=== PATIENT | female | born 1955 | race Caucasian/White ===

== ENCOUNTER → 2020-04-07 10:25 | Outpatient (BNVA) | payer OTHER, SELFPAY | PROVIDERS: PCP Internal Medicine; Visit Provider Anesthesiology | DX: Z76.89 Persons encountering health services in other specified circumstances (principal) ==

== ENCOUNTER → 2020-05-23 13:05 | Outpatient (BNVA) | payer OTHER, SELFPAY | PROVIDERS: PCP Internal Medicine; Visit Provider Anesthesiology | DX: Z76.89 Persons encountering health services in other specified circumstances (principal) ==

== ENCOUNTER 2021-03-20 16:22 | Outpatient (REF) | payer OTHER, SELFPAY | END 2021-03-20 16:23 | disposition home or self-care (01) | LOC: HO.LNP 16:22 | PROVIDERS: Visit Provider Physician Assistant | DX: J32.9 Chronic sinusitis, unspecified (principal); Z20.822 Contact with and (suspected) exposure to COVID-19 | CPT/HCPCS: U0003; U0005 ==

== ENCOUNTER 2021-09-22 06:57 | Outpatient (REF) | payer OTHER, SELFPAY ==
[2021-09-22 11:28] LABS: Appearance Urine HAZY; Color Urine YELLOW; Glucose Urine UA NEG (NEG); Leukocyte Esterase Urine NEG (NEG); Nitrite Urine NEG (NEG); PH 5.5 (5.0-8.0); Specific Gravity - Urine >= 1.030 (1.005-1.025); Urine Blood NEG (NEG); Urine Ketones 5 MG/DL (NEG); Urine Protein NEG (NEG-TRACE)
[2021-09-22 11:54] LABS: Alanine Aminotransferase 11 U/L (0-31); Albumin Level 4.1 g/dL (3.5-5.0); Alkaline Phosphatase 80 U/L (39-117); Anion Gap 10 (12-20); Aspartate Amino Transferase 13 U/L (5-31); Bilirubin Total 0.5 mg/dL (0.0-1.0); Blood Urea Nitrogen 16 mg/dL (9-16); Calcium 9.5 mg/dL (8.4-10.2); Carbon Dioxide 26 mmol/L (22-29); Chloride 107 mmol/L (96-108); Cholesterol 173 mg/dL; Estimated Glomerular Filt Rate > 60; Glucose Fasting 109 mg/dL (60-99); HDL Cholesterol 54 mg/dL; LDL Cholesterol Calculated 104 mg/dl; Potassium 4.3 mmol/L (3.3-5.1); Sodium 139 mmol/L (135-145); Total Protein 6.9 g/dL (6.5-8.0); Triglycerides 78 mg/dL
[2021-09-22 12:15] LABS: TSH reflex Free T4 3.42 uIU/mL (0.32-4.0)
== END 2021-09-22 06:58 | disposition home or self-care (01) ==
LOC: HO.HMGCLDS 06:57
PROVIDERS: Visit Provider Nurse Practitioner Family
DX: F41.8 Other specified anxiety disorders (principal); F17.200 Nicotine dependence, unspecified, uncomplicated
CPT/HCPCS: 36415; 80053; 80061; 81003; 84443

== ENCOUNTER 2022-01-26 07:00 | Outpatient (REF) | payer OTHER, SELFPAY ==
[2022-01-26 11:27] LABS: MANUAL DIFF FLAG NO
[2022-01-26 11:43] LABS: Basophils Absolute Auto 0.1 X10*3/uL (0.0-0.2); Basophils Percent Auto 0.9 % (0-2); Eosinophils Absolute Auto 0.1 X10*3/uL (0.0-0.4); Eosinophils Percent Auto 1.9 % (0-4); Hematocrit 41.1 % (37.0-47.0); Hemoglobin 13.9 g/dl (12.0-16.0); Imm Gran Abs Auto 0.02 X10*3/uL (0.00-0.03); Imm Gran Pct Auto 0.3 % (0.0-0.4); Lymphocytes Absolute Auto 1.7 X10*3/uL (1.2-4.9); Lymphocytes Percent Auto 24.3 % (20-40); Mean Corpuscular HGB Conc 33.8 g/dl (31.0-35.0); Mean Corpuscular Hemoglobin 31.7 pg (27.0-33.0); Mean Corpuscular Volume 93.6 fL (80.0-98.0); Mean Platelet Volume 10.9 fL (9.4-12.3); Monocytes Absolute Auto 0.5 X10*3/uL (0.1-1.2); Monocytes Percent Auto 7.6 % (2-11); Neutrophils Absolute Auto 4.4 x10*3/uL (2.0-8.3); Platelet Count 271 X10*3/uL (160-400); Red Blood Count 4.39 X10*6/uL (4.20-5.50); Red Cell Distribution Width 12.4 % (11.0-16.0); White Blood Count 6.8 X10*3/uL (4.8-10.8)
[2022-01-26 12:11] LABS: Alanine Aminotransferase 12 U/L (0-31); Albumin Level 4.2 g/dL (3.5-5.0); Alkaline Phosphatase 82 U/L (39-117); Anion Gap 14 (12-20); Aspartate Amino Transferase 15 U/L (5-31); Bilirubin Total 0.4 mg/dL (0.0-1.0); Blood Urea Nitrogen 16 mg/dL (9-16); Calcium 9.1 mg/dL (8.4-10.2); Carbon Dioxide 24 mmol/L (22-29); Chloride 108 mmol/L (96-108); Cholesterol 152 mg/dL; Estimated Glomerular Filt Rate > 60; Glucose Fasting 105 mg/dL (60-99); HDL Cholesterol 54 mg/dL; LDL Cholesterol Calculated 87 mg/dl; Potassium 4.1 mmol/L (3.3-5.1); Sodium 142 mmol/L (135-145); Total Protein 6.8 g/dL (6.5-8.0); Triglycerides 57 mg/dL
[2022-01-26 12:39] LABS: TSH reflex Free T4 3.09 uIU/mL (0.32-4.0)
[2022-01-29 20:12] LABS: A. Phagocytphilium DNA,RT-PCR NOT DETECTED (NOT DETECTED); Babesia Microti DNA, RT-PCR NOT DETECTED (NOT DETECTED); Borrelia Miyamotoi,DNA RT-PCR NOT DETECTED (NOT DETECTED); E.Chaffeensis DNA RT-PCR NOT DETECTED (NOT DETECTED); Lyme(Borrelia ssp)DNA RT-PCR NOT DETECTED (NOT DETECTED)
[2022-01-30 13:00] LABS: Source-Tick borne disease BLOOD
== END 2022-01-26 07:01 | disposition home or self-care (01) ==
LOC: HO.HMGCLDS 07:00
PROVIDERS: PCP Nurse Practitioner Family; Visit Provider Nurse Practitioner Family
DX: R29.810 Facial weakness (principal); R47.81 Slurred speech
CPT/HCPCS: 36415; 80053; 80061; 84443; 85025; 87798; 87801

== ENCOUNTER 2022-01-27 07:06 | Outpatient (REF) | payer OTHER, SELFPAY ==
[2022-01-27 11:55] LABS: Appearance Urine Clear; Color Urine Yellow; Glucose Urine UA Negative (Negative); Leukocyte Esterase Urine Negative (Negative); Nitrite Urine Negative (Negative); Urine Blood Negative (Negative); Urine Ketones Negative (Negative); Urine Protein Negative (Neg-Trace)
== END 2022-01-27 07:07 | disposition home or self-care (01) ==
LOC: HO.HMGCLDS 07:06
PROVIDERS: PCP Nurse Practitioner Family; Visit Provider Nurse Practitioner Family
DX: R29.810 Facial weakness (principal); R47.81 Slurred speech
CPT/HCPCS: 81003

== ENCOUNTER 2022-03-19 07:44 | Outpatient (REF) | payer MEDICARE, SELFPAY ==
[2022-03-19 08:45] LABS: Alanine Aminotransferase 12 U/L (0-31); Albumin Level 4.1 g/dL (3.5-5.0); Alkaline Phosphatase 92 U/L (39-117); Anion Gap 14 (12-20); Aspartate Amino Transferase 15 U/L (5-31); Bilirubin Total 0.5 mg/dL (0.0-1.0); Blood Urea Nitrogen 16 mg/dL (9-16); Calcium 9.1 mg/dL (8.4-10.2); Carbon Dioxide 24 mmol/L (22-29); Chloride 108 mmol/L (96-108); Estimated Glomerular Filt Rate > 60; Glucose Random 102 mg/dL (60-115); Potassium 4.4 mmol/L (3.3-5.1); Sodium 142 mmol/L (135-145); Total Protein 6.8 g/dL (6.5-8.0)
== END 2022-03-19 07:45 | disposition home or self-care (01) ==
LOC: HO.LAB 07:44
PROVIDERS: PCP Nurse Practitioner Family; Visit Provider Nurse Practitioner Family
DX: R29.810 Facial weakness (principal); R47.81 Slurred speech
CPT/HCPCS: 36415; 80053

== ENCOUNTER 2022-03-20 | Outpatient (REF) | payer MEDICARE, SELFPAY ==
--- NOTE | ~2022-03-20 | XR_ITS ---
EXAMINATION: XR HAND, LEFT CLINICAL INFORMATION: Pain COMPARISON: None TECHNIQUE: PA, lateral, and oblique views of the left hand. FINDINGS: There is moderate arthritic change at the first CMC joint. There is degenerative changes observed at the second DIP joint. No erosive change. No fracture, dislocation or destructive process. XR/XR hand LT min 3V IMPRESSION: Degenerative change noted.
== END 2022-03-20 00:01 | disposition home or self-care (01) ==
LOC: HO.HOSX
PROVIDERS: Visit Provider Physician Assistant
DX: M72.0 Palmar fascial fibromatosis [Dupuytren] (principal)
CPT/HCPCS: 73130; 99202

== ENCOUNTER 2022-03-23 09:49 | Outpatient (REF) | payer MEDICARE, SELFPAY ==
--- NOTE | ~2022-03-23 | CT_ITS ---
CT HEAD WITH/WITHOUT CONTRAST CLINICAL INFORMATION: Facial weakness. COMPARISON: Head CT 02/28/2017. TECHNIQUE: Contiguous axial imaging was performed from the skull base to vertex before and after the administration of 85 mL of Omnipaque [address] examination was performed using dose optimization techniques as appropriate, variously including the following: *Automated exposure control *Adjustment of mA and/or kV according to patient size (this includes techniques or standardized protocols for targeted exams where dose is matched to indication/reason for exam; i.e. extremities or head) *Use of iterative reconstruction technique FINDINGS: Partially empty sella. No pathologic enhancement intracranially. There is no intracranial hemorrhage, hydrocephalus, extra-axial surface collection, midline shift, or other herniation pattern. Crespo to white matter differentiation is diffusely maintained without evidence of an evolved acute territorial infarct. The basilar cisterns are preserved. No significant soft tissue abnormality. No acute osseous abnormality. The paranasal sinuses and the mastoid air cells are well aerated. CT/CT head/brain wo/w IV con IMPRESSION: No acute intracranial findings. No pathologic enhancement intracranially. Partially empty sella.
[2022-03-23] MEDS: iohexoL 350 MG/ML 100 ML INFUS..BTL IV (10:53)
== END 2022-03-23 09:50 | disposition home or self-care (01) ==
LOC: HO.CT 09:49
PROVIDERS: PCP Nurse Practitioner Family; Visit Provider Nurse Practitioner Family
DX: R29.810 Facial weakness (principal); R47.81 Slurred speech
CPT/HCPCS: 70470; Q9967

== ENCOUNTER → 2022-04-17 10:38 | Outpatient (BNVA) | payer MEDICARE, SELFPAY | PROVIDERS: PCP Nurse Practitioner Family; Visit Provider Orthopaedic Surgery | DX: M72.0 Palmar fascial fibromatosis [Dupuytren] (principal) | CPT/HCPCS: 99202 ==

== ENCOUNTER → 2022-05-30 09:35 | Outpatient (BNVA) | payer MEDICARE, SELFPAY | PROVIDERS: PCP Nurse Practitioner Family; Visit Provider Orthopaedic Surgery | DX: G89.4 Chronic pain syndrome (principal); M72.0 Palmar fascial fibromatosis [Dupuytren]; F17.210 Nicotine dependence, cigarettes, uncomplicated | CPT/HCPCS: 99212 ==

== ENCOUNTER 2022-06-07 07:03 | Day surgery (SDC) | payer MEDICARE, SELFPAY ==
[2022-06-01 09:23] VITALS: BMI 32.5
--- NOTE | 2022-06-06 09:35 | P.CONAN_ITS ---
Documented by User: Larisa Rahman NP 06/06/22 09:37 HPI - Anesthesia Eval Consult details Narrative: 67yo F for Left Ring finger Partial Dupuytrens Fasciectomy PMFSH Active Problems Active Problems: All Active Problems (Updated 06/01/22 @ 09:19 by Yanet Cartwright RN) GERD (gastroesophageal reflux disease) (Acute) Sinus infection (Acute) Smoker (Acute) Anxiety (Acute) Depression, major, in partial remission (Acute) Acute bronchitis (Acute) Seasonal allergies (Acute) Slurred speech (Acute) Facial droop (Acute) Dupuytren's contracture of left hand (Acute) Dupuytren's disease of both palm and finger with contracture (Acute) Dupuytren's disease of palm of right hand (Acute) Depression with anxiety (Acute) Chronic pain syndrome (Acute) Sacroiliitis (Acute) Past Medical History Medical History Arthritis Chronic pain syndrome Depression with anxiety Elevated cholesterol GERD (gastroesophageal reflux disease) Sacroiliitis Sleep apnea SVT (supraventricular tachycardia) Surgical History Surgical History H/O colonoscopy History of cardiac radiofrequency ablation (RFA) Hx of rotator cuff surgery Social History Social History Household Members Other:: daughter Housing: House Are you a primary team primary care physician to a significant other at home: No Do you presently have visiting nurse or other home services: No Patient Tobacco Use Status: Current someday Tobacco user Tobacco use type: Cigarette Cigarettes Per Day: 3 Years Smoked: 40 e-Cigarette/Vaping Use: Never Used Second Hand Smoke Exposure: No Use of substances other than those prescribed or required for medical reasons: No Have you been hit, kicked, punched, or otherwise hurt by someone within the past year? If so, by whom?: No Are you DNR?: No Advance Directives: No Advance Directives Information Provided: Yes (brochure mailed) Advance Directives on File: No Recently lost weight without trying: No Eating poorly because of decreased appetite: No Nutrition Risks: No Nutritional Risk Poor oral hygiene: No service: No Current occupational status: retired Current occupation: works part [employer], [employer] Current occupational exposures/hazards: No Cognitive needs: No Hearing needs: No Vision needs: Yes Meds Allergies Allergy/AdvReac Type Severity Reaction Status Date / Time No Known Allergies Allergy Verified 06/07/22 07:09 [No Known Allergies*] Home Medications Medication Instructions Recorded Confirmed Last Taken Type bupropion HCl 300 mg 24 hr tablet, 300 mg PO DAILY 04/07/20 06/01/22 06/07/22 06:30 History extended release duloxetine 60 mg capsule,delayed 60 mg PO QAM 04/07/20 06/01/22 06/07/22 06:30 History release lorazepam 1 mg tablet 0.5 mg PO BID PRN Anxiety 04/07/20 06/01/22 Unknown History albuterol sulfate 90 mcg/actuation 2 inh inhalation Q4H PRN Allergy 06/14/21 06/01/22 Unknown History breath activated powder inhaler Symptoms (ProAir RespiClick) duloxetine 30 mg capsule,delayed 30 mg PO QAM 06/14/21 06/01/22 06/07/22 06:30 History release ziprasidone HCl 20 mg capsule 20 mg PO BEDTIME 06/01/22 06/01/22 Unknown History Exam Exam Date and Time: June 06, 2022 0935 Height,Weight and Vital Signs: Height 5 ft 4 in Weight 86.183 kg Pertinent Lab Results Pertinent Lab Results: Laboratory Tests 01/26/22 03/19/22 07:06 07:49 WBC 6.8 Hgb 13.9 Hct 41.1 Plt Count 271 Sodium 142 Potassium 4.4 Chloride 108 Carbon Dioxide 24 BUN 16 Creatinine 0.83 Assessment and Plan Assessment Anesthesia Assessment: Chart Reviewed Documented by User: Nancy Garcia MD 06/07/22 09:15 PMFSH Past Medical History Medical History Arthritis Chronic pain syndrome Depression with anxiety Elevated cholesterol GERD (gastroesophageal reflux disease) Sacroiliitis Sleep apnea SVT (supraventricular tachycardia) Surgical History Surgical History H/O colonoscopy History of cardiac radiofrequency ablation (RFA) Hx of rotator cuff surgery Social History Social History Household Members Other:: daughter Housing: House Are you a primary team primary care physician to a significant other at home: No Do you presently have visiting nurse or other home services: No Patient Tobacco Use Status: Current someday Tobacco user Tobacco use type: Cigarette Cigarettes Per Day: 3 Years Smoked: 40 e-Cigarette/Vaping Use: Never Used Second Hand Smoke Exposure: No Use of substances other than those prescribed or required for medical reasons: No Have you been hit, kicked, punched, or otherwise hurt by someone within the past year? If so, by whom?: No Are you DNR?: No Advance Directives: No Advance Directives Information Provided: Yes (brochure mailed) Advance Directives on File: No Recently lost weight without trying: No Eating poorly because of decreased appetite: No Nutrition Risks: No Nutritional Risk Poor oral hygiene: No service: No Current occupational status: retired Current occupation: works part [employer] [facility] [employer] Current occupational exposures/hazards: No Cognitive needs: No Hearing needs: No Vision needs: Yes Meds Allergies Allergy/AdvReac Type Severity Reaction Status Date / Time No Known Allergies Allergy Verified 06/07/22 07:09 [No Known Allergies*] Home Medications Medication Instructions Recorded Confirmed Last Taken Type bupropion HCl 300 mg 24 hr tablet, 300 mg PO DAILY 04/07/20 06/01/22 06/07/22 06:30 History extended release duloxetine 60 mg capsule,delayed 60 mg PO QAM 04/07/20 06/01/22 06/07/22 06:30 History release lorazepam 1 mg tablet 0.5 mg PO BID PRN Anxiety 04/07/20 06/01/22 Unknown History albuterol sulfate 90 mcg/actuation 2 inh inhalation Q4H PRN Allergy 06/14/21 06/01/22 Unknown History breath activated powder inhaler Symptoms (ProAir RespiClick) duloxetine 30 mg capsule,delayed 30 mg PO QAM 06/14/21 06/01/22 06/07/22 06:30 History release ziprasidone HCl 20 mg capsule 20 mg PO BEDTIME 06/01/22 06/01/22 Unknown History Exam Airway Mallampati Class: II TM Dist: >3cm Neck ROM: Full Heart: rrr Lungs: cta Assessment and Plan Assessment Anesthesia Assessment: Anesthesia Plan Discussed Final Anesthetic Review Procedure Risk: Low Anesthetic Plan Anesthetic Plan: GA Disposition: Standard PACU
[2022-06-07] VITALS (11 sets, daily range): BP systolic 109–138; BP diastolic 41–63; PULSE 71–76; RESP 15–20; TEMP 36.2–36.8; O2SAT 93–98
[2022-06-07] MEDS: Lactated Ringers 1,000 ML 100 ML IVCONT (07:29)
--- NOTE | 2022-06-07 07:54 | P.OP_ITS ---
Operative Note Operative Note Date of Service: 06/07/22 Narrative: Preop diagnosis: 1. left ring finger Dupuytren's contracture Postop diagnosis: Same Procedure: 1. left hand and ring finger Partial Dupuytren's fasciectomy Surgeon: Radha Green MD Anesthesia: General anesthesia plus regional block Findings: Dupuytren's cord. Implants: None Tourniquet time: Forty-eight minutes EBL: 5.0 ml Specimen: left ring finger Dupuytren's cord Drains: None Complications: None Disposition: Brought to the recovery room in stable condition Plan: Follow-up in 10-14 days for wound check, suture removal and to check pathology OT appt on day of f/u to make a custom night spint and to begin OT Indications: The patient is a 67 year old woman with left ring finger Dupuytren's contracture . The risks and benefits of operative treatment, in cluding but not limited to risk of damage to blood vessels, nerves, tendons, infection, recurrence, persistent pain or numbness, incomplete resolution of preoperative symptoms, or need for further surgery were discussed with the patient and they wished to proceed with surgery. Procedure: Once consent was obtained patient was brought back to the operating suite and placed in the operating table in a supine position. . Perioperative antibiotics and anesthesia was administered by the anesthesia team. A tourniquet was applied to the proximal aspect of the left upper extremity and the limb was prepped and draped in a standard surgical fashion. The limb was elevated exsanguinated with Esmarch bandage and the tourniquet inflated to 250 mm of mercury for a total tourniquet time of 48 minutes. I made a Maribel type incision extending along the Dupuytren's cord from the mid palm to the PIP flexion crease of the left ring finger. The Incision was made with a 15. Blade through the skin the subcutaneous tissues. I then carefully dissected down to the level of the Dupuytren's cord beginning at the proximal aspect of the incision. This was done using tenotomy in iris scissors. Care was taken to protect the nearby neurovascular structures. The Dupuytren's cord was cut at its proximal aspect using tenotomy scissors. It was then grasped with an Allis clamp. The Dupuytren's cord was then carefully dissected free in a proximal to distal direction using tenotomy scissors and again taking care to protect the nearby neurovascular structures. the cord was attached distally to the skin and tendon sheath in the area of the proximal phalanx. the cord was mobilized from these tissues, removed from the patient and placed on the back table to be sent for histopathology. The left ring finger was then able to be brought into full extension at all joints. At this point the tourniquet was deflated and hemostasis obtained with a brief period of local pressure . The wound was copiously irrigated with normal saline. Theskin edges were reapproximated with 5-0 Prolene suture. The wound was infiltrated with some 1% lidocaine with epinephrine for postop pain control and a sterile dressing and volar splint holding the small and ring fingers in extension was applied. The patient appears to have tolerated the procedure well and with no complications. All digits were well vascularized conclusion of the case.
--- NOTE | 2022-06-07 07:54 | MHC.SHP ---
Pre-Procedural Eval Section A Date of Service: 06/07/22 The patient is an INPATIENT: No Changes since office visit: No Cold of Flu in the past 2 weeks, No New Medical Problems, No Changes in Medication and No Patient answered all questions The History & Physical has been completed within 30 days and I have reviewed it.: Yes Section B Chief Complaint: Palmar fascial fibromatosis [Dupuytren] Allergies: Allergies Allergy/AdvReac Type Severity Reaction Status Date / Time No Known Allergies Allergy Verified 06/07/22 07:09 [No Known Allergies*] Plan I have reviewed the history and physical and performed a pertinent physical examination on my patient. No changes have occurred unless specified. Time Spent With Patient Time: Total time managing care of this patient today ____ minutes.
[2022-06-07] MEDS: oxyCODONE HCl Immed Release 5 MG TABLET PO (10:56)
[2022-06-07] MEDS: fentaNYL citrate/PF 100 MCG/2 ML VIAL 25 MCG IVPUSH ×2 (10:57→11:09)
== END 2022-06-07 12:32 ==
LOC: HO.SSS 07:03
PROVIDERS: PCP Nurse Practitioner Family; Visit Provider Orthopaedic Surgery
PROC: (CPT 26045; principal; 2022-06-07 08:40)
DX: M72.0 Palmar fascial fibromatosis [Dupuytren] (principal); G89.4 Chronic pain syndrome; G47.33 Obstructive sleep apnea (adult) (pediatric); E78.00 Pure hypercholesterolemia, unspecified; F32.9 Major depressive disorder, single episode, unspecified; F41.8 Other specified anxiety disorders; F17.210 Nicotine dependence, cigarettes, uncomplicated
CPT/HCPCS: 26045; 88304; J0690; J1885; J2405; J3010

== ENCOUNTER → 2022-06-20 08:40 | Outpatient (BNVA) | payer MEDICARE, SELFPAY | PROVIDERS: PCP Nurse Practitioner Family; Visit Provider Orthopaedic Surgery | DX: Z13.89 Encounter for screening for other disorder (principal) | CPT/HCPCS: 99212 ==

== ENCOUNTER 2022-06-27 14:21 | Outpatient (REF) | payer MEDICARE, SELFPAY ==
--- NOTE | ~2022-06-27 | MM_ITS ---
EXAMINATION: BONE DENSITOMETRY CLINICAL INDICATION: Menopause. COMPARISON: None (current study represents initial baseline exam). TECHNIQUE: Using a [employer] DXA System (software version: 13.1) manufactured by [employer], dual-energy x-ray absorptiometry was performed of the lumbar spine and left hip. The images are of good technical quality. Summary results are attached. FINDINGS: AP SPINE L1-L4: BMD 1.141 g/cm2, Z-score 0.6, T-score -0.3, normal. LEFT FEMUR, NECK: BMD 0.833 g/cm2, Z-score -0.4, T-score -1.5, osteopenia. LEFT FEMUR, TOTAL: BMD 0.841 g/cm2, Z-score -0.6, T-score -1.3, osteopenia. IDENTIFIED RISK FACTORS: Menopause, bilateral oophorectomy, hysterectomy, tobacco use (current smoker). HISTORY OF FRACTURE: None listed. MEDICATIONS: Calcium, vitamin D. MM/XR DEXA axial skeleton IMPRESSION: 1. DIAGNOSIS: Osteopenia based on the lowest T-score value of -1.5 in the femoral neck applying World Health Organization criteria. 2. 10-YEAR FRACTURE RISK PREDICTION, FRAX: Major osteoporotic fracture (clinical spine, forearm, hip or shoulder) 8.6%. Hip fracture 1.5%. 3. Treatment Recommendations: NOF guidelines recommend consideration for treatment in postmenopausal women and men age 50 and older presenting with the following: -A hip or vertebral (clinical or morphometric) fracture. -T-score less than or equal to -2.5 at the femoral neck or spine after appropriate evaluation to exclude secondary causes. -Low bone mass at the hip or spine and a 10-year fracture probability by FRAX of greater than or equal to 3% for hip fracture or greater than or equal to 20% for major osteoporotic fracture based on the [place] adapted WHO algorithm. 4. Other Recommendations: All treatment decisions require clinical judgment and consideration of individual patient factors, including patient preferences, comorbidities, previous drug use, risk factors not captured in the FRAX model (e.g. frailty, falls, vitamin D deficiency, increased bone turnover, interval significant decline in bone density) and possible under or overestimation of fracture risk by FRAX. Additional medical evaluation for secondary cause of low bone mineral density may be appropriate. FUTURE SCAN RECOMMENDATION: People with diagnosed cases of osteoporosis or at high risk for fracture should have regular bone mineral density tests. For patients eligible for Medicare, routine testing is allowed once every 2 years. The testing frequency can be increased to one year for patients who have rapidly progressing disease, those who are receiving or discontinuing medical therapy to restore bone mass, or have additional risk factors.
== END 2022-06-27 14:22 | disposition home or self-care (01) ==
LOC: HO.MAMMO 14:21
PROVIDERS: PCP Nurse Practitioner Family; Visit Provider Nurse Practitioner Family
DX: Z13.820 Encounter for screening for osteoporosis (principal); Z78.0 Asymptomatic menopausal state
CPT/HCPCS: 77080

== ENCOUNTER 2022-07-13 08:30 | Outpatient (RCR) | payer MEDICARE, SELFPAY ==
--- NOTE | 2022-06-20 11:00 | MHC.OT.EP ---
[address] [phone] Occupational Therapy Plan of Care Date of Evaluation: 06/20/22 Diagnosis: Left ring finger partial Dupuytren's fasciectomy Pain Location: Tenderness in palm over surgical site, mostly at MCP crease More pain in healing blistered area 1/10 palm and 3/10 left lateral middle finger Pain Score: 3 Pain Scale Used: Numeric (0 - 10) Aggravating Factors: Pressure, use Alleviating Factors: Tylenol Assessment: 67 yo female w/ hx of Dupuytren's contracture presents to OT almost two weeks post-op left ring finger partial fasciectomy. She was seen for post-op visit w/ Dr Green this morning, sutures removed and steri-strips placed, educated on ROM and referred to OT for continuation of therapy and custom nighttime orthosis. On assessment, surgical incision is healing well and steri strips are intact to palm and lower digit. She has healing area on left lateral middle finger where she had developed post-op blister that is now drained and dry, but red. She has good ROM w/ full extension and nearby full composite and hook fist. She is very motivated and receptive to therapeutic process and will benefit from brief course of therapy for splint management, home exercise program and progression of scar management. Frequency and Duration: The patient will be seen 2x/wk for 4 weeks Short Term Goals: Ind w/ nighttime orthosis wear Good follow through w/ HEP for digit ROM Good follow through w/ basic hygiene to hand Usp Goals: Ind w/ scar/soft tissue management techniques Pt to demo full AROM left hand/digits Pt to demo good use of left hand w/ bimanual FMC tasks Ind to open jars and containers Pt to report return to part-time work Treatment Plan: Therapeutic Exercise Therapeutic Activity Home Exercise Program Splinting Patient Education Edema Control ADL Training Paraffin Fluidotherapy MHP Cold Packs Soft Tissue Mobilization Nighttime hand based orthosis Electronically Signed By: THERESA Mejia/Vernell CHT Please Sign and return to therapist. Thank you once again for your referral.
--- NOTE | 2022-07-13 09:00 | MHC.OT.DC ---
[address] [phone] F: [phone] Occupational Therapy Discharge Note Provider: Dr Radha Green Diagnosis: Left ring finger partial Dupuytren's fasciectomy Date of Surgery: 06/07/22 Date of Evaluation: 06/20/22 Date of Discharge: 07/13/22 Treatments to Date: 5 Discharge Status: Achieved Goals Improved Function Independent with HEP Discharge Summary: Nereida is doing very well at 5 weeks post op left ring finger Dupuytren's release. She has good range and functional strength. No issues w/ daily activities or work tasks, Good understanding of HEP, scar care and nighttime orthosis wear. Ind w/ self management. Electronically Signed By: THERESA Mejia/Vernell MCDOWELLT Reviewed/agree with student documentation: Therapist: Please Sign and return to therapist, thank you for your referral.
== END 2022-07-13 09:01 | disposition home or self-care (01) ==
LOC: HO.OT 08:30
PROVIDERS: PCP Nurse Practitioner Family; Visit Provider Orthopaedic Surgery
DX: M72.0 Palmar fascial fibromatosis [Dupuytren] (principal)
CPT/HCPCS: 29130; 97110; 97140; 97165; 97760

== ENCOUNTER → 2022-08-29 09:06 | Outpatient (BNVA) | payer MEDICARE, SELFPAY | PROVIDERS: PCP Nurse Practitioner Family; Visit Provider Physician Assistant | DX: Z86.010 Personal history of colon polyps (principal) | CPT/HCPCS: 99202 ==

== ENCOUNTER 2022-10-24 09:02 | Outpatient (REF) | payer MEDICARE, SELFPAY ==
--- NOTE | ~2022-10-24 | XR_ITS ---
EXAMINATION: XR KNEE, LEFT CLINICAL INFORMATION: Left knee pain COMPARISON: None available. TECHNIQUE: Four views of the left knee. FINDINGS: Bones and soft tissues are normal. No fracture or joint effusion. Alignment is anatomic. Joint spaces are well maintained. No abnormal soft tissue calcification. XR/XR knee LT 4V IMPRESSION: Unremarkable left knee
== END 2022-10-24 09:03 | disposition home or self-care (01) ==
LOC: HO.HMGCX 09:02
PROVIDERS: PCP Nurse Practitioner Family; Visit Provider Physician Assistant
DX: M25.562 Pain in left knee (principal)
CPT/HCPCS: 73564

== ENCOUNTER 2022-10-31 07:03 | Day surgery (SDC) | payer MEDICARE, SELFPAY ==
[2022-10-25 14:46] VITALS: BMI 33.0
[2022-10-25 16:28] VITALS: BMI 33.0
[2022-10-31 07:31] VITALS: BP 124/62; PULSE 68; RESP 16; TEMP 36; O2SAT 95
--- NOTE | 2022-10-31 07:31 | P.CONAN_ITS ---
[facility] Active Problems Active Problems: All Active Problems (Updated 10/25/22 @ 16:27 by Nereida Freeman RN) GERD (gastroesophageal reflux disease) (Acute) Sinus infection (Acute) Smoker (Acute) Anxiety (Acute) Depression, major, in partial remission (Acute) Acute bronchitis (Acute) Seasonal allergies (Acute) Slurred speech (Acute) Facial droop (Acute) Dupuytren's contracture of left hand (Acute) Dupuytren's disease of both palm and finger with contracture (Acute) Dupuytren's disease of palm of right hand (Acute) Dyslipidemia (Acute) Screen for colon cancer (Acute) Postmenopausal (Acute) Upper respiratory tract infection (Acute) Numbness of tongue (Acute) History of colon polyps (Acute) Knee pain (Acute) Depression with anxiety (Acute) Chronic pain syndrome (Acute) Sacroiliitis (Acute) Past Medical History Medical History (Updated 10/25/22 @ 16:27 by Nereida Freeman RN) Arthritis Chronic pain syndrome Depression with anxiety Elevated cholesterol GERD (gastroesophageal reflux disease) Sacroiliitis Sleep apnea SVT (supraventricular tachycardia) Swelling of knee joint, left Family History Family history of problems with anesthesia: No Surgical History Surgical History (Updated 10/25/22 @ 16:21 by Nereida Freeman RN) H/O colonoscopy History of cardiac radiofrequency ablation (RFA) Hx of hand surgery Hx of rotator cuff surgery History of Problems with Anesthesia: No Social History Social History Household Members Other:: daughter Housing: House Are you a primary career services manager to a significant other at home: No Do you presently have visiting nurse or other home services: No Patient Tobacco Use Status: Current everyday Tobacco user Tobacco use type: Cigarette Cigarettes Per Day: 6 Years Smoked: 40 e-Cigarette/Vaping Use: Never Used Second Hand Smoke Exposure: No Use of substances other than those prescribed or required for medical reasons: No Have you been hit, kicked, punched, or otherwise hurt by someone within the past year? 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 Current occupational exposures/hazards: No Cognitive needs: No Hearing needs: No Vision needs: Yes Meds Allergies Allergy/AdvReac Type Severity Reaction Status Date / Time No Known Allergies Allergy Verified 10/24/22 08:48 [No Known Allergies*] Home Medications Medication Instructions Recorded Confirmed Last Taken Type bupropion HCl 300 mg 24 hr tablet, 300 mg PO DAILY 04/07/20 10/25/22 06/07/22 06:30 History extended release duloxetine 60 mg capsule,delayed 60 mg PO QAM 04/07/20 10/25/22 06/07/22 06:30 History release lorazepam 1 mg tablet 0.5 mg PO BID PRN Anxiety 04/07/20 10/25/22 Unknown History albuterol sulfate 90 mcg/actuation 2 inh inhalation Q4H PRN Allergy 06/14/21 10/25/22 Unknown History breath activated powder inhaler Symptoms (ProAir RespiClick) duloxetine 30 mg capsule,delayed 30 mg PO QAM 06/14/21 10/25/22 06/07/22 06:30 History release Exam Exam Date and Time: October 31, 2022 0731 Height,Weight and Vital Signs: Height 5 ft 4 in Weight 87.09 kg Airway Mallampati Class: II TM Dist: >3cm Neck ROM: Full Assessment and Plan Assessment Anesthesia Assessment: Anesthesia Plan Discussed, Smoking Cess. Discussed and Chart Reviewed Final Anesthetic Review Family History of Problems with Anesthesia: No History of Problems with Anesthesia: No NPO: Yes ASA Class: II Final Preanesthetic Review: No Changes in Pt Med Stat, Meds/Allgs Chart Reviewed, Consent Obtained/Reviewed and Anes Risks/Benef Reviewed Patient Risk: Low Procedure Risk: Low Anesthetic Plan Anesthetic Plan: MAC: Disposition: Standard PACU
--- NOTE | 2022-10-31 08:26 | MHC.SHP ---
Pre-Procedural Eval Section A Date of Service: 10/31/22 Section B Chief Complaint: Personal history of colonic polyps Relevant Family History (Specify if Yes): No Relevant Social History: Tobacco Use Present Medications: see Short Stay Collaborative assessment Medical History: Significant History (Arthritis Chronic pain syndrome Depression with anxiety Elevated cholesterol GERD (gastroesophageal reflux disease) Sacroiliitis Sleep apnea SVT (supraventricular tachycardia) Swelling of knee joint, left) History of Previous Operations: Relevant previous surgery/procedure and date(s) (H/O colonoscopy History of cardiac radiofrequency ablation (RFA) Hx of hand surgery Hx of rotator cuff surgery) Allergies: Allergies Allergy/AdvReac Type Severity Reaction Status Date / Time No Known Allergies Allergy Verified 10/24/22 08:48 [No Known Allergies*] Review of Systems Sugical H&P ROS: Negative: Constitution, Cardiovascular, Respiratory, Neurological, Psychiatric, Hem-Onc, Allergic/Immunologic, Gastrointestinal, Genitourinary, Musculoskeletal, Integumentary, Endocrine and Eyes/Ears/Nose/Throat Exam Surgical H&P Exam: Normal: HEENT, Normal: Heart, Normal: Lungs, Normal: Extremities, Normal: Abdomen, Normal: Skin and Normal: Neurological Plan Diagnosis/Plan: Unchanged I have reviewed the history and physical and performed a pertinent physical examination on my patient. No changes have occurred unless specified. Time Spent With Patient Time: Total time managing care of this patient today ____ minutes.
--- NOTE | 2022-10-31 08:27 | P.OP_ITS ---
Operative Note Operative Note Date of Service: 10/31/22 Narrative: Operative Information Procedure Description: Colonoscopy Indication: hx of colon polyps Anesthesia: MAC COLONOSCOPY Instrument: Olympus variable stiffness pediatric scope 190L Colonoscopy Monitoring: Vital signs and clinical assessment, continuous EKG monitoring, Pulse oximetry, Carbon Dioxide monitoring and blood pressure monitoring were done throughout the procedure. Procedure: The patient was placed in the left lateral decubitis position and pre-procedure medications were administered. After a digital rectal examination of the ano-rectum, the video colonoscope was inserted into the rectum and advanced through the colon to the ascending colon The colonoscope was slowly withdrawn in a retrograde panoramic fashion and the colon mucosa was carefully examined including a retroflexed view of the rectum. Findings and interventions are described below. Procedure Difficulty: [] Findings: Terminal Ileum-not reached Cecum:not reached Ascending Colon: normal Transverse Colon -normal Descending Colon:normal Sigmoid Colon: normal Rectum: Retroflexion with small internal hemorrhoids, grade I, x 2 sessile polyps 10 mm removed with cold snare Anorectum - normal Colon preparation: [place] Bowel Preparation Scale Right colon; 0 Transverse colon: 1 Left colon; 1-2 (0 = Unprepared colon segment with mucosa not seen due to solid stool that cannot be cleared. 1 = Portion of mucosa of the colon segment seen, but other areas of the colon segment not well seen due to staining, residual stool and/or opaque liquid. 2 = Minor amount of residual staining, small fragments of stool and/or opaque li quid, but mucosa of colon segment seen well. 3 = Entire mucosa of colon segment seen well with no residual staining, small fragments of stool or opaque liquid) Impression and Post Procedure Diagnosis: internal hemorrhoids polyps poor prep, procedure incomplete Plan: High fiber diet leaflet Avoid straining at stool, epsom salts and sitz bath, anusol supps or cream Repeat Colonoscopy in 2-3 months with 2 d of clears and can add dulcolax 20 mg next time Above findings were reviewed with the patient and relevant handouts were provided if indicated.
[2022-10-31 08:51] VITALS: BP 101/48; PULSE 67; RESP 16; TEMP 36.5; O2SAT 97
[2022-10-31 09:06] VITALS: BP 118/55; PULSE 61; RESP 16; TEMP 36.3; O2SAT 97
[2022-10-31 09:14] VITALS: BP 118/55; PULSE 62; RESP 16; O2SAT 98
== END 2022-10-31 09:46 | disposition home or self-care (01) ==
PROVIDERS: PCP Nurse Practitioner Family; Visit Provider Internal Medicine Gastroenterology
PROC: 0DJD8ZZ Inspection of Lower Intestinal Tract, Via Natural or Artificial Opening Endoscopic (ICD-10-PCS; CPT 45378; principal; 2022-10-31 08:30)
DX: Z12.11 Encounter for screening for malignant neoplasm of colon (principal); Z86.010 Personal history of colon polyps; K62.1 Rectal polyp; K64.0 First degree hemorrhoids; K21.9 Gastro-esophageal reflux disease without esophagitis; G89.4 Chronic pain syndrome; E78.00 Pure hypercholesterolemia, unspecified; I47.1 Supraventricular tachycardia; F41.8 Other specified anxiety disorders; G47.33 Obstructive sleep apnea (adult) (pediatric); M19.90 Unspecified osteoarthritis, unspecified site; Z79.899 Other long term (current) drug therapy; Z99.89 Dependence on other enabling machines and devices; F12.10 Cannabis abuse, uncomplicated
CPT/HCPCS: 45385; 88305

== ENCOUNTER 2022-12-06 08:10 | Day surgery (SDC) | payer MEDICARE, SELFPAY ==
[2022-12-06 09:01] VITALS: BMI 29.5; BMI 33.0
--- NOTE | 2022-12-06 09:43 | HO.ANESEVENT ---
Anesthesia Event Note Date of Service: 12/17/22 Time Spent With Patient Time: Total time managing care of this patient today ____ minutes.
--- NOTE | 2022-12-06 09:43 | HO.ANESPROP2 ---
HPI - Anesthesia Eval Consult details Narrative: for colon screen [facility] Active Problems Active Problems: All Active Problems (Updated 11/26/22 @ 09:18 by Willie Parson MD) Low back pain (Acute) GERD (gastroesophageal reflux disease) (Acute) Sinus infection (Acute) Smoker (Acute) Anxiety (Acute) Depression, major, in partial remission (Acute) Acute bronchitis (Acute) Seasonal allergies (Acute) Slurred speech (Acute) Facial droop (Acute) Dupuytren's contracture of left hand (Acute) Dupuytren's disease of both palm and finger with contracture (Acute) Dupuytren's disease of palm of right hand (Acute) Dyslipidemia (Acute) Screen for colon cancer (Acute) Postmenopausal (Acute) Upper respiratory tract infection (Acute) Numbness of tongue (Acute) History of colon polyps (Acute) Knee pain (Acute) Depression with anxiety (Acute) Chronic pain syndrome (Acute) Sacroiliitis (Acute) Past Medical History Medical History Arthritis Chronic pain syndrome Depression with anxiety Elevated cholesterol GERD (gastroesophageal reflux disease) Sacroiliitis Sleep apnea SVT (supraventricular tachycardia) Swelling of knee joint, left Family History Family history of problems with anesthesia: No Surgical History Surgical History H/O colonoscopy History of cardiac radiofrequency ablation (RFA) Hx of hand surgery Hx of rotator cuff surgery History of Problems with Anesthesia: No Social History Social History Household Members Other:: daughter Housing: House Are you a primary care trainer to a significant other at home: No Do you presently have visiting nurse or other home services: No Patient Tobacco Use Status: Current everyday Tobacco user Tobacco use type: Cigarette Cigarettes Per Day: 8 Years Smoked: 40 e-Cigarette/Vaping Use: Never Used Second Hand Smoke Exposure: No Have you been hit, kicked, punched, or otherwise hurt by someone within the past year? If so, by whom?: No Are you DNR?: No Advance Directives: No Advance Directives Information Provided: Yes Recently lost weight without trying: No Eating poorly because of decreased appetite: No Nutrition Risks: No Nutritional Risk Patient : No service: No Current occupational status: retired Current occupation: works part [employer] Current occupational exposures/hazards: No Cognitive needs: No Hearing needs: No Vision needs: Yes Meds Allergies Allergy/AdvReac Type Severity Reaction Status Date / Time No Known Allergies Allergy Verified 11/26/22 09:17 [No Known Allergies*] Active Medications: Current Medications Lactated Ringer's (Lr) 1,000 mls @ 100 mls/hr IVCONT .Q10H ASHOK Last Admin: 12/06/22 09:10 Dose: 100 mls/hr Home Medications Medication Instructions Recorded Confirmed Last Taken Type bupropion HCl 300 mg 24 hr tablet, 300 mg PO DAILY 04/07/20 11/21/22 06/07/22 06:30 History extended release duloxetine 60 mg capsule,delayed 60 mg PO QAM 04/07/20 11/21/22 06/07/22 06:30 History release lorazepam 1 mg tablet 0.5 mg PO BID PRN Anxiety 04/07/20 11/21/22 Unknown History duloxetine 30 mg capsule,delayed 30 mg PO QAM 06/14/21 11/21/22 06/07/22 06:30 History release Exam Exam Date and Time: December 06, 2022 0943 Height,Weight and Vital Signs: Height 5 ft 4 in Weight 78.018 kg Airway Mallampati Class: II TM Dist: >3cm Neck ROM: Full Heart: rrr Lungs: cta Assessment and Plan Assessment Anesthesia Assessment: Anesthesia Plan Discussed, Smoking Cess. Discussed and Chart Reviewed Final Anesthetic Review Family History of Problems with Anesthesia: No History of Problems with Anesthesia: No NPO: Yes ASA Class: II Final Preanesthetic Review: No Changes in Pt Med Stat, Meds/Allgs Chart Reviewed, Consent Obtained/Reviewed and Anes Risks/Benef Reviewed Patient Risk: Low Procedure Risk: Low Anesthetic Plan Anesthetic Plan: MAC: (smoked today) and Agree w/ Assess. and Plan Disposition: Standard PACU
--- NOTE | 2022-12-06 10:12 | MHC.SHP ---
Pre-Procedural Eval Section A Date of Service: 12/06/22 Section B Chief Complaint: Personal history of colonic polyps Relevant Family History (Specify if Yes): No Relevant Social History: Tobacco Use Present Medications: see Short Stay Collaborative assessment Medical History: Significant History (Arthritis Chronic pain syndrome Depression with anxiety Elevated cholesterol GERD (gastroesophageal reflux disease) Sacroiliitis Sleep apnea SVT (supraventricular tachycardia) Swelling of knee joint, left) History of Previous Operations: Relevant previous surgery/procedure and date(s) (H/O colonoscopy History of cardiac radiofrequency ablation (RFA) Hx of hand surgery Hx of rotator cuff surgery) Allergies: Allergies Allergy/AdvReac Type Severity Reaction Status Date / Time No Known Allergies Allergy Verified 11/26/22 09:17 [No Known Allergies*] Review of Systems Sugical H&P ROS: Negative: Constitution, Cardiovascular, Respiratory, Neurological, Psychiatric, Hem-Onc, Allergic/Immunologic, Gastrointestinal, Genitourinary, Musculoskeletal, Integumentary, Endocrine and Eyes/Ears/Nose/Throat Exam Surgical H&P Exam: Normal: HEENT, Normal: Heart, Normal: Lungs, Normal: Extremities, Normal: Abdomen, Normal: Skin and Normal: Neurological Plan Diagnosis/Plan: Unchanged I have reviewed the history and physical and performed a pertinent physical examination on my patient. No changes have occurred unless specified. Time Spent With Patient Time: Total time managing care of this patient today ____ minutes.
--- NOTE | 2022-12-06 10:13 | W.PM.OPN ---
Operative Note Operative Note Date of Service: 12/06/22 Narrative: Operative Information Procedure Description: Colonoscopy Indication: screening, prior colonoscopy with poor prep of right side Anesthesia: MAC COLONOSCOPY Instrument: Olympus variable stiffness pediatric scope 190L Colonoscopy Monitoring: Vital signs and clinical assessment, continuous EKG monitoring, Pulse oximetry, Carbon Dioxide monitoring and blood pressure monitoring were done throughout the procedure. Colon withdrawal time was 20 minutes. Procedure: The patient was placed in the left lateral decubitis position and pre-procedure medications were administered. After a digital rectal examination of the ano-rectum, the video colonoscope was inserted into the rectum and advanced through the colon to the cecum/TI. The colonoscope was slowly withdrawn in a retrograde panoramic fashion and the colon mucosa was carefully examined including a retroflexed view of the rectum. Findings and interventions are described below. Procedure Difficulty: moderate Findings: Terminal Ileum- ulceration and erythema with erosions around the ileocecal valve and the cecal folds, bx taken --also taken from the ileum Cecum: x 2 sessile polyps 5-7 mm removed with cold snare, another x 2 sessile polyps 3-4 mm removed with cold forceps Ascending Colon: mild patchy erythema, few diverticula seen Transverse Colon -normal Descending Colon:normal Sigmoid Colon: mild diverticulosis noted Rectum: Retroflexion with small internal hemorrhoids, grade I Anorectum - normal Colon preparation: [place] Bowel Preparation Scale Right colon; 2 Transverse colon: 2 Left colon; 3 (0 = Unprepared colon segment with mucosa not seen due to solid stool that cannot be cleared. 1 = Portion of mucosa of the colon segment seen, but other areas of the colon segment not well seen due to staining, residual stool and/or opaque liquid. 2 = Minor amount of residual staining, small fragments of stool and/or opaque liquid, but mucosa of colon segment seen well. 3 = Entire mucosa of colon segment seen well with no residual staining, small fragments of stool or opaque liquid) Impression and Post Procedure Diagnosis: colitis polyps internal hemorrhoids diverticular disease Plan: High fiber diet leaflet Avoid straining at stool, epsom salts and sitz bath, anusol supps or cream Repeat Colonoscopy in 1 year or earlier if clinically indicated depending on the bx might need to consider CTe and work up for crohns, smoking cessation recommended Above findings were reviewed with the patient and relevant handouts were provided if indicated.
[2022-12-06 11:02] VITALS: BP 99/54; PULSE 72; RESP 16; TEMP 36.1; O2SAT 97
[2022-12-06 11:17] VITALS: BP 109/60; PULSE 64; RESP 14; O2SAT 98
[2022-12-06 11:30] VITALS: BP 120/60; PULSE 65; RESP 14; TEMP 36.2; O2SAT 98
== END 2022-12-06 12:01 | disposition home or self-care (01) ==
PROVIDERS: PCP Nurse Practitioner Family; Visit Provider Internal Medicine Gastroenterology
PROC: 0DJD8ZZ Inspection of Lower Intestinal Tract, Via Natural or Artificial Opening Endoscopic (ICD-10-PCS; CPT 45378; principal; 2022-12-06 10:10)
DX: Z12.11 Encounter for screening for malignant neoplasm of colon (principal); D12.0 Benign neoplasm of cecum; K52.9 Noninfective gastroenteritis and colitis, unspecified; K57.30 Diverticulosis of large intestine without perforation or abscess without bleeding; K63.3 Ulcer of intestine; K64.0 First degree hemorrhoids; Z86.010 Personal history of colon polyps
CPT/HCPCS: 45385; 45380; 88305; 99499

== ENCOUNTER 2022-12-11 05:59 | Outpatient (REF) | payer MEDICARE, SELFPAY ==
[2022-12-11 06:20] LABS: MANUAL DIFF FLAG NO
[2022-12-11 07:16] LABS: Basophils Absolute Auto 0.1 X10*3/uL (0.0-0.2); Basophils Percent Auto 1.1 % (0-2); Eosinophils Absolute Auto 0.2 X10*3/uL (0.0-0.4); Eosinophils Percent Auto 2.8 % (0-4); Hematocrit 42.4 % (37.0-47.0); Hemoglobin 13.9 g/dl (12.0-16.0); Imm Gran Abs Auto 0.03 X10*3/uL (0.00-0.03); Imm Gran Pct Auto 0.4 % (0.0-0.4); Lymphocytes Absolute Auto 2.2 X10*3/uL (1.2-4.9); Lymphocytes Percent Auto 26.2 % (20-40); Mean Corpuscular HGB Conc 32.8 g/dl (31.0-35.0); Mean Corpuscular Hemoglobin 30.8 pg (27.0-33.0); Mean Corpuscular Volume 93.8 fL (80.0-98.0); Mean Platelet Volume 10.4 fL (9.4-12.3); Monocytes Absolute Auto 0.6 X10*3/uL (0.1-1.2); Monocytes Percent Auto 6.7 % (2-11); Neutrophils Absolute Auto 5.3 x10*3/uL (2.0-8.3); Neutrophils Percent Auto 62.8 % (45-73); Platelet Count 297 X10*3/uL (160-400); Red Blood Count 4.52 X10*6/uL (4.20-5.50); Red Cell Distribution Width 12.3 % (11.0-16.0); White Blood Count 8.4 X10*3/uL (4.8-10.8)
[2022-12-11 08:17] LABS: Alanine Aminotransferase 12 U/L (0-31); Alkaline Phosphatase 88 U/L (39-117); Anion Gap 13 (12-20); Aspartate Amino Transferase 15 U/L (5-31); Bilirubin Total 0.4 mg/dL (0.0-1.0); Blood Urea Nitrogen 15 mg/dL (9-16); Calcium 9.9 mg/dL (8.4-10.2); Carbon Dioxide 25 mmol/L (22-29); Chloride 108 mmol/L (96-108); Estimated Glomerular Filt Rate > 60; Glucose Fasting 92 mg/dL (60-99); Potassium 4.7 mmol/L (3.3-5.1); Sodium 141 mmol/L (135-145); Total Protein 6.8 g/dL (6.5-8.0)
[2022-12-11 08:33] LABS: TSH reflex Free T4 5.42 uIU/mL (0.32-4.0)
[2022-12-11 08:38] LABS: Folate 14.2 ng/mL (> or = 4.0); Vitamin B12 366 pg/mL (200-900)
[2022-12-11 09:09] LABS: Free T4 (Free Thyroxine) 0.89 ng/dL (0.71-1.85)
[2022-12-13 21:28] LABS: Lyme Abs Screen <0.90 index
[2022-12-16 14:23] LABS: Vitamin B6 15.5 ng/mL (2.1-21.7)
== END 2022-12-11 06:00 | disposition home or self-care (01) ==
LOC: HO.LAB 05:59
PROVIDERS: PCP Nurse Practitioner Family; Visit Provider Nurse Practitioner Family
DX: R20.0 Anesthesia of skin (principal)
CPT/HCPCS: 36415; 80053; 82607; 82746; 84207; 84439; 84443; 85025; 86617; 86618

== ENCOUNTER 2022-12-20 08:28 | Outpatient (AMB) | payer MEDICARE, SELFPAY ==
--- NOTE | 2022-12-20 08:30 | MHC.OFFVIS ---
Intake Vital Signs 12/20/22 08:36 Height 5 ft 4 in Weight 194 lb 0.108 oz BMI 33.3 Intake Visit Reasons: S/p colon-Correa Intake Note: Nereida presents in office as a est.patient for a post-op for colo PT CC: pt reports having no concerns , just results pt denies any other GI Issues Fashion Consultant Selling Required: No Accompanied by: Self / Same As Patient Allergies No Known Allergies [No Known Allergies*] Allergy (Verified 12/20/22 08:33) HPI HPI Comments History of Present Illness Details A 67 y/o female colonoscopy- 10/2022- inadequate prep- hyperplastic polp Returned for repeat 12/2022- polypectomy- Reviewed procedure report and pathology. 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 N/V/D abdominal pain- PFSH Medical History Arthritis Chronic pain syndrome Depression with anxiety Elevated cholesterol GERD (gastroesophageal reflux disease) Sacroiliitis Sleep apnea SVT (supraventricular tachycardia) Swelling of knee joint, left Surgical History H/O colonoscopy History of cardiac radiofrequency ablation (RFA) Hx of hand surgery Hx of rotator cuff surgery Social History Household Members Other:: daughter Housing: House Are you a primary complex care nurse to a significant other at home: No Do you presently have visiting nurse or other home services: No Patient Tobacco Use Status: Current everyday Tobacco user Tobacco use type: Cigarette Cigarettes Per Day: 8 Years Smoked: 40 e-Cigarette/Vaping Use: Never Used Second Hand Smoke Exposure: No service: No Current occupational status: retired Current occupation: works part [employer] Current occupational exposures/hazards: No Cognitive needs: No Hearing needs: No Vision needs: Yes Review of Systems Const All systems reviewed & are unremarkable except as noted in HPI and below Card Denies chest pain and Denies dyspnea Resp Denies dyspnea GI Denies abdominal pain, Denies hematochezia, Denies change in bowel habits, Denies heartburn, Denies nausea and Denies vomiting Physical Exam Vital Signs: BMI result Body Mass Index 33.3 Const General: cooperative, healthy appearing, comfortable and well groomed Orientation/consciousness: patient oriented x3 Limitations: no limitations Neuro General: patient oriented x3 Extrem General: Yes full ROM Psych Appearance: grossly normal and well kempt Mental Status: mental status grossly normal Speech and movement: Normal speech and movement present and Clear speech present Affect: normal affect Attitude: cooperative Thought process: Normal thought process present Thought content: Normal thought content present Results Reviewed Results Reviewed: mpression and Post Procedure Diagnosis: colitis polyps internal hemorrhoids diverticular disease Plan: High fiber diet leaflet Avoid straining at stool, epsom salts and sitz bath, anusol supps or cream Repeat Colonoscopy in 1 year or earlier if clinically indicated depending on the bx might need to consider CTe and work up for crohns, smoking cessation recommended Above findings were reviewed with the patient and relevant handouts were provided if indicated. Name:?Nereida Goodman Age/Sex: 67/F Attending: Paramjit Correa MD : 1955 Submitted by: Paramjit Correa MD Copies to: Buddy Shaw [facility] MR #: [id number] ? Status: [facility] Collected: 12/06/22 Location: [facility] Received: 12/06/22 Diagnosis A.? Cecum, polypectomy: - Tubular adenoma; negative for high-grade dysplasia or carcinoma. - Sessile serrated lesion/polyp; negative for cytologic dysplasia. B.? Terminal ileum, biopsy:? Small intestinal mucosa within normal limits. C.? Colon, right ulcer, biopsy:? Colonic mucosa with mild surface hyperplastic changes and regenerative changes; fragments of ulcer bed. Clinical History Pre-Op Dx:? Screening Post-Op Dx: Screening, hemorrhoids, diverticulosis, colon polyps, colitis Microscopic Description 10/31/22 Impression and Post Procedure Diagnosis: internal hemorrhoids polyps poor prep, procedure incomplete Plan: High fiber diet leaflet Avoid straining at stool, epsom salts and sitz bath, anusol supps or cream Repeat Colonoscopy in 2-3 months with 2 d of clears and can add dulcolax 20 mg next time Name:?Nereida Goodman Age/Sex: 67/F Attending: Paramjit Correa MD : 1955 Submitted by: Paramjit Correa MD Copies to: MaribellolaisaelLuis E [facility] MR #: [id number] ? Status: [facility] Collected: 10/31/22 Location: [facility] Received: 10/31/22 Diagnosis Rectum, polypectomy:? Hyperplastic mucosal polyp. Clinical History Pre-Op Dx:? Personal history of colonic polyps Post-Op Dx: Colon polyps (1 unretrieved rectal polyp), hemorrhoids, poor prep Assessment & Plan Assessment & Plan (1) Sessile serrated polyp of colon: Code(s): D12.6 - Benign neoplasm of colon, unspecified (2) Tubular adenoma: Code(s): D36.9 - Benign neoplasm, unspecified site (3) Diverticulosis of colon: Code(s): K57.30 - Diverticulosis of large intestine without perforation or abscess without bleeding Plan Repeat colonoscopy 1YEAR-with Dr. Correa, andrew prep due to hx poor prep Patient Instructions: Diverticulosis/ diverticulitis- ER protocol Repeat asymptomatic colonoscopy 1 year, Encouraged to call with questions or concerns Appreciate the opportunity assist in the care this patient Coding Level of Care Code New Pt Level 3 (98006) Diagnoses Sessile serrated polyp of colon D12.6 Tubular adenoma D36.9 Diverticulosis of colon K57.30 Time Spent (min) 30
[2022-12-20 08:36] VITALS: BMI 33.3
== END 2022-12-20 09:16 | disposition home or self-care (01) ==
PROVIDERS: PCP Nurse Practitioner Family; Visit Provider Physician Assistant
DX: D12.6 Benign neoplasm of colon, unspecified (principal); D36.9 Benign neoplasm, unspecified site; K57.30 Diverticulosis of large intestine without perforation or abscess without bleeding
CPT/HCPCS: 99213

== ENCOUNTER → 2022-12-20 08:28 | Outpatient (BNVA) | payer MEDICARE, SELFPAY | PROVIDERS: PCP Nurse Practitioner Family; Visit Provider Physician Assistant | DX: D12.0 Benign neoplasm of cecum (principal); K57.30 Diverticulosis of large intestine without perforation or abscess without bleeding; Z98.890 Other specified postprocedural states | CPT/HCPCS: 99212 ==

== ENCOUNTER 2022-12-27 10:05 | Outpatient (AMB) | payer MEDICARE, SELFPAY ==
--- NOTE | 2022-12-27 10:43 | MHC.PC.OV ---
Vital Signs 12/27/22 10:45 Height 5 ft 4 in Weight 196 lb BMI 33.6 BP 140/86 H Blood Pressure Location Lt brachial Position Sitting Pulse 79 Pulse Source Pulse Oximeter Pulse Oximetry (%) 96 Oxygen Delivery Method Room Air Intake Visit Reasons: 6 Month follow up ( meds ) Allergies No Known Allergies [No Known Allergies*] Allergy (Verified 12/27/22 12:59) Medication List - Last Reconciled 12/27/22 by Buddy Shaw, [employer]- albuterol sulfate 90 mcg/actuation (Ventolin HFA) 2 puffs inhalation Q4-6H PRN atorvastatin 20 mg PO DAILY 90 days bupropion HCl 300 mg PO DAILY duloxetine 30 mg PO QAM duloxetine 60 mg PO QAM lorazepam 0.5 mg PO BID PRN omeprazole 40 mg PO DAILY 90 days Tobacco use date assessed: 12/27/22 Fall risk assessment: No Falls in past year Last assessed Fall Risk: 12/27/22 Dental Screening Dental Screen Date: 12/27/22 Did you have a dental visit in the last 12 months?: Yes Did you have a dental problem in the last 6 months where you did not have access to dental care?: No Was dental information given to patient?: Patient has dentist HPI 6 Month follow up ( meds ) HPI Details Pt reports incomplete bladder emptying. Will refer to urology (has seen urology many years ago). Denies fever, chills, and dizziness. Pt's tsh was off. She does report increased fatigue. Denies any hair loss, but has had constipation her whole life. [facility] Medical History Arthritis Chronic pain syndrome Depression with anxiety Elevated cholesterol GERD (gastroesophageal reflux disease) Sacroiliitis Sleep apnea SVT (supraventricular tachycardia) Swelling of knee joint, left Surgical History H/O colonoscopy History of cardiac radiofrequency ablation (RFA) Hx of hand surgery Hx of rotator cuff surgery Family History (Updated 12/27/22 @ 10:48 by Latoya Mondragon CMA) Father Mental health disorder Paternal Grandfather Mental health disorder Daughter Mental health disorder Social History Household Members Other:: daughter Housing: House Are you a primary college and career counselor to a significant other at home: No Do you presently have visiting nurse or other home services: No Patient Tobacco Use Status: Current everyday Tobacco user Tobacco use type: Cigarette Cigarettes Per Day: 2 Years Smoked: 40 e-Cigarette/Vaping Use: Never Used Second Hand Smoke Exposure: No service: No Current occupational status: retired Current occupation: works part [employer] Current occupational exposures/hazards: No Cognitive needs: No Hearing needs: No Vision needs: Yes Questionnaire Thrive Questionnaire Date Thrive assessed: 06/14/21 GIBRAN-7 AMB Questionnaire GIBRAN-7 Date GIBRAN - 7 assessed: 06/14/21 Source: Developed by Drs. Callum Valdivia, Sarah Roberts, Jaime Harrison and colleagues, with an educational sigrid from [employer]. Review of Systems Const Reports as per HPI Physical exam (Primary Care) Vital Signs: Last Vital Signs Pulse 79 12/27/22 10:45 BP 140/86 H 12/27/22 10:45 Pulse Ox 96 12/27/22 10:45 Oxygen Delivery Method Room Air 12/27/22 10:45 BMI result Body Mass Index 33.6 Tobacco/Smoking Status: Tobacco use Status Tobacco use date assessed 12/27/22 12/27/22 10:50 Patient Tobacco Use Status Current everyday Tobacco 12/27/22 10:44 Tobacco use type Cigarette 12/27/22 10:44 e-Cigarette/Vaping Use Never Used 12/27/22 10:44 Thrive Assessment: Date of Thrive Assessment Date Thrive assessed 06/14/21 12/27/22 10:44 Const General: cooperative Nutritional Appearance: obese Orientation/consciousness: patient oriented x3 Resp Effort & Inspection: normal respiratory effort Auscultation: clear to auscultation bilaterally Cardio Rate: regular rate Rhythm: regular rhythm Heart sounds: S1 normal heart sound present and S2 normal heart sound present Neuro General: patient oriented x3 Psych Appearance: grossly normal Mental Status: mental status grossly normal Speech and movement: Normal speech and movement present Affect: normal affect Attitude: cooperative Thought process: Normal thought process present Thought content: Normal thought content present Insight: Good insight present (Psych) Judgement: Good judgement present (Psych) Assessment and Plan Assessment & Plan (1) Incomplete bladder emptying: Code(s): R33.9 - Retention of urine, unspecified Plan: Referred to urology (2) Elevated TSH: Code(s): R79.89 - Other specified abnormal findings of blood chemistry Plan The patient agreed to the use of a biomedical electronics technician for this encounter. Scribed for RENNY Mcclure by Radha Zabala biomedical electronics technician, on 12/27/2022 at 11:20 EST. Orders: Referrals Urology Referral R33.9 - Retention of urine, unspecified Coding Level of Care Code Est Pt Level 3 (60523) Diagnoses Incomplete bladder emptying R33.9 Elevated TSH R79.89
[2022-12-27 10:45] VITALS: BP 140/86; PULSE 79; O2SAT 96; BMI 33.6
== END 2022-12-27 11:27 | disposition home or self-care (01) ==
PROVIDERS: Visit Provider Nurse Practitioner Family
DX: R33.9 Retention of urine, unspecified (principal); R79.89 Other specified abnormal findings of blood chemistry
CPT/HCPCS: 99213

== ENCOUNTER 2022-12-27 11:28 | Outpatient (REF) | payer MEDICARE, SELFPAY ==
[2022-12-29 14:39] LABS: Thyroid Peroxidase Antibodies 1 IU/mL (<9)
== END 2022-12-27 11:29 | disposition home or self-care (01) ==
LOC: HO.HMGCLDS 11:28
PROVIDERS: PCP Nurse Practitioner Family; Visit Provider Nurse Practitioner Family
DX: R94.6 Abnormal results of thyroid function studies (principal)
CPT/HCPCS: 36415; 84443; 86376

== ENCOUNTER 2022-12-28 07:09 | Outpatient (REF) | payer MEDICARE, SELFPAY ==
[2022-12-28 07:27] LABS: MANUAL DIFF FLAG NO
[2022-12-28 07:34] LABS: Basophils Absolute Auto 0.1 X10*3/uL (0.0-0.2); Eosinophils Absolute Auto 0.3 X10*3/uL (0.0-0.4); Hematocrit 44.8 % (37.0-47.0); Hemoglobin 14.5 g/dl (12.0-16.0); Imm Gran Abs Auto 0.03 X10*3/uL (0.00-0.03); Imm Gran Pct Auto 0.3 % (0.0-0.4); Lymphocytes Absolute Auto 2.4 X10*3/uL (1.2-4.9); Lymphocytes Percent Auto 25.7 % (20-40); Mean Corpuscular HGB Conc 32.4 g/dl (31.0-35.0); Mean Corpuscular Volume 95.9 fL (80.0-98.0); Mean Platelet Volume 9.6 fL (9.4-12.3); Monocytes Absolute Auto 0.6 X10*3/uL (0.1-1.2); Monocytes Percent Auto 6.3 % (2-11); Neutrophils Absolute Auto 5.9 x10*3/uL (2.0-8.3); Neutrophils Percent Auto 63.7 % (45-73); Platelet Count 257 X10*3/uL (160-400); Red Blood Count 4.67 X10*6/uL (4.20-5.50); Red Cell Distribution Width 12.9 % (11.0-16.0); White Blood Count 9.2 X10*3/uL (4.8-10.8)
[2022-12-28 08:23] LABS: Alanine Aminotransferase 14 U/L (0-31); Albumin Level 4.1 g/dL (3.5-5.0); Alkaline Phosphatase 79 U/L (39-117); Anion Gap 14 (12-20); Aspartate Amino Transferase 15 U/L (5-31); Bilirubin Total 0.5 mg/dL (0.0-1.0); Blood Urea Nitrogen 11 mg/dL (9-16); Calcium 9.3 mg/dL (8.4-10.2); Carbon Dioxide 26 mmol/L (22-29); Chloride 105 mmol/L (96-108); Cholesterol 170 mg/dL; Estimated Glomerular Filt Rate > 60; Glucose Fasting 109 mg/dL (60-99); HDL Cholesterol 63 mg/dL; LDL Cholesterol Calculated 91 mg/dl; Potassium 4.9 mmol/L (3.3-5.1); Sodium 140 mmol/L (135-145); Triglycerides 83 mg/dL
[2022-12-28 08:26] LABS: Appearance Urine Clear; Color Urine Yellow; Glucose Urine UA Negative (Negative); Leukocyte Esterase Urine Negative (Negative); Nitrite Urine Negative (Negative); PH 6.5 (5.0-9.0); Specific Gravity - Urine 1.015 (1.005-1.025); Urine Blood Negative (Negative); Urine Ketones Negative (Negative); Urine Protein Negative (Neg-Trace)
[2022-12-28 08:41] LABS: TSH reflex Free T4 3.82 uIU/mL (0.32-4.0)
== END 2022-12-28 07:10 | disposition home or self-care (01) ==
LOC: HO.LAB 07:09
PROVIDERS: PCP Nurse Practitioner Family; Visit Provider Nurse Practitioner Family
DX: E78.5 Hyperlipidemia, unspecified (principal)
CPT/HCPCS: 36415; 80053; 80061; 81003; 84443; 85025

== ENCOUNTER 2023-01-18 13:07 | Outpatient (AMB) | payer MEDICARE, SELFPAY ==
[2023-01-18 13:08] VITALS: BP 110/68; PULSE 66; TEMP 36.1; O2SAT 96; BMI 33.8
--- NOTE | 2023-01-18 13:08 | AM.OFFWIN_ITS ---
Intake Vital Signs 01/18/23 13:08 Height 5 ft 4 in Weight 197 lb 2 oz BMI 33.8 BP 110/68 Blood Pressure Location Lt brachial Position Sitting Pulse 66 Pulse Source Pulse Oximeter Temp 96.9 F Temp Source Temporal Artery Scan Pulse Oximetry (%) 96 Oxygen Delivery Method Room Air Intake Visit Reasons: EP Ear ache/?Sinus Infection Intake Note: Pt is here c/o possible sinus infection. Pt also states she has bilateral ear pain. Patient Tobacco Use Status: Current everyday Tobacco user Allergies No Known Allergies [No Known Allergies*] Allergy (Verified 01/18/23 13:11) Do you need a note to return to daycare/school/sports/work: No HPI HPI Comments History of Present Illness Details This is a 67-year-old female who presents to the office today for sick visit. Patient complaining of bilateral otalgia, sinus pain/pressure, postnasal drip, sore throat, and congestion/rhinorrhea x1 week. Patient tried utilizing Neti pot without relief. She denies any fevers or chills. She denies any known sick contacts. She is otherwise feeling well without chest pain or shortness of breath or abdominal pain or nausea/vomiting/diarrhea. [facility] Medical History Arthritis Chronic pain syndrome Depression with anxiety Elevated cholesterol GERD (gastroesophageal reflux disease) Sacroiliitis Sleep apnea SVT (supraventricular tachycardia) Swelling of knee joint, left Surgical History H/O colonoscopy History of cardiac radiofrequency ablation (RFA) Hx of hand surgery Hx of rotator cuff surgery Family History (Updated 12/27/22 @ 10:48 by Latoya Mondragon CMA) Father Mental health disorder Paternal Grandfather Mental health disorder Daughter Mental health disorder Social History Household Members Other:: daughter Housing: House Are you a primary intensive care specialist to a significant other at home: No Do you presently have visiting nurse or other home services: No Patient Tobacco Use Status: Current everyday Tobacco user Tobacco use type: Cigarette Cigarettes Per Day: 2 Years Smoked: 40 e-Cigarette/Vaping Use: Never Used Second Hand Smoke Exposure: No service: No Current occupational status: retired Current occupation: works part [employer] Current occupational exposures/hazards: No Cognitive needs: No Hearing needs: No Vision needs: Yes Review of Systems Const All systems reviewed & are unremarkable except as noted in HPI and below Reports no additional complaints Eyes Reports no additional complaints ENT Reports no additional complaints Card Reports no additional complaints Resp Reports no additional complaints GI Reports no additional complaints Reports no additional complaints Musc Reports no additional complaints Skin/Breast Reports system reviewed and no additional complaints, except as documented Neuro Reports no additional complaints Psych Reports no additional complaints Endo Reports no additional complaints Claudio/Lymph Reports no additional complaints Aller/Immun Reports no additional complaints Physical Exam Vital Signs: Last Vital Signs Temp 96.9 F 01/18/23 13:08 Pulse 66 01/18/23 13:08 BP 110/68 01/18/23 13:08 Pulse Ox 96 01/18/23 13:08 Oxygen Delivery Method Room Air 01/18/23 13:08 BMI result Body Mass Index 33.8 Const General: cooperative, healthy appearing, no acute distress and well developed Orientation/consciousness: patient oriented x3 HEENT Head: Yes normal to inspection Ears: hearing grossly normal bilaterally and TM abnormal bulging bilateral and erythematous bilateral General nose exam: Normal external nose present Face and sinus: Yes normal facial exam Mouth: Normal oral and palatal mucosa present Throat: Yes posterior oropharynx abnormal (Erythematous with postnasal drip) Eyes General: appearance normal, both eyes and all related structures Pupils: Equal, round and reactive pupils present EOM: EOMs intact bilaterally Resp Effort & Inspection: normal respiratory effort and no respiratory distress Auscultation: clear to auscultation bilaterally Cardio Rate: regular rate Rhythm: regular rhythm Heart sounds: no gallops, no murmurs and no rubs Peripheral pulses: Peripheral pulses 2+ throughout GI Inspection: No distended Palpation (GI): Soft to palpation and nontender Auscultation: normal bowel sounds Skin General skin exam: no rashes or lesions noted Neuro General: patient oriented x3 Cranial nerves: Yes CN's II-XII intact bilaterally and Yes Equal, round and reactive pupils present Gait exam (Neuro): Normal gait present Motor exam (neuro): 5/5 motor strength present throughout Extrem General: Yes normal to inspection, Yes full ROM and Yes no clubbing, cyanosis or edema Psych Appearance: grossly normal Mental Status: mental status grossly normal Assessment & Plan Assessment & Plan (1) Acute rhinosinusitis: Code(s): J01.90 - Acute sinusitis, unspecified Plan: Patient presenting with signs and symptoms most consistent with acute bacterial rhinosinusitis. Patient sent home on p.o. amoxicillin clavulanate 875-125 mg twice daily x7 days. Recommended symptomatic management including rest, increased fluids, advil/tylenol for pain/fever, and over the counter throat lozenges/decongestants. Patient advised to follow up here or go to the emergency room for worsening/persistent symptoms. Patient verbalizes her understanding and she is in agreement with the plan. Medications: New amoxicillin-pot clavulanate 875-125 mg 1 tab PO BID 14 tabs 0RF Coding Level of Care Code Est Pt Level 3 (96626) Diagnoses Acute rhinosinusitis J01.90
== END 2023-01-18 14:28 | disposition home or self-care (01) ==
PROVIDERS: PCP Nurse Practitioner Family; Visit Provider Physician Assistant Medical
DX: J01.90 Acute sinusitis, unspecified (principal)
CPT/HCPCS: 99213

== ENCOUNTER 2023-01-25 15:21 | Outpatient (REF) | payer MEDICARE, SELFPAY ==
[2023-01-25 17:11] LABS: TSH reflex Free T4 4.23 uIU/mL (0.32-4.0)
[2023-01-25 18:43] LABS: Free T4 (Free Thyroxine) 0.82 ng/dL (0.71-1.85)
== END 2023-01-25 15:22 | disposition home or self-care (01) ==
LOC: HO.LAB 15:21
PROVIDERS: PCP Nurse Practitioner Family; Visit Provider Nurse Practitioner Family
DX: R94.6 Abnormal results of thyroid function studies (principal)
CPT/HCPCS: 36415; 84439; 84443

== ENCOUNTER 2023-01-26 09:06 | Outpatient (AMB) | payer MEDICARE, SELFPAY ==
--- NOTE | 2023-01-26 09:22 | AM.OFFWIN_ITS ---
Intake Vital Signs 01/26/23 09:25 BP 120/66 Blood Pressure Location Lt brachial Position Sitting Pulse 77 Pulse Source Pulse Oximeter Pulse Oximetry (%) 96 Oxygen Delivery Method Room Air Intake Visit Reasons: Rt ear and jaw pain Intake Note: Patient is here with ear infection and pain behind ear into jaw, post nasal drip cough, and headache. She states she finished antibiotics on . Patient Tobacco Use Status: Current everyday Tobacco user Allergies No Known Allergies [No Known Allergies*] Allergy (Verified 01/26/23 09:23) Do you need a note to return to daycare/school/sports/work: No HPI HPI Comments History of Present Illness Details This is a 67-year-old female who who presents to the office today for sick visit. Patient complaining of persistent right-sided otalgia in the setting of recently treated sinus infection. She reports feeling run down and fatigued but denies any other systemic symptoms including fever/chills for nausea/vomiting. She does still report some mild sinus congestion and postnasal drip, but these have improved. Sent on cefuroxime 500 mg twice daily times 10 days given failure of Augmentin Patient advised to proceed directly to the emergency room if she develops postauricular swelling/erythema PFSH Medical History Arthritis Chronic pain syndrome Depression with anxiety Elevated cholesterol GERD (gastroesophageal reflux disease) Sacroiliitis Sleep apnea SVT (supraventricular tachycardia) Swelling of knee joint, left Surgical History H/O colonoscopy History of cardiac radiofrequency ablation (RFA) Hx of hand surgery Hx of rotator cuff surgery Family History (Updated 12/27/22 @ 10:48 by Latoya Mondragon CMA) Father Mental health disorder Paternal Grandfather Mental health disorder Daughter Mental health disorder Social History Household Members Other:: daughter Housing: House Are you a primary care transitions manager to a significant other at home: No Do you presently have visiting nurse or other home services: No Patient Tobacco Use Status: Current everyday Tobacco user Tobacco use type: Cigarette Cigarettes Per Day: 2 Years Smoked: 40 e-Cigarette/Vaping Use: Never Used Second Hand Smoke Exposure: No service: No Current occupational status: retired 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 Current occupational exposures/hazards: No Cognitive needs: No Hearing needs: No Vision needs: Yes Review of Systems Const All systems reviewed & are unremarkable except as noted in HPI and below Reports no additional complaints Eyes Reports no additional complaints ENT Reports no additional complaints Card Reports no additional complaints Resp Reports no additional complaints GI Reports no additional complaints Reports no additional complaints Musc Reports no additional complaints Skin/Breast Reports system reviewed and no additional complaints, except as documented Neuro Reports no additional complaints Psych Reports no additional complaints Endo Reports no additional complaints Claudio/Lymph Reports no additional complaints Aller/Immun Reports no additional complaints Physical Exam Vital Signs: Last Vital Signs Pulse 77 01/26/23 09:25 BP 120/66 01/26/23 09:25 Pulse Ox 96 01/26/23 09:25 Oxygen Delivery Method Room Air 01/26/23 09:25 Const General: cooperative, healthy appearing, no acute distress and well developed Orientation/consciousness: patient oriented x3 HEENT Other: No postauricular swelling, erythema, tenderness, or mass. Head: Yes normal to inspection Ears: hearing grossly normal bilaterally, normal mastoids bilaterally and TM a bnormal bulging on the right and erythematous on the right General nose exam: Normal external nose present Face and sinus: Yes normal facial exam Mouth: Normal oral and palatal mucosa present Eyes General: appearance normal, both eyes and all related structures Pupils: Equal, round and reactive pupils present EOM: EOMs intact bilaterally Resp Effort & Inspection: normal respiratory effort and no respiratory distress Auscultation: clear to auscultation bilaterally Cardio Rate: regular rate Rhythm: regular rhythm Heart sounds: no gallops, no murmurs and no rubs Peripheral pulses: Peripheral pulses 2+ throughout GI Inspection: No distended Palpation (GI): Soft to palpation and nontender Auscultation: normal bowel sounds Skin General skin exam: no rashes or lesions noted Neuro General: patient oriented x3 Cranial nerves: Yes CN's II-XII intact bilaterally and Yes Equal, round and reactive pupils present Gait exam (Neuro): Normal gait present Motor exam (neuro): 5/5 motor strength present throughout Extrem General: Yes normal to inspection, Yes full ROM and Yes no clubbing, cyanosis or edema Psych Appearance: grossly normal Mental Status: mental status grossly normal Assessment & Plan Assessment & Plan (1) Acute otitis media: Code(s): H66.90 - Otitis media, unspecified, unspecified ear Plan: Patient presents to the office today complaining of persistent right-sided otalgia in the setting of recently treated sinus infection. On physical examination, she has an erythematous and bulging tympanic membrane of the right ear. Patient's vital signs are stable, her physical exam is otherwise benign, and she is overall nontoxic appearing. History and physical most consistent with an acute otitis media of the right ear. Patient sent home on p.o. cefuroxime 250 mg twice daily times 10 days in the setting of amoxicillin- clavulanate failure. Patient advised to follow-up here or proceed directly to the emergency room if she were to develop postauricular swelling/erythema, otorrhea, fever/chills, or worsening symptoms. Medications: New cefuroxime axetil 500 mg PO BID 20 tabs 0RF Coding Level of Care Code Est Pt Level 3 (75028) Diagnoses Acute otitis media H66.90
[2023-01-26 09:25] VITALS: BP 120/66; PULSE 77; O2SAT 96
== END 2023-01-26 09:45 | disposition home or self-care (01) ==
PROVIDERS: PCP Nurse Practitioner Family; Visit Provider Physician Assistant Medical
DX: H66.90 Otitis media, unspecified, unspecified ear (principal)
CPT/HCPCS: 99213

== ENCOUNTER 2023-01-26 09:37 | Outpatient (REF) | payer MEDICARE, SELFPAY ==
[2023-01-26 11:46] LABS: Alanine Aminotransferase 13 U/L (0-31); Albumin Level 4.2 g/dL (3.5-5.0); Alkaline Phosphatase 89 U/L (39-117); Anion Gap 12 (12-20); Aspartate Amino Transferase 17 U/L (5-31); Bilirubin Total 0.4 mg/dL (0.0-1.0); Blood Urea Nitrogen 20 mg/dL (9-16); Calcium 9.5 mg/dL (8.4-10.2); Carbon Dioxide 23 mmol/L (22-29); Chloride 107 mmol/L (96-108); Estimated Glomerular Filt Rate > 60; Glucose Random 96 mg/dL (60-115); Potassium 4.1 mmol/L (3.3-5.1); Sodium 138 mmol/L (135-145); Total Protein 7.2 g/dL (6.5-8.0)
== END 2023-01-26 09:38 | disposition home or self-care (01) ==
LOC: HO.HMGCLDS 09:37
PROVIDERS: PCP Nurse Practitioner Family; Visit Provider Physician Assistant
DX: K58.9 Irritable bowel syndrome, unspecified (principal)
CPT/HCPCS: 36415; 80053

== ENCOUNTER 2023-01-28 | Outpatient (REF) | payer MEDICARE, SELFPAY | END 2023-01-28 00:01 | disposition home or self-care (01) | LOC: HO.LNP | PROVIDERS: Visit Provider Physician Assistant | DX: R19.7 Diarrhea, unspecified (principal) | CPT/HCPCS: 83993 ==

== ENCOUNTER 2023-02-12 08:11 | Outpatient (REF) | payer MEDICARE, SELFPAY ==
--- NOTE | ~2023-02-12 | CT_ITS ---
EXAMINATION: CT ENTEROGRAPHY ABDOMEN AND PELVIS WITH CONTRAST CLINICAL INFORMATION: Intestinal ulcer. COMPARISON: None available. TECHNIQUE: Study performed with oral VoLumen (1350 mL) and 480 mL of water to distend the abdomen. The patient was injected with 85 mL Omnipaque 350 intravenous contrast which was administered without adverse effect. Coronal and sagittal reformatted images were obtained at the technologist's workstation. This CT examination was performed using dose optimization techniques as appropriate, variously including the following: *Automated exposure control *Adjustment of mA and/or kV according to patient size (this includes techniques or standardized protocols for targeted exams where dose is matched to indication/reason for exam; i.e. extremities or head) *Use of iterative reconstruction technique DLP: 646 mGy-cm FINDINGS: GASTROINTESTINAL FINDINGS: Stomach: Well-distended and unremarkable in appearance. Small intestine: Satisfactorily distended and unremarkable in appearance. Large intestine: Well-distended and unremarkable in appearance. No perirectal changes demonstrated. The appendix is within normal limits. Moderate fecal retention in the colon. Additional findings: No abnormal enhancement of the vasa recta or significant mesenteric or retroperitoneal lymphadenopathy is seen. No abdominal abscess or fistulous tract demonstrated. ABDOMINAL AND PELVIC CT FINDINGS: Liver, gallbladder, biliary tract: The liver is normal in size and contour. No suspicious hepatic lesion. No biliary ductal dilatation. The gallbladder is unremarkable. Pancreas: No ductal dilatation. Spleen: Not enlarged. Adrenal glands and kidneys: The kidneys are symmetric in size and enhancement. No renal calculus. No hydronephrosis or perinephric fluid collection. Ureters and bladder: Unremarkable. Lymphovascular structures: Normal caliber abdominal aorta. No bulky abdominal or pelvic lymphadenopathy. Pelvic viscera: Uterus is surgically absent. Bones: No destructive bone lesions. Lung bases: No pleural or pericardial effusion. CT/CT enterography IMPRESSION: Unremarkable examination.
[2023-02-12] MEDS: iohexoL 350 MG/ML 100 ML INFUS..BTL IV (09:40)
[2023-02-12] MEDS: Sorbitol/Mannit/Xanth Imaging 500 ML LIQUID 1500 ML PO (09:41)
== END 2023-02-12 08:12 | disposition home or self-care (01) ==
LOC: HO.CT 08:11
PROVIDERS: PCP Nurse Practitioner Family; Visit Provider Physician Assistant
DX: K63.3 Ulcer of intestine (principal); E61.1 Iron deficiency
CPT/HCPCS: 74177; Q9967

== ENCOUNTER 2023-02-13 07:59 | Outpatient (AMB) | payer MEDICARE, SELFPAY ==
--- NOTE | 2023-02-13 08:06 | AM.OFFWIN_ITS ---
Intake Vital Signs 02/13/23 08:10 Weight 197 lb BP 120/70 Blood Pressure Location Rt brachial Position Sitting Pulse 75 Pulse Source Pulse Oximeter Pulse Oximetry (%) 97 Oxygen Delivery Method Room Air Intake Visit Reasons: EP ?Ear infection/back pain Intake Note: Patient here for ear infection that has been present for about 1 month and has been on 2 different antibiotics. She would also like to address her sciatic pain, yesterday it was very severe that starts in the lower back and going down the right leg. Patient Tobacco Use Status: Current everyday Tobacco user Allergies No Known Allergies [No Known Allergies*] Allergy (Verified 02/13/23 08:43) Medication List - Last Reconciled 02/13/23 by Willie Parson MD albuterol sulfate 90 mcg/actuation (Ventolin HFA) 2 puffs inhalation Q4-6H PRN atorvastatin 20 mg PO DAILY 90 days bupropion HCl 300 mg PO DAILY cefuroxime axetil 500 mg PO BID cyclobenzaprine 10 mg PO BEDTIME duloxetine 30 mg PO QAM duloxetine 60 mg PO QAM lorazepam 0.5 mg PO BID PRN meloxicam 15 mg PO DAILY omeprazole 40 mg PO DAILY 90 days Do you need a note to return to daycare/school/sports/work: No HPI EP ?Ear infection/back pain HPI Details 67-year-old female presents to the [facility] for a sick visit. She has 2 complaints. Continues to have congestion and pain in the right ear. She has taken 2 rounds of antibiotics. Discomfort mostly on the right side of the neck. Persistent postnasal drip. In addition patient is complaining of lower back pain. His on both sides of the hip and radiating into the knee. Patient is had similar complaints in the past. Has not started physical therapy there was ordered last time. [facility] Medical History Arthritis Chronic pain syndrome Depression with anxiety Elevated cholesterol GERD (gastroesophageal reflux disease) Sacroiliitis Sleep apnea SVT (supraventricular tachycardia) Swelling of knee joint, left Surgical History H/O colonoscopy History of cardiac radiofrequency ablation (RFA) Hx of hand surgery Hx of rotator cuff surgery Family History (Updated 12/27/22 @ 10:48 by UMBERTO Cooper Father Mental health disorder Paternal Grandfather Mental health disorder Daughter Mental health disorder Social History Household Members Other:: daughter Housing: House Are you a primary managed care analyst to a significant other at home: No Do you presently have visiting nurse or other home services: No Patient Tobacco Use Status: Current everyday Tobacco user Tobacco use type: Cigarette Cigarettes Per Day: 2 Years Smoked: 40 e-Cigarette/Vaping Use: Never Used Second Hand Smoke Exposure: No service: No Current occupational status: retired Current occupation: works part [employer] Current occupational exposures/hazards: No Cognitive needs: No Hearing needs: No Vision needs: Yes Physical Exam Vital Signs: Last Vital Signs Pulse 75 02/13/23 08:10 BP 120/70 02/13/23 08:10 Pulse Ox 97 02/13/23 08:10 Oxygen Delivery Method Room Air 02/13/23 08:10 Const General: cooperative and healthy appearing Nutritional Appearance: well nourished Orientation/consciousness: patient oriented x3 Limitations: no limitations HEENT Head: Yes normal to inspection Eyes General: appearance normal, both eyes and all related structures Neck Neck: Yes normal visual inspection Chest Chest palpation & inspection: normal palpation of entire chest wall Resp Effort & Inspection: normal respiratory effort Neuro General: patient oriented x3 Assessment & Plan Assessment & Plan (1) Low back pain: Code(s): M54.50 - Low back pain, unspecified Qualifiers: Chronicity: acute Back pain laterality: bilateral Sciatica presence: without sciatica Qualified Code(s): M54.50 - Low back pain, unspecified Plan: Anti-inflammatories and muscle relaxants called in. Physical therapy ordered again. He compress suggested P (2) Seasonal allergies: Code(s): J30.2 - Other seasonal allergic rhinitis Plan: No further antibiotics needed. Patient was encouraged to start Flonase. Medications: Refilled cyclobenzaprine 10 mg PO BEDTIME 14 tabs 0RF meloxicam 15 mg PO DAILY 14 tabs 0RF Coding Level of Care Code Est Pt Level 4 (13649) Diagnoses Acute bilateral low back pain without sciatica M54.50 Chronicity: acute Back pain laterality: bilateral Sciatica presence: without sciatica Seasonal allergies J30.2
[2023-02-13 08:10] VITALS: BP 120/70; PULSE 75; O2SAT 97
== END 2023-02-13 09:40 | disposition home or self-care (01) ==
PROVIDERS: PCP Nurse Practitioner Family; Visit Provider Internal Medicine
DX: M54.50 Low back pain, unspecified (principal); J30.2 Other seasonal allergic rhinitis
CPT/HCPCS: 99214

== ENCOUNTER 2023-02-18 08:52 | Outpatient (AMB) | payer MEDICARE, SELFPAY ==
--- NOTE | 2023-02-18 08:55 | MHC.OFFVIS ---
Intake Intake Visit Reasons: Retention of urine Intake Note: New Patient presents for initial visit for Retention/incomplete bladder emptying Urology Medications: none Blood Thinner: none PVR: 4ml's Surveillance Dual Rate Officer Required: No Accompanied by: Self / Same As Patient Allergies No Known Allergies [No Known Allergies*] Allergy (Verified 02/18/23 08:56) HPI HPI Comments History of Present Illness Details Nereida Keller is a very pleasant 67-year-old female patient of Dr. Shaw. She has a past medical history of arthritis, SVT, sleep apnea, GERD, hypercholesteremia, depression, anxiety, chronic pain syndrome, and sacroiliitis. She presents to the office today as a new patient for her history of incomplete bladder emptying. In discussion with the patient today she reports to be doing and feeling well. She discusses having a longstanding history of CIC for over 10 years. She reports following up with a urologist at [place] in the past. However, she discusses after weight loss of approximately 15 lb many years ago she was able to completely empty her bladder and has not had to CIC for a few years. She discusses noting over the last 8-9 months having difficulty initiating her urinary stream and has since been self catheterizing herself up to two times per day morning and night to assist with incomplete bladder emptying. When asked she reports to be getting approximately 200-300 mL of urine morning and night upon catheterization. When asked she denies knowing any previous workup for incomplete bladder emptying. Discussed at length potential causes for incomplete bladder emptying. Discussed obtaining retroperitoneal ultrasound for further assessment evaluation. Will provide prescription for 14 Kinyarwanda female catheters as requested. She otherwise denies hematuria, dysuria, foul smelling urine, changes to urinary stream, flank pain, fever, and or chills. Discussed possible near future in office cystoscopy for further assessment evaluation. Discuss trial of low-dose terazosin verses bethanechol. [facility] Medical History Swelling of knee joint, left Arthritis SVT (supraventricular tachycardia) Sleep apnea GERD (gastroesophageal reflux disease) Elevated cholesterol Depression with anxiety Chronic pain syndrome Sacroiliitis Surgical History Hx of hand surgery Hx of rotator cuff surgery H/O colonoscopy History of cardiac radiofrequency ablation (RFA) Family History Father Mental health disorder Paternal Grandfather Mental health disorder Daughter Mental health disorder Social History Household Members Other:: daughter Housing: House Are you a primary veterinarian laboratory animal care to a significant other at home: No Do you presently have visiting nurse or other home services: No Patient Tobacco Use Status: Current everyday Tobacco user Tobacco use type: Cigarette Cigarettes Per Day: 2 Years Smoked: 40 e-Cigarette/Vaping Use: Never Used Second Hand Smoke Exposure: No service: No Current occupational status: retired Current occupation: works part [employer] Current occupational exposures/hazards: No Cognitive needs: No Hearing needs: No Vision needs: Yes Review of Systems Const Reports as per HPI Eyes Reports no additional complaints ENT Reports no additional complaints Card Reports as per HPI Resp Reports as per HPI GI Reports as per HPI Reports as per HPI Musc Reports as per HPI Neuro Reports no additional complaints Psych Reports as per HPI Endo Reports no additional complaints Claudio/Lymph Reports no additional complaints Aller/Immun Reports no additional complaints Physical Exam Const General: cooperative, healthy appearing, comfortable, no acute distress, well developed, alert and awake Orientation/consciousness: patient oriented x3 Limitations: no limitations HEENT Head: Yes normal to inspection, Yes normocephalic and Yes atraumatic Ears: hearing grossly normal bilaterally Eyes General: appearance normal, both eyes and all related structures Neck Neck: Yes normal visual inspection and Yes trachea midline Chest Chest palpation & inspection: normal inspection of the chest Resp Effort & Inspection: normal respiratory effort and able to speak in complete sentences Cardio Rate: regular rate GI Inspection: Yes normal to inspection General: Yes no CVA tenderness Back/Spine/Pelvis Back: no CVA tenderness Skin General skin exam: no rashes or lesions noted Neuro General: patient oriented x3 Extrem General: Yes normal to inspection Psych Appearance: grossly normal and well kempt Mental Status: mental status grossly normal Speech and movement: Normal speech and movement present and Clear speech present Affect: normal affect Attitude: cooperative Thought process: Normal thought process present Thought content: Normal thought content present Insight: Good insight present (Psych) Judgement: Good judgement present (Psych) Office Procedures Post Void Residual Post Residual Void Post Void Residual (PVR): 4 [id number] Void Residual by ultrasound Results AMB Urinalysis, Automated UA Leukoctes 0 Karime/uL Last Edit by Kailash Almonte on 02/18/23 09:21 UA Nitrite Last Edit by Kailash Almonte on 02/18/23 09:21 UA Urobilinogen 0.2 mg/dL Last Edit by Kailash Almonte on 02/18/23 09:21 UA Protein 0 mg/dL Last Edit by Kailash Almonte on 02/18/23 09:21 UA pH 6.0 Last Edit by Kailash Almonte on 02/18/23 09:21 UA Blood 0 Moises/uL Last Edit by Kailash Almonte on 02/18/23 09:21 UA Specific Dell 1.010 Last Edit by Kailash Almonte on 02/18/23 09:21 UA Ketone Negative Last Edit by Kailash Almonte on 02/18/23 09:21 UA Bilirubin 0 mg/dL Last Edit by Kailash Almonte on 02/18/23 09:21 UA Glucose 0 mg/dL Last Edit by Kailash Almonte on 02/18/23 09:21 Results Reviewed Results Reviewed: Laboratory Last Values Urine pH (Auto) 6.0 02/18/23 08:58 Specific Dell (Auto) 1.010 02/18/23 08:58 Urine Protein (Auto) 0 mg/dL 02/18/23 08:58 Glucose (UA)(Auto) 0 mg/dL 02/18/23 08:58 Urine Ketones (Auto) Negative 02/18/23 08:58 Urine Blood (Auto) 0 Moises/uL 02/18/23 08:58 Urine Bilirubin (Auto) 0 mg/dL 02/18/23 08:58 Urine Urobilinogen (Auto) 0.2 mg/dL 02/18/23 08:58 Leukocyte Esterase (Auto) 0 Karime/uL 02/18/23 08:58 Assessment & Plan Assessment & Plan (1) Incomplete bladder emptying: Code(s): R33.9 - Retention of urine, unspecified Plan In office urinalysis results reviewed with the patient today. PVR 4 mL. Will obtain retroperitoneal ultrasound for further assessment evaluation. Patient will CIC indefinitely 2 times per day as discussed Patient denies any bothersome urinary issues or concerns at this time. Discussed bladder triggers/irritants Discussed low-dose terazosin verses bethanechol; however patient is reluctant to take medications at this time. Follow-up in 1-2 months with imaging to be completed prior; or sooner with any issues, concerns, and or questions. Orders: Orders US retroperitoneal comp Today R33.9 - Retention of urine, unspecified AMB Urinalysis Automated Today Z13.9 - Encounter for screening, unspecified AMB Post Void Residual by ultrasound Today R33.9 - Retention of urine, unspecified Patient Instructions: The patient had an opportunity to ask questions regarding the treatment plan. All questions were answered. Physical exam, labs, and imaging were discussed and reviewed in detail. As well as risks, benefits, and discussion of treatment choices. No major barriers to understanding were identified. The patient expressed understanding and agreement with the above treatment plan. The patient was made aware they should contact our office by phone for worsening of their current condition, the appearance of new symptoms, or with any questions or concerns. Compliance is encouraged with any medications and follow up testing that is ordered. It is a privilege to be allowed the opportunity to participate in? your urological care.? Again, if you have any questions or concerns If you have any questions or concerns please do not hesitate to contact me. The office is [phone]. This note is constructed using voice recognition software. While every effort has been made to ensure accuracy submarine element coordinator errors may have been included. Yours sincerely, BRIAN Levin Coding Level of Care Code New Pt Level 3 (37418) Diagnoses Incomplete bladder emptying R33.9 CPT Codes Post Residual Void - PVR CPT Code: [id number]-[id number] Void Residual by ultrasound ([id number])
== END 2023-02-18 10:00 | disposition home or self-care (01) ==
PROVIDERS: PCP Nurse Practitioner Family; Visit Provider Nurse Practitioner Family
DX: R33.9 Retention of urine, unspecified (principal)
CPT/HCPCS: 99203

== ENCOUNTER → 2023-02-18 08:52 | Outpatient (BNVA) | payer MEDICARE, SELFPAY | PROVIDERS: PCP Nurse Practitioner Family; Visit Provider Nurse Practitioner Family | DX: R33.9 Retention of urine, unspecified (principal) | CPT/HCPCS: 51798; 81003 ==

== ENCOUNTER 2023-04-05 07:00 | Outpatient (RCR) | payer MEDICARE, SELFPAY ==
--- NOTE | 2023-03-14 09:10 | MHC.PT.EP ---
[facility] [place] Office [place] Office [place] Office [address] Kenzie Sahu [address] [phone] F: [phone] F: [phone] F: [phone] F: [phone] Physical Therapy Plan of Care Date of Evaluation: 03/14/23 Date of Surgery: Diagnosis: This is a 68 yo female presenting to skilled PT with a script for low back pain. Assessment: This is a 68 yo female presenting to skilled PT with a script for low back pain. Patient reporting pain has been ongoing for years and years. She reports a very sedentary job where she sat the entire day, no noted injury. However, her pain has been getting worse after she was sitting/traveling to [place] this past October. She has tried stretching, yoga, icy hot, lidocaine patches and PCP prescribed medication. She was getting cortisone injections however has not for a few years now due to limited improvements noted/insurance. Pain is located across the low back and is described as stabbing with certain movements but constantly achy/dull as well. Pain radiates and moves depending on the day, it moves from side to side and moves around. It can radiate in BLE's and is sore to the touch. Pain increases the most with laying on the couch/her sides, standing. Pain improves some with change of position. Assessment reveals pain that ranges from up to a 9-10/10 at the worst. Patient demos decreased lumbar and BLE ROM, strength of B gluts, core and back, TTP at gluts, L ITB and lower lumbar spine and impaired posture with forward head, rounded shoulders and . Based on functional limitations, impaired QOL and pain tolerance patient is a good candidate for skilled PT 2x/wk for 4wks. Frequency and Duration: The patient will be seen 2x/wk for 4wks Short Term Goals: Pt will demonstrate improved postural awareness and understanding of core engagement with supine and standing tasks without cues throughout session to improve overall back safety in 2 weeks. Pt will demonstrate centralization of sx in 2 weeks. Pt will continue to reinforce precautions, sitting, standing and ADL modifications with proper body mechanics in 2 wks. Longterm Goals: Pt will demonstrate improved outcome measure by 5 points in 4 weeks for improved functional mobility. Pt will demonstrate ability to bend and lift WNL min to no pain for household tasks in 4 wks. Pt will be I in HEP and compliant in 4wks Treatment Plan: Modalities to reduce pain, spasms and effusion. Manual therapy to restore motion and function. Therapeutic exercise to improve strength and flexibility. Neuromuscular re-education for posture and balance. Therapeutic activities to return to functional activities of daily living. Electronically signed by: Florida Flores PT Please sign and return to therapist. Thank you for your referral.
--- NOTE | 2023-05-07 08:50 | MHC.PT.DC ---
[facility] [place] Office [place] Office [place] Office [address] Kenzie Sahu [address] [phone] F: [phone] F: [phone] F: [phone] F: [phone] Physical Therapy Discharge Report Diagnosis: This is a 68 yo female presenting to skilled PT with a script for low back pain. Date of Surgery: Date of Evaluation: 03/14/23 Date of Discharge: 05/07/23 Treatments to Date: 5 Cancellations to Date: 0 No Shows to Date: 0 Discharge Status: Achieved Goals Improved Function Independent with HEP Visit Non-compliance Discharge Summary: Per last note on 04/05: Patient is doing well, increased ther-ex and decreased manual work today. No pain was reported except for a mild ache with standing hip abductions today. Educated on 2 more appointments, patient feels like she will be ready for DC at that time. She reports that she is feeling much better. Patient did not return for the remaining visits. Chart was closed after 30 days. Electronically signed by: Florida Flores PT Please sign and return to therapist. Thank you for your referral.
== END 2023-05-07 08:51 | disposition home or self-care (01) ==
LOC: HO.PTCHIC 07:00
PROVIDERS: PCP Nurse Practitioner Family; Visit Provider Internal Medicine
DX: M54.50 Low back pain, unspecified (principal)
CPT/HCPCS: 97110; 97140; 97162

== ENCOUNTER 2023-04-22 09:49 | Outpatient (REF) | payer MEDICARE, SELFPAY ==
--- NOTE | ~2023-04-22 | US_ITS ---
EXAMINATION: US RETROPERITONEAL COMPLETE (RENAL) CLINICAL INFORMATION: Retention of urine, unspecified. COMPARISON: CT enterography abdomen and pelvis with contrast 02/12/2023. TECHNIQUE: Real-time imaging of the kidneys and bladder. Limited visualization due to bowel gas. FINDINGS: RIGHT KIDNEY: 10.5 x 4.5 x 5.3 cm (SAG x AP x TRV). No hydronephrosis. No renal calculi. Renal cortical thickness is normal. Limited visualization. LEFT KIDNEY: 10.7 x 5.4 x 4.9 cm (SAG x AP x TRV). No hydronephrosis. No renal calculi. Renal cortical thickness is normal. Limited visualization. BLADDER: Well-distended. Bilateral ureteral jets are demonstrated. Prevoid bladder volume is 381 mL. Postvoid bladder volume is 73 mL. US/US retroperitoneal comp IMPRESSION: 1. No hydronephrosis. No renal calculi. Limited visualization. 2. Post void bladder volume 73 mL.
== END 2023-04-22 09:50 | disposition home or self-care (01) ==
LOC: HO.US 09:49
PROVIDERS: PCP Nurse Practitioner Family; Visit Provider Nurse Practitioner Family
DX: R33.9 Retention of urine, unspecified (principal)
CPT/HCPCS: 76770

== ENCOUNTER 2023-04-29 10:39 | Outpatient (AMB) | payer MEDICARE, SELFPAY ==
--- NOTE | 2023-04-29 11:26 | MHC.OFFVIS ---
Intake Vital Signs 04/29/23 11:27 Height 5 ft 4 in Weight 198 lb 4 oz BMI 34.0 BP 128/70 Blood Pressure Location Rt brachial Respiration 15 Pulse 72 Pulse Source Pulse Oximeter Pulse Oximetry (%) 97 Oxygen Delivery Method Room Air Intake Visit Reasons: NPV-Paresthesia of the skin-lvm Intake Note: Pt presents for new pt evaluation for paresthesia of the skin. Manager Hospitality Required: No Allergies No Known Allergies [No Known Allergies*] Allergy (Verified 04/29/23 11:27) Medication List - Last Reconciled 04/29/23 by Miesha Walker MD albuterol sulfate 90 mcg/actuation (Ventolin HFA) 2 puffs inhalation Q4-6H PRN atorvastatin 20 mg PO DAILY 90 days bupropion HCl 300 mg PO DAILY cyclobenzaprine 10 mg PO BEDTIME duloxetine 30 mg PO QAM lorazepam 0.5 mg PO BID PRN omeprazole 40 mg PO DAILY 90 days HPI HPI Comments History of Present Illness Details 68y/o female comes for evaluation of tongue lip numbness, tongue weakness affecting speech and swallowing. she says it started in 2019 when she was started on Geodon for depression. Her dose was increased initially and later decreased and stopped 4 months ago.she describes the sensation as the tongue being heavy and had difficulty controlling , so speaking was difficult . she also has involuntary tongue movements and was biting her tongue. Once she was off geodon the tongue movements improved but still has heaviness, ? numbness. she has a diagnosis of depression, anxiety- she had emotional breakdown last week , had uncontrollable crying.No suicidal ideation.she did not call crisis.she took 2 days off work which helped. [facility] Medical History (Updated 04/29/23 @ 11:59 by Miesha Walker MD) Tardive dyskinesia Swelling of knee joint, left Arthritis SVT (supraventricular tachycardia) Sleep apnea GERD (gastroesophageal reflux disease) Elevated cholesterol Depression with anxiety Chronic pain syndrome Sacroiliitis Surgical History Hx of hand surgery Hx of rotator cuff surgery H/O colonoscopy History of cardiac radiofrequency ablation (RFA) Family History Father Mental health disorder Paternal Grandfather Mental health disorder Daughter Mental health disorder Household Members Other:: daughter Housing: House Are you a primary rn transitional care to a significant other at home: No Do you presently have visiting nurse or other home services: No Patient Tobacco Use Status: Current everyday Tobacco user Tobacco use type: Cigarette Cigarettes Per Day: 2 Years Smoked: 40 e-Cigarette/Vaping Use: Never Used Second Hand Smoke Exposure: No service: No Current occupational status: retired Current occupation: works part [employer] Current occupational exposures/hazards: No Cognitive needs: No Hearing needs: No Vision needs: Yes Review of Systems Const Reports as per HPI Eyes Reports no additional complaints ENT Reports no additional complaints Card Reports as per HPI Resp Reports as per HPI GI Reports as per HPI Reports as per HPI Musc Reports as per HPI Neuro Reports no additional complaints Psych Reports as per HPI Endo Reports no additional complaints Claudio/Lymph Reports no additional complaints Aller/Immun Reports no additional complaints Physical Exam Vital Signs: Last Vital Signs Pulse 72 04/29/23 11:27 Resp 15 04/29/23 11:27 BP 128/70 04/29/23 11:27 Pulse Ox 97 04/29/23 11:27 Oxygen Delivery Method Room Air 04/29/23 11:27 BMI result Body Mass Index 34.0 Const General: cooperative, healthy appearing, comfortable and no acute distress Nutritional Appearance: overweight Orientation/consciousness: patient oriented x3 Neuro Other: mild slowness of tongue movements , mild involuntary tongue movements NO perioral movements No abnormal involuntary movements SPeech- normal Mild anxiety General: patient oriented x3, gait normal, tone normal, moves all extremities and no focal motor deficits Cranial nerves: Yes Facial sensation intact/muscles of mastication intact, Yes Bilaterally intact EOM present, Yes Nystagmus not present and Yes Normal facial strength present Cognition (Neuro): normal cognition Gait exam (Neuro): Normal gait present Motor exam (neuro): 5/5 motor strength present throughout and Normal motor muscle tone present throughout Deep tendon reflexes (DTR's): Right triceps reflex intensity grade: 1+, Left triceps reflex intensity grade: 1+, Rt Biceps (C5, C6): 1+, Left biceps reflex intensity grade: 1+, Right brachioradialis reflex intensity grade: 1+, Left brachioradialis reflex intensity grade: 1+, Right patellar reflex intensity grade: 1+ and Left patellar reflex intensity grade: 1+ Coordination: [id number] test normal Psych Appearance: grossly normal Assessment & Plan Assessment & Plan (1) Tardive dyskinesia: Comment: Related to GEODON , improved after stopping geodon Code(s): G24.01 - Drug induced subacute dyskinesia Plan I explained the diagnosis in detail Discussed management options Her symptoms are very minimal worsened by anxiety - i will follow her up clinically and hold off on medications for now I suggested she discuss with her psychiatrist about mood stabilization. Coding Level of Care Code New Pt Level 4 (89618) Diagnoses Tardive dyskinesia G24.01
[2023-04-29 11:27] VITALS: BP 128/70; PULSE 72; RESP 15; O2SAT 97; BMI 34.0
== END 2023-04-29 11:57 | disposition home or self-care (01) ==
PROVIDERS: Visit Provider Psychiatry & Neurology Neurology
DX: G24.01 Drug induced subacute dyskinesia (principal)
CPT/HCPCS: 99204

== ENCOUNTER → 2023-04-29 10:39 | Outpatient (BNVA) | payer MEDICARE, SELFPAY | PROVIDERS: Visit Provider Psychiatry & Neurology Neurology | DX: G24.01 Drug induced subacute dyskinesia (principal) | CPT/HCPCS: 99202 ==

== ENCOUNTER 2023-05-22 14:31 | Outpatient (AMB) | payer MEDICARE, SELFPAY ==
--- NOTE | 2023-05-22 15:01 | MHC.OFFVIS ---
Intake Intake Visit Reasons: 2m/US(set)/ PVR Intake Note: Patient presents for follow up visit for Retention/incomplete bladder emptying Urology Medications: none Blood Thinner: none PVR: 32ml's Cook Frozen Dessert Required: No Accompanied by: Self / Same As Patient Allergies No Known Allergies [No Known Allergies*] Allergy (Verified 05/25/23 22:57) Medication List - Last Reconciled 05/25/23 by BRIAN Levin albuterol sulfate 90 mcg/actuation (Ventolin HFA) 2 puffs inhalation Q4-6H PRN atorvastatin 20 mg PO DAILY 90 days bupropion HCl 300 mg PO DAILY cyclobenzaprine 10 mg PO BEDTIME duloxetine 30 mg PO QAM lorazepam 0.5 mg PO BID PRN omeprazole 40 mg PO DAILY 90 days HPI HPI Comments History of Present Illness Details Nereida Keller is a very pleasant 68-year-old female patient of Dr. Shaw. She has a past medical history of arthritis, SVT, sleep apnea, GERD, hypercholesteremia, depression, anxiety, chronic pain syndrome, and sacroiliitis. She presents to the office today for a follow up. Of note, patient was seen approximately 3 months ago as a new patient for her history of incomplete bladder emptying at which time a retroperitoneal ultrasound was ordered for further assessment evaluation. These results were reviewed with the patient today. Bilateral kidneys with no calculi or hydronephrosis noted. The bladder is well distended. Bilateral ureteral jets are demonstrated. Pre void bladder volume is approximately 380 mL. Postvoid bladder volume is approximately 75 mL. She has a longstanding history of performing CIC intermittently for incomplete bladder emptying. Discussed at length potential causes for incomplete bladder emptying. She otherwise denies any bothersome urinary issues or concerns. She denies hematuria, dysuria, foul smelling urine, changes to urinary stream, flank pain, fever, and or chills. Discussed possible near future in office cystoscopy for further assessment evaluation. Discussed trial of low-dose terazosin verses bethanechol however patient will continue with CIC as she has been. In office urinalysis results reviewed with the patient today. PVR 32 mL. She otherwise offers no issues or concerns at this time. [facility] Medical History Tardive dyskinesia Swelling of knee joint, left Arthritis SVT (supraventricular tachycardia) Sleep apnea GERD (gastroesophageal reflux disease) Elevated cholesterol Depression with anxiety Chronic pain syndrome Sacroiliitis Surgical History Hx of hand surgery Hx of rotator cuff surgery H/O colonoscopy History of cardiac radiofrequency ablation (RFA) Family History Father Mental health disorder Paternal Grandfather Mental health disorder Daughter Mental health disorder Social History Household Members Other:: daughter Housing: House Are you a primary neurocritical care physician to a significant other at home: No Do you presently have visiting nurse or other home services: No Patient Tobacco Use Status: Current everyday Tobacco user Tobacco use type: Cigarette Cigarettes Per Day: 2 Years Smoked: 40 e-Cigarette/Vaping Use: Never Used Second Hand Smoke Exposure: No service: No Current occupational status: retired Current occupation: works part [employer] Current occupational exposures/hazards: No Cognitive needs: No Hearing needs: No Vision needs: Yes Review of Systems Const Reports as per HPI Eyes Reports no additional complaints ENT Reports no additional complaints Card Reports as per HPI Resp Reports as per HPI GI Reports as per HPI Reports as per [facility] Musc Reports as per HPI Neuro Reports no additional complaints Psych Reports as per HPI Endo Reports no additional complaints Claudio/Lymph Reports no additional complaints Aller/Immun Reports no additional complaints Physical Exam Const General: cooperative, healthy appearing, comfortable, no acute distress, well developed, alert and awake Orientation/consciousness: patient oriented x3 Limitations: no limitations HEENT Head: Yes normal to inspection, Yes normocephalic and Yes atraumatic Ears: hearing grossly normal bilaterally Eyes General: appearance normal, both eyes and all related structures Neck Neck: Yes normal visual inspection and Yes trachea midline Chest Chest palpation & inspection: normal inspection of the chest Resp Effort & Inspection: normal respiratory effort and able to speak in complete sentences Cardio Rate: regular rate GI Inspection: Yes normal to inspection General: Yes no CVA tenderness Back/Spine/Pelvis Back: no CVA tenderness Skin General skin exam: no rashes or lesions noted Neuro General: patient oriented x3 Extrem General: Yes normal to inspection Psych Appearance: grossly normal and well kempt Mental Status: mental status grossly normal Speech and movement: Normal speech and movement present and Clear speech present Affect: normal affect Attitude: cooperative Thought process: Normal thought process present Thought content: Normal thought content present Insight: Good insight present (Psych) Judgement: Good judgement present (Psych) Results AMB Urinalysis, Automated UA Leukoctes 0 Karime/uL Last Edit by Coworks on 05/22/23 15:39 UA Nitrite Negative Last Edit by Coworks on 05/22/23 15:39 UA Urobilinogen 0.2 mg/dL Last Edit by Coworks on 05/22/23 15:39 UA Protein 0 mg/dL Last Edit by Coworks on 05/22/23 15:40 UA Protein previously reported as 100 Coworks 05/22/23 15:40 UA pH 6.0 Last Edit by [employer]orks on 05/22/23 15:39 UA Blood 0 Moises/uL Last Edit by Coworks on 05/22/23 15:39 UA Specific [place] 1.025 Last Edit by Coworks on 05/22/23 15:40 UA Specific [place] previously reported as 1.015 Coworks 05/22/23 15:40 UA Ketone Negative Last Edit by Coworks on 05/22/23 15:39 UA Bilirubin 0 mg/dL Last Edit by Coworks on 05/22/23 15:39 UA Glucose 0 mg/dL Last Edit by Coworks on 05/22/23 15:40 UA Glucose previously reported as 250 Coworks 05/22/23 15:40 Results Reviewed Results Reviewed: Laboratory Last Values Urine pH (Auto) 6.0 05/22/23 15:07 Specific [place] (Auto) 1.025 05/22/23 15:07 Urine Protein (Auto) 0 mg/dL 05/22/23 15:07 Glucose (UA)(Auto) 0 mg/dL 05/22/23 15:07 Urine Ketones (Auto) Negative 05/22/23 15:07 Urine Blood (Auto) 0 Moises/uL 05/22/23 15:07 Urine Nitrite (Auto) Negative 05/22/23 15:07 Urine Bilirubin (Auto) 0 mg/dL 05/22/23 15:07 Urine Urobilinogen (Auto) 0.2 mg/dL 05/22/23 15:07 Leukocyte Esterase (Auto) 0 Karime/uL 05/22/23 15:07 Date of Service: 04/22/23 EXAMINATION: US RETROPERITONEAL COMPLETE (RENAL) FINDINGS: RIGHT KIDNEY: 10.5 x 4.5 x 5.3 cm (SAG x AP x TRV). No hydronephrosis. No renal calculi. Renal cortical thickness is normal. Limited visualization. LEFT KIDNEY: 10.7 x 5.4 x 4.9 cm (SAG x AP x TRV). No hydronephrosis. No renal calculi. Renal cortical thickness is normal. Limited visualization. BLADDER: Well-distended. Bilateral ureteral jets are demonstrated. Prevoid bladder volume is 381 mL. Postvoid bladder volume is 73 mL. IMPRESSION: 1. No hydronephrosis. No renal calculi. Limited visualization. 2. Post void bladder volume 73 mL. Assessment & Plan Assessment & Plan (1) Incomplete bladder emptying: Code(s): R33.9 - Retention of urine, unspecified Plan In office urinalysis results reviewed with the patient today; as noted above. PVR 32 mls Recent retroperitoneal ultrasound results reviewed with the patient today; as noted above Patient will CIC indefinitely 2 times per day as discussed Patient denies any bothersome urinary issues or concerns at this time. Discussed bladder triggers/irritants Discussed low-dose terazosin verses bethanechol; however patient is reluctant to take medications at this time. Follow-up in one year with PVR; or sooner with any issues, concerns, and or questions. Orders: Orders AMB Urinalysis Automated 05/22/23 Z13.9 - Encounter for screening, unspecified Patient Instructions: The patient had an opportunity to ask questions regarding the treatment plan. All questions were answered. Physical exam, labs, and imaging were discussed and reviewed in detail. As well as risks, benefits, and discussion of treatment choices. No major barriers to understanding were identified. The patient expressed understanding and agreement with the above treatment plan. The patient was made aware they should contact our office by phone for worsening of their current condition, the appearance of new symptoms, or with any questions or concerns. Compliance is encouraged with any medications and follow up testing that is ordered. It is a privilege to be allowed the opportunity to participate in? your urological care.? Again, if you have any questions or concerns If you have any questions or concerns please do not hesitate to contact me. The office is [phone]. This note is constructed using voice recognition software. While every effort has been made to ensure accuracy microbiology lab analyst errors may have been included. Yours sincerely, BRIAN Levin Coding Level of Care Code Est Pt Level 3 (38509) Diagnoses Incomplete bladder emptying R33.9
== END 2023-05-22 15:48 | disposition home or self-care (01) ==
LOC: HO.HUSH 14:32
PROVIDERS: PCP Nurse Practitioner Family; Visit Provider Nurse Practitioner Family
DX: R33.9 Retention of urine, unspecified (principal)
CPT/HCPCS: 99213

== ENCOUNTER → 2023-05-22 14:31 | Outpatient (BNVA) | payer MEDICARE, SELFPAY | PROVIDERS: PCP Nurse Practitioner Family; Visit Provider Nurse Practitioner Family | DX: R33.9 Retention of urine, unspecified (principal) | CPT/HCPCS: 81003; 99212 ==

== ENCOUNTER 2023-07-01 08:22 | Outpatient (AMB) | payer MEDICARE, SELFPAY ==
--- NOTE | 2023-07-01 08:24 | MHC.PC.OV ---
Vital Signs 07/01/23 08:27 Height 5 ft 4 in Weight 205 lb 4 oz BMI 35.2 BP 132/86 Blood Pressure Location Lt brachial Position Sitting Pulse 94 Pulse Source Pulse Oximeter Pulse Oximetry (%) 97 Oxygen Delivery Method Room Air Intake Visit Reasons: 6m follow Intake Note: Pt is here for a 6 month follow up for her thyriod and meds pt says she thinks she has a sinus infection she has pressure and pain in her face and ear and has used her inhaler Allergies No Known Allergies [No Known Allergies*] Allergy (Verified 07/01/23 08:32) Medication List - Last Reconciled 07/01/23 by BRIAN Dowd albuterol sulfate 90 mcg/actuation (Ventolin HFA) 2 puffs inhalation Q4-6H PRN atorvastatin 20 mg PO DAILY 90 days bupropion HCl 300 mg PO DAILY duloxetine 30 mg PO QAM lorazepam 0.5 mg PO BID PRN omeprazole 40 mg PO DAILY 90 days Tobacco use date assessed: 07/01/23 Fall risk assessment: No Falls in past year Last assessed Fall Risk: 07/01/23 Dental Screening Dental Screen Date: 07/01/23 Did you have a dental visit in the last 12 months?: Yes Did you have a dental problem in the last 6 months where you did not have access to dental care?: No Was dental information given to patient?: Patient has dentist HPI 6m follow HPI Details Pt has a hx of tardive dyskinesia. She is following up with neurology for this. Pt reports this is getting better. Pt does report sinus pressure, ongoing sinusitis, start a couple of weeks ago. I will treat with an antibiotic at this point. Denies any fevers, chills, SOB. She did report some chest tightness, but reports significant improvement with use of inhaler. dyslipidemia: on atorvastatin 20mg, will recheck labs [facility] Medical History Tardive dyskinesia Swelling of knee joint, left Arthritis SVT (supraventricular tachycardia) Sleep apnea GERD (gastroesophageal reflux disease) Elevated cholesterol Depression with anxiety Chronic pain syndrome Sacroiliitis Surgical History Hx of hand surgery Hx of rotator cuff surgery H/O colonoscopy History of cardiac radiofrequency ablation (RFA) Family History (Reviewed 07/01/23 @ 10:00 by Buddy Shaw [facility] Father Mental health disorder Paternal Grandfather Mental health disorder Daughter Mental health disorder Social History Household Members Other:: daughter Housing: House Are you a primary home care chaplain to a significant other at home: No Do you presently have visiting nurse or other home services: No Patient Tobacco Use Status: Current everyday Tobacco user Tobacco use type: Cigarette Cigarettes Per Day: 2 Years Smoked: 40 e-Cigarette/Vaping Use: Never Used Second Hand Smoke Exposure: No service: No Current occupational status: retired Current occupation: works part [email or web address] Current occupational exposures/hazards: No Cognitive needs: No Hearing needs: No Vision needs: Yes Questionnaire PHQ-9 Over the last 2 weeks, how often have you been bothered by any of the following problems? 1. Little interest or pleasure in doing things: nearly every day 2. Feeling down, depressed, or hopeless: more than half the days 3. Trouble falling or staying asleep, or sleeping too much: several days 4. Feeling tired or having little energy: more than half the days 5. Poor appetite or overeating: more than half the days 6. Feeling bad about yourself - or that you are a failure or have let yourself or your family down: more than half the days 7. Trouble concentrating on things, such as reading the newspaper or watching television: several days 8. Moving or speaking so slowly that other people could have noticed. Or the opposite - being so fidgety or restless that you have been moving around a lot more than usual: not at all 9. Thoughts that you would be better off or of hurting yourself in some way: several days Total score: 14 Source: Developed by Drs. Callum Valdivia, Sarah Roberts, Jaime Harrison and colleagues, with an educational sigrid from [employer]. Thrive Questionnaire Date Thrive assessed: 07/01/23 I am a: Patient What is your living situation today?: I choose not to answer this question Within the past 12 months, did the food you bought not last and you didn't have the money to get more?: I choose not to answer this question Within the past 12 months, did you worry whether your food would run out before you got money to buy more?: I choose not to answer this question Do you have trouble paying for medicines?: I choose not to answer this question Do you have trouble getting transportation to medical appointments?: I choose not to answer this question Do you have trouble paying your heating and electricity bill?: I choose not to answer this question Do you have trouble taking care of your child, family member or friend?: I choose not to answer this question Do you have trouble with day-to-day activities such as bathing, preparing meals, shopping, managing finances, etc.?: I choose not to answer this question Are you currently unemployed and looking for a job?: I choose not to answer this question Are you interested in more education?: I choose not to answer this question THRIVE Score: 0 AUDIT C Alcohol Use Questionnaire (AUDIT-C) 1. How often do you have a drink containing alcohol?: Monthly or less 2. How many drinks containing alcohol do you have on a typical day when you are drinking?: 1 or 2 3. How often do you have six or more drinks on one occasion?: Never Total Score: 1 GIBRAN-7 AMB Questionnaire GIBRAN-7 Date GIBRAN - 7 assessed: 07/01/23 Feeling nervous, anxious, or on edge: 2 = More than half the days Not being able to stop or control worryin = Several days Worrying too much about different things: 1 = Several days Trouble relaxin = More than half the days Being so restless that it is hard to sit still: 1 = Several days Becoming easily annoyed or irritable: 1 = Several days Feeling afraid as if something awful might happen: 1 = Several days Total GIBRAN-7 score (0-4 normal; 5-9 mild; 10-14 moderate; 15-21 severe): 9 Source: Developed by Drs. Callum Vadlivia, Sarah Roberts, Jaime Harrison and colleagues, with an educational sigrid from [employer] Review of Systems Const Reports as per HPI Physical exam (Primary Care) Vital Signs: Last Vital Signs Pulse 94 07/01/23 08:27 BP 132/86 07/01/23 08:27 Pulse Ox 97 07/01/23 08:27 Oxygen Delivery Method Room Air 07/01/23 08:27 BMI result Body Mass Index 35.2 Tobacco/Smoking Status: Tobacco use Status Tobacco use date assessed 07/01/23 07/01/23 08:34 Patient Tobacco Use Status Current everyday Tobacco 07/01/23 08:26 Tobacco use type Cigarette 07/01/23 08:26 e-Cigarette/Vaping Use Never Used 07/01/23 08:26 Thrive Assessment: Date of Thrive Assessment Date Thrive assessed 06/14/21 07/01/23 08:26 Const General: cooperative Nutritional Appearance: obese Orientation/consciousness: patient oriented x3 HENMT Other: faint erythema noted to to right tm. frontal and maxillary sinus pressure noted with palpation Resp Effort & Inspection: normal respiratory effort Auscultation: clear to auscultation bilaterally Cardio Rate: regular rate Rhythm: regular rhythm Heart sounds: S1 normal heart sound present and S2 normal heart sound present Neuro General: patient oriented x3 Extrem Right lower extremity: no edema Left lower extremity: no edema Psych Appearance: grossly normal Mental Status: mental status grossly normal Speech and movement: Normal speech and movement present Affect: normal affect Attitude: cooperative Thought process: Normal thought process present Thought content: Normal thought content present Insight: Good insight present (Psych) Judgement: Good judgement present (Psych) Assessment and Plan Assessment & Plan (1) Tardive dyskinesia: Comment: Related to GEODON , improved after stopping geodon Code(s): G24.01 - Drug induced subacute dyskinesia Plan: Labs ordered (2) Sinus infection: Code(s): J32.9 - Chronic sinusitis, unspecified Qualifiers: Chronicity: acute Recurrence: recurrent Sinusitis location: frontal Qualified Code(s): J01.11 - Acute recurrent frontal sinusitis (3) Dyslipidemia: Code(s): E78.5 - Hyperlipidemia, unspecified Plan The patient agreed to the use of a biomedical photographer for this encounter. Scribed for BRIAN Mcclure by Radha Zabala biomedical photographer, on 07/01/2023 at 08:35 EST. Orders: Orders TSH reflex Free T4 Today E78.5 - Hyperlipidemia, unspecified, G24.01 - Drug induced subacute dyskinesia Lipid Panel Today E78.5 - Hyperlipidemia, unspecified, G24.01 - Drug induced subacute dyskinesia Complete Blood Count Auto Diff Today E78.5 - Hyperlipidemia, unspecified, G24.01 - Drug induced subacute dyskinesia Comprehensive [place]. Panel Fast Today E78.5 - Hyperlipidemia, unspecified, G24.01 - Drug induced subacute dyskinesia UA CC w/rflx Micro + Cult Today E78.5 - Hyperlipidemia, unspecified, G24.01 - Drug induced subacute dyskinesia Medications: New amoxicillin-pot clavulanate 875-125 mg 1 tab PO BID 10 days 20 tabs 0RF fluconazole take the first tab 3 days after starting your antibiotic 150 mg PO Q3D 2 tabs 0RF Coding Level of Care Code Est Pt Level 3 (07871) Diagnoses Tardive dyskinesia G24.01 Acute recurrent frontal sinusitis J01.11 Chronicity: acute Recurrence: recurrent Sinusitis location: frontal Dyslipidemia E78.5
[2023-07-01 08:27] VITALS: BP 132/86; PULSE 94; O2SAT 97; BMI 35.2
== END 2023-07-01 13:48 | disposition home or self-care (01) ==
PROVIDERS: PCP Nurse Practitioner Family; Visit Provider Nurse Practitioner Family
DX: J01.11 Acute recurrent frontal sinusitis (principal); G24.01 Drug induced subacute dyskinesia; E78.5 Hyperlipidemia, unspecified
CPT/HCPCS: 99213

== ENCOUNTER 2023-07-22 07:24 | Outpatient (REF) | payer MEDICARE, SELFPAY ==
[2023-07-22 07:45] LABS: MANUAL DIFF FLAG NO
[2023-07-22 08:24] LABS: Basophils Absolute Auto 0.1 X10*3/uL (0.0-0.2); Basophils Percent Auto 1.1 % (0-2); Eosinophils Absolute Auto 0.2 X10*3/uL (0.0-0.4); Eosinophils Percent Auto 2.8 % (0-4); Hematocrit 43.5 % (37.0-47.0); Hemoglobin 14.7 g/dl (12.0-16.0); Imm Gran Abs Auto 0.02 X10*3/uL (0.00-0.03); Imm Gran Pct Auto 0.3 % (0.0-0.4); Lymphocytes Absolute Auto 1.9 X10*3/uL (1.2-4.9); Lymphocytes Percent Auto 25.1 % (20-40); Mean Corpuscular HGB Conc 33.8 g/dl (31.0-35.0); Mean Corpuscular Hemoglobin 31.1 pg (27.0-33.0); Mean Corpuscular Volume 92.2 fL (80.0-98.0); Mean Platelet Volume 10.8 fL (9.4-12.3); Monocytes Absolute Auto 0.5 X10*3/uL (0.1-1.2); Monocytes Percent Auto 6.6 % (2-11); Neutrophils Absolute Auto 4.7 x10*3/uL (2.0-8.3); Neutrophils Percent Auto 64.1 % (45-73); Platelet Count 272 X10*3/uL (160-400); Red Blood Count 4.72 X10*6/uL (4.20-5.50); Red Cell Distribution Width 12.4 % (11.0-16.0); White Blood Count 7.4 X10*3/uL (4.8-10.8)
[2023-07-22 08:27] LABS: Appearance Urine Clear; Color Urine Yellow; Glucose Urine UA Negative (Negative); Leukocyte Esterase Urine Negative (Negative); Nitrite Urine Negative (Negative); Urine Blood Negative (Negative); Urine Ketones Negative (Negative); Urine Protein Negative (Neg-Trace)
[2023-07-22 09:09] LABS: Alanine Aminotransferase 20 U/L (0-31); Albumin Level 4.1 g/dL (3.5-5.0); Alkaline Phosphatase 79 U/L (39-117); Anion Gap 14 (12-20); Aspartate Amino Transferase 18 U/L (5-31); Bilirubin Total 0.5 mg/dL (0.0-1.0); Blood Urea Nitrogen 15 mg/dL (9-16); Calcium 9.4 mg/dL (8.4-10.2); Carbon Dioxide 24 mmol/L (22-29); Chloride 106 mmol/L (96-108); Cholesterol 173 mg/dL (<200); Estimated Glomerular Filt Rate > 60; Glucose Fasting 112 mg/dL (60-99); HDL Cholesterol 56 mg/dL (>40); LDL Cholesterol Calculated 101 mg/dL (<100); Potassium 4.1 mmol/L (3.3-5.1); Sodium 140 mmol/L (135-145); Triglycerides 84 mg/dL (<150)
[2023-07-22 09:15] LABS: TSH reflex Free T4 3.94 uIU/mL (0.32-4.0)
== END 2023-07-22 07:25 | disposition home or self-care (01) ==
LOC: HO.LAB 07:24
PROVIDERS: PCP Nurse Practitioner Family; Visit Provider Nurse Practitioner Family
DX: G24.01 Drug induced subacute dyskinesia (principal); E78.5 Hyperlipidemia, unspecified
CPT/HCPCS: 36415; 80053; 80061; 81003; 84443; 85025

== ENCOUNTER 2023-08-10 09:13 | Outpatient (AMB) | payer MEDICARE, SELFPAY ==
[2023-08-10 10:00] VITALS: BP 130/70; PULSE 77; TEMP 36.8; O2SAT 98; BMI 35.2
--- NOTE | 2023-08-10 10:00 | AM.OFFWIN_ITS ---
Intake Vital Signs 08/10/23 10:00 Height 5 ft 4 in Weight 205 lb BMI 35.2 BP 130/70 Blood Pressure Location Lt brachial Position Sitting Pulse 77 Pulse Source Pulse Oximeter Temp 98.3 F Temp Source Oral Pulse Oximetry (%) 98 Oxygen Delivery Method Room Air Intake Visit Reasons: EP, ? SINUS INFECTION & LOW BACK PAIN Intake Note: Patient is here with sinus infection and back ache. Patient Tobacco Use Status: Current everyday Tobacco user Allergies No Known Allergies [No Known Allergies*] Allergy (Verified 08/10/23 10:32) Medication List - Last Reconciled 08/10/23 by Francheska Paulino CNP albuterol sulfate 90 mcg/actuation (Ventolin HFA) 2 puffs inhalation Q4-6H PRN amoxicillin-pot clavulanate 875-125 mg 1 tab PO BID 10 days atorvastatin 20 mg PO DAILY 90 days bupropion HCl 300 mg PO DAILY duloxetine 30 mg PO QAM fluconazole 150 mg PO Q3D 2 doses lorazepam 0.5 mg PO BID PRN omeprazole 40 mg PO DAILY 90 days Do you need a note to return to daycare/school/sports/work: No HPI HPI Comments History of Present Illness Details 68-year-old female presents to [facility] complaining of sinus pressure, headache, nasal congestion, and thick nasal discharge going down her throat and difficult getting it up and out x 2 weeks. She is also c/o bilateral buttocks pain with known history of sciatica, denies pain radiating down either leg at this time, or bladder or bowel changes. She does admit to intermittent fever, but denies chills, CP, SOB, palpitations, dizziness, abdominal pain, nausea or vomiting. [facility] Medical History Tardive dyskinesia Swelling of knee joint, left Arthritis SVT (supraventricular tachycardia) Sleep apnea GERD (gastroesophageal reflux disease) Elevated cholesterol Depression with anxiety Chronic pain syndrome Sacroiliitis Surgical History Hx of hand surgery Hx of rotator cuff surgery H/O colonoscopy History of cardiac radiofrequency ablation (RFA) Family History Father Mental health disorder Paternal Grandfather Mental health disorder Daughter Mental health disorder Social History Household Members Other:: daughter Housing: House Are you a primary pharmacy care coordinator to a significant other at home: No Do you presently have visiting nurse or other home services: No Patient Tobacco Use Status: Current everyday Tobacco user Tobacco use type: Cigarette Cigarettes Per Day: 2 Years Smoked: 40 e-Cigarette/Vaping Use: Never Used Second Hand Smoke Exposure: No service: No Current occupational status: retired Current occupation: works part [employer] Current occupational exposures/hazards: No Cognitive needs: No Hearing needs: No Vision needs: Yes Review of Systems Const All systems reviewed & are unremarkable except as noted in HPI and below Physical Exam Vital Signs: Last Vital Signs Temp 98.3 F 08/10/23 10:00 Pulse 77 08/10/23 10:00 BP 130/70 08/10/23 10:00 Pulse Ox 98 08/10/23 10:00 Oxygen Delivery Method Room Air 08/10/23 10:00 BMI result Body Mass Index 35.2 Const General: cooperative, no acute distress and ill appearing Nutritional Appearance: overweight Orientation/consciousness: patient oriented x3 Limitations: no limitations HEENT Head: Yes normal to inspection, Yes normocephalic and Yes atraumatic Ears: hearing grossly normal bilaterally and TM's normal bilaterally General nose exam: Abnormal mucous membranes and turbinates present erythematous and Nasal discharge present mucoid Face and sinus: Yes abnormal transillumination of sinuses, No maxillary instability and Yes sinus tenderness Mouth: moist mucous membranes Throat: Yes tonsils normal, Yes uvula midline, Yes posterior oropharynx abnormal, Yes postnasal drainage and Yes other (erythema ) Eyes General: appearance normal, both eyes and all related structures Eyelids: Yes eyelids normal Conjunctivae: conjunctivae normal Sclerae: sclerae normal Neck Neck: Yes full ROM, Yes no meningeal signs, Yes trachea midline and Yes lymphadenopathy (bilateral submandibular lymphadenopathy) Chest Chest palpation & inspection: normal inspection of the chest Resp Effort & Inspection: normal respiratory effort, no respiratory distress and not tachypneic Auscultation: clear to auscultation bilaterally, no rhonchi and no wheezes Cardio Rate: regular rate Rhythm: regular rhythm Heart sounds: S1 normal heart sound present and S2 normal heart sound present Peripheral pulses: Peripheral pulses 2+ throughout GI Palpation (GI): Soft to palpation and nontender Auscultation: normal bowel sounds Skin General skin exam: no rashes or lesions noted, elasticity normal and turgor normal Neuro General: patient oriented x3, gait normal, moves all extremities and no meningeal signs Extrem General: Yes normal to inspection, Yes full ROM, Yes capillary refill normal and Yes no clubbing, cyanosis or edema Psych Appearance: well kempt Mental Status: mental status grossly normal Speech and movement: Normal speech and movement present Affect: normal affect Attitude: cooperative Assessment & Plan Assessment & Plan (1) Acute bacterial sinusitis: Code(s): J01.90 - Acute sinusitis, unspecified; B96.89 - Other specified bacterial agents as the cause of diseases classified elsewhere Plan: 68-year-old female seen today in office for complaint of symptoms of sinus infection, mucoid nasal drainage, sinus pressure and tenderness, headache, and intermittent fever. She does have flonase at home, encouraged to continue to use Will treat with Augmentin 1 tablet p.o. b.i.d. x7 days, encouraged to take with food or milk to reduce GI upset, encouraged to take full prescription. Drink plenty of fluid and maintain hydration, with plenty of rest. (2) Low back pain with sciatica: Code(s): M54.40 - Lumbago with sciatica, unspecified side Qualifiers: Chronicity: chronic Back pain laterality: bilateral Sciatica laterality: bilateral sciatica Qualified Code(s): M54.42 - Lumbago with sciatica, left side; M54.41 - Lumbago with sciatica, right side; G89.29 - Other chronic pain Plan: Patient also complaining of bilateral lower buttocks pain with history of sciatica, she denies pain radiating down either leg at this time, pain nonresponsive to ibuprofen, ice or heat. Will treat with short 5 day script of prednisone, 10 mg p.o. b.i.d. for pain control Encouraged to return to office for worsening or unresolved symptoms. Medications: New amoxicillin-pot clavulanate 875-125 mg 1 tab PO BID 10 days 20 tabs 0RF B96.89 - Other specified bacterial agents as the cause of diseases classified elsewhere, J01.90 - Acute sinusitis, unspecified prednisone 10 mg PO BID 5 days 10 tabs 0RF M54.40 - Lumbago with sciatica, unspecified side Coding Level of Care Code Est Pt Level 4 (83247) Diagnoses Acute bacterial sinusitis J01.90; B96.89 Chronic bilateral low back pain with bilateral sciatica M54.42; M54.41; G89.29 Chronicity: chronic Back pain laterality: bilateral Sciatica laterality: bilateral sciatica
== END 2023-08-10 10:43 | disposition home or self-care (01) ==
PROVIDERS: PCP Nurse Practitioner Family; Visit Provider Nurse Practitioner Acute Care
DX: J01.90 Acute sinusitis, unspecified (principal); B96.89 Other specified bacterial agents as the cause of diseases classified elsewhere; M54.42 Lumbago with sciatica, left side; M54.41 Lumbago with sciatica, right side; G89.29 Other chronic pain
CPT/HCPCS: 99214

== ENCOUNTER 2023-08-28 08:37 | Outpatient (AMB) | payer MEDICARE, SELFPAY ==
[2023-08-28 09:06] VITALS: BP 110/72; PULSE 86; TEMP 37.1; O2SAT 97; BMI 35.3
--- NOTE | 2023-08-28 09:06 | AM.OFFWIN_ITS ---
Intake Vital Signs 08/28/23 09:06 Height 5 ft 4 in Weight 205 lb 8 oz BMI 35.3 BP 110/72 Blood Pressure Location Rt brachial Position Sitting Pulse 86 Pulse Source Pulse Oximeter Temp 98.8 F Temp Source Oral Pulse Oximetry (%) 97 Oxygen Delivery Method Room Air Intake Visit Reasons: ?Sinus Infection (lobby) Intake Note: pt is here today for sinus infection started a few months ago and she doesn't believe it ever fully went away. She was given antibiotics in June and August for it which helped a little but never fully went away. Patient Tobacco Use Status: Current everyday Tobacco user Allergies No Known Allergies [No Known Allergies*] Allergy (Verified 08/28/23 09:15) HPI HPI Comments History of Present Illness Details She presents to office with concern for sinusitis Was last seen 08/09 for symptoms She was seen 07/01 and given Augmentin Came back 08/09 and given a second round of Augmentin She has completed without relief Also taking mucinex without resolution + congestion, post nasal drip Denies fever but + chills + sinus pressure; 01/10 She uses OTC nasal spray ,nettipot without relief Hot shower helps PFSH Medical History Tardive dyskinesia Swelling of knee joint, left Arthritis SVT (supraventricular tachycardia) Sleep apnea GERD (gastroesophageal reflux disease) Elevated cholesterol Depression with anxiety Chronic pain syndrome Sacroiliitis Surgical History Hx of hand surgery Hx of rotator cuff surgery H/O colonoscopy History of cardiac radiofrequency ablation (RFA) Family History Father Mental health disorder Paternal Grandfather Mental health disorder Daughter Mental health disorder Social History Household Members Other:: daughter Housing: House Are you a primary acute care nursing assistant to a significant other at home: No Do you presently have visiting nurse or other home services: No Patient Tobacco Use Status: Current everyday Tobacco user Tobacco use type: Cigarette Cigarettes Per Day: 2 Years Smoked: 40 e-Cigarette/Vaping Use: Never Used Second Hand Smoke Exposure: No service: No Current occupational status: retired Current occupation: works part [employer], lt [employer] Current occupational exposures/hazards: No Cognitive needs: No Hearing needs: No Vision needs: Yes Review of Systems Const Denies body aches, Denies chills, Reports fatigue, Denies fever(s) and Reports headache(s) ENT Denies dizziness, Reports otalgia, Reports headache(s), Reports nasal discharge, Reports sinus pain, Reports sinus pressure and Denies throat swelling Card Denies chest pain and Denies dyspnea Resp Denies cough and Denies dyspnea Musc Denies myalgias Neuro Denies confusion, Denies dizziness and Reports headache(s) Psych Denies confusion Endo Reports fatigue Aller/Immun Denies throat swelling Physical Exam Vital Signs: Last Vital Signs Temp 98.8 F 08/28/23 09:06 Pulse 86 08/28/23 09:06 BP 110/72 08/28/23 09:06 Pulse Ox 97 08/28/23 09:06 Oxygen Delivery Method Room Air 08/28/23 09:06 BMI result Body Mass Index 35.3 General: Non-toxic, NAD. Speaking full sentences. Skin: Warm dry throughout Eye: EOMI, PERRLA HENT: Airway patent. Uvula midline. No pharyngeal erythema or edema. No COIL WINDER REPAIR. Bilateral canals clear.light fluid behind membrane. TM non-erythematous, non- bulging. No TM perforation or hemotympanum noted. Respiratory: CTA bilaterally. No wheezes, rales or rhonchi Cardiac: RRR. No murmur MSK: Full ROM extremities. Neurology: A/O x 3. CN 2-12 grossly intact. No aphasia or facial droop. Gait without abnormality Psych: Good mood and affect Const General: No confusion Orientation/consciousness: No confusion Neuro General: No confusion Assessment & Plan Assessment & Plan (1) Bacterial sinusitis: Code(s): J32.9 - Chronic sinusitis, unspecified; B96.89 - Other specified bacterial agents as the cause of diseases classified elsewhere Plan: Patient seen and evaluated. No neurological deficit Xray sinuses viewed by muyself as negative Prednisone with food, avoid alcohol or nsaids F/U with PCP ER if worse Patient gave verbal understanding and had no additional questions or concerns at time of discharge All questions answered Orders: Orders XR sinus min 3V Today B96.89 - Other specified bacterial agents as the cause of diseases classified elsewhere, J32.9 - Chronic sinusitis, unspecified Medications: New prednisone 40 mg (2 x 20 mg) PO DAILY 10 tabs 0RF Coding Level of Care Code Est Pt Level 3 (50855) Diagnoses Bacterial sinusitis J32.9; B96.89
== END 2023-08-28 11:04 | disposition home or self-care (01) ==
PROVIDERS: PCP Nurse Practitioner Family; Visit Provider Physician Assistant
DX: J32.9 Chronic sinusitis, unspecified (principal); B96.89 Other specified bacterial agents as the cause of diseases classified elsewhere
CPT/HCPCS: 99213

== ENCOUNTER 2023-08-28 09:42 | Outpatient (REF) | payer MEDICARE, SELFPAY ==
--- NOTE | ~2023-08-28 | XR_ITS ---
EXAMINATION: XR SINUSES CLINICAL INFORMATION: Chronic sinusitis unspecified. COMPARISON: None available. TECHNIQUE: 5 views of the paranasal sinuses FINDINGS: No gross air-fluid levels identified in the maxillary sinuses. The frontal sinuses appear symmetric. Degenerative changes on very limited images of the cervical spine could be evaluated with dedicated cervical spine radiographs. Moderate hazy opacities in the ethmoid sinuses. XR/XR sinus min 3V IMPRESSION: Moderate hazy opacities in the ethmoid sinuses. CT scan is strongly recommended if there is clinical concern for sinus pathology as a CT scan is much more sensitive for detection of head and neck pathology. This study was presented today 08/28/2023 for interpretation. STAT results provided at this time as requested by referring provider.
== END 2023-08-28 09:43 | disposition home or self-care (01) ==
LOC: HO.HMGCX 09:42
PROVIDERS: PCP Nurse Practitioner Family; Visit Provider Physician Assistant
DX: J32.9 Chronic sinusitis, unspecified (principal); B96.89 Other specified bacterial agents as the cause of diseases classified elsewhere
CPT/HCPCS: 70220

== ENCOUNTER 2023-09-04 10:45 | Outpatient (REF) | payer MEDICARE, SELFPAY ==
--- NOTE | ~2023-09-04 | CT_ITS ---
EXAMINATION: CT FACIAL BONES WITHOUT CONTRAST CLINICAL INFORMATION: Hazy opacity described at ethmoid sinuses on radiographs of sinuses from 08/28/2023. COMPARISON: Radiographs from 08/28/2023. TECHNIQUE: Noncontrast CT imaging examination of the facial bones is performed. Axial images and multiplanar reformatted images are reviewed. This CT examination was performed using dose optimization techniques as appropriate, variously including the following: *Automated exposure control *Adjustment of mA and/or kV according to patient size (this includes techniques or standardized protocols for targeted exams where dose is matched to indication/reason for exam; i.e. extremities or head) *Use of iterative reconstruction technique DLP: 136 mGy-cm FINDINGS: Frontal sinuses and drainage pathways: Normal. Maxillary sinuses and drainage pathways: The maxillary sinuses are well aerated and without air-fluid levels. There is an accessory ostium of the medial wall of the left maxillary sinus. Small amount of mucus is present at the ostium of the left maxillary sinus. The uncinate processes are intact. Ethmoid and sphenoid sinuses: A small amount of mucus is present within a right anterior ethmoid air cell. There are no significant findings. Ethmoid roofs are symmetric and lamina papyracea are intact. Sphenoid sinuses are well aerated and sphenoid ostia are patent. Carotid canals are covered by bone. Nasal cavity and nasopharynx: The nasal channels are well aerated. No evidence of nasal polyposis. There is mild leftward deviation of nasal septum. Dental, facial bones and TMJs: Unremarkable. Orbits: Intact. The extraocular muscles, optic nerves and retrobulbar fat are normal. Facial soft tissues: Unremarkable. Imaged portions of the brain parenchyma: Normal. CT/CT facial bones wo IV con IMPRESSION: No significant imaging findings. No evidence of acute or chronic sinusitis.
== END 2023-09-04 10:46 | disposition home or self-care (01) ==
LOC: HO.CT 10:45
PROVIDERS: PCP Nurse Practitioner Family; Visit Provider Nurse Practitioner Family
DX: J33.8 Other polyp of sinus (principal)
CPT/HCPCS: 70486

== ENCOUNTER 2023-09-19 08:17 | Outpatient (AMB) | payer MEDICARE, SELFPAY ==
--- NOTE | 2023-09-19 08:22 | A.OFFVIS_ITS ---
Intake Vital Signs 09/19/23 08:27 Height 5 ft 4 in Weight 209 lb 7.026 oz BMI 35.9 BP 114/56 L Blood Pressure Location Rt brachial Position Sitting Pulse 76 Intake Visit Reasons: 9 month - rediscuss Colonoscopy Intake Note: Nereida presents in the office as a 9 month follow up. CC: Just due for a colo - no concerns at this time. Pharmacy Picking Tech Required: No Allergies No Known Allergies [No Known Allergies*] Allergy (Verified 09/19/23 08:27) Medication List - Last Reconciled 09/19/23 by Leann Peña PA-C albuterol sulfate 90 mcg/actuation (Ventolin HFA) 2 puffs inhalation Q4-6H PRN atorvastatin 20 mg PO DAILY 90 days bupropion HCl XL 300 mg PO DAILY bupropion HCl XL 150 mg PO QAM doxycycline hyclate 100 mg PO BID duloxetine 30 mg PO QAM duloxetine 60 mg PO DAILY lorazepam 0.5 mg PO BID PRN omeprazole 40 mg PO DAILY 90 days HPI HPI Comments History of Present Illness Details A 68 y/o female returns for 1 year repeat colonoscopy due to hx polyps and inadequate prep- Dr. Correa- Has no GI complaints, normal bowel pattern Appetite is good No nausea, vomiting, hematemesis, hematochezia fever chills PFSH Medical History Tardive dyskinesia Swelling of knee joint, left Arthritis SVT (supraventricular tachycardia) Sleep apnea GERD (gastroesophageal reflux disease) Elevated cholesterol Depression with anxiety Chronic pain syndrome Sacroiliitis Surgical History Hx of hand surgery Hx of rotator cuff surgery H/O colonoscopy History of cardiac radiofrequency ablation (RFA) Family History Father Mental health disorder Paternal Grandfather Mental health disorder Daughter Mental health disorder Social History Household Members Other:: daughter Housing: House Are you a primary lead caregiver to a significant other at home: No Do you presently have visiting nurse or other home services: No Patient Tobacco Use Status: Current everyday Tobacco user Tobacco use type: Cigarette Cigarettes Per Day: 2 Years Smoked: 40 e-Cigarette/Vaping Use: Never Used Second Hand Smoke Exposure: No service: No Current occupational status: retired Current occupation: works part [employer] Current occupational exposures/hazards: No Cognitive needs: No Hearing needs: No Vision needs: Yes Review of Systems Const All systems reviewed & are unremarkable except as noted in HPI and below Physical Exam Vital Signs: Last Vital Signs Pulse 76 09/19/23 08:27 BP 114/56 L 09/19/23 08:27 BMI result Body Mass Index 35.9 Const General: cooperative, healthy appearing, comfortable and no acute distress Orientation/consciousness: patient oriented x3 Limitations: no limitations Eyes Sclerae: sclerae normal Resp Effort & Inspection: normal respiratory effort and able to speak in complete sentences Auscultation: clear to auscultation bilaterally Cardio Rate: regular rate Rhythm: regular rhythm Heart sounds: S1 normal heart sound present and S2 normal heart sound present GI Palpation (GI): Soft to palpation and nontender Auscultation: normal bowel sounds Skin General skin exam: no rashes or lesions noted Neuro General: patient oriented x3 Extrem General: Yes full ROM Psych Appearance: grossly normal and well kempt Mental Status: mental status grossly normal Speech and movement: Normal speech and movement present and Clear speech present Affect: normal affect Attitude: cooperative Thought process: Normal thought process present Thought content: Normal thought content present Insight: Good insight present (Psych) Judgement: Good judgement present (Psych) Results Reviewed Results Reviewed: mpression and Post Procedure Diagnosis: colitis polyps internal hemorrhoids diverticular disease Plan: High fiber diet leaflet Avoid straining at stool, epsom salts and sitz bath, anusol supps or cream Repeat Colonoscopy in 1 year or earlier if clinically indicated depending on the bx might need to consider CTe and work up for crohns, smoking cessation recommended Above findings were reviewed with the patient and relevant handouts were provided if indicated. Name:Nereida Noble Age/Sex: 67/FAttending: Paramjit Correa MD : 1955Submitted by: Paramjit Correa MD to: Buddy Shaw [facility] MR #: [id number]? Status: DEP SDCCollected: 12/06/22 Location: JIMENEZReceived: 12/06/22 Diagnosis A.? Cecum, polypectomy: - Tubular adenoma; negative for high-grade dysplasia or carcinoma. - Sessile serrated lesion/polyp; negative for cytologic dysplasia. B.? Terminal ileum, biopsy:? Small intestinal mucosa within normal limits. C.? Colon, right ulcer, biopsy:? Colonic mucosa with mild surface hyperplastic changes and regenerative changes; fragments of ulcer bed. Clinical History Pre-Op Dx:? Screening Post-Op Dx: Screening, hemorrhoids, diverticulosis, colon polyps, colitis Microscopic Description 10/31/22 Impression and Post Procedure Diagnosis: internal hemorrhoids polyps poor prep, procedure incomplete Plan: High fiber diet leaflet Avoid straining at stool, epsom salts and sitz bath, anusol supps or cream Repeat Colonoscopy in 2-3 months with 2 d of clears and can add dulcolax 20 mg next time Name:?Nereida Goodman Age/Sex: 67/FAttending: Paramjit Correa MD : 1955Submitted by: Paramjit Correa MD to: AdarshisaelLuis E [facility] MR #: [id number]? Status: DEP SDCCollected: 10/31/22 Location: JIMENEZReceived: 10/31/22 Diagnosis Rectum, polypectomy:? Hyperplastic mucosal polyp. Clinical History Pre-Op Dx:? Personal history of colonic polyps Post-Op Dx: Colon polyps (1 unretrieved rectal polyp), hemorrhoids, poor prep Assessment & Plan Assessment & Plan (1) Sessile serrated polyp of colon: Code(s): D12.6 - Benign neoplasm of colon, unspecified (2) Tubular adenoma: Code(s): D36.9 - Benign neoplasm, unspecified site (3) Diverticulosis of colon: Code(s): K57.30 - Diverticulosis of large intestine without perforation or abscess without bleeding Plan Assessment & Plan Assessment & Plan (1) Sessile serrated polyp of colon: Comment: Review Code(s): D12.6 - Benign neoplasm of colon, unspecified (2) Tubular adenoma: Comment: Review Code(s): D36.9 - Benign neoplasm, unspecified site (3) Diverticulosis of colon: Comment: Reviewed Code(s): K57.30 - Diverticulosis of large intestine without perforation or abscess without bleeding Plan: ER protocol Maintain high-fiber Plan 1 yr-colon- Dr. CHRISTIE SPENCER split Orders: Orders Colonoscopy - GI Use Only Today D12.6 - Benign neoplasm of colon, unspecified, D36.9 - Benign neoplasm, unspecified site, K57.30 - Diverticulosis of large intestine without perforation or abscess without bleeding Medications: New bisacodyl (Dulcolax (bisacodyl)) Day before procedure @ 12 noon Take 4 tablets by mouth followed by large glass of water 20 mg (4 x 5 mg) PO ONCE PRN 4 tabs 0RF colonoscopy prep 1 day Z12.11 - Encounter for screening for malignant neoplasm of colon simethicone (Gas Relief (simethicone)) 125 mg PO DIRECTED PRN 20 tabs 0RF abdominal distention peg 3350-electrolytes 240-22.72-6.72 -5.84 gram until fecal effluent is clear 240 mL PO Q10M 4,000 mL 0RF Patient Instructions: 1 yr-colon- Dr. CHRISTIE SPENCER split Encouraged to call questions or concerns Coding Level of Care Code Est Pt Level 3 (77399) Diagnoses Sessile serrated polyp of colon D12.6 Tubular adenoma D36.9 Diverticulosis of colon K57.30 Time Spent (min) 30
[2023-09-19 08:27] VITALS: BP 114/56; PULSE 76; BMI 35.9
== END 2023-09-19 08:57 | disposition home or self-care (01) ==
PROVIDERS: PCP Nurse Practitioner Family; Visit Provider Physician Assistant
DX: D12.6 Benign neoplasm of colon, unspecified (principal); D36.9 Benign neoplasm, unspecified site; K57.30 Diverticulosis of large intestine without perforation or abscess without bleeding
CPT/HCPCS: 99213

== ENCOUNTER → 2023-09-19 08:17 | Outpatient (BNVA) | payer MEDICARE, SELFPAY | PROVIDERS: PCP Nurse Practitioner Family; Visit Provider Physician Assistant | DX: D12.6 Benign neoplasm of colon, unspecified (principal); D36.9 Benign neoplasm, unspecified site; K57.30 Diverticulosis of large intestine without perforation or abscess without bleeding | CPT/HCPCS: 99212 ==

== ENCOUNTER 2023-10-31 10:23 | Outpatient (AMB) | payer MEDICARE, SELFPAY ==
--- NOTE | 2023-10-31 10:25 | MHC.OFFVIS ---
Vital Signs 10/31/23 10:27 Height 5 ft 4 in Weight 213 lb 6 oz BMI 36.6 BP 108/62 Blood Pressure Location Rt brachial Position Sitting Respiration 17 Pulse 76 Pulse Source Pulse Oximeter Pulse Oximetry (%) 98 Oxygen Delivery Method Room Air Intake Visit Reasons: 6 mo f/u Paresthesia of skin - LVM w/add Intake Note: Pt presents to the office for a 6 month follow up for tardive dyskinesia. Catering Director Required: No Allergies No Known Allergies [No Known Allergies*] Allergy (Verified 10/31/23 10:25) Medication List - Last Reconciled 10/31/23 by Miesha Walker MD albuterol sulfate 90 mcg/actuation (Ventolin HFA) 2 puffs inhalation Q4-6H PRN atorvastatin 20 mg PO DAILY 90 days bisacodyl (Dulcolax (bisacodyl)) 20 mg (4 x 5 mg) PO ONCE PRN 1 day bupropion HCl XL 300 mg PO DAILY bupropion HCl XL 150 mg PO QAM duloxetine 30 mg PO QAM duloxetine 60 mg PO DAILY gabapentin 100 mg PO BEDTIME lorazepam 0.5 mg PO BID PRN omeprazole 40 mg PO DAILY 90 days peg 3350-electrolytes 240-22.72-6.72 -5.84 gram 240 mL PO Q10M simethicone (Gas Relief (simethicone)) 125 mg PO DIRECTED PRN HPI Comments Details: 68y/o female comes for follow up of tardive dyskinesia . Her mood is better but still of tongue lip numbness, tongue weakness affecting speech and swallowing- worse at night.she is embarrassed she reports leg jerks at night when she is sleeping she also has snoring, and hypersomnia.she has h/o CINDY used to be on CPAP . But she stopped 2 years ago . she says it started in 2019 when she was started on Geodon for depression. Her dose was increased initially and later decreased and stopped 10 months ago.she describes the sensation as the tongue being heavy and had difficulty controlling , so speaking was difficult . she also has involuntary tongue movements and was biting her tongue. Once she was off geodon the tongue movements improved. [facility] Medical History (Updated 10/31/23 @ 10:54 by Miesha Walker MD) Obstructive sleep apnea of adult Tardive dyskinesia Swelling of knee joint, left Arthritis SVT (supraventricular tachycardia) Sleep apnea GERD (gastroesophageal reflux disease) Elevated cholesterol Depression with anxiety Chronic pain syndrome Sacroiliitis Surgical History Hx of hand surgery Hx of rotator cuff surgery H/O colonoscopy History of cardiac radiofrequency ablation (RFA) Family History Father Mental health disorder Paternal Grandfather Mental health disorder Daughter Mental health disorder Social History Household Members Other:: daughter Housing: House Are you a primary career specialist to a significant other at home: No Do you presently have visiting nurse or other home services: No Patient Tobacco Use Status: Current everyday Tobacco user Tobacco use type: Cigarette Cigarettes Per Day: 2 Years Smoked: 40 e-Cigarette/Vaping Use: Never Used Second Hand Smoke Exposure: No service: No Current occupational status: retired Current occupation: works part [employer] Current occupational exposures/hazards: No Cognitive needs: No Hearing needs: No Vision needs: Yes Physical Exam Vital Signs: Last Vital Signs Pulse 76 10/31/23 10:27 Resp 17 10/31/23 10:27 BP 108/62 10/31/23 10:27 Pulse Ox 98 10/31/23 10:27 Oxygen Delivery Method Room Air 10/31/23 10:27 BMI result Body Mass Index 36.6 Const General: cooperative, healthy appearing, comfortable and no acute distress Nutritional Appearance: overweight Orientation/consciousness: patient oriented x3 Neuro Other: mild slowness of tongue movements , mild involuntary tongue movements NO perioral movements No abnormal involuntary movements SPeech- normal Mild anxiety General: patient oriented x3, gait normal, tone normal, moves all extremities and no focal motor deficits Cranial nerves: Yes Facial sensation intact/muscles of mastication intact, Yes Bilaterally intact EOM present, Yes Nystagmus not present and Yes Normal facial strength present Cognition (Neuro): normal cognition Gait exam (Neuro): Normal gait present Motor exam (neuro): 5/5 motor strength present throughout and Normal motor muscle tone present throughout Coordination: [id number] test normal Psych Appearance: grossly normal Assessment & Plan Assessment & Plan (1) Tardive dyskinesia: Comment: Related to GEODON , improved after stopping geodon Code(s): G24.01 - Drug induced subacute dyskinesia Category: Medical (2) Obstructive sleep apnea of adult: Code(s): G47.33 - Obstructive sleep apnea (adult) (pediatric) Category: Medical Plan sleep study report from PCP I will trial her on gabapentin 100mg qhs for nocturnal leg movements. Her symptoms are very minimal worsened by anxiety - hold off on medications for now F/u with psychiatry. Medications: New gabapentin 100 mg PO BEDTIME 30 caps 6RF Coding Level of Care Code Est Pt Level 4 (77130) Diagnoses Tardive dyskinesia G24.01 Obstructive sleep apnea of adult G47.33
[2023-10-31 10:27] VITALS: BP 108/62; PULSE 76; RESP 17; O2SAT 98; BMI 36.6
== END 2023-10-31 11:03 | disposition home or self-care (01) ==
PROVIDERS: PCP Nurse Practitioner Family; Visit Provider Psychiatry & Neurology Neurology
DX: G24.01 Drug induced subacute dyskinesia (principal); G47.33 Obstructive sleep apnea (adult) (pediatric)
CPT/HCPCS: 99214

== ENCOUNTER → 2023-10-31 10:23 | Outpatient (BNVA) | payer MEDICARE, SELFPAY | PROVIDERS: PCP Nurse Practitioner Family; Visit Provider Psychiatry & Neurology Neurology | DX: G24.01 Drug induced subacute dyskinesia (principal); G47.33 Obstructive sleep apnea (adult) (pediatric) | CPT/HCPCS: 99212 ==

== ENCOUNTER 2023-11-19 15:42 | Outpatient (REF) | payer MEDICARE, SELFPAY ==
--- NOTE | ~2023-11-19 | US_ITS ---
EXAMINATION: US VENOUS ULTRASOUND WITH DOPPLER LOWER EXTREMITY, LEFT CLINICAL INFORMATION: Evaluate for DVT COMPARISON: None available. TECHNIQUE: Ultrasound of the deep veins is performed from the hip to the calf with compression sonography and color and pulse Doppler assessment. Spectral analysis with color-flow imaging is performed. FINDINGS: There is normal venous compression and respiratory variation and augmented flow. The visualized common femoral vein, superficial femoral vein, profunda femoral vein, popliteal vein, and the trifurcation region shows no evidence of deep venous thrombosis. There is no significant popliteal fossa cyst. Within the left groin are morphologically benign-appearing lymph nodes measuring up to 7 mm in short axis. If the patient's symptoms persist, followup ultrasound in 5 days 7 days might be of value to exclude proximal propagation from a non-visualized calf vein. US/US venous duplex LE LT IMPRESSION: 1. No DVT demonstrated in the left lower extremity. 2. Within the left groin are morphologically benign-appearing lymph nodes measuring up to 7 mm in short axis.
== END 2023-11-19 15:43 | disposition home or self-care (01) ==
LOC: HO.US 15:42
PROVIDERS: Visit Provider Nurse Practitioner Family
DX: M79.89 Other specified soft tissue disorders (principal)
CPT/HCPCS: 93971

== ENCOUNTER 2023-12-14 15:19 | Emergency (ER) | payer MEDICARE, SELFPAY ==
--- NOTE | ~2023-12-14 | CT_ITS ---
EXAMINATION: CT HEAD WITHOUT CONTRAST (STROKE PROTOCOL) CLINICAL INFORMATION: Stroke protocol. COMPARISON: Head CT on 03/23/2022 TECHNIQUE: Contiguous axial imaging was performed from the skull base to vertex without intravenous administration of contrast. This CT examination was performed using dose optimization techniques as appropriate, variously including the following: *Automated exposure control *Adjustment of mA and/or kV according to patient size (this includes techniques or standardized protocols for targeted exams where dose is matched to indication/reason for exam; i.e. extremities or head) *Use of iterative reconstruction technique DLP: 1480 mGy-cm FINDINGS: There is no evidence of acute intracranial hemorrhage, acute large vessel infarct, midline shift or mass effect. The wright-white differentiation is preserved. The ventricles and sulci are within normal limits in size and configuration. There is no evidence of hydrocephalus. There are no extraaxial collections. Osseous structures are intact. Paranasal sinuses and mastoid air cells are well aerated. CT/CT head for stroke IMPRESSION: No acute intracranial pathology. This critical result was discussed with Leydi Dillard at 1558 hours on 12/14/23. It was ascertained that the content and urgency of the report was understood at the time of direct communication.
--- NOTE | ~2023-12-14 | CT_ITS ---
EXAMINATION: CT ANGIOGRAM HEAD CT ANGIOGRAM NECK CLINICAL INFORMATION: Word finding difficulties. COMPARISON: CT head from 12/14/2023. TECHNIQUE: Initial noncontrast packing house supervisor imaging of the head and neck was performed. Comparison is made with noncontrast head CT from earlier today. Test bolus sequences followed by intravenous administration 70 mL of Omnipaque 350. Helical imaging was performed in the axial plane from the aortic arch to the skull vertex. Delayed postcontrast imaging of the head was also performed. The data was processed at the nuclear medicine pet ct technologist's workstation for generation of MIP sequences. Angled MIPs and volume rendered reformatted images were also generated at an offline 3D workstation. Stenoses are assessed in accordance with NASCET criteria unless otherwise indicated. This CT examination was performed using dose optimization techniques as appropriate, variously including the following: *Automated exposure control. *Adjustment of mA and/or kV according to patient size (this includes techniques or standardized protocols for targeted exams where dose is matched to indication/reason for exam; i.e. extremities or head). *Use of iterative reconstruction technique. DLP: 2031 mGy-cm FINDINGS: CT Head: There is no evidence of acute intracranial hemorrhage or edematous territorial infarction. Crespo-white matter differentiation is preserved. A few foci of hypoattenuation in the periventricular and deep white matter are consistent with mild microangiopathy. Proportional prominence of the ventricles and sulcal spaces without evidence of obstructive hydrocephalus. No abnormal mass effect or midline shift. No extra-axial fluid collections. No pathologic intra-axial enhancement. No acute soft tissue or osseous abnormalities. Mild mucosal thickening of the paranasal sinuses. The mastoid air cells and middle ear cavities are clear. CT Neck: The thyroid gland and remaining cervical soft tissues are within normal limits. Straightening of the normal cervical lordosis. Moderate degenerative disc disease at C5-C6. Mild degenerative disc disease at all additional levels. Facet and uncovertebral joint arthropathy leads to osseous encroachment on the neural foramina at C5-C6. CT Upper Chest: The visualized lung apices and upper mediastinum are within normal limits. Neck CTA: Aortic Arch: Normal contour and caliber with mild calcific atherosclerotic disease. Classic 3 vessel branching pattern of the aortic arch. Great Vessel Origins: No significant stenosis of the branch origins. Right Common Carotid Artery: No focal stenosis or occlusion. Cervical Right Internal Carotid Artery: Normal opacification without focal stenosis or occlusion. Left Common Carotid Artery: No focal stenosis or occlusion. Cervical Left Internal Carotid Artery: Normal opacification without focal stenosis or occlusion. Cervical Right Vertebral Artery: No focal stenosis or occlusion. Cervical Left Vertebral Artery: Dominant. No focal stenosis or occlusion. Brain CTA: Intracranial Internal Carotid Arteries: Calcific atherosclerotic disease of the intracranial internal carotid arteries without occlusion or flow-limiting stenosis. Right Anterior Cerebral Artery: Normal A1 segment. Normal opacification of the distal PA segments. Left Anterior Cerebral Artery: Normal A1 segment. Normal opacification of the distal PA segments. Anterior Communicating Artery: Normal. Right Middle Cerebral Artery: Normal M1 segment of the MCA without focal stenosis or occlusion. Normal arborization of the distal segments. Left Middle Cerebral Artery: Normal M1 segment of the MCA without focal stenosis or occlusion. Normal arborization of the distal segments. Right Vertebral Artery: The V4 segment largely terminates as the posterior inferior cerebellar artery. Left Vertebral Artery: Normal V4 segment. The posterior inferior cerebellar artery is not well opacified; however, there is no CT evidence of acute occlusion. Basilar Artery: Normal without focal stenosis or occlusion. Normal appearance of the proximal superior cerebellar arteries. Right Posterior Cerebral Artery: Normal P1 segment. Normal opacification of the distal MARKETING STRATEGIST segments. Left Posterior Cerebral Artery: Normal P1 segment. Normal opacification of the distal MARKETING STRATEGIST segments. Normal opacification of the superior sagittal, straight, transverse, and sigmoid sinuses. CT/CT angio head neck stroke IMPRESSION: 1. No evidence of acute intracranial hemorrhage or edematous territorial infarction. Mild underlying microangiopathy and generalized cerebral volume loss. 2. CTA of the head and neck without proximal occlusion or flow-limiting stenosis.
--- NOTE | ~2023-12-14 | XR_ITS ---
EXAMINATION: XR CHEST CLINICAL INFORMATION: Shortness of breath COMPARISON: Chest radiograph 10/04/2018 TECHNIQUE: Frontal view of the chest was obtained. FINDINGS: No significant abnormality is noted involving the heart, lungs, mediastinum, bony thorax or soft tissues. XR/XR chest 1V IMPRESSION: Unremarkable examination.
--- NOTE | 2023-12-14 15:33 | ECG_ITS ---
Test Reason : stroke symptoms Blood Pressure : / mmHG Vent. Rate : 069 BPM Atrial Rate : 069 BPM P-R Int : 180 ms QRS Dur : 078 ms QT Int : 436 ms P-R-T Axes : 055 006 050 degrees QTc Int : 467 ms Normal sinus rhythm Normal ECG When compared to the previous EKG of No significant changes seen Referred By: Kelin Dillard Electronically Signed By:Matthew Franco
[2023-12-14 15:35] VITALS: BP 145/77; PULSE 74
--- NOTE | 2023-12-14 15:38 | ED_ITS ---
HPI - Neuro Symptoms/Deficit General Chief Complaint: Stroke Stated Complaint: Not feeling well, dizzy, AMS? Time Seen by Provider: 12/14/23 15:35 History of Present Illness HPI Narrative: Patient is 68 years old has a history of obstructive sleep apnea history of sciatica. Patient has a history of hyperlipidemia. History of chronic pain. No history of diabetes. Positive history of smoking. No history of ME. patient has been feeling sweaty in the heat feels lightheaded as it is hot today. She was going to work after sweating profusely. Feel lightheaded. Had a delay in finding the right words. Patient can pronounced the right word can find the right words but seems a little slower than usual. On arrival patient's symptom has mostly resolved. Patient denies any focal weakness. Denies any difficulty difficulty with words. Feels it is still somewhat harder to get the words out. No focal weakness in the arms and legs. No history of similar symptoms like this in the past. Patient is from home. Related Data Home Medications ?Medication ?Instructions ?Recorded ?Confirmed bupropion HCl 300 mg 24 hr tablet, 300 mg PO DAILY 04/07/20 10/31/23 extended release lorazepam 1 mg tablet 0.5 mg PO BID PRN Anxiety 04/07/20 10/31/23 duloxetine 30 mg capsule,delayed 30 mg PO QAM 06/14/21 10/31/23 release bupropion HCl 150 mg 24 hr tablet, 150 mg PO QAM 09/19/23 10/31/23 extended release duloxetine 60 mg capsule,delayed 60 mg PO DAILY 09/19/23 10/31/23 release Previous Rx's ?Medication ?Instructions ?Recorded albuterol sulfate 90 mcg/actuation 2 puff inhalation Q4-6H PRN 01/02/23 aerosol inhaler (Ventolin HFA) shortness of breath or wheezing #8.5 grams omeprazole 40 mg capsule,delayed 40 mg PO DAILY 90 days #90 caps 08/20/23 release bisacodyl 5 mg tablet,delayed 20 mg (4 x 5 mg) PO ONCE PRN 09/19/23 release (Dulcolax (bisacodyl)) colonoscopy prep 1 day #4 tabs peg 3350 240 gram-electrolytes 240 ml PO Q10M #4,000 mL 09/19/23 22.72 gram-6.72 g-5.84 g powdr for soln simethicone 125 mg chewable tablet 125 mg PO DIRECTED PRN 09/19/23 (Gas Relief (simethicone)) abdominal distention #20 tabs atorvastatin 20 mg tablet 20 mg PO DAILY 90 days #90 tabs 10/16/23 gabapentin 100 mg capsule 100 mg PO BEDTIME #30 caps 10/31/23 prednisone 50 mg tablet 50 mg PO DAILY 7 days #7 tabs 11/19/23 Allergies Allergy/AdvReac Type Severity Reaction Status Date / Time No Known Allergies Allergy Verified 12/14/23 16:35 [No Known Allergies*] Review of Systems 2 Review of Systems: No fever no chills no chest pain or shortness of breath no diaphoresis Yes all other systems are reviewed and are negative [facility] Past Medical History Attestation statement: The following information was validated with the patient. Medical History Obstructive sleep apnea of adult Tardive dyskinesia Swelling of knee joint, left Arthritis SVT (supraventricular tachycardia) Sleep apnea GERD (gastroesophageal reflux disease) Elevated cholesterol Depression with anxiety Chronic pain syndrome Sacroiliitis Surgical History Hx of hand surgery Hx of rotator cuff surgery H/O colonoscopy History of cardiac radiofrequency ablation (RFA) Family History Family History Father Mental health disorder Paternal Grandfather Mental health disorder Daughter Mental health disorder Social History Social History Household Members Other:: daughter Housing: House Are you a primary transition of care specialist to a significant other at home: No Do you presently have visiting nurse or other home services: No Patient Tobacco Use Status: Current everyday Tobacco user Tobacco use type: Cigarette Cigarettes Per Day: 2 Years Smoked: 40 e-Cigarette/Vaping Use: Never Used Second Hand Smoke Exposure: No Advance Directives: No Advance Directives Information Provided: Yes service: No Current occupational status: retired Current occupation: works part [employer] Current occupational exposures/hazards: No Cognitive needs: No Hearing needs: No Vision needs: Yes Physical Exam 2 Vital Signs: Vital Signs: Last Vital Signs Temp 98.3 F 12/14/23 18:24 Pulse 65 12/14/23 18:24 Resp 13 12/14/23 18:24 BP 110/53 L 12/14/23 18:24 Pulse Ox 98 12/14/23 18:24 O2 Del Method Room Air 12/14/23 18:24 BMI result Body Mass Index 34.5 Appearance: Alert. Oriented X3. No acute distress. Eyes: Pupils equal, round and reactive to light. ENT: Pharynx normal. Neck: Normal inspection. Neck supple. No lymph nodes noted. No crepitus CVS: Normal heart rate and rhythm. Pulses normal. Normal S1 and S2 Respiratory: No respiratory distress. Breath sounds normal. No Wheezing. No rales Abdomen: Soft and nontender. No rigidity. No distention. good BS x4 Skin: Skin warm and dry. Normal skin color. Normal skin turgor. Extremities: No lower extremity edema. Neurovascular intact to all extremities. No Lacerations. No Rash Neuro: Oriented X 3. No motor deficit. No sensory deficit. Moving all extermities. No slurred speech Medications Administered Discontinued Medications Generic Name Dose Route Start Last Admin Trade Name Freq PRN Reason Stop Dose Admin Iohexol 70 ml 12/14/23 16:12 12/14/23 16:12 Iohexol 350 Mg/Ml 100 Ml Infus..Btl IV 12/14/23 16:13 70 ml ONCE ONE Administration Medical Decision Making Medical Decision Making [facility] Narrative: A stroke alert was called on patient's arrival. CT scan of the head by my interpretation was grossly negative for any acute evidence of bleeding. CTA of the head and neck showed no large vessel occlusion. Patient's labs are still pending at this point. My interpretation patient's chest x-ray was negative for infiltrates. Repeat the exam patient's NIH stroke scale was 0 0 she is answering questions appropriately she is moving all arms and legs. Has no difficulty finding words. Question heat related. In stable condition awaiting additional labs. Differential Diagnosis Differential Diagnoses: The differential diagnosis associated with the presentation includes CVA TIA, heat related UTI electrolyte issues Admission/Observation Consideration of admission/observation: Escalation of care including admission/observation considered Lab Data [facility] Lab Attestation statement: I reviewed the patient's lab results. 12/14/23 16:46 12/14/23 17:41 Labs: Lab Results 12/14/23 12/14/23 12/14/23 Range/Units 16:39 16:46 17:41 WBC 7.2 (4.8-10.8) X10*3/uL RBC 4.40 (4.20-5.50) X10*6/uL Hgb 13.9 (12.0-16.0) g/dl Hct 41.2 (37.0-47.0) % MCV 93.6 (80.0-98.0) fL MCH 31.6 (27.0-33.0) pg MCHC 33.7 (31.0-35.0) g/dl RDW 12.6 (11.0-16.0) % Plt Count 253 (160-400) X10*3/uL MPV 10.6 (9.4-12.3) fL Immature Gran % (Auto) 0.3 (0.0-0.4) % Neut % (Auto) 58.0 (45-73) % Lymph % (Auto) 29.8 (20-40) % [place] % (Auto) 8.6 (2-11) % Eos % (Auto) 2.5 (0-4) % Baso % (Auto) 0.8 (0-2) % Lymph # (Auto) 2.2 (1.2-4.9) X10*3/uL [place] # (Auto) 0.6 (0.1-1.2) X10*3/uL Eos # (Auto) 0.2 (0.0-0.4) X10*3/uL Baso # (Auto) 0.1 (0.0-0.2) X10*3/uL Abs Immat Gran (auto) 0.02 (0.00-0.03) X10*3/uL Absolute Neuts (auto) 4.2 (2.0-8.3) x10*3/uL Absolute Nucleated RBC 0.000 (0.0-0.012) X10*3/uL Nucleated RBC % (auto) 0.0 (0.0-0.2) /100WBC PT 10.5 L (11.1-13.3) SEC Whole Blood PT (11.1-13.5) sec INR 0.9 (0.9-1.1) Whole Blood INR (0.9-1.1) APTT 36.5 (26.0-36.8) SEC Sodium 139 (135-145) mmol/L Potassium 3.8 (3.3-5.1) mmol/L Chloride 105 (96-108) mmol/L Carbon Dioxide 26 (22-29) mmol/L Anion Gap 12 (12-20) BUN 20 H (9-16) mg/dL Creatinine 0.89 (0.5-1.4) mg/dL Estim Creat Clear Calc 72.9 Estimated GFR > 60 POC Glucose 80 (60-115) mg/dL Random Glucose 83 (60-115) mg/dL Calcium 9.1 (8.4-10.2) mg/dL Phosphorus 3.4 (2.7-4.5) mg/dL Magnesium 2.2 (1.6-2.6) mg/dL Total Bilirubin 0.5 (0.0-1.0) mg/dL Direct Bilirubin 0.2 (0.0-0.5) mg/dL AST 29 (5-31) U/L ALT 31 (0-31) U/L Alkaline Phosphatase 74 (39-117) U/L Total Creatine Kinase 98 (26-140) U/L Troponin I High Sens < 2.7 (<3.5-17.0) ng/L Total Protein 6.8 (6.5-8.0) g/dL Albumin 3.9 (3.5-5.0) g/dL TSH 3.09 (0.32-4.0) uIU/mL Urine Color Yellow Urine Appearance Clear Urine pH 7.0 (5.0-9.0) Ur Specific [place] >= 1.030 H (1.005-1.025) Urine Protein Negative (Neg-Trace) mg/dL Urine Glucose (UA) Negative (Negative) mg/dL Urine Ketones Negative (Negative) mg/dL Urine Blood Negative (Negative) Urine Nitrite Negative (Negative) Ur Leukocyte Esterase Negative (Negative) 12/14/23 Range/Units 18:03 WBC (4.8-10.8) X10*3/uL RBC (4.20-5.50) X10*6/uL Hgb (12.0-16.0) g/dl Hct (37.0-47.0) % MCV (80.0-98.0) fL MCH (27.0-33.0) pg MCHC (31.0-35.0) g/dl RDW (11.0-16.0) % Plt Count (160-400) X10*3/uL MPV (9.4-12.3) fL Immature Gran % (Auto) (0.0-0.4) % Neut % (Auto) (45-73) % Lymph % (Auto) (20-40) % [place] % (Auto) (2-11) % Eos % (Auto) (0-4) % Baso % (Auto) (0-2) % Lymph # (Auto) (1.2-4.9) X10*3/uL [place] # (Auto) (0.1-1.2) X10*3/uL Eos # (Auto) (0.0-0.4) X10*3/uL Baso # (Auto) (0.0-0.2) X10*3/uL Abs Immat Gran (auto) (0.00-0.03) X10*3/uL Absolute Neuts (auto) (2.0-8.3) x10*3/uL Absolute Nucleated RBC (0.0-0.012) X10*3/uL Nucleated RBC % (auto) (0.0-0.2) /100WBC PT (11.1-13.3) SEC Whole Blood PT 10.5 L (11.1-13.5) sec INR (0.9-1.1) Whole Blood INR 0.9 (0.9-1.1) APTT (26.0-36.8) SEC Sodium (135-145) mmol/L Potassium (3.3-5.1) mmol/L Chloride (96-108) mmol/L Carbon Dioxide (22-29) mmol/L Anion Gap (12-20) BUN (9-16) mg/dL Creatinine (0.5-1.4) mg/dL Estim Creat Clear Calc Estimated GFR POC Glucose (60-115) mg/dL Random Glucose (60-115) mg/dL Calcium (8.4-10.2) mg/dL Phosphorus (2.7-4.5) mg/dL Magnesium (1.6-2.6) mg/dL Total Bilirubin (0.0-1.0) mg/dL Direct Bilirubin (0.0-0.5) mg/dL AST (5-31) U/L ALT (0-31) U/L Alkaline Phosphatase (39-117) U/L Total Creatine Kinase (26-140) U/L Troponin I High Sens (<3.5-17.0) ng/L Total Protein (6.5-8.0) g/dL Albumin (3.5-5.0) g/dL TSH (0.32-4.0) uIU/mL Urine Color Urine Appearance Urine pH (5.0-9.0) Ur Specific [place] (1.005-1.025) Urine Protein (Neg-Trace) mg/dL Urine Glucose (UA) (Negative) mg/dL Urine Ketones (Negative) mg/dL Urine Blood (Negative) Urine Nitrite (Negative) Ur Leukocyte Esterase (Negative) Independent Interpretation I performed an independent interpretation of an: CT Scan (CT head negative for any acute evidence of bleeding) Radiology Impression Discussion of test interpretation with radiology: I have reviewed the radiologist's reading. NIH Stroke Scale Time: 15:41 Level of Consciousness: Alert Level of Consciousness Questions: Answers both questions correctly Level of Consciousness Commands: Performs both tasks correctly Best Gaze: Normal Visual: No visual loss Facial Palsy: Normal Motor Arm (Right): No drift Motor Arm (Left): No drift Motor Leg (Right): No drift Motor Leg (Left): No drift Limb Ataxia: Absent Sensory: Normal Best Language: No aphasia Dysarthia: Normal Extinction and Inattention: No abnormality Score: 0 Discharge Plan Discharge Clinical Impression: Heat exhaustion Patient Disposition: Home, Self-Care Instructions: Heat Exhaustion (ED) Additional Instructions: Your symptoms likely from heat exhaustion Workup negative for stroke Drink plenty of fluids and stay in shaded area Follow with PCP if any concerns Prescriptions: No Action albuterol sulfate [Ventolin HFA] 90 mcg/actuation HFA aerosol inhaler 2 puff inhalation Q4-6H PRN (Reason: shortness of breath or wheezing) Qty: 8.5 5RF omeprazole 40 mg capsule,delayed release(DR/EC) 40 mg PO DAILY 90 Days Qty: 90 1RF atorvastatin 20 mg tablet 20 mg PO DAILY 90 Days Qty: 90 1RF prednisone 50 mg tablet 50 mg PO DAILY 7 Days Qty: 7 0RF duloxetine 30 mg capsule,delayed release(DR/EC) 30 mg PO QAM Rx Instructions: take with 60 mg dose to equal 90 mg bupropion HCl 300 mg tablet extended release 24 hr 300 mg PO DAILY lorazepam 1 mg tablet 0.5 mg PO BID PRN (Reason: Anxiety) duloxetine 60 mg capsule,delayed release(DR/EC) 60 mg PO DAILY bupropion HCl 150 mg tablet extended release 24 hr 150 mg PO QAM bisacodyl [Dulcolax (bisacodyl)] 5 mg tablet,delayed release (DR/EC) 20 mg PO ONCE PRN (Reason: colonoscopy prep) 1 Days Qty: 4 0RF Rx Instructions: Day before procedure @ 12 noon Take 4 tablets by mouth followed by large glass of water simethicone [Gas Relief (simethicone)] 125 mg tablet,chewable 125 mg PO DIRECTED PRN (Reason: abdominal distention) Qty: 20 0RF peg 3350-electrolytes 240-22.72-6.72 -5.84 gram recon soln 240 ml PO Q10M Qty: 4000 0RF Rx Instructions: until fecal effluent is clear gabapentin 100 mg capsule 100 mg PO BEDTIME Qty: 30 6RF Print Language: Taiwanese
[2023-12-14] MEDS: iohexoL 350 MG/ML 100 ML INFUS..BTL 70 ML IV (16:12)
[2023-12-14 16:33] VITALS: BP 135/71; PULSE 68; RESP 18; O2SAT 98; BMI 34.5
[2023-12-14 16:40] VITALS: BP 135/71; PULSE 68; RESP 18; O2SAT 97
[2023-12-14 16:49] LABS: Glucose, Whole Blood 80 mg/dL (60-115)
[2023-12-14 16:51] LABS: MANUAL DIFF FLAG NO
[2023-12-14 16:55] LABS: Basophils Absolute Auto 0.1 X10*3/uL (0.0-0.2); Basophils Percent Auto 0.8 % (0-2); Eosinophils Absolute Auto 0.2 X10*3/uL (0.0-0.4); Eosinophils Percent Auto 2.5 % (0-4); Hematocrit 41.2 % (37.0-47.0); Hemoglobin 13.9 g/dl (12.0-16.0); Imm Gran Abs Auto 0.02 X10*3/uL (0.00-0.03); Imm Gran Pct Auto 0.3 % (0.0-0.4); Lymphocytes Absolute Auto 2.2 X10*3/uL (1.2-4.9); Lymphocytes Percent Auto 29.8 % (20-40); Mean Corpuscular HGB Conc 33.7 g/dl (31.0-35.0); Mean Corpuscular Hemoglobin 31.6 pg (27.0-33.0); Mean Corpuscular Volume 93.6 fL (80.0-98.0); Mean Platelet Volume 10.6 fL (9.4-12.3); Monocytes Absolute Auto 0.6 X10*3/uL (0.1-1.2); Monocytes Percent Auto 8.6 % (2-11); Neutrophils Absolute Auto 4.2 x10*3/uL (2.0-8.3); Platelet Count 253 X10*3/uL (160-400); Red Cell Distribution Width 12.6 % (11.0-16.0); White Blood Count 7.2 X10*3/uL (4.8-10.8)
[2023-12-14 17:06] LABS: INTERNATIONAL NORM RATIO 0.9 (0.9-1.1); Prothrombin Time 10.5 SEC (11.1-13.3)
[2023-12-14 17:08] LABS: Partial Thromboplastin Time 36.5 SEC (26.0-36.8)
[2023-12-14 17:26] LABS: Troponin-I High Sensitivity < 2.7 ng/L (<3.5-17.0)
[2023-12-14 17:54] LABS: Appearance Urine Clear; Color Urine Yellow; Glucose Urine UA Negative (Negative); Leukocyte Esterase Urine Negative (Negative); Nitrite Urine Negative (Negative); Specific Gravity - Urine >= 1.030 (1.005-1.025); Urine Blood Negative (Negative); Urine Ketones Negative (Negative); Urine Protein Negative (Neg-Trace)
[2023-12-14 18:13] LABS: Stroke Lab Use COMPLETE
--- NOTE | 2023-12-14 18:14 | PC.NURSE ---
Alert and oriented, reports feeling better, with patients permission daughter updated on current condition.
[2023-12-14 18:16] LABS: Alanine Aminotransferase 31 U/L (0-31); Albumin Level 3.9 g/dL (3.5-5.0); Alkaline Phosphatase 74 U/L (39-117); Anion Gap 12 (12-20); Aspartate Amino Transferase 29 U/L (5-31); Bilirubin Direct 0.2 mg/dL (0.0-0.5); Bilirubin Total 0.5 mg/dL (0.0-1.0); Blood Urea Nitrogen 20 mg/dL (9-16); Calcium 9.1 mg/dL (8.4-10.2); Carbon Dioxide 26 mmol/L (22-29); Chloride 105 mmol/L (96-108); Creatinine Clr Calc Pharmacy 72.9; Estimated Glomerular Filt Rate > 60; Glucose Random 83 mg/dL (60-115); Magnesium 2.2 mg/dL (1.6-2.6); Phosphorus 3.4 mg/dL (2.7-4.5); Potassium 3.8 mmol/L (3.3-5.1); Sodium 139 mmol/L (135-145); Total Protein 6.8 g/dL (6.5-8.0)
[2023-12-14 18:24] VITALS: BP 110/53; PULSE 65; RESP 13; TEMP 36.8; O2SAT 98
[2023-12-14 18:30] LABS: Thyroid Stimulating Hormone 3.09 uIU/mL (0.32-4.0)
[2023-12-14 18:48] LABS: Prothrombin Time Whole Bld POC 10.5 sec (11.1-13.5); ~PT, ~INR - Anti Coag Clinic 0.9 (0.9-1.1)
[2023-12-14 19:37] VITALS: BP 118/57; PULSE 66; RESP 14; TEMP 36.4; O2SAT 97
== END 2023-12-14 19:17 | disposition home or self-care (01) ==
PROVIDERS: Emergency Provider Emergency Medicine Emergency Medical Services; PCP Nurse Practitioner Family
DX: T67.5XXA Heat exhaustion, unspecified, initial encounter (principal); X30.XXXA Exposure to excessive natural heat, initial encounter; R42 Dizziness and giddiness; E78.5 Hyperlipidemia, unspecified; G89.4 Chronic pain syndrome; F17.210 Nicotine dependence, cigarettes, uncomplicated; Y93.9 Activity, unspecified; Y92.9 Unspecified place or not applicable; Y99.9 Unspecified external cause status; R06.02 Shortness of breath
CPT/HCPCS: 36415; 70450; 70496; 70498; 71045; 80048; 80076; 81003; 82550; 82947; 83735; 84100; 84443; 84484; 85025; 85610; 85730; 93005; 99284; 99285; Q9967

== ENCOUNTER → 2023-12-14 15:33 | Outpatient (BNV) | payer MEDICARE, SELFPAY | PROVIDERS: Emergency Provider Emergency Medicine Emergency Medical Services; PCP Nurse Practitioner Family; Visit Provider Internal Medicine Cardiovascular Disease | DX: T67.5XXA Heat exhaustion, unspecified, initial encounter (principal) | CPT/HCPCS: 93010 ==

== ENCOUNTER 2023-12-30 08:46 | Outpatient (AMB) | payer MEDICARE, SELFPAY ==
--- NOTE | 2023-12-30 08:54 | AM.OFFVISMDC ---
Intake Vital Signs 12/30/23 08:56 Height 5 ft 6 in Weight 210 lb BMI 33.9 BP 118/76 Blood Pressure Location Rt brachial Position Sitting Pulse 77 Pulse Source Pulse Oximeter Pulse Oximetry (%) 98 Oxygen Delivery Method Room Air Intake Visit Reasons: AWV G0439 Intake Note: Patient here for AWV Allergies No Known Allergies [No Known Allergies*] Allergy (Verified 12/30/23 08:57) Do you need a note to return to daycare/school/sports/work: No HPI AWV G0439 HPI Details pt is here for a AWV. Mammo i will schedule. Colon screen is scheduled. PPP in scan pile, checklist in scan pile PFSH Medical History Obstructive sleep apnea of adult Tardive dyskinesia Swelling of knee joint, left Arthritis SVT (supraventricular tachycardia) Sleep apnea GERD (gastroesophageal reflux disease) Elevated cholesterol Depression with anxiety Chronic pain syndrome Sacroiliitis Surgical History Hx of hand surgery Hx of rotator cuff surgery H/O colonoscopy History of cardiac radiofrequency ablation (RFA) Family History Father Mental health disorder Paternal Grandfather Mental health disorder Daughter Mental health disorder Social History Household Members Other:: daughter Housing: House Are you a primary day care provider to a significant other at home: No Do you presently have visiting nurse or other home services: No Patient Tobacco Use Status: Current everyday Tobacco user Tobacco use type: Cigarette Cigarettes Per Day: 2 Years Smoked: 40 e-Cigarette/Vaping Use: Never Used Second Hand Smoke Exposure: No service: No Current occupational status: retired Current occupation: works part [employer] Current occupational exposures/hazards: No Cognitive needs: No Hearing needs: No Vision needs: Yes Questionnaire Medicare Wellness Checkup [age] What gender do you identify with?: female During the past 4 weeks, how much have you been bothered by emotional problems such as feeling anxious, depressed, irritable, sad or downhearted, and blue?: moderately During the past 4 weeks, has your physical & emotional health limited your social activities with family, friends, neighbors, or groups?: slightly During the past 4 weeks, how much bodily pain have you generally had?: moderate pain During the past 4 weeks, was someone available to help you if you needed & wanted help?: yes, as much as I wanted During the past 4 weeks, what was the hardest physical activity you could do for at least 2 minutes?: moderate Can you get to places out of walking distance without help? (For eg., can you travel alone on buses, taxis or drive your car?): Yes Can you go shopping for groceries or clothes without someone's help?: Yes Can you prepare your own meals?: Yes Can you do your housework without help?: Yes Because of any health problems, do you need the help of another person with your personal care needs such as eating, bathing, dressing or getting around the house?: No Can you handle your own money without help?: Yes During the past 4 weeks, how would you rate your health in general?: good During the past 4 weeks how have things been going for you?: good & bad parts about equal Are you having difficulties driving your car?: no Do you always fasten your seat belt when you are in a car?: yes, usually During past 4 weeks, have you been bothered by the following: never: Falling or dizzy when standing up, Sexual problems?, Trouble eating well?, Teeth or denture problems?, Problems using the telephone? and Tiredness or fatigue? Have you fallen 2 or more times in the past year?: No Are you afraid of falling?: Yes Are you a smoker?: yes, and I might quit During the past 4 weeks, how many drinks of wine, beer, or other alcoholic beverages did you have?: no alcohol at all Do you exercise for about 20 minutes 3 or more times a week?: yes, some of the time Have you been given information to help with the following?: no: Hazards in your house that might hurt you? and no: Keeping track of your medications? How often do you have trouble taking medicines the way you have been told to take them?: I always take medicine as prescribed How confident are you that you can control & manage most of your health problems?: somewhat confident What is your race?: White Mini Mental State Exam (MMSE) Orientation Where are we (state) (county) (town or city) (hospital) (floor)?: state, county, town or city and floor Registration Name of 3 unrelated objects clearly and slowly, then ask patient to repeat all 3 of them. (1st repeat determines score. Make sure they can repeat all three): object 1, object 2 and object 3 Attention & Calculation (CHOOSE ONE) Spell WORLD backwards (DLROW): 5 letters Recall Ask patient to repeat the 3 items from question #3.: object 1, object 2 and object 3 Language Show patient a wristwatch & ask what it is. Repeat for pencil.: watch and pencil Ask the patient to repeat the phrase 'No ifs, ands, or buts' after you.: correct Ask the patient to 'take a piece of paper with their right hand' 'fold paper in half' 'place paper on floor': take paper in right hand, fold paper in half and place paper on floor Print the sentence 'CLOSE YOUR EYES' on a piece. If patient actually closes eyes then score.: followed written direction Give patient a blank piece of paper & ask to write a sentence. Score if it contains a noun & verb.: sentence contains subject and verb Ask patient to copy figure of intersecting pentagons exactly. Score if all 10 angles & 2 intersects are included.: all 10 angles present & 2 are intersected Score Score: 24 Activity of Daily Living Bathing - sponge bath, tub bath or shower: receives no assistance (gets in/out by self, if usual bathing means Dressing - getting clothes from closets & drawers, including inner/outer garments & fasteners.: gets clothes & gets completely dressed without help Toileting - going to the 'toilet room' for urine/bowel elimination & cleaning self/arranging clothes: goes to toilet room, cleans self, arranges clothes without help Transfer: moves in & out of bed and chair without help (may use support object) Continence: controls urination/bowel movements completely by self Feeding: feeds self without help Total Score: 0 Information obtained from: patient Using telephone: independent Traveling: independent Shopping: independent Preparing meals: independent Housework: independent Taking medicine: independent Managing money: independent PHQ-9 Over the last 2 weeks, how often have you been bothered by any of the following problems? 1. Little interest or pleasure in doing things: nearly every day 2. Feeling down, depressed, or hopeless: more than half the days 3. Trouble falling or staying asleep, or sleeping too much: several days 4. Feeling tired or having little energy: more than half the days 5. Poor appetite or overeating: more than half the days 6. Feeling bad about yourself - or that you are a failure or have let yourself or your family down: more than half the days 7. Trouble concentrating on things, such as reading the newspaper or watching television: several days 8. Moving or speaking so slowly that other people could have noticed. Or the opposite - being so fidgety or restless that you have been moving around a lot more than usual: not at all 9. Thoughts that you would be better off or of hurting yourself in some way: several days Total score: 14 Source: Developed by Drs. Callum Valdivia, Sarah Roberts, Jaime Harrison and colleagues, with an educational sigrid from [employer]. Physical Exam Vital Signs: Last Vital Signs Pulse 77 12/30/23 08:56 BP 118/76 12/30/23 08:56 Pulse Ox 98 12/30/23 08:56 Oxygen Delivery Method Room Air 12/30/23 08:56 BMI result Body Mass Index 33.9 Neuro Other: neg rhomberg, able to get up from seated position, - whisper test, able to tandem walk Assessment & Plan Assessment & Plan (1) Smoker: Code(s): F17.200 - Nicotine dependence, unspecified, uncomplicated Plan: referred for LDCTs (2) Vitamin D deficiency: Code(s): E55.9 - Vitamin D deficiency, unspecified Plan: checking levels (3) Postmenopausal: Code(s): Z78.0 - Asymptomatic menopausal state Plan: ordered a bone density (4) Encounter for subsequent annual wellness visit (AWV) in Medicare patient: Code(s): Z00.00 - Encounter for general adult medical examination without abnormal findings Plan: done Orders: Orders Vitamin D 25-OH Total Today E55.9 - Vitamin D deficiency, unspecified XR DEXA axial skeleton Today E55.9 - Vitamin D deficiency, unspecified, Z78.0 - Asymptomatic menopausal state TSH reflex Free T4 Today E78.5 - Hyperlipidemia, unspecified, F17.200 - Nicotine dependence, unspecified, uncomplicated UA CC w/rflx Micro + Cult Today E78.5 - Hyperlipidemia, unspecified, F17.200 - Nicotine dependence, unspecified, uncomplicated MM screening mammo BI Today Z12.31 - Encounter for screening mammogram for malignant neoplasm of breast Complete Blood Count Auto Diff Today E78.5 - Hyperlipidemia, unspecified, F17.200 - Nicotine dependence, unspecified, uncomplicated Comprehensive [place]. Panel Fast Today E78.5 - Hyperlipidemia, unspecified, F17.200 - Nicotine dependence, unspecified, uncomplicated Lipid Panel Today E78.5 - Hyperlipidemia, unspecified, F17.200 - Nicotine dependence, unspecified, uncomplicated Referrals Lung Cancer Screening Referral F17.200 - Nicotine dependence, unspecified, uncomplicated Quality Reporting (2019) Depression/Bipolar (159/160/161/177) PHQ-9: Total score: 14 Coding Level of Care Code Medicare Subsequent (G0439) Diagnoses Smoker F17.200 Vitamin D deficiency E55.9 Postmenopausal Z78.0 Encounter for subsequent annual wellness visit (AWV) in Medicare patient Z00.00 CPT Codes Advance Care Planning - Time spent: 1-15 minutes, on File ([id number]) Advance Care Planning Forms completed: Health Care Proxy (form given to pt to fill out), MOLST (form given to pt to fill out), Comfort care/DNR and Living will (not done currently, recommended getting done) Time spent: 1-15 minutes, on File Actual minutes spent: 15
[2023-12-30 08:56] VITALS: BP 118/76; PULSE 77; O2SAT 98; BMI 33.9
== END 2023-12-30 09:47 | disposition home or self-care (01) ==
PROVIDERS: PCP Nurse Practitioner Family; Visit Provider Nurse Practitioner Family
DX: Z00.00 Encounter for general adult medical examination without abnormal findings (principal); F17.200 Nicotine dependence, unspecified, uncomplicated; E55.9 Vitamin D deficiency, unspecified; Z78.0 Asymptomatic menopausal state
CPT/HCPCS: 1123F; G0439

== ENCOUNTER 2024-01-09 08:20 | Outpatient (REF) | payer MEDICARE, SELFPAY ==
--- NOTE | ~2024-01-09 | MM_ITS ---
EXAMINATION: MM SCREENING DIGITAL BREAST TOMOSYNTHESIS, BILATERAL CLINICAL INFORMATION: Screening. Asymptomatic. COMPARISON: Mammography: This study is compared with prior exams dating back to 2019. TECHNIQUE: Digital breast tomosynthesis is performed in both the craniocaudal and mediolateral oblique views along with computer-aided detection (CAD). Synthesized 2D images are generated from the tomosynthesis. FINDINGS: There are scattered areas of fibroglandular density (ACR BI-RADS breast composition Category b). There are no significant masses, abnormal calcifications, or other abnormalities. MM/MM tomosynthesis screening BI IMPRESSION: No mammographic evidence of malignancy. ASSESSMENT: BI-RADS BI-RADS 1 - Negative RECOMMENDATION: Routine annual mammography screening. 1 year F/U This examination should not preclude the clinical evaluation of a suspicious palpable abnormality. This patient's information was entered into a reminder system with a target due date for their next mammogram. Electronically signed by: Mahsa Potts MD 02/06/2024 11:24 AM EDT
== END 2024-01-09 08:21 | disposition home or self-care (01) ==
LOC: HO.MAMMO 08:20
PROVIDERS: PCP Nurse Practitioner Family; Visit Provider Nurse Practitioner Family
DX: Z12.31 Encounter for screening mammogram for malignant neoplasm of breast (principal)
CPT/HCPCS: 77063; 77067

== ENCOUNTER → 2024-01-09 08:30 | Outpatient (BNV) | payer MEDICARE, SELFPAY | PROVIDERS: PCP Nurse Practitioner Family; Visit Provider Radiology Diagnostic Radiology | DX: Z12.31 Encounter for screening mammogram for malignant neoplasm of breast (principal) | CPT/HCPCS: 77063; 77067 ==

== ENCOUNTER 2024-01-31 07:33 | Outpatient (REF) | payer MEDICARE, SELFPAY ==
[2024-01-31 07:50] LABS: MANUAL DIFF FLAG NO
[2024-01-31 08:37] LABS: Basophils Absolute Auto 0.1 X10*3/uL (0.0-0.2); Basophils Percent Auto 0.9 % (0-2); Eosinophils Absolute Auto 0.2 X10*3/uL (0.0-0.4); Eosinophils Percent Auto 2.6 % (0-4); Hemoglobin 14.7 g/dl (12.0-16.0); Imm Gran Abs Auto 0.02 X10*3/uL (0.00-0.03); Imm Gran Pct Auto 0.3 % (0.0-0.4); Lymphocytes Percent Auto 29.4 % (20-40); Mean Corpuscular HGB Conc 34.2 g/dl (31.0-35.0); Mean Corpuscular Hemoglobin 31.6 pg (27.0-33.0); Mean Corpuscular Volume 92.5 fL (80.0-98.0); Mean Platelet Volume 10.8 fL (9.4-12.3); Monocytes Absolute Auto 0.5 X10*3/uL (0.1-1.2); Monocytes Percent Auto 7.5 % (2-11); Neutrophils Absolute Auto 4.1 x10*3/uL (2.0-8.3); Neutrophils Percent Auto 59.3 % (45-73); Platelet Count 264 X10*3/uL (160-400); Red Blood Count 4.65 X10*6/uL (4.20-5.50); Red Cell Distribution Width 12.5 % (11.0-16.0); White Blood Count 6.9 X10*3/uL (4.8-10.8)
[2024-01-31 08:56] LABS: Alanine Aminotransferase 19 U/L (0-31); Albumin Level 4.1 g/dL (3.5-5.0); Alkaline Phosphatase 89 U/L (39-117); Anion Gap 10 (12-20); Aspartate Amino Transferase 17 U/L (5-31); Bilirubin Total 0.4 mg/dL (0.0-1.0); Blood Urea Nitrogen 13 mg/dL (9-16); Calcium 9.4 mg/dL (8.4-10.2); Carbon Dioxide 29 mmol/L (22-29); Chloride 106 mmol/L (96-108); Cholesterol 157 mg/dL (<200); Estimated Glomerular Filt Rate > 60; Glucose Fasting 120 mg/dL (60-99); HDL Cholesterol 56 mg/dL (>40); LDL Cholesterol Calculated 82 mg/dL (<100); Potassium 4.4 mmol/L (3.3-5.1); Sodium 141 mmol/L (135-145); Total Protein 6.9 g/dL (6.5-8.0); Triglycerides 96 mg/dL (<150)
[2024-01-31 09:12] LABS: TSH reflex Free T4 4.77 uIU/mL (0.32-4.0); Vitamin D 25-OH Total 55.7 ng/mL (>30)
[2024-01-31 11:24] LABS: Free T4 (Free Thyroxine) 0.76 ng/dL (0.71-1.85)
== END 2024-01-31 07:34 | disposition home or self-care (01) ==
LOC: HO.LAB 07:33
PROVIDERS: PCP Nurse Practitioner Family; Visit Provider Nurse Practitioner Family
DX: F17.200 Nicotine dependence, unspecified, uncomplicated (principal); E78.5 Hyperlipidemia, unspecified; E55.9 Vitamin D deficiency, unspecified
CPT/HCPCS: 36415; 80053; 80061; 82306; 84439; 84443; 85025

== ENCOUNTER 2024-02-05 07:52 | Outpatient (REF) | payer MEDICARE, SELFPAY ==
[2024-02-05 10:35] LABS: Appearance Urine Clear; Color Urine Yellow; Glucose Urine UA Negative (Negative); Leukocyte Esterase Urine Negative (Negative); Nitrite Urine Negative (Negative); PH 6.5 (5.0-9.0); Specific Gravity - Urine 1.015 (1.005-1.025); Urine Blood Negative (Negative); Urine Ketones Negative (Negative); Urine Protein Negative (Neg-Trace)
== END 2024-02-05 07:53 | disposition home or self-care (01) ==
LOC: HO.LAB 07:52
PROVIDERS: Visit Provider Nurse Practitioner Family
DX: E78.5 Hyperlipidemia, unspecified (principal); F17.200 Nicotine dependence, unspecified, uncomplicated
CPT/HCPCS: 81003

== ENCOUNTER 2024-02-18 07:08 | Day surgery (SDC) | payer MEDICARE, SELFPAY ==
[2024-02-14 15:33] VITALS: BMI 36.0
--- NOTE | 2024-02-17 12:59 | P.CONAN_ITS ---
HPI - Anesthesia Eval Consult details Narrative: 68yo F for Colonoscopy PMF Active Problems Active Problems: All Active Problems Chronic pain syndrome (Acute) Dyslipidemia (Acute) Obstructive sleep apnea of adult (Acute) Nicotine dependence, cigarettes, uncomplicated (Acute) Seasonal allergies (Acute) GERD (gastroesophageal reflux disease) (Acute) Diverticulosis of colon (Acute) Tubular adenoma (Acute) Sessile serrated polyp of colon (Acute) Colon ulcer (Acute) Osteopenia (Acute) Postmenopausal (Acute) Vitamin D deficiency (Acute) Elevated TSH (Acute) Incomplete bladder emptying (Acute) Depression with anxiety (Acute) Sacroiliitis (Acute) Sciatica (Acute) Left leg swelling (Acute) Low back pain with sciatica (Acute) Tardive dyskinesia (Acute) Slurred speech (Acute) Facial droop (Acute) Numbness of tongue (Acute) Knee pain (Acute) Past Medical History Medical History Chronic pain syndrome SVT (supraventricular tachycardia) Elevated cholesterol Obstructive sleep apnea of adult Nicotine dependence, cigarettes, uncomplicated Osteopenia GERD (gastroesophageal reflux disease) Tubular adenoma Depression with anxiety Sacroiliitis Arthritis Swelling of knee joint, left Tardive dyskinesia Family History Family History Father Mental health disorder Paternal Grandfather Mental health disorder Daughter Mental health disorder Family history of problems with anesthesia: No Surgical History Surgical History History of colonoscopy History of hysterectomy History of rotator cuff surgery History of hand surgery History of cardiac radiofrequency ablation (RFA) History of Problems with Anesthesia: No Social History Social History Household Members Other:: daughter Housing: House Are you a primary student career development specialist to a significant other at home: No Do you presently have visiting nurse or other home services: No Patient Tobacco Use Status: Current everyday Tobacco user Tobacco use type: Cigarette Cigarettes Per Day: 2 Years Smoked: 40 e-Cigarette/Vaping Use: Never Used Second Hand Smoke Exposure: No service: No Current occupational status: retired Current occupation: works part [employer] Current occupational exposures/hazards: No Cognitive needs: No Hearing needs: No Vision needs: Yes Meds Allergies Allergy/AdvReac Type Severity Reaction Status Date / Time No Known Allergies Allergy Verified 12/30/23 08:57 [No Known Allergies*] Home Medications ?Medication ?Instructions ?Recorded ?Confirmed ?Last Taken ?Type bupropion HCl 300 mg 24 hr tablet, 300 mg PO DAILY 04/07/20 10/31/23 06/07/22 06:30 History extended release lorazepam 1 mg tablet 0.5 mg PO BID PRN Anxiety 04/07/20 10/31/23 Unknown History duloxetine 30 mg capsule,delayed 30 mg PO QAM 06/14/21 10/31/23 06/07/22 06:30 History release bupropion HCl 150 mg 24 hr tablet, 150 mg PO QAM 09/19/23 10/31/23 Unknown History extended release duloxetine 60 mg capsule,delayed 60 mg PO DAILY 09/19/23 10/31/23 Unknown History release Exam Height,Weight and Vital Signs: Height 5 ft 4 in Weight 95.254 kg Assessment and Plan Assessment Anesthesia Assessment: Chart Reviewed Final Anesthetic Review Family History of Problems with Anesthesia: No History of Problems with Anesthesia: No
[2024-02-18 07:47] VITALS: BP 113/65; PULSE 76; RESP 20; TEMP 36.1; O2SAT 95
[2024-02-18] MEDS: Lactated Ringers 1,000 ML 100 ML IVCONT (08:06)
--- NOTE | 2024-02-18 08:25 | MHC.SHP ---
Pre-Procedural Eval Section A - 24 Hr Update-Section A only Date of Service: 02/18/24 Section B - Complete if H&P > 30 days Chief Complaint: screening, hx of polyps Relevant Family History (Specify if Yes): No Relevant Social History: Tobacco Use Present Medications: see Short Stay Collaborative assessment Medical History: Significant History (Chronic pain syndrome SVT (supraventricular tachycardia) Elevated cholesterol Obstructive sleep apnea of adult Nicotine dependence, cigarettes, uncomplicated Osteopenia GERD (gastroesophageal reflux disease) Tubular adenoma Depression with anxiety Sacroiliitis Arthritis Swelling of knee joint, left ) History of Previous Operations: Relevant previous surgery/procedure and date(s) (History of colonoscopy History of hysterectomy History of rotator cuff surgery History of hand surgery History of cardiac radiofrequency ablation (RFA)) Allergies: Allergies Allergy/AdvReac Type Severity Reaction Status Date / Time No Known Allergies Allergy Verified 12/30/23 08:57 [No Known Allergies*] Review of Systems Sugical H&P ROS: Negative: Constitution, Cardiovascular, Respiratory, Neurological, Psychiatric, Hem-Onc, Allergic/Immunologic, Gastrointestinal, Genitourinary, Musculoskeletal, Integumentary, Endocrine and Eyes/Ears/Nose/Throat Exam Surgical H&P Exam: Normal: HEENT, Normal: Heart, Normal: Lungs, Normal: Extremities, Normal: Abdomen, Normal: Skin and Normal: Neurological Plan Diagnosis/Plan: Unchanged I have reviewed the history and physical and performed a pertinent physical examination on my patient. No changes have occurred unless specified. Time Spent With Patient Time: Total time managing care of this patient today ____ minutes.
--- NOTE | 2024-02-18 08:47 | HO.ANESPROP2 ---
FORMERLY [facility] Active Problems Active Problems: All Active Problems Chronic pain syndrome (Acute) Dyslipidemia (Acute) Obstructive sleep apnea of adult (Acute) Nicotine dependence, cigarettes, uncomplicated (Acute) Seasonal allergies (Acute) GERD (gastroesophageal reflux disease) (Acute) Diverticulosis of colon (Acute) Tubular adenoma (Acute) Sessile serrated polyp of colon (Acute) Colon ulcer (Acute) Osteopenia (Acute) Postmenopausal (Acute) Vitamin D deficiency (Acute) Elevated TSH (Acute) Incomplete bladder emptying (Acute) Depression with anxiety (Acute) Sacroiliitis (Acute) Sciatica (Acute) Left leg swelling (Acute) Low back pain with sciatica (Acute) Tardive dyskinesia (Acute) Slurred speech (Acute) Facial droop (Acute) Numbness of tongue (Acute) Knee pain (Acute) Past Medical History Medical History Chronic pain syndrome SVT (supraventricular tachycardia) Elevated cholesterol Obstructive sleep apnea of adult Nicotine dependence, cigarettes, uncomplicated Osteopenia GERD (gastroesophageal reflux disease) Tubular adenoma Depression with anxiety Sacroiliitis Arthritis Swelling of knee joint, left Tardive dyskinesia Functional capacity: independent ambulation Patient : No Family History Family History Father Mental health disorder Paternal Grandfather Mental health disorder Daughter Mental health disorder Family history of problems with anesthesia: No Surgical History Surgical History History of colonoscopy History of hysterectomy History of rotator cuff surgery History of hand surgery History of cardiac radiofrequency ablation (RFA) History of Problems with Anesthesia: No Social History Social History Household Members Other:: daughter Housing: House Are you a primary child care supervisor to a significant other at home: No Do you presently have visiting nurse or other home services: No Patient Tobacco Use Status: Current everyday Tobacco user Tobacco use type: Cigarette Cigarettes Per Day: 2 Years Smoked: 40 e-Cigarette/Vaping Use: Never Used Second Hand Smoke Exposure: No Have you been hit, kicked, punched, or otherwise hurt by someone within the past year? If so, by whom?: No Are you DNR?: No Advance Directives: No Advance Directives Information Provided: Yes Recently lost weight without trying: No service: No Current occupational status: retired Current occupation: works part [employer], [employer] Current occupational exposures/hazards: No Cognitive needs: No Hearing needs: No Vision needs: Yes Meds Allergies Allergy/AdvReac Type Severity Reaction Status Date / Time No Known Allergies Allergy Verified 12/30/23 08:57 [No Known Allergies*] Active Medications: Current Medications Albuterol Sulfate (Albuterol Sulfate (0.083%) 2.5 Mg/3 Ml Vial.Neb) 2.5 mg INHALE ONCE PRN PRN Reason: Shortness of Breath/Wheezing Lactated Ringer's (Lr) 1,000 mls @ 100 mls/hr IVCONT .Q10H ASHOK Last Admin: 02/18/24 08:06 Dose: 100 mls/hr Home Medications ?Medication ?Instructions ?Recorded ?Confirmed ?Last Taken ?Type bupropion HCl 300 mg 24 hr tablet, 300 mg PO DAILY 04/07/20 10/31/23 06/07/22 06:30 History extended release lorazepam 1 mg tablet 0.5 mg PO BID PRN Anxiety 04/07/20 10/31/23 Unknown History duloxetine 30 mg capsule,delayed 30 mg PO QAM 06/14/21 10/31/23 06/07/22 06:30 History release bupropion HCl 150 mg 24 hr tablet, 150 mg PO QAM 09/19/23 10/31/23 Unknown History extended release duloxetine 60 mg capsule,delayed 60 mg PO DAILY 09/19/23 10/31/23 Unknown History release Exam Height,Weight and Vital Signs: Height 5 ft 4 in Weight 95.254 kg Last Vital Signs Temp 96.9 F 02/18/24 07:47 Pulse 76 02/18/24 07:47 Resp 20 02/18/24 07:47 BP 113/65 02/18/24 07:47 Pulse Ox 95 02/18/24 07:47 O2 Del Method Room Air 02/18/24 07:47 Airway Mallampati Class: II TM Dist: >3cm Neck ROM: Full Heart: RRar Lungs: CTA Assessment and Plan Assessment Anesthesia Assessment: Anesthesia Plan Discussed, Smoking Cess. Discussed and Chart Reviewed Final Anesthetic Review Family History of Problems with Anesthesia: No History of Problems with Anesthesia: No ASA Class: II Final Preanesthetic Review: Meds/Allgs Chart Reviewed, Consent Obtained/Reviewed and Anes Risks/Benef Reviewed Patient Risk: Low Procedure Risk: Low Anesthetic Plan Anesthetic Plan: MAC: Disposition: Standard PACU
--- NOTE | 2024-02-18 09:27 | P.OPN-COLO_ITS ---
Colonoscopy Operative Note Operative Note Date of Service: 02/18/24 Narrative: Operative Information Procedure Description: Colonoscopy Indication: screening, hx of polyps Anesthesia: MAC COLONOSCOPY Instrument: Olympus variable stiffness pediatric scope 190L Colonoscopy Monitoring: Vital signs and clinical assessment, continuous EKG monitoring, Pulse oximetry, Carbon Dioxide monitoring and blood pressure monitoring were done throughout the procedure. Colon withdrawal time was 8 minutes. Procedure: The patient was placed in the left lateral decubitis position and pre-procedure medications were administered. After a digital rectal examination of the ano-rectum, the video colonoscope was inserted into the rectum and advanced through the colon to the cecum/TI. The colonoscope was slowly withdrawn in a retrograde panoramic fashion and the colon mucosa was carefully examined including a retroflexed view of the rectum. Findings and interventions are described below. Procedure Difficulty: moderate Findings: Terminal Ileum-normal Cecum:normal Ascending Colon: mild diverticulosis Transverse Colon - 6-8 mm sessile polyp removed with cold snare, and another 6-8 mm sessile polyp removed with cold forceps Descending Colon:normal Sigmoid Colon: moderate diverticulosis Rectum: Retroflexion with small internal hemorrhoids seen, grade I Anorectum - normal Intervention: cold snare, cold forceps Colon preparation: Providence Bowel Preparation Scale Right colon; 2 Transverse colon: 2 Left colon; 2 (0 = Unprepared colon segment with mucosa not seen due to solid stool that cannot be cleared. 1 = Portion of mucosa of the colon segment seen, but other areas of the colon segment not well seen due to staining, residual stool and/or opaque liquid. 2 = Minor amount of residual staining, small fragments of stool and/or opaque liquid, but mucosa of colon segment seen well. 3 = Entire mucosa of colon segment seen well with no residual staining, small fragments of stool or opaque liquid) Impression and Post Procedure Diagnosis: diverticulosis colon polyps internal hemorrhoids Plan: High fiber diet leaflet Avoid straining at stool, epsom salts and sitz bath, anusol supps or cream Repeat Colonoscopy in 4-5 years or earlier if clinically indicated Above findings were reviewed with the patient and relevant handouts were provided if indicated.
[2024-02-18 09:28] VITALS: BP 103/58; PULSE 75; RESP 16; TEMP 35.9; O2SAT 95
[2024-02-18 09:43] VITALS: BP 116/68; PULSE 64; RESP 18; TEMP 36.1; O2SAT 95
--- NOTE | 2024-02-18 14:34 | HO.POSTANES ---
Post Anesthesia Evaluation Post Anesthesia Evaluation Date of Service: 02/18/24 Vital Signs: Vital Signs Temp Pulse Resp BP Pulse Ox O2 Del Method 02/18/24 09:43 97 F 64 18 116/68 95 Room Air 02/18/24 09:28 96.6 F L 75 16 103/58 L 95 Room Air 02/18/24 07:47 96.9 F 76 20 113/65 95 Room Air Anesthesia: Monitored Mental Status: Awake Pain Control: Satisfactory Nausea/Vomiting: None Hydration: Adequate Anesthesia-Related Issues: No Anes. Related Issues
== END 2024-02-18 10:34 | disposition home or self-care (01) ==
PROVIDERS: Visit Provider Internal Medicine Gastroenterology
PROC: 0DJD8ZZ Inspection of Lower Intestinal Tract, Via Natural or Artificial Opening Endoscopic (ICD-10-PCS; CPT 45378; principal; 2024-02-18 09:00)
DX: Z12.11 Encounter for screening for malignant neoplasm of colon (principal); D12.3 Benign neoplasm of transverse colon; K57.30 Diverticulosis of large intestine without perforation or abscess without bleeding; K64.0 First degree hemorrhoids; Z86.010 Personal history of colon polyps; F17.210 Nicotine dependence, cigarettes, uncomplicated; E78.5 Hyperlipidemia, unspecified; G47.33 Obstructive sleep apnea (adult) (pediatric); Z79.02 Long term (current) use of antithrombotics/antiplatelets; Z79.899 Other long term (current) drug therapy
CPT/HCPCS: 45385; 45380; 88305; J2704

== ENCOUNTER → 2024-02-18 07:08 | Outpatient (BNV) | payer MEDICARE, SELFPAY | PROVIDERS: Visit Provider Internal Medicine Gastroenterology | DX: Z12.11 Encounter for screening for malignant neoplasm of colon (principal); K57.90 Diverticulosis of intestine, part unspecified, without perforation or abscess without bleeding; D12.3 Benign neoplasm of transverse colon; K64.8 Other hemorrhoids | CPT/HCPCS: 45380; 45385 ==

== ENCOUNTER 2024-02-20 08:00 | Outpatient (RCR) | payer MEDICARE, SELFPAY ==
--- NOTE | 2024-01-06 14:25 | MHC.PT.EP ---
[facility] [place] [facility] [place] [facility] [place] [facility] [address] Kenzie Sahu [address] [phone] F: [phone] F: [phone] F: [phone] F: [phone] Physical Therapy Plan of Care Date of Evaluation: 01/06/24 Date of Surgery: n/a Diagnosis: Sciatica, unspecified side Assessment: Pt is a pleasant 68yo F who presents to PT with sciatica. She reports pain in low back that radiates into LE's. Pt presents to PT with current impairments in pain, decreased lumbar ROM, soft tissue restrictions, posterior chain tightness, decreased core stabilization, decreased hip/glute strength, impaired posture, impaired body mechanics, and impaired gait. She is limited functionally by bending, prolonged sitting, prolonged standing, and stair navigation. She is an excellent candidate for skilled PT in order to address current impairments to facilitate return to PLOF. She is recommended to be seen 2x/week for 4 weeks and will be reassessed at that time Frequency and Duration: The patient will be seen 2x/week for 4 weeks Short Term Goals: Pt will be I with HEP to promote self management of symptoms Pt will have centralization of symptoms Pt will demonstrate improvements in postural awareness and body mechanics Clearing House Clerk Goals: Pt will demonstrate ability to squat and pickling tank operator object from the floor with proper body mechanics Pt will tolerate prolonged sitting > 20 min without radicular symptoms Pt will tolerate standing and walking > 30 min without radicular symptoms Treatment Plan: Modalities to reduce pain, spasms and effusion. Manual therapy to restore motion and function. Therapeutic exercise to improve strength and flexibility. Neuromuscular re-education for posture and balance. Therapeutic activities to return to functional activities of daily living. Electronically signed by: Laurence Miller, PT, DPT Please sign and return to therapist. Thank you for your referral.
--- NOTE | 2024-04-08 14:33 | MHC.PT.DC ---
[facility] [place] Office [place] Office [place] Office [address] Kenzie Sahu [address] [phone] F: [phone] F: [phone] F: [phone] F: [phone] Physical Therapy Discharge Report Diagnosis: Sciatica, unspecified side Date of Surgery: n/a Date of Evaluation: 01/06/24 Date of Discharge: 04/08/24 Treatments to Date: 8 Cancellations to Date: No Shows to Date: Discharge Status: Discharge Summary: Pt was seen for PT from 01/06/24-02/20/24. Her last attended and scheduled appointment was 02/20/24. She is being D/C from skilled PT as she has not attended or called to schedule in > 30 days. Pt current level of function unknown at this time Electronically signed by: Laurence Miller, PT, DPT Please sign and return to therapist. Thank you for your referral.
== END 2024-04-08 14:32 | disposition home or self-care (01) ==
LOC: HO.PT 08:00
PROVIDERS: PCP Nurse Practitioner Family; Visit Provider Nurse Practitioner Family
DX: M54.30 Sciatica, unspecified side (principal)
CPT/HCPCS: 97035; 97110; 97162

== ENCOUNTER 2024-03-06 09:15 | Outpatient (AMB) | payer MEDICARE, SELFPAY ==
--- NOTE | 2024-03-06 08:17 | MHC.OFFVIS ---
Intake Visit Reasons: Current Smoker Allergies No Known Allergies [No Known Allergies*] Allergy (Verified 12/30/23 08:57) HPI HPI Current Smoker: Details: Initial visit for this 69yo smoker with a 35PYH. Patient started smoking at age 17 for 50 years at 1/2-1ppd. Reports quitting for a period of about 2years . Reports occasional marijuana use/vape. Denies second hand smoke exposure. Parents growing up. Denies exposure to chemicals or substances like asbestos. . Reports family history of lung cancer. Mother 88yo - metastatic when found. Denies personal history of cancers. Denies chest CT in last year. . Denies recent travel outside the [place]. Denies recent respiratory illness or recent hospitalization for respiratory issues. Denies testing positive for COVID. Admits receiving COVID Vaccine. . Denies fever, chills, new/worsening cough, hemoptysis, hoarseness or dysphagia. Denies significant chest pain, significant dyspnea or unintentional weight loss. Patient Lung Cancer Screening Questionnaire reviewed with patient by provider. . Shared Decision Making Completed. Patient meets criteria. Discussed in detail with patient, the risk vs benefit of LDCT screening. Patient consents to proceed with scan. Discussed smoking cessation. [facility] Medical History (Updated 03/06/24 @ 09:37 by Shelby Alexis PA-C) Chronic pain syndrome SVT (supraventricular tachycardia) Elevated cholesterol Obstructive sleep apnea of adult Nicotine dependence, cigarettes, uncomplicated Osteopenia GERD (gastroesophageal reflux disease) Tubular adenoma Depression with anxiety Sacroiliitis Arthritis Swelling of knee joint, left Tardive dyskinesia Surgical History (Updated 03/03/24 @ 08:41 by Shelby Alexis PA-C) History of colonoscopy History of hysterectomy History of rotator cuff surgery History of hand surgery History of cardiac radiofrequency ablation (RFA) Family History (Updated 03/06/24 @ 09:36 by Shelby Alxeis PA-C) Father Mental health disorder Paternal Grandfather Mental health disorder Daughter Mental health disorder Mother Lung cancer Social History (Updated 03/06/24 @ 09:37 by Shelby Alexis PA-C) Household Members Other:: daughter Housing: House Are you a primary acute care clinical nurse specialist to a significant other at home: No Do you presently have visiting nurse or other home services: No Patient Tobacco Use Status: Current everyday Tobacco user Tobacco use type: Cigarette Years Smoked: (onset 17yo, 1/2-1ppd x 50yrs, 35pyh) e-Cigarette/Vaping Use: Never Used Second Hand Smoke Exposure: No service: No Current occupational status: retired 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 - Patient meets criteria for LDCT for lung cancer screening purposes and is asymptomatic. - Smoking cessation counseling offered. Patients can always call [phone]. - Will arrange for a LDCT scan of the chest for screening purposes at [facility]. - Risks, benefits, and alternatives were discussed in detail and the patient agrees to proceed. - Risks discussed include but are not limited to: radiation exposure, anxiety during testing and while awaiting results, false negatives, false positives and possibility of additional intervention such as further imaging or surgical procedures for benign disease. - Benefits are obviously detection of lung cancer at an early stage which can lead to improved outcomes. - Discussed the importance of screening program compliance with adherence to yearly LDCT scan as scheduled - or sooner interval scans for personalized screening regimen. - Discussed follow up plan. Our office will send a letter discussing results and if needed set up phone call and office visit based on CT findings. - Patient educated on results categorization and the management decisions for suspicious findings potentially found on the screening LDCT scan. Any patient with a Lung RADS score of 3 or 4 will be reviewed by a multidisciplinary team at [facility] to form a plan of action in regards to scan findings. - If further work up is warranted for a suspicious lung finding this will be followed by the Lung Cancer Screening program in conjunction with the Thoracic Surgery Department at [facility]. - A copy of the office note and LDCT will be sent to the patient's PCP - as well as documentation on any associated further plans of care. - Incidental findings on LDCT are the PCP's responsibility. These findings are indicated with an S finding on the LDCT Assessment. A note discussing the findings will be sent to the PCP who is then responsible for further management. - All questions answered.? Coding Level of Care Code Lung Cancer Screening G0296 Diagnoses Nicotine dependence, cigarettes, uncomplicated F17.210
== END 2024-03-06 10:10 | disposition home or self-care (01) ==
PROVIDERS: PCP Nurse Practitioner Family; Visit Provider Physician Assistant Medical
DX: F17.210 Nicotine dependence, cigarettes, uncomplicated (principal)
CPT/HCPCS: G0296

== ENCOUNTER 2024-03-06 09:36 | Outpatient (REF) | payer MEDICARE, SELFPAY ==
--- NOTE | ~2024-03-06 | CT_ITS ---
EXAMINATION: CT CHEST LOW-DOSE SCREENING WITHOUT CONTRAST CLINICAL INFORMATION: Asymptomatic patient meeting criteria for lung screening. Nicotine dependence, uncomplicated. PATIENT PACK-YEAR HISTORY: 47. Current Smoker: Yes. If former smoker, years since quitting: Not applicable. COMPARISON: None available. TECHNIQUE: Multidetector volumetric non-contrast CT imaging of the chest was obtained on a Siemens Somatom Definition scanner using low dose screening CT technique. Axial thin section 0.625 mm reformations in soft tissue and lung windows were obtained. Sagittal and coronal reformations were obtained. Axial MIP images were also created and reviewed. RECONSTRUCTED WIDTH: 1.25 mm x 1.[address] examination was performed using dose optimization techniques as appropriate, variously including the following: *Automated exposure control. *Adjustment of mA and/or kV according to patient size (this includes techniques or standardized protocols for targeted exams where dose is matched to indication/reason for exam; i.e. extremities or head). *Use of iterative reconstruction technique. TOTAL EXAM DLP: 55.20 mGy-cm. CTDIvol: 1.62 mGy. FINDINGS: PULMONARY NODULES: Single tiny perifissural 3 mm nodule is seen in the left upper lobe (5:187). No suspicious lung masses are seen. LUNGS: Lungs bilaterally symmetrically expanded. There is fazt-kv-hqewvezo emphysema and mild bronchial thickening without bronchiectasis. No effusion or pneumothorax. Central airways patent. LYMPHATIC STRUCTURES: No mediastinal, hilar or axillary adenopathy or free fluid collection. THYROID GLAND: Unremarkable to the extent seen. CARDIOVASCULAR STRUCTURES: Aortic and heart size normal. Trace coronary artery calcifications. No pericardial effusion. UPPER ABDOMEN: Included portions of the solid organs in the upper abdomen unremarkable on noncontrast imaging. OSSEOUS STRUCTURES: No suspicious focal findings. SPINAL COMPRESSION: Absent. CT/CT lung screening IMPRESSION: No findings suspicious for malignancy/pulmonary nodule(s)/other. LUNG-RADS CATEGORY ASSESSMENT: 2: Benign. INCIDENTAL FINDINGS (S CATEGORY): Finding: No incidental findings. Significance Category: Normal or normal variant. RECOMMENDATION: Low dose lung CT. overall in 1 year. Electronically signed by: Michael Pandey MD 04/21/2024 06:01 PM [facility]
== END 2024-03-06 09:37 | disposition home or self-care (01) ==
LOC: HO.CT 09:36
PROVIDERS: PCP Nurse Practitioner Family; Visit Provider Physician Assistant Medical
DX: Z12.2 Encounter for screening for malignant neoplasm of respiratory organs (principal); F17.210 Nicotine dependence, cigarettes, uncomplicated
CPT/HCPCS: 71271; G0296

== ENCOUNTER 2024-03-23 08:43 | Outpatient (AMB) | payer MEDICARE, SELFPAY ==
--- NOTE | 2024-03-23 08:45 | MHC.OFFWIV ---
Intake Vital Signs 03/23/24 08:46 Height 5 ft 4 in Weight 213 lb 2 oz BMI 36.6 BP 108/66 Blood Pressure Location Rt brachial Position Sitting Pulse 64 Pulse Source Pulse Oximeter Pulse Oximetry (%) 98 Oxygen Delivery Method Room Air Intake Visit Reasons: EP RT ankle injury Patient Tobacco Use Status: Current everyday Tobacco user Allergies No Known Allergies [No Known Allergies*] Allergy (Verified 03/23/24 08:46) Do you need a note to return to daycare/school/sports/work: No HPI EP RT ankle injury HPI Details This note is constructed using voice recognition software. While every effort has been made to ensure accuracy, home therapy teacher errors may have been included. The patient is a 69 year old female who presents to the clinic today with right ankle pain after a fall yesterday. She notes that she was raking leaves, and wearing oversized boots, when she stepped over a short gait, tripping, and then twisting her ankle with pain in the lateral aspect. She notes that the pain is worse if she puts pressure on her leg. She reports that shortly after the event she noticed swelling in the ankle. She has attempted to avoid putting weight on the ankle, since the event. [facility] Medical History (Updated 03/06/24 @ 09:37 by Shelby Alexis PA-C) Chronic pain syndrome SVT (supraventricular tachycardia) Elevated cholesterol Obstructive sleep apnea of adult Nicotine dependence, cigarettes, uncomplicated Osteopenia GERD (gastroesophageal reflux disease) Tubular adenoma Depression with anxiety Sacroiliitis Arthritis Swelling of knee joint, left Tardive dyskinesia Surgical History (Updated 03/03/24 @ 08:41 by Shelby Alexis PA-C) History of colonoscopy History of hysterectomy History of rotator cuff surgery History of hand surgery History of cardiac radiofrequency ablation (RFA) Family History (Updated 03/06/24 @ 09:36 by Shelby Alexis PA-C) Father Mental health disorder Paternal Grandfather Mental health disorder Daughter Mental health disorder Mother Lung cancer Social History (Updated 03/06/24 @ 09:37 by Shelby Alexis PA-C) Household Members Other:: daughter Housing: House Are you a primary director critical care to a significant other at home: No Do you presently have visiting nurse or other home services: No Patient Tobacco Use Status: Current everyday Tobacco user Tobacco use type: Cigarette Years Smoked: (onset 17yo, 1/2-1ppd x 50yrs, 35pyh) e-Cigarette/Vaping Use: Never Used Second Hand Smoke Exposure: No service: No Current occupational status: retired Current occupation: works part [employer] Current occupational exposures/hazards: No Cognitive needs: No Hearing needs: No Vision needs: Yes Review of Systems Const All systems reviewed & are unremarkable except as noted in HPI and below Physical Exam Vital Signs: Last Vital Signs Pulse 64 03/23/24 08:46 BP 108/66 03/23/24 08:46 Pulse Ox 98 03/23/24 08:46 Oxygen Delivery Method Room Air 03/23/24 08:46 BMI result Body Mass Index 36.6 Const General: cooperative, healthy appearing, comfortable, no acute distress and alert Orientation/consciousness: patient oriented x3 Limitations: no limitations Resp Effort & Inspection: normal respiratory effort and able to speak in complete sentences Skin General skin exam: no rashes or lesions noted, elasticity normal and turgor normal Neuro General: patient oriented x3 Extrem Other: Tender to palpation along lateral malleolus, with edema. No warmth, discharge, or lesions. Flexion and extension normal, however extension is with pain into the fibular region. Medial deviation limited due to pain. Distal neurovascular exam intact. General: Yes capillary refill normal and Yes normal exam except as noted Psych Appearance: grossly normal Mental Status: mental status grossly normal Speech and movement: Normal speech and movement present Affect: normal affect Results Reviewed Results Reviewed: XR images contemporaneously read by me with no obvious fracture noted. Assessment & Plan Assessment & Plan (1) Right ankle strain: Code(s): S96.911A - Strain of unspecified muscle and tendon at ankle and foot level, right foot, initial encounter Qualifiers: Encounter type: initial encounter Qualified Code(s): S96.911A - Strain of unspecified muscle and tendon at ankle and foot level, right foot, initial encounter Plan: X-ray obtained today to rule out fracture, x-ray appears normal. Advised rest, ice, compression, elevation. Advised to remain out of work for today and tomorrow. Cristo wrap applied. Advised NSAIDs for pain. Advised follow up as needed for worsening or failure to resolve. Plan See above for full details and plan. Orders: Orders XR ankle RT min 3V Today M25.571 - Pain in right ankle and joints of right foot Coding Level of Care Code Est Pt Level 4 (80734) Diagnoses Strain of right ankle, initial encounter S96.911A Encounter type: initial encounter
[2024-03-23 08:46] VITALS: BP 108/66; PULSE 64; O2SAT 98; BMI 36.6
== END 2024-03-23 09:24 | disposition home or self-care (01) ==
PROVIDERS: PCP Nurse Practitioner Family; Visit Provider Registered Nurse
DX: S96.911A Strain of unspecified muscle and tendon at ankle and foot level, right foot, initial encounter (principal)

== ENCOUNTER → 2024-03-23 08:43 | Outpatient (BNVA) | payer MEDICARE, SELFPAY | PROVIDERS: PCP Nurse Practitioner Family; Visit Provider Registered Nurse ==

== ENCOUNTER 2024-03-23 09:03 | Outpatient (REF) | payer MEDICARE, SELFPAY ==
--- NOTE | ~2024-03-23 | XR_ITS ---
EXAMINATION: XR ANKLE, RIGHT CLINICAL INFORMATION: Pain right ankle and joints of foot, lateral pain after fall. COMPARISON: None available. TECHNIQUE: AP, lateral, and mortise views of the right ankle. FINDINGS: Diffuse demineralization. Soft tissue swelling. Ankle joint effusion. Large plantar calcaneal spur. Moderate degenerative changes at the midfoot. Ankle mortise is maintained. XR/XR ankle RT min 3V IMPRESSION: Diffuse demineralization. Soft tissue swelling. Ankle joint effusion. Large plantar calcaneal spur. No displaced fracture was appreciated. This study was presented today, March 23, 2024, for interpretation. Stat results provided at this time as requested by referring provider. Electronically signed by: Paris Santiago MD 03/23/2024 12:43 PM EDT
== END 2024-03-23 09:04 | disposition home or self-care (01) ==
LOC: HO.HMGCX 09:03
PROVIDERS: PCP Nurse Practitioner Family; Visit Provider Registered Nurse
DX: S96.911A Strain of unspecified muscle and tendon at ankle and foot level, right foot, initial encounter (principal)
CPT/HCPCS: 73610; 99212

== ENCOUNTER 2024-04-16 08:00 | Outpatient (AMB) | payer MEDICARE, SELFPAY ==
[2024-04-16 08:02] VITALS: BP 120/70; PULSE 80; TEMP 36.7; O2SAT 97; BMI 36.6
--- NOTE | 2024-04-16 08:02 | AM.OFFWIN_ITS ---
Intake Vital Signs 04/16/24 08:02 Height 5 ft 4 in Weight 213 lb BMI 36.6 BP 120/70 Blood Pressure Location Rt brachial Position Sitting Pulse 80 Pulse Source Pulse Oximeter Temp 98.1 F Temp Source Oral Pulse Oximetry (%) 97 Intake Visit Reasons: EP bilat ear pain Intake Note: pt is here for bilat ear pain Patient Tobacco Use Status: Current everyday Tobacco user Allergies No Known Allergies [No Known Allergies*] Allergy (Verified 04/16/24 08:02) Do you need a note to return to daycare/school/sports/work: No HPI HPI Comments History of Present Illness Details Patient is a 69-year-old female complaining of a sinus infection that has brought her bilateral ear pain for the last few weeks. She states the ear pain is getting worse in the sinus infection is getting better. She states it alternates from [id number]. She denies any change in her hearing or fevers. She tells me she has been using a Neti pot with tap water [facility] Medical History (Updated 03/06/24 @ 09:37 by Shelby Alexis PA-C) Chronic pain syndrome SVT (supraventricular tachycardia) Elevated cholesterol Obstructive sleep apnea of adult Nicotine dependence, cigarettes, uncomplicated Osteopenia GERD (gastroesophageal reflux disease) Tubular adenoma Depression with anxiety Sacroiliitis Arthritis Swelling of knee joint, left Tardive dyskinesia Surgical History (Updated 03/03/24 @ 08:41 by Shelby Alexis PA-C) History of colonoscopy History of hysterectomy History of rotator cuff surgery History of hand surgery History of cardiac radiofrequency ablation (RFA) Family History (Updated 03/06/24 @ 09:36 by Shelby Alexis PA-C) Father Mental health disorder Paternal Grandfather Mental health disorder Daughter Mental health disorder Mother Lung cancer Social History (Updated 03/06/24 @ 09:37 by Shelby Alexis PA-C) Household Members Other:: daughter Housing: House Are you a primary healthcare economics consultant to a significant other at home: No Do you presently have visiting nurse or other home services: No Patient Tobacco Use Status: Current everyday Tobacco user Tobacco use type: Cigarette Years Smoked: (onset 17yo, 1/2-1ppd x 50yrs, 35pyh) e-Cigarette/Vaping Use: Never Used Second Hand Smoke Exposure: No service: No Current occupational status: retired Current occupation: works part [employer], lt [employer] Current occupational exposures/hazards: No Cognitive needs: No Hearing needs: No Vision needs: Yes Review of Systems Const All systems reviewed & are unremarkable except as noted in HPI and below Physical Exam Vital Signs: Last Vital Signs Temp 98.1 F 04/16/24 08:02 Pulse 80 04/16/24 08:02 BP 120/70 04/16/24 08:02 Pulse Ox 97 04/16/24 08:02 BMI result Body Mass Index 36.6 Const General: cooperative, healthy appearing, comfortable and no acute distress Orientation/consciousness: patient oriented x3 Limitations: no limitations HEENT Head: Yes normal to inspection Ears: hearing grossly normal bilaterally, external ears normal and TM's normal bilaterally General nose exam: Normal external nose present, Normal nares present and No nasal discharge present Face and sinus: Yes normal facial exam and Yes sinuses nontender Mouth: Normal oral and palatal mucosa present and moist mucous membranes Throat: Yes tonsils normal, Yes uvula midline and Yes posterior oropharynx abnormal (Erythema) Eyes General: appearance normal, both eyes and all related structures Neck Neck: Yes normal visual inspection Resp Effort & Inspection: normal respiratory effort, able to speak in complete sentences, no respiratory distress, not tachypneic, no tripod positioning and no use of accessory muscles Skin General skin exam: no rashes or lesions noted Neuro General: patient oriented x3 Extrem General: Yes normal to inspection and Yes no clubbing, cyanosis or edema Assessment & Plan Assessment & Plan (1) Sinus infection: Code(s): J32.9 - Chronic sinusitis, unspecified Qualifiers: Sinusitis location: frontal Chronicity: acute Recurrence: recurrent Qualified Code(s): J01.11 - Acute recurrent frontal sinusitis Plan: Vital signs are stable, ears look fine but I will give her a small dose of prednisone to help everything drain and clear up faster. Recommended continuing use a Neti pot with distilled water. As well as Flonase and educated patient on the proper use of Flonase. Plan See above Medications: New 2 prednisone 20 mg PO QAM 5 tabs 0RF Coding Level of Care Code Est Pt Level 3 (84534) Diagnoses Acute recurrent frontal sinusitis J01.11 Sinusitis location: frontal Chronicity: acute Recurrence: recurrent
== END 2024-04-16 10:23 | disposition home or self-care (01) ==
PROVIDERS: PCP Nurse Practitioner Family; Visit Provider Physician Assistant
DX: J01.11 Acute recurrent frontal sinusitis (principal)

== ENCOUNTER → 2024-04-16 08:00 | Outpatient (BNVA) | payer MEDICARE, SELFPAY | PROVIDERS: PCP Nurse Practitioner Family; Visit Provider Physician Assistant | DX: J01.11 Acute recurrent frontal sinusitis (principal) | CPT/HCPCS: 99212 ==

== ENCOUNTER 2024-05-20 08:24 | Outpatient (AMB) | payer MEDICARE, SELFPAY ==
--- NOTE | 2024-05-20 08:28 | A.OFFVIS_ITS ---
Intake Visit Reasons: 1 yr fu/PVR Intake Note: Patient presents for follow up Urology Medications: none Blood Thinner: none PVR: 32ml's TODAY'S PVR:0ML'S Claims Representative Required: No Accompanied by: Self / Same As Patient Allergies No Known Allergies [No Known Allergies*] Allergy (Verified 05/20/24 08:52) Medication List - Last Reconciled 05/20/24 by LESVIA Levin-ALLEN albuterol sulfate 90 mcg/actuation (Ventolin HFA) 2 puffs inhalation Q4-6H PRN atorvastatin 20 mg PO DAILY 90 days bupropion HCl XL 300 mg PO DAILY bupropion HCl XL 150 mg PO QAM duloxetine 60 mg PO DAILY gabapentin 100 mg PO BEDTIME levothyroxine 25 mcg PO DAILY lorazepam 0.5 mg PO BID PRN omeprazole 40 mg PO DAILY 90 days prednisone 20 mg PO QAM HPI Comments Details: Nereida Keller is a very pleasant 68-year-old female patient of Dr. Shaw. She has a past medical history of arthritis, SVT, sleep apnea, GERD, hypercholesteremia, depression, anxiety, chronic pain syndrome, and sacroiliitis. She presents to the office today for a follow up of her incomplete bladder emptying. In discussion with the patient today she reports since her last office visit here approximately 1 year ago she has been feeling and doing well. She discusses previously she had days where she did not CIC daily as she was able to empty her bladder independently however feels she now needs to CIC at least 1 time per day typically in the morning. She reports feeling she wakes up with a full bladder and feels the need to urinate however is unable to independently therefore she will perform CIC. Previous workup has included a retroperitoneal ultrasound 04/25 noting bilateral kidneys with no calculi or hydronephrosis noted. The bladder is well distended. Bilateral ureteral jets are demonstrated. Pre void bladder volume is approximately 380 mL. Postvoid bladder volume is approximately 75 mL. She has a longstanding history of performing CIC intermittently for incomplete bladder emptying. Discussed at length potential causes for incomplete bladder emptying. She otherwise denies any bothersome urinary issues or concerns. She denies hematuria, dysuria, foul smelling urine, changes to urinary stream, flank pain, fever, and or chills. Discussed possible near future in office cystoscopy and or urodynamics for further assessment evaluation. Discussed trial of low-dose terazosin verses bethanechol. In office urinalysis results reviewed with the patient today. PVR 0mL. She otherwise offers no issues or concerns at this time. [facility] Medical History Chronic pain syndrome SVT (supraventricular tachycardia) Elevated cholesterol Obstructive sleep apnea of adult Nicotine dependence, cigarettes, uncomplicated Osteopenia GERD (gastroesophageal reflux disease) Tubular adenoma Depression with anxiety Sacroiliitis Arthritis Swelling of knee joint, left Tardive dyskinesia Surgical History (Updated 03/03/24 @ 08:41 by Shelby Alexis PA-C) History of colonoscopy History of hysterectomy History of rotator cuff surgery History of hand surgery History of cardiac radiofrequency ablation (RFA) Family History (Updated 03/06/24 @ 09:36 by Shelby Alexis PA-C) Father Mental health disorder Paternal Grandfather Mental health disorder Daughter Mental health disorder Mother Lung cancer Social History (Updated 03/06/24 @ 09:37 by Shelby Alexis PA-C) Household Members Other:: daughter Housing: House Are you a primary acute care nursing assistant to a significant other at home: No Do you presently have visiting nurse or other home services: No Patient Tobacco Use Status: Current everyday Tobacco user Tobacco use type: Cigarette Years Smoked: (onset 17yo, 1/2-1ppd x 50yrs, 35pyh) e-Cigarette/Vaping Use: Never Used Second Hand Smoke Exposure: No service: No Current occupational status: retired Current occupation: works part [employer] Current occupational exposures/hazards: No Cognitive needs: No Hearing needs: No Vision needs: Yes Review of Systems Const Reports as per HPI Eyes Reports no additional complaints ENT Reports no additional complaints Card Reports as per HPI Resp Reports as per HPI GI Reports as per HPI Reports as per HPI Musc Reports as per HPI Neuro Reports no additional complaints Psych Reports as per HPI Endo Reports no additional complaints Claudio/Lymph Reports no additional complaints Aller/Immun Reports no additional complaints Physical Exam Const General: cooperative, healthy appearing, comfortable, no acute distress, well developed, alert and awake Nutritional Appearance: overweight Orientation/consciousness: patient oriented x3 Limitations: no limitations HEENT Head: Yes normal to inspection, Yes normocephalic and Yes atraumatic Ears: hearing grossly normal bilaterally Eyes General: appearance normal, both eyes and all related structures Neck Neck: Yes normal visual inspection and Yes trachea midline Chest Chest palpation & inspection: normal inspection of the chest Resp Effort & Inspection: normal respiratory effort and able to speak in complete sentences Cardio Rate: regular rate GI Inspection: Yes normal to inspection General: Yes no CVA tenderness Back/Spine/Pelvis Back: no CVA tenderness Skin General skin exam: no rashes or lesions noted Neuro General: patient oriented x3 Extrem General: Yes normal to inspection Psych Appearance: grossly normal and well kempt Mental Status: mental status grossly normal Speech and movement: Normal speech and movement present and Clear speech present Affect: normal affect Attitude: cooperative Thought process: Normal thought process present Thought content: Normal thought content present Insight: Fair insight present (Psych) Judgement: Fair judgement present (Psych) Office Procedures Post Void Residual Post Residual Void Post Void Residual (PVR): 0 58002-Wuek Void Residual by ultrasound Results AMB Urinalysis, Automated UA Leukoctes 0 Karime/uL Last Edit by ISIDRO Casas on 05/20/24 08:40 UA Nitrite Negative Last Edit by ISIDRO Casas on 05/20/24 08:40 UA Urobilinogen 0.2 mg/dL Last Edit by ISIDRO Casas on 05/20/24 08:4 0 UA Protein 0 mg/dL Last Edit by ISIDRO Casas on 05/20/24 08:40 UA pH 6.5 Last Edit by ISIDRO Casas on 05/20/24 08:40 UA Blood 0 Moises/uL Last Edit by ISIDRO Casas on 05/20/24 08:40 UA Specific [place] 1.010 Last Edit by ISIDRO Casas on 05/20/24 08: 40 UA Ketone Negative Last Edit by ISIDRO Casas on 05/20/24 08:40 UA Bilirubin 0 mg/dL Last Edit by ISIDRO Casas on 05/20/24 08:40 UA Glucose 0 mg/dL Last Edit by ISIDRO Casas on 05/20/24 08:40 Results Reviewed Results Reviewed: Laboratory Last Values Urine pH (Auto) 6.5 05/20/24 08:39 Specific [place] (Auto) 1.010 05/20/24 08:39 Urine Protein (Auto) 0 mg/dL 05/20/24 08:39 Glucose (UA)(Auto) 0 mg/dL 05/20/24 08:39 Urine Ketones (Auto) Negative 05/20/24 08:39 Urine Blood (Auto) 0 Moises/uL 05/20/24 08:39 Urine Nitrite (Auto) Negative 05/20/24 08:39 Urine Bilirubin (Auto) 0 mg/dL 05/20/24 08:39 Urine Urobilinogen (Auto) 0.2 mg/dL 05/20/24 08:39 Leukocyte Esterase (Auto) 0 Karime/uL 05/20/24 08:39 Assessment & Plan Assessment & Plan (1) Incomplete bladder emptying: Code(s): R33.9 - Retention of urine, unspecified Category: Medical Plan In office urinalysis results with the patient today; as noted above. PVR 0 mL. We discussed potential causes of incomplete bladder emptying as well as further treatment options and risks and benefits of these treatment options. Continue to CIC as discussed Start terazosin 1 mg at bedtime as discussed and prescribed. We discussed attempting to double void to assist with incomplete bladder emptying. Follow-up in 3 months with PVR; or sooner with any issues, concerns, and or questions. Orders: Orders AMB Urinalysis Automated Today Z13.9 - Encounter for screening, unspecified Medications: New terazosin 1 mg PO BEDTIME 30 days 30 caps 3RF R39.12 - Poor urinary stream Patient Instructions: The patient had an opportunity to ask questions regarding the treatment plan. All questions were answered. Physical exam, labs, and imaging were discussed and reviewed in detail. As well as risks, benefits, and discussion of treatment choices. No major barriers to understanding were identified. The patient expressed understanding and agreement with the above treatment plan. The patient was made aware they should contact our office by phone for worsening of their current condition, the appearance of new symptoms, or with any questions or concerns. Compliance is encouraged with any medications and follow up testing that is ordered. It is a privilege to be allowed the opportunity to participate in? your urological care.? Again, if you have any questions or concerns If you have any questions or concerns please do not hesitate to contact me. The office is [phone]. This note is constructed using voice recognition software. While every effort has been made to ensure accuracy conventions assistant errors may have been included. Yours sincerely, LESVIA Levin-ALLEN Coding Level of Care Code Est Pt Level 4 (41084) Diagnoses Incomplete bladder emptying R33.9 CPT Codes Post Residual Void - PVR CPT Code: 27885-Lbln Void Residual by ultrasound ([id number])
== END 2024-05-20 08:53 | disposition home or self-care (01) ==
PROVIDERS: PCP Nurse Practitioner Family; Visit Provider Nurse Practitioner Family
DX: Z13.9 Encounter for screening, unspecified (principal); R33.9 Retention of urine, unspecified
CPT/HCPCS: 99214

== ENCOUNTER → 2024-05-20 08:24 | Outpatient (BNVA) | payer MEDICARE, SELFPAY | PROVIDERS: PCP Nurse Practitioner Family; Visit Provider Nurse Practitioner Family | DX: R33.9 Retention of urine, unspecified (principal) | CPT/HCPCS: 51798; 81003; 99212 ==

== ENCOUNTER 2024-06-11 09:56 | Outpatient (AMB) | payer MEDICARE, SELFPAY ==
[2024-06-11 09:57] VITALS: BP 122/74; PULSE 84; O2SAT 97; BMI 36.0
--- NOTE | 2024-06-11 09:57 | A.OFFPC_ITS ---
Vital Signs 06/11/24 09:57 Height 5 ft 4 in Weight 210 lb BMI 36.0 BP 122/74 Blood Pressure Location Rt brachial Position Sitting Pulse 84 Pulse Source Pulse Oximeter Pulse Oximetry (%) 97 Oxygen Delivery Method Room Air Intake Visit Reasons: 6 month f/u Intake Note: pt is here for 6 mon f/up Allergies No Known Allergies [No Known Allergies*] Allergy (Verified 06/11/24 10:05) Tobacco use date assessed: 06/11/24 Fall risk assessment: No Falls in past year Last assessed Fall Risk: 06/11/24 Dental Screening Dental Screen Date: 06/11/24 Did you have a dental visit in the last 12 months?: Yes Did you have a dental problem in the last 6 months where you did not have access to dental care?: No Was dental information given to patient?: Patient has dentist HPI 6 month f/u HPI Details Chief Complaint The patient reports ongoing lower back pain with radiating symptoms to bilateral extremities. History of Present Illness The patient is a 69-year-old female presenting with chronic lower back pain and sciatica. The patient has been experiencing lower back pain and radiculopathy symptoms affecting her bilateral lower extremities for several years. Approximately seven years ago, she sought injections for pain management, with plans for surgical intervention that were not executed. The patient does not recall the specifics of the intended surgical procedure, and complete medical records are unavailable. About two months prior to this visit, she completed a course of physical therapy for lower back pain and sciatica, which did not provide relief. She expressly denies symptoms indicative of cauda equina syndrome. Activities, such as heel and toe walking, exacerbate her symptoms, particularly on the left side.Patient had a positive depression screen though she is not actively suicidal reports that she has always had these I wish I can just disappear . Since she was a little girl. She is actually in fairly good spirits today and denies any active suicidal ideation or homicidal ideation. elevated tsh, pt knows she needs to take her thyroid medication daily as prescribed, then get labs 2 months after. Pt does report loss of hair. Social History - No social health determinants malik robledo Health Maintenance Review of Systems - Musculoskeletal: Reports increased low er back pain on movement. - Neurological: Denies any cauda equina- related symptoms. Physical Exam General: Cooperative, healthy appearing, comfortable, no acute distress and well developed Orientation: Patient oriented x3 Limitations: No limitations Head: Normal to inspection Ears: Hearing grossly normal bilaterally Nose: Normal external nose present Face and sinus: Normal facial exam Eyes: Appearance normal, both eyes and all related structures Neck: Normal visual inspection and Yes full ROM Respiratory: Normal respiratory effort and able to speak in complete sentences. Clear to auscultation bilaterally Cardiovascular: Regular rate and rhythm. Normal S1 and S2 GI: Normal to inspection. Soft to palpation and nontender Skin: No rashes or lesions noted Neuro: Patient oriented x3 Extremities: Increase in lower back pain with straight leg raises, radicular symptoms especially on the left side, and increased discomfort with heel and toe walking. Results Plan - Proceed with ordering an MRI to [facility] r assess chronic lower back pain and evaluate radicular symptoms. - Consider potential interventions follo wing MRI results, including revisiting options for pain management or surgical consultation if warranted based on findings. Patient was informed and verbally consented to the use of an ambient scribe for clinic note documentation during this visit. Discussion Notes I discussed the patient's chronic lower back pain and sciatica, emphasizing the importance of obtaining an MRI to further evaluate her condition, given her longstanding symptoms and prior incomplete intervention. I explained that the MRI will help in assessing the extent of any spinal issues contributing to her s ymptoms and guide future management strategies. The patient was informed about the potential next steps following the MRI results, which may include exploring pain management options or considering surgical consultation, if necessary. The patient agreed to proceed with the recommended diagnostic imaging. Patient Instructions - Understand that an MRI will be schedul ed to assess your back condition further. - Be prepared for potential follow-up di scussions based on MRI findings to address ongoing pain management or surgical options, if indicated. [facility] Medical History Chronic pain syndrome SVT (supraventricular tachycardia) Elevated cholesterol Obstructive sleep apnea of adult Nicotine dependence, cigarettes, uncomplicated Osteopenia GERD (gastroesophageal reflux disease) Tubular adenoma Depression with anxiety Sacroiliitis Arthritis Swelling of knee joint, left Tardive dyskinesia Surgical History History of colonoscopy History of hysterectomy History of rotator cuff surgery History of hand surgery History of cardiac radiofrequency ablation (RFA) Family History Father Mental health disorder Paternal Grandfather Mental health disorder Daughter Mental health disorder Mother Lung cancer Social History Household Members Other:: daughter Housing: House Are you a primary child care group leader to a significant other at home: No Do you presently have visiting nurse or other home services: No Patient Tobacco Use Status: Current everyday Tobacco user Tobacco use type: Cigarette Years Smoked: (onset 17yo, 1/2-1ppd x 50yrs, 35pyh) e-Cigarette/Vaping Use: Never Used Second Hand Smoke Exposure: No service: No Current occupational status: retired Current occupation: works part [employer] Current occupational exposures/hazards: No Cognitive needs: No Hearing needs: No Vision needs: Yes Questionnaire PHQ-9 Over the last 2 weeks, how often have you been bothered by any of the following problems? 1. Little interest or pleasure in doing things: several days 2. Feeling down, depressed, or hopeless: several days 3. Trouble falling or staying asleep, or sleeping too much: not at all 4. Feeling tired or having little energy: several days 5. Poor appetite or overeating: more than half the days 6. Feeling bad about yourself - or that you are a failure or have let yourself or your family down: more than half the days 7. Trouble concentrating on things, such as reading the newspaper or watching television: not at all 8. Moving or speaking so slowly that other people could have noticed. Or the opposite - being so fidgety or restless that you have been moving around a lot more than usual: several days 9. Thoughts that you would be better off or of hurting yourself in some way: several days Total score: 9 Depression Screening Interpretation: Positive Depression Screening Follow-up: Existing condition and In treatment Depression Screening Done: Yes 60311 - PHQ-9 Billing: Yes Source: Developed by Drs. Callum Valdivia, Sarah Roberts, Jaime Harrison and colleagues, with an educational sigrid from [employer]. Thrive Questionnaire Date Thrive assessed: 06/11/24 I am a: Patient What is your living situation today?: I have a place to live, but I am worried a bout losing it in the future Within the past 12 months, did the food you bought not last and you didn't have the money to get more?: Often true Within the past 12 months, did you worry whether your food would run out before you got money to buy more?: Often true Do you have trouble paying for medicines?: Yes Do you have trouble getting transportation to medical appointments?: No Do you have trouble paying your heating and electricity bill?: Yes Do you have trouble taking care of your child, family member or friend?: No Do you have trouble with day-to-day activities such as bathing, preparing meals, shopping, managing finances, etc.?: No Are you currently unemployed and looking for a job?: No Are you interested in more education?: No Please select the resources that you would like help with: Paying for medicine Currently or been in a relationship where the following occur: No concerns reported THRIVE Score: 4 AUDIT C Alcohol Use Questionnaire (AUDIT-C) 1. How often do you have a drink containing alcohol?: Never 2. How many drinks containing alcohol do you have on a typical day when you are drinking?: 1 or 2 3. How often do you have six or more drinks on one occasion?: Never Total Score: 0 Score Reviewed/Action Taken: Yes GIBRAN-7 AMB Questionnaire GIBRAN-7 Date GIBRAN - 7 assessed: 06/11/24 Feeling nervous, anxious, or on edge: 1 = Several days Not being able to stop or control worryin = Nearly every day Worrying too much about different things: 3 = Nearly every day Trouble relaxin = Several days Being so restless that it is hard to sit still: 0 = Not at all Becoming easily annoyed or irritable: 0 = Not at all Feeling afraid as if something awful might happen: 0 = Not at all Total GIBRAN-7 score (0-4 normal; 5-9 mild; 10-14 moderate; 15-21 severe): 8 Source: Developed by Drs. Callum Valdivia, Sarah Roberts, Jaime Harrison and colleagues, with an educational sigrid from [employer]. GIBRAN-7 Assessment Billing GIBRAN-7 Assessment Tool: GIBRAN-7 Assessment 13532 Physical exam (Primary Care) Vital Signs: Last Vital Signs Pulse 84 06/11/24 09:57 BP 122/74 06/11/24 09:57 Pulse Ox 97 06/11/24 09:57 Oxygen Delivery Method Room Air 06/11/24 09:57 BMI result Body Mass Index 36.0 Tobacco/Smoking Status: Tobacco use Status Tobacco use date assessed 06/11/24 06/11/24 10:09 Patient Tobacco Use Status Current everyday Tobacco 06/11/24 09:59 Tobacco use type Cigarette 06/11/24 09:59 e-Cigarette/Vaping Use Never Used 06/11/24 09:59 PHQ-9: PHQ-9 Score PHQ-9: Total score 9 06/11/24 10:09 Depression Screening Interpretation: Positive Depression Screening Follow-up: Existing condition and In treatment Thrive Assessment: Date of Thrive Assessment Date Thrive assessed 06/11/24 06/11/24 10:09 Currently or been in a relationship where the following occur: No concerns reported Coding Level of Care Code Est Pt Level 3 (16585) Diagnoses Elevated TSH Vitamin D deficiency E55.9 Chronic radicular pain of lower back M54.16; G89.29 Additional Codes GIBRAN-7 Assessment Billing - GIBRAN-7 Assessment Tool: GIBRAN-7 Assessment 72866 ([id number]) PHQ-9 - 77189 - PHQ-9 Billing: Yes ([id number]) Assessment & Plan Assessment & Plan (1) Elevated TSH: Code(s): . - Other specified abnormal findings of blood chemistry Category: Medical (2) Vitamin D deficiency: Code(s): E55.9 - Vitamin D deficiency, unspecified Category: Medical (3) Chronic radicular pain of lower back: Code(s): M54.16 - Radiculopathy, lumbar region; G89.29 - Other chronic pain Category: Medical Plan . Orders: Orders Complete Blood Count Auto Diff Today - Other specified abnormal findings of blood chemistry UA CC w/rflx Micro + Cult Today - Other specified abnormal findings of blood chemistry Lipid Panel Today - Other specified abnormal findings of blood chemistry Comprehensive [place]. Panel Fast Today - Other specified abnormal findings of blood chemistry TSH reflex Free T4 Today - Other specified abnormal findings of blood chemistry Vitamin D 25-OH Total Today E55.9 - Vitamin D deficiency, unspecified
== END 2024-06-11 10:38 | disposition home or self-care (01) ==
PROVIDERS: Visit Provider Nurse Practitioner Family
DX: R79.89 Other specified abnormal findings of blood chemistry (principal); E55.9 Vitamin D deficiency, unspecified; M54.16 Radiculopathy, lumbar region; G89.29 Other chronic pain

== ENCOUNTER → 2024-06-11 09:56 | Outpatient (BNVA) | payer MEDICARE, SELFPAY | PROVIDERS: Visit Provider Nurse Practitioner Family | DX: R79.89 Other specified abnormal findings of blood chemistry (principal); E55.9 Vitamin D deficiency, unspecified; M54.16 Radiculopathy, lumbar region; G89.29 Other chronic pain | CPT/HCPCS: 96127; 99212 ==

== ENCOUNTER 2024-06-30 08:02 | Outpatient (REF) | payer MEDICARE, SELFPAY ==
--- NOTE | ~2024-06-30 | MM_ITS ---
EXAMINATION: DXA BONE DENSITY AXIAL HISTORY: Estrogen deficiency TECHNIQUE: A.C. Moore Dual energy absorptiometry (DEXA) of the lumbar spine, total left hip, and femoral neck was performed. COMPARISON: Comparison is made with the prior examination dated 06/27/2022. FINDINGS: The bone mineral density of the lumbar spine is 1.114 with a T-score of -0.6, and a Z-score of 0.1. This represents a BMD change of -2.4% compared to the prior exam. This is not statistically significant. The bone mineral density of the left total hip is 0.854 with a T-score of -1.2, and a Z-score of -0.6. This represents BMD change of 1.5% compared to the prior exam. This is not statistically significant. The bone mineral density of the left femoral neck is 0.826 with a T-score of -1.5, and a Z-score of -0.6. This represents BMD change of -0.8% compared to the prior exam. FRACTURE RISK: The FRAX index suggests a ten year probability of major osteoporotic fracture of 14.1%, and of hip fracture 3.1%. MM/XR DEXA axial skeleton IMPRESSION: Based on bone mineral density, and according to World Health Organization (WHO) criteria, the diagnosis is consistent with osteopenia. All bone density values are in grams per centimeter squared (g/cm2). Statistically, 68% of repeat scans fall within 1 SD (+/- 0.010 g/cm2 for AP spine L1-L4) and 1 SD (+/- 0.012 g/cm2 for femur total) FRAX is a trademark of the [employer]'s [place] for Metabolic Bone Disease, a World Health Organization (WHO) Collaborating Center. Electronically signed by: Callum Ludwig MD 07/06/2024 11:14 AM [facility]
--- OUTSIDE RECORDS SUMMARY | 2024-06-30 08:09 | XMS_ITS | Patient Health Record ---
Author Organization [facility] Address [address] [facility] [address] [place] [address] Care Team Providers Care Rn First Assistant Name Role Phone Annette Fong Primary Care Provi celestine Unavailable Allergies Allergen (clinical drug ingredient) Drug/Non Drug Allergy documented on EMR Reaction Allergy Type Onset Date Status Seasonale Unknown Drug Allergy Active Reason For Referral No Information Medications Medication SIG (Take, Route, Frequency, Duration) Notes Start Date End Date Status Omeprazole 40 MG 1 capsule 30 minutes before morning meal Orally Once a day Active Nasacort Allergy 24HR 55 MCG/ACT 1 spray in each nostril Nasally Once a day Active Cetirizine HCl 10 MG 1 tablet Orally Onc e a day Active DULoxetine HCl 30 MG 1 capsule Orally On ce a day Active Vitamin B12 Active LORazepam 1 MG 1 tablet at bedtime as needed Orally bid prn Active Calcium + D Active Ziprasidone HCl 40 MG 1 capsule with mary d Orally at bed time Active buPROPion HCl ER (XL) 300 MG 1 tablet in the morning Orally Once a day Active Albuterol Sulfate 108 (90 Base) MCG/ACT 2 puff as needed Inhalation every 4 hrs Active Cholecalciferol Acti ve Ibuprofen 800 MG 1 tablet with food o r milk as needed Orally Three times a day Active [place] Fatty Acids-Vitamins Active DULoxetine HCl 60 MG 1 capsule Orally On ce a day Active Multivitamin Active Problems Problem Type SNOMED Code ICD Code Onset Dates Problem Status W/U Status Risk Notes Problem [id number] 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 [address] [place] [phone] [id number] Nereida Mcbride Self - patient is the insured Medical (General) History Medical History History ICD Code Vitamin D deficiency, unspecified E55.9 Gastro-esophageal reflux disease with es ophagitis, without bleeding K21.00 Spinal stenosis, cervical region M48.02 Spondylosis without myelopathy or radicu lopathy, cervical region M47.812 Chronic frontal sinusitis J32.1 Anxiety disorder, unspecified F41.9 Obesity, unspecified E66.9 Hyperlipidemia, unspecified E78.5 FIORDALIZA positive R76.8 Major depressive disorder, recurrent, un specified F33.9 Obstructive sleep apnea (adult) (pediatr ic) G47.33 Mild cognitive impairment, so stated G31 .84 Supraventricular tachycardia I47.1 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
--- OUTSIDE RECORDS SUMMARY | 2024-06-30 08:09 | XMS_ITS ---
Author Organization [facility] Address [address] [facility] [place] [address] Care Team Providers Care Process Coach Name Role Phone Buddy Bolden Primary Care Provider Unav ailable Leandro Harvey Unavailable [phone] Allergies Allergen (clinical drug ingredient) Drug/Non Drug [...] in the morning Orally Once a day for 30 day(s) Active DULoxetine HCl 30 MG 1 capsule Orally On ce a day for 30 day(s) both Not-Taking Ciclopirox 0.77 % 1 application to affected area Externally Twice a day to effected nails for 30 days Active DULoxetine HCl 60 MG 1 capsule Orally On ce a day for 30 day(s) both Active LORazepam 1 MG 1 tablet Orally Twic e a day Active Atorvastatin Calcium 20 MG 1 tablet Orally Once a day for 30 day(s) Active Levothyroxine Sodium Active Encounters Encounter Location Date Provider Diagnosis [facility] [address] [place] [address] 06/05/2024 Leandro Harvey Plan Of Treatment No Information Progress Notes * Nereida MCBRIDE ADOB:[birth year] (69 yo F)Acc No.[id number]:06/05/2024 Progress Note Patient:?Nereida MCBRIDE Provider:?Leandro Harvey DPM :1955???Age:69 Y???Sex:Female D ate:06/05/2024 Address:[address] [place], [place] [address] Pcp:DEB Mcclure Subjective: * Chief Complaints: * ??? * Medical History:?Anxiety, Ar thritis, Back,Hip,and Knee pain, sinusitis, Measles, Mumps, Chicken pox, Joint implants/screws, CAD (Cholesterol), Depression. * Medications:?Taking Levothyr oxine Sodium , Taking Atorvastatin Calcium 20 MG [...] a day , Notes to Pharmacist: both, Not- Taking/PRN Geodon 80 MG Capsule as directed Orally [...] tablets Orally Three times a day * Allergies:?Lyrica: dizziness . Objective: * Vitals:? Assessment: Plan: * Treatment: * Images: * The named appointment provid er may or may not be the originator of this progress note, and it is not deemed complete until electronically signed by the appointment provider. Sign off status: Pending * Provider:Marie Harvey DPM Date:?2024 Generated for Gale rogers/Anais/Cassie on:?06/30/2024 08:09 AM EST
--- OUTSIDE RECORDS SUMMARY | 2024-06-30 08:09 | XMS_ITS | Patient Health Record ---
[facility] Address [address] [facility] [place] [address] Care Team Providers Care Glass Artist Name Role Phone Buddy Bolden Primary Care Provider Unav ailable Leandro Harvey Unavailable [phone] Allergies Allergen (clinical drug ingredient) Drug/Non Drug Allergy documented on EMR Reaction Allergy Type Onset Date Status pregabalin Lyrica dizziness Drug Allergy Active Reason For Referral No Information Medications Medication SIG (Take, Route, Frequency, Duration) Notes Start Date End Date Status Atorvastatin Calcium 20 MG 1 tablet Orally Once a day for 30 day(s) Active buPROPion HCl ER (XL) 300 MG 1 tablet in the morning Orally Once a day for 30 day(s) Active Premarin 0.3 MG 1 tablet Orally Vira y for Three Weeks, 1 Week off Not-Taking Levothyroxine Sodium Active Wellbutrin 75 MG 2 tablets Orally Thr ee times a day Not-Taking Claritin 10 MG 1 tablet Orally Once a day Not-Taking Flonase 50 MCG/ACT 1 spray in each nost ril Nasally Once a day Not-Taking DULoxetine HCl 30 MG 1 capsule Orally On ce a day for 30 day(s) both Not-Taking Geodon 80 MG as directed Orally Not-Taking Ciclopirox 0.77 % 1 application to affected area Externally Twice a day to effected nails for 30 days Active DULoxetine HCl 60 MG 1 capsule Orally On ce a day for 30 day(s) both Active LORazepam 1 MG 1 tablet Orally Twic e a day Active Immunizations Vaccine Route Administration Date Status Comme nts COVID-19 Moderna Vaccine Unknown 10/04/2021 Administered 1st 07/19/20 2nd 08/16/20 3rd 03/25/21 Social History Tobacco Use: Social History Observation Description Date Details (start date - stop date) Current Smoker NA - NA Tobacco Use/Smoking Question Answer Notes Are you a: current smoker How often do you smoke cigarettes? every day How many cigarettes a day do you smoke? 5 or les s How soon after you wake up d o you smoke your first cigarette? after 60 minutes Are you interested in quitting? Thinking about q uitting Additional Findings: Tobacco User Light cigarett e smoker ((1-9 cigs/day) Alcohol Screen Question Answer Notes Did you have a drink contain ing alcohol in the past year? Yes How often did you have 6 or more drinks on one occasion in the past year? Less than monthly (1 point) Points 1 Interpretation Negative Tobacco use other than smoking: Question Answer Notes Are you an other tobacco user? No Problems Problem Type SNOMED Code ICD Code Onset Dates Problem Status W/U Status Risk Notes Problem Tinea unguium (668955782) Tinea unguium (B35.1) Active confirmed Response to treatment,Un resolved Problem Plantar wart (97340227) Plantar wart (B07.0) Active confirmed Vital Signs Height 5ft4in in 03/03/2024 Weight 208 lbs 03/03/2024 BMI 35.7 kg/m2 03/03/2024 Procedures Procedure Date Ordered Date Performed Result Body Sit e 56556-Hjto Destruction, 1-14 03/03/2024 N/A Encounters Encounter Location Date Provider Diagnosis [facility] [address] 03/03/2024 Leandro Harvey Tinea unguium B35.1 ; Pain in right toe(s) M79.674 ; Pain in left toe(s) M79.675 ; Plantar wart B07.0 and Left foot pain M79.672 [facility] [address] 09/18/2023 [facility] [address] 06/05/2024 Leandro Harvey Assessments Encounter Date Diagnosis (ICD Code) Assessment Notes Treatment Notes Treatment Clinical Notes Section Notes 03/03/2024 Tinea unguium (ICD-10 - B35.1) Response to treatment,Unres olved 03/03/2024 Pain in right toe(s) (ICD-10 - M79.674) 03/03/2024 Pain in left toe(s) (ICD-10 - M79.675) 03/03/2024 Plantar wart (ICD-10 - B07.0) 03/03/2024 Left foot pain (ICD-10 - M79.672) Plan Of Treatment Pending Test Test Name Order Date 01424-Huvr Destruction, 1-14 03/03/2024 60890- Removal of Foreign Body, Subcut 1 50,[id number] TENDON SHEATH/LIGAMENT 1 50,[id number] TENDON SHEATH/LIGAMENT 0 02/15/201441533,[id number] TENDON SHEATH/LIGAMENT 0 02/23/201436032,[id number] TENDON SHEATH/LIGAMENT 1 Insurance Providers Payer Name Payer Address Payer Phone Subscriber Number Group Number Insured Name Patient Relationship to Insured Coverage Start Date Coverage End Date Medicare National [employer] [address] [facility] [address] [id number] Rae Nereida Self - patient is the insured [employer] [address] [place] [address] [id number] Rae Nereida Self - patient is the insured Medical (General) History Medical History History ICD Code Anxiety Arthritis Back,Hip,and Knee pain sinusitis Measles Mumps Chicken pox Joint implants/screws CAD (Cholesterol) Depression Surgical History Surgery Date(Month/Year) rods in both shoulders Left SQ Plantar Fibroma/S.T. Mass (Unspe c) 09/2014 rotator cuff 2006 colonoscopy
--- OUTSIDE RECORDS SUMMARY | 2024-06-30 08:10 | XMS_ITS ---
Author Organization [facility] Address [address] [place] [address] Care Team Providers Care Bush Regenerator Name Role Phone Buddy Bolden Primary Care Provider Unav ailable Leandro Harvey Unavailable [phone] Martinez Encounters Encounter Location Date Provider Diagnosis [facility] [address] [place] [address] 03/10/2024 Leandro Harvey Plan Of Treatment No Information Progress Notes * Nereida MCBRIDE ADOB:[birth year] (69 yo F)Acc No.[id number]:03/10/2024 Progress Note Patient:?Nereida MCBRIDE Provider:?Leandro Harvey DPM :1955???Age:69 Y???Sex:Female D ate:03/10/2024 Address:[address] [id number] Pcp:DEB Mcclure Subjective: * Chief Complaints: * ???1. Dr Martinez. * Medical History:? Objective: * Vitals:? Assessment: Plan: * Treatment: * Images: * The named appointment provid er may or may not be the originator of this progress note, and it is not deemed complete until electronically signed by the appointment provider. Sign off status: Pending * Provider:?Leandro Harvey DPM Date:?2023 Generated for Gale rogers/Anais/Cassie on:?06/30/2024 08:09 AM EST
--- OUTSIDE RECORDS SUMMARY | 2024-06-30 08:10 | XMS_ITS ---
Author Organization [facility] Address [address] [place] [address] Care Team Providers Care Internal Medicine Veterinary Technician Name Role Phone Buddy Bolden Primary Care Provider Unav ailable Leandro Harvey Unavailable [phone] REASON FOR VISIT SD cx 1/3 Encounters Encounter Location Date Provider Diagnosis [facility] [address] [place] [address] 06/05/2024 Leandro Harvey Plan Of Treatment No Information Progress Notes * Nereida MCBRIDE ADOB:[birth year] (69 yo F)Acc No.[id number]:06/05/2024 Patient:?Nereida MCBRIDE :1955???Age:69 Y???Sex:Female Address:[address] [place], [address] * true * Date:? Generated for Printi sue/Anais/eTransmitting on:?06/30/2024 08:09 AM EST
== END 2024-06-30 08:03 | disposition home or self-care (01) ==
LOC: HO.MAMMO 08:02
PROVIDERS: PCP Nurse Practitioner Family; Visit Provider Nurse Practitioner Family
DX: Z13.820 Encounter for screening for osteoporosis (principal); Z78.0 Asymptomatic menopausal state; E55.9 Vitamin D deficiency, unspecified
CPT/HCPCS: 77080

== ENCOUNTER → 2024-06-30 08:15 | Outpatient (BNV) | payer MEDICARE, SELFPAY | PROVIDERS: PCP Nurse Practitioner Family; Visit Provider Radiology Diagnostic Radiology | DX: M85.89 Other specified disorders of bone density and structure, multiple sites (principal) | CPT/HCPCS: 77080 ==

== ENCOUNTER 2024-07-15 07:09 | Outpatient (REF) | payer MEDICARE, SELFPAY ==
[2024-07-15 07:20] LABS: MANUAL DIFF FLAG NO
[2024-07-15 07:37] LABS: Basophils Absolute Auto 0.1 X10*3/uL (0.0-0.2); Basophils Percent Auto 0.7 % (0-2); Eosinophils Absolute Auto 0.2 X10*3/uL (0.0-0.4); Eosinophils Percent Auto 2.5 % (0-4); Hematocrit 43.2 % (37.0-47.0); Hemoglobin 14.4 g/dl (12.0-16.0); Imm Gran Abs Auto 0.03 X10*3/uL (0.00-0.03); Imm Gran Pct Auto 0.4 % (0.0-0.4); Lymphocytes Absolute Auto 1.9 X10*3/uL (1.2-4.9); Lymphocytes Percent Auto 25.1 % (20-40); Mean Corpuscular HGB Conc 33.3 g/dl (31.0-35.0); Mean Corpuscular Hemoglobin 31.5 pg (27.0-33.0); Mean Corpuscular Volume 94.5 fL (80.0-98.0); Mean Platelet Volume 10.4 fL (9.4-12.3); Monocytes Absolute Auto 0.5 X10*3/uL (0.1-1.2); Neutrophils Absolute Auto 4.9 x10*3/uL (2.0-8.3); Neutrophils Percent Auto 64.3 % (45-73); Platelet Count 269 X10*3/uL (160-400); Red Blood Count 4.57 X10*6/uL (4.20-5.50); Red Cell Distribution Width 12.5 % (11.0-16.0); White Blood Count 7.5 X10*3/uL (4.8-10.8)
[2024-07-15 08:23] LABS: Alanine Aminotransferase 27 U/L (0-31); Albumin Level 4.2 g/dL (3.5-5.0); Anion Gap 10 (12-20); Aspartate Amino Transferase 26 U/L (5-31); Bilirubin Total 0.5 mg/dL (0.0-1.0); Blood Urea Nitrogen 14 mg/dL (9-16); Calcium 9.2 mg/dL (8.4-10.2); Carbon Dioxide 27 mmol/L (22-29); Chloride 110 mmol/L (96-108); Cholesterol 152 mg/dL (<200); Estimated Glomerular Filt Rate > 60; Glucose Fasting 116 mg/dL (60-99); HDL Cholesterol 57 mg/dL (>40); LDL Cholesterol Calculated 78 mg/dL (<100); Potassium 4.5 mmol/L (3.3-5.1); Sodium 142 mmol/L (135-145); Total Protein 7.5 g/dL (6.5-8.0); Triglycerides 85 mg/dL (<150)
[2024-07-15 08:36] LABS: Alkaline Phosphatase 84 U/L (39-117)
[2024-07-15 08:52] LABS: TSH reflex Free T4 3.96 uIU/mL (0.32-4.0); Vitamin D 25-OH Total 55.3 ng/mL (>30)
[2024-07-16 09:29] LABS: Thyroid Peroxidase Antibodies 2 IU/mL (<9)
== END 2024-07-15 07:10 | disposition home or self-care (01) ==
LOC: HO.LAB 07:09
PROVIDERS: PCP Nurse Practitioner Family; Visit Provider Nurse Practitioner Family
DX: R79.89 Other specified abnormal findings of blood chemistry (principal); E55.9 Vitamin D deficiency, unspecified
CPT/HCPCS: 36415; 80053; 80061; 82306; 84443; 85025; 86376

== ENCOUNTER 2024-07-29 08:50 | Outpatient (AMB) | payer MEDICARE, SELFPAY ==
--- NOTE | 2024-07-29 09:13 | A.OFFVIS_ITS ---
Vital Signs 07/29/24 09:33 Height 5 ft 4 in Weight 110 lb BMI 18.9 Intake Visit Reasons: O/V B/L hand pain Intake Note: Nereida Javier 69 yr old left hand dominant female presents today for mainly for her right hand however she is having CTS in bilateral hands. States both hands are as bad. States she is having trouble holding a blow dryer and has weakness. States her CTS is consistent. Also states her left ring and middle finger are locking and is very painful. She is also having muscle loss by her thenar eminence. She is s/p Left Hand & RF Partial Dup. Fac. 06/07/22 AR states he is doing very well since surgery. No EMG done. Allergies No Known Allergies [No Known Allergies*] Allergy (Verified 07/29/24 09:27) HPI HPI O/V B/L hand pain: Details: Nereida is a 69 year old left hand dominant woman who returns with complaints of bilateral hand numbness, R>L. 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 Symptoms intermittent, but daily, worse at night and becoming more constant. She says she is unable to open pill containers at home She also complains of some painful catching of her of her right middle and ring fingers fingers. She has a known Dupuytrens cord in her right hand. She has a Hx of a left ring finger partial fasciectomy, DOS: 06/07/22. She is happy with the results of her surgery. [facility] Medical History Chronic pain syndrome SVT (supraventricular tachycardia) Elevated cholesterol Obstructive sleep apnea of adult Nicotine dependence, cigarettes, uncomplicated Osteopenia GERD (gastroesophageal reflux disease) Tubular adenoma Depression with anxiety Sacroiliitis Arthritis Swelling of knee joint, left Tardive dyskinesia Surgical History History of colonoscopy History of hysterectomy History of rotator cuff surgery History of hand surgery History of cardiac radiofrequency ablation (RFA) Family History Father Mental health disorder Paternal Grandfather Mental health disorder Daughter Mental health disorder Mother Lung cancer Social History (Reviewed 07/29/24 @ 09:30 by AMADO Roldan Household Members Other:: daughter Housing: House Are you a primary foster care case manager to a significant other at home: No Do you presently have visiting nurse or other home services: No Patient Tobacco Use Status: Current everyday Tobacco user Tobacco use type: Cigarette Years Smoked: (onset 17yo, 1/2-1ppd x 50yrs, 35pyh) e-Cigarette/Vaping Use: Never Used Second Hand Smoke Exposure: No service: No Current occupational status: retired Current occupation: works part [employer] Current occupational exposures/hazards: No Cognitive needs: No Hearing needs: No Vision needs: Yes Review of Systems Const All systems reviewed & are unremarkable except as noted in HPI and below Physical Exam Vital Signs: BMI result Body Mass Index 18.9 Const General: no acute distress and alert Orientation/consciousness: patient oriented x3 Neuro General: patient oriented x3 Extrem Other: Evaluation of Bilateral Upper Extremity: The patient is alert, oriented, and in no acute distress Neuro: Decreased subjective sensation in the right median nerve distribution, normal sensation in the left median nerve distribution. Normal sensation in the ulnar nerve distribution bilaterally No thenar or intrinsic wasting Good APB muscle belly firing and good finger cross Vascular: Cap refill brisk ROM: She can make a fist and extend all her digits No locking or catching, no A1 kailey tenderness. No subluxation of the extensor tendons when she makes a fist. Right hand: There is a Dupuytrens cord in the right hand, extending from the mid-palm to the middle finger There is a Dupuytrens cord in the right hand, extending from the mid-palm to the ring finger Middle finger: MCP 5/PIP 0 Ring finger: MCP 5/PIP 0 Left hand: Ring finger: MCP 0/PIP 0 Psych Appearance: grossly normal Affect: normal affect Attitude: cooperative Assessment & Plan Assessment & Plan (1) Bilateral hand numbness: Code(s): R20.0 - Anesthesia of skin Category: Medical (2) Dupuytren's contracture of right hand: Code(s): M72.0 - Palmar fascial fibromatosis [Dupuytren] Category: Medical Plan Assessment & Plan: 1. Bilateral hand numbness In the median nerve distribution, unsure about small finger involvement Symptoms intermittent, but daily, worse at night & becoming more frequent Decreased subjective sensation in the right median nerve distribution I ordered a NCS to assess for peripheral nerve compression She will follow up when completed for review 2. Right middle finger Dupuytrens contracture MCP 5/PIP 0 3. Right ring finger Dupuytrens contracture MCP 5/PIP 0 We will manage this non-operatively at this time She can follow up to discuss possible treatment options in the future I encouraged her to continue working on ROM, including flattening her palm on a hard surface and other stretching exercises 4. Left Dupuytrens contracture of ring finger, S/P partial fasciectomy Pre-operatively: MCP 45/PIP 0 Postoperatively: MCP 0/PIP 0 Doing well, no complaints Scribed for Radha Green MD by Pillo Winter, medical record administrator, on 07/29/24 at 9:35 AM, EST. Orders: Orders NE nerve conduction velocity Today R20.0 - Anesthesia of skin, R20.2 - Paresthesia of skin Coding Level of Care Code Est Pt Level 4 (26354) Diagnoses Bilateral hand numbness R20.0 Dupuytren's contracture of right hand M72.0
[2024-07-29 09:33] VITALS: BMI 18.9
--- OUTSIDE RECORDS SUMMARY | 2024-07-29 09:34 | XMS_ITS | Encounter Summary ---
Author Organization [facility] Address [address] [place] [address] Care Team Providers Care Staff Toxicologist Name Role Phone Celina Mann DO Primary Care Pro vider Unavailable Mercedes Han MD Primary Care Provider [phone] Callum Hernandez DO Primary Care Provider Lopez Lu MD Primary Care Provider Buddy Foy NP Primary Care Provider Unavail [facility] Pcp Primary Care Provider Buddy Marlow NP Primary Care Provider Unavail able Encounter Details Date Type Department Care Team Description 06/21/2017 Pedigree Tracer Report Medical Records [address] [place] [address] Marko Ham I., PH.D Social History Tobacco Use Types Packs/Day Years Used Date Smoking Tobacco: Light Smoker Cigarettes 25 Smokeless Tobacco: Never Comments:6 cigarettes daily Alcohol Use Standard Drinks/Week Comments No 0 (1 standard drink = 0.6 oz pur e alcohol) rare Sex Assigned at Date Recorded Not on file Job Start Date Occupation Industry Not on file Not on file Not on file documented as of this encounter Plan of Treatment Not on file documented as of this encounter Visit Diagnoses Not on filedocumented in this encounter Care Teams Staff Toxicologist Relationship Specialty Start Date End Date Celina Mann DO PCP - General Internal Medicine 03/21/16 11/23/20 Mercedes Han MD [address] [place] [address] PCP - General Internal Medicine 11/24/20 01/11/21 Callum Hernandez DO [address] [place] [address] PCP - General Internal Medicine 01/12/21 03/19/21 Lopez Brennan MD [address] [place] [address] PCP - General Internal Medicine 03/20/21 10/19/21 Buddy Shaw NP [address] [place] [address] PCP - General Family Practice 10/20/21 01/04/22 [facility], Pcp [address] [place] [address] PCP - General Internal Medicine 01/05/22 11/28/22 Buddy Shaw NP [address] [place] [address] PCP - General Family Practice 11/29/22 documented as of this encounter
--- OUTSIDE RECORDS SUMMARY | 2024-07-29 09:35 | XMS_ITS | Encounter Summary ---
Author Organization [facility] Address [address] [place] [address] Care Team Providers Care Check Writer Name Role Phone Celina Mann DO Primary Care Pro vider Unavailable Mercedes Han MD Primary Care Provider [phone] Callum Hernandez DO Primary Care Provider Lopez Lu MD Primary Care Provider Buddy Foy NP Primary Care Provider Unavail able [facility] Primary Care Provider Buddy Marlow NP Primary Care Provider Unavail able Reason for Referral * Non FARAZ (Routine) - Unable to reach/declined Specialty Diagnoses / Procedures Referred By Kailey dominguez Referred To Contact Podiatry Procedures REFERRAL TO PODIATRY (IN NETWORK) Janet Medina PA-C [address] [place] [address] [address] [address] Referral ID Status Reason Start Date Expiration Date V isits Requested Visits Authorized [id number] Unable to reach/decli nathaly 12/23/2018 1 1 Encounter Details Date Type Department Care Team Description 12/19/2018 Telephone Adult Medicine [place] [address] [address] Janet Medina PA-C Social History Tobacco Use Types Packs/Day Years Used Date Smoking Tobacco: Light Smoker Cigarettes 0 25 Started: 1972 Smokeless Tobacco: Never Comments:4 cigarettes daily Alcohol Use Standard Drinks/Week Comments Yes 0 (1 standard drink = 0.6 oz pur e alcohol) 3 drinks per yr Sex Assigned at Date Recorded Not on file Job Start Date Occupation Industry Not on file Not on file Not on file documented as of this encounter Miscellaneous Notes * Telephone Encounter - Janet Medina PA-C - 12/23/2018 8:57 AM EDT ordered * Telephone Encounter - Lea Mcpherson - 12/19/2018 10:29 AM EDT Aden Gonzales ankle xray patient has PLANTAR SPUR. Alfie redirect her to podiatry instead ortho. I pended a new order, please review and sign Thank you Lea Villanueva Orthopedic Referrals Navigator [facility] [place] [phone] or ext [phone] documented in this encounter Plan of Treatment Not on file documented as of this encounter Visit Diagnoses Not on filedocumented in this encounter Care Teams Check Writer Relationship Specialty Start Date End Date Celina Mann DO PCP - General Internal Medicine 03/21/16 11/23/20 Mercedes Han MD [address] [place] [address] PCP - General Internal Medicine 11/24/20 01/11/21 Callum Hernandez DO [address] [place] [address] PCP - General Internal Medicine 01/12/21 03/19/21 Lopez Brennan MD [address] [place] [address] PCP - General Internal Medicine 03/20/21 10/19/21 Buddy Shaw NP [address] [place] [address] PCP - General Family Practice 10/20/21 01/04/22 [facility] [address] [place] [address] PCP - General Internal Medicine 01/05/22 11/28/22 Buddy Shaw NP [address] [place] [address] PCP - General Family Practice 11/29/22 documented as of this encounter
--- OUTSIDE RECORDS SUMMARY | 2024-07-29 09:35 | XMS_ITS | Encounter Summary ---
Author Organization [facility] Address [address] [place] [address] Care Team Providers Care Pneumatic Drum Sander Name Role Phone Celina Mann DO Primary Care Pro vider Unavailable Mercedes Han MD Primary Care Provider [phone] Callum Hernandez DO Primary Care Provider Lopez Lu MD Primary Care Provider Buddy Foy NP Primary Care Provider Unavail [facility] Pcp Primary Care Provider Buddy Marlow NP Primary Care Provider Unavail able Encounter Details Date Type Department Care Team Description 04/15/2017 Pt. Non Urgent Medic al Question Adult Medicine [address] [address] Celina Mann DO Social History Tobacco Use Types Packs/Day Years [...] on file documented as of this encounter Progress Notes * Debby Sanders M.A. - 04/15/2017 10:34 AM ESTFrom: Nereida Goddard To: Celina Ulloa DO Sent: 04/15/2017 10:03 AM EST Subject: Burning Dear Celina Over the past month and half, I have been experiencing a burning sensation below my right arm pit. The burning is new starting on the left side. It is painful. Should I make an appointment to see you? Thank you Arianna Goddard documented in this encounter Plan of Treatment Not on file documented as of this encounter Visit Diagnoses Not on filedocumented in this encounter Care Teams Pneumatic Drum Sander Relationship Specialty Start Date End Date Celina Mann DO PCP - General Internal Medicine 03/21/16 11/23/20 Mercedes Han MD [address] [place] [address] PCP - General Internal Medicine 11/24/20 01/11/21 Callum Hernandez DO [address] [place], [place] [phone] PCP - General Internal Medicine 01/12/21 03/19/21 Lopez Brennan MD [address] [place], [place] [id number] PCP - General Internal Medicine 03/20/21 10/19/21 Buddy Shaw NP [address] [place] [address] PCP - General Family Practice 10/20/21 01/04/22 [place] [id number] PCP - General Internal Medicine 01/05/22 11/28/22 Buddy Shaw NP [address] [place] [address] PCP - General Family Practice 11/29/22 documented as of this encounter
--- OUTSIDE RECORDS SUMMARY | 2024-07-29 09:35 | XMS_ITS | Encounter Summary ---
Author Organization [facility] Address [address] [place] [address] Care Team Providers Care Order Picker/Assembler Name Role Phone Celina Mann DO Primary Care Pro vider Unavailable Mercedes Han MD Primary Care Provider [phone] Callum Hernandez DO Primary Care Provider Lopez Lu MD Primary Care Provider Buddy Foy NP Primary Care Provider Unavail [facility] Pcp Primary Care Provider Buddy Marlow NP Primary Care Provider Unavail able Encounter Details Date Type Department Care Team Description 01/01/2020 Pt. Non Urgent Medic al Question Adult Medicine [address] [address] Celina Mann DO Social History Tobacco Use [...] encounter Miscellaneous Notes * Telephone Encounter - Rose Lozada M.A. - 01/01/2020 11:11 AM EDTFrom: Nereida Goddard To: Celina Ulloa DO Sent: 01/01/2020 9:40 AM EDT Subject: Allergy Medication Why was my refill for allergy medication denied documented in this encounter Plan of Treatment Not on file documented as of this encounter Visit Diagnoses Not on filedocumented in this encounter Care Teams Order Picker/Assembler Relationship Specialty Start Date End Date Celina Mann DO PCP - General Internal Medicine 03/21/16 11/23/20 Mercedes Han MD [address] [place] [address] PCP - General Internal Medicine 11/24/20 01/11/21 Callum Hernandez DO [address] [place] [address] PCP - General Internal Medicine 01/12/21 03/19/21 Lopez Brennan MD [address] [place] [address] PCP - General Internal Medicine 03/20/21 10/19/21 Buddy Shaw NP [address] [place] [address] PCP - General Family Practice 10/20/21 01/04/[address] [address] PCP - General Internal Medicine 01/05/22 11/28/22 Buddy Shaw NP [address] [place] [address] PCP - General Family Practice 11/29/22 documented as of this encounter
--- OUTSIDE RECORDS SUMMARY | 2024-07-29 09:35 | XMS_ITS | Encounter Summary ---
Author Organization [facility] Address [address] [place] [address] Care Team Providers Care Extraction Supervisor Name Role Phone Celina Mann DO Primary Care Pro vider Unavailable Mercedes Han MD Primary Care Provider [phone] Callum Hernandez DO Primary Care Provider Lopez Lu MD Primary Care Provider Buddy Foy NP Primary Care Provider Unavail able [facility] Pcp Primary Care Provider Buddy Marlow NP Primary Care Provider Unavail able Encounter Details Date Type Department Care Team Description 04/24/2019 Pt. Non Urgent Medic al Question Adult Medicine [address] [address] Celina Mann DO Social History Tobacco Use [...] Telephone Encounter - Rose Lozada M.A. - 04/24/2019 12:00 PM ESTFrom: Nereida Goddard To: Celina Ulloa DO Sent: 04/24/2019 11:47 AM EST Subject: Sciatica Dear Dr. I called [facility] and spoke with a nurse mattress spring encaser for my pain management request. shesaid that my insurance didn't cover out of networking, I would need a request form my practitioner and they would decide if it would be approved. I will wait to receive my appointment for in network pain management. what should-be I'm assuming coming in the mail. I realize your hands are tied and everything depends on health insurance but at this point I'm just very upset my leg is weak I called in sick today because there's no way I'm going to be able to stand on my feet for 4 hours I. My sleep is so broken. the pain is debilitating. My entire right side, hips, buttocks. thigh, calf, knee, and ankle. I feel helpless and frustrated. documented in this encounter Plan of Treatment Not on file documented as of this encounter Visit Diagnoses Not on filedocumented in this encounter Care Teams Extraction Supervisor Relationship Specialty Start Date End Date Celina Mann DO PCP - General Internal Medicine 03/21/16 11/23/20 Mercedes Han MD [address] [place] [address] PCP - General Internal Medicine 11/24/20 01/11/21 Callum Hernandez DO [address] [place] [address] PCP - General Internal Medicine 01/12/21 03/19/21 Lopez Brennan MD [address] [place] [address] PCP - General Internal Medicine 03/20/21 10/19/21 Buddy Shaw NP [address] [place] [address] PCP - General Family Practice 10/20/21 01/04/22 Naresh, Jan [address] [place] [address] PCP - General Internal Medicine 01/05/22 11/28/22 Buddy Shaw NP [address] [place] [address] PCP - General Family Practice 11/29/22 documented as of this encounter
--- OUTSIDE RECORDS SUMMARY | 2024-07-29 09:35 | XMS_ITS | Encounter Summary ---
Author Organization [facility] Address [address] [place] [address] Care Team Providers Care Mat Inspector Name Role Phone Celina Mann DO Primary Care Pro vider Unavailable Mercedes Han MD Primary Care Provider [phone] Callum Hernandez DO Primary Care Provider Lopez Lu MD Primary Care Provider Buddy Foy NP Primary Care Provider Unavail able [facility], Pcp Primary Care Provider uBddy Marlow NP Primary Care Provider Unavail able Encounter Details Date Type Department Care Team Description 03/22/2018 Pt. Non Urgent Medical Question Pulmonology - [place] [address] [place] [id number] Eula Norris FNP [address] [place] [address] Social History Tobacco Use Types Packs/Day Years Used Date Smoking Tobacco: Heavy Smoker Cigarettes 0 25 Started: 1972 Smokeless Tobacco: Never Comments:4 cigarettes daily Alcohol Use Standard Drinks/Week Comments Yes 0 (1 standard drink = 0.6 oz pur e alcohol) 3 drinks per yr Sex Assigned at Date Recorded Not on file Job Start Date Occupation Industry Not on file Not on file Not on file documented as of this encounter Progress Notes * LESVIA Lujan - 03/23/2018 7:49 AM EDTFrom: Nereida Goddard To: LESVIA Lujan Sent: 03/22/2018 11:26 AM EDT Subject: Equipment...Nereida Forde I'm just wondering if you had a chance to send over my sleep test their waiting on something from you I still haven't received any replacement parts yet please get back to me and give me an update on the situation thank You Eula sincerely appreciate Nitza documented in this encounter Plan of Treatment Not on file documented as of this encounter Visit Diagnoses Not on filedocumented in this encounter Care Teams Mat Inspector Relationship Specialty Start Date End Date Celina Mann DO PCP - General Internal Medicine 03/21/16 11/23/20 Mercedes Han MD [address] [place] [address] PCP - General Internal Medicine 11/24/20 01/11/21 Callum Hernandez DO [address] [place] [address] PCP - General Internal Medicine 01/12/21 03/19/21 Lopez Brennan MD [address] [place] [address] PCP - General Internal Medicine 03/20/21 10/19/21 Buddy Shaw NP [address] [place] [address] PCP - General Family Practice 10/20/21 01/04/[address] [address] PCP - General Internal Medicine 01/05/22 11/28/22 Buddy Shaw NP [address] [place] [address] PCP - General Family Practice 11/29/22 documented as of this encounter
--- OUTSIDE RECORDS SUMMARY | 2024-07-29 09:35 | XMS_ITS | Encounter Summary ---
Author Organization [facility] Address [address] [place] [address] Care Team Providers Care Supervisor Opening And Picking Name Role Phone Celina Mann DO Primary Care Pro vider Unavailable Mercedes Han MD Primary Care Provider [phone] Callum Hernandez DO Primary Care Provider Lopez Lu MD Primary Care Provider Buddy Foy NP Primary Care Provider Unavail [facility] Pcp Primary Care Provider Buddy Marlow NP Primary Care Provider Unavail able Encounter Details Date Type Department Care Team Description 07/29/2019 Insurance Underwriter Report Medical Records [address] [place] [id number] Maddy Iraheta NP Social History Tobacco Use Types Packs/Day Years [...] on filedocumented in this encounter Care Teams Supervisor Opening And Picking Relationship Specialty Start Date End Date Celina Mann DO PCP - General Internal Medicine 03/21/16 11/23/20 Mercedes Han MD [address] [place] [address] PCP - General Internal Medicine 11/24/20 01/11/21 Callum Hernandez DO [address] [place] [address] PCP - General Internal Medicine 01/12/21 03/19/21 Lopez Brennan MD [address] [place] [address] PCP - General Internal Medicine 03/20/21 10/19/21 Buddy Shaw NP [address] [place] [address] PCP - General Family Practice 10/20/21 01/04/22 [facility], Pcp [address] [place] [address] PCP - General Internal Medicine 01/05/22 11/28/22 Buddy Shaw NP [address] [place] [address] PCP - General Family Practice 11/29/22 documented as of this encounter
--- OUTSIDE RECORDS SUMMARY | 2024-07-29 09:35 | XMS_ITS | Encounter Summary ---
[facility] Organization [facility] Address [address] [place] [address] Care Team Providers Care Stable Manager Name Role Phone Celina Mann DO Primary Care Pro vider Unavailable Mercedes Han MD Primary Care Provider [phone] Callum Hernandez DO Primary Care Provider Lopez Lu MD Primary Care Provider Buddy Foy NP Primary Care Provider Unavail able [facility], Pcp Primary Care Provider UnavailBuddy Stephen NP Primary Care Provider Unavail able Reason for Visit * Reason Onset Date Comments REFERRAL 03/15/2018 Encounter Details Date Type Department Care Team Description 03/15/2018 Telephone Gastroenterology - [address] [address] Ignacio Mcleod MD REFERRAL Social History Tobacco Use Types Packs/Day Years [...] encounter Miscellaneous Notes * Telephone Encounter - Ignacio Mcleod MD - 03/17/2018 12:16 PM EDT Chart reviewed, does not. * Telephone Encounter - Ronna Hernandez - 03/15/2018 8:47 AM EDT Patient has been referred for Gerd/Reflux. She has a scheduled colonoscopy on 04/15/[address] Mcleod. Please review if patient needs to be seen before her colonoscopy? documented in this encounter Plan of Treatment Not on file documented as of this encounter Visit Diagnoses Not on filedocumented in this encounter Care Teams Stable Manager Relationship Specialty Start Date End Date Celina Mann DO PCP - General Internal Medicine 03/21/16 11/23/20 Mercedes Han MD [address] [place] [address] PCP - General Internal Medicine 11/24/20 01/11/21 Callum Hernandez DO [address] [place] [address] PCP - General Internal Medicine 01/12/21 03/19/21 Lopez Brennan MD [address] [place] [address] PCP - General Internal Medicine 03/20/21 10/19/21 Buddy Shaw NP [address] [place] [address] PCP - General Family Practice 10/20/21 01/04/22 [facility], [place] [id number] PCP - General Internal Medicine 01/05/22 11/28/22 Buddy Shaw NP [address] [place] [address] PCP - General Family Practice 11/29/22 documented as of this encounter
--- OUTSIDE RECORDS SUMMARY | 2024-07-29 09:35 | XMS_ITS | Encounter Summary ---
Author Organization [facility] Address [address] [place] [address] Care Team Providers Care Oracle Bpm Consultant Name Role Phone Celina Mann DO Primary Care Pro vider Unavailable Mercedes Han MD Primary Care Provider [phone] Callum Hernandez DO Primary Care Provider Lopez Lu MD Primary Care Provider Buddy Foy NP Primary Care Provider Unavail able [facility], [facility]cp Primary Care Provider Buddy Marlow NP Primary Care Provider Unavail able Reason for Visit * Reason Onset Date Comments Call From Hospital 02/28/2017 Encounter Details Date Type Department Care Team Description 02/28/2017 Telephone Adult Medicine [address] [address] Celina Mann DO Call From Hospital Social History Tobacco Use Types Packs/Day Years [...] encounter Miscellaneous Notes * Telephone Encounter - Carolyne Gan Rn - 02/28/2017 11:46 AM EDT Call to pt. Spoke to pt she is on her way to [facility], * Telephone Encounter - Darlenemanas Pineda - 02/28/2017 11:27 AM EDT Alisha a Public Health nurse in [place] gave following info Symptoms patient is presenting: low leg swelling ,tingling in hands 3lb weight gain since last night per alisha. Alisha states she instructing pt to go to [facility] Pt can be reached @ [phone] If pain or injury related was it due to an accident at work or from a motor vehicle accident? no Date of accident/Injury: NA How long has patient had these symptoms?: last night PCP: Celina Fong Payor: [employer] [place] / Plan: CeannateO $25 [place] [id number] / Product Type: HMO [id number] documented in this encounter Plan of Treatment Not on file documented as of this encounter Visit Diagnoses Not on filedocumented in this encounter Care Teams Oracle Bpm Consultant Relationship Specialty Start Date End Date Celina Mann DO PCP - General Internal Medicine 03/21/16 11/23/20 Mercedes Han MD [address] [place] [address] PCP - General Internal Medicine 11/24/20 01/11/21 Callum Hernandez DO [address] [place] [address] PCP - General Internal Medicine 01/12/21 03/19/21 Lopez Brennan MD [address] [place] [address] PCP - General Internal Medicine 03/20/21 10/19/21 Buddy Shaw NP [address] [place] [address] PCP - General Family Practice 10/20/21 01/04/22 [facility] Pcp [address] [place] [address] PCP - General Internal Medicine 01/05/22 11/28/22 Buddy Shaw NP [address] [place], [place] [address] PCP - General Family Practice 11/29/22 documented as of this encounter
--- OUTSIDE RECORDS SUMMARY | 2024-07-29 09:35 | XMS_ITS | Encounter Summary ---
Author Organization [facility] Address [address] [place] [address] Care Team Providers Care Technology Engineer Name Role Phone Luciano Skinner MD Primary Care Provider Katherine Blake Bourgeois MD Primary Care Provider Unavail able Celina Mann DO Primary Care Pro vider Unavailable Mercedes Han MD Primary Care Provider [phone] Celina Mann DO Primary Care Pro vider Unavailable Mercedes Han MD Primary Care Provider [phone] Callum Hernandez DO Primary Care Provider Katherine Lopez Aragon MD Primary Care Provider UnaBuddy Castellanos NP Primary Care Provider Unavail able [facility], Pcp Primary Care Provider UnavailBuddy Stephen NP Primary Care Provider Unavail able Encounter Details Date Type Department Care Team Description 10/01/2013 Hospital Medical Records [address] [place] [address] Nilton Kumar Social History Tobacco Use Types Packs/Day Years [...] on filedocumented in this encounter Care Teams Technology Engineer Relationship Specialty Start Date End Date Luciano Skinner MD PCP - General 12/13/10 05/10/14 Blake Rivera MD PCP - General Internal Medicine 05/11/14 03/03/15 Celina Mann, PCP - General Internal Medicine 03/04/15 02/06/16 Mercedes Han MD [address] [place] [address] PCP - General Internal Medicine 02/07/16 03/20/16 Celina Mann, PCP - General Internal Medicine 03/21/16 11/23/20 Mercedes Han MD [address] [place] [address] PCP - General Internal Medicine 11/24/20 01/11/21 Callum Hernnadez DO [address] [place] [address] PCP - General Internal Medicine 01/12/21 03/19/21 Lopez Brennan MD [address] [place] [address] PCP - General Internal Medicine 03/20/21 10/19/21 Buddy Shaw NP [address] [place] [address] PCP - General Family Practice 10/20/21 01/04/22 [facility], [address] [address] PCP - General Internal Medicine 01/05/22 11/28/22 Buddy Shaw NP [address] [place] [address] PCP - General Family Practice 11/29/22 documented as of this encounter
--- OUTSIDE RECORDS SUMMARY | 2024-07-29 09:35 | XMS_ITS | Encounter Summary ---
Author Organization [facility] Address [address] [place] [address] Care Team Providers Care Network Operations Lead Name Role Phone Luciano Skinner MD Primary Care Provider Katherine Blake Bourgeois MD Primary Care Provider Unavail able Celina Mann DO Primary Care Pro vider Unavailable Mercedes Han MD Primary Care Provider [phone] Celina Mann DO Primary Care Pro vider Unavailable Mercedes Han MD Primary Care Provider [phone] Callum Hernandez DO Primary Care Provider Katherine Lopez Aragon MD Primary Care Provider UnaBuddy Castellanos NP Primary Care Provider Unavail able [facility], Pcp Primary Care Provider UnavailBuddy Stephen NP Primary Care Provider Unavail able Encounter Details Date Type Department Care Team Description 10/02/2013 Hospital Medical Records [address] [place] [address] Danica Rojo Social History Tobacco Use Types Packs/Day Years [...] on filedocumented in this encounter Care Teams Network Operations Lead Relationship Specialty Start Date End Date Luciano Skinner MD PCP - General 12/13/10 05/10/14 Blake Rivera MD PCP - General Internal Medicine 05/11/14 03/03/15 Celina Mann, PCP - General Internal Medicine 03/04/15 02/06/16 Mercedes Han MD [address] [place] [address] PCP - General Internal Medicine 02/07/16 03/20/16 Celina Mann, PCP - General Internal Medicine 03/21/16 11/23/20 Mercedes Han MD [address] [place] [address] PCP - General Internal Medicine 11/24/20 01/11/21 Callum Hernandez DO [address] [place] [address] PCP - General Internal Medicine 01/12/21 03/19/21 Lopez Brennan MD [address] [place] [address] PCP - General Internal Medicine 03/20/21 10/19/21 Buddy Shaw NP [address] [place] [address] PCP - General Family Practice 10/20/21 01/04/22 [facility], [address] [address] PCP - General Internal Medicine 01/05/22 11/28/22 Buddy Shaw NP [address] [place] [address] PCP - General Family Practice 11/29/22 documented as of this encounter
--- OUTSIDE RECORDS SUMMARY | 2024-07-29 09:35 | XMS_ITS | Encounter Summary ---
Author Organization [facility] Address [address] [place] [address] Care Team Providers Care Trade Embalmer Name Role Phone Celina Mann DO Primary Care Pro vider Unavailable Mercedes Han MD Primary Care Provider [phone] Callum Hernandez DO Primary Care Provider Lopez Lu MD Primary Care Provider Buddy Foy NP Primary Care Provider Unavail able [facility], Pcp Primary Care Provider Buddy Marlow NP Primary Care Provider Unavail able Reason for Referral * EXTERNAL (Routine) - Authorized/Booked Specialty Diagnoses / Procedures Referred By Kailey dominguez Referred To Contact PAIN MANAGEMENT / Pain Management Procedures REFERRAL TO PAIN MANAGEMENT Jo Ann Clinton PA-C [address] [place] [address] Maddy Iraheta NP [address] [place] [address] Referral ID Status Reason Start Date Expiration Date V isits Requested Visits Authorized SEE NOTE Authorized/B ooked 04/20/2019 07/24/2019 1 1 Reason for Visit * Reason Onset Date Comments Cosmetic Dentist Feedback 04/20/2019 pain management referral Encounter Details Date Type Department Care Team Description 04/20/2019 Telephone Adult Medicine [facility] [address] [place] [address] Celina Mann DO Cosmetic Dentist Feedback (pain management referral ) Social History Tobacco Use Types Packs/Day Years [...] encounter Miscellaneous Notes * Telephone Encounter - Jason Mendoza M.A. - 04/21/2019 9:21 AM EST Spoke with patient shw is aware. * Telephone Encounter - Jo Ann Clinton PA-C - 04/20/2019 5:23 PM EST A new referral to interventional pain management only has been placed. Please let patient know thather insurance is not accepeted at the only local office that does medication management of chronic pain * Telephone Encounter - Lindsey Turner - 04/20/2019 3:54 PM EST Hi, You had placed an order for the patient to see pain management for both medical and interventional.Unfortunately the only doctor in our area that does both does not accept her insurance. Please place a new order for only interventional pain management, and also have clinical staff reach out and explain that the pain management docs will not prescribe meds but they will do interventional pain management only. Thank you documented in this encounter Plan of Treatment Not on file documented as of this encounter Visit Diagnoses Not on filedocumented in this encounter Care Teams Trade Embalmer Relationship Specialty Start Date End Date Celina Mann DO PCP - General Internal Medicine 03/21/16 11/23/20 Mercedes Han MD [address] [place] [address] PCP - General Internal Medicine 11/24/20 01/11/21 Callum Hernandez DO [address] [place] [address] PCP - General Internal Medicine 01/12/21 03/19/21 Lopez Brennan MD [address] [place] [address] PCP - General Internal Medicine 03/20/21 10/19/21 Buddy Shaw NP [address] [place] [address] PCP - General Family Practice 10/20/21 01/04/22 [facility], Pcp [address] [place] [address] PCP - General Internal Medicine 01/05/22 11/28/22 Buddy Shaw NP [address] [place] [address] PCP - General Family Practice 11/29/22 documented as of this encounter
--- OUTSIDE RECORDS SUMMARY | 2024-07-29 09:35 | XMS_ITS | Encounter Summary ---
Author Organization [facility] Address [address] [place] [address] Care Team Providers Care Clinical Provider Trainer Name Role Phone Luciano Skinenr MD Primary Care Provider Katherine Blake Bourgeois MD Primary Care Provider Unavail able Celina Mann DO Primary Care Pro vider Unavailable Mercedes Han MD Primary Care Provider [phone] Celina Mann DO Primary Care Pro vider Unavailable Mercedes Han MD Primary Care Provider [phone] Callum Hernandez DO Primary Care Provider Katherine Lopez Aragon MD Primary Care Provider UnaBuddy Castellanos NP Primary Care Provider Unavail able [facility], Pcp Primary Care Provider UnavailBuddy Stephen NP Primary Care Provider Unavail able Encounter Details Date Type Department Care Team Description 06/15/2011 Telephone Adult [address] [address] Luciano Skinner MD Social History Tobacco Use Types Packs/Day Years Used Date Smoking Tobacco: Every Day Cigarettes 0.5 25 Smokeless Tobacco: Never Alcohol Use Standard Drinks/Week Comments No 0 (1 standard drink = 0.6 oz pur e alcohol) rare Sex Assigned at Date Recorded Not on file Job Start Date Occupation Industry Not on file Not on file Not on file documented as of this encounter Miscellaneous Notes * Telephone Encounter - Tete Ma R.N. - 06/15/2011 9:28 AM EST Pt booked appoinment faisalough my chart documented in this encounter Plan of Treatment Not on file documented as of this encounter Visit Diagnoses Not on filedocumented in this encounter Care Teams Clinical Provider Trainer Relationship Specialty Start Date End Date Luciano Skinner MD PCP - General 12/13/10 05/10/14 Blake Rivera MD PCP - General Internal Medicine 05/11/14 03/03/15 Celina Mann DO PCP - General Internal Medicine 03/04/15 02/06/16 Mercedes Han MD [address] [place], [place] [id number] PCP - General Internal Medicine 02/07/16 03/20/16 Celina Mann, PCP - General Internal Medicine 03/21/16 11/23/20 Mercedes Han MD [address] [place] [address] PCP - General Internal Medicine 11/24/20 01/11/21 Callum Hernandez DO [address] [place] [address] PCP - General Internal Medicine 01/12/21 03/19/21 Lopez Brennan MD [address] [place] [address] PCP - General Internal Medicine 03/20/21 10/19/21 Buddy Shaw NP [address] [place] [address] PCP - General Family Practice 10/20/21 01/04/22 [facility], [address] [address] PCP - General Internal Medicine 01/05/22 11/28/22 Buddy Shaw NP [address] [place] [address] PCP - General Family Practice 11/29/22 documented as of this encounter
--- OUTSIDE RECORDS SUMMARY | 2024-07-29 09:35 | XMS_ITS | Encounter Summary ---
Author Organization [facility] Address [address] [place] [address] Care Team Providers Care Manager Epic Name Role Phone Celina Mann DO Primary Care Pro vider Unavailable Mercedes Han MD Primary Care Provider [phone] Callum Hernandez DO Primary Care Provider Lopez uL MD Primary Care Provider Buddy Foy NP Primary Care Provider Unavail able [facility], Pcp Primary Care Provider Buddy Marlow NP Primary Care Provider Unavail able Encounter Details Date Type Department Care Team Description 03/03/2018 Pt. Non Urgent Medical Question Pulmonology - [place] [address] [place] [id number] Eula Norris FNP [address] [place] [address] Social History Tobacco Use Types Packs/Day Years [...] encounter Progress Notes * LESVIA Lujan - 03/03/2018 8:08 PM EDTFrom: Nereida Goddard To: LESVIA Lujan Sent: 03/03/2018 6:11 PM EDT Subject: CPAP equipment Dear Eula I've been trying to reach you last week and a good part of this morning I had a tough time trying to get through I realize you've been trying to get ahold of me also I spoke to the radiology receptionist and she said that there is really nothing available and that I should just keep trying everyday to see if there's a cancellation but in the meantime my headgear is all stretched out and I need new equipment I've reached out to a couple of different places that accept my insurance for equipmentbut they need my sleep apnea test from my pump operator byproducts documented in this encounter Plan of Treatment Not on file documented as of this encounter Visit Diagnoses Not on filedocumented in this encounter Care Teams Manager Epic Relationship Specialty Start Date End Date Celina Mann DO PCP - General Internal Medicine 03/21/16 11/23/20 Mercedes Han MD [address] [place] [address] PCP - General Internal Medicine 11/24/20 01/11/21 Callum Hernandez DO [address] [place] [address] PCP - General Internal Medicine 01/12/21 03/19/21 Lopez Brennan MD [address] [place] [address] PCP - General Internal Medicine 03/20/21 10/19/21 Buddy Shaw NP [address] [place], [place] [phone] PCP - General Family Practice 10/20/21 01/04/22 [facility], [place] [id number] PCP - General Internal Medicine 01/05/22 11/28/22 Buddy Shaw NP [address] [place] [address] PCP - General Family Practice 11/29/22 documented as of this encounter
--- OUTSIDE RECORDS SUMMARY | 2024-07-29 09:35 | XMS_ITS | Encounter Summary ---
Author Organization [facility] Address [address] [place] [address] Care Team Providers Care Unarmed Security Officer Name Role Phone Celina Mann DO Primary Care Pro vider Unavailable Mercedes Han MD Primary Care Provider [phone] Callum Hernandez DO Primary Care Provider Lopez Lu MD Primary Care Provider Buddy Foy NP Primary Care Provider Unavail [facility] Pcp Primary Care Provider Buddy Marlow NP Primary Care Provider Unavail able Encounter Details Date Type Department Care Team Description 04/10/2019 Pt. Non Urgent Medic al Question Adult Medicine [address] [address] Celina Mann DO Social History Tobacco Use [...] encounter Miscellaneous Notes * Telephone Encounter - Kaylyn Caraballo M.A. - 04/13/2019 8:43 AM ESTFrom: Nereida Goddard To: Celina Ulloa DO Sent: 04/10/2019 8:17 PM EST Subject: Message continues The pain of course is worse at night.. I read my visit summary on my chart. and noticed after the list of ailments she also put mode problem To sum up the visit, she started she will send a referral to pain management and MRI.. unfortunately I can't give you anything for the pain, which wou ld make you more drowsy. due to the meds I'm already on. I've been on antidepressant's for 30yr. I have had 4 surgeries. Never having an issue with pain med. I never asked her for pain medication..I left there feeling uncomfortable,.My depression and anxiety are part of me. It is who I am..And I should be treated like everyone else..I have yet maribel contacted about my MRI or pain management..I realize it's only been 5 days..but here I set with ice on my neck, unable to go up or down the stairs or kneel. documented in this encounter Plan of Treatment Not on file documented as of this encounter Visit Diagnoses Not on filedocumented in this encounter Care Teams Unarmed Security Officer Relationship Specialty Start Date End Date Celina Mann DO PCP - General Internal Medicine 03/21/16 11/23/20 Mercedes Han MD [address] [place] [address] PCP - General Internal Medicine 11/24/20 01/11/21 Callum Hernandez DO [address] [place] [address] PCP - General Internal Medicine 01/12/21 03/19/21 Lopez Brennan MD [address] [place] [address] PCP - General Internal Medicine 03/20/21 10/19/21 Buddy Shaw NP [address] [place] [address] PCP - General Family Practice 10/20/21 01/04/22 [facility], Pcp [address] [place], [place] [address] PCP - General Internal Medicine 01/05/22 11/28/22 Buddy Shaw NP [address] [place] [address] PCP - General Family Practice 11/29/22 documented as of this encounter
--- OUTSIDE RECORDS SUMMARY | 2024-07-29 09:35 | XMS_ITS | Encounter Summary ---
Author Organization [facility] Address [address] [place] [address] Care Team Providers Care Doctor Of Podiatry Name Role Phone Celina Mann DO Primary Care Pro vider Unavailable Mercedes Han MD Primary Care Provider [phone] Callum Hernandez DO Primary Care Provider Lopez Lu MD Primary Care Provider Buddy Foy NP Primary Care Provider Unavail [facility] Pcp Primary Care Provider Buddy Marlow NP Primary Care Provider Unavail able Encounter Details Date Type Department Care Team Description 11/24/2018 [facility] Medical Records [address] [place] [address] Carina Luo Social History Tobacco Use Types Packs/Day Years [...] on filedocumented in this encounter Care Teams Doctor Of Podiatry Relationship Specialty Start Date End Date eClina Mann DO PCP - General Internal Medicine 03/21/16 11/23/20 Mercedes Han MD [address] [place] [address] PCP - General Internal Medicine 11/24/20 01/11/21 Callum Hernandez DO [address] [place] [address] PCP - General Internal Medicine 01/12/21 03/19/21 Lopez Brennan MD [address] [place] [address] PCP - General Internal Medicine 03/20/21 10/19/21 Buddy Shaw NP [address] [place] [address] PCP - General Family Practice 10/20/21 01/04/22 [facility], Pcp [address] [place] [address] PCP - General Internal Medicine 01/05/22 11/28/22 Buddy Shaw NP [address] [place], [place] [id number] PCP - General Family Practice 11/29/22 documented as of this encounter
--- OUTSIDE RECORDS SUMMARY | 2024-07-29 09:35 | XMS_ITS | Encounter Summary ---
Author Organization [facility] Address [address] [place] [address] Care Team Providers Care Coal Bagger Name Role Phone Luciano Skinner MD Primary Care Provider Katherine Blake Bourgeois MD Primary Care Provider Unavail able Celina Mann DO Primary Care Pro vider Unavailable Mercedes Han MD Primary Care Provider + [phone] Celina Mann DO Primary Care Pro vider Unavailable Mercedes Han MD Primary Care Provider + [phone] Callum Hernandez DO Primary Care Provider Katherine Lopez Aragon MD Primary Care Provider UnaBuddy Castellanos NP Primary Care Provider Unavail able [facility], Pcp Primary Care Provider UnavailBuddy Stephen NP Primary Care Provider Unavail able Encounter Details Date Type Department Care Team Description 09/07/2013 Electrical Accessories I Assembler Report Medical Records [address] [place] [address] Nilton Kumar Social History Tobacco Use Types Packs/Day Years Used Date Smoking Tobacco: Every Day Cigarettes 25 Smokeless Tobacco: Never Comments:2 cig per day Alcohol Use Standard Drinks/Week Comments No 0 [...] on filedocumented in this encounter Care Teams Coal Bagger Relationship Specialty Start Date End Date Luciano Skinner MD PCP - General 12/13/10 05/10/14 Blake Rivera MD PCP - General Internal Medicine 05/11/14 03/03/15 Celina Mann, DO PCP - General Internal Medicine 03/04/15 02/06/16 Mercedes Han MD [address] [place] [address] 43403 PCP - General Internal Medicine 02/07/16 03/20/16 Celina Mann, PCP - General Internal Medicine 03/21/16 11/23/20 Mercedes Han MD [address] [place] [address] 14025 PCP - General Internal Medicine 11/24/20 01/11/21 Callum Hernandez DO [address] [place] [address] 55774 PCP - General Internal Medicine 01/12/21 03/19/21 Lopez Brennan MD [address] [place] [address] 28413 PCP - General Internal Medicine 03/20/21 10/19/21 Buddy Shaw NP [address] [place] [address] 26965 PCP - General Family Practice 10/20/21 01/04/22 [facility], Pcp [address] [place] [address] 88396 PCP - General Internal Medicine 01/05/22 11/28/22 Buddy Shaw NP [address] [place] [address] 92610 PCP - General Family Practice 11/29/22 documented as of this encounter
--- OUTSIDE RECORDS SUMMARY | 2024-07-29 09:35 | XMS_ITS | Encounter Summary ---
Author Organization [facility] Address [address] [place] [address] Care Team Providers Care Urologic Nurse Name Role Phone Celina Mann DO Primary Care Pro vider Unavailable Mercedes Han MD Primary Care Provider [phone] Callum Hernandez DO Primary Care Provider Lopez Lu MD Primary Care Provider Buddy Foy NP Primary Care Provider Unavail [facility] Pcp Primary Care Provider Buddy Marlow NP Primary Care Provider Unavail [facility] Encounter Details Date Type Department Care Team Description 08/27/2019 Inspector Bullet Slugs Report Medical Records [address] [place] [address] Abstract, Provider Social History Tobacco Use Types Packs/Day Years [...] on filedocumented in this encounter Care Teams Urologic Nurse Relationship Specialty Start Date End Date Celina Mann DO PCP - General Internal Medicine 03/21/16 11/23/20 Mercedes Han MD [address] [place] [address] [id number] PCP - General Internal Medicine 11/24/20 01/11/21 Callum Hernandez DO [address] [place] [address] 08912 PCP - General Internal Medicine 01/12/21 03/19/21 Lopez Brennan MD [address] [place] [address] 42468 PCP - General Internal Medicine 03/20/21 10/19/21 Buddy Shaw NP [address] [place], [place] [phone] PCP - General Family Practice 10/20/21 01/04/22 [facility], Pcp [address] [place] [address] 93809 PCP - General Internal Medicine 01/05/22 11/28/22 Buddy Shaw NP [address] [place], [place] [phone] PCP - General Family Practice 11/29/22 documented as of this encounter
--- OUTSIDE RECORDS SUMMARY | 2024-07-29 09:36 | XMS_ITS | Encounter Summary ---
Author Organization [facility] Address [address] [place] [address] Care Team Providers Care Internet Retailer Name Role Phone Luciano Skinner MD Primary Care Provider Katherine Blake Bourgeois MD Primary Care Provider Unavail able Celina Mann DO Primary Care Pro vider Unavailable Mercedes Han MD Primary Care Provider + [phone] Celina Mann DO Primary Care Pro vider Unavailable Mercedes Han MD Primary Care Provider + [phone] Callum Hernandez DO Primary Care Provider Katherine Lopez Aragon MD Primary Care Provider UnaBuddy Castellanos NP Primary Care Provider Unavail able [facility], Pcp Primary Care Provider UnavailBuddy Stephen NP Primary Care Provider Unavail able Encounter Details Date Type Department Care Team Description 05/04/2013 Physician Intensivist Report Medical Records [address] [place] [address] Nilton Kumar Social History Tobacco Use Types [...] on filedocumented in this encounter Care Teams Internet Retailer Relationship Specialty Start Date End Date Luciano Skinner MD PCP - General 12/13/10 05/10/14 Blake Rivera MD PCP - General Internal Medicine 05/11/14 03/03/15 Celina Mann, DO PCP - General Internal Medicine 03/04/15 02/06/16 Mercedes Han MD [address] [place] [address] 08621 PCP - General Internal Medicine 02/07/16 03/20/16 Celina Mann, PCP - General Internal Medicine 03/21/16 11/23/20 Mercedes Han MD [address] [place] [address] 23183 PCP - General Internal Medicine 11/24/20 01/11/21 Callmu Hernandez DO [address] [place] [address] 46992 PCP - General Internal Medicine 01/12/21 03/19/21 Lopez Brennan MD [address] [place] [address] 54016 PCP - General Internal Medicine 03/20/21 10/19/21 Buddy Shaw NP [address] [place] [address] 54001 PCP - General Family Practice 10/20/21 01/04/22 [facility], Pcp [address] [place] [address] 34531 PCP - General Internal Medicine 01/05/22 11/28/22 Buddy Shaw NP [address] [place] [address] 39700 PCP - General Family Practice 11/29/22 documented as of this encounter
--- OUTSIDE RECORDS SUMMARY | 2024-07-29 09:36 | XMS_ITS | Encounter Summary ---
Author Organization [facility] Address [address] [place] [address] Care Team Providers Care Solar Electric Installer Name Role Phone Celina Mann DO Primary Care Pro vider Unavailable Mercedes Han MD Primary Care Provider [phone] Callum Hernandez DO Primary Care Provider Lopez Lu MD Primary Care Provider Buddy Foy NP Primary Care Provider Unavail able [facility] Pcp Primary Care Provider Buddy Marlow NP Primary Care Provider Unavail able Encounter Details Date Type Department Care Team Description 09/09/2018 Textile Dyer Report Medical Records [address] [place] [address] Nola Peacock PA-C [address] [place] [id number] Social History Tobacco Use Types Packs/Day Years [...] on filedocumented in this encounter Care Teams Solar Electric Installer Relationship Specialty Start Date End Date Celina Mann DO PCP - General Internal Medicine 03/21/16 11/23/20 Mercedes Han MD [address] [place] [address] PCP - General Internal Medicine 11/24/20 01/11/21 Callum Hernandez DO [address] [place] [address] PCP - General Internal Medicine 01/12/21 03/19/21 Lopez Brennan MD [address] [place], [place] [phone] PCP - General Internal Medicine 03/20/21 10/19/21 Buddy Shaw NP [address] [place] [address] PCP - General Family Practice 10/20/21 01/04/22 [facility], Pcp [address] [place] [address] 00738 PCP - General Internal Medicine 01/05/22 11/28/22 Buddy Shaw NP [address] [place] [address] PCP - General Family Practice 11/29/22 documented as of this encounter
--- OUTSIDE RECORDS SUMMARY | 2024-07-29 09:36 | XMS_ITS | Encounter Summary ---
Author Organization [facility] Address [address] [place] [address] Care Team Providers Care Rn Lpn Cna Name Role Phone Luciano Skinner MD Primary Care Provider Katherine Blake Bourgeois MD Primary Care Provider Unavail able Celina Mann DO Primary Care Pro vider Unavailable Mercedes Han MD Primary Care Provider + [phone] Celina Mann DO Primary Care Pro vider Unavailable Mercedes Han MD Primary Care Provider + [phone] Callum Hernandez DO Primary Care Provider Katherine Lopez Aragon MD Primary Care Provider UnaBuddy Castellanos NP Primary Care Provider Unavail able [facility], Pcp Primary Care Provider UnavailBuddy Stephen NP Primary Care Provider Unavail able Encounter Details Date Type Department Care Team Description 02/17/2013 Hospital Medical Records [address] [place] [address] Nilton Kumar Social History Tobacco Use Types [...] on filedocumented in this encounter Care Teams Rn Lpn Cna Relationship Specialty Start Date End Date Luciano Skinner MD PCP - General 12/13/10 05/10/14 Blake Rivera MD PCP - General Internal Medicine 05/11/14 03/03/15 Celina Mann, PCP - General Internal Medicine 03/04/15 02/06/16 Mercedes Han MD [address] [place] [address] PCP - General Internal Medicine 02/07/16 03/20/16 Celina Mann, PCP - General Internal Medicine 03/21/16 11/23/20 Mercedes Han MD [address] [place] [address] PCP - General Internal Medicine 11/24/20 01/11/21 Callum Hernandez DO [address] [place] [address] PCP - General Internal Medicine 01/12/21 03/19/21 Lopez Brennan MD [address] [place] [address] 91207 PCP - General Internal Medicine 03/20/21 10/19/21 Buddy Shaw NP [address] [place] [address] 37736 PCP - General Family Practice 10/20/21 01/04/22 [facility], [address] [address] PCP - General Internal Medicine 01/05/22 11/28/22 Buddy Shaw NP [address] [place] [address] PCP - General Family Practice 11/29/22 documented as of this encounter
--- OUTSIDE RECORDS SUMMARY | 2024-07-29 09:36 | XMS_ITS | Encounter Summary ---
Author Organization [facility] Address [address] [place] [address] Care Team Providers Care Textile Examiner Name Role Phone Celina Mann DO Primary Care Pro vider Unavailable Mercedes Han MD Primary Care Provider [phone] Callum Hernandez DO Primary Care Provider Lopez Lu MD Primary Care Provider Buddy Foy NP Primary Care Provider Unavail [facility] Pcp Primary Care Provider Buddy Marlow NP Primary Care Provider Unavail [facility] Encounter Details Date Type Department Care Team Description 11/16/2019 Weblogic Developer Report Medical Records [address] [place] [address] [facility] Social History Tobacco Use Types Packs/Day [...] on filedocumented in this encounter Care Teams Textile Examiner Relationship Specialty Start Date End Date Celina Mann DO PCP - General Internal Medicine 03/21/16 11/23/20 Mercedes Han MD [address] [place] [address] PCP - General Internal Medicine 11/24/20 01/11/21 Callum Hernandez DO [address] [place] [address] PCP - General Internal Medicine 01/12/21 03/19/21 Lopez Brennan MD [address] [place] [address] PCP - General Internal Medicine 03/20/21 10/19/21 Buddy Shaw NP [address] [place] [address] 83488 PCP - General Family Practice 10/20/21 01/04/22 [facility], Pcp [address] [place] [address] 21870 PCP - General Internal Medicine 01/05/22 11/28/22 Buddy Shaw NP [address] [place] [address] PCP - General Family Practice 11/29/22 documented as of this encounter
--- OUTSIDE RECORDS SUMMARY | 2024-07-29 09:36 | XMS_ITS ---
Author Organization [facility] Address [address] [place] [address] Care Team Providers Care Ceramics Engineer Name Role Phone Buddy Bolden Primary Care Provider Unav ailable Leandro Harvey Unavailable [phone] REASON FOR VISIT SD cx 1/3 Encounters Encounter Location Date Provider [facility] [address] [place] [address] 06/05/2024 Leandro Harvey Plan Of Treatment No Information Progress Notes * Nereida MCBRIDE ADOB:[birth year] (69 yo F)Acc No.[id number]:06/05/2024 Patient:?Nereida MCBRIDE :1955???Age:69 Y???Sex:Female Address:[address] [place], [address] * true * Date:? Generated for Oleksandri sue/Anais/eTransmitting on:?07/29/2024 09:36 AM EST
--- OUTSIDE RECORDS SUMMARY | 2024-07-29 09:36 | XMS_ITS | Encounter Summary ---
Author Organization [facility] Address [address] [place] [address] Care Team Providers Care Tapper Balance Wheel Screw Hole Name Role Phone Luciano Skinner MD Primary Care Provider Katherine Blake Bourgeois MD Primary Care Provider Unavail able Celina Mann DO Primary Care Pro vider Unavailable Mercedes Han MD Primary Care Provider [phone] Celina Mann DO Primary Care Pro vider Unavailable Mercedes Han MD Primary Care Provider + [phone] Callum Hernandez DO Primary Care Provider Katherine Lopez Aragon MD Primary Care Provider UnaBuddy Castellanos NP Primary Care Provider Unavail able [facility], Pcp Primary Care Provider UnavailBuddy Stephen NP Primary Care Provider Unavail able Encounter Details Date Type Department Care Team Description 01/27/2013 Peanut Picker Report Medical Records [address] [place] [address] Jesús Martinez Social History Tobacco Use Types Packs/Day Years [...] on filedocumented in this encounter Care Teams Tapper Balance Wheel Screw Hole Relationship Specialty Start Date End Date Luciano Skinner MD PCP - General 12/13/10 05/10/14 Blake Rivera MD PCP - General Internal Medicine 05/11/14 03/03/15 Celina Mann, DO PCP - General Internal Medicine 03/04/15 02/06/16 Mercedes Han MD [address] [place] [address] 90965 PCP - General Internal Medicine 02/07/16 03/20/16 Ceilna Mann, PCP - General Internal Medicine 03/21/16 11/23/20 Mercedes Han MD [address] [place] [address] 23354 PCP - General Internal Medicine 11/24/20 01/11/21 Callum Hernandez DO [address] [place] [address] 86656 PCP - General Internal Medicine 01/12/21 03/19/21 Lopez Brennan MD [address] [place] [address] 29477 PCP - General Internal Medicine 03/20/21 10/19/21 Buddy Shaw NP [address] [place] [address] 87313 PCP - General Family Practice 10/20/21 01/04/22 [facility], Pcp [address] [place] [address] 34043 PCP - General Internal Medicine 01/05/22 11/28/22 Buddy Shaw NP [address] [place] [address] 17055 PCP - General Family Practice 11/29/22 documented as of this encounter
--- OUTSIDE RECORDS SUMMARY | 2024-07-29 09:36 | XMS_ITS | Encounter Summary ---
Author Organization [facility] Address [address] [place] [address] Care Team Providers Care Marketing Services Specialist Name Role Phone Celina Mann DO Primary Care Pro vider Unavailable Mercedes Han MD Primary Care Provider [phone] Celina Mann DO Primary Care Pro vider Unavailable Mercedes Han MD Primary Care Provider [phone] Callum Hernandez DO Primary Care Provider Lopez Lu MD Primary Care Provider Buddy Foy NP Primary Care Provider Unavail [facility] Primary Care Provider Buddy Marlow NP Primary Care Provider Unavail [facility] Encounter Details Date Type Department Care Team Description 08/09/2015 MAT PUNCHER/MassPat Report Medical Records [address] [place] [address] Abstract, Provider Social History Tobacco Use Types Packs/Day Years Used Date Smoking Tobacco: Light Smoker Cigarettes 25 Smokeless Tobacco: Never Comments:3 cig per day Alcohol Use Standard Drinks/Week [...] on filedocumented in this encounter Care Teams Marketing Services Specialist Relationship Specialty Start Date End Date Celina Mann DO PCP - General Internal Medicine 03/04/15 02/06/16 Mercedes Han MD [address] [place] [address]31 PCP - General Internal Medicine 02/07/16 03/20/16 Celina Mann DO PCP - General Internal Medicine 03/21/16 11/23/20 Mercedes Han MD [address] [place] [address] 86065 PCP - General Internal Medicine 11/24/20 01/11/21 Callum Hernandez DO [address] [place] [address] 49590 PCP - General Internal Medicine 01/12/21 03/19/21 Lopez Brennan MD [address] [place] [address] 89402 PCP - General Internal Medicine 03/20/21 10/19/21 Buddy Shaw NP [address] [place] [address] 64564 PCP - General Family Practice 10/20/21 01/04/22 [facility], Pcp [address] [place] [address] 51205 PCP - General Internal Medicine 01/05/22 11/28/22 Buddy Shaw NP [address] [place] [address] 62314 PCP - General Family Practice 11/29/22 documented as of this encounter
--- OUTSIDE RECORDS SUMMARY | 2024-07-29 09:36 | XMS_ITS | Encounter Summary ---
Author Organization [facility] Address [address] [place] [address] Care Team Providers Care Optical Effects Layout Person Name Role Phone Celina Mann DO Primary Care Pro vider Unavailable Mercedes Han MD Primary Care Provider [phone] Callum Hernandez DO Primary Care Provider Lopez Lu MD Primary Care Provider Buddy Foy NP Primary Care Provider [facility] Pcp Primary Care Provider Buddy Marlow NP Primary Care Provider Unavail [facility] Encounter Details Date Type Department Care Team Description 01/21/2020 Furrier Apprentice Report Medical Records [address] [place] [address]5 Raul German Social History Tobacco Use Types Packs/Day Years [...] on filedocumented in this encounter Care Teams Optical Effects Layout Person Relationship Specialty Start Date End Date Celina Mann DO PCP - General Internal Medicine 03/21/16 11/23/20 Mercedes Han MD [address] [place] [address] 08925 PCP - General Internal Medicine 11/24/20 01/11/21 Callum Hernandez DO [address] [place] [address] PCP - General Internal Medicine 01/12/21 03/19/21 Lopez Brennan MD [address] [place] [address] 66006 PCP - General Internal Medicine 03/20/21 10/19/21 Buddy Shaw NP [address] [place] [address] 35525 PCP - General Family Practice 10/20/21 01/04/22 [facility], Pcp [address] [place] [address] 31206 PCP - General Internal Medicine 01/05/22 11/28/22 Buddy Shaw NP [address] [place] [address] PCP - General Family Practice 11/29/22 documented as of this encounter
--- OUTSIDE RECORDS SUMMARY | 2024-07-29 09:36 | XMS_ITS | Encounter Summary ---
Author Organization [facility] Address [address] [place] [address] Care Team Providers Care Oxidation Engineer Name Role Phone Luciano Skinner MD Primary Care Provider Katherine Blake Bourgeois MD Primary Care Provider Unavail able Celina Mann DO Primary Care Pro vider Unavailable Mercedes Han MD Primary Care Provider + [phone] Celina Mann DO Primary Care Pro vider Unavailable Mercedes Han MD Primary Care Provider + [phone] Callum Hernandez DO Primary Care Provider Katherine Lopez Aragon MD Primary Care Provider UnaBuddy Castellanos NP Primary Care Provider Unavail able [facility], Pcp Primary Care Provider UnavailBuddy Stephen NP Primary Care Provider Unavail able Encounter Details Date Type Department Care Team Description 02/24/2013 Liquified Natural Gas Technician Report Medical Records [address] [place] [address] Jesús Martinez Social History Tobacco Use Types [...] on filedocumented in this encounter Care Teams Oxidation Engineer Relationship Specialty Start Date End Date Luciano Skinner MD PCP - General 12/13/10 05/10/14 Blake Rivera MD PCP - General Internal Medicine 05/11/14 03/03/15 Celina Mann, DO PCP - General Internal Medicine 03/04/15 02/06/16 Mercedes Han MD [address] [place] [address]31 PCP - General Internal Medicine 02/07/16 03/20/16 Celina Mann, PCP - General Internal Medicine 03/21/16 11/23/20 Mercedes Han MD [address] [place] [address] 59247 PCP - General Internal Medicine 11/24/20 01/11/21 Callum Hernandez DO [address] [place] [address] 02055 PCP - General Internal Medicine 01/12/21 03/19/21 Lopez Brennan MD [address] [place] [address] 08209 PCP - General Internal Medicine 03/20/21 10/19/21 Buddy Shaw NP [address] [place] [address] 44865 PCP - General Family Practice 10/20/21 01/04/22 [facility], Pcp [address] [place] [address] 02406 PCP - General Internal Medicine 01/05/22 11/28/22 Buddy Shaw NP [address] [place] [address] 47758 PCP - General Family Practice 11/29/22 documented as of this encounter
--- OUTSIDE RECORDS SUMMARY | 2024-07-29 09:36 | XMS_ITS | Encounter Summary ---
Author Organization [employer] [facility] Address [address] [place] [address] Care Team Providers Care Telecine Operator Name Role Phone Celina Mann DO Primary Care Pro vider Unavailable Mercedes Han MD Primary Care Provider [phone] Callum Hernandez DO Primary Care Provider Lopez Lu MD Primary Care Provider Buddy Foy NP Primary Care Provider Unavail able [facility] Pcp Primary Care Provider Buddy Marlow NP Primary Care Provider Unavail able Encounter Details Date Type Department Care Team Description 12/02/2019 Facilities Mechanical Design Engineer Report Medical Records [address] [place] [address] Megan Ramírez MD [address] [place] [address] Social History Tobacco Use Types Packs/Day Years [...] on filedocumented in this encounter Care Teams Telecine Operator Relationship Specialty Start Date End Date Celina aMnn DO PCP - General Internal Medicine 03/21/16 11/23/20 Mercedes Han MD [address] [place], [place] [phone] PCP - General Internal Medicine 11/24/20 01/11/21 Callum Hernandez DO [address] [place], [place] [phone] PCP - General Internal Medicine 01/12/21 03/19/21 Lopez Brennan MD [address] [place], [place] [phone] PCP - General Internal Medicine 03/20/21 10/19/21 Buddy Shaw NP [address] [place], [place] [phone] PCP - General Family Practice 10/20/21 01/04/22 [facility] [place] [address] PCP - General Internal Medicine 01/05/22 11/28/22 Buddy Shaw NP [address] [place] [address] 21356 PCP - General Family Practice 11/29/22 documented as of this encounter
--- OUTSIDE RECORDS SUMMARY | 2024-07-29 09:36 | XMS_ITS | Encounter Summary ---
Author Organization [facility] Address [address] [place] [address] Care Team Providers Care Negotiations Director Name Role Phone Celina Mann DO Primary Care Pro vider Unavailable Mercedes Han MD Primary Care Provider [phone] Callum Hernandez DO Primary Care Provider Lopez Lu MD Primary Care Provider Buddy Foy NP Primary Care Provider Unavail [facility] Pcp Primary Care Provider Buddy Marlow NP Primary Care Provider Unavail [facility] Encounter Details Date Type Department Care Team Description 11/16/2019 Separating Machine Operator Report Medical Records [address] [place] [address] Abstract, Provider Social History Tobacco Use Types [...] on filedocumented in this encounter Care Teams Negotiations Director Relationship Specialty Start Date End Date Celina Mann DO PCP - General Internal Medicine 03/21/16 11/23/20 Mercedes Han MD [address] [place] [address] [phone] PCP - General Internal Medicine 11/24/20 01/11/21 Callum Hernandez DO [address] [place] [address] 51218 PCP - General Internal Medicine 01/12/21 03/19/21 Lopez Brennan MD [address] [place] [address] 42552 PCP - General Internal Medicine 03/20/21 10/19/21 Buddy Shaw NP [address] [place], [place] [phone] PCP - General Family Practice 10/20/21 01/04/22 [facility], Pcp [address] [place] [address] 05065 PCP - General Internal Medicine 01/05/22 11/28/22 Buddy Shaw NP [address] [place], [place] [phone] PCP - General Family Practice 11/29/22 documented as of this encounter
--- OUTSIDE RECORDS SUMMARY | 2024-07-29 09:36 | XMS_ITS | Encounter Summary ---
Author Organization [employer] [facility] Address [address] [place] [address] Care Team Providers Care Language Tutor Name Role Phone Celian Mann DO Primary Care Pro vider Unavailable Mercedes Han MD Primary Care Provider [phone] Callum Hernandez DO Primary Care Provider Lopez Lu MD Primary Care Provider Buddy Foy NP Primary Care Provider [facility] Pcp Primary Care Provider Buddy Marlow NP Primary Care Provider Unavail [facility] Encounter Details Date Type Department Care Team Description 03/02/2020 Shell Shop Supervisor Report Medical Records [address] [place] [address] Raul German Social History Tobacco Use Types [...] on filedocumented in this encounter Care Teams Language Tutor Relationship Specialty Start Date End Date Celina Mann DO PCP - General Internal Medicine 03/21/16 11/23/20 Mercedes Han MD [address] [place] [address] PCP - General Internal Medicine 11/24/20 01/11/21 Callum Hernandez DO [address] [place] [address] PCP - General Internal Medicine 01/12/21 03/19/21 Lopez Brennan MD [address] [place] [address] PCP - General Internal Medicine 03/20/21 10/19/21 Buddy Shaw NP [address] [place] [address] PCP - General Family Practice 10/20/21 01/04/22 [facility], Pcp [address] [place] [address] PCP - General Internal Medicine 01/05/22 11/28/22 Buddy Shaw NP [address] [place] [address] PCP - General Family Practice 11/29/22 documented as of this encounter
--- OUTSIDE RECORDS SUMMARY | 2024-07-29 09:36 | XMS_ITS | Encounter Summary ---
Author Organization [employer] [facility] Address [address] [place] [address] Care Team Providers Care Rip And Groove Machine Operator Name Role Phone Celina Mann DO Primary Care Pro vider Unavailable Mercedes Han MD Primary Care Provider [phone] Callum Hernandez DO Primary Care Provider Lopez Lu MD Primary Care Provider Buddy Foy NP Primary Care Provider [facility] Pcp Primary Care Provider Buddy Marlow NP Primary Care Provider Unavail [facility] Encounter Details Date Type Department Care Team Description 04/07/2020 Juvenile Counselor Report Medical Records [address] [place] [address] Raul German Social History Tobacco Use Types [...] on filedocumented in this encounter Care Teams Rip And Groove Machine Operator Relationship Specialty Start Date End Date Celina Mann DO PCP - General Internal Medicine 03/21/16 11/23/20 Mercedes Han MD [address] [place] [address] PCP - General Internal Medicine 11/24/20 01/11/21 Callum Hernandez DO [address] [place] [address] PCP - General Internal Medicine 01/12/21 03/19/21 Lopez Brennan MD [address] [place] [address] PCP - General Internal Medicine 03/20/21 10/19/21 Buddy Shaw NP [address] [place] [address] PCP - General Family Practice 10/20/21 01/04/22 [facility], Pcp [address] [place] [address] PCP - General Internal Medicine 01/05/22 11/28/22 Buddy Shaw NP [address] [place] [address] PCP - General Family Practice 11/29/22 documented as of this encounter
--- OUTSIDE RECORDS SUMMARY | 2024-07-29 09:36 | XMS_ITS | Encounter Summary ---
Author Organization [employer] [facility] Address [address] [place] [address] Care Team Providers Care Waste Disposal Attendant Name Role Phone Celina Mann DO Primary Care Pro vider Unavailable Mercedes Han MD Primary Care Provider [phone] Callum Hernandez DO Primary Care Provider Lopez Lu MD Primary Care Provider Buddy Foy NP Primary Care Provider Unavail able [facility] Pcp Primary Care Provider Buddy Marlow NP Primary Care Provider Unavail able Encounter Details Date Type Department Care Team Description 10/30/2019 Actionscript Developer Report Medical Records [address] [place] [address] Megan Ramírez MD [address] [place] [address] Social History Tobacco Use Types Packs/Day Years [...] on filedocumented in this encounter Care Teams Waste Disposal Attendant Relationship Specialty Start Date End Date Celina Mann DO PCP - General Internal Medicine 03/21/16 11/23/20 Mercedes Han MD [address] [place], [place] [phone] PCP - General Internal Medicine 11/24/20 01/11/21 Callum Hernandez DO [address] [place], [place] [address] PCP - General Internal Medicine 01/12/21 03/19/21 Lopez Brennan MD [address] [place], [place] [address] PCP - General Internal Medicine 03/20/21 10/19/21 Buddy Shaw NP [address] [place], [place] [address] PCP - General Family Practice 10/20/21 01/04/22 [facility], [place] [address] PCP - General Internal Medicine 01/05/22 11/28/22 Buddy Shaw NP [address] [place] [address] PCP - General Family Practice 11/29/22 documented as of this encounter
--- OUTSIDE RECORDS SUMMARY | 2024-07-29 09:36 | XMS_ITS | Encounter Summary ---
Author Organization [employer] [facility] Address [address] [place] [address] Care Team Providers Care Stove Tender Name Role Phone Celina Mann DO Primary Care Pro vider Unavailable Mercedes Han MD Primary Care Provider [phone] Callum Hernandez DO Primary Care Provider Lopez Lu MD Primary Care Provider Buddy Foy NP Primary Care Provider Unavail [facility] Pcp Primary Care Provider Buddy Marlow NP Primary Care Provider Unavail [facility] Encounter Details Date Type Department Care Team Description 10/29/2019 Food Service Report Medical Records [address] [place] [address] [facility] Social History Tobacco Use Types Packs/Day Years [...] on filedocumented in this encounter Care Teams Stove Tender Relationship Specialty Start Date End Date Celina Mann DO PCP - General Internal Medicine 03/21/16 11/23/20 Mercedes Han MD [address] [place] [address] PCP - General Internal Medicine 11/24/20 01/11/21 Callum Hernandez DO [address] [place] [address] PCP - General Internal Medicine 01/12/21 03/19/21 Lopez Brennan MD [address] [place] [address] PCP - General Internal Medicine 03/20/21 10/19/21 Buddy Shaw NP [address] [place] [address] PCP - General Family Practice 10/20/21 01/04/22 [facility] Pcp [address] [place] [address] PCP - General Internal Medicine 01/05/22 11/28/22 Buddy Shaw NP [address] [place] [address] PCP - General Family Practice 11/29/22 documented as of this encounter
--- OUTSIDE RECORDS SUMMARY | 2024-07-29 09:36 | XMS_ITS | Encounter Summary ---
Author Organization [facility] Address [address] [place] [address] Care Team Providers Care Wildlife Conservation Officer Name Role Phone Celina Mann DO Primary Care Pro vider Unavailable Mercedes Han MD Primary Care Provider [phone] Callum Hernandez DO Primary Care Provider Lopez Lu MD Primary Care Provider Buddy Foy NP Primary Care Provider Unavail able [facility], Pcp Primary Care Provider UnavailBuddy Stephen NP Primary Care Provider Unavail able Reason for Visit * Reason Onset Date Comments Sweating, Excessive 01/19/2018 Encounter Details Date Type Department Care Team Description 01/19/2018 Pt. Non Urgent Medic al Question Adult Medicine [address] [address] Celina Mann DO Social History Tobacco Use Types Packs/Day Years Used Date Smoking Tobacco: Heavy Smoker Cigarettes 25 25 Started: 1972 Smokeless Tobacco: Never Comments:4 cigarettes daily Alcohol Use Standard Drinks/Week Comments Yes 0 (1 standard drink = 0.6 oz pur e alcohol) 3 drinks per yr Sex Assigned at Date Recorded Not on file Job Start Date Occupation Industry Not on file Not on file Not on file documented as of this encounter Progress Notes * Kaylyn Caraballo M.A. - 01/20/2018 7:43 AM EDTFrom: Nereida Goddard To: Celina Ulloa DO Sent: 01/19/2018 12:06 PM EDT Subject: Excessive sweating Tonja Ho I've been having a couple issues that I'm concerned about I've been sweating profuselyfor quite (perhaps 3 weeks) while now and feeling a little sluggish and light headed and a little jittery like inside my body I don't know if this requires a check-up or visit or some blood work but I am concerned I'm also a little bit more irritable in tired documented in this encounter Plan of Treatment Not on file documented as of this encounter Visit Diagnoses Not on filedocumented in this encounter Care Teams Wildlife Conservation Officer Relationship Specialty Start Date End Date Celina Mann DO PCP - General Internal Medicine 03/21/16 11/23/20 Mercedes Han MD [address] [place] [address] PCP - General Internal Medicine 11/24/20 01/11/21 Callum Hernandez DO [address] [place] [address] PCP - General Internal Medicine 01/12/21 03/19/21 Lopez Brennan MD [address] [place] [address] PCP - General Internal Medicine 03/20/21 10/19/21 Buddy Shaw NP [address] [place] [address] PCP - General Family Practice 10/20/21 01/04/22 [facility], Pcp [address] [place] [address] PCP - General Internal Medicine 01/05/22 11/28/22 Buddy Shaw NP [address] [place] [address] PCP - General Family Practice 11/29/22 documented as of this encounter
--- OUTSIDE RECORDS SUMMARY | 2024-07-29 09:36 | XMS_ITS | Encounter Summary ---
Author Organization [facility] Address [address] [place] [address] Care Team Providers Care Data Coder Operator Name Role Phone Luciano Skinner MD Primary Care Provider Katherine Blake Bourgeois MD Primary Care Provider Unavail able Celina Mann DO Primary Care Pro vider Unavailable Mercedes Han MD Primary Care Provider [phone] Celina Mann DO Primary Care Pro vider Unavailable Mercedes Han MD Primary Care Provider [phone] Callum Hernandez DO Primary Care Provider Katherine Lopez Aragon MD Primary Care Provider UnaBuddy Castellanos NP Primary Care Provider Unavail able [facility], Pcp Primary Care Provider UnavailBuddy Stephen NP Primary Care Provider Unavail able Encounter Details Date Type Department Care Team Description 04/10/2013 Account Executive Healthcare Report Medical Records [address] [place] [address] Eric Ladd MD Social History Tobacco Use Types Packs/Day [...] on filedocumented in this encounter Care Teams Data Coder Operator Relationship Specialty Start Date End Date Luciano Skinner MD PCP - General 12/13/10 05/10/14 Blake Rivera MD PCP - General Internal Medicine 05/11/14 03/03/15 Celina Mann, DO PCP - General Internal Medicine 03/04/15 02/06/16 Mercedes Han MD [address] [place] [address] PCP - General Internal Medicine 02/07/16 03/20/16 Celina Mann, PCP - General Internal Medicine 03/21/16 11/23/20 Mercedes Han MD [address] [place] [address] PCP - General Internal Medicine 11/24/20 01/11/21 Callum Hernandez, [address] [place] [address] PCP - General Internal Medicine 01/12/21 03/19/21 Lopez Brennan MD [address] [place] [address] PCP - General Internal Medicine 03/20/21 10/19/21 Buddy Shaw NP [address] [place] [address] PCP - General Family Practice 10/20/21 01/04/22 [facility], Pcp [address] [place] [address] PCP - General Internal Medicine 01/05/22 11/28/22 Buddy Shaw NP [address] [place] [address] PCP - General Family Practice 11/29/22 documented as of this encounter
--- OUTSIDE RECORDS SUMMARY | 2024-07-29 09:36 | XMS_ITS | Encounter Summary ---
Author Organization [facility] Address [address] [place] [address] Care Team Providers Care Pond Worker Name Role Phone Celina Mann DO Primary Care Pro vider Unavailable Mercedes Han MD Primary Care Provider [phone] Callum Hernandez DO Primary Care Provider Lopez Lu MD Primary Care Provider Buddy Foy NP Primary Care Provider Unavail able [facility], Pcp Primary Care Provider Buddy Marlow NP Primary Care Provider Unavail able Reason for Visit * Reason Onset Date Comments TEST RESULTS 10/16/2019 Encounter Details Date Type Department Care Team Description 10/16/2019 Pt. Non Urgent Medic al Question Adult Medicine [address] [address] Celina Mann DO Social History Tobacco Use [...] Telephone Encounter - Kaylyn Caraballo M.A. - 10/19/2019 9:09 AM EDTFrom: Nereida Goddard To: Celina Ulloa DO Sent: 10/16/2019 5:41 PM EDT Subject: Blood test Tonja, I was just wondering when my bloodwork results will be posted on my cart Have a good day, and stay safe documented in this encounter Plan of Treatment Not on file documented as of this encounter Visit Diagnoses Not on filedocumented in this encounter Care Teams Pond Worker Relationship Specialty Start Date End Date Celina Mann DO PCP - General Internal Medicine 03/21/16 11/23/20 Mercedes Han MD [address] [place] [address] PCP - General Internal Medicine 11/24/20 01/11/21 Callum Hernandez DO [address] [place] [address] PCP - General Internal Medicine 01/12/21 03/19/21 Lopez Brennan MD [address] [place] [address] PCP - General Internal Medicine 03/20/21 10/19/21 Buddy Shaw NP [address] [place] [address] PCP - General Family Practice 10/20/21 01/04/[address] [address] PCP - General Internal Medicine 01/05/22 11/28/22 Buddy Shaw NP [address] [place] [address] PCP - General Family Practice 11/29/22 documented as of this encounter
--- OUTSIDE RECORDS SUMMARY | 2024-07-29 09:36 | XMS_ITS | Encounter Summary ---
Author Organization [facility] Address [address] [place] [address] Care Team Providers Care Heating Unit Mechanic Name Role Phone [facility], Pcp Primary Care Provider Buddy Marlow NP Primary Care Provider Unavail able Encounter Details Date Type Department Care Team Description 11/05/2022 Orders Only [facility] Lung Screening Program [place] [address] [facility] [address] [place] [address] Simón Hamlin MD [address] [facility] [address] [place] [address] Pulmonary nodule/lesion, solitary (Primary Dx); Encounter for screening for lung cancer; History of tobacco use, presenting hazards to health Social History Tobacco Use Types Packs/Day Years [...] documented as of this encounter Visit Diagnoses Diagnosis Pulmonary nodule/lesion, solitary- Primary Solitary pulmonary nodule Encounter for screening for lung cancer History of tobacco use, presenting hazards to health Personal history of tobacco use, presenting hazards to health documented in this encounter Care Teams Heating Unit Mechanic Relationship Specialty Start Date End Date [facility], Pcp PCP - General Internal Medicine 01/05/22 11/28/22 Glogowski, Buddy, SUPERVISOR PAINTING SHIPYARD PCP - General Family Practice 11/29/22 documented as of this encounter
--- OUTSIDE RECORDS SUMMARY | 2024-07-29 09:37 | XMS_ITS | Encounter Summary ---
Author Organization [facility] Address [address] [place] [address] Care Team Providers Care Composition Stone Applicator Name Role Phone Buddy Shaw BILLPOSTING SUPERVISOR Primary Care Provider Unavail able [facility], Pcp Primary Care Provider Unavailabl Buddy Irving BILLPOSTING SUPERVISOR Primary Care Provider Unavail able Encounter Details Date Type Department Care Team Description 11/27/2021 Orders Only [facility] Thoracic Surgery [place] [address] [facility] [address] [place] [phone] Simón Hamlin MD [address] [facility] [address] [place], [place] [id number] History of tobacco use, presenting hazards to [...] file Not on file Not on file COVID-19 Exposure Response Date Recorded In the last 10 days, have yo u been in contact with someone who was confirmed or suspected to have Coronavirus/COVID-19? No / Unsure 11/28/2021 3:43 PM EDT documented as of this encounter Plan of Treatment Not on file documented as of this encounter Procedures Procedure Name Priority Date/Time Associated Diagnosis Comments CT LOW DOSE LUNG SCREEN ANNUAL Routine 11/27/2021 History of tobacco use, presenting hazards to health documented in this encounter Results * CT LOW DOSE LUNG SCREEN ANNUAL (11/27/2021) Simón Hamlin MD CT SCANS documented in this encounter Visit Diagnoses Diagnosis History of tobacco use, presenting hazards to health Personal history of tobacco use, presenting hazards to health documented in this encounter Care Teams Composition Stone Applicator Relationship Specialty Start Date End Date Buddy Shaw NP PCP - General Family Practice 10/20/21 01/04/22 [facility], Pcp PCP - General Internal Medicine 01/05/22 11/28/22 Buddy Shaw NP PCP - General Family Practice 11/29/22 documented as of this encounter
--- OUTSIDE RECORDS SUMMARY | 2024-07-29 09:37 | XMS_ITS ---
Author Organization [facility] Address [address] [place] [address] Care Team Providers Care Surgery Center Administrator Name Role Phone Buddy Bolden Primary Care Provider Unav ailable Leandro Harvey Unavailable [phone] Allergies Allergen (clinical drug ingredient) Drug/Non Drug [...] Active Encounters Encounter Location Date Provider Diagnosis [facility] [address] [place] [address] 06/05/2024 Leandro Harvey Plan Of Treatment No Information Progress Notes * Nereida MCBRIDE ADOB:[birth year] (69 yo F)Acc No.[id number]:06/05/2024 Progress Note Patient:?Nereida MCBRIDE Provider:?Leandro Harvey DPM :1955???Age:69 Y???Sex:Female D ate:06/05/2024 Address:[address] [place], [place] [id number] Pcp:DEB Mcclure Subjective: * Chief Complaints: * [...] Harvey DPM Date:?2024 Generated for Gale rogers/Anais/Cassie on:?07/29/2024 09:36 AM EST
--- OUTSIDE RECORDS SUMMARY | 2024-07-29 09:37 | XMS_ITS | Encounter Summary ---
Author Organization [facility] Address [address] [place] [address] Care Team Providers Care Iv Technician Name Role Phone Lopez Brennan MD Primary Care Provider Buddy Foy NP Primary Care Provider Unavail able [facility], Pcp Primary Care Provider Buddy Marlow NP Primary Care Provider Unavail able Reason for Visit * Reason Onset Date Comments APPOINTMENT 10/09/2021 Encounter Details Date Type Department Care Team Description 10/09/2021 Telephone Pulmonology - [place] [address] [facility] [address] [place] [address] Leonarda Norris [facility] [address] [place] [address] APPOINTMENT Social History Tobacco Use Types Packs/Day Years [...] suspected to have Coronavirus/COVID-19? No / Unsure 10/07/2021 11:50 AM EDT documented as of this encounter Miscellaneous Notes * Telephone Encounter - Shelley Dewey - 10/09/2021 1:17 PM EDT Left vm for pt to call office to book audio with leonarda documented in this encounter Plan of Treatment Not on file documented as of this encounter Visit Diagnoses Not on filedocumented in this encounter Care Teams Iv Technician Relationship Specialty Start Date End Date Keily Brennan-MD Kranthi PCP - General Internal Medicine 03/20/21 10/19/21 Buddy Shaw NP PCP - General Family Practice 10/20/21 01/04/22 [facility], Pcp PCP - General Internal Medicine 01/05/22 11/28/22 Buddy Shaw NP PCP - General Family Practice 11/29/22 documented as of this encounter
--- OUTSIDE RECORDS SUMMARY | 2024-07-29 09:37 | XMS_ITS | Encounter Summary ---
Author Organization [facility] Address [address] [place] [address] Care Team Providers Care District Fire Chief Name Role Phone Luciano Skinner MD Primary Care Provider Katherine Blake Bourgeois MD Primary Care Provider Unavail able Celina Mann DO Primary Care Pro vider Unavailable Mercedes Han MD Primary Care Provider [phone] Celina Mann DO Primary Care Pro vider Unavailable Mercedes Han MD Primary Care Provider [phone] Callum Hernandez DO Primary Care Provider Katherine Lopez Aragon MD Primary Care Provider UnaBuddy Castellanos NP Primary Care Provider Unavail able [facility], Pcp Primary Care Provider UnavailBuddy Stephen NP Primary Care Provider Unavail able Encounter Details Date Type Department Care Team Description 04/18/2011 Physician/Ophthalmologist Report Medical Records [address] [place] [address] Chi Pierre Social History Tobacco Use Types Packs/Day Years Used Date Smoking Tobacco: Every Day Cigarettes 1 25 Smokeless Tobacco: Never Alcohol Use Standard [...] on filedocumented in this encounter Care Teams District Fire Chief Relationship Specialty Start Date End Date Luciano Skinner MD PCP - General 12/13/10 05/10/14 Blake Rivera MD PCP - General Internal Medicine 05/11/14 03/03/15 Celina Mann, PCP - General Internal Medicine 03/04/15 02/06/16 Mercedes Han MD [address] [place] [address] PCP - General Internal Medicine 02/07/16 03/20/16 Celina Mann, PCP - General Internal Medicine 03/21/16 11/23/20 Mercedes Han MD [address] [place] [address] PCP - General Internal Medicine 11/24/20 01/11/21 Callum Hernandez DO [address] [place] [address] PCP - General Internal Medicine 01/12/21 03/19/21 Lopez Brennan MD [address] [place] [address] PCP - General Internal Medicine 03/20/21 10/19/21 Buddy Shaw NP [address] [place] [address] PCP - General Family Practice 10/20/21 01/04/22 [facility], Pcp [address] [place] [address] PCP - General Internal Medicine 01/05/22 11/28/22 Buddy Shaw NP [address] [place] [address] PCP - General Family Practice 11/29/22 documented as of this encounter
--- OUTSIDE RECORDS SUMMARY | 2024-07-29 09:37 | XMS_ITS | Patient Health Record ---
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
--- OUTSIDE RECORDS SUMMARY | 2024-07-29 09:37 | XMS_ITS | Encounter Summary ---
Author Organization [facility] Address [address] [place] [address] Care Team Providers Care Activities Specialist Name Role Phone Luciano Skinner MD Primary Care Provider Katherine Javed Lindsay MD Primary Care Provider UnaBlake Traore MD Primary Care Provider Unavail able Celina Mann DO Primary Care Pro vider Unavailable Mercedes Han MD Primary Care Provider + [phone] Celina Mann DO Primary Care Pro vider Unavailable Mercedes Han MD Primary Care Provider + [phone] Callum Hernandez DO Primary Care Provider Katherine Lopez Aragon MD Primary Care Provider Buddy Foy NP Primary Care Provider Unavail able [facility], [facility] Primary Care Provider UnavailBuddy Stephen NP Primary Care Provider Unavail able Encounter Details Date Type Department Care Team Description 06/28/2010 Public Health Sanitarian Technician Report Medical Records [address] [place] [address] Chi Pierre Social History Tobacco Use Types Packs/Day Years Used Date Smoking Tobacco: Every Day Cigarettes 0.5 23 Alcohol Use Standard Drinks/Week Comments Yes 0 [...] on filedocumented in this encounter Care Teams Activities Specialist Relationship Specialty Start Date End Date Brody, Luciano M., MD PCP - General 12/13/10 05/10/14 Javed Kulkarni MD PCP - General 03/15/00 12/12/10 Blake Rivera MD PCP - General Internal Medicine 05/11/14 03/03/15 Celina Mann, PCP - General Internal Medicine 03/04/15 02/06/16 Mercedes Han MD [address] [place] [address] PCP - General Internal Medicine 02/07/16 03/20/16 Celina Mann, DO PCP - General Internal Medicine 03/21/16 11/23/20 Mercedes Han MD [address] [place] [address] PCP - General Internal Medicine 11/24/20 01/11/21 Callum Hernandez DO [address] [place], [place] [phone] PCP - General Internal Medicine 01/12/21 03/19/21 Lopez Brennan MD [address] [place] [address] PCP - General Internal Medicine 03/20/21 10/19/21 Buddy Shaw NP [address] [place] [address] PCP - General Family Practice 10/20/21 01/04/22 [facility], Pcp [address] [place] [address] PCP - General Internal Medicine 01/05/22 11/28/22 Buddy Shaw NP [address] [place] [address] PCP - General Family Practice 11/29/22 documented as of this encounter
--- OUTSIDE RECORDS SUMMARY | 2024-07-29 09:37 | XMS_ITS | Encounter Summary ---
Author Organization [facility] Address [address] [place] [address] Care Team Providers Care Public Safety Director Name Role Phone Lopez Brennan MD Primary Care Provider Buddy Foy NP Primary Care Provider Unavail able [facility], Pcp Primary Care Provider Buddy Marlow NP Primary Care Provider Unavail able Reason for Visit * Reason Onset Date Comments DME Request 06/13/2021 Encounter Details Date Type Department Care Team Description 06/13/2021 Telephone Pulmonology - [place] [address] [facility] [address] [place] [address] Eula Norris [facility] [address] [place] [address] DME Request Social History Tobacco Use Types Packs/Day Years [...] encounter Miscellaneous Notes * Telephone Encounter - Key De Los Santos - 06/13/2021 3:47 PM EST Left a message for patient to call the office so we can schedule her with her yearly follow up in September and then we can get her DME order sent out documented in this encounter Plan of Treatment Not on file documented as of this encounter Visit Diagnoses Not on filedocumented in this encounter Care Teams Public Safety Director Relationship Specialty Start Date End Date Lopez Brennan MD PCP - General Internal Medicine 03/20/21 10/19/21 Buddy Shaw NP PCP - General Family Practice 10/20/21 01/04/22 [facility], Pcp PCP - General Internal Medicine 01/05/22 11/28/22 Buddy Shaw NP PCP - General Family Practice 11/29/22 documented as of this encounter
--- OUTSIDE RECORDS SUMMARY | 2024-07-29 09:37 | XMS_ITS ---
Author Organization [facility] Address [address] [place] [address] Care Team Providers Care Sewer Tapper Name Role Phone Buddy Bolden Primary Care Provider Unav ailable Leandro Harvey Unavailable [phone] Martinez Encounters Encounter Location Date Provider Diagnosis [facility] [address] [place] [address] 03/10/2024 Leandro Harvey Plan Of Treatment No Information Progress Notes * Nereida MCBRIDE ADOB:[birth year] (69 yo F)Acc No.[id number]:03/10/2024 Progress Note Patient:?Nereida MCBRIDE Provider:?Leandro Harvey DPM :1955???Age:69 Y???Sex:Female D ate:03/10/2024 Address:[id number] Pcp:DEB Mcclure Subjective: * [...] Harvey DPM Date:?2023 Generated for Gale rogers/Anais/Cassie on:?07/29/2024 09:37 AM EST
--- OUTSIDE RECORDS SUMMARY | 2024-07-29 09:37 | XMS_ITS | Encounter Summary ---
Author Organization [facility] Address [address] [place] [address] Care Team Providers Care Education Intern Name Role Phone Luciano Skinner MD Primary Care Provider Katherine Javed Lindsay MD Primary Care Provider UnaBlake Traore MD Primary Care Provider Unavail able Celina Mann DO Primary Care Pro vider Unavailable Mercedes Han MD Primary Care Provider [phone] Celina Mann DO Primary Care Pro vider Unavailable Mercedes Han MD Primary Care Provider + [phone] Callum Hernandez DO Primary Care Provider Katherine Lopez Aragon MD Primary Care Provider Buddy Foy NP Primary Care Provider Unavail able [facility], [facility] Primary Care Provider UnavailBuddy Stephen NP Primary Care Provider Unavail able Encounter Details Date Type Department Care Team Description 05/01/2010 Marketing Information Coordinator Report Medical Records [address] [place] [address] Chi Pierre Social History Tobacco Use Types [...] on filedocumented in this encounter Care Teams Education Intern Relationship Specialty Start Date End Date Brody, Luciano M., MD PCP - General 12/13/10 05/10/14 Javed Kulkarni MD PCP - General 03/15/00 12/12/10 Blake Rivera MD PCP - General Internal Medicine 05/11/14 03/03/15 Celina Mann, PCP - General Internal Medicine 03/04/15 02/06/16 Mercedes Han MD [address] [place] [address] PCP - General Internal Medicine 02/07/16 03/20/16 Celina Mann, DO PCP - General Internal Medicine 03/21/16 11/23/20 Mercedes Han MD [address] [place] [address] PCP - General Internal Medicine 11/24/20 01/11/21 Callum Hernandez DO [address] [place], [place] [phone] PCP - General Internal Medicine 01/12/21 03/19/21 Lopez Brennan MD [address] [place] [address] PCP - General Internal Medicine 03/20/21 10/19/21 Buddy Shaw NP [address] [place] [address] PCP - General Family Practice 10/20/21 01/04/22 [facility], Pcp [address] [place] [address] PCP - General Internal Medicine 01/05/22 11/28/22 Buddy Shaw NP [address] [place] [address] PCP - General Family Practice 11/29/22 documented as of this encounter
--- OUTSIDE RECORDS SUMMARY | 2024-07-29 09:37 | XMS_ITS | Encounter Summary ---
Author Organization [facility] Address [address] [place] [address] Care Team Providers Care Combo Welder Name Role Phone Lopez Brennan MD Primary Care Provider Buddy Foy NP Primary Care Provider Unavail able [facility], Pcp Primary Care Provider Buddy Marlow PRINCIPAL ELECTRICAL ENGINEER Primary Care Provider Unavail able Encounter Details Date Type Department Care Team Description 03/30/2021 Produce Manager Report Medical Records [address] [place] [address] Shell Day DPM Social History Tobacco Use Types Packs/Day Years [...] on filedocumented in this encounter Care Teams Combo Welder Relationship Specialty Start Date End Date Lopez Brennan MD PCP - General Internal Medicine 03/20/21 10/19/21 Buddy Shaw NP PCP - General Family Practice 10/20/21 01/04/22 [facility], Pcp PCP - General Internal Medicine 01/05/22 11/28/22 Buddy Shaw NP PCP - General Family Practice 11/29/22 documented as of this encounter
--- OUTSIDE RECORDS SUMMARY | 2024-07-29 09:38 | XMS_ITS | Encounter Summary ---
Author Organization [facility] Address [address] [place] [address] Care Team Providers Care Bottom Filler Name Role Phone Celina Mann DO Primary Care Pro vider Unavailable Mercedes Han MD Primary Care Provider [phone] Callum Hernandez DO Primary Care Provider Lopez Lu MD Primary Care Provider Buddy Foy NP Primary Care Provider Unavail able [facility], Pcp Primary Care Provider Buddy Marlow NP Primary Care Provider Unavail able Encounter Details Date Type Department Care Team Description 08/19/2020 Pt. Non Urgent Medic al Question Adult Medicine [address] [address] Celina Mann DO Social History Tobacco Use [...] Exposure Response Date Recorded In the last month, have you been in contact with someone who was confirmed or suspected to have Coronavirus / COVID-19? No / Unsure 08/12/2020 2:13 PM EST documented as of this encounter Miscellaneous Notes * Telephone Encounter - Celina Ulloa DO - 08/23/2020 12:33 PM EDT Have sent in prescription for atorvastatin * Telephone Encounter - Francheska Bui M.A. - 08/19/2020 2:35 PM EDTFrom: Nereida Nitza To: Celina Ulloa DO Sent: 08/19/2020 2:25 PM EDT Subject: cholesterol medication Yes, Dr. Bell, I am entersted in low dose Cholesterol medication Thank you Arianna Goddard documented in this encounter Plan of Treatment Not on file documented as of this encounter Visit Diagnoses Not on filedocumented in this encounter Care Teams Bottom Filler Relationship Specialty Start Date End Date Celina Mann DO PCP - General Internal Medicine 03/21/16 11/23/20 Mercedes Han MD [address] [place] [address] PCP - General Internal Medicine 11/24/20 01/11/21 Callum Hernandez DO [address] [place] [address] PCP - General Internal Medicine 01/12/21 03/19/21 Lopez Brennan MD [address] [place] [address] PCP - General Internal Medicine 03/20/21 10/19/21 Buddy Shaw NP [address] [place] [address] PCP - General Family Practice 10/20/21 01/04/22 [facility], Pcp [address] [place] [address] PCP - General Internal Medicine 01/05/22 11/28/22 Buddy Shaw NP [address] [place] [address] PCP - General Family Practice 11/29/22 documented as of this encounter
--- OUTSIDE RECORDS SUMMARY | 2024-07-29 09:38 | XMS_ITS | Encounter Summary ---
Author Organization [facility] Address [address] [place] [address] Care Team Providers Care Epidemiology Internship Name Role Phone Mercedes Han MD Primary Care Provider [phone] Celina Mann DO Primary Care Pro vider Unavailable Mercedes Han MD Primary Care Provider [phone] Callum Hernandez DO Primary Care Provider Lopez Lu MD Primary Care Provider Buddy Foy NP Primary Care Provider Unavail [facility] Primary Care Provider Buddy Marlow NP Primary Care Provider Unavail able Encounter Details Date Type Department Care Team Description 03/19/2016 Certified Registered Nurse Anesthetist Report Medical Records [address] [place] [address] Miesha Walker MD Social History Tobacco Use Types Packs/Day Years Used Date Smoking Tobacco: Light Smoker Cigarettes 25 Smokeless Tobacco: Never Comments:2 cigarettes daily Alcohol Use Standard Drinks/Week Comments [...] on filedocumented in this encounter Care Teams Epidemiology Internship Relationship Specialty Start Date End Date Mercedes Han MD [address] [place] [address] PCP - General Internal Medicine 02/07/16 03/20/16 Celina Mann, DO [address] [place] [address] PCP - General Internal Medicine 03/21/16 11/23/20 Mercedes Han MD [address] [place] [address] PCP - General Internal Medicine 11/24/20 01/11/21 Callum Hernandez DO [address] [place] [place] [address] PCP - General Internal Medicine 01/12/21 03/19/21 Lopez Brennan MD [address] [place], [place] [phone] PCP - General Internal Medicine 03/20/21 10/19/21 Buddy Shaw NP [address] [place] [address] PCP - General Family Practice 10/20/21 01/04/22 [facility], Pcp [address] [place] [address] PCP - General Internal Medicine 01/05/22 11/28/22 Buddy Shaw NP [address] [place] [address] PCP - General Family Practice 11/29/22 documented as of this encounter
--- OUTSIDE RECORDS SUMMARY | 2024-07-29 09:38 | XMS_ITS | Encounter Summary ---
Author Organization [facility] Address [address] [place] [address] Care Team Providers Care Pocket Creaser Name Role Phone Celina Mann DO Primary Care Pro vider Unavailable Mercedes Han MD Primary Care Provider [phone] Callum Hernandez DO Primary Care Provider Lopez Lu MD Primary Care Provider Buddy Foy NP Primary Care Provider Unavail [facility] Pcp Primary Care Provider Buddy Marlow NP Primary Care Provider Unavail able Encounter Details Date Type Department Care Team Description 04/11/2016 Release of Information Medical Records [address] [place] [address] Abstract, Provider Social History Tobacco Use Types [...] on filedocumented in this encounter Care Teams Pocket Creaser Relationship Specialty Start Date End Date Celina Mann DO PCP - General Internal Medicine 03/21/16 11/23/20 Mercedes Han MD [address] [place] [address] PCP - General Internal Medicine 11/24/20 01/11/21 Callum Hernandez DO [address] [place] [address] PCP - General Internal Medicine 01/12/21 03/19/21 Lopez Brennan MD [address] [place] [address] PCP - General Internal Medicine 03/20/21 10/19/21 Buddy Shaw NP [address] [place] [address] PCP - General Family Practice 10/20/21 01/04/22 [facility], Pcp [address] [place] [address] PCP - General Internal Medicine 01/05/22 11/28/22 Buddy Shaw NP [address] [place] [address] PCP - General Family Practice 11/29/22 documented as of this encounter
--- OUTSIDE RECORDS SUMMARY | 2024-07-29 09:38 | XMS_ITS | Encounter Summary ---
Author Organization [employer] [facility] Address [address] [place] [address] Care Team Providers Care Turbo Generator Oiler Name Role Phone Celina Mann DO Primary Care Pro vider Unavailable Mercedes Han MD Primary Care Provider [phone] Callum Hernandez DO Primary Care Provider Lopez Lu MD Primary Care Provider Buddy Foy NP Primary Care Provider Unavail [facility] Pcp Primary Care Provider Buddy Marlow NP Primary Care Provider Unavail able Encounter Details Date Type Department Care Team Description 07/17/2016 Court Usher Report Medical Records [address] [place] [address] Leandro Harvey V., DPHawa Social History Tobacco Use Types Packs/Day Years [...] on filedocumented in this encounter Care Teams Turbo Generator Oiler Relationship Specialty Start Date End Date Celina Mann DO PCP - General Internal Medicine 03/21/16 11/23/20 Mercedes Han MD [address] [place] [address] [phone] PCP - General Internal Medicine 11/24/20 01/11/21 Callum Hernandez DO [address] [place] [address] PCP - General Internal Medicine 01/12/21 03/19/21 Lopez Brennan MD [address] [place] [address] PCP - General Internal Medicine 03/20/21 10/19/21 Buddy Shaw NP [address] [place] [address] PCP - General Family Practice 10/20/21 01/04/22 [facility], Pcp [address] [place] [address] PCP - General Internal Medicine 01/05/22 11/28/22 Buddy Shaw NP [address] [place] [address] PCP - General Family Practice 11/29/22 documented as of this encounter
--- OUTSIDE RECORDS SUMMARY | 2024-07-29 09:38 | XMS_ITS | Encounter Summary ---
Author Organization [facility] Address [address] [place] [address] Care Team Providers Care Operations Research Engineer Name Role Phone Celina Mann DO Primary Care Pro vider Unavailable Mercedes Han MD Primary Care Provider [phone] Callum Hernandez DO Primary Care Provider Lopez Lu MD Primary Care Provider Buddy Foy NP Primary Care Provider Unavail able [facility], Pcp Primary Care Provider Buddy Marlow NP Primary Care Provider Unavail able Reason for Referral * EXTERNAL (Priority) - Authorized/Booked Specialty Diagnoses / Procedures Referred By Kailey dominguez Referred To Contact Rheumatology Procedures [place] [address] [place] [id number] [place] [address], [facility] [address] [place] [address] Referral ID Status Reason Start Date Expiration Date V isits Requested Visits Authorized SEE NOTE Authorized/B ooked 08/04/2018 11/05/2018 1 1 Encounter Details Date Type Department Care Team Description 08/04/2018 Orders Only Adult Medicine [address] [address] Celina Mann DO Social History Tobacco Use [...] on filedocumented in this encounter Care Teams Operations Research Engineer Relationship Specialty Start Date End Date Celina Mann DO PCP - General Internal Medicine 03/21/16 11/23/20 Mercedes Han MD [address] [place], [place] [phone] PCP - General Internal Medicine 11/24/20 01/11/21 Callum Hernandez DO [address] [place] [address] PCP - General Internal Medicine 01/12/21 03/19/21 Lopez Brennan MD [address] [place] [address] PCP - General Internal Medicine 03/20/21 10/19/21 Buddy Shaw NP [address] [place] [address] PCP - General Family Practice 10/20/21 01/04/[address] [address] PCP - General Internal Medicine 01/05/22 11/28/22 Buddy Shaw NP [address] [place] [address] PCP - General Family Practice 11/29/22 documented as of this encounter
--- OUTSIDE RECORDS SUMMARY | 2024-07-29 09:38 | XMS_ITS | Encounter Summary ---
Author Organization [employer] [facility] Address [address] [place] [address] Care Team Providers Care Office Administration Name Role Phone Luciano Skinner MD Primary Care Provider Katherine Blake Bourgeois MD Primary Care Provider Unavail able Celina Mann DO Primary Care Pro vider Unavailable Mercedes Han MD Primary Care Provider [phone] Celina Mann DO Primary Care Pro vider Unavailable Mercedes Han MD Primary Care Provider + [phone] Callum Hernandez DO Primary Care Provider Katherine Lopez Aragon MD Primary Care Provider Buddy Foy NP Primary Care Provider Unavail able [facility] Primary Care Provider UnavailBuddy Stephen NP Primary Care Provider Unavail able Encounter Details Date Type Department Care Team Description 03/15/2014 Nuclear Radiation Engineer Report Medical Records [address] [place] [address] Social History Tobacco Use Types Packs/Day Years Used Date Smoking Tobacco: Every Day Cigarettes 25 Smokeless Tobacco: Never Comments:2 cig per day was . 75 ppd Alcohol Use Standard Drinks/Week Comments No 0 [...] on filedocumented in this encounter Care Teams Office Administration Relationship Specialty Start Date End Date Luciano Skinner MD PCP - General 12/13/10 05/10/14 Blake Rivera MD PCP - General Internal Medicine 05/11/14 03/03/15 Celina Mann, DO PCP - General Internal Medicine 03/04/15 02/06/16 Mercedes Han MD [address] [place] [address] PCP - General Internal Medicine 02/07/16 03/20/16 Celina Mann, PCP - General Internal Medicine 03/21/16 11/23/20 Mercedes Han MD [address] [place] [address] PCP - General Internal Medicine 11/24/20 01/11/21 Callum Hernandez DO [address] [place] [address] PCP - General Internal Medicine 01/12/21 03/19/21 Lopez Brennan MD [address] [place] [address] PCP - General Internal Medicine 03/20/21 10/19/21 Buddy Shaw NP [address] [place] [address] PCP - General Family Practice 10/20/21 01/04/22 [facility], Pcp [address] [place] [address] PCP - General Internal Medicine 01/05/22 11/28/22 Buddy Shaw NP [address] [place] [address] PCP - General Family Practice 11/29/22 documented as of this encounter
--- OUTSIDE RECORDS SUMMARY | 2024-07-29 09:38 | XMS_ITS | Encounter Summary ---
Author Organization [employer] [facility] Address [address] [place] [address] Care Team Providers Care Woodwork Teacher Name Role Phone Celina Mann DO Primary Care Pro vider Unavailable Mercedes Han MD Primary Care Provider [phone] Callum Hernandez DO Primary Care Provider Lopez Lu MD Primary Care Provider Buddy Foy NP Primary Care Provider Unavail [facility] Pcp Primary Care Provider Bdudy Marlow NP Primary Care Provider Unavail able Encounter Details Date Type Department Care Team Description 11/21/2020 Coater Slate Report Medical Records [address] [place] [address] Center[facility] [address] [place] [address] Social History Tobacco Use Types Packs/Day Years [...] on filedocumented in this encounter Care Teams Woodwork Teacher Relationship Specialty Start Date End Date Celina Mann DO PCP - General Internal Medicine 03/21/16 11/23/20 Mercedes Han MD [address] [place], [place] [phone] PCP - General Internal Medicine 11/24/20 01/11/21 Callum Hernandez DO [address] [place] [address] PCP - General Internal Medicine 01/12/21 03/19/21 Lopez Brennan MD [address] [place] [address] PCP - General Internal Medicine 03/20/21 10/19/21 Buddy Shaw NP [address] [place] [address] PCP - General Family Practice 10/20/21 01/04/22 [facility], Pcp [address] [place] [address] PCP - General Internal Medicine 01/05/22 11/28/22 Buddy Shaw NP [address] [place] [address] PCP - General Family Practice 11/29/22 documented as of this encounter
--- OUTSIDE RECORDS SUMMARY | 2024-07-29 09:38 | XMS_ITS | Encounter Summary ---
Author Organization [facility] Address [address] [place] [address] Care Team Providers Care Ground Support Agent Name Role Phone Luciano Skinner MD Primary Care Provider Katherine Blake Bourgeois MD Primary Care Provider Unavail able Celina Mann DO Primary Care Pro vider Unavailable Mercedes Han MD Primary Care Provider [phone] Celina Mann DO Primary Care Pro vider Unavailable Mercedes Han MD Primary Care Provider [phone] Callum Hernandez DO Primary Care Provider Katherine Lopez Aragon MD Primary Care Provider UnaBuddy Castellanos NP Primary Care Provider Unavail able [facility], Pcp Primary Care Provider UnavailBuddy Stephen NP Primary Care Provider Unavail able Reason for Visit * Reason Onset Date Comments medication problems 03/19/2012 Encounter Details Date Type Department Care Team Description 03/19/2012 Telephone Adult Medicine [address] [address] Luciano Skinner MD medication problems Social History Tobacco Use Types Packs/Day Years [...] encounter Miscellaneous Notes * Telephone Encounter - Luciano Skinner MD - 03/19/2012 12:40 PM EDT Call * Telephone Encounter - Cristal Mccarthy - 03/19/2012 9:40 AM EDT Patient given hydrocodone 5/500 mg For pain . Patient states after one dose it did not help with pain , kept her up all night, and now she has a headache . Please advise [phone] documented in this encounter Plan of Treatment Not on file documented as of this encounter Visit Diagnoses Not on filedocumented in this encounter Care Teams Ground Support Agent Relationship Specialty Start Date End Date Luciano Skinner MD PCP - General 12/13/10 05/10/14 Blake Rivera MD PCP - General Internal Medicine 05/11/14 03/03/15 Celina Mann DO PCP - General Internal Medicine 03/04/15 02/06/16 Mercedes Han MD [address] [place] [address] PCP - General Internal Medicine 02/07/16 03/20/16 Celina Mann DO PCP - General Internal Medicine 03/21/16 11/23/20 Mercedes Han MD [address] [place] [address] PCP - General Internal Medicine 11/24/20 01/11/21 Callum Hernandez DO [address] [place] [address] PCP - General Internal Medicine 01/12/21 03/19/21 Lopez Brennan MD [address] [place], [place] [id number] PCP - General Internal Medicine 03/20/21 10/19/21 Buddy Shaw NP [address] [place], [place] [id number] PCP - General Family Practice 10/20/21 01/04/22 [facility], Pcp [address] [place] [address] PCP - General Internal Medicine 01/05/22 11/28/22 Buddy Shaw NP [address] [place] [address] PCP - General Family Practice 11/29/22 documented as of this encounter
--- OUTSIDE RECORDS SUMMARY | 2024-07-29 09:38 | XMS_ITS | Encounter Summary ---
Author Organization [facility] Address [address] [place] [address] Care Team Providers Care Human Resource Professional Name Role Phone Blake Rivera MD Primary Care Provider Unavail able Celina Mann DO Primary Care Pro vider Unavailable Mercedes Han MD Primary Care Provider [phone] Celina Mann DO Primary Care Pro vider Unavailable Mercedes Han MD Primary Care Provider [phone] Callum Hernandez DO Primary Care Provider Lopez Lu MD Primary Care Provider Buddy Foy NP Primary Care Provider Unavail able [facility] Pcp Primary Care Provider Buddy Marlow NP Primary Care Provider Unavail able Encounter Details Date Type Department Care Team Description 06/28/2014 Line Supply Report Medical Records [address] [place] [address] Abstract, Provider Social History Tobacco Use Types [...] on filedocumented in this encounter Care Teams Human Resource Professional Relationship Specialty Start Date End Date Blake Rivera MD PCP - General Internal Medicine 05/11/14 03/03/15 Celina Mann DO PCP - General Internal Medicine 03/04/15 02/06/16 Mercedes Hna MD [address] [place] [address] PCP - General Internal Medicine 02/07/16 03/20/16 Celina Mann DO PCP - General Internal Medicine 03/21/16 11/23/20 Mercedes Han MD [address] [place] [address] PCP - General Internal Medicine 11/24/20 01/11/21 Callum Hernandez DO [address] [place], [place] [phone] PCP - General Internal Medicine 01/12/21 03/19/21 Lopez Brennan MD [address] [place] [address] PCP - General Internal Medicine 03/20/21 10/19/21 Buddy Shaw NP [address] [place] [address] PCP - General Family Practice 10/20/21 01/04/22 [facility], Pcp [address] [place] [address] PCP - General Internal Medicine 01/05/22 11/28/22 Buddy Shaw NP [address] [place] [address] PCP - General Family Practice 11/29/22 documented as of this encounter
--- OUTSIDE RECORDS SUMMARY | 2024-07-29 09:38 | XMS_ITS | Encounter Summary ---
Author Organization [facility] Address [address] [place] [address] Care Team Providers Care Senior Marketing Manager Name Role Phone Luciano Skinner MD Primary Care Provider Katherine Javed Lindsay MD Primary Care Provider UnaBlake Traore MD Primary Care Provider Unavail able Celina Mann DO Primary Care Pro vider Unavailable Mercedes Han MD Primary Care Provider + [phone] Celina Mann DO Primary Care Pro vider Unavailable Mercedes Han MD Primary Care Provider + [phone] Callum Hernandez DO Primary Care Provider Lopez Lu MD Primary Care Provider Buddy Foy NP Primary Care Provider Unavail able [facility] Primary Care Provider UnavailBuddy Stephen NP Primary Care Provider Unavail able Encounter Details Date Type Department Care Team Description 12/12/2005 Hospital Medical Records [address] [place] [address] Olvin Joseph MD Social History Tobacco Use Types Packs/Day [...] on filedocumented in this encounter Care Teams Senior Marketing Manager Relationship Specialty Start Date End Date Luciano Skinner MD PCP - General 12/13/10 05/10/14 Javed Kulkarni MD PCP - General 03/15/00 12/12/10 Blake Rivera MD PCP - General Internal Medicine 05/11/14 03/03/15 Celina Mann, PCP - General Internal Medicine 03/04/15 02/06/16 Mercedes Han MD [address] [place] [address] PCP - General Internal Medicine 02/07/16 03/20/16 Celina Mann, PCP - General Internal Medicine 03/21/16 11/23/20 Mercedes aHn MD [address] [place] [address] PCP - General Internal Medicine 11/24/20 01/11/21 Callum Hernandez, [address] [place] [address] PCP - General Internal Medicine 01/12/21 03/19/21 Lopez Brennan MD [address] [place] [address] PCP - General Internal Medicine 03/20/21 10/19/21 Buddy Shaw NP [address] [place] [address] PCP - General Family Practice 10/20/21 01/04/22 [facility], Pcp [address] [place] [address] PCP - General Internal Medicine 01/05/22 11/28/22 Buddy Shaw NP [address] [place] [address] PCP - General Family Practice 11/29/22 documented as of this encounter
--- OUTSIDE RECORDS SUMMARY | 2024-07-29 09:38 | XMS_ITS | Encounter Summary ---
Author Organization [facility] Address [address] [place] [address] Care Team Providers Care Cold Roller Name Role Phone Celina Mann DO Primary Care Pro vider Unavailable Mercedes Han MD Primary Care Provider Callum Hernandez DO Primary Care Provider Lopez Lu MD Primary Care Provider Buddy Foy NP Primary Care Provider Unavail [facility] Pcp Primary Care Provider Buddy Marlow NP Primary Care Provider Unavail able Encounter Details Date Type Department Care Team Description 04/28/2018 Cutting And Boning Supervisor Report Medical Records [address] [place] [address] Tristen Díaz MD Social History Tobacco Use Types Packs/Day [...] on filedocumented in this encounter Care Teams Cold Roller Relationship Specialty Start Date End Date Celina Mann DO PCP - General Internal Medicine 03/21/16 11/23/20 Mercedes Han MD [address] [place] [address] PCP - General Internal Medicine 11/24/20 01/11/21 Callum Hernandez DO [address] [place] [address] PCP - General Internal Medicine 01/12/21 03/19/21 Lopez Brennan MD [address] [place], [place] [phone] PCP - General Internal Medicine 03/20/21 10/19/21 Buddy Shaw NP [address] [place] [address] PCP - General Family Practice 10/20/21 01/04/22 [facility] [place] [id number] PCP - General Internal Medicine 01/05/22 11/28/22 Buddy Shaw NP [address] [place] [address] PCP - General Family Practice 11/29/22 documented as of this encounter
--- OUTSIDE RECORDS SUMMARY | 2024-07-29 09:38 | XMS_ITS | Encounter Summary ---
Author Organization [facility] Address [address] [place] [address] Care Team Providers Care Business Test Analyst Name Role Phone Luciano Skinner MD Primary Care Provider Katherine Blake Bourgeois MD Primary Care Provider Unavail able Celina Mann DO Primary Care Pro vider Unavailable Mercedes Han MD Primary Care Provider + [phone] Celina Mann DO Primary Care Pro vider Unavailable Mercedes Han MD Primary Care Provider + [phone] Callum Hernandez DO Primary Care Provider Katherine Lopez Aragon MD Primary Care Provider UnaBuddy Castellanos NP Primary Care Provider Unavail able [facility], Pcp Primary Care Provider UnavailBuddy Stephen NP Primary Care Provider Unavail able Encounter Details Date Type Department Care Team Description 11/25/2012 Traffic Rate Analyst Report Medical Records [address] [place] [address] Jesús Martinez Social History Tobacco Use Types [...] on filedocumented in this encounter Care Teams Business Test Analyst Relationship Specialty Start Date End Date Luciano Skinner MD PCP - General 12/13/10 05/10/14 Blake Rivera MD PCP - General Internal Medicine 05/11/14 03/03/15 Celina Mann, DO PCP - General Internal Medicine 03/04/15 02/06/16 Mercedes Han MD [address] [place] [address] PCP - General Internal Medicine 02/07/16 03/20/16 Celina Mann, PCP - General Internal Medicine 03/21/16 11/23/20 Mercedes Han MD [address] [place] [address] PCP - General Internal Medicine 11/24/20 01/11/21 Callum Hernandez DO [address] [place] [address] PCP - General Internal Medicine 01/12/21 03/19/21 Lopez Brennan MD [address] [place] [address] PCP - General Internal Medicine 03/20/21 10/19/21 Buddy Shaw NP [address] [place] [address] PCP - General Family Practice 10/20/21 01/04/22 [facility], Pcp [address] [place] [address] PCP - General Internal Medicine 01/05/22 11/28/22 Buddy Shaw NP [address] [place] [address] PCP - General Family Practice 11/29/22 documented as of this encounter
--- OUTSIDE RECORDS SUMMARY | 2024-07-29 09:38 | XMS_ITS | Encounter Summary ---
Author Organization [facility] Address [address] [place] [address] Care Team Providers Care Stunt Man Name Role Phone Luciano Skinner MD Primary Care Provider Katherine Blake Bourgeois MD Primary Care Provider Unavail able Celina Mann DO Primary Care Pro vider Unavailable Mercedes Han MD Primary Care Provider [phone] Celina Mann DO Primary Care Pro vider Unavailable Mercedes Han MD Primary Care Provider [phone] Callum Hernandez DO Primary Care Provider Katherine Lopez Aragon MD Primary Care Provider UnaBuddy Castellanos NP Primary Care Provider Unavail able [facility], Pcp Primary Care Provider UnavailBuddy Stephen NP Primary Care Provider Unavail able Reason for Referral * Specialist (Routine) - Authorized/Booked Specialty Diagnoses / Procedures Referred By Kailey t Referred To Contact Neurology Procedures REFERRAL TO NEUROLOGY Luciano Skinner MD [address] [place] [id number] External Neurology Referral ID Status Reason Start Date Expiration Date V isits Requested Visits Authorized SEE REVIEW 12/11/11 Authorized/ Booked 12/10/2011 03/12/2012 1 1 Encounter Details Date Type Department Care Team Description 12/07/2011 Pt. Non Urgent Medical Question Adult Medicine [address] [address] Luciano Skinner MD Abnormal CT scan of head (Primary Dx); Memory difficulties Social History Tobacco Use Types Packs/Day Years [...] as of this encounter Progress Notes * Amalia Garcia M.A. - 12/10/2011 7:48 AM EDTFrom: NEREIDA VILLAFUERTE To: Luciano Skinner MD Sent: SatDec 07, 2011 5:24 PM Subject: ct scan Dr. Dr. Skinner, I was just wondering how my CT SCAN came out? Thank you Arianna Nitza documented in this encounter Plan of Treatment Not on file documented as of this encounter Visit Diagnoses Diagnosis Abnormal CT scan of head- Primary Nonspecific (abnormal) findings on radiological and other examination of skull and head Memory difficulties Memory loss documented in this encounter Care Teams Stunt Man Relationship Specialty Start Date End Date Luciano Skinner MD PCP - General 12/13/10 05/10/14 Blake Rivera MD PCP - General Internal Medicine 05/11/14 03/03/15 Celina Mann DO PCP - General Internal Medicine 03/04/15 02/06/16 Mercedes Han MD [address] [place] [address] PCP - General Internal Medicine 02/07/16 03/20/16 Celina Mann DO PCP - General Internal Medicine 03/21/16 11/23/20 Mercedes Han MD [address] [place] [address] PCP - General Internal Medicine 11/24/20 01/11/21 Callum Hernandez DO [address] [place] [address] PCP - General Internal Medicine 01/12/21 03/19/21 Lopez Brennan MD [address] [place] [address] PCP - General Internal Medicine 03/20/21 10/19/21 Buddy Shaw NP [address] [place] [address] PCP - General Family Practice 10/20/21 01/04/22 [facility], Pcp [address] [place] [address] PCP - General Internal Medicine 01/05/22 11/28/22 Buddy Shaw NP [address] [place] [address] PCP - General Family Practice 11/29/22 documented as of this encounter
--- OUTSIDE RECORDS SUMMARY | 2024-07-29 09:38 | XMS_ITS | Clinical Summary ---
Author Organization [facility] Address [address] [place] [address] Care Team Providers Care Global Climate Change Analyst Name Role Phone Buddy Shaw NP Primary Care Provider Surgical History Surgery Date Site/Laterality Comments ROTATOR CUFF REPAIR 07/2007 PROCEDURE: HISTORICAL ROTATOR CUFF REPAIR; COMMENT: Dr Ladd - left shoulder OTHER SURGICAL HISTORY 09/2008 PROCEDURE: HISTORICAL VAGINAL HYSTERECTOMY WITH BSO; COMMENT: BSO by op note, Dr. Pierre COLONOSCOPY 01/28/2008 PROCEDURE: HISTORICAL COLONOSCOPY; COMMENT: Negative COLONOSCOPY 01/23/2018 PROCEDURE: HISTORICAL COLONOSCOPY; COMMENT: Procedure discontinued due to inadequate prep. COLONOSCOPY 04/15/2018 PROCEDURE: HISTORICAL COLONOSCOPY; COMMENT: Diverticulosis; 6 mm sigmoid colon polyp: hyperplastic. Medical History Medical History Date Comments Allergic rhinitis, cause unspecified 04/20/2005 DX:Allergic rhinitis, cause unspecified Family history of colonic polyps 01/28/2008 DX:Family history of colonic polyps; COMMENT: Father with colonic polyps older than 60. Negative colonoscopy 01/28/2008, no colon cancer screening needed for 10 years. Neurogenic bladder DX:Neurogenic bladder; COMMENT: self-cath qid/ Dr. Pierre FIORDALIZA positive DX:FIORDALIZA positive CINDY on CPAP DX:CINDY on CPAP Osteopenia DX:Osteopenia History of colonoscopy 04/15/2018 DX:Histor y of colonoscopy; COMMENT: 04/15/2018: Inadequate results with one day bowel prep. Needs a 2 day bowel prep. Needs monitored anesthesia care. See colonoscopy report. Family History Medical History Relation Name Comments Colon polyps Father age > 60 Breast cancer Neg Hx Relation Name Status Comments Brother Alive htn, hyperlipid emia Father (Age 81) dementia, colon polyps Mother Alive macular degener ation Social History Tobacco Use Types Packs/Day Years Used Date Smoking Tobacco: Light Smoker Cigarettes Last attempted t o quit: 1974 Smokeless Tobacco: Never Alcohol Use Standard Drinks/Week Comments Yes 0 (1 standard drink = 0.6 oz pur e alcohol) Comments Unknown Sex and Gender Information Value Date Recorded Sex Assigned at Not on file Legal Sex Female 8:03 AM EST Gender Identity Not on file Sexual Orientation Not on file Obstetrics History Plan of Treatment Health Maintenance Due Date Last Done Comments Pneumococcal Vaccine: 50+ Years (1 of 2 - PCV) 02/21/1976 Zoster Vaccines (1 of 2) 02/21/1976 RSV Immunization Patients 60+ Years Old (1 - Risk 60-74 years 1-dose series) 2017 DTaP,Tdap,and Td Vaccines (3 - Td or Tdap) 03/20/2020 03/20/2010, 04/26/1999 COVID-19 Vaccine (3 - Moderna risk series) 11/01/2021 10/04/2021, 07/25/2020 Cholesterol Screening (Lipid Panel) 05/12/2022 Colorectal Cancer Screening: Colonoscopy 05/12/2022 Depression Screening 05/12/2022 Falls Risk Assessment 05/12/2022 Hepatitis C Screening 05/12/2022 Osteoporosis Screening (Bone Density Screening) 05/12/2022 Social Influencers of Health Screening 05/12/2022 Breast Cancer Screening 11/29/2023 11/29/19 22, 09/17/2020, 02/21/2019, Additional history exists Influenza Vaccine (#1) 2024 0, 02/10/2018, 02/22/2017, Additional history exists HIB Vaccines Aged Out No longer eligi ble based on patient's age to complete this topic HPV Vaccines Aged Out No longer eligi ble based on patient's age to complete this topic Hepatitis A Vaccines Aged Out No long er eligible based on patient's age to complete this topic Hepatitis B Vaccines Aged Out No long er eligible based on patient's age to complete this topic IPV Vaccines Aged Out No longer eligi ble based on patient's age to complete this topic MMR Vaccines Aged Out No longer eligi ble based on patient's age to complete this topic Meningococcal ACWY Vaccine Aged Out N o longer eligible based on patient's age to complete this topic Meningococcal B Vacine Aged Out No lo nger eligible based on patient's age to complete this topic RSV Immunization Patients Under 20 months Aged Out No longer eligible based on patient's age to complete this topic Varicella Vaccines Aged Out No longer eligible based on patient's age to complete this topic Procedures Procedure Name Priority Date/Time Associated Diagnosis Comments SCREENING MAMMOGRAPHY BI 2-VIEW BREAST INC CAD Routine 11/28/2021 3:53 PM EDT Encounter for screening mammogram for malignant neoplasm of breast from Last 3 Months or Most Recently Relevant to Health Maintenance Results * SCREENING MAMMOGRAPHY BI 2-VIEW BREAST INC CAD (11/28/2021 3:53 PM EDT) Anatomical Region Laterality Modality Radiographic Sarah ging 09/17/2020 10:3 7 AM EDT Narrative 11/29/2021 8:31 AM EDT This is a summary report. The complete report is available in the patient's medical record. If you cannot access the medical record, please contact the sending organization for a detailed fax or copy. Exam: Screening mammogram Findings: Digital bilateral full-field screening mammography is performed with tomosynthesis and interpreted with the aid of computer-aided detection. ??Comparison is made with 09/17/2020 and as far back as 02/02/2017. Breast parenchyma is composed of scattered fibroglandular densities. ??No new suspicious mass, architectural distortion, or suspicious calcifications. Impression: No mammographic evidence of malignancy. BI-RADS 1 - negative Procedure Note Mckenzie Littlejohn MD - 05/22/2022 This is a summary report. The complete report is available in thepatient's medical record. If you cannot access the medical record, pleasecontact the sending organization for a detailed fax or copy. Exam: Screening mammogram Findings: Digital bilateral full-field screening mammography is performedwith tomosynthesis and interpreted with the aid of computer-aideddetection. Comparison is made with 09/17/2020 and as far back as02/02/2017. Breast parenchyma is composed of scattered fibroglandular densities. Nonew suspicious mass, architectural distortion, or suspiciouscalcifications. Impression: No mammographic evidence of malignancy. BI-RADS 1 - negative us Buddy Shaw NP IMG XR PROCEDURES Final Resu lt from Last 3 Months or Most Recently Relevant to Health Maintenance Care Teams Global Climate Change Analyst Relationship Specialty Start Date End Date Buddy Shaw, HR MANAGER [address] [place], [place] PCP - General 11/29/22
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
--- OUTSIDE RECORDS SUMMARY | 2024-07-29 09:38 | XMS_ITS | Encounter Summary ---
Author Organization [facility] Address [address] [place] [address] Care Team Providers Care Heavy Duty Press Operator Name Role Phone Celina Mann DO Primary Care Pro vider Unavailable Mercedes Han MD Primary Care Provider [phone] Callum Hernandez DO Primary Care Provider Lopez Lu MD Primary Care Provider Buddy Foy NP Primary Care Provider Unavail able [facility], Pcp Primary Care Provider Buddy Marlow NP Primary Care Provider Unavail able Reason for Referral * EXTERNAL (Routine) - Authorized/Booked Specialty Diagnoses / Procedures Referred By Kailey dominguez Referred To Contact Neurology Procedures REFERRAL TO NEUROLOGY Celina Mann DO [address] [place] [address] Tristen Díaz MD Referral ID Status Reason Start Date Expiration Date V isits Requested Visits Authorized SEE NOTE Authorized/B ooked 09/12/2016 12/19/2016 1 1 Encounter Details Date Type Department Care Team Description 09/12/2016 Orders Only Adult Medicine [address] [id number] Celina Mann DO Social History Tobacco Use [...] on filedocumented in this encounter Care Teams Heavy Duty Press Operator Relationship Specialty Start Date End Date Celina Mann DO PCP - General Internal Medicine 03/21/16 11/23/20 Mercedes Han MD [address] [place] [address] PCP - General Internal Medicine 11/24/20 01/11/21 Callum Hernandez DO [address] [place] [address] PCP - General Internal Medicine 01/12/21 03/19/21 Lopez Brennan MD [address] [place] [address] PCP - General Internal Medicine 03/20/21 10/19/21 Buddy Shaw NP [address] [place] [address] PCP - General Family Practice 10/20/21 01/04/22 [place] [address] PCP - General Internal Medicine 01/05/22 11/28/22 Buddy Shaw NP [address] [place] [address] PCP - General Family Practice 11/29/22 documented as of this encounter
--- OUTSIDE RECORDS SUMMARY | 2024-07-29 09:38 | XMS_ITS | Encounter Summary ---
Author Organization [facility] Address [address] [place] [address] Care Team Providers Care Bolt Header Name Role Phone Luciano Skinner MD Primary Care Provider Katherine Blake Bourgeois MD Primary Care Provider Unavail able Celina Mann DO Primary Care Pro vider Unavailable Mercedes Han MD Primary Care Provider + [phone] Celina Mann DO Primary Care Pro vider Unavailable Mercedes Han MD Primary Care Provider [phone] Callum Hernandez DO Primary Care Provider Katherine Lopez Aragon MD Primary Care Provider UnaBuddy Castellanos NP Primary Care Provider Unavail able [facility], Pcp Primary Care Provider UnavailBuddy Stephen NP Primary Care Provider Unavail able Encounter Details Date Type Department Care Team Description 12/31/2013 Hospital Medical Records [address] [place] [address] Chao Falcon Social History Tobacco Use Types Packs/Day Years [...] on filedocumented in this encounter Care Teams Bolt Header Relationship Specialty Start Date End Date Luciano Skinner MD PCP - General 12/13/10 05/10/14 Blake Rivera MD PCP - General Internal Medicine 05/11/14 03/03/15 Celina Mann, PCP - General Internal Medicine 03/04/15 02/06/16 Mercedes Han MD [address] [place] [address] PCP - General Internal Medicine 02/07/16 03/20/16 Celina Mann, PCP - General Internal Medicine 03/21/16 11/23/20 Mercedes Han MD [address] [place] [address] PCP - General Internal Medicine 11/24/20 01/11/21 Callum Hernandez DO [address] [place] [address] PCP - General Internal Medicine 01/12/21 03/19/21 Lopez Brennan MD [address] [place] [address] PCP - General Internal Medicine 03/20/21 10/19/21 Buddy Shaw NP [address] [place] [address] PCP - General Family Practice 10/20/21 01/04/22 [facility], [address] [address] PCP - General Internal Medicine 01/05/22 11/28/22 Buddy Shaw NP [address] [place] [address] PCP - General Family Practice 11/29/22 documented as of this encounter
--- OUTSIDE RECORDS SUMMARY | 2024-07-29 09:38 | XMS_ITS | Encounter Summary ---
Author Organization [employer] [facility] Address [address] [place] [address] Care Team Providers Care Goat Driver Name Role Phone Celina Mann DO Primary Care Pro vider Unavailable Mercedes Han MD Primary Care Provider [phone] Callum Hernandez DO Primary Care Provider Lopez Lu MD Primary Care Provider Buddy Foy NP Primary Care Provider Unavail [facility] Pcp Primary Care Provider Buddy Marlow NP Primary Care Provider Unavail [facility] Encounter Details Date Type Department Care Team Description 08/25/2018 Release of Information Medical Records [address] [place] [address] Abstract, Provider Social History Tobacco Use Types [...] on filedocumented in this encounter Care Teams Goat Driver Relationship Specialty Start Date End Date Celina Mann DO PCP - General Internal Medicine 03/21/16 11/23/20 Mercedes Han MD [address] [place] [address] PCP - General Internal Medicine 11/24/20 01/11/21 Callum Hernandez DO [address] [place] [address] PCP - General Internal Medicine 01/12/21 03/19/21 Lopez Brennan MD [address] [place] [address] PCP - General Internal Medicine 03/20/21 10/19/21 Buddy Shaw NP [address] [place] [address] PCP - General Family Practice 10/20/21 01/04/22 [facility], Pcp [address] [place] [address] PCP - General Internal Medicine 01/05/22 11/28/22 Buddy Shaw NP [address] [place], [place] [address] PCP - General Family Practice 11/29/22 documented as of this encounter
--- OUTSIDE RECORDS SUMMARY | 2024-07-29 09:38 | XMS_ITS | Patient Health Record ---
Author Organization [facility] Address [address] [facility] [place] [address] Care Team Providers Care Business Systems Administrator Name Role Phone Buddy Bolden Primary Care Provider Unav ailable Leandro Harvey Unavailable [phone] Allergies Allergen (clinical drug ingredient) Drug/Non Drug [...] W/U Status Risk Notes Problem Tinea unguium (845080013) Tinea unguium (B35.1) Active confirmed Response to treatment,Un resolved Problem Plantar wart (43011181) Plantar wart (B07.0) Active confirmed Vital Signs Height 5ft4in in 03/03/2024 Weight 208 lbs 03/03/2024 BMI 35.7 kg/m2 03/03/2024 Procedures Procedure Date Ordered Date Performed Result Body Sit e 98727-Xrrh Destruction, 1-14 03/03/2024 N/A Encounters Encounter Location Date Provider Diagnosis [facility] [address] 03/03/2024 Leandro Harvey Tinea unguium B35.1 ; Pain in right toe(s) M79.674 ; Pain in left toe(s) M79.675 ; Plantar wart B07.0 and Left foot pain M79.672 [facility] [address] 09/18/2023 [facility] [address] 06/05/2024 Leandro Harvey Assessments Encounter Date Diagnosis [...] Treatment Pending Test Test Name Order Date 74638-Wppi Destruction, 1-14 03/03/2024 49277- Removal of Foreign Body, Subcut 1 50,B6598-SBD TENDON SHEATH/LIGAMENT 1 50,L2935-CJR TENDON SHEATH/LIGAMENT 0 02/15/201484573,X3347-MWR TENDON SHEATH/LIGAMENT 0 02/23/201433056,F4968-QFK TENDON SHEATH/LIGAMENT 1 Insurance Providers Payer Name Payer Address Payer Phone Subscriber Number Group Number Insured Name Patient Relationship to Insured Coverage Start Date Coverage End Date Medicare National Govt Sv[employer] [address] [place] [address] [id number] Rae Nereida Self - patient is the insured [employer] [address] [place] [address] [id number] Rae Nereida Self - patient is the insured Medical (General) History Medical History History ICD Code Anxiety Arthritis Back,Hip,and Knee pain sinusitis Measles Mumps Chicken pox Joint implants/screws CAD (Cholesterol) Depression Surgical History Surgery Date(Month/Year) rods in both shoulders Left SQ Plantar Fibroma/S.T. Mass (Unspe c) 09/2014 rotator cuff 2006 colonoscopy
--- OUTSIDE RECORDS SUMMARY | 2024-07-29 09:39 | XMS_ITS | Encounter Summary ---
Author Organization [facility] Address [address] [place] [address] Care Team Providers Care Assembler Tractor Name Role Phone Luciano Skinner MD Primary Care Provider Katherine Blake Bourgeois MD Primary Care Provider Unavail able Celina Mann DO Primary Care Pro vider Unavailable Mercedes Han MD Primary Care Provider [phone] Celina Mann DO Primary Care Pro vider Unavailable Mercedes Han MD Primary Care Provider [phone] Callum Hernandez DO Primary Care Provider Katherine Lopez Aragon MD Primary Care Provider UnaBuddy Castellanos NP Primary Care Provider Unavail able [facility], Pcp Primary Care Provider UnavailBuddy Stephen NP Primary Care Provider Unavail able Encounter Details Date Type Department Care Team Description 09/19/2012 Pt. Non Urgent Medical Question Adult Medicine [address] [address] Luciano Skinner MD Social History Tobacco Use [...] Progress Notes * Amalia Garcia M.A. - 09/19/2012 2:41 PM EDTFrom: NEREIDA GODDARD To: Luciano Skinner MD Sent: SatSep 19, 2012 1:18 PM Subject: echocardiogram Dear Dr. Skinner, I was wondering if you had my results of my echocardiogram? Arianna Goddard documented in this encounter Plan of Treatment Not on file documented as of this encounter Visit Diagnoses Not on filedocumented in this encounter Care Teams Assembler Tractor Relationship Specialty Start Date End Date Luciano Skinner MD PCP - General 12/13/10 05/10/14 Blake Rivera MD PCP - General Internal Medicine 05/11/14 03/03/15 Celina Mann, PCP - General Internal Medicine 03/04/15 02/06/16 Mercedes Han MD [address] [place] [address] PCP - General Internal Medicine 02/07/16 03/20/16 Celina Mann, PCP - General Internal Medicine 03/21/16 11/23/20 Mercedes Han MD [address] [place] [address] PCP - General Internal Medicine 11/24/20 01/11/21 Callum Hernandez DO [address] [place] [address] PCP - General Internal Medicine 01/12/21 03/19/21 Lopez Brennan MD [address] [place] [address] PCP - General Internal Medicine 03/20/21 10/19/21 Buddy Shaw NP [address] [place] [address] PCP - General Family Practice 10/20/21 01/04/22 [facility], [address] [address] PCP - General Internal Medicine 01/05/22 11/28/22 Buddy Shaw NP [address] [place] [address] PCP - General Family Practice 11/29/22 documented as of this encounter
--- OUTSIDE RECORDS SUMMARY | 2024-07-29 09:39 | XMS_ITS | Encounter Summary ---
Author Organization [employer] [facility] Address [address] [place] [address] Care Team Providers Care Lath Hand Name Role Phone Celina Mann DO Primary Care Pro vider Unavailable Mercedes Han MD Primary Care Provider [phone] Callum Hernandez DO Primary Care Provider Lopez Lu MD Primary Care Provider Buddy Foy NP Primary Care Provider Unavail [facility] Pcp Primary Care Provider Buddy Marlow NP Primary Care Provider Unavail able Encounter Details Date Type Department Care Team Description 11/02/2016 Specifications Writer Report Medical Records [address] [place] [address] Tristen Díaz MD Social History Tobacco Use [...] on filedocumented in this encounter Care Teams Lath Hand Relationship Specialty Start Date End Date Celina Mann DO PCP - General Internal Medicine 03/21/16 11/23/20 Mercedes Han MD [address] [place] [address] PCP - General Internal Medicine 11/24/20 01/11/21 Callum Hernandez DO [address] [place] [address] PCP - General Internal Medicine 01/12/21 03/19/21 Lopez Brennan MD [address] [place] [address] PCP - General Internal Medicine 03/20/21 10/19/21 Buddy Shaw NP [address] [place] [address] PCP - General Family Practice 10/20/21 01/04/22 [facility], Pcp [address] [place] [address] PCP - General Internal Medicine 01/05/22 11/28/22 Buddy Shaw NP [address] [place], [place] [address] PCP - General Family Practice 11/29/22 documented as of this encounter
--- OUTSIDE RECORDS SUMMARY | 2024-07-29 09:39 | XMS_ITS | Encounter Summary ---
Author Organization [facility] Address [address] [place] [address] Care Team Providers Care Psychology Assistant Name Role Phone Luciano Skinner MD Primary Care Provider Katherine Blake Bourgeois MD Primary Care Provider Unavail able Celina Mann DO Primary Care Pro vider Unavailable Mercedes Han MD Primary Care Provider [phone] Celina Mann DO Primary Care Pro vider Unavailable Mercedes Han MD Primary Care Provider [phone] Callum Hernandez DO Primary Care Provider Katherine Lopez Aragon MD Primary Care Provider Buddy Foy NP Primary Care Provider Unavail able [facility], Pcp Primary Care Provider UnavailBuddy Stephen NP Primary Care Provider Unavail able Encounter Details Date Type Department Care Team Description 08/27/2012 Hospital Medical Records [address] [place] [address] Pamela Shahid DO Social History Tobacco Use Types Packs/Day [...] on filedocumented in this encounter Care Teams Psychology Assistant Relationship Specialty Start Date End Date Luciano Skinner MD PCP - General 12/13/10 05/10/14 Blake Rivera MD PCP - General Internal Medicine 05/11/14 03/03/15 Celina Mann, PCP - General Internal Medicine 03/04/15 02/06/16 Mercedes Han MD [address] [place] [address] PCP - General Internal Medicine 02/07/16 03/20/16 Celina Mann, PCP - General Internal Medicine 03/21/16 11/23/20 Mercedes Han MD [address] [place] [address] PCP - General Internal Medicine 11/24/20 01/11/21 Callum Hernandez DO [address] [place] [address] PCP - General Internal Medicine 01/12/21 03/19/21 Lopez Brennan MD [address] [place] [address] PCP - General Internal Medicine 03/20/21 10/19/21 Buddy Shaw NP [address] [place] [address] PCP - General Family Practice 10/20/21 01/04/22 [facility], [address] [address] PCP - General Internal Medicine 01/05/22 11/28/22 Buddy Sahw NP [address] [place] [address] PCP - General Family Practice 11/29/22 documented as of this encounter
--- OUTSIDE RECORDS SUMMARY | 2024-07-29 09:39 | XMS_ITS | Encounter Summary ---
Author Organization [facility] Address [address] [place] [address] Care Team Providers Care Senior Net Architect Name Role Phone Luciano Skinner MD Primary Care Provider Katherine Javed Lindsay MD Primary Care Provider UnaBlake Traore MD Primary Care Provider Unavail able Celina Mann DO Primary Care Pro vider Unavailable Mercedes Han MD Primary Care Provider [phone] Celina Mann DO Primary Care Pro vider Unavailable Mercedes Han MD Primary Care Provider [phone] Callum Hernandez DO Primary Care Provider Lopez Lu MD Primary Care Provider Buddy Foy NP Primary Care Provider Unavail able [facility] Primary Care Provider UnavailBuddy Stephen NP Primary Care Provider Unavail able Encounter Details Date Type Department Care Team Description 08/03/2008 Hospital Medical Records [address] [place] [address] Chi Pierre Social History Tobacco Use Types [...] filedocumented in this encounter Care Teams Senior Net Architect Relationship Specialty Start Date End Date Luciano Skinner MD PCP - General 12/13/10 05/10/14 Javed Kulkarni MD PCP - General 03/15/00 12/12/10 Blake Rivera MD PCP - General Internal Medicine 05/11/14 03/03/15 Celina Mann, PCP - General Internal Medicine 03/04/15 02/06/16 Mercedes Han MD [address] [place] [address] PCP - General Internal Medicine 02/07/16 03/20/16 Celina Mann, PCP - General Internal Medicine 03/21/16 11/23/20 Mercedes Han MD [address] [place] [address] PCP - General Internal Medicine 11/24/20 01/11/21 Callum Hernandez, [address] [place] [address] PCP - General Internal Medicine 01/12/21 03/19/21 Lopez Brennan MD [address] [place] [address] PCP - General Internal Medicine 03/20/21 10/19/21 Buddy Shaw NP [address] [place] [address] PCP - General Family Practice 10/20/21 01/04/22 [facility], Pcp [address] [place] [address] PCP - General Internal Medicine 01/05/22 11/28/22 Buddy Shaw NP [address] [place] [address] PCP - General Family Practice 11/29/22 documented as of this encounter
== END 2024-07-29 09:39 | disposition home or self-care (01) ==
PROVIDERS: PCP Nurse Practitioner Family; Visit Provider Orthopaedic Surgery
DX: M72.0 Palmar fascial fibromatosis [Dupuytren] (principal); R20.0 Anesthesia of skin
CPT/HCPCS: 99214

== ENCOUNTER → 2024-07-29 08:50 | Outpatient (BNVA) | payer MEDICARE, SELFPAY | PROVIDERS: PCP Nurse Practitioner Family; Visit Provider Orthopaedic Surgery | DX: R20.0 Anesthesia of skin (principal); M72.0 Palmar fascial fibromatosis [Dupuytren] | CPT/HCPCS: 99212 ==

== ENCOUNTER 2024-08-26 11:35 | Outpatient (REF) | payer MEDICARE, SELFPAY ==
--- NOTE | 2024-08-26 11:38 | EMG_ITS ---
Chief complaint: Bilateral hand numbness, history of surgery for Dupuytren contracture Reason for referral: Evaluate for Carpal Tunnel Syndrome Referred by: Dr. Green Procedure done: Bilateral upper extremities NCS/EMG Precautions and/or limitations: None The limb temperature was monitored continuously and remained between 32-36 degrees C during the performance of the NCS. Nerve Conduction Studies Anti Sensory Summary Table ?Stim Site NR Onset (ms) Norm Onset (ms) Peak (ms) Norm Peak (ms) O-P Amp (?V) Norm O-P Amp Site1 Site2 Delta-0 (ms) Dist (cm) Jemal (m/s) Norm Jemal (m/s) Left Median Anti Sensory (2nd Digit) Wrist ? 2.4 3.0 <3.6 10.8 >10 Wrist 2nd Digit 2.4 14.0 58 Right Median Anti Sensory (2nd Digit) Wrist ? 2.3 2.9 <3.6 32.3 >10 Wrist 2nd Digit 2.3 14.0 61 Right Radial Anti Sensory (Thumb) Forearm ? 1.8 2.2 <3.1 5.4 Forearm Thumb 1.8 0.0 Left Ulnar Anti Sensory (5th Digit) Wrist ? 2.4 2.9 <3.7 17.3 >15.0 Wrist 5th Digit 2.4 14.0 58 Right Ulnar Anti Sensory (5th Digit) Wrist ? 2.3 2.9 <3.7 21.8 >15.0 Wrist 5th Digit 2.3 14.0 61 Motor Summary Table ?Stim Site NR Onset (ms) Norm Onset (ms) O-P Amp (mV) Norm O-P Amp iAmp (mV) Amp (1st) (%) Site1 Site2 Delta-0 (ms) Dist (cm) Jemal (m/s) Norm Jemal (m/s) Left Median Motor (Abd Poll Brev) Wrist ? 3.0 <3.9 7.8 >4.5 8.9 100.0 Elbow Wrist 3.3 17.0 52 >45 Elbow ? 6.3 7.7 8.6 98.7 Right Median Motor (Abd Poll Brev) Wrist ? 3.0 <3.9 5.0 >4.5 5.3 100.0 Elbow Wrist 3.4 18.5 54 >45 Elbow ? 6.4 4.3 4.8 87.8 Left Ulnar Motor (Abd Dig Minimi) Wrist ? 2.3 <3.0 6.4 >5 7.7 100.0 B Elbow Wrist 2.8 15.5 55 >45 B Elbow ? 5.1 6.2 7.6 96.9 A Elbow B Elbow 1.6 10.0 62 >45 A Elbow ? 6.7 5.6 7.4 87.5 Right Ulnar Motor (Abd Dig Minimi) Wrist ? 2.6 <3.0 4.9 >5 5.7 100.0 B Elbow Wrist 2.6 17.0 65 >45 B Elbow ? 5.2 6.6 8.0 134.7 A Elbow B Elbow 1.5 10.0 67 >45 A Elbow ? 6.7 6.5 7.8 132.7 Comparison Summary Table ?Stim Site NR Peak (ms) Norm Peak (ms) P-T Amp (?V) Site1 Site2 Delta-P (ms) Norm Delta (ms) Left Median/Radial Dig I Comparison (Digit 1 - 10cm) Median ? 2.6 <2.9 44.3 Median Radial 0.1 Radial ? 2.7 <2.8 10.3 EMG ?Side Muscle Nerve Root Ins Act Fibs Psw Amp Dur Poly Recrt Int Pat Comment Right 1stDorInt Ulnar C8-T1 Nml Nml Nml Nml Nml 0 Nml Complete Right FlexCarRad Median C6-7 Nml Nml Nml Nml Nml 0 Nml Complete Right Biceps Musculocut C5-6 Nml Nml Nml Nml Nml 0 Nml Complete Right Triceps Radial C6-7-8 Nml Nml Nml Nml Nml 0 Nml Complete Right Deltoid Axillary C5-6 Nml Nml Nml Nml Nml 0 Nml Complete Left 1stDorInt Ulnar C8-T1 Nml Nml Nml Nml Nml 0 Nml Complete Left FlexCarRad Median C6-7 Nml Nml Nml Nml Nml 0 Nml Complete Left Biceps Musculocut C5-6 Nml Nml Nml Nml Nml 0 Nml Complete Left Triceps Radial C6-7-8 Nml Nml Nml Nml Nml 0 Nml Complete Left Deltoid Axillary C5-6 Nml Nml Nml Nml Nml 0 Nml Complete Comparison Left/Right Comparison ?Stim Site L Lat (ms) R Lat (ms) L-R Lat (ms) L Amp (?V) R Amp (?V) L-R Amp (%) Median/Radial Dig I Comparison (Digit 1 - 10cm) Median 2.6 44.3 Radial 2.7 10.3 FINDINGS: All motor and sensory nerves tested showed normal latencies, amplitudes and conduction velocities. Concentric needle EMG was performed in selected muscles of the bilateral upper extremities. Study did not reveal signs of electric abnormalities as shown in the table above. IMPRESSION: 1. This is a normal study. 2. There is no electrodiagnostic evidence for median neuropathy, ulnar neuropathy, brachial plexopathy, or cervical radiculopathy. Thank you for your kind referral. Sarai Dooley MD, ROYER Board Certified, [place] Board [employer] and Rehabilitation (ABPMR) Board Certified, [place] Board of Electrodiagnostic Medicine (ABEM) CODIN [phone] x 2 MTDD
--- OUTSIDE RECORDS SUMMARY | 2024-08-26 14:08 | XMS_ITS | Encounter Summary ---
Author Organization [facility] Address [address] [place] [address] Care Team Providers Care House Decorator Name Role Phone Celina Mann DO Primary Care Pro vider Unavailable Mercedes Han MD Primary Care Provider [phone] Callum Hernandez DO Primary Care Provider Lopez Lu MD Primary Care Provider Buddy Foy NP Primary Care Provider Unavail able [facility], Pcp Primary Care Provider UnavailBuddy Stephen NP Primary Care Provider Unavail able Reason for Visit * Reason Comments E-prescribe Rx Request Encounter Details Date Type Department Care Team Description 05/14/2019 Refill Adult Medicine [address] [address] Celina Mann DO E-prescribe Rx Request Social History Tobacco Use Types Packs/Day [...] Telephone Encounter - Kaylyn Caraballo M.A. - 05/14/2019 10:44 AM EST Lab Results Component Value Date NA 141 07/28/2018 K 4.6 07/28/2018 CO2 26 07/28/2018 CL 107 07/28/2018 BUN 12 07/28/2018 CREAT 0.89 07/28/2018 GLU 114 07/28/2018 CA 9.2 07/28/2018 GFR > 60 07/28/2018 Last ov with Jo Ann 04/06/19 * Telephone Encounter - Arin Russ - 05/14/2019 8:56 AM EST Patient would like script to be: E-PRESCRIBED/FAXED TO PHARMACY WHEN WAS THE PATIENT'S LAST APPOINTMENT IN ADULT MEDICINE? 04/06/19 WHEN WAS THE LAST TIME THE PATIENT SAW THEIR PCP? 12/02/18 Does patient have an upcoming appointment? No-no answer, no voicemail documented x2 (Please verify telephone contact #'s at next phone call) (THE MEDICATION REQUESTED IS ON THE MED LIST ABOVE) All of the medications requested were on the CURRENT MEDS list Did you check the Pharmacy information above?: YES Patient wants: 30 -day supply Is this a mail order prescription request ? NO If the refill is from a FAXED refill request what is the RX # listed on the fax? N/A Patients current insurance carrier is: Payor: [employer] / Plan: ZurrbaO $20 [place] 1 / Product Type: HMO [id number] documented in this encounter Plan of Treatment Not on file documented as of this encounter Visit Diagnoses Not on filedocumented in this encounter Care Teams House Decorator Relationship Specialty Start Date End Date Celina Mann DO PCP - General Internal Medicine 03/21/16 11/23/20 Mercedes Han MD [address] [place], [place] [phone] PCP - General Internal Medicine 11/24/20 01/11/21 Callum Hernandez DO [address] [place] [address] PCP - General Internal Medicine 01/12/21 03/19/21 Lopez Brennan MD [address] [place], [place] [phone] PCP - General Internal Medicine 03/20/21 10/19/21 Buddy Shaw NP [address] [place] [address] PCP - General Family Practice 10/20/21 01/04/22 [facility], [place] [phone] PCP - General Internal Medicine 01/05/22 11/28/22 Buddy Shaw NP [address] [place] [address] PCP - General Family Practice 11/29/22 documented as of this encounter
--- OUTSIDE RECORDS SUMMARY | 2024-08-26 14:08 | XMS_ITS | Encounter Summary ---
Author Organization [facility] Address [address] [place] [address] Care Team Providers Care Landman Name Role Phone Celina Mann DO Primary Care Pro vider Unavailable Mercedes Han MD Primary Care Provider [phone] Callum Hernandez DO Primary Care Provider Lopez Lu MD Primary Care Provider Buddy Foy NP Primary Care Provider Unavail able [facility], Pcp Primary Care Provider UnavailBuddy Stephen NP Primary Care Provider Unavail able Reason for Visit * Reason Onset Date Comments Medication 2018 Encounter Details Date Type Department Care Team Description 2018 Refill Gastroenterology - [address] [address] Ignacio Mcleod MD Medication Social History Tobacco Use Types Packs/Day Years [...] encounter Miscellaneous Notes * Telephone Encounter - Ronna Hernandez - 2018 1:21 PM EDT Colonoscopy is on 04/15/18. Can you sign order? documented in this encounter Plan of Treatment Not on file documented as of this encounter Visit Diagnoses Not on filedocumented in this encounter Care Teams Landman Relationship Specialty Start Date End Date Celina Mann DO PCP - General Internal Medicine 03/21/16 11/23/20 Mercedes Han MD [address] [place] [address] PCP - General Internal Medicine 11/24/20 01/11/21 Callum Hernandez DO [address] [place], [place] [id number] PCP - General Internal Medicine 01/12/21 03/19/21 Lopez Brennan MD [address] [place], [place] [phone] PCP - General Internal Medicine 03/20/21 10/19/21 Buddy Shaw NP [address] [place] [address] PCP - General Family Practice 10/20/21 01/04/[address] [address] PCP - General Internal Medicine 01/05/22 11/28/22 Buddy Shaw NP [address] [place] [address] PCP - General Family Practice 11/29/22 documented as of this encounter
--- OUTSIDE RECORDS SUMMARY | 2024-08-26 14:08 | XMS_ITS | Encounter Summary ---
Author Organization [facility] Address [address] [place] [address] Care Team Providers Care Industrial Automation Engineer Name Role Phone Celina Mann DO Primary Care Pro vider Unavailable Mercedes Han MD Primary Care Provider [phone] Callum Hernandez DO Primary Care Provider Lopez Lu MD Primary Care Provider Buddy Foy NP Primary Care Provider Unavail [facility] Pcp Primary Care Provider Buddy Marlow NP Primary Care Provider Unavail able Encounter Details Date Type Department Care Team Description 07/29/2019 Director Of Cath Lab Report Medical Records [address] [place] [address] Maddy Iraheta NP Social History Tobacco Use [...] on filedocumented in this encounter Care Teams Industrial Automation Engineer Relationship Specialty Start Date End Date Celina Mann DO PCP - General Internal Medicine 03/21/16 11/23/20 Mercedes Han MD [address] [place] [address] PCP - General Internal Medicine 11/24/20 01/11/21 Callum Hernandez DO [address] [place] [address] PCP - General Internal Medicine 01/12/21 03/19/21 Lopez Brennan MD [address] [place] [address] PCP - General Internal Medicine 03/20/21 10/19/21 Buddy Shaw NP [address] [place] [address] PCP - General Family Practice 10/20/21 01/04/22 [facility], Pcp [address] [place] [address] PCP - General Internal Medicine 01/05/22 11/28/22 Buddy Shaw NP [address] [place] [address] PCP - General Family Practice 11/29/22 documented as of this encounter
--- OUTSIDE RECORDS SUMMARY | 2024-08-26 14:08 | XMS_ITS | Encounter Summary ---
Author Organization [facility] Address [address] [place] [address] Care Team Providers Care Curber Name Role Phone Luciano Skinner MD Primary Care Provider Katherine Blake Bourgeois MD Primary Care Provider Unavail able Celina Mann DO Primary Care Pro vider Unavailable Mercedes Han MD Primary Care Provider [phone] Celina Mann DO Primary Care Pro vider Unavailable Mercedes Han MD Primary Care Provider [phone] Callum Hernandez DO Primary Care Provider Katherine Lopez Aragon MD Primary Care Provider UnaBuddy Castellanos NP Primary Care Provider Unavail able [facility], Pcp Primary Care Provider UnavailBuddy Stephen NP Primary Care Provider Unavail able Encounter Details Date Type Department Care Team Description 10/01/2013 Hospital Medical Records [address] [place] [address] Nilton Kumar Social History Tobacco Use Types [...] on filedocumented in this encounter Care Teams Curber Relationship Specialty Start Date End Date Luciano Skinner MD PCP - General 12/13/10 05/10/14 Blake Rivera MD PCP - General Internal Medicine 05/11/14 03/03/15 Celina Mann, PCP - General Internal Medicine 03/04/15 02/06/16 Mercedes Han MD [address] [place] [address] PCP - General Internal Medicine 02/07/16 03/20/16 Celina Mann, PCP - General Internal Medicine 03/21/16 11/23/20 Mercedes Han MD [address] [place] [address] PCP - General Internal Medicine 11/24/20 01/11/21 Callum Hernandez DO [address] [place] [address] PCP - General Internal Medicine 01/12/21 03/19/21 Lopez Brennan MD [address] [place] [address] PCP - General Internal Medicine 03/20/21 10/19/21 Buddy Shaw NP [address] [place] [address] PCP - General Family Practice 10/20/21 01/04/22 [facility], [address] [address] PCP - General Internal Medicine 01/05/22 11/28/22 Buddy Shaw NP [address] [place] [address] PCP - General Family Practice 11/29/22 documented as of this encounter
--- OUTSIDE RECORDS SUMMARY | 2024-08-26 14:08 | XMS_ITS | Encounter Summary ---
Author Organization [facility] Address [address] [place] [address] Care Team Providers Care Marketing Professor Name Role Phone Celina Mann DO Primary Care Pro vider Unavailable Mercedes Han MD Primary Care Provider [phone] Callum Hernandez DO Primary Care Provider Lopez Lu MD Primary Care Provider Buddy Foy NP Primary Care Provider Unavail able [facility], Pcp Primary Care Provider UnavailBuddy Stephen NP Primary Care Provider Unavail able Reason for Visit * Reason Onset Date Comments REFERRAL 03/15/2018 Encounter Details Date Type Department Care Team Description 03/15/2018 Telephone Gastroenterology - [address] [address] Ignacio Mcleod MD REFERRAL Social History Tobacco [...] filedocumented in this encounter Care Teams Marketing Professor Relationship Specialty Start Date End Date Celina aMnn DO PCP - General Internal Medicine 03/21/16 11/23/20 Mercedes Han MD [address] [place] [address] PCP - General Internal Medicine 11/24/20 01/11/21 Callum Hernandez DO [address] [place] [address] PCP - General Internal Medicine 01/12/21 03/19/21 Lopez Brennan MD [address] [place] [address] PCP - General Internal Medicine 03/20/21 10/19/21 Buddy Shaw NP [address] [place] [address] PCP - General Family Practice 10/20/21 01/04/22 [facility], [place] [phone] PCP - General Internal Medicine 01/05/22 11/28/22 Buddy Shaw NP [address] [place] [address] PCP - General Family Practice 11/29/22 documented as of this encounter
--- OUTSIDE RECORDS SUMMARY | 2024-08-26 14:08 | XMS_ITS | Encounter Summary ---
Author Organization [facility] Address [address] [place] [address] Care Team Providers Care Retail Pharmacy Technician Name Role Phone Celina Mann DO Primary Care Pro vider Unavailable Mercedes Han MD Primary Care Provider [phone] Callum Hernandez DO Primary Care Provider Lopez Lu MD Primary Care Provider Buddy Foy NP Primary Care Provider Unavail able [facility], Pcp Primary Care Provider Buddy Marlow NP Primary Care Provider Unavail able Reason for Referral * Non FARAZ (Routine) - Unable to reach/declined Specialty Diagnoses / Procedures Referred By Kailey dominguez Referred To Contact Podiatry Procedures REFERRAL TO PODIATRY (IN NETWORK) Janet Medina PA-C [address] [place] [address] [address] [address] Referral ID Status Reason Start Date Expiration Date V isits Requested Visits Authorized [id number] 1 Unable to reach/decli nathaly 12/23/2018 1 1 Encounter Details Date Type Department Care Team Description 12/19/2018 Telephone Adult Medicine West [address] [address] Janet Medina PA-C Social History Tobacco Use [...] Thank you Lea Villanueva Orthopedic Referrals Navigator [facility] [place] [phone] or ext [phone] documented in this encounter Plan of Treatment Not on file documented as of this encounter Visit Diagnoses Not on filedocumented in this encounter Care Teams Retail Pharmacy Technician Relationship Specialty Start Date End Date Celina Mann DO PCP - General Internal Medicine 03/21/16 11/23/20 Mercedes Han MD [address] [place] [address] PCP - General Internal Medicine 11/24/20 01/11/21 Callum Hernandez DO [address] [place] [address] PCP - General Internal Medicine 01/12/21 03/19/21 Lopez Brennan MD [address] [place] [address] PCP - General Internal Medicine 03/20/21 10/19/21 Buddy Shaw NP [address] [place] [address] PCP - General Family Practice 10/20/21 01/04/22 [facility], Pcp [address] [place] [address] PCP - General Internal Medicine 01/05/22 11/28/22 Buddy Shaw NP [facility] [place] [address] PCP - General Family Practice 11/29/22 documented as of this encounter
--- OUTSIDE RECORDS SUMMARY | 2024-08-26 14:08 | XMS_ITS | Encounter Summary ---
Author Organization [facility] Address [address] [place] [address] Care Team Providers Care Corporate Buyer Name Role Phone Celina Mann DO Primary Care Pro vider Unavailable Mercedes Han MD Primary Care Provider [phone] Callum Hernandez DO Primary Care Provider Lopez Lu MD Primary Care Provider Buddy Foy NP Primary Care Provider Unavail able [facility], Pcp Primary Care Provider UnavailBuddy Stephen NP Primary Care Provider Unavail able Reason for Visit * Reason Onset Date Comments personal 04/20/2019 Encounter Details Date Type Department Care Team Description 04/20/2019 Telephone Adult [address] [address] Celina Mann DO personal Social History Tobacco Use Types Packs/Day Years [...] Telephone Encounter - Tete Ma R.N. - 04/20/2019 3:42 PM EST Pt called the pain management as directed in the letter she received and was told that her insurance will not cover a visit there . Please advise * Telephone Encounter - Danica John - 04/20/2019 3:28 PM EST Patient is requesting a call back from Tete. Patient states this is in regard to ongoing issues that she has helped me with No other info given. documented in this encounter Plan of Treatment Not on file documented as of this encounter Visit Diagnoses Not on filedocumented in this encounter Care Teams Corporate Buyer Relationship Specialty Start Date End Date Celina Mann DO PCP - General Internal Medicine 03/21/16 11/23/20 Mercedes Han MD [address] [place] [address] PCP - General Internal Medicine 11/24/20 01/11/21 Callum Hernandez DO [address] [place] [address] PCP - General Internal Medicine 01/12/21 03/19/21 Lopez Brennan MD [address] [place] [address] PCP - General Internal Medicine 03/20/21 10/19/21 Buddy Shaw NP [address] [place] [address] PCP - General Family Practice 10/20/21 01/04/22 [facility], [address] [address] PCP - General Internal Medicine 01/05/22 11/28/22 Buddy Shaw NP [address] [place] [address] PCP - General Family Practice 11/29/22 documented as of this encounter
--- OUTSIDE RECORDS SUMMARY | 2024-08-26 14:08 | XMS_ITS | Encounter Summary ---
Author Organization [facility] [facility] Address [address] [place] [address] Care Team Providers Care Acid Splicer Name Role Phone Celina Mann DO Primary Care Pro vider Unavailable Mercedes Han MD Primary Care Provider [phone] Callum Hernandez DO Primary Care Provider Lopez Lu MD Primary Care Provider Buddy Foy NP Primary Care Provider Unavail [facility] Pcp Primary Care Provider Buddy Marlow NP Primary Care Provider Unavail [facility] Encounter Details Date Type Department Care Team Description 05/15/2017 Stitch Marker Report Medical Records [address] [place] [address] Fletcher Holliday MD Social History Tobacco Use Types Packs/Day [...] on filedocumented in this encounter Care Teams Acid Splicer Relationship Specialty Start Date End Date Celina Mann DO PCP - General Internal Medicine 03/21/16 11/23/20 Mercedes Han MD [address] [place] [phone] PCP - General Internal Medicine 11/24/20 01/11/21 Callum Hernandez DO [address] [place] [address] PCP - General Internal Medicine 01/12/21 03/19/21 Lopez Brennan MD [address] [place] [address] PCP - General Internal Medicine 03/20/21 10/19/21 Buddy Shaw NP [address] [place] [address] PCP - General Family Practice 10/20/21 01/04/22 [facility], Pcp [address] [place] [address] PCP - General Internal Medicine 01/05/22 11/28/22 Buddy Shaw NP [address] [place] [phone] PCP - General Family Practice 11/29/22 documented as of this encounter
--- OUTSIDE RECORDS SUMMARY | 2024-08-26 14:08 | XMS_ITS | Encounter Summary ---
Author Organization [facility] Address [address] [place] [address] Care Team Providers Care Wood Pile Driver Operator Name Role Phone Celina Mann DO Primary Care Pro vider Unavailable Mercedes Han MD Primary Care Provider [phone] Callum Hernandez DO Primary Care Provider Lopez Lu MD Primary Care Provider Buddy Foy NP Primary Care Provider Unavail able [facility], Pcp Primary Care Provider UnavailBuddy Stephen NP Primary Care Provider Unavail able Reason for Visit * Reason Onset Date Comments skin problems 10/05/2019 Encounter Details Date Type Department Care Team Description 10/05/2019 Pt. Non Urgent Medic al Question Adult Medicine [address] [address] Celina Mann DO Social History Tobacco Use [...] Telephone Encounter - Kaylyn Caraballo M.A. - 10/05/2019 2:28 PM EDTFrom: Nereida Goddard To: Celina Ulloa DO Sent: 10/05/2019 2:20 PM EDT Subject: Burn with 3 tiny blisters. Also want to add three days also I developed a run burn on lower back.with blisters..very painful. Have been using triple antibiotic bacterial cream and ice..blisters are gone and much smaller now. documented in this encounter Plan of Treatment Not on file documented as of this encounter Visit Diagnoses Not on filedocumented in this encounter Care Teams Wood Pile Driver Operator Relationship Specialty Start Date End Date Celina Mann DO PCP - General Internal Medicine 03/21/16 11/23/20 Mercedes Han MD [address] [place] [address] PCP - General Internal Medicine 11/24/20 01/11/21 Callum Hernandez DO [address] [place], [place] [phone] PCP - General Internal Medicine 01/12/21 03/19/21 Lopez Brennan MD [address] [place] [address] PCP - General Internal Medicine 03/20/21 10/19/21 Buddy Shaw NP [address] [place], [place] [phone] PCP - General Family Practice 10/20/21 01/04/[address] [address] PCP - General Internal Medicine 01/05/22 11/28/22 Buddy Shaw NP [address] [place], [place] [phone] PCP - General Family Practice 11/29/22 documented as of this encounter
--- OUTSIDE RECORDS SUMMARY | 2024-08-26 14:08 | XMS_ITS | Encounter Summary ---
Author Organization [facility] Address [address] [place] [address] Care Team Providers Care Last Model Department Supervisor Name Role Phone Celina Mann DO Primary Care Pro vider Unavailable Mercedes Han MD Primary Care Provider [phone] Callum Hernandez DO Primary Care Provider Lopez Lu MD Primary Care Provider Buddy Foy NP Primary Care Provider Unavail able [facility] Pcp Primary Care Provider UnavailBuddy Stephen NP Primary Care Provider Unavail able Reason for Visit * Reason Comments E-prescribe Rx Request Encounter Details Date Type Department Care Team Description 03/21/2019 Refill Adult Medicine [address] [address] Sophia Cervantes NP E-prescribe Rx Request Social History Tobacco Use [...] encounter Miscellaneous Notes * Telephone Encounter - Cuca Coronado - 03/23/2019 8:09 AM EDT Patient would like script to be: E-PRESCRIBED/FAXED TO PHARMACY WHEN WAS THE PATIENT'S LAST APPOINTMENT IN ADULT MEDICINE? 12/18/18 WHEN WAS THE LAST TIME THE PATIENT SAW THEIR PCP? 12/02/18 Does patient have an upcoming appointment? Patient was sent a My Chart request to set up an appointment as they are due. (THE MEDICATION REQUESTED IS ON THE MED [...] N/A Patients current insurance carrier is: Payor: [employer] / Plan: [employer] $20 [place] 1 / Product Type: VivactaO [id number] documented in this encounter Plan of Treatment Not on file documented as of this encounter Visit Diagnoses Not on filedocumented in this encounter Care Teams Last Model Department Supervisor Relationship Specialty Start Date End Date Celina Mann DO PCP - General Internal Medicine 03/21/16 11/23/20 Mercedes Han MD [address] [place] [address] PCP - General Internal Medicine 11/24/20 01/11/21 Callum Hernandez DO [address] [place], [place] [phone] PCP - General Internal Medicine 01/12/21 03/19/21 Lopez Brennan MD [address] [place] [address] PCP - General Internal Medicine 03/20/21 10/19/21 Buddy Shaw NP [address] [place] [address] PCP - General Family Practice 10/20/21 01/04/22 [facility] [address] [place] [address] PCP - General Internal Medicine 01/05/22 11/28/22 Buddy Shaw NP [address] [place] [address] PCP - General Family Practice 11/29/22 documented as of this encounter
--- OUTSIDE RECORDS SUMMARY | 2024-08-26 14:08 | XMS_ITS | Encounter Summary ---
Author Organization [facility] Address [address] [place] [address] Care Team Providers Care Lumber Sales Supervisor Name Role Phone Celina Mann DO Primary Care Pro vider Unavailable Mercedes Han MD Primary Care Provider [phone] Callum Hernandez DO Primary Care Provider Lopez Lu MD Primary Care Provider Buddy Foy NP Primary Care Provider Unavail [facility] Pcp Primary Care Provider Buddy Marlow NP Primary Care Provider Unavail able Encounter Details Date Type Department Care Team Description 06/21/2017 Portable Canteen Operator Report Medical Records [address] [place] [address] Marko Ham I., PH.D Social History Tobacco [...] on filedocumented in this encounter Care Teams Lumber Sales Supervisor Relationship Specialty Start Date End Date Celina Mann DO PCP - General Internal Medicine 03/21/16 11/23/20 Mercedes Han MD [address] [place] [address] PCP - General Internal Medicine 11/24/20 01/11/21 Callum Hernandez DO [address] [place] [address] PCP - General Internal Medicine 01/12/21 03/19/21 Lopez Brennan MD [address] [place] [address] PCP - General Internal Medicine 03/20/21 10/19/21 Buddy Shaw NP [address] [place] [address] PCP - General Family Practice 10/20/21 01/04/22 [facility], Pcp [address] [place] [address] PCP - General Internal Medicine 01/05/22 11/28/22 Buddy Shaw NP [address] [place] [address] PCP - General Family Practice 11/29/22 documented as of this encounter
--- OUTSIDE RECORDS SUMMARY | 2024-08-26 14:08 | XMS_ITS | Encounter Summary ---
Author Organization [facility] Address [address] [place] [address] Care Team Providers Care Shampoo Person Name Role Phone Celina Mann DO Primary Care Pro vider Unavailable Mercedes Han MD Primary Care Provider [phone] Callum Hernandez DO Primary Care Provider Lopez Lu MD Primary Care Provider Buddy Foy NP Primary Care Provider [facility] Pcp Primary Care Provider Buddy Marlow NP Primary Care Provider Unavail [facility] Encounter Details Date Type Department Care Team Description 03/02/2020 Restaurant Crew Report Medical Records [address] [place] [address] Raul German Social History Tobacco Use Types [...] on filedocumented in this encounter Care Teams Shampoo Person Relationship Specialty Start Date End Date Celina Mann DO PCP - General Internal Medicine 03/21/16 11/23/20 Mercedes Han MD [address] [place] [address] PCP - General Internal Medicine 11/24/20 01/11/21 Callum Hernandez DO [address] [place] [address] PCP - General Internal Medicine 01/12/21 03/19/21 Lopez Brennan MD [address] [place] [address] PCP - General Internal Medicine 03/20/21 10/19/21 Buddy Shaw NP [address] [place] [address] PCP - General Family Practice 10/20/21 01/04/22 [facility], Pcp [address] [place] [address] PCP - General Internal Medicine 01/05/22 11/28/22 Buddy Shaw NP [address] [place] [address] PCP - General Family Practice 11/29/22 documented as of this encounter
--- OUTSIDE RECORDS SUMMARY | 2024-08-26 14:08 | XMS_ITS | Encounter Summary ---
Author Organization [facility] Address [address] [place] [address] Care Team Providers Care Universal Grinder Set Up Operator Name Role Phone Celina Mann DO Primary Care Pro vider Unavailable Mercedes Han MD Primary Care Provider [phone] Callum Hernandez DO Primary Care Provider Lopez Lu MD Primary Care Provider Buddy Foy NP Primary Care Provider Unavail able [facility], Pcp Primary Care Provider Buddy Marlow NP Primary Care Provider Unavail able Reason for Visit * Reason Onset Date Comments Provider Call Back 02/10/2018 APPOINTMENT 02/10/2018 1st attempt APPOINTMENT 02/10/2018 2nd attempt APPOINTMENT 02/10/2018 3rd attempt Encounter Details Date Type Department Care Team Description 02/10/2018 Telephone Gastroenterology - [address] [address] Ignacio Mcleod MD Provider Call Back; APPOINTMENT (1st attempt); APPOINTMENT (2nd attempt); APPOINTMENT (3rd attempt) Social History Tobacco Use Types Packs/Day Years [...] * Telephone Encounter - Ronna Hernandez - 02/19/2018 1:39 PM EDT 3rd attempt to contact patient. No response from patient. Letter mailed out to call the office. * Telephone Encounter - Ronna Hernandez - 02/17/2018 9:11 AM EDT 2nd attempt to contact patient. Left patient message to call the office. Patient needs a colonoscopy with Dr Mcleod. * Telephone Encounter - Ronna Hernandez - 02/14/2018 9:04 AM EDT 1st attempt to schedule patient. Left patient message to call the office. Patient needs to schedule a colonoscopy with Dr Mcleod. * Telephone Encounter - Ignacio Mcleod MD - 02/13/2018 4:53 PM EDT I spoke with her about this. She stated that she forgot to stay on a clear liquid diet and ate solid food the day before. I explained that we can give the colonoscopy another go or she could just do the stool tests instead. She would like to try the colonoscopy again so we will schedule her for this. * Telephone Encounter - Ignacio Mcleod MD - 02/12/2018 7:18 PM EDT No answer, no VM. * Telephone Encounter - Ronna Hernandez - 02/10/2018 9:38 AM EDT Patient is aware Dr Mcleod is not in the office today. Patient had an incomplete colonoscopy on 01/23/18. Dr Mcleod stated that he would discuss the situation with her and formulate a plan. Patient requesting a call back Saturday after 12:00. documented in this encounter Plan of Treatment Not on file documented as of this encounter Visit Diagnoses Not on filedocumented in this encounter Care Teams Universal Grinder Set Up Operator Relationship Specialty Start Date End Date Celina Mann DO PCP - General Internal Medicine 03/21/16 11/23/20 Mercedes Han MD [address] [place] [address] PCP - General Internal Medicine 11/24/20 01/11/21 Callum Hernandez DO [address] [place] [address] PCP - General Internal Medicine 01/12/21 03/19/21 Lopez Brennan MD [address] [place], [place] [id number] PCP - General Internal Medicine 03/20/21 10/19/21 Buddy Shaw NP [address] [place] [address] PCP - General Family Practice 10/20/21 01/04/22 [place] [address] PCP - General Internal Medicine 01/05/22 11/28/22 Buddy Shaw NP [address] [place] [address] PCP - General Family Practice 11/29/22 documented as of this encounter
--- OUTSIDE RECORDS SUMMARY | 2024-08-26 14:08 | XMS_ITS | Encounter Summary ---
Author Organization [facility] Address [address] [place] [address] Care Team Providers Care Director Industrial Relations Name Role Phone Luciano Skinner MD Primary Care Provider Katherine Blake Bourgeois MD Primary Care Provider Unavail able Celina Mann DO Primary Care Pro vider Unavailable Mercedes Han MD Primary Care Provider [phone] Celina Mann DO Primary Care Pro vider Unavailable Mercedes Han MD Primary Care Provider [phone] Callum Hernandez DO Primary Care Provider Katherine Lopez Aragon MD Primary Care Provider UnaBuddy Castellanos NP Primary Care Provider Unavail able [facility], Pcp Primary Care Provider UnavailBuddy Stephen NP Primary Care Provider Unavail able Encounter Details Date Type Department Care Team Description 09/07/2013 Metal Work Duct Installer Report Medical Records [address] [place] [address] Nilton Kumar Social History Tobacco Use Types [...] on filedocumented in this encounter Care Teams Director Industrial Relations Relationship Specialty Start Date End Date Luciano Skinner MD PCP - General 12/13/10 05/10/14 Blake Rivera MD PCP - General Internal Medicine 05/11/14 03/03/15 Celina Mann, DO PCP - General Internal Medicine 03/04/15 02/06/16 Mercedes Han MD [address] [place] [address] PCP - General Internal Medicine 02/07/16 03/20/16 Celian Mann, PCP - General Internal Medicine 03/21/16 11/23/20 Mercedes Han MD [address] [place] [address] PCP - General Internal Medicine 11/24/20 01/11/21 Callum Hernandez DO [address] [place] [address] PCP - General Internal Medicine 01/12/21 03/19/21 Lopez Brennan MD [address] [place] [address] PCP - General Internal Medicine 03/20/21 10/19/21 Buddy Shaw NP [address] [place] [address] PCP - General Family Practice 10/20/21 01/04/22 [facility], Pcp [address] [place] [address] PCP - General Internal Medicine 01/05/22 11/28/22 Buddy Shaw NP [address] [place] [address] PCP - General Family Practice 11/29/22 documented as of this encounter
--- OUTSIDE RECORDS SUMMARY | 2024-08-26 14:08 | XMS_ITS | Encounter Summary ---
Author Organization [facility] Address [address] [place] [address] Care Team Providers Care Bleach Range Operator Name Role Phone Celina Mann DO Primary Care Pro vider Unavailable Mercedes Han MD Primary Care Provider [phone] Callum Hernandez DO Primary Care Provider Lopez Lu MD Primary Care Provider Buddy Foy NP Primary Care Provider Unavail able [facility], Pcp Primary Care Provider UnavailBuddy Stephen NP Primary Care Provider Unavail able Reason for Visit * Reason Comments E-prescribe Rx Request Encounter Details Date Type Department Care Team Description 10/07/2017 Refill Adult Medicine [address] [address] Celina Mann DO E-prescribe Rx Request Social [...] encounter Miscellaneous Notes * Telephone Encounter - Teodora Lew - 10/07/2017 2:55 PM EDT Patient would like script to be: E-PRESCRIBED/FAXED TO PHARMACY WHEN WAS THE PATIENT'S LAST APPOINTMENT IN ADULT MEDICINE? 09/11/17 WHEN WAS THE LAST TIME THE PATIENT SAW THEIR PCP? 03/04/17 Does patient have an upcoming appointment? No-[facility] to refill request. Appt due (THE MEDICATION REQUESTED IS ON THE MED LIST ABOVE) All of the medications requested were on the CURRENT MEDS list Did you check the Pharmacy information above?: YES Patient wants: 30 -day supply Is this a mail order prescription request ? NO Patients current insurance carrier is: Payor: [employer] / Plan: My[employer] $20 [employer]HELLE[employer]hami [id number] / Product Type: fflapO [id number] documented in this encounter Plan of Treatment Not on file documented as of this encounter Visit Diagnoses Not on filedocumented in this encounter Care Teams Bleach Range Operator Relationship Specialty Start Date End Date Celina Mann DO PCP - General Internal Medicine 03/21/16 11/23/20 Mercedes Han MD [address] [place] [address] PCP - General Internal Medicine 11/24/20 01/11/21 Callum Hernandez DO [address] [place] [address] PCP - General Internal Medicine 01/12/21 03/19/21 Lopez Brennan MD [address] [place] [address] PCP - General Internal Medicine 03/20/21 10/19/21 Buddy Shaw NP [address] [place] [address] PCP - General Family Practice 10/20/21 01/04/22 Jan Infante [address] [place] [address] PCP - General Internal Medicine 01/05/22 11/28/22 Buddy Shaw NP [address] [place] [address] PCP - General Family Practice 11/29/22 documented as of this encounter
--- OUTSIDE RECORDS SUMMARY | 2024-08-26 14:08 | XMS_ITS | Encounter Summary ---
Author Organization [facility] Address [address] [place] [address] Care Team Providers Care Ski Patrol Name Role Phone Celina Mann DO Primary Care Pro vider Unavailable Mercedes Han MD Primary Care Provider [phone] Callum Hernandez DO Primary Care Provider Lopez Lu MD Primary Care Provider Buddy Foy NP Primary Care Provider Unavail [facility] Pcp Primary Care Provider Buddy Marlow NP Primary Care Provider Unavail able Encounter Details Date Type Department Care Team Description 03/18/2017 Release of Information Medical Records [address] [place] [id number] Abstract, Provider Social History Tobacco Use Types [...] on filedocumented in this encounter Care Teams Ski Patrol Relationship Specialty Start Date End Date Celina Mann DO PCP - General Internal Medicine 03/21/16 11/23/20 Mercedes Han MD [address] [place] [address] PCP - General Internal Medicine 11/24/20 01/11/21 Callum Hernandez DO [address] [place] [address] PCP - General Internal Medicine 01/12/21 03/19/21 Lopez Brennan MD [address] [place] [address] PCP - General Internal Medicine 03/20/21 10/19/21 Buddy Shaw NP [address] [place] [address] PCP - General Family Practice 10/20/21 01/04/22 [facility], Pcp [address] [place] [address] PCP - General Internal Medicine 01/05/22 11/28/22 Buddy Shaw NP [address] [place] [address] PCP - General Family Practice 11/29/22 documented as of this encounter
--- OUTSIDE RECORDS SUMMARY | 2024-08-26 14:08 | XMS_ITS | Encounter Summary ---
Author Organization [employer] [facility] Address [address] [place] [address] Care Team Providers Care Customer Experience Manager Name Role Phone Celina Mann DO Primary Care Pro vider Unavailable Mercedes Han MD Primary Care Provider [phone] Callum Hernandez DO Primary Care Provider Lopez Lu MD Primary Care Provider Buddy Foy NP Primary Care Provider Unavail able [facility], Pcp Primary Care Provider Buddy Marlow NP Primary Care Provider Unavail able Reason for Visit * Reason Onset Date Comments Call From Hospital 02/28/2017 Encounter Details Date Type Department Care Team Description 02/28/2017 Telephone Adult Medicine [address] [address] Celina Mann DO Call From Hospital Social [...] pt she is on her way to [facility], * Telephone Encounter - Darlenemanas Pineda - 02/28/2017 11:27 AM EDT Alisha a Public Health nurse in [place] gave following info Symptoms patient is presenting: low leg swelling ,tingling in hands 3lb weight gain since last night per alisha. Alisha states she instructing pt to go to [facility] Pt can be reached @ [phone] If pain or injury related was it due to an accident at work or from a motor vehicle accident? no Date of accident/Injury: NA How long has patient had these symptoms?: last night PCP: Celina Fong Payor: [employer] [place] / Plan: BoombotixO $25 [place] [id number] / Product Type: HMO [id number] documented in this encounter Plan of Treatment Not on file documented as of this encounter Visit Diagnoses Not on filedocumented in this encounter Care Teams Customer Experience Manager Relationship Specialty Start Date End Date Celina Mann DO PCP - General Internal Medicine 03/21/16 11/23/20 Mercedes Han MD [address] [place] [address] PCP - General Internal Medicine 11/24/20 01/11/21 Callum Hernandez DO [address] [place] [address] PCP - General Internal Medicine 01/12/21 03/19/21 Lopez Brennan MD [address] [place] [address] PCP - General Internal Medicine 03/20/21 10/19/21 Buddy Shaw NP [address] [place] [address] PCP - General Family Practice 10/20/21 01/04/22 [facility], Pcp [address] [place] [address] PCP - General Internal Medicine 01/05/22 11/28/22 Buddy Shaw NP [address] [place], [place] [phone] PCP - General Family Practice 11/29/22 documented as of this encounter
--- OUTSIDE RECORDS SUMMARY | 2024-08-26 14:08 | XMS_ITS | Encounter Summary ---
Author Organization [facility] Address [address] [place] [address] Care Team Providers Care Manager File Name Role Phone Luciano Skinner MD Primary Care Provider Katherine Blake Bourgeois MD Primary Care Provider Unavail able Celina Mann DO Primary Care Pro vider Unavailable Mercedes Han MD Primary Care Provider [phone] Celina Mann DO Primary Care Pro vider Unavailable Mercedes Han MD Primary Care Provider [phone] Callum Hernandez DO Primary Care Provider Katherine Lopez Aragon MD Primary Care Provider UnaBuddy Castellanos NP Primary Care Provider Unavail able [facility], [facility], Pcp Primary Care Provider UnavailBuddy Stephen NP Primary Care Provider Unavail able Encounter Details Date Type Department Care Team Description 06/15/2011 Telephone Adult [address] [address] Luciano Skinner MD Social History Tobacco Use [...] filedocumented in this encounter Care Teams Manager File Relationship Specialty Start Date End Date Luciano Skinner MD PCP - General 12/13/10 05/10/14 Blake Rivera MD PCP - General Internal Medicine 05/11/14 03/03/15 Celina Mann DO PCP - General Internal Medicine 03/04/15 02/06/16 Mercedes Han MD [address] [place], [place] [phone] PCP - General Internal Medicine 02/07/16 03/20/16 Celina Mann, PCP - General Internal Medicine 03/21/16 11/23/20 Mercedes Hna MD [address] [place] [address] PCP - General Internal Medicine 11/24/20 01/11/21 Callum Hernandez DO [address] [place] [address] PCP - General Internal Medicine 01/12/21 03/19/21 Lopez Brennan MD [address] [place] [address] PCP - General Internal Medicine 03/20/21 10/19/21 Buddy Shaw NP [address] [place] [address] PCP - General Family Practice 10/20/21 01/04/22 [facility], [facility], [address] [address] PCP - General Internal Medicine 01/05/22 11/28/22 Buddy Shaw NP [address] [place] [address] PCP - General Family Practice 11/29/22 documented as of this encounter
--- OUTSIDE RECORDS SUMMARY | 2024-08-26 14:08 | XMS_ITS | Encounter Summary ---
Author Organization [facility] Address [address] [place] [address] Care Team Providers Care Rawhide Trimmer Name Role Phone Luciano Skinner MD Primary Care Provider Katherine Blake Bourgeois MD Primary Care Provider Unavail able Celina Mann DO Primary Care Pro vider Unavailable Mercedes Han MD Primary Care Provider [phone] Celina Mann DO Primary Care Pro vider Unavailable Mercedes Han MD Primary Care Provider [phone] Callum Hernandez DO Primary Care Provider Katherine Lopez Aragon MD Primary Care Provider UnaBuddy Castellanos NP Primary Care Provider Unavail able [facility], Pcp Primary Care Provider UnavailBuddy Stephen NP Primary Care Provider Unavail able Encounter Details Date Type Department Care Team Description 09/07/2013 Nursing Faculty Report Medical Records [address] [place] [address] Nilton Kumar Social History Tobacco Use Types [...] on filedocumented in this encounter Care Teams Rawhide Trimmer Relationship Specialty Start Date End Date Luciano Skinner MD PCP - General 12/13/10 05/10/14 Blake Rivera MD PCP - General Internal Medicine 05/11/14 03/03/15 Celina Mann, DO PCP - General Internal Medicine 03/04/15 02/06/16 Mercedes Han MD [address] [place] [address] PCP - General Internal Medicine 02/07/16 03/20/16 Celina Mann, PCP - General Internal Medicine 03/21/16 11/23/20 Mercedes Han MD [address] [place] [address] PCP - General Internal Medicine 11/24/20 01/11/21 Callum Hernandez DO [address] [place] [address] PCP - General Internal Medicine 01/12/21 03/19/21 Lopez Brennan MD [address] [place] [address] PCP - General Internal Medicine 03/20/21 10/19/21 Buddy Shaw NP [address] [place] [address] PCP - General Family Practice 10/20/21 01/04/22 [facility], Pcp [address] [place] [address] PCP - General Internal Medicine 01/05/22 11/28/22 Buddy Shaw NP [address] [place] [address] PCP - General Family Practice 11/29/22 documented as of this encounter
--- OUTSIDE RECORDS SUMMARY | 2024-08-26 14:08 | XMS_ITS | Encounter Summary ---
Author Organization [employer] [facility] Address [address] [place] [address] Care Team Providers Care Primary Class Teacher Name Role Phone Celina Mann DO Primary Care Pro vider Unavailable Mercedes Han MD Primary Care Provider [phone] Callum Hernandez DO Primary Care Provider Lopez Lu MD Primary Care Provider Buddy Foy NP Primary Care Provider [facility] Pcp Primary Care Provider Buddy Marlow NP Primary Care Provider Unavail [facility] Encounter Details Date Type Department Care Team Description 04/07/2020 Tire Curer Report Medical Records [address] [place] [address] Raul German Social History Tobacco Use Types [...] on filedocumented in this encounter Care Teams Primary Class Teacher Relationship Specialty Start Date End Date Celina Mann DO PCP - General Internal Medicine 03/21/16 11/23/20 Mercedes Han MD [address] [place] [address] PCP - General Internal Medicine 11/24/20 01/11/21 Callum Hernandez DO [address] [place] [address] PCP - General Internal Medicine 01/12/21 03/19/21 Lopez Brennan MD [address] [place] [address] PCP - General Internal Medicine 03/20/21 10/19/21 Buddy Shaw NP [address] [place] [address] PCP - General Family Practice 10/20/21 01/04/22 [facility], Pcp [address] [place] [address] PCP - General Internal Medicine 01/05/22 11/28/22 Buddy Shaw NP [address] [place] [address] PCP - General Family Practice 11/29/22 documented as of this encounter
--- OUTSIDE RECORDS SUMMARY | 2024-08-26 14:08 | XMS_ITS | Encounter Summary ---
Author Organization [facility] Address [address] [place] [address] Care Team Providers Care Regulatory Affairs Strategy Specialist Name Role Phone Celina Mann DO Primary Care Pro vider Unavailable Mercedes Han MD Primary Care Provider [phone] Callum Hernandez DO Primary Care Provider Lopez Lu MD Primary Care Provider Buddy Foy NP Primary Care Provider Unavail [facility] Pcp Primary Care Provider Buddy Marlow NP Primary Care Provider Unavail able Encounter Details Date Type Department Care Team Description 01/01/2020 Pt. Non Urgent Medic al Question Adult Medicine [address] [address] Celina Mann DO Social History Tobacco Use [...] 01/01/2020 11:11 AM EDTFrom: Nereida Goddard To: Ceilna Ulloa DO Sent: 01/01/2020 9:40 AM EDT Subject: Allergy Medication Why was my refill for allergy medication denied documented in this encounter Plan of Treatment Not on file documented as of this encounter Visit Diagnoses Not on filedocumented in this encounter Care Teams Regulatory Affairs Strategy Specialist Relationship Specialty Start Date End Date Celina Mann DO PCP - General Internal Medicine 03/21/16 11/23/20 Mercedes Han MD [address] [place] [address] PCP - General Internal Medicine 11/24/20 01/11/21 Callum Hernandez DO [address] [place] [address] PCP - General Internal Medicine 01/12/21 03/19/21 Lopez Brennan MD [address] [place] [address] PCP - General Internal Medicine 03/20/21 10/19/21 Buddy Shaw NP [address] [place] [address] PCP - General Family Practice 10/20/21 01/04/[address] [address] PCP - General Internal Medicine 01/05/22 11/28/22 Buddy Shaw NP [address] [place] [address] PCP - General Family Practice 11/29/22 documented as of this encounter
--- OUTSIDE RECORDS SUMMARY | 2024-08-26 14:08 | XMS_ITS | Clinical Summary ---
Author Organization [facility] Address [address] [place] [address] Care Team Providers Care Word Processing Supervisor Name Role Phone Buddy Shaw NP Primary Care Provider Unavail able Medications Medication Sig Dispensed Refills Start Date End Date Status MULTI-VITAMIN OR 1 tab daily 0 Active VITAMIN B-12 OR 1 tab daily 0 Active CALCIUM + D 600-200 MG-UNIT OR TABS 1 TABLET DAILY 0 Activ e CPAP Historical (HISTORICAL CPAP) Inhale into the lungs. J&L pressure 6-16 0 08/09/2015 Active Rupert-3 Fatty Acids (FISH OIL OR) Take by mouth daily. 0 Active Cholecalciferol (VITAMIN D3) 3000 UNITS Tab Take 1 Tab by mouth daily. 0 Active ibuprofen (ADVIL,MOTRIN) 800 MG tablet Take 1 Tab by mouth 3 times daily (with meals). 0 12/16/2019 Active Triamcinolone Acetonide (NASACORT ALLERGY 24HR) 55 MCG/ACT Aerosol 1 Marlow by Nasal route daily as needed (rhinitis or allergies). 1 Bottle 5 06/01/2020 Active Albuterol Sulfate (ProAir RespiClick) 108 (90 Base) MCG/ACT AEROSOL POWDER,BREATH ACTIVATED Inhale 2 Puffs into the lungs every 4 hours as needed (sob). 1 Each 0 01/12/2021 Active ziprasidone (Geodon) 80 MG capsule Take 1 capsule by mouth at bedtime for 30 days. 30 capsule 5 04/18/2021 Active ziprasidone (Geodon) 20 MG capsule Take 1 capsule by mouth 2 times daily as needed (anxiety) for up to 90 days. 60 capsule 5 04/18/2021 Active buPROPion (WELLBUTRIN XL) 300 MG 24 hr tablet Take 1 tablet by mouth every morning. 30 tablet 5 04/18/2021 Active duloxetine (CYMBALTA) 60 MG capsule Take 1 capsule by mouth daily (with breakfast) for 60 days. 30 capsule 5 04/18/2021 Active duloxetine (Cymbalta) 30 MG capsule Take 1 capsule by mouth daily for 60 days. 30 capsule 5 04/18/2021 Active lorazepam (ATIVAN) 1 MG tablet Take 0.5 Tablets by mouth daily as needed for Anxiety. 30 tablet 4 04/18/2021 Active omeprazole (PRILOSEC) 40 MG capsule Take 1 capsule by mouth daily. 90 capsule 0 05/01/2021 Active cetirizine (ZYRTEC) 10 MG tablet TAKE 1 TAB BY MOUTH DAILY NEEDED FOR ALLERGIES. 90 tablet 1 07/11/2021 Active atorvastatin (LIPITOR) 20 MG tablet TAKE 1 TABLET BY MOUTH EVERYDAY AT BEDTIME 90 tablet 0 08/04/2021 Active Active Problems Problem Noted Date Vitamin D deficiency 07/28/2018 History of difficult colonoscopy 018 Overview: 04/15/2018: Inadequate results with one day bowel prep. Needs a 2 day bowel prep. Needs monitored anesthesia care. See colonoscopy report. Gastroesophageal reflux disease with eso phagitis 02/10/2018 Foraminal stenosis of cervical region Osteoarthritis of cervical spine 018 Chronic frontal sinusitis 08/01/2017 Obesity (BMI 35.0-39.9 without comorbidi ty) 02/22/2017 Dyslipidemia 12/30/2015 Major depressive disorder, recurrent epi sode 12/19/2015 Obstructive sleep apnea AHI 7/REM AHI 17 04/26/2015 Overview: 11/11/2016 to 12/10/2016. CPAP@ 6-16/Average 8.7/Max 89.4. 40% compliant with using the machine for >4 hours/day. Average use is 3.45 hours a night with AHI 1.1. Mild cognitive impairment 02/04/2015 PSVT (paroxysmal supraventricular tachyc ardia) 11/13/2012 Agoraphobia with panic disorder 03/31/20 12 Incomplete emptying of bladder/ self cat h qid/ 03/15/2011 Uterine prolapse 06/30/2008 Actinic keratosis 06/16/2008 Overview: Actinic keratosis Family history of colonic polyps 008 Overview: Father with colonic polyps older than 60. Negative colonoscopy 01/28/2008, no colon cancer screening needed for 10 years. ALLERGIC RHINITIS, 04/20/2005 FIORDALIZA positive Resolved Problems Problem Noted Date Resolved Date Anxiety 07/31/2017 02/09/2020 Overweight 07/25/2016 03/04/2017 Memory difficulties 11/25/2014 02/04/2015 Major depressive disorder, single episode, mild 03/31/2012 12/19/2015 Tobacco use disorder 08/05/2007 03/10/2015 DEPRESSION 04/20/2005 04/06/2019 CINDY on CPAP 08/20/2016 Immunizations Name Administration Dates Next Due COVID-19 (Moderna) PT Reported 10/04/2021,2020 Influenza (> 6 Months) 03/04/2015,2012,02/14/2012, 012 Influenza Flu (PT Reported) 2021 Influenza Vaccine-quadrivale nt 4 Years Plus 02/10/2018,02/22/2017 Influenza vaccine high dose age 65 and over 01/22/2020 TD (STATE SUPPLIED FOR ADULT S AND CHILDREN) 04/26/1999 Tdap 03/20/2010 Family History Medical History Relation Name Comments Colon Polyps Father age > 60 CA Breast Negative Hx Relation Name Status Comments Brother Alive htn, hyperlipid emia Father (Age 81) dementia, colon polyps Mother Alive macular degener ation Social History Tobacco Use Types Packs/Day Years Used Date Smoking Tobacco: Light Smoker Cigarettes 0 25 Started: 1972 Smokeless Tobacco: Never Tobacco Cessation:Ready to Q uit: No; Counseling Given: No Comments:4 cigarettes daily Alcohol Use Standard Drinks/Week Comments Yes 0 (1 standard drink = 0.6 oz pur e alcohol) 3 drinks per yr Sex Assigned at Date Recorded Not on file Job Start Date Occupation Industry Not on file Not on file Not on file Last Filed Vital Signs Vital Sign Reading Time Taken Comments Blood Pressure 122/77 08/12/2020 2:25 PM EST Pulse 85 08/12/2020 2:25 PM EST Temperature 36.7 ??C (98 ??F) 12/28/2019 2:53 PM EDT Respiratory Rate 16 08/12/2020 2:25 PM EST Oxygen Saturation 97% 05/14/2019 7:38 AM EST Inhaled Oxygen Concentration - - Weight 95.6 kg (210 lb 12.8 oz) 08/12/2020 2:25 PM EST Height 165.1 cm (5' 5 ) 08/12/2020 2:25 PM EST Body Mass Index 35.08 08/12/2020 2:25 PM EST Plan of Treatment Health Maintenance Due Date Last Done Comments SHINGLES VACCINE (1 of 2) 2007 DTAP/TDAP/TD (2 - Td or Tdap) 03/20/2020 03/20/2010, 04/26/1999 BONE DENSITY SCREENING 2022 01/06/2016, 2010 PNEUMOCOCCAL VACCINE (1 - PCV) 2022 Lung Cancer Screening (Low D ose CT) 11/27/2022 11/27/2021, 11/19/2020, 11/16/2019, Additional history exists MAMMOGRAM 11/28/2022 11/28/2021, 09/01, 02/21/2019, Additional history exists COLON CANCER SCREENING 04/15/2023 8, 01/23/2018, 01/28/2008, Additional history exists TOBACCO CHECK/ADVISE 01/06/2024 01/05/2022, 10/10/2021, 08/04/2021, Additional history exists Covid-19 Vaccine (3 - 2022-2 4 season) 2024 10/04/2021, 07/25/2020 INFLUENZA (#1) 2024 2021, 08/06/2019, 02/10/2018, Additional history exists BMI CHECK/ADVISE 06/03/2024 08/12/2020, , 09/25/2019, Additional history exists CHOLESTEROL SCREENING 08/12/2025 08/12/2020 , 10/14/2019, 03/22/2018, Additional history exists HEPATITIS C SCREENING Completed 03/21/2013 Care Teams Word Processing Supervisor Relationship Specialty Start Date End Date Buddy Shaw NP PCP - General Family Practice 11/29/22
--- OUTSIDE RECORDS SUMMARY | 2024-08-26 14:08 | XMS_ITS | Encounter Summary ---
Author Organization [facility] Address [address] [place] [address] Care Team Providers Care Lead Cargo Mover Name Role Phone Celina Mann DO Primary Care Pro vider Unavailable Mercedes Han MD Primary Care Provider [phone] Callum Hernandez DO Primary Care Provider Lopez Lu MD Primary Care Provider Buddy Foy NP Primary Care Provider Unavail able [facility], Pcp Primary Care Provider Buddy Marlow NP Primary Care Provider Unavail able Encounter Details Date Type Department Care Team Description 03/03/2018 Pt. Non Urgent Medical Question Pulmonology - [place] [address] [place] [id number] Eula Norris FNP [address] [place] [address] Social History Tobacco Use Types Packs/Day Years [...] of me also I spoke to the clay pigeon loader and she said that there is really nothing available and that I should just keep trying everyday to see if there's a cancellation but in the meantime my headgear is all stretched out and I need new equipment I've reached out to a couple of different places that accept my insurance for equipmentbut they need my sleep apnea test from my lead javascript engineer documented in this encounter Plan of Treatment Not on file documented as of this encounter Visit Diagnoses Not on filedocumented in this encounter Care Teams Lead Cargo Mover Relationship Specialty Start Date End Date Celina Mann DO PCP - General Internal Medicine 03/21/16 11/23/20 Mercedes Han MD [address] [place] [address] PCP - General Internal Medicine 11/24/20 01/11/21 Callum Hernandez DO [address] [place] [address] PCP - General Internal Medicine 01/12/21 03/19/21 Lopez Brennan MD [address] [place] [address] PCP - General Internal Medicine 03/20/21 10/19/21 Buddy Shaw NP [address] [place], [place] [phone] PCP - General Family Practice 10/20/21 01/04/22 [facility], [place] [id number] PCP - General Internal Medicine 01/05/22 11/28/22 Buddy Shaw NP [address] [place] [address] PCP - General Family Practice 11/29/22 documented as of this encounter
--- OUTSIDE RECORDS SUMMARY | 2024-08-26 14:08 | XMS_ITS | Encounter Summary ---
Author Organization [facility] Address [address] [place] [address] Care Team Providers Care Radial Drill Press Operator Name Role Phone Celina Mann DO Primary Care Pro vider Unavailable Mercedes Han MD Primary Care Provider [phone] Callum Hernandez DO Primary Care Provider Lopez Lu MD Primary Care Provider Buddy Foy NP Primary Care Provider Unavail [facility] Pcp Primary Care Provider Buddy Marlow NP Primary Care Provider Unavail able Encounter Details Date Type Department Care Team Description 04/10/2019 Pt. Non Urgent Medic al Question Adult Medicine [address] [address] Celina Mann DO Social History Tobacco Use [...] on filedocumented in this encounter Care Teams Radial Drill Press Operator Relationship Specialty Start Date End Date Celina Mann DO PCP - General Internal Medicine 03/21/16 11/23/20 Mercedes Han MD [address] [place] [address] PCP - General Internal Medicine 11/24/20 01/11/21 Callum Hernandez DO [address] [place] [address] PCP - General Internal Medicine 01/12/21 03/19/21 Lopez Brennan MD [address] [place] [address] PCP - General Internal Medicine 03/20/21 10/19/21 Buddy Shaw NP [address] [place] [address] PCP - General Family Practice 10/20/21 01/04/22 [facility], Pcp [address] [place], [place] [phone] PCP - General Internal Medicine 01/05/22 11/28/22 Buddy Shaw NP [address] [place] [address] PCP - General Family Practice 11/29/22 documented as of this encounter
--- OUTSIDE RECORDS SUMMARY | 2024-08-26 14:09 | XMS_ITS | Encounter Summary ---
Author Organization [facility] Address [address] [place] [address] Care Team Providers Care Field Geologist Name Role Phone Celina Mann DO Primary Care Pro vider Unavailable Mercedes Han MD Primary Care Provider [phone] Celina Mann DO Primary Care Pro vider Unavailable Mercedes Han MD Primary Care Provider [phone] Callum Hernandez DO Primary Care Provider Lopez Lu MD Primary Care Provider Buddy Foy NP Primary Care Provider Unavail [facility] Primary Care Provider Buddy Marlow NP Primary Care Provider Unavail [facility] Encounter Details Date Type Department Care Team Description 06/30/2015 Unhairer Report Medical Records [address] [place] [address] He Vivas Social History Tobacco Use Types Packs/Day Years [...] on filedocumented in this encounter Care Teams Field Geologist Relationship Specialty Start Date End Date Celina Mann DO PCP - General Internal Medicine 03/04/15 02/06/16 Mercedes Han MD [address] [place] [address] PCP - General Internal Medicine 02/07/16 03/20/16 Celina Mann DO PCP - General Internal Medicine 03/21/16 11/23/20 Mercedes Han MD [address] [place] [address] PCP - General Internal Medicine 11/24/20 01/11/21 Callum Hernandez DO [address] [place] [address] PCP - General Internal Medicine 01/12/21 03/19/21 Lopez Brennan MD [address] [place], [place] [phone] PCP - General Internal Medicine 03/20/21 10/19/21 Buddy Shaw NP [address] [place] [address] PCP - General Family Practice 10/20/21 01/04/22 [facility], Pcp [address] [place] [address] PCP - General Internal Medicine 01/05/22 11/28/22 Buddy Shaw NP [address] [place] [address] PCP - General Family Practice 11/29/22 documented as of this encounter
--- OUTSIDE RECORDS SUMMARY | 2024-08-26 14:09 | XMS_ITS ---
Author Organization [facility] Address [address] [place] [address] Care Team Providers Care Market Analysis Director Name Role Phone Buddy Bolden Primary Care Provider Unav ailable Leandro Harvey Unavailable [phone] REASON FOR VISIT SD cx 1/3 Encounters Encounter Location Date Provider Diagnosis [facility] [address] [place] [address] 06/05/2024 Leandro Harvey Plan Of Treatment No Information Progress Notes * Nereida MCBRIDE ADOB:[birth year] (69 yo F)Acc No.[id number]:06/05/2024 Patient:?Nereida MCBRIDE :1955???Age:69 Y???Sex:Female Address:[address] [place], [address] * true * Date:? Generated for Printi sue/Anais/eTransmitting on:?08/26/2024 02:09 PM EDT
--- OUTSIDE RECORDS SUMMARY | 2024-08-26 14:09 | XMS_ITS | Encounter Summary ---
Author Organization [facility] Address [address] [place] [address] Care Team Providers Care Explosive Ordnance Technician Name Role Phone Celina Mann DO Primary Care Pro vider Unavailable Mercedes Han MD Primary Care Provider [phone] Callum Hernandez DO Primary Care Provider Lopez Lu MD Primary Care Provider Buddy Foy NP Primary Care Provider Unavail [facility] Pcp Primary Care Provider Buddy Marlow NP Primary Care Provider Unavail [facility] Encounter Details Date Type Department Care Team Description 11/16/2019 Practice Administrator Report Medical Records [address] [place] [address] Abstract, Provider Social History Tobacco Use Types [...] on filedocumented in this encounter Care Teams Explosive Ordnance Technician Relationship Specialty Start Date End Date Celina Mann DO PCP - General Internal Medicine 03/21/16 11/23/20 Mercedes Han MD [address] [place] [address] [id number] PCP - General Internal Medicine 11/24/20 01/11/21 Callum Hernandez DO [address] [place] [address] PCP - General Internal Medicine 01/12/21 03/19/21 Lopez Brennan MD [address] [place] [address] PCP - General Internal Medicine 03/20/21 10/19/21 Buddy Shaw NP [address] [place], [place] [phone] PCP - General Family Practice 10/20/21 01/04/22 [facility], Pcp [address] [place] [address] PCP - General Internal Medicine 01/05/22 11/28/22 Buddy Shaw NP [address] [place], [place] [phone] PCP - General Family Practice 11/29/22 documented as of this encounter
--- OUTSIDE RECORDS SUMMARY | 2024-08-26 14:09 | XMS_ITS | Encounter Summary ---
Author Organization [facility] Address [address] [place] [address] Care Team Providers Care Middle School Volleyball Coach Name Role Phone Celina Mann DO Primary Care Pro vider Unavailable Mercedes Han MD Primary Care Provider [phone] Callum Hernandez DO Primary Care Provider Lopez Lu MD Primary Care Provider Buddy Foy NP Primary Care Provider [facility] Pcp Primary Care Provider Buddy Marlow NP Primary Care Provider Unavail [facility] Encounter Details Date Type Department Care Team Description 01/21/2020 Combat Engineer Report Medical Records [address] [place] [address] Raul German Social History Tobacco Use Types [...] on filedocumented in this encounter Care Teams [employer] Volleyball Coach Relationship Specialty Start Date End Date Celina Mann DO PCP - General Internal Medicine 03/21/16 11/23/20 Mercedes Han MD [address] [place] [address] PCP - General Internal Medicine 11/24/20 01/11/21 Callum Hernandez DO [address] [place] [address] PCP - General Internal Medicine 01/12/21 03/19/21 Lopez Brennan MD [address] [place] [address] PCP - General Internal Medicine 03/20/21 10/19/21 Buddy Shaw NP [address] [place] [address] PCP - General Family Practice 10/20/21 01/04/22 [facility], Pcp [address] [place] [address] PCP - General Internal Medicine 01/05/22 11/28/22 Buddy Shaw NP [address] [place] [address] PCP - General Family Practice 11/29/22 documented as of this encounter
--- OUTSIDE RECORDS SUMMARY | 2024-08-26 14:09 | XMS_ITS | Encounter Summary ---
Author Organization [facility] Address [address] [place] [address] Care Team Providers Care Cashier Office Name Role Phone Celina Mann DO Primary Care Pro vider Unavailable Mercedes Han MD Primary Care Provider [phone] Callum Hernandez DO Primary Care Provider Lopez Lu MD Primary Care Provider Buddy Foy NP Primary Care Provider Unavail able [facility], Pcp Primary Care Provider Buddy Marlow NP Primary Care Provider Unavail able Reason for Visit * Reason Comments E-prescribe Rx Request Encounter Details Date Type Department Care Team Description 10/23/2019 Refill Adult Medicine [address] [address] Celina Mann DO E-prescribe Rx Request Social [...] Telephone Encounter - Rose Lozada M.A. - 10/27/2019 11:09 AM EDT Last ov 10/06/19 * Telephone Encounter - Nataly Wright - 10/24/2019 10:58 AM EDT Patient would like script to be: E-PRESCRIBED/FAXED TO PHARMACY WHEN WAS THE PATIENT'S LAST APPOINTMENT IN ADULT MEDICINE? 09/28/2019 WHEN WAS THE LAST TIME THE PATIENT SAW THEIR PCP? Same as above Does patient have an upcoming appointment? No-patient refused appointment, will call back to book appointment (THE MEDICATION REQUESTED IS ON THE MED [...] N/A Patients current insurance carrier is: Payor: [employer] BETTENDORF / Plan: OncothyreonO $20 LEISENRING 1 / Product Type: HMO [id number] documented in this encounter Plan of Treatment Not on file documented as of this encounter Visit Diagnoses Not on filedocumented in this encounter Care Teams Cashier Office Relationship Specialty Start Date End Date Celina Mann DO PCP - General Internal Medicine 03/21/16 11/23/20 Mercedes Han MD [address] [place] [address] PCP - General Internal Medicine 11/24/20 01/11/21 Callum Hernandez DO [address] [place] [address] PCP - General Internal Medicine 01/12/21 03/19/21 Lopez Brennan MD [address] [place] [address] PCP - General Internal Medicine 03/20/21 10/19/21 Buddy Shaw NP [address] [place] [address] PCP - General Family Practice 10/20/21 01/04/22 [facility], Pcp [address] [place] [address] PCP - General Internal Medicine 01/05/22 11/28/22 Buddy Shaw NP [address] [place] [address] PCP - General Family Practice 11/29/22 documented as of this encounter
--- OUTSIDE RECORDS SUMMARY | 2024-08-26 14:09 | XMS_ITS | Encounter Summary ---
Author Organization [facility] Address [address] [place] [address] Care Team Providers Care Roofing Tile Sorter Name Role Phone Celina Mann DO Primary Care Pro vider Unavailable Mercedes Han MD Primary Care Provider Callum Hernandez DO Primary Care Provider Lopez Lu MD Primary Care Provider Buddy Foy NP Primary Care Provider Unavail able [facility] Pcp Primary Care Provider Buddy Marlow NP Primary Care Provider Unavail able Encounter Details Date Type Department Care Team Description 12/02/2019 Nurse Recruiter Report Medical Records [address] [place] [address] Megan Ramírez MD [address] [place] [address] Social History Tobacco Use Types Packs/Day Years [...] on filedocumented in this encounter Care Teams Roofing Tile Sorter Relationship Specialty Start Date End Date Celina Mann DO PCP - General Internal Medicine 03/21/16 11/23/20 Mercedes Han MD [address] [place], [place] [phone] PCP - General Internal Medicine 11/24/20 01/11/21 Callum Hernandez DO [address] [place], [place] [phone] PCP - General Internal Medicine 01/12/21 03/19/21 Lopez Brennan MD [address] [place], [place] [phone] PCP - General Internal Medicine 03/20/21 10/19/21 Buddy Shaw NP [address] [place], [place] [phone] PCP - General Family Practice 10/20/21 01/04/22 [facility] [place] [address] PCP - General Internal Medicine 01/05/22 11/28/22 Buddy Shaw NP [address] [place] [address] PCP - General Family Practice 11/29/22 documented as of this encounter
--- OUTSIDE RECORDS SUMMARY | 2024-08-26 14:09 | XMS_ITS | Encounter Summary ---
Author Organization [facility] Address [address] [place] [address] Care Team Providers Care Fairing Worker Name Role Phone Celina Mann DO Primary Care Pro vider Unavailable Mercedes Han MD Primary Care Provider [phone] Callum Hernandez DO Primary Care Provider Lopez Lu MD Primary Care Provider Buddy Foy NP Primary Care Provider Unavail able [facility] Pcp Primary Care Provider Buddy Marlow NP Primary Care Provider Unavail able Encounter Details Date Type Department Care Team Description 10/30/2019 Sash Installer Report Medical Records [address] [place] [address] Megan Ramírez MD [address] [place] [address] Social History Tobacco Use Types Packs/Day Years [...] on filedocumented in this encounter Care Teams Fairing Worker Relationship Specialty Start Date End Date Celina Mann DO PCP - General Internal Medicine 03/21/16 11/23/20 Mercedes Han MD [address] [place], [place] [phone] PCP - General Internal Medicine 11/24/20 01/11/21 Callum Hernandez DO [address] [place], [place] [phone] PCP - General Internal Medicine 01/12/21 03/19/21 Lopez Brennan MD [address] [place], [place] [phone] PCP - General Internal Medicine 03/20/21 10/19/21 Buddy Shaw NP [address] [place], [place] [phone] PCP - General Family Practice 10/20/21 01/04/22 [facility] [place] [address] PCP - General Internal Medicine 01/05/22 11/28/22 Buddy Shaw NP [address] [place] [address] PCP - General Family Practice 11/29/22 documented as of this encounter
--- OUTSIDE RECORDS SUMMARY | 2024-08-26 14:09 | XMS_ITS | Encounter Summary ---
Author Organization [facility] Address [address] [place] [address] Care Team Providers Care Program Arranger Name Role Phone Celina Mann DO Primary Care Pro vider Unavailable Mercedes Han MD Primary Care Provider [phone] Callum Hernandez DO Primary Care Provider Lopez Lu MD Primary Care Provider Buddy Foy NP Primary Care Provider Unavail [facility] Pcp Primary Care Provider Buddy Marlow NP Primary Care Provider Unavail [facility] Encounter Details Date Type Department Care Team Description 11/16/2019 Engraver Pantograph Report Medical Records [address] [place] [address] [facility] Social History Tobacco Use Types [...] on filedocumented in this encounter Care Teams Program Arranger Relationship Specialty Start Date End Date Celina Mann DO PCP - General Internal Medicine 03/21/16 11/23/20 Mercedes Han MD [address] [place] [address] PCP - General Internal Medicine 11/24/20 01/11/21 Callum Hernandez DO [address] [place] [address] PCP - General Internal Medicine 01/12/21 03/19/21 Lopez Brennan MD [address] [place] [address] PCP - General Internal Medicine 03/20/21 10/19/21 Buddy Shaw NP [address] [place] [address] PCP - General Family Practice 10/20/21 01/04/22 [facility], Pcp [address] [place] [address] PCP - General Internal Medicine 01/05/22 11/28/22 Buddy Shaw NP [address] [place] [address] PCP - General Family Practice 11/29/22 documented as of this encounter
--- OUTSIDE RECORDS SUMMARY | 2024-08-26 14:09 | XMS_ITS | Encounter Summary ---
Author Organization [facility] Address [address] [place] [address] Care Team Providers Care Transplant Nurse Practitioner Name Role Phone Celina Mann DO Primary Care Pro vider Unavailable Mercedes aHn MD Primary Care Provider [phone] Callum Hernandez DO Primary Care Provider Lopez Lu MD Primary Care Provider Buddy Foy NP Primary Care Provider Unavail able [facility] Pcp Primary Care Provider Buddy Marlow NP Primary Care Provider Unavail able Encounter Details Date Type Department Care Team Description 10/30/2019 Tube Coater Report Medical Records [address] [place] [address] Megan Ramírez MD [address] [place] [address] Social History Tobacco Use Types Packs/Day Years [...] on filedocumented in this encounter Care Teams Transplant Nurse Practitioner Relationship Specialty Start Date End Date Celina Mann DO PCP - General Internal Medicine 03/21/16 11/23/20 Mercedes Han MD [address] [place], [place] [id number] PCP - General Internal Medicine 11/24/20 01/11/21 Callum Hernandez DO [address] [place], [place] [phone] PCP - General Internal Medicine 01/12/21 03/19/21 Lopez Brennan MD [address] [place], [place] [phone] PCP - General Internal Medicine 03/20/21 10/19/21 Buddy Shaw NP [address] [place], [place] [phone] PCP - General Family Practice 10/20/21 01/04/22 [facility], [place] [address] PCP - General Internal Medicine 01/05/22 11/28/22 Buddy Shaw NP [address] [place] [address] PCP - General Family Practice 11/29/22 documented as of this encounter
--- OUTSIDE RECORDS SUMMARY | 2024-08-26 14:09 | XMS_ITS | Encounter Summary ---
Author Organization [facility] Address [address] [place] [address] Care Team Providers Care Gallery Or Museum Guide Name Role Phone Lopez Brennan MD Primary Care Provider Buddy Foy NP Primary Care Provider Unavail able [facility], Pcp Primary Care Provider Buddy Marlow NP Primary Care Provider Unavail able Encounter Details Date Type Department Care Team Description 10/10/2021 Orders Only [facility] Thoracic Surgery [place] 299 [facility] [address] [place] [phone] Simón Hamlin MD 299 [facility] [address] [place] [address] History of tobacco use, presenting hazards to health (Primary Dx) Social History Tobacco Use Types [...] AM EDT documented as of this encounter Plan of Treatment Not on file documented as of this encounter Results * CT LOW DOSE LUNG SCREEN ANNUAL (11/27/2021) Simón Hamlin MD CT SCANS documented in this encounter Visit Diagnoses Diagnosis History of tobacco use, presenting hazards to health- Primary Personal history of tobacco use, presenting hazards to health documented in this encounter Care Teams Gallery Or Museum Guide Relationship Specialty Start Date End Date Lopez Brennan MD PCP - General Internal Medicine 03/20/21 10/19/21 Buddy Shaw NP PCP - General Family Practice 10/20/21 01/04/22 [facility] PCP - General Internal Medicine 01/05/22 11/28/22 Buddy Shaw NP PCP - General Family Practice 11/29/22 documented as of this encounter
--- OUTSIDE RECORDS SUMMARY | 2024-08-26 14:09 | XMS_ITS | Encounter Summary ---
Author Organization [facility] Address [address] [place] [address] Care Team Providers Care Lens Generating Machine Tender Name Role Phone Celina Mann DO Primary Care Pro vider Unavailable Mercedes Han MD Primary Care Provider [phone] Callum Hernandez DO Primary Care Provider Lopez Lu MD Primary Care Provider Buddy Foy NP Primary Care Provider Unavail able [facility], Pcp Primary Care Provider Buddy Marlow NP Primary Care Provider Unavail able Reason for Visit * Reason Onset Date Comments TEST RESULTS 10/16/2019 Encounter Details Date Type Department Care Team Description 10/16/2019 Pt. Non Urgent Medic al Question Adult Medicine [address] [address] Celina Mann DO Social History Tobacco Use [...] on filedocumented in this encounter Care Teams Lens Generating Machine Tender Relationship Specialty Start Date End Date Celina Mann DO PCP - General Internal Medicine 03/21/16 11/23/20 Mercedes Han MD [address] [place] [address] PCP - General Internal Medicine 11/24/20 01/11/21 Callum Hernandez DO [address] [place] [address] PCP - General Internal Medicine 01/12/21 03/19/21 Lopez Brennan MD [address] [place] [address] PCP - General Internal Medicine 03/20/21 10/19/21 Buddy Shaw NP [address] [place] [address] PCP - General Family Practice 10/20/21 01/04/[address] [address] PCP - General Internal Medicine 01/05/22 11/28/22 Buddy Shaw NP [address] [place] [address] PCP - General Family Practice 11/29/22 documented as of this encounter
--- OUTSIDE RECORDS SUMMARY | 2024-08-26 14:09 | XMS_ITS | Encounter Summary ---
Author Organization [facility] Address [address] [place] [address] Care Team Providers Care Broadcast Systems Engineer Name Role Phone Celina Mann DO Primary Care Pro vider Unavailable Mercedes Han MD Primary Care Provider [phone] Callum Hernandez DO Primary Care Provider Lopez Lu MD Primary Care Provider Buddy Foy NP Primary Care Provider Unavail [facility] Pcp Primary Care Provider Buddy Marlow NP Primary Care Provider Unavail [facility] Encounter Details Date Type Department Care Team Description 10/29/2019 Scientific Writer Report Medical Records [address] [place] [address] [facility] Social History Tobacco Use Types Packs/Day [...] on filedocumented in this encounter Care Teams Broadcast Systems Engineer Relationship Specialty Start Date End Date Celina Mann DO PCP - General Internal Medicine 03/21/16 11/23/20 Mercedes Han MD [address] [place] [address] PCP - General Internal Medicine 11/24/20 01/11/21 Callum Hernandez DO [address] [place] [address] PCP - General Internal Medicine 01/12/21 03/19/21 Lopez Brennan MD [address] [place] [address] PCP - General Internal Medicine 03/20/21 10/19/21 Buddy Shaw NP [address] [place] [address] PCP - General Family Practice 10/20/21 01/04/22 [facility], Pcp [address] [place] [address] PCP - General Internal Medicine 01/05/22 11/28/22 Buddy Shaw NP [address] [place] [address] PCP - General Family Practice 11/29/22 documented as of this encounter
--- OUTSIDE RECORDS SUMMARY | 2024-08-26 14:09 | XMS_ITS | Encounter Summary ---
Author Organization [facility] Address [address] [place] [address] Care Team Providers Care Porter Baggage Name Role Phone Celina Mann DO Primary Care Pro vider Unavailable Mercedes Han MD Primary Care Provider [phone] Callum Hernandez DO Primary Care Provider Lopez Lu MD Primary Care Provider Buddy Foy NP Primary Care Provider Unavail able [facility], Pcp Primary Care Provider UnavailBuddy Stephen NP Primary Care Provider Unavail able Reason for Visit * Reason Onset Date Comments DME Request 01/15/2018 Encounter Details Date Type Department Care Team Description 01/15/2018 Telephone Pulmonology - [place] [address] [facility] [address] [place] [address] [facility] [address] [place] [address] DME Request Social History Tobacco Use Types [...] encounter Miscellaneous Notes * Telephone Encounter - Lucila Torres - 01/30/2018 3:52 PM EDT Booked pt for a May apt she said she still needs the supplies before then * Telephone Encounter - Lucila Torres - 01/15/2018 10:05 AM EDT Left vm to call back and schedule an apt * Telephone Encounter - LESVIA Lujan - 01/15/2018 10:02 AM EDT Not seen by me in over a year. Needs appt. * Telephone Encounter - Lucila Torres - 01/15/2018 9:59 AM EDT Elsa from sleep medicine services wanted to let Eula know that they can longer service the pt due to change in insurance [phone] documented in this encounter Plan of Treatment Not on file documented as of this encounter Visit Diagnoses Not on filedocumented in this encounter Care Teams Porter Baggage Relationship Specialty Start Date End Date Celina Mann DO PCP - General Internal Medicine 03/21/16 11/23/20 Mercedes Han MD [address] [place], [place] [phone] PCP - General Internal Medicine 11/24/20 01/11/21 Callum Hernandez DO [address] [place] [address] PCP - General Internal Medicine 01/12/21 03/19/21 Lopez Brennan MD [address] [place] [address] PCP - General Internal Medicine 03/20/21 10/19/21 Buddy Shaw NP [address] [place], [place] [phone] PCP - General Family Practice 10/20/21 01/04/22 [facility], Pcp [address] [place] [address] PCP - General Internal Medicine 01/05/22 11/28/22 Buddy Shaw NP [address] [place] [address] PCP - General Family Practice 11/29/22 documented as of this encounter
--- OUTSIDE RECORDS SUMMARY | 2024-08-26 14:09 | XMS_ITS | Encounter Summary ---
Author Organization [facility] Address [address] [place] [address] Care Team Providers Care Staffing Mgr Name Role Phone Luciano Skinner MD Primary Care Provider Katherine Blake Bourgeois MD Primary Care Provider Unavail able Celina Mann DO Primary Care Pro vider Unavailable Mercedes Han MD Primary Care Provider [phone] Celina Mann DO Primary Care Pro vider Unavailable Mercedes Han MD Primary Care Provider [phone] Callum Hernandez DO Primary Care Provider Katherine Lopez Aragon MD Primary Care Provider UnaBuddy Castellanos NP Primary Care Provider Unavail able [facility], Pcp Primary Care Provider UnavailBuddy Stephen NP Primary Care Provider Unavail able Encounter Details Date Type Department Care Team Description 01/27/2013 Certified Technician Specialist Report Medical Records [address] [place] [address] Jesús Martinez Social History Tobacco Use Types [...] on filedocumented in this encounter Care Teams Staffing Mgr Relationship Specialty Start Date End Date Luciano Skinner MD PCP - General 12/13/10 05/10/14 Blake Rivera MD PCP - General Internal Medicine 05/11/14 03/03/15 Celina Mann, DO PCP - General Internal Medicine 03/04/15 02/06/16 Mercedes Han MD [address] [place] [address] PCP - General Internal Medicine 02/07/16 03/20/16 Celina Mann, PCP - General Internal Medicine 03/21/16 11/23/20 Mercedes Han MD [address] [place] [address] PCP - General Internal Medicine 11/24/20 01/11/21 Callum Hernandez DO [address] [place] [place] [address] PCP - General Internal Medicine 01/12/21 03/19/21 Lopez Brennan MD [address] [place] [place] [address] PCP - General Internal Medicine 03/20/21 10/19/21 Buddy Shaw NP [address] [place] [address] PCP - General Family Practice 10/20/21 01/04/22 [facility], Pcp [address] [place] [address] PCP - General Internal Medicine 01/05/22 11/28/22 Buddy Shaw NP [address] [place] [address] PCP - General Family Practice 11/29/22 documented as of this encounter
--- OUTSIDE RECORDS SUMMARY | 2024-08-26 14:09 | XMS_ITS | Encounter Summary ---
Author Organization [facility] Address [address] [place] [address] Care Team Providers Care Afternoon Nanny Name Role Phone [facility], Pcp Primary Care Provider Buddy Marlow NP Primary Care Provider Unavail able Encounter Details Date Type Department Care Team Description 11/05/2022 Orders Only [facility] Medical Group Lung Screening Program [place] 299 [facility] [address] [place] [address] Simón Hamlin MD 299 [facility] [address] [place] [address] Pulmonary nodule/lesion, solitary (Primary Dx); Encounter for [...] health documented in this encounter Care Teams Afternoon Nanny Relationship Specialty Start Date End Date [facility], Pcp PCP - General Internal Medicine 01/05/22 11/28/22 Glogowski, Buddy, GRAIN PICKER PCP - General Family Practice 11/29/22 documented as of this encounter
--- OUTSIDE RECORDS SUMMARY | 2024-08-26 14:09 | XMS_ITS | Encounter Summary ---
Author Organization [facility] Address [address] [place] [address] Care Team Providers Care Research Biologist Name Role Phone Luciano Skinner MD Primary Care Provider Katherine Blake Bourgeois MD Primary Care Provider Unavail able Celina Mann DO Primary Care Pro vider Unavailable Mercedes Han MD Primary Care Provider [phone] Celina Mann DO Primary Care Pro vider Unavailable Mercedes Han MD Primary Care Provider [phone] Callum Hernandez DO Primary Care Provider Katherine Lopez Aragon MD Primary Care Provider UnaBuddy Castellanos NP Primary Care Provider Unavail able [facility], Pcp Primary Care Provider UnavailBuddy Stephen NP Primary Care Provider Unavail able Encounter Details Date Type Department Care Team Description 04/10/2013 Nuclear Supervising Operator Report Medical Records [address] [place] [address] Eric Ladd MD Social History Tobacco Use [...] on filedocumented in this encounter Care Teams Research Biologist Relationship Specialty Start Date End Date Luciano Skinner MD PCP - General 12/13/10 05/10/14 Blake Rivera MD PCP - General Internal Medicine 05/11/14 03/03/15 Celina Mann, DO PCP - General Internal Medicine 03/04/15 02/06/16 Mercedes Han MD [address] [place] [address] PCP - General Internal Medicine 02/07/16 03/20/16 Celina Mann, PCP - General Internal Medicine 03/21/16 11/23/20 Mercedes Han MD [address] [place] [address] PCP - General Internal Medicine 11/24/20 01/11/21 Callum Hernandez, [address] [place] [address] PCP - General Internal Medicine 01/12/21 03/19/21 Lopez Brennan MD [address] [place] [address] PCP - General Internal Medicine 03/20/21 10/19/21 Buddy Shaw NP [address] [place] [address] PCP - General Family Practice 10/20/21 01/04/22 [facility], Pcp [address] [place] [address] PCP - General Internal Medicine 01/05/22 11/28/22 Buddy Shaw NP [address] [place] [address] PCP - General Family Practice 11/29/22 documented as of this encounter
--- OUTSIDE RECORDS SUMMARY | 2024-08-26 14:09 | XMS_ITS | Encounter Summary ---
Author Organization [facility] Address [address] [place] [address] Care Team Providers Care Environmental Services Specialist Name Role Phone Buddy Shaw DIRECTOR VOICE Primary Care Provider Unavail able [facility], Pcp Primary Care Provider Unavailabl e Buddy Shaw DIRECTOR VOICE Primary Care Provider Unavail able Encounter Details Date Type Department Care Team Description 11/27/2021 Handbell Choir Director Report Medical Records [address] [place] [id number] [place] [address] Social History Tobacco Use Types Packs/Day Years [...] on filedocumented in this encounter Care Teams Environmental Services Specialist Relationship Specialty Start Date End Date Buddy Shaw NP PCP - General Family Practice 10/20/21 01/04/22 [facility], Pcp PCP - General Internal Medicine 01/05/22 11/28/22 Buddy Shaw NP PCP - General Family Practice 11/29/22 documented as of this encounter
--- OUTSIDE RECORDS SUMMARY | 2024-08-26 14:09 | XMS_ITS | Encounter Summary ---
Author Organization [facility] Address [address] [place] [address] Care Team Providers Care Yardage Estimator Name Role Phone Luciano Skinner MD Primary Care Provider Katherine Blake Bourgeois MD Primary Care Provider Unavail able Celina Mann DO Primary Care Pro vider Unavailable Mercedes Han MD Primary Care Provider [phone] Celina Mann DO Primary Care Pro vider Unavailable Mercedes Han MD Primary Care Provider [phone] Callum Hernandez DO Primary Care Provider Katherine Lopez Aragon MD Primary Care Provider UnaBuddy Castellanos NP Primary Care Provider Unavail able [facility], Pcp Primary Care Provider UnavailBuddy Stephen NP Primary Care Provider Unavail able Encounter Details Date Type Department Care Team Description 02/24/2013 Training Development Specialist Report Medical Records [address] [place] [address] Jesús Martinez Social History Tobacco Use Types [...] on filedocumented in this encounter Care Teams Yardage Estimator Relationship Specialty Start Date End Date Luciano Skinner MD PCP - General 12/13/10 05/10/14 Blake Rivera MD PCP - General Internal Medicine 05/11/14 03/03/15 Celina Mann, DO PCP - General Internal Medicine 03/04/15 02/06/16 Mercedes Han MD [address] [place] [address] PCP - General Internal Medicine 02/07/16 03/20/16 Celina Mann, PCP - General Internal Medicine 03/21/16 11/23/20 Mecredes Han MD [address] [place] [address] PCP - General Internal Medicine 11/24/20 01/11/21 Callum Hernandez DO [address] [place] [address] PCP - General Internal Medicine 01/12/21 03/19/21 Lopez Brennan MD [address] [place] [address] PCP - General Internal Medicine 03/20/21 10/19/21 Buddy Shaw NP [address] [place] [address] PCP - General Family Practice 10/20/21 01/04/22 [facility], Pcp [address] [place] [address] PCP - General Internal Medicine 01/05/22 11/28/22 Buddy Shaw NP [address] [place] [address] PCP - General Family Practice 11/29/22 documented as of this encounter
--- OUTSIDE RECORDS SUMMARY | 2024-08-26 14:09 | XMS_ITS | Encounter Summary ---
Author Organization [facility] Address [address] [place] [address] Care Team Providers Care Bleacher Kraft Pulp Name Role Phone Celina Mann DO Primary Care Pro vider Unavailable Mercedes Han MD Primary Care Provider [phone] Callum Hernandez DO Primary Care Provider Lopez Lu MD Primary Care Provider Buddy Foy NP Primary Care Provider Unavail able [facility], Pcp Primary Care Provider UnavailBuddy Stephen NP Primary Care Provider Unavail able Reason for Visit * Reason Onset Date Comments Sweating, Excessive 01/19/2018 Encounter Details Date Type Department Care Team Description 01/19/2018 Pt. Non Urgent Medic al Question Adult Medicine [address] [address] Celina Mann DO Social History Tobacco Use [...] on filedocumented in this encounter Care Teams Bleacher Kraft Pulp Relationship Specialty Start Date End Date Celina Mann DO PCP - General Internal Medicine 03/21/16 11/23/20 Mercedes Han MD [address] [place] [address] PCP - General Internal Medicine 11/24/20 01/11/21 Callum Hernandez DO [address] [place] [address] PCP - General Internal Medicine 01/12/21 03/19/21 Lopez Brennan MD [address] [place] [address] PCP - General Internal Medicine 03/20/21 10/19/21 Buddy Shaw NP [address] [place] [address] PCP - General Family Practice 10/20/21 01/04/22 [facility], Pcp [address] [place] [address] PCP - General Internal Medicine 01/05/22 11/28/22 Buddy Shaw NP [address] [place] [address] PCP - General Family Practice 11/29/22 documented as of this encounter
--- OUTSIDE RECORDS SUMMARY | 2024-08-26 14:09 | XMS_ITS | Encounter Summary ---
Author Organization [facility] Address [address] [place] [address] Care Team Providers Care Road Test Examiner Name Role Phone Celina Mann DO Primary Care Pro vider Unavailable Mercedes Han MD Primary Care Provider [phone] Callum Hernandez DO Primary Care Provider Lopez Lu MD Primary Care Provider Buddy Foy NP Primary Care Provider Unavail [facility] Pcp Primary Care Provider Buddy Marlow NP Primary Care Provider Unavail able Encounter Details Date Type Department Care Team Description 09/10/2018 Orders Only Medical Records [address] [place] [address] Celina Mann DO Social History Tobacco Use [...] Procedure Name Priority Date/Time Associated Diagnosis Comments OUTSIDE LOOP RECORDER Routine 08/08/2018 documented in this encounter Results * OUTSIDE LOOP RECORDER (08/08/2018) Celina Ulloa DO CARDIOLOG Y documented in this encounter Visit Diagnoses Not on filedocumented in this encounter Care Teams Road Test Examiner Relationship Specialty Start Date End Date Celina Mann DO PCP - General Internal Medicine 03/21/16 11/23/20 Mercedes Han MD [address] [place], [place] [phone] PCP - General Internal Medicine 11/24/20 01/11/21 Callum Hernandez DO [address] [place], [place] [address] PCP - General Internal Medicine 01/12/21 03/19/21 Lopez Brennan MD [address] [place] [address] PCP - General Internal Medicine 03/20/21 10/19/21 Buddy Shaw NP [address] [place] [address] PCP - General Family Practice 10/20/21 01/04/[address] [address] PCP - General Internal Medicine 01/05/22 11/28/22 Buddy Shaw NP [address] [place] [address] PCP - General Family Practice 11/29/22 documented as of this encounter
--- OUTSIDE RECORDS SUMMARY | 2024-08-26 14:09 | XMS_ITS | Encounter Summary ---
Author Organization [facility] Address [address] [place] [address] Care Team Providers Care Specification Manager Name Role Phone Lopez Brennan MD Primary Care Provider Buddy Foy NP Primary Care Provider Unavail able [facility], Pcp Primary Care Provider Buddy Marlow NP Primary Care Provider Unavail able Reason for Visit * Reason Onset Date Comments DME Request 06/13/2021 Encounter Details Date Type Department Care Team Description 06/13/2021 Telephone Pulmonology - [place] [address] [facility] [address] [place] [address] Eula Norris [facility] [address] [place] [address] DME Request Social History Tobacco Use Types [...] on filedocumented in this encounter Care Teams Specification Manager Relationship Specialty Start Date End Date Lopez Brennan MD PCP - General Internal Medicine 03/20/21 10/19/21 Buddy Shaw NP PCP - General Family Practice 10/20/21 01/04/22 [facility], Pcp PCP - General Internal Medicine 01/05/22 11/28/22 Buddy Shaw NP PCP - General Family Practice 11/29/22 documented as of this encounter
--- OUTSIDE RECORDS SUMMARY | 2024-08-26 14:09 | XMS_ITS | Encounter Summary ---
Author Organization [facility] Address [address] [place] [address] Care Team Providers Care Finance And Administration Manager Name Role Phone Buddy Shaw TON CYLINDER INSPECTOR Primary Care Provider Unavail able [facility], Pcp Primary Care Provider Unavailabl Buddy Irving TON CYLINDER INSPECTOR Primary Care Provider Unavail able Encounter Details Date Type Department Care Team Description 11/27/2021 Orders Only [facility] Thoracic Surgery [place] [address] [facility] [address] [place] [phone] Simón Hamlin MD 299 [facility] [address] [place], [place] [id number] History of tobacco use, presenting hazards to [...] health documented in this encounter Care Teams Finance And Administration Manager Relationship Specialty Start Date End Date Buddy Shaw NP PCP - General Family Practice 10/20/21 01/04/22 [facility], Pcp PCP - General Internal Medicine 01/05/22 11/28/22 Buddy Shaw NP PCP - General Family Practice 11/29/22 documented as of this encounter
--- OUTSIDE RECORDS SUMMARY | 2024-08-26 14:09 | XMS_ITS | Encounter Summary ---
Author Organization [facility] Address [address] [place] [address] Care Team Providers Care Outdoor Emergency Care Technician Name Role Phone Luciano Skinner MD Primary Care Provider Katherine Blake Bourgeois MD Primary Care Provider Unavail able Celina Mann DO Primary Care Pro vider Unavailable Mercedes Han MD Primary Care Provider + [phone] Celina Mann DO Primary Care Pro vider Unavailable Mercedes Han MD Primary Care Provider + [phone] Callum Hernandez DO Primary Care Provider Katherine Lopez Aragon MD Primary Care Provider Buddy Foy NP Primary Care Provider Unavail able [facility] Primary Care Provider UnavailBuddy Stephen NP Primary Care Provider Unavail able Encounter Details Date Type Department Care Team Description 04/09/2013 Release of Information Medical Records [address] [place] [address] Abstract, Provider Social History Tobacco Use Types [...] on filedocumented in this encounter Care Teams Outdoor Emergency Care Technician Relationship Specialty Start Date End Date Luciano Skinner MD PCP - General 12/13/10 05/10/14 Blake Rivera MD PCP - General Internal Medicine 05/11/14 03/03/15 Celina Mann, DO PCP - General Internal Medicine 03/04/15 02/06/16 Mercedes Han MD [address] [place] [address] PCP - General Internal Medicine 02/07/16 03/20/16 Celina Mann, PCP - General Internal Medicine 03/21/16 11/23/20 Mercedes Han MD [address] [place] [address] 16338 PCP - General Internal Medicine 11/24/20 01/11/21 Callum Hernandez DO [address] [place] [address] 63804 PCP - General Internal Medicine 01/12/21 03/19/21 Lopez Brennan MD [address] [place] [address] 66492 PCP - General Internal Medicine 03/20/21 10/19/21 Buddy Shaw NP [address] [place] [address] 81674 PCP - General Family Practice 10/20/21 01/04/22 [facility], Pcp [address] [place] [address] 57536 PCP - General Internal Medicine 01/05/22 11/28/22 Buddy Shaw NP [address] [place] [address] 68592 PCP - General Family Practice 11/29/22 documented as of this encounter
--- OUTSIDE RECORDS SUMMARY | 2024-08-26 14:10 | XMS_ITS | Encounter Summary ---
Author Organization [facility] Address [address] [place] [address] Care Team Providers Care Environmental Department Manager Name Role Phone Luciano Skinner MD Primary Care Provider Katherine Blake Bourgeois MD Primary Care Provider Unavail able Celina Mann DO Primary Care Pro vider Unavailable Mercedes Han MD Primary Care Provider + [phone] Celina Mann DO Primary Care Pro vider Unavailable Mercedes Han MD Primary Care Provider + [phone] Callum Hernandez DO Primary Care Provider Katherine Lopez Aragon MD Primary Care Provider Buddy Foy NP Primary Care Provider Unavail able [facility], Pcp Primary Care Provider UnavailBuddy Stephen NP Primary Care Provider Unavail able Encounter Details Date Type Department Care Team Description 11/06/2012 Hospital Medical Records [address] [place] [address] Lux Dodge Social History Tobacco Use Types Packs/Day Years [...] filedocumented in this encounter Care Teams Environmental Department Manager Relationship Specialty Start Date End Date Brody, Luciano M., MD PCP - General 12/13/10 05/10/14 Blake Rivera MD PCP - General Internal Medicine 05/11/14 03/03/15 Celina Mann, PCP - General Internal Medicine 03/04/15 02/06/16 Mercedes Han MD [address] [place] [address] PCP - General Internal Medicine 02/07/16 03/20/16 Celina Mann, PCP - General Internal Medicine 03/21/16 11/23/20 Mercedes Han MD [address] [place] [address] PCP - General Internal Medicine 11/24/20 01/11/21 Callum Hernandez DO [address] [place] [address] 08005 PCP - General Internal Medicine 01/12/21 03/19/21 Lopez Brennan MD [address] [place] [address] 79675 PCP - General Internal Medicine 03/20/21 10/19/21 Buddy Shaw NP [address] [place] [address] 42053 PCP - General Family Practice 10/20/21 01/04/22 [facility], Pcp [address] [place] [address] 11474 PCP - General Internal Medicine 01/05/22 11/28/22 Buddy Shaw NP [address] [place] [address] 53352 PCP - General Family Practice 11/29/22 documented as of this encounter
--- OUTSIDE RECORDS SUMMARY | 2024-08-26 14:10 | XMS_ITS | Encounter Summary ---
Author Organization [facility] Address [address] [place] [address] Care Team Providers Care International Relations Teacher Name Role Phone Celina Mann DO Primary Care Pro vider Unavailable Mercedes Han MD Primary Care Provider Callum Hernandez DO Primary Care Provider Lopez Lu MD Primary Care Provider Buddy Foy NP Primary Care Provider Unavail [facility] Primary Care Provider Buddy Marlow NP Primary Care Provider Unavail able Encounter Details Date Type Department Care Team Description 08/23/2020 Orders Only Adult Medicine [address] [address] Celina Mann DO Social History Tobacco Use [...] PM EST documented as of this encounter Plan of Treatment Not on file documented as of this encounter Visit Diagnoses Not on filedocumented in this encounter Care Teams International Relations Teacher Relationship Specialty Start Date End Date Celina Mann DO PCP - General Internal Medicine 03/21/16 11/23/20 Mercedes Han MD [address] [place], [place] [phone] PCP - General Internal Medicine 11/24/20 01/11/21 Callum Hernandez DO [address] [place], [place] [phone] PCP - General Internal Medicine 01/12/21 03/19/21 Lopez Brennan MD [address] [place] [address] PCP - General Internal Medicine 03/20/21 10/19/21 Buddy Shaw NP [address] [place] [address] 65[address] PCP - General Family Practice 10/20/21 01/04/[address] [address] PCP - General Internal Medicine 01/05/22 11/28/22 Buddy Shaw NP [address] [place] [address] 37724 PCP - General Family Practice 11/29/22 documented as of this encounter
--- OUTSIDE RECORDS SUMMARY | 2024-08-26 14:10 | XMS_ITS | Patient Health Record ---
Author Organization 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
--- OUTSIDE RECORDS SUMMARY | 2024-08-26 14:10 | XMS_ITS | Encounter Summary ---
Author Organization [facility] Address [address] [place] [address] Care Team Providers Care Licsw Name Role Phone Luciano Skinner MD Primary Care Provider Katherine Blake Bourgeois MD Primary Care Provider Unavail able Celina Mann DO Primary Care Pro vider Unavailable Mercedes Han MD Primary Care Provider [phone] Celina Mann DO Primary Care Pro vider Unavailable Mercedes Han MD Primary Care Provider + [phone] Callum Hernandez DO Primary Care Provider Katherine Lopez Aragon MD Primary Care Provider Buddy Foy NP Primary Care Provider Unavail able [facility], Pcp Primary Care Provider UnavailBuddy Stephen NP Primary Care Provider Unavail able Reason for Visit * Reason Onset Date Comments Provider Call Back 07/03/2011 Encounter Details Date Type Department Care Team Description 07/03/2011 Telephone Physiatry - [address] [address] Sammy Mcintyre DO Provider Call Back Social History Tobacco Use Types Packs/Day Years [...] encounter Miscellaneous Notes * Telephone Encounter - Rowan Leija L.P.N. - 07/03/2011 9:51 AM EST Spoke to nereida told her x-ray of hip and SI joints showed mild degenerative changes. * Telephone Encounter - Kaylyn Eloy - 07/03/2011 8:59 AM EST Patient calling stating she had xrays and was to hear from Dr. Mcintyre about the results. Please call work number till 4:30 documented in this encounter Plan of Treatment Not on file documented as of this encounter Visit Diagnoses Not on filedocumented in this encounter Care Teams Licsw Relationship Specialty Start Date End Date Luciano Skinner MD PCP - General 12/13/10 05/10/14 Blake Rivera MD PCP - General Internal Medicine 05/11/14 03/03/15 Celina Mann, PCP - General Internal Medicine 03/04/15 02/06/16 Mercedes Han MD [address] [place] [address] PCP - General Internal Medicine 02/07/16 03/20/16 Celina Mann DO PCP - General Internal Medicine 03/21/16 11/23/20 Mercedes Han MD [address] [place] [address] PCP - General Internal Medicine 11/24/20 01/11/21 Callum Hernandez DO [address] [place] [address] PCP - General Internal Medicine 01/12/21 03/19/21 Lopez Brennan MD [address] [place] [address] PCP - General Internal Medicine 03/20/21 10/19/21 Buddy Shaw NP [address] [place] [address]329 PCP - General Family Practice 10/20/21 01/04/22 [facility], Pcp [address] [place] [address] PCP - General Internal Medicine 01/05/22 11/28/22 Buddy Shaw NP [address] [place] [address] PCP - General Family Practice 11/29/22 documented as of this encounter
--- OUTSIDE RECORDS SUMMARY | 2024-08-26 14:10 | XMS_ITS | Encounter Summary ---
Author Organization [facility] Address [address] [place] [address] Care Team Providers Care Forensic Chemist Name Role Phone Celina Mann DO Primary Care Pro vider Unavailable Mercedes Han MD Primary Care Provider [phone] Callum Hernandez DO Primary Care Provider Lopez Lu MD Primary Care Provider Buddy Foy NP Primary Care Provider Unavail [facility] Pcp Primary Care Provider Buddy Marlow NP Primary Care Provider Unavail able Encounter Details Date Type Department Care Team Description 11/21/2020 Diesel Bus Mechanic Report Medical Records [address] [place] [address] Center[facility] [address] [place] [address] Social History Tobacco Use Types Packs/Day Years [...] on filedocumented in this encounter Care Teams Forensic Chemist Relationship Specialty Start Date End Date Celina Mann DO PCP - General Internal Medicine 03/21/16 11/23/20 Mercedes Han MD [address] [place], [place] [phone] PCP - General Internal Medicine 11/24/20 01/11/21 Callum Hernandez DO [address] [place] [address] PCP - General Internal Medicine 01/12/21 03/19/21 Lopez Brennan MD [address] [place] [address] PCP - General Internal Medicine 03/20/21 10/19/21 Buddy Shaw NP [address] [place] [address] PCP - General Family Practice 10/20/21 01/04/22 [facility], Pcp [address] [place] [address] PCP - General Internal Medicine 01/05/22 11/28/22 Buddy Shaw NP [address] [place] [address] PCP - General Family Practice 11/29/22 documented as of this encounter
--- OUTSIDE RECORDS SUMMARY | 2024-08-26 14:10 | XMS_ITS | Encounter Summary ---
Author Organization [facility] Address [address] [place] [address] Care Team Providers Care News Anchor Name Role Phone Celina Mann DO Primary Care Pro vider Unavailable Mercedes Han MD Primary Care Provider [phone] Callum Hernandez DO Primary Care Provider Lopez Lu MD Primary Care Provider Buddy Foy NP Primary Care Provider Unavail able [facility], Pcp Primary Care Provider Buddy Marlow NP Primary Care Provider Unavail able Reason for Referral * EXTERNAL (Routine) - Authorized/Booked Specialty Diagnoses / Procedures Referred By Kailey dominguez Referred To Contact Neurology Procedures REFERRAL TO NEUROLOGY Celina Mann DO [address] [place] [address] Tristen Díaz MD Referral ID Status Reason Start Date Expiration Date V isits Requested Visits Authorized SEE NOTE Authorized/B ooked 09/12/2016 12/19/2016 1 1 Encounter Details Date Type Department Care Team Description 09/12/2016 Orders Only Adult Medicine [address] [phone] Celina Mann DO Social History Tobacco Use [...] on filedocumented in this encounter Care Teams News Anchor Relationship Specialty Start Date End Date Celina Mann DO PCP - General Internal Medicine 03/21/16 11/23/20 Mercedes Han MD [address] [place] [address] PCP - General Internal Medicine 11/24/20 01/11/21 Callum Hernandez DO [address] [place] [address] PCP - General Internal Medicine 01/12/21 03/19/21 Lopez Brennan MD [address] [place] [address] PCP - General Internal Medicine 03/20/21 10/19/21 Buddy Shaw NP [address] [place] [address] PCP - General Family Practice 10/20/21 01/04/22 [place] [address] PCP - General Internal Medicine 01/05/22 11/28/22 Buddy Shaw NP [address] [place] [address] PCP - General Family Practice 11/29/22 documented as of this encounter
--- OUTSIDE RECORDS SUMMARY | 2024-08-26 14:10 | XMS_ITS | Encounter Summary ---
Author Organization [facility] Address [address] [place] [address] Care Team Providers Care Caregiver Assisted Living Name Role Phone Luciano Skinner MD Primary Care Provider Katherine Blake Bourgeois MD Primary Care Provider Unavail able Celina Mann DO Primary Care Pro vider Unavailable Mercedes Han MD Primary Care Provider [phone] Celina Mann DO Primary Care Pro vider Unavailable Mercedes Han MD Primary Care Provider [phone] Callum Hernandez DO Primary Care Provider [...] Procedures REFERRAL TO NEUROLOGY Luciano Skinner MD [address] [place] [address] External Neurology Referral ID Status Reason Start Date Expiration Date V isits Requested Visits Authorized SEE REVIEW 12/11/11 Authorized/ Booked 12/10/2011 03/12/2012 1 1 Encounter Details Date Type Department Care Team Description 12/07/2011 Pt. Non Urgent Medical Question Adult Medicine [address] [address] Luciano Skinner MD Abnormal CT scan of [...] loss documented in this encounter Care Teams Caregiver Assisted Living Relationship Specialty Start Date End Date Luciano Skinner MD PCP - General 12/13/10 05/10/14 Blake Rivera MD PCP - General Internal Medicine 05/11/14 03/03/15 Celina Mann DO PCP - General Internal Medicine 03/04/15 02/06/16 Mercedes Han MD [address] [place] [address] PCP - General Internal Medicine 02/07/16 03/20/16 Celina Mann DO PCP - General Internal Medicine 03/21/16 11/23/20 Mercedes Han MD [address] [place] [address] PCP - General Internal Medicine 11/24/20 01/11/21 Callum Hernandez DO [address] [place] [address] 34962 PCP - General Internal Medicine 01/12/21 03/19/21 Lopez Brennan MD [address] [place] [address] PCP - General Internal Medicine 03/20/21 10/19/21 Buddy Shaw NP [address] [place] [address] PCP - General Family Practice 10/20/21 01/04/22 [facility], Pcp [address] [place] [address] 24770 PCP - General Internal Medicine 01/05/22 11/28/22 Buddy Shaw NP [address] [place] [address] 349[address] PCP - General Family Practice 11/29/22 documented as of this encounter
--- OUTSIDE RECORDS SUMMARY | 2024-08-26 14:10 | XMS_ITS | Encounter Summary ---
Author Organization [facility] Address [address] [place] [address] Care Team Providers Care Hobbing Machine Operator Name Role Phone Luciano Skinner MD Primary Care Provider Katherine Blake Bourgeois MD Primary Care Provider Unavail able Celina Mann DO Primary Care Pro vider Unavailable Mercedes Han MD Primary Care Provider + [phone] Celina Mann DO Primary Care Pro vider Unavailable Mercedes Han MD Primary Care Provider + [phone] Callum Hernandez DO Primary Care Provider Katherine Lopez Aragon MD Primary Care Provider UnaBuddy Castellanos NP Primary Care Provider Unavail able [facility], Pcp Primary Care Provider UnavailBuddy Stephen NP Primary Care Provider Unavail able Encounter Details Date Type Department Care Team Description 04/02/2014 Inside Sales Manager Report Medical Records [address] [place] [address] Leandro Harvey V., DPM Social History Tobacco Use Types Packs/Day [...] on filedocumented in this encounter Care Teams Hobbing Machine Operator Relationship Specialty Start Date End Date Luciano Skinner MD PCP - General 12/13/10 05/10/14 Blake Rivera MD PCP - General Internal Medicine 05/11/14 03/03/15 Celina Mann, PCP - General Internal Medicine 03/04/15 02/06/16 Mercedes Han MD [address] [place] [address] PCP - General Internal Medicine 02/07/16 03/20/16 Celina Mann, PCP - General Internal Medicine 03/21/16 11/23/20 Mercedes Han MD [address] [place] [address] PCP - General Internal Medicine 11/24/20 01/11/21 Callum Hernandez DO [address] [place] [address] PCP - General Internal Medicine 01/12/21 03/19/21 Lopez Brennan MD [address] [place] [address] PCP - General Internal Medicine 03/20/21 10/19/21 Buddy Shaw NP [address] [place] [address] PCP - General Family Practice 10/20/21 01/04/22 [facility], [address] [address] PCP - General Internal Medicine 01/05/22 11/28/22 Buddy Shaw NP [address] [place] [address] PCP - General Family Practice 11/29/22 documented as of this encounter
--- OUTSIDE RECORDS SUMMARY | 2024-08-26 14:10 | XMS_ITS | Encounter Summary ---
Author Organization [facility] Address [address] [place] [address] Care Team Providers Care Machine Heel Seat Fitter Name Role Phone Luciano Skinner MD Primary Care Provider Katherine Blake Bourgeois MD Primary Care Provider Unavail able Celina Mann DO Primary Care Pro vider Unavailable Mercedes Han MD Primary Care Provider [phone] Celina Mann DO Primary Care Pro vider Unavailable Mercedes Han MD Primary Care Provider + [phone] Callum Hernandez DO Primary Care Provider Katherine Lopez Aragon MD Primary Care Provider UnaBuddy Castellanos NP Primary Care Provider Unavail able [facility], Pcp Primary Care Provider UnavailBuddy Stephen NP Primary Care Provider Unavail able Encounter Details Date Type Department Care Team Description 12/21/2011 Pt. Non Urgent Medical Question Adult Medicine [address] [address] Luciano Skinner MD Social History Tobacco Use [...] Progress Notes * Amalia Garcia M.A. - 12/21/2011 10:56 AM EDTFrom: NEREIDA GODDARD To: Luciano Skinner MD Sent: SatDec 21, 2011 10:53 AM Subject: MRI I returned home yesterday from vac. and I got your message, I can not tell you how relieved I am. Iguess my anxiety is making me crazy? my question is do I keep my appointment with Dr. Marion Luna (Neurologist) on December 26,? Thank you Arianna Goddard documented in this encounter Plan of Treatment Not on file documented as of this encounter Visit Diagnoses Not on filedocumented in this encounter Care Teams Machine Heel Seat Fitter Relationship Specialty Start Date End Date Luciano Skinner MD PCP - General 12/13/10 05/10/14 Blake Rivera MD PCP - General Internal Medicine 05/11/14 03/03/15 Celina Mann DO PCP - General Internal Medicine 03/04/15 02/06/16 Mercedes Han MD [address] [place] [address] PCP - General Internal Medicine 02/07/16 03/20/16 Celina Mann DO PCP - General Internal Medicine 03/21/16 11/23/20 Mercedes Han MD [address] [place] [address] PCP - General Internal Medicine 11/24/20 01/11/21 Callum Hernandez, [address] [place] [address] PCP - General Internal Medicine 01/12/21 03/19/21 Lopez Brennan MD [address] [place] [address] PCP - General Internal Medicine 03/20/21 10/19/21 Buddy Shaw NP [address] [place] [address] PCP - General Family Practice 10/20/21 01/04/22 [facility], [address] [address] PCP - General Internal Medicine 01/05/22 11/28/22 Buddy Shaw NP [address] [place] [address] PCP - General Family Practice 11/29/22 documented as of this encounter
--- OUTSIDE RECORDS SUMMARY | 2024-08-26 14:10 | XMS_ITS | Encounter Summary ---
Author Organization [facility] Address [address] [place] [address] Care Team Providers Care Ware Carrier Name Role Phone Luciano Skinner MD Primary Care Provider Katherine Blake Bourgeois MD Primary Care Provider Unavail able Celina Mann DO Primary Care Pro vider Unavailable Mercedes Han MD Primary Care Provider + [phone] Celina Mann DO Primary Care Pro vider Unavailable Mercedes Han MD Primary Care Provider + [phone] Callum Hernandez DO Primary Care Provider Katherine Lopez Aragon MD Primary Care Provider UnaBuddy Castellanos NP Primary Care Provider Unavail able [facility], Pcp Primary Care Provider UnavailBuddy Stephen NP Primary Care Provider Unavail able Encounter Details Date Type Department Care Team Description 11/05/2012 Hospital Medical Records [address] [place] [address] Lux Dodge Social History Tobacco Use Types [...] on filedocumented in this encounter Care Teams Ware Carrier Relationship Specialty Start Date End Date Brody, Luciano M., MD PCP - General 12/13/10 05/10/14 Blake Rivera MD PCP - General Internal Medicine 05/11/14 03/03/15 Celina Mann, PCP - General Internal Medicine 03/04/15 02/06/16 Mercedes Han MD [address] [place] [address] PCP - General Internal Medicine 02/07/16 03/20/16 Celina Mann, PCP - General Internal Medicine 03/21/16 11/23/20 Mercedes Han MD [address] [place] [address] PCP - General Internal Medicine 11/24/20 01/11/21 Callum Hernandez DO [address] [place] [address] PCP - General Internal Medicine 01/12/21 03/19/21 Lopez Brennan MD [address] [place] [address] PCP - General Internal Medicine 03/20/21 10/19/21 Buddy Shaw NP [address] [place] [address] PCP - General Family Practice 10/20/21 01/04/22 [facility], Pcp [address] [place] [address] PCP - General Internal Medicine 01/05/22 11/28/22 Buddy Shaw NP [address] [place] [address] PCP - General Family Practice 11/29/22 documented as of this encounter
--- OUTSIDE RECORDS SUMMARY | 2024-08-26 14:10 | XMS_ITS | Encounter Summary ---
Author Organization [facility] Address [address] [place] [address] Care Team Providers Care Gluer Machine Setup Operator Name Role Phone Luciano Skinner MD Primary Care Provider Katherine Javed Lindsay MD Primary Care Provider UnaBlake Traore MD Primary Care Provider Unavail able Celina Mann DO Primary Care Pro vider Unavailable Mercedes Han MD Primary Care Provider + [phone] Celina Mann DO Primary Care Pro vider Unavailable Mercedes Han MD Primary Care Provider + [phone] Callum Hernandez DO Primary Care Provider Lopez Lu MD Primary Care Provider Buddy Foy NP Primary Care Provider Unavail able [facility], [facility] Primary Care Provider UnavailBuddy Stephen NP Primary Care Provider Unavail able Encounter Details Date Type Department Care Team Description 12/12/2005 Hospital Medical Records [address] [place] [address] Olvin Joseph MD Social History Tobacco Use [...] on filedocumented in this encounter Care Teams Gluer Machine Setup Operator Relationship Specialty Start Date End Date Luciano Skinner MD PCP - General 12/13/10 05/10/14 Javed Kulkarni MD PCP - General 03/15/00 12/12/10 Blake Rivera MD PCP - General Internal Medicine 05/11/14 03/03/15 Celina Mann, PCP - General Internal Medicine 03/04/15 02/06/16 Mercedes Han MD [address] [place] [address] PCP - General Internal Medicine 02/07/16 03/20/16 Celina Mann, PCP - General Internal Medicine 03/21/16 11/23/20 Merecdes Han MD [address] [place] [address] 29366 PCP - General Internal Medicine 11/24/20 01/11/21 Callum Hernandez, [address] [place] [address] 80983 PCP - General Internal Medicine 01/12/21 03/19/21 Lopez Brennan MD [address] [place] [address] 87367 PCP - General Internal Medicine 03/20/21 10/19/21 Buddy Shaw NP [address] [place] [address] 78972 PCP - General Family Practice 10/20/21 01/04/22 [facility], Pcp [address] [place] [address] 01599 PCP - General Internal Medicine 01/05/22 11/28/22 Buddy Shaw NP [address] [place] [address] 49096 PCP - General Family Practice 11/29/22 documented as of this encounter
--- OUTSIDE RECORDS SUMMARY | 2024-08-26 14:10 | XMS_ITS ---
Author Organization [facility] Address [address] [place] [address] Care Team Providers Care Contract Technician Name Role Phone Buddy Bolden Primary Care Provider Unav ailable Leandro Harvey Unavailable [phone] Martinez Encounters Encounter Location Date Provider Diagnosis [facility] [address] [place] [address] 03/10/2024 Leandro Harvey Plan Of Treatment No Information Progress Notes * Nereida MCBRIDE ADOB:[birth year] (69 yo F)Acc No.[id number]:03/10/2024 Progress Note Patient:?Nereida MCRBIDE Provider:?Leandro Harvey DPM :1955???Age:69 Y???Sex:Female D ate:03/10/2024 [...] Harvey DPM Date:?2023 Generated for Gale rogers/Anais/Cassie on:?08/26/2024 02:09 PM EDT
--- OUTSIDE RECORDS SUMMARY | 2024-08-26 14:10 | XMS_ITS | Encounter Summary ---
Author Organization [facility] Address [address] [place] [address] Care Team Providers Care Floor Coverings Salesperson Name Role Phone Blake Rivera MD Primary Care Provider Unavail able Celina Mann DO Primary Care Pro vider Unavailable Mercedes Han MD Primary Care Provider [phone] Celina Mann DO Primary Care Pro vider Unavailable Mercedes Han MD Primary Care Provider [phone] Callum Hernandez DO Primary Care Provider Lopez Lu MD Primary Care Provider Buddy Foy NP Primary Care Provider Unavail [facility] Pcp Primary Care Provider UnavailBuddy Stephen NP Primary Care Provider Unavail able Encounter Details Date Type Department Care Team Description 07/21/2014 DIRECTOR ENTERPRISE DATA ARCHITECTURE/[facility] Report Medical Records [address] [place] [address] Abstract, Provider Social History Tobacco Use Types [...] on filedocumented in this encounter Care Teams Floor Coverings Salesperson Relationship Specialty Start Date End Date Blake Rivera MD PCP - General Internal Medicine 05/11/14 03/03/15 Celina Mann DO PCP - General Internal Medicine 03/04/15 02/06/16 Mercedes Han MD [address] [place] [address] 30702 PCP - General Internal Medicine 02/07/16 03/20/16 Celina Mann DO PCP - General Internal Medicine 03/21/16 11/23/20 Mercedes Han MD [address] [place] [address] 82309 PCP - General Internal Medicine 11/24/20 01/11/21 Callum Hernandez DO [address] [place] [address] 16036 PCP - General Internal Medicine 01/12/21 03/19/21 Lopez Brennan MD [address] [place] [address] 74972 PCP - General Internal Medicine 03/20/21 10/19/21 Buddy Shaw NP [address] [place] [address] 56784 PCP - General Family Practice 10/20/21 01/04/22 [facility], Pcp [address] [place] [address] 95580 PCP - General Internal Medicine 01/05/22 11/28/22 Buddy Shaw NP [address] [place] [address] 81204 PCP - General Family Practice 11/29/22 documented as of this encounter
--- OUTSIDE RECORDS SUMMARY | 2024-08-26 14:10 | XMS_ITS | Encounter Summary ---
Author Organization [facility] Address [address] [place] [address] Care Team Providers Care Bill Board Poster Name Role Phone Celina Mann DO Primary Care Pro vider Unavailable Mercedes Han MD Primary Care Provider [phone] Callum Hernandez DO Primary Care Provider Lopez Lu MD Primary Care Provider Buddy Foy NP Primary Care Provider Unavail [facility] Pcp Primary Care Provider Buddy Marlow NP Primary Care Provider Unavail able Encounter Details Date Type Department Care Team Description 07/17/2016 Product Sales Representative Report Medical Records [address] [place] [address] Leandro Harvey V., DPHawa Social History Tobacco [...] on filedocumented in this encounter Care Teams Bill Board Poster Relationship Specialty Start Date End Date Celina Mann DO PCP - General Internal Medicine 03/21/16 11/23/20 Mercedes Han MD [address] [place] [address] [phone] PCP - General Internal Medicine 11/24/20 01/11/21 Callum Hernandez DO [address] [place] [address] PCP - General Internal Medicine 01/12/21 03/19/21 Lopez Brennan MD [address] [place] [address] 88552 PCP - General Internal Medicine 03/20/21 10/19/21 Buddy Shaw NP [address] [place] [address] 41114 PCP - General Family Practice 10/20/21 01/04/22 [facility], Pcp [address] [place] [address] 52280 PCP - General Internal Medicine 01/05/22 11/28/22 Buddy Shaw NP [address] [place] [address] PCP - General Family Practice 11/29/22 documented as of this encounter
--- OUTSIDE RECORDS SUMMARY | 2024-08-26 14:10 | XMS_ITS | Patient Health Record ---
Author Organization [facility] Address [address] [facility] [place] [address] Care Team Providers Care Wire Weaver Cloth Name Role Phone Buddy Bolden Primary Care Provider Unav ailable Leandro Harvey Unavailable [phone] Allergies Allergen (clinical drug ingredient) Drug/Non Drug [...] W/U Status Risk Notes Problem Tinea unguium (746072674) Tinea unguium (B35.1) Active confirmed Response to treatment,Un resolved Problem Plantar wart (82879700) Plantar wart (B07.0) Active confirmed Vital Signs Height 5ft4in in 03/03/2024 Weight 208 lbs 03/03/2024 BMI 35.7 kg/m2 03/03/2024 Procedures Procedure Date Ordered Date Performed Result Body Sit e 52034-Fcgm Destruction, 1-14 03/03/2024 N/A Encounters Encounter Location Date Provider Diagnosis [facility] [address] 03/03/2024 Leandro Harvey Tinea unguium B35.1 ; Pain in right toe(s) M79.674 ; Pain in left toe(s) M79.675 ; Plantar wart B07.0 and Left foot pain M79.672 [facility] [address] 09/18/2023 Leandro Harvey [facility] [address] 06/05/2024 Leandro Harvey Assessments Encounter Date Diagnosis [...] Treatment Pending Test Test Name Order Date 79806-Iutd Destruction, 1-14 03/03/2024 54374- Removal of Foreign Body, Subcut 1 50,S8533-GHQ TENDON SHEATH/LIGAMENT 1 50,O4547-UOO TENDON SHEATH/LIGAMENT 0 02/15/201462928,R0033-VCA TENDON SHEATH/LIGAMENT 0 02/23/201481357,M5642-DQQ TENDON SHEATH/LIGAMENT 1 Insurance Providers Payer Name Payer Address Payer Phone Subscriber Number Group Number Insured Name Patient Relationship to Insured Coverage Start Date Coverage End Date Medicare National Govt Sv[employer] [address] [place] [address] [id number] Rae Nereida Self - patient is the insured [employer] [address] [place] [address] [phone] [id number] Rae Nereida Self - patient is the insured Medical (General) History Medical History History ICD Code Anxiety Arthritis Back,Hip,and Knee pain sinusitis Measles Mumps Chicken pox Joint implants/screws CAD (Cholesterol) Depression Surgical History Surgery Date(Month/Year) rods in both shoulders Left SQ Plantar Fibroma/S.T. Mass (Unspe c) 09/2014 rotator cuff 2006 colonoscopy
--- OUTSIDE RECORDS SUMMARY | 2024-08-26 14:10 | XMS_ITS | Encounter Summary ---
Author Organization [facility] Address [address] [place] [address] Care Team Providers Care Belt Glass Sander Name Role Phone Luciano Skinner MD Primary Care Provider Katherine Blake Bourgeois MD Primary Care Provider Unavail able Celina Mann DO Primary Care Pro vider Unavailable Mercedes Han MD Primary Care Provider + [phone] Celina Mann DO Primary Care Pro vider Unavailable Mercedes Han MD Primary Care Provider + [phone] Callum Hernandez DO Primary Care Provider Katherine Lopez Aragon MD Primary Care Provider UnaBuddy Castellanos NP Primary Care Provider Unavail able [facility], Pcp Primary Care Provider UnavailBuddy Stephen NP Primary Care Provider Unavail able Encounter Details Date Type Department Care Team Description 12/31/2013 Hospital Medical Records [address] [place] [address] Pamella Rodriguez MD Social History Tobacco Use Types Packs/Day [...] on filedocumented in this encounter Care Teams Belt Glass Sander Relationship Specialty Start Date End Date Luciano Skinner MD PCP - General 12/13/10 05/10/14 Blake Rivera MD PCP - General Internal Medicine 05/11/14 03/03/15 Celina Mann, PCP - General Internal Medicine 03/04/15 02/06/16 Mercedes Han MD [address] [place] [address] PCP - General Internal Medicine 02/07/16 03/20/16 Celina Mann, PCP - General Internal Medicine 03/21/16 11/23/20 Mercedes Han MD [address] [place] [address] 78317 PCP - General Internal Medicine 11/24/20 01/11/21 Callum Hernandez DO [address] [place] [address] 40768 PCP - General Internal Medicine 01/12/21 03/19/21 Lopez Brennan MD [address] [place] [address] 73130 PCP - General Internal Medicine 03/20/21 10/19/21 Buddy Shaw NP [address] [place] [address] 33764 PCP - General Family Practice 10/20/21 01/04/22 [facility], Pcp [address] [place] [address] 16497 PCP - General Internal Medicine 01/05/22 11/28/22 Buddy Shaw NP [address] [place], [place] [phone] PCP - General Family Practice 11/29/22 documented as of this encounter
--- OUTSIDE RECORDS SUMMARY | 2024-08-26 14:10 | XMS_ITS | Encounter Summary ---
Author Organization [facility] Address [address] [place] [address] Care Team Providers Care Faculty Criminal Justice Name Role Phone Celina Mann DO Primary Care Pro vider Unavailable Mercedes Han MD Primary Care Provider [phone] Callum Hernandez DO Primary Care Provider Lopez Lu MD Primary Care Provider Buddy Foy NP Primary Care Provider Unavail able [facility], Pcp Primary Care Provider Buddy Marlow NP Primary Care Provider Unavail able Encounter Details Date Type Department Care Team Description 08/19/2020 Pt. Non Urgent Medic al Question Adult Medicine [address] [address] Celina Mann DO Social History Tobacco Use [...] on filedocumented in this encounter Care Teams Faculty Criminal Justice Relationship Specialty Start Date End Date Celina Mann DO PCP - General Internal Medicine 03/21/16 11/23/20 Mercedes Han MD [address] [place] [address] PCP - General Internal Medicine 11/24/20 01/11/21 Callum Hernandez DO [address] [place] [address] 13516 PCP - General Internal Medicine 01/12/21 03/19/21 Lopez Brennan MD [address] [place] [address] 32578 PCP - General Internal Medicine 03/20/21 10/19/21 Buddy Shaw NP [address] [place] [address] 50494 PCP - General Family Practice 10/20/21 01/04/22 [facility], Pcp [address] [place] [address] PCP - General Internal Medicine 01/05/22 11/28/22 Buddy Shaw NP [address] [place] [address] PCP - General Family Practice 11/29/22 documented as of this encounter
--- OUTSIDE RECORDS SUMMARY | 2024-08-26 14:10 | XMS_ITS | Encounter Summary ---
Author Organization [facility] Address [address] [place] [address] Care Team Providers Care Loom Cleaner Name Role Phone Luciano Skinner MD Primary Care Provider Katherine Blake Bourgeois MD Primary Care Provider Unavail able Celina Mann DO Primary Care Pro vider Unavailable Mercedes Han MD Primary Care Provider + [phone] Celina Mann DO Primary Care Pro vider Unavailable Mercedes Han MD Primary Care Provider + [phone] Callum Hernandez DO Primary Care Provider Katherine Lopez Aragon MD Primary Care Provider UnaBuddy Castellanos NP Primary Care Provider Unavail able [facility], Pcp Primary Care Provider UnavailBuddy Stephen NP Primary Care Provider Unavail able Encounter Details Date Type Department Care Team Description 11/25/2012 Instructor Trainer Canine Service Report Medical Records [address] [place] [address] Jesús Martinez Social History Tobacco Use Types [...] on filedocumented in this encounter Care Teams Loom Cleaner Relationship Specialty Start Date End Date Luciano Skinner MD PCP - General 12/13/10 05/10/14 Blake Rivera MD PCP - General Internal Medicine 05/11/14 03/03/15 Celina Mann, DO PCP - General Internal Medicine 03/04/15 02/06/16 Mercedes Han MD [address] [place] [address]165 PCP - General Internal Medicine 02/07/16 03/20/16 Celina Mann, PCP - General Internal Medicine 03/21/16 11/23/20 Mercedes Han MD [address] [place] [address]38 PCP - General Internal Medicine 11/24/20 01/11/21 Callum Hernandez DO [address] [place] [address] 9[address]38 PCP - General Internal Medicine 01/12/21 03/19/21 Lopez Brennan MD [address] [place] [address] 68164 PCP - General Internal Medicine 03/20/21 10/19/21 Buddy Shaw NP [address] [place] [address] 99984 PCP - General Family Practice 10/20/21 01/04/22 [facility], Pcp [address] [place] [address] 56186 PCP - General Internal Medicine 01/05/22 11/28/22 Buddy Shaw NP [address] [place] [address] 8[address]22 PCP - General Family Practice 11/29/22 documented as of this encounter
--- OUTSIDE RECORDS SUMMARY | 2024-08-26 14:10 | XMS_ITS ---
Author Organization [facility] Address [address] [facility] [place] [address] Care Team Providers Care Belt Weaver Name Role Phone Buddy Bolden Primary Care Provider Unav ailable Leandro Harvey Unavailable [phone] Allergies Allergen (clinical drug ingredient) Drug/Non Drug [...] Active Encounters Encounter Location Date Provider Diagnosis [facility] [address] [place] [address] 06/05/2024 Leandro Harvey Plan Of Treatment No Information Progress Notes * Nereida MCBRIDE ADOB:[birth year] (69 yo F)Acc No.[id number]:06/05/2024 Progress Note Patient:?Nereida MCBRDIE Provider:?Leandro Harvey DPM :1955???Age:69 Y???Sex:Female D ate:06/05/2024 Address:[address] [place], [place] [address] Pcp:DEB Mcclure Subjective: * Chief Complaints: * [...] Provider:Marie Harvey DPM Date:?2024 Generated for Gale rogers/Anasi/Cassie on:?08/26/2024 02:09 PM EDT
--- OUTSIDE RECORDS SUMMARY | 2024-08-26 14:10 | XMS_ITS | Encounter Summary ---
Author Organization [facility] Address [address] [place] [address] Care Team Providers Care Application Support Technician Name Role Phone Celina Mann DO Primary Care Pro vider Unavailable Mercedes Han MD Primary Care Provider [phone] Callum Hernandez DO Primary Care Provider Lopez Lu MD Primary Care Provider Buddy Foy NP Primary Care Provider Unavail able [facility] Pcp Primary Care Provider Buddy Marlow NP Primary Care Provider Unavail able Encounter Details Date Type Department Care Team Description 05/08/2016 Pt. Non Urgent Medic al Question Physiatry - Mode [address] [place] [address] Sammy Mcintyre DO Social History Tobacco Use Types Packs/Day [...] Progress Notes * Marielena Garcia M.A. - 05/08/2016 2:30 PM ESTFrom: Nereida Goddard To: Sammy Mcintyre DO Sent: 05/08/2016 1:39 PM EST Subject: fingers locking Dear Dr. Mcintyre I have been experiencing pain and locking of my fingers in my left hand. it has been about 3 months. and getting worse. My hand writing is deteriorating. I write all day and am on a computer. I have nodules in both hands. I was wondering if a cortisone shot would help. Sincerely Arianna Goddard documented in this encounter Plan of Treatment Not on file documented as of this encounter Visit Diagnoses Not on filedocumented in this encounter Care Teams Application Support Technician Relationship Specialty Start Date End Date Celina Mann DO PCP - General Internal Medicine 03/21/16 11/23/20 Mercedes Han MD [address] [place] [address] PCP - General Internal Medicine 11/24/20 01/11/21 Callum Hernandez DO [address] [place] [address] PCP - General Internal Medicine 01/12/21 03/19/21 Lopez Brennan MD [address] [place] [address] PCP - General Internal Medicine 03/20/21 10/19/21 Buddy Shaw NP [address] [place] [address] PCP - General Family Practice 10/20/21 01/04/[address] [address] PCP - General Internal Medicine 01/05/22 11/28/22 Buddy Shaw NP [address] [place] [address]270 PCP - General Family Practice 11/29/22 documented as of this encounter
--- OUTSIDE RECORDS SUMMARY | 2024-08-26 14:10 | XMS_ITS | Encounter Summary ---
Author Organization [facility] Address [address] [place] [address] Care Team Providers Care Respiratory Manager Name Role Phone Luciano Skinner MD Primary Care Provider Katherine Blake Bourgeois MD Primary Care Provider Unavail able Celina Mann DO Primary Care Pro vider Unavailable Mercedes Han MD Primary Care Provider [phone] Celina Mann DO Primary Care Pro vider Unavailable Mercedes Han MD Primary Care Provider [phone] Callum Hernandez DO Primary Care Provider Katherine Lopez Aragon MD Primary Care Provider UnaBuddy Castellanos NP Primary Care Provider Unavail able [facility], Pcp Primary Care Provider UnavailBuddy Stephen NP Primary Care Provider Unavail able Encounter Details Date Type Department Care Team Description 09/19/2012 Pt. Non Urgent Medical Question Adult Medicine [address] [address] Luciano Skinner MD Social History Tobacco Use [...] on filedocumented in this encounter Care Teams Respiratory Manager Relationship Specialty Start Date End Date Luciano Skinner MD PCP - General 12/13/10 05/10/14 Blake Rivera MD PCP - General Internal Medicine 05/11/14 03/03/15 Celina Mann, PCP - General Internal Medicine 03/04/15 02/06/16 Mercedes Han MD [address] [place] [address] PCP - General Internal Medicine 02/07/16 03/20/16 Celina Mann, PCP - General Internal Medicine 03/21/16 11/23/20 Mercedes Han MD [address] [place] [address]013 PCP - General Internal Medicine 11/24/20 01/11/21 Callum Hernandez DO [address] [place] [address] PCP - General Internal Medicine 01/12/21 03/19/21 Lopez Brennan MD [address] [place] [address] 50067 PCP - General Internal Medicine 03/20/21 10/19/21 Buddy Shaw NP [address] [place] [address]18 PCP - General Family Practice 10/20/21 01/04/22 [facility], [address] [address] PCP - General Internal Medicine 01/05/22 11/28/22 Buddy Shaw NP [address] [place] [address] PCP - General Family Practice 11/29/22 documented as of this encounter
--- OUTSIDE RECORDS SUMMARY | 2024-08-26 14:10 | XMS_ITS | Encounter Summary ---
Author Organization [facility] Address [address] [place] [address] Care Team Providers Care Materials Supervisor Name Role Phone Luciano Skinner MD Primary Care Provider Katherine Blake Bourgeois MD Primary Care Provider Unavail able Celina Mann DO Primary Care Pro vider Unavailable Mercedes Han MD Primary Care Provider + [phone] Celina Mann DO Primary Care Pro vider Unavailable Mercedes Han MD Primary Care Provider + [phone] Callum Hernandez DO Primary Care Provider Katherine Lopez Aragon MD Primary Care Provider UnaBuddy Castellanos NP Primary Care Provider Unavail able [facility], Pcp Primary Care Provider UnavailBuddy Stephen NP Primary Care Provider Unavail able Encounter Details Date Type Department Care Team Description 04/18/2011 Sports Announcer Report Medical Records [address] [place] [address] Chi Pierre Social History Tobacco Use Types [...] on filedocumented in this encounter Care Teams Materials Supervisor Relationship Specialty Start Date End Date Luciano Skinner MD PCP - General 12/13/10 05/10/14 Blake Rivera MD PCP - General Internal Medicine 05/11/14 03/03/15 Celina Mann, PCP - General Internal Medicine 03/04/15 02/06/16 Mercedes Han MD [address] [place] [address] PCP - General Internal Medicine 02/07/16 03/20/16 Celina Mann, PCP - General Internal Medicine 03/21/16 11/23/20 Mercedes Han MD [address] [place] [address] PCP - General Internal Medicine 11/24/20 01/11/21 Callum Hernandez DO [address] [place] [address]19 PCP - General Internal Medicine 01/12/21 03/19/21 Lopez Brennan MD [address] [place] [address]883 PCP - General Internal Medicine 03/20/21 10/19/21 Buddy Shaw NP [address] [place] [address] 165[address] PCP - General Family Practice 10/20/21 01/04/22 [facility], Pcp [address] [place] [address] PCP - General Internal Medicine 01/05/22 11/28/22 Buddy Shaw NP [address] [place] [address] PCP - General Family Practice 11/29/22 documented as of this encounter
--- OUTSIDE RECORDS SUMMARY | 2024-08-26 14:10 | XMS_ITS | Encounter Summary ---
Author Organization [facility] Address [address] [place] [address] Care Team Providers Care Bank President Name Role Phone Luciano Skinner MD Primary Care Provider Katherine Blake Bourgeois MD Primary Care Provider Unavail able Celina Mann DO Primary Care Pro vider Unavailable Mercedes Han MD Primary Care Provider + [phone] Celina Mann DO Primary Care Pro vider Unavailable Mercedes Han MD Primary Care Provider + [phone] Callum Hernandez DO Primary Care Provider Katherine Lopez Aragon MD Primary Care Provider UnaBuddy Castellanos NP Primary Care Provider Unavail able [facility], Pcp Primary Care Provider UnavailBuddy Stephen NP Primary Care Provider Unavail able Encounter Details Date Type Department Care Team Description 04/26/2014 Brattice Builder Report Medical Records [address] [place] [address] 29018 Nilton Kumar Social History Tobacco Use Types [...] on filedocumented in this encounter Care Teams Bank President Relationship Specialty Start Date End Date Luciano Skinner MD PCP - General 12/13/10 05/10/14 Blake Rivera MD PCP - General Internal Medicine 05/11/14 03/03/15 Celina Mann, PCP - General Internal Medicine 03/04/15 02/06/16 Mercedes Han MD [address] [place] [address] 95985 PCP - General Internal Medicine 02/07/16 03/20/16 Celina Mann, PCP - General Internal Medicine 03/21/16 11/23/20 Mercedes Han MD [address] [place] [address] 75553 PCP - General Internal Medicine 11/24/20 01/11/21 Callum Hernandez DO [address] [place] [address] 52571 PCP - General Internal Medicine 01/12/21 03/19/21 Lopez Brennan MD [address] [place] [address] 49474 PCP - General Internal Medicine 03/20/21 10/19/21 Buddy Shaw NP [address] [place] [address] 72320 PCP - General Family Practice 10/20/21 01/04/22 [facility], Pcp [address] [place] [address] 13895 PCP - General Internal Medicine 01/05/22 11/28/22 Buddy Shaw NP [address] [place] [address] 71400 PCP - General Family Practice 11/29/22 documented as of this encounter
--- OUTSIDE RECORDS SUMMARY | 2024-08-26 14:10 | XMS_ITS | Clinical Summary ---
Author Organization [facility] Address [address] [place] [address] Care Team Providers Care University Registrar Name Role Phone Buddy Shaw NP Primary Care Provider [phone] Surgical History Surgery Date Site/Laterality Comments ROTATOR [...] Recently Relevant to Health Maintenance Care Teams University Registrar Relationship Specialty Start Date End Date Buddy Shaw, MANAGER PAPER [address] [place], [place] PCP - General 11/29/22
--- OUTSIDE RECORDS SUMMARY | 2024-08-26 14:10 | XMS_ITS | Encounter Summary ---
Author Organization [facility] Address [address] [place] [address] Care Team Providers Care Scenario Writer Name Role Phone Luciano Skinner MD Primary Care Provider Katherine Blake Bourgeois MD Primary Care Provider Unavail able Celina Mann DO Primary Care Pro vider Unavailable Mercedes Han MD Primary Care Provider + [phone] Celina Mann DO Primary Care Pro vider Unavailable Mercedes Han MD Primary Care Provider + [phone] Callum Hernandez DO Primary Care Provider Katherine Lopez Aragon MD Primary Care Provider UnaBuddy Castellanos NP Primary Care Provider Unavail able [facility], Pcp Primary Care Provider UnavailBuddy Stephen NP Primary Care Provider Unavail able Encounter Details Date Type Department Care Team Description 04/23/2014 Credit Control Manager Report Medical Records [address] [place] [address] 12683 Leandro Harvey V., DPM Social History Tobacco [...] on filedocumented in this encounter Care Teams Scenario Writer Relationship Specialty Start Date End Date Luciano Skinner MD PCP - General 12/13/10 05/10/14 Blake Rivera MD PCP - General Internal Medicine 05/11/14 03/03/15 Celina Mann, PCP - General Internal Medicine 03/04/15 02/06/16 Mercedes Han MD [address] [place] [address] PCP - General Internal Medicine 02/07/16 03/20/16 Celina Mann, PCP - General Internal Medicine 03/21/16 11/23/20 Mercedes Han MD [address] [place] [address] PCP - General Internal Medicine 11/24/20 01/11/21 Callum Hernandez DO [address] [place] [address] 34197 PCP - General Internal Medicine 01/12/21 03/19/21 Lopez Brennan MD [address] [place] [address] 43029 PCP - General Internal Medicine 03/20/21 10/19/21 Buddy Shaw NP [address] [place] [address] 40480 PCP - General Family Practice 10/20/21 01/04/22 [facility], [address] [address] PCP - General Internal Medicine 01/05/22 11/28/22 Buddy Shaw NP [address] [place] [address] 72973 PCP - General Family Practice 11/29/22 documented as of this encounter
--- OUTSIDE RECORDS SUMMARY | 2024-08-26 14:10 | XMS_ITS | Encounter Summary ---
Author Organization [facility] Address [address] [place] [address] Care Team Providers Care Cat Hooker Name Role Phone Luciano Skinner MD Primary Care Provider Katherine Blake Bourgeois MD Primary Care Provider Unavail able Celina Mann DO Primary Care Pro vider Unavailable Mercedes Han MD Primary Care Provider + [phone] Celina Mann DO Primary Care Pro vider Unavailable Mercedes Han MD Primary Care Provider + [phone] Callum Hernandez DO Primary Care Provider Katherine Lopez Aragon MD Primary Care Provider UnaBuddy Castellanos NP Primary Care Provider Unavail able [facility], Pcp Primary Care Provider UnavailBuddy Stephen NP Primary Care Provider Unavail able Encounter Details Date Type Department Care Team Description 12/31/2013 Hospital Medical Records [address] [place] [address] Pamella Rodriguez MD Social History Tobacco Use [...] on filedocumented in this encounter Care Teams Cat Hooker Relationship Specialty Start Date End Date Luciano Skinner MD PCP - General 12/13/10 05/10/14 Blake Rivera MD PCP - General Internal Medicine 05/11/14 03/03/15 Celina Mann, PCP - General Internal Medicine 03/04/15 02/06/16 Mercedes Han MD [address] [place] [address] PCP - General Internal Medicine 02/07/16 03/20/16 Celina Mann, PCP - General Internal Medicine 03/21/16 11/23/20 Mercedes Han MD [address] [place] [address] 52342 PCP - General Internal Medicine 11/24/20 01/11/21 Callum Hernandez DO [address] [place] [address] 69741 PCP - General Internal Medicine 01/12/21 03/19/21 Lopez Brennan MD [address] [place] [address] 53828 PCP - General Internal Medicine 03/20/21 10/19/21 Buddy Shaw NP [address] [place] [address] 43050 PCP - General Family Practice 10/20/21 01/04/22 [facility], Pcp [address] [place] [address] 74441 PCP - General Internal Medicine 01/05/22 11/28/22 Buddy Shaw NP [address] [place], [place] [phone] PCP - General Family Practice 11/29/22 documented as of this encounter
--- OUTSIDE RECORDS SUMMARY | 2024-08-26 14:10 | XMS_ITS | Encounter Summary ---
Author Organization [facility] Address [address] [place] [address] Care Team Providers Care Fire Department Marine Engineer Name Role Phone Celina Mann DO Primary Care Pro vider Unavailable Mercedes Han MD Primary Care Provider [phone] Callum Hernandez DO Primary Care Provider Lopez Lu MD Primary Care Provider Buddy Foy NP Primary Care Provider Unavail able [facility], Pcp Primary Care Provider UnavailBuddy Stephen NP Primary Care Provider Unavail able Reason for Visit * Reason Onset Date Comments President And Chief Operating Officer Feedback 07/28/2018 PVC Encounter Details Date Type Department Care Team Description 07/28/2018 Telephone Adult Medicine [address] [address] Celina Mann DO President And Chief Operating Officer Feedback (PVC) Social History Tobacco Use Types Packs/Day Years [...] encounter Miscellaneous Notes * Telephone Encounter - Javed Mayorga - 07/28/2018 4:09 PM EST No insurance referral required per patient's insurance. Order faxed [facility] [phone] and office notes can be pulled from the office by Epic Link [facility] Cardiology [phone] Notification letter mailed to patient, PVC will contact patient with appointment information documented in this encounter Plan of Treatment Not on file documented as of this encounter Visit Diagnoses Not on filedocumented in this encounter Care Teams Fire Department Marine Engineer Relationship Specialty Start Date End Date Celina Mann DO PCP - General Internal Medicine 03/21/16 11/23/20 Mercedes Han MD [address] [place], [place] [phone] PCP - General Internal Medicine 11/24/20 01/11/21 Callum Hernandez DO [address] [place] [address] 33162 PCP - General Internal Medicine 01/12/21 03/19/21 Lopez Brennan MD [address] [place] [address] 62925 PCP - General Internal Medicine 03/20/21 10/19/21 Buddy Shaw NP [address] [place] [address] 28715 PCP - General Family Practice 10/20/21 01/04/[address] [address] PCP - General Internal Medicine 01/05/22 11/28/22 Buddy Shaw NP [address] [place] [address] 27429 PCP - General Family Practice 11/29/22 documented as of this encounter
--- OUTSIDE RECORDS SUMMARY | 2024-08-26 14:10 | XMS_ITS | Encounter Summary ---
Author Organization [facility] Address [address] [place] [address] Care Team Providers Care Marble Carver Name Role Phone Luciano Skinner MD Primary Care Provider Katherine Javed Lindsay MD Primary Care Provider UnaBlake Traore MD Primary Care Provider Unavail able Celina Mann DO Primary Care Pro vider Unavailable Mercedes Han MD Primary Care Provider + [phone] Celina Mann DO Primary Care Pro vider Unavailable Mercedes Han MD Primary Care Provider + [phone] Callum Hernandez DO Primary Care Provider Katherine Lopez Aragon MD Primary Care Provider Buddy Foy NP Primary Care Provider Unavail able [facility] Primary Care Provider UnavailBuddy Stephen NP Primary Care Provider Unavail able Encounter Details Date Type Department Care Team Description 06/28/2010 Pm Technician Report Medical Records [address] [place] [address] Chi Pierre Social History Tobacco Use Types [...] on filedocumented in this encounter Care Teams Marble Carver Relationship Specialty Start Date End Date Brody, Luciano M., MD PCP - General 12/13/10 05/10/14 Javed Kulkarni MD PCP - General 03/15/00 12/12/10 Blake Rivera MD PCP - General Internal Medicine 05/11/14 03/03/15 Celina Mann, PCP - General Internal Medicine 03/04/15 02/06/16 Mercedes Han MD [address] [place] [address] PCP - General Internal Medicine 02/07/16 03/20/16 Celina Mann, DO PCP - General Internal Medicine 03/21/16 11/23/20 Mercedes Han MD [address] [place] [address] 11624 PCP - General Internal Medicine 11/24/20 01/11/21 Callum Hernandez DO [address] [place], [place] [phone] PCP - General Internal Medicine 01/12/21 03/19/21 Lopez Brennan MD [address] [place] [address] 43368 PCP - General Internal Medicine 03/20/21 10/19/21 Buddy Shaw NP [address] [place] [address] 02614 PCP - General Family Practice 10/20/21 01/04/22 [facility], Pcp [address] [place] [address] 40877 PCP - General Internal Medicine 01/05/22 11/28/22 Buddy Shaw NP [address] [place] [address] 62756 PCP - General Family Practice 11/29/22 documented as of this encounter
--- OUTSIDE RECORDS SUMMARY | 2024-08-26 14:10 | XMS_ITS | Encounter Summary ---
Author Organization [facility] Address [address] [place] [address] Care Team Providers Care Job Coaching Name Role Phone Celina Mann DO Primary Care Pro vider Unavailable Mercedes Han MD Primary Care Provider [phone] Callum Hernandez DO Primary Care Provider Lopez Lu MD Primary Care Provider Buddy Foy NP Primary Care Provider Unavail [facility] Pcp Primary Care Provider Buddy Marlow NP Primary Care Provider Unavail able Encounter Details Date Type Department Care Team Description 04/27/2018 Release of Information Medical Records [address] [place] [address]2001 Abstract, Provider Social History Tobacco Use Types [...] on filedocumented in this encounter Care Teams Job Coaching Relationship Specialty Start Date End Date Celina Mann DO PCP - General Internal Medicine 03/21/16 11/23/20 Mercedes Han MD [address] [place] [address] 31401 PCP - General Internal Medicine 11/24/20 01/11/21 Callum Hernandez DO [address] [place] [address] 94048 PCP - General Internal Medicine 01/12/21 03/19/21 Lopez Brennan MD [address] [place] [address] 21809 PCP - General Internal Medicine 03/20/21 10/19/21 Buddy Shaw NP [address] [place] [address] 03826 PCP - General Family Practice 10/20/21 01/04/22 [facility], Pcp [address] [place] [address] 90336 PCP - General Internal Medicine 01/05/22 11/28/22 Buddy Shaw NP [address] [place], [place] [address] PCP - General Family Practice 11/29/22 documented as of this encounter
--- OUTSIDE RECORDS SUMMARY | 2024-08-26 14:10 | XMS_ITS | Encounter Summary ---
Author Organization [facility] Address [address] [place] [address] Care Team Providers Care Bilingual Sales Assistant Name Role Phone Luciano Skinner MD Primary Care Provider Katherine Blake Bourgeois MD Primary Care Provider Unavail able Celina Mann DO Primary Care Pro vider Unavailable Mercedes Han MD Primary Care Provider + [phone] Celina Mann DO Primary Care Pro vider Unavailable Mercedes Han MD Primary Care Provider + [phone] Callum Hernandez DO Primary Care Provider Katherine Lopez Aragon MD Primary Care Provider UnaBuddy Castellanos NP Primary Care Provider Unavail able [facility], Pcp Primary Care Provider UnavailBuddy Stephen NP Primary Care Provider Unavail able Encounter Details Date Type Department Care Team Description 06/07/2012 Pt. Non Urgent Medical Question Physiatry - [place] [address] [place] [address] 41036 Sammy Mcintyre DO Lumbar radiculitis (Primary Dx) [...] unspecified documented in this encounter Care Teams Bilingual Sales Assistant Relationship Specialty Start Date End Date Luciano Skinner MD PCP - General 12/13/10 05/10/14 Blake Rivera MD PCP - General Internal Medicine 05/11/14 03/03/15 Celina Mann DO PCP - General Internal Medicine 03/04/15 02/06/16 Mercedes Han MD [address] [place] [address] 71204 PCP - General Internal Medicine 02/07/16 03/20/16 Celina Mann DO PCP - General Internal Medicine 03/21/16 11/23/20 Mercedes Han MD [address] [place] [address] 83370 PCP - General Internal Medicine 11/24/20 01/11/21 Callum Hernandez DO [address] [place] [address] 15368 PCP - General Internal Medicine 01/12/21 03/19/21 Lopez Brennan MD [address] [place] [address] PCP - General Internal Medicine 03/20/21 10/19/21 Buddy Shaw NP [address] [place] [address] 49022 PCP - General Family Practice 10/20/21 01/04/22 [facility], Pcp [address] [place] [address] 76189 PCP - General Internal Medicine 01/05/22 11/28/22 Buddy Shaw NP [address] [place] [address] 31900 PCP - General Family Practice 11/29/22 documented as of this encounter
--- OUTSIDE RECORDS SUMMARY | 2024-08-26 14:11 | XMS_ITS | Encounter Summary ---
Author Organization [facility] Address [address] [place] [address] Care Team Providers Care Hot Room Attendant Name Role Phone Luciano Skinner MD Primary Care Provider Katherine Blake Bourgeois MD Primary Care Provider Unavail able Celina Mann DO Primary Care Pro vider Unavailable Mercedes Han MD Primary Care Provider + [phone] Celina Mann DO Primary Care Pro vider Unavailable Mercedes Han MD Primary Care Provider + [phone] Callum Hernandez DO Primary Care Provider Katherine Lopez Aragon MD Primary Care Provider UnaBuddy Castellanos NP Primary Care Provider Unavail able [facility], Pcp Primary Care Provider UnavailBuddy Stephen NP Primary Care Provider Unavail able Encounter Details Date Type Department Care Team Description 08/26/2012 Hospital Medical Records [address] [place] [address] Pamela Shahid DO Social History Tobacco Use [...] on filedocumented in this encounter Care Teams Hot Room Attendant Relationship Specialty Start Date End Date Luciano Skinner MD PCP - General 12/13/10 05/10/14 Blake Rivera MD PCP - General Internal Medicine 05/11/14 03/03/15 Celina Mann, PCP - General Internal Medicine 03/04/15 02/06/16 Mercedes Han MD [address] [place] [address] 80723 PCP - General Internal Medicine 02/07/16 03/20/16 Celina Mann, PCP - General Internal Medicine 03/21/16 11/23/20 Mercedes Han MD [address] [place] [address] 13266 PCP - General Internal Medicine 11/24/20 01/11/21 Callum Hernandez DO [address] [place] [address] 75276 PCP - General Internal Medicine 01/12/21 03/19/21 Lopez Brennan MD [address] [place] [address] 02300 PCP - General Internal Medicine 03/20/21 10/19/21 Buddy Shaw NP [address] [place] [address] 42277 PCP - General Family Practice 10/20/21 01/04/22 [facility], [address] [address] PCP - General Internal Medicine 01/05/22 11/28/22 Buddy Shaw NP [address] [place] [address] 51664 PCP - General Family Practice 11/29/22 documented as of this encounter
--- OUTSIDE RECORDS SUMMARY | 2024-08-26 14:11 | XMS_ITS | Encounter Summary ---
Author Organization [facility] Address [address] [place] [address] Care Team Providers Care Warehouse Guard Name Role Phone Blake Rivera MD Primary Care Provider Unavail able Celina Mann DO Primary Care Pro vider Unavailable Mercedes Han MD Primary Care Provider [phone] Celina Mann DO Primary Care Pro vider Unavailable Mercedes Han MD Primary Care Provider [phone] Callum Hernandez DO Primary Care Provider Lopez Lu MD Primary Care Provider Buddy Foy NP Primary Care Provider Unavail [facility] Pcp Primary Care Provider UnavailBuddy Stephen NP Primary Care Provider Unavail able Encounter Details Date Type Department Care Team Description 08/30/2014 Quality Control Chemist Report Medical Records [address] [place] [address]65[address] Leandro Harvey V., DPM Social History Tobacco [...] on filedocumented in this encounter Care Teams Warehouse Guard Relationship Specialty Start Date End Date Blake Rivera MD PCP - General Internal Medicine 05/11/14 03/03/15 Celina Mann DO PCP - General Internal Medicine 03/04/15 02/06/16 Mercedes Han MD [address] [place] [address] 48522 PCP - General Internal Medicine 02/07/16 03/20/16 Celina Mann, PCP - General Internal Medicine 03/21/16 11/23/20 Mercedes Han MD [address] [place] [address] 08973 PCP - General Internal Medicine 11/24/20 01/11/21 Callum Hernandez DO [address] [place] [address] 04740 PCP - General Internal Medicine 01/12/21 03/19/21 Lopez Brennan MD [address] [place] [address] 41229 PCP - General Internal Medicine 03/20/21 10/19/21 Buddy Shaw NP [address] [place] [address] 27881 PCP - General Family Practice 10/20/21 01/04/22 [facility], Pcp [address] [place] [address] 78327 PCP - General Internal Medicine 01/05/22 11/28/22 Buddy Shaw NP [address] [place] [address] 68035 PCP - General Family Practice 11/29/22 documented as of this encounter
--- OUTSIDE RECORDS SUMMARY | 2024-08-26 14:11 | XMS_ITS | Encounter Summary ---
Author Organization [facility] Address [address] [place] [address] Care Team Providers Care Orthopedic Physician Name Role Phone Luciano Skinner MD Primary Care Provider Katherine Javed Lindsay MD Primary Care Provider UnaBlake Traore MD Primary Care Provider Unavail able Celina Mann DO Primary Care Pro vider Unavailable Mercedes Han MD Primary Care Provider + [phone] Celina Mann DO Primary Care Pro vider Unavailable Mercedes Han MD Primary Care Provider + [phone] Callum Hernandez DO Primary Care Provider Lopez Lu MD Primary Care Provider Buddy Foy NP Primary Care Provider Unavail able [facility] Primary Care Provider UnavailBuddy Stephen NP Primary Care Provider Unavail able Encounter Details Date Type Department Care Team Description 08/03/2008 Hospital Medical Records [address] [place] [address] Chi Pierre Social History Tobacco Use Types [...] on filedocumented in this encounter Care Teams Orthopedic Physician Relationship Specialty Start Date End Date Luciano Skinner MD PCP - General 12/13/10 05/10/14 Javed Kulkarni MD PCP - General 03/15/00 12/12/10 Blake Rivera MD PCP - General Internal Medicine 05/11/14 03/03/15 Celina Mann, PCP - General Internal Medicine 03/04/15 02/06/16 Mercedes Han MD [address] [place] [address] 43547 PCP - General Internal Medicine 02/07/16 03/20/16 Celina Mann, PCP - General Internal Medicine 03/21/16 11/23/20 Mercedes Han MD [address] [place] [address] 31765 PCP - General Internal Medicine 11/24/20 01/11/21 Callum Hernandez, [address] [place] [address] 06328 PCP - General Internal Medicine 01/12/21 03/19/21 Lopez Brennan MD [address] [place] [address] 04767 PCP - General Internal Medicine 03/20/21 10/19/21 Buddy Shaw NP [address] [place] [address] 18013 PCP - General Family Practice 10/20/21 01/04/22 [facility], Pcp [address] [place] [address] 62526 PCP - General Internal Medicine 01/05/22 11/28/22 Buddy Shaw NP [address] [place] [address] 96773 PCP - General Family Practice 11/29/22 documented as of this encounter
--- OUTSIDE RECORDS SUMMARY | 2024-08-26 14:11 | XMS_ITS | Encounter Summary ---
Author Organization [employer] [facility] Address [address] [place] [address] Care Team Providers Care Psychopaedic Nurse Name Role Phone Celina Mann DO Primary Care Pro vider Unavailable Mercedes Han MD Primary Care Provider [phone] Callum Hernandez DO Primary Care Provider Lopez Lu MD Primary Care Provider Buddy Foy NP Primary Care Provider Unavail [facility] Pcp Primary Care Provider Buddy Marlow NP Primary Care Provider Unavail able Encounter Details Date Type Department Care Team Description 11/02/2016 Architecture Instructor Report Medical Records [address] [place] [address] Tristen Díaz MD Social History Tobacco Use [...] on filedocumented in this encounter Care Teams Psychopaedic Nurse Relationship Specialty Start Date End Date Celina Mann DO PCP - General Internal Medicine 03/21/16 11/23/20 Mercedes Han MD [address] [place] [address] PCP - General Internal Medicine 11/24/20 01/11/21 Callum Hernandez DO [address] [place] [address] 82853 PCP - General Internal Medicine 01/12/21 03/19/21 Lopez Brennan MD [address] [place] [address] 44818 PCP - General Internal Medicine 03/20/21 10/19/21 Buddy Shaw NP [address] [place] [address] 57936 PCP - General Family Practice 10/20/21 01/04/22 [facility], Pcp [address] [place] [address] 21836 PCP - General Internal Medicine 01/05/22 11/28/22 Buddy Shaw NP [address] [place], [place] [phone] PCP - General Family Practice 11/29/22 documented as of this encounter
== END 2024-08-26 11:36 | disposition home or self-care (01) ==
LOC: HO.NEURO 11:35
PROVIDERS: Visit Provider Orthopaedic Surgery
DX: R20.0 Anesthesia of skin (principal); R20.2 Paresthesia of skin
CPT/HCPCS: 95886; 95911

== ENCOUNTER → 2024-08-26 11:38 | Outpatient (BNV) | payer MEDICARE, SELFPAY | PROVIDERS: Visit Provider Physical Medicine & Rehabilitation | DX: R20.0 Anesthesia of skin (principal); R20.2 Paresthesia of skin | CPT/HCPCS: 95886; 95911 ==

== ENCOUNTER 2024-08-31 10:06 | Outpatient (AMB) | payer MEDICARE, SELFPAY ==
--- OUTSIDE RECORDS SUMMARY | 2024-08-31 11:12 | XMS_ITS ---
Author Organization [facility] Address [address] [facility] [place] [address] Care Team Providers Care Mine Equipment Design Engineer Name Role Phone Buddy Bolden Primary Care Provider Unav ailable Leandro Harvey Unavailable [phone] Allergies Allergen (clinical drug ingredient) Drug/Non Drug [...] Encounters Encounter Location Date Provider Diagnosis [facility] [address] [place] [address] 06/05/2024 Leandro Harvey Plan Of Treatment No Information Progress Notes * Nereida MCBRIDE ADOB:[birth year] (69 yo F)Acc No.[id number]:06/05/2024 Progress Note Patient:?Nereida MCBRIDE Provider:?Leandro Harvey DPM :1955???Age:69 Y???Sex:Female D ate:06/05/2024 Address:[address] [place], [place] [address] Pcp:DEB Mcclure Subjective: * Chief Complaints: * [...] Harvey DPM Date:?2024 Generated for Gale rogers/Anais/Cassie on:?08/31/2024 11:12 AM EDT
--- OUTSIDE RECORDS SUMMARY | 2024-08-31 11:12 | XMS_ITS | Clinical Summary ---
Author Organization [employer] [facility] Address [address] [place] [address] Care Team Providers Care Optometrist President/Practice Owner Name Role Phone Buddy Shaw NP Primary [...] Recently Relevant to Health Maintenance Care Teams Optometrist President/Practice Owner Relationship Specialty Start Date End Date Buddy Shaw, RADIUS CORNER MACHINE OPERATOR [address] [place], [place] PCP - General 11/29/22
--- OUTSIDE RECORDS SUMMARY | 2024-08-31 11:12 | XMS_ITS | Patient Health Record ---
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
--- OUTSIDE RECORDS SUMMARY | 2024-08-31 11:12 | XMS_ITS ---
Author Organization [facility] Address [address] [place] [address] Care Team Providers Care Cone Examiner Name Role Phone Buddy Bolden Primary Care Provider Unav ailable Leandro Harvey Unavailable [phone] Martinez Encounters Encounter Location Date Provider Diagnosis [facility] [address] [place] [address] 03/10/2024 Leandro Harvey Plan Of Treatment No Information Progress Notes * Nereida MCBRIDE ADOB:[birth year] (69 yo F)Acc No.[id number]:03/10/2024 Progress Note Patient:?Nereida MCBRIDE Provider:?Leandro Harvey DPM [...] Harvey DPM Date:?2023 Generated for Gale rogers/Anais/Cassie on:?08/31/2024 11:12 AM EDT
--- OUTSIDE RECORDS SUMMARY | 2024-08-31 11:12 | XMS_ITS | Patient Health Record ---
Author Organization [facility] Address [address] [facility] [place] [address] Care Team Providers Care Airframe And Powerplant Mechanic Name Role Phone Buddy Bolden Primary Care Provider Unav ailable Leandro Harvey Unavailable [phone] Allergies Allergen (clinical drug ingredient) Drug/Non Drug [...] W/U Status Risk Notes Problem Tinea unguium (152384706) Tinea unguium (B35.1) Active confirmed Response to treatment,Un resolved Problem Plantar wart (64697578) Plantar wart (B07.0) Active confirmed Vital Signs Height 5ft4in in 03/03/2024 Weight 208 lbs 03/03/2024 BMI 35.7 kg/m2 03/03/2024 Procedures Procedure Date Ordered Date Performed Result Body Sit e 14550-Bafc Destruction, 1-14 03/03/2024 N/A Encounters Encounter Location Date Provider Diagnosis [facility] [address] 03/03/2024 Leandro Harvey Tinea unguium B35.1 ; Pain in right toe(s) M79.674 ; Pain in left toe(s) M79.675 ; Plantar wart B07.0 and Left foot pain M79.[address] [facility] [address] 09/18/2023 [facility]andro [facility] [address] 06/05/2024 Leandro Harvey Assessments Encounter Date Diagnosis [...] Treatment Pending Test Test Name Order Date 97718-Bbaz Destruction, 1-14 03/03/2024 39022- Removal of Foreign Body, Subcut 1 50,[id number]-WGH TENDON SHEATH/LIGAMENT 1 50,[id number]-NWY TENDON SHEATH/LIGAMENT 0 02/15/201408225,L2915-VYQ TENDON SHEATH/LIGAMENT 0 02/23/201481141,N6780-AWB TENDON SHEATH/LIGAMENT 1 Insurance Providers Payer Name Payer Address Payer Phone Subscriber Number Group Number Insured Name Patient Relationship to Insured Coverage Start Date Coverage End Date Medicare National Govt Svcs Inc [address] [facility] [place] [address] [id number] Rae Nereida Self - patient is the insured [employer] [address] [place] [address] [id number] Rea Nereida Self - patient is the insured Medical (General) History Medical History History ICD Code Anxiety Arthritis Back,Hip,and Knee pain sinusitis Measles Mumps Chicken pox Joint implants/screws CAD (Cholesterol) Depression Surgical History Surgery Date(Month/Year) rods in both shoulders Left SQ Plantar Fibroma/S.T. Mass (Unspe c) 09/2014 rotator cuff 2006 colonoscopy
--- OUTSIDE RECORDS SUMMARY | 2024-08-31 11:13 | XMS_ITS ---
Author Organization [facility] Address [address] [place] [address] Care Team Providers Care Aviation Support Equipment Repairer Name Role Phone Buddy Bolden Primary Care Provider Unav ailable Leandro Harvey Unavailable [phone] REASON FOR VISIT SD cx 1/3 Encounters Encounter Location Date Provider Diagnosis [facility] [address] [place] [address] 06/05/2024 Leandro Harvey Plan Of Treatment No Information Progress Notes * Nereida MCBRIDE ADOB:[birth year] (69 yo F)Acc No.[id number]:06/05/2024 Patient:?Nereida MCBRIDE :1955???Age:69 Y???Sex:Female Address:[address] [place], [address] * true * Date:? Generated for Printi sue/Anais/eTransmitting on:?08/31/2024 11:12 AM EDT
[2024-08-31 11:32] VITALS: BP 130/80; PULSE 76; O2SAT 97
--- NOTE | 2024-08-31 11:32 | MHC.OFFWIV ---
Intake Vital Signs 08/31/24 11:32 Weight 210 lb BP 130/80 Blood Pressure Location Lt brachial Position Sitting Pulse 76 Pulse Source Pulse Oximeter Pulse Oximetry (%) 97 Oxygen Delivery Method Room Air Intake Visit Reasons: EP Sinus congestion ([phone]) Intake Note: Patient here for teeth pain, sinus headache, post nasal drip and upset stomach that has been present for at elast 3 weeks. Patient Tobacco Use Status: Current everyday Tobacco user Allergies No Known Allergies [No Known Allergies*] Allergy (Verified 08/31/24 11:33) HPI HPI Comments History of Present Illness Details 69 y/o female patient who presents to the walk in clinic with c/o Sinus pressure/congestion and tenderness for 3 weeks now. H/o Chronic allergic rhinitis, and currently uses Flonase and Claritin daily. Pt reports that Usually they give her Antibiotics such as Amoxicillin for 10 days and that resolves her symptoms. Pt states The Z-pack does not work for me, usually I have to return for Amoxicillin . Advised Patient that Antibiotics do not treat Allergic Rhinitis, and that is the reason why the symptoms return after stopping the antibiotics. Pt insisted on receiving Antibiotics because I know by body well . [facility] Medical History (Updated 08/31/24 @ 11:47 by Cristal Carlos NP) Allergic rhinitis Chronic pain syndrome SVT (supraventricular tachycardia) Elevated cholesterol Obstructive sleep apnea of adult Nicotine dependence, cigarettes, uncomplicated Osteopenia GERD (gastroesophageal reflux disease) Tubular adenoma Depression with anxiety Sacroiliitis Arthritis Swelling of knee joint, left Tardive dyskinesia Surgical History History of colonoscopy History of hysterectomy History of rotator cuff surgery History of hand surgery History of cardiac radiofrequency ablation (RFA) Family History Father Mental health disorder Paternal Grandfather Mental health disorder Daughter Mental health disorder Mother Lung cancer Social History Household Members Other:: daughter Housing: House Are you a primary inpatient care manager rn to a significant other at home: No Do you presently have visiting nurse or other home services: No Patient Tobacco Use Status: Current everyday Tobacco user Tobacco use type: Cigarette Years Smoked: (onset 17yo, 1/2-1ppd x 50yrs, 35pyh) e-Cigarette/Vaping Use: Never Used Second Hand Smoke Exposure: No service: No Current occupational status: retired Current occupation: works part [employer] Current occupational exposures/hazards: No Cognitive needs: No Hearing needs: No Vision needs: Yes Review of Systems Const All systems reviewed & are unremarkable except as noted in HPI and below Physical Exam Vital Signs: Last Vital Signs Pulse 76 08/31/24 11:32 BP 130/80 08/31/24 11:32 Pulse Ox 97 08/31/24 11:32 Oxygen Delivery Method Room Air 08/31/24 11:32 Const General: no acute distress Nutritional Appearance: obese Orientation/consciousness: patient oriented x3 HEENT Head: Yes normocephalic Ears: external ears normal and TM abnormal with fluid behind the TM bilateral General nose exam: Abnormal mucous membranes and turbinates present boggy and erythematous Face and sinus: Yes sinus tenderness Mouth: moist mucous membranes Throat: Yes uvula midline Resp Effort & Inspection: normal respiratory effort and able to speak in complete sentences Auscultation: clear to auscultation bilaterally Cardio Heart sounds: S1 normal heart sound present and S2 normal heart sound present Neuro General: patient oriented x3 Assessment & Plan Assessment & Plan (1) Allergic rhinitis: Code(s): J30.9 - Allergic rhinitis, unspecified Qualifiers: Allergic rhinitis trigger: other Allergic rhinitis seasonality: seasonal Qualified Code(s): J30.89 - Other allergic rhinitis Plan: Ordered Amoxicillin as requested Advised against the use of Abx to treat Allergic Rhinitis. Advised her to f/u with Railroad Police Officer or ENT. Medications: New amoxicillin 500 mg PO BID 5 days 10 caps 0RF J30.89 - Other allergic rhinitis Coding Level of Care Code Est Pt Level 4 (08124) Diagnoses Seasonal allergic rhinitis due to other allergic trigger J30.89 Allergic rhinitis trigger: other Allergic rhinitis seasonality: seasonal Time Spent (min) 20
== END 2024-08-31 13:04 | disposition home or self-care (01) ==
PROVIDERS: PCP Nurse Practitioner Family; Visit Provider Nurse Practitioner Family
DX: J30.89 Other allergic rhinitis (principal)

== ENCOUNTER → 2024-08-31 10:06 | Outpatient (BNVA) | payer MEDICARE, SELFPAY | PROVIDERS: PCP Nurse Practitioner Family; Visit Provider Nurse Practitioner Family | DX: J30.89 Other allergic rhinitis (principal) | CPT/HCPCS: 99212 ==

== ENCOUNTER 2024-09-26 09:02 | Outpatient (AMB) | payer MEDICARE, SELFPAY ==
[2024-09-26 09:04] VITALS: BP 110/64; PULSE 78; RESP 16; TEMP 36.4; O2SAT 97; BMI 36.2
--- NOTE | 2024-09-26 09:04 | MHC.OFFWIV ---
Intake Vital Signs 09/26/24 09:04 Height 5 ft 4 in Weight 211 lb BMI 36.2 BP 110/64 Blood Pressure Location Lt brachial Position Sitting Respiration 16 Pulse 78 Pulse Source Pulse Oximeter Temp 97.6 F Temp Source Oral Pulse Oximetry (%) 97 Oxygen Delivery Method Room Air Intake Visit Reasons: EP-UTI? Intake Note: Pt is here today c/o burning after urination Patient Tobacco Use Status: Current everyday Tobacco user Allergies No Known Allergies [No Known Allergies*] Allergy (Verified 09/26/24 09:05) Medication List - Last Reconciled 09/26/24 by Reji Hughes MD albuterol sulfate 90 mcg/actuation (Ventolin HFA) 2 puffs inhalation Q4-6H PRN atorvastatin 20 mg PO DAILY 90 days bupropion HCl XL 300 mg PO DAILY bupropion HCl XL 150 mg PO QAM clotrimazole 1% 1 appl topical BID 5 days duloxetine 60 mg PO DAILY levothyroxine 25 mcg PO DAILY lorazepam 0.5 mg PO BID PRN nitrofurantoin monohyd/m-cryst 100 mg (Macrobid) 100 mg PO BID 7 days omeprazole 40 mg PO DAILY 90 days terazosin 1 mg PO BEDTIME 30 days ziprasidone HCl 20 mg PO DAILY HPI EP-UTI? HPI Details Pt w/ h/o incomplete bladder emptying and intermittent self-caths, presents w/ co/o dysuria and some hematuria. Pain and spasm at urethral os. Mild back ache PFSH Medical History (Updated 09/26/24 @ 09:14 by Reji Hughes MD) Allergic rhinitis Chronic pain syndrome SVT (supraventricular tachycardia) Elevated cholesterol Obstructive sleep apnea of adult Nicotine dependence, cigarettes, uncomplicated Osteopenia GERD (gastroesophageal reflux disease) Tubular adenoma Depression with anxiety Sacroiliitis Arthritis Swelling of knee joint, left Tardive dyskinesia Surgical History History of colonoscopy History of hysterectomy History of rotator cuff surgery History of hand surgery History of cardiac radiofrequency ablation (RFA) Family History Father Mental health disorder Paternal Grandfather Mental health disorder Daughter Mental health disorder Mother Lung cancer Social History Household Members Other:: daughter Housing: House Are you a primary ambulatory care coordinator to a significant other at home: No Do you presently have visiting nurse or other home services: No Patient Tobacco Use Status: Current everyday Tobacco user Tobacco use type: Cigarette Years Smoked: (onset 17yo, 1/2-1ppd x 50yrs, 35pyh) e-Cigarette/Vaping Use: Never Used Second Hand Smoke Exposure: No service: No Current occupational status: retired Current occupation: works part [employer] Current occupational exposures/hazards: No Cognitive needs: No Hearing needs: No Vision needs: Yes Review of Systems Const Denies chills, Denies fatigue, Denies fever(s), Denies headache(s) and Denies weakness ENT Denies dizziness and Denies headache(s) Card Denies dyspnea Resp Denies cough, Denies dyspnea, Denies wheezing and Denies other ( shortness of breath) Details: Dysuria Musc Denies numbness and Denies tingling Neuro Denies dizziness, Denies headache(s), Denies numbness, Denies tingling, Denies paresthesias and Denies weakness Psych Denies anxiety and Denies depression Endo Denies fatigue Aller/Immun Denies wheezing Physical Exam Vital Signs: BMI result Body Mass Index 36.2 Const General: no acute distress and well developed Nutritional Appearance: well nourished Orientation/consciousness: patient oriented x3 HEENT Head: Yes normocephalic and Yes atraumatic Eyes General: appearance normal, both eyes and all related structures Pupils: Equal, round and reactive pupils present EOM: EOMs intact bilaterally Resp Effort & Inspection: normal respiratory effort Back/Spine/Pelvis Other: No CVA ttp Neuro General: patient oriented x3 and gait normal Cranial nerves: Yes Equal, round and reactive pupils present Psych Affect: normal affect Results AMB Urinalysis, Automated UA Leukoctes 0 Karime/uL Last Edit by Rachael Kellogg CMA on 09/26/24 09:17 UA Nitrite Negative Last Edit by Rachael Kellogg CMA on 09/26/24 09:17 UA Urobilinogen 0.2 mg/dL Last Edit by Rachael Kellogg CMA on 09/26/24 09:17 UA Protein 0 mg/dL Last Edit by Rachael Kellogg CMA on 09/26/24 09:17 UA pH 6.0 Last Edit by Rachael Kellogg CMA on 09/26/24 09:17 UA Blood 0 Moises/uL Last Edit by Rachael Kellogg CMA on 09/26/24 09:17 UA Specific [place] 1.010 Last Edit by Rachael Kellogg CMA on 09/26/24 09:17 UA Ketone Negative Last Edit by Rachael Kellogg CMA on 09/26/24 09:17 UA Bilirubin 0 mg/dL Last Edit by Rachael Kellogg CMA on 09/26/24 09:17 UA Glucose 0 mg/dL Last Edit by Rachael Kellogg CMA on 09/26/24 09:17 Assessment & Plan Assessment & Plan (1) Dysuria: Code(s): R30.0 - Dysuria (2) Hematuria: Code(s): R31.9 - Hematuria, unspecified (3) Incomplete bladder emptying: Code(s): R33.9 - Retention of urine, unspecified Plan 69-year-old female with a history of incomplete bladder emptying and self catheterizations presents with burning and spasm at urethral os after urination. Urine dip unremarkable. Given that she self caths, will give her empiric script for nitrofurantoin and send urine for urinalysis and C&S. Also possible yeast infection/overgrowth. Will send clotrimazole which she can apply to introitus x 5 days. Call or return to office if not improving or worsens. Orders: Orders Urine Culture Today R30.0 - Dysuria UA and rflx microscopic Today R30.0 - Dysuria AMB Urinalysis Automated Today Z13.9 - Encounter for screening, unspecified Medications: New nitrofurantoin monohyd/m-cryst 100 mg (Macrobid) must administer with a meal/food 100 mg PO BID 7 days 14 caps 0RF R30.0 - Dysuria clotrimazole 1% 1 appl topical BID 5 days 15 grams 0RF Coding Level of Care Code Est Pt Level 3 (51603) Diagnoses Dysuria R30.0 Hematuria R31.9 Incomplete bladder emptying R33.9
--- OUTSIDE RECORDS SUMMARY | 2024-09-26 09:04 | XMS_ITS | Patient Health Record ---
Author Organization [facility] Address [address] [facility] [place] [address] Care Team Providers Care Laboratory Technician Name Role Phone Buddy Bolden Primary Care Provider Unav ailable Leandro Harvey Unavailable [phone] Allergies Allergen (clinical drug ingredient) Drug/Non Drug [...] W/U Status Risk Notes Problem Tinea unguium (407064166) Tinea unguium (B35.1) Active confirmed Response to treatment,Un resolved Problem Plantar wart (44667455) Plantar wart (B07.0) Active confirmed Vital Signs Height 5ft4in in 03/03/2024 Weight 208 lbs 03/03/2024 BMI 35.7 kg/m2 03/03/2024 Procedures Procedure Date Ordered Date Performed Result Body Sit e 49935-Krwc Destruction, 1-14 03/03/2024 N/A Encounters Encounter Location Date Provider Diagnosis [facility] [address] 03/03/2024 Leandro Harvey Tinea unguium B35.1 ; Pain in right toe(s) M79.674 ; Pain in left toe(s) M79.675 ; Plantar wart B07.0 and Left foot pain M79.672 [facility] [address] 06/05/2024 Leandro Harvey Assessments Encounter Date Diagnosis [...] Treatment Pending Test Test Name Order Date 63482-Phce Destruction, 1-14 03/03/2024 05680- Removal of Foreign Body, Subcut 1 50,H2989-IGP TENDON SHEATH/LIGAMENT 1 50,[id number] TENDON SHEATH/LIGAMENT 0 02/23/201425342,Z3358-FSF TENDON SHEATH/LIGAMENT 0 02/15/201466802,Q8329-RBT TENDON SHEATH/LIGAMENT 1 Insurance Providers Payer Name Payer Address Payer Phone Subscriber Number Group Number Insured Name Patient Relationship to Insured Coverage Start Date Coverage End Date Medicare National Govt Svcs Inc [address] [place] [address] [id number] Rae Nereida Self - patient is the insured [employer] [address] [place] [address] [phone] [id number] Nereida Mcbride Self - patient is the insured Medical (General) History Medical History History ICD Code Anxiety Arthritis Back,Hip,and Knee pain sinusitis Measles Mumps Chicken pox Joint implants/screws CAD (Cholesterol) Depression Surgical History Surgery Date(Month/Year) rods in both shoulders Left SQ Plantar Fibroma/S.T. Mass (Unspe c) 09/2014 rotator cuff 2006 colonoscopy
--- OUTSIDE RECORDS SUMMARY | 2024-09-26 09:04 | XMS_ITS | Clinical Summary ---
Author Organization [facility] Address [address] [place] [address] Care Team Providers Care Visual Manager Name Role Phone Buddy Shaw NP Primary [...] Vaccines (1 of 2) 02/21/1976 RSV Immunization Adult Patients (1 - Risk 60-74 years 1-dose series) [...] Health Screening 05/12/2022 Breast Cancer Screening 11/29/2023 11/29/19, 09/17/2020, 02/21/2019, Additional history exists Influenza Vaccine (Season Ended) 2025 01/22/2020, 02/10/2018, 02/22/2017, Additional history exists HIB Vaccines [...] age to complete this topic Meningococcal B Vaccine Aged Out No l onger eligible based on patient's age to complete [...] Recently Relevant to Health Maintenance Care Teams Visual Manager Relationship Specialty Start Date End Date Buddy Shaw, BINDING BENCH WORKER [address] [facility] [place] PCP - General 11/29/22
--- OUTSIDE RECORDS SUMMARY | 2024-09-26 09:05 | XMS_ITS ---
Author Organization [facility] Address [address] [place] [address] Care Team Providers Care [employer] Officer Name Role Phone Buddy Bolden Primary Care Provider Unav ailable Leandro Harvey Unavailable [phone] Maritnez Encounters Encounter Location Date Provider Diagnosis [facility] [address] [place] [address] 03/10/2024 Leandro Harvey Plan Of Treatment No Information Progress Notes * Nereida MCBRIDE ADOB:[birth year] (69 yo F)Acc No.[id number]:03/10/2024 Progress Note Patient:?Nereida MCBRIDE Provider:?Leandro Harvey DPM [...] Harvey DPM Date:?2023 Generated for Gale rogers/Anais/Cassie on:?09/26/2024 09:04 AM EDT
--- OUTSIDE RECORDS SUMMARY | 2024-09-26 09:05 | XMS_ITS | Patient Health Record ---
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
--- OUTSIDE RECORDS SUMMARY | 2024-09-26 09:05 | XMS_ITS ---
Author Organization [facility] Address [address] [facility] [place] [address] Care Team Providers Care Can Machine Operator Name Role Phone Buddy Bolden Primary Care Provider Unav ailable Leandro Harvey Unavailable [phone] Allergies Allergen (clinical drug ingredient) Drug/Non Drug [...] Active Encounters Encounter Location Date Provider Diagnosis [facility] [address] [place] [address] 06/05/2024 Leandro Harvey Plan Of Treatment No Information Progress Notes * Nereida MCBRIDE ADOB:[birth year] (69 yo F)Acc No.[id number]:06/05/2024 Progress Note Patient:?Nereida MCBRIDE Provider:?Leandro Harvey DPM :1955???Age:69 Y???Sex:Female D ate:06/05/2024 Address:[address] [place], [place] [address] Pcp:DEB Mcclure Subjective: * Chief Complaints: * [...] Harvey DPM Date:?2024 Generated for Gale rogers/Anais/Cassie on:?09/26/2024 09:04 AM EDT
--- OUTSIDE RECORDS SUMMARY | 2024-09-26 09:05 | XMS_ITS ---
Author Organization [facility] Address [address] [place] [address] Care Team Providers Care Dispatcher Motor Vehicle Name Role Phone Buddy Bolden Primary Care Provider Unav ailable Leandro Harvey Unavailable [phone] REASON FOR VISIT SD cx 1/3 Encounters Encounter Location Date Provider Diagnosis [facility] [address] [place] [address] 06/05/2024 Leandro Harvey Plan Of Treatment No Information Progress Notes * Nereida MCBRIDE ADOB:[birth year] (69 yo F)Acc No.[id number]:06/05/2024 Patient:?Nereida MCBRIDE :1955???Age:69 Y???Sex:Female Address[address] [place], [address] * true * Date:? Generated for Printi sue/Anais/eTransmitting on:?09/26/2024 09:04 AM EDT
== END 2024-09-26 09:48 | disposition home or self-care (01) ==
LOC: HO.HMCWIC 09:02
PROVIDERS: PCP Nurse Practitioner Family; Visit Provider Family Medicine
DX: R30.0 Dysuria (principal); R31.9 Hematuria, unspecified; R33.9 Retention of urine, unspecified; Z13.9 Encounter for screening, unspecified

== ENCOUNTER 2024-09-26 09:02 | Outpatient (REF) | payer MEDICARE, SELFPAY ==
--- OUTSIDE RECORDS SUMMARY | 2024-09-26 09:42 | XMS_ITS | Encounter Summary ---
Author Organization [facility] Address [address] [place] [address] Care Team Providers Care Event Promoter Name Role Phone Celina Mann DO Primary Care Pro vider Unavailable Mercedes Han MD Primary Care Provider [phone] Callum Hernandez DO Primary Care Provider Lopez Lu MD Primary Care Provider Buddy Foy NP Primary Care Provider Unavail able [facility], Pcp Primary Care Provider Buddy Marlow NP Primary Care Provider Unavail able Reason for Visit * Reason Onset Date Comments Call From Hospital 02/28/2017 Encounter Details Date Type Department Care Team Description 02/28/2017 Telephone Adult Medicine [address] [address] Celina Mann DO Call From Hospital Social [...] pt she is on her way to [facility], * Telephone Encounter - Darlenemanas Pineda - 02/28/2017 11:27 AM EDT Alisha a Public Health nurse in [place] gave following info Symptoms patient is presenting: low leg swelling ,tingling in hands 3lb weight gain since last night per alisha. Alisha states she instructing pt to go to [facility] fy Pt can be reached @ [phone] If pain or injury related was it due to an accident at work or from a motor vehicle accident? no Date of accident/Injury: NA How long has patient had these symptoms?: last night PCP: Celina Fong Payor: [email or web address] [place] / Plan: G2LinkO $25 [place] [id number] / Product Type: HMO [id number] documented in this encounter Plan of Treatment Not on file documented as of this encounter Visit Diagnoses Not on filedocumented in this encounter Care Teams Event Promoter Relationship Specialty Start Date End Date Celina Mann DO PCP - General Internal Medicine 03/21/16 11/23/20 Mercedes Han MD [address] [place] [address] PCP - General Internal Medicine 11/24/20 01/11/21 Callum Hernandez DO [address] [place] [address] PCP - General Internal Medicine 01/12/21 03/19/21 Lopez Brennan MD [address] [place] [address]673 PCP - General Internal Medicine 03/20/21 10/19/21 Buddy Shaw NP [address] [place] [address] PCP - General Family Practice 10/20/21 01/04/22 [facility], Pcp [address] [place] [address] PCP - General Internal Medicine 01/05/22 11/28/22 Buddy Shaw NP [address] [place], [place] [phone] PCP - General Family Practice 11/29/22 documented as of this encounter
--- OUTSIDE RECORDS SUMMARY | 2024-09-26 09:42 | XMS_ITS | Encounter Summary ---
Author Organization [facility] Address [address] [place] [address] Care Team Providers Care Grocery Department Manager Name Role Phone Celina Mann DO Primary Care Pro vider Unavailable Mercedes Han MD Primary Care Provider [phone] Callum Hernandez DO Primary Care Provider Lopez Lu MD Primary Care Provider Buddy Foy NP Primary Care Provider Unavail [facility] Pcp Primary Care Provider Buddy Marlow NP Primary Care Provider Unavail [facility] Encounter Details Date Type Department Care Team Description 08/27/2019 Carbon Capture Power Plant Engineer Report Medical Records [address] [place] [address] Abstract, Provider Social History Tobacco Use Types [...] on filedocumented in this encounter Care Teams Grocery Department Manager Relationship Specialty Start Date End Date Celina Mann DO PCP - General Internal Medicine 03/21/16 11/23/20 Mercedes Han MD [address] [place] [address] [id number] PCP - General Internal Medicine 11/24/20 01/11/21 Callum Hernandez DO [address] [place] [address] PCP - General Internal Medicine 01/12/21 03/19/21 Lopez Brennan MD [address] [place] [address] PCP - General Internal Medicine 03/20/21 10/19/21 Buddy Shaw NP [address] [place], [place] [phone] PCP - General Family Practice 10/20/21 01/04/22 [facility], Pcp [address] [place] [address] PCP - General Internal Medicine 01/05/22 11/28/22 Buddy Shaw NP [address] [place], [place] [phone] PCP - General Family Practice 11/29/22 documented as of this encounter
--- OUTSIDE RECORDS SUMMARY | 2024-09-26 09:42 | XMS_ITS | Encounter Summary ---
Author Organization [facility] Address [address] [place] [address] Care Team Providers Care Supervisor Forming Department Name Role Phone Blake Rivera MD Primary Care Provider Unavail able Celina Mann DO Primary Care Pro vider Unavailable Mercedes Han MD Primary Care Provider [phone] Celina Mann DO Primary Care Pro vider Unavailable Mercedes Han MD Primary Care Provider [phone] Callum Hernandez DO Primary Care Provider Lopez Lu MD Primary Care Provider Buddy Foy NP Primary Care Provider Unavail [facility] Pcp Primary Care Provider UnavailBuddy Stephen NP Primary Care Provider Unavail able Encounter Details Date Type Department Care Team Description 01/28/2015 Training Director Report Medical Records [address] [place] [address] Marko Ham I., PH.D Social History Tobacco Use Types Packs/Day Years Used Date Smoking Tobacco: Former Cigarettes 25 Smokeless Tobacco: Never Comments:2 cig [...] filedocumented in this encounter Care Teams Supervisor Forming Department Relationship Specialty Start Date End Date Blake Rivera MD PCP - General Internal Medicine 05/11/14 03/03/15 Celina Mann DO PCP - General Internal Medicine 03/04/15 02/06/16 Mercedes Han MD [address] [place] [address] PCP - General Internal Medicine 02/07/16 03/20/16 Celina Mann DO PCP - General Internal Medicine 03/21/16 11/23/20 Mercedes Han MD [address] [place] [address] PCP - General Internal Medicine 11/24/20 01/11/21 Callum Hernandez DO [address] [place] [address] PCP - General Internal Medicine 01/12/21 03/19/21 Lopez Brennan MD [address] [place] [address]408 PCP - General Internal Medicine 03/20/21 10/19/21 Buddy Shaw NP [address] [place] [address] 8[address]18 PCP - General Family Practice 10/20/21 01/04/22 [facility], Pcp [address] [place] [address]60 PCP - General Internal Medicine 01/05/22 11/28/22 Buddy Shaw NP [address] [place] [address] 209[address] PCP - General Family Practice 11/29/22 documented as of this encounter
--- OUTSIDE RECORDS SUMMARY | 2024-09-26 09:42 | XMS_ITS | Encounter Summary ---
Author Organization [facility] Address [address] [place] [address] Care Team Providers Care Batch Blender Name Role Phone Celina Mann DO Primary Care Pro vider Unavailable Mercedes Han MD Primary Care Provider [phone] Callum Hernandez DO Primary Care Provider Lopez Lu MD Primary Care Provider Buddy Foy NP Primary Care Provider Unavail [facility] Pcp Primary Care Provider Buddy Marlow NP Primary Care Provider Unavail able Encounter Details Date Type Department Care Team Description 04/15/2017 Pt. Non Urgent Medic al Question Adult Medicine [address] [address] Celina Mann DO Social History Tobacco Use [...] on filedocumented in this encounter Care Teams Batch Blender Relationship Specialty Start Date End Date Celina Mann DO PCP - General Internal Medicine 03/21/16 11/23/20 Mercedes Han MD [address] [place] [address] PCP - General Internal Medicine 11/24/20 01/11/21 Callum Hernandez DO [address] [place], [place] [phone] PCP - General Internal Medicine 01/12/21 03/19/21 Lopez Brennan MD [address] [place], [place] [phone] PCP - General Internal Medicine 03/20/21 10/19/21 Buddy Shaw NP [address] [place] [address] PCP - General Family Practice 10/20/21 01/04/22 [place] [id number] PCP - General Internal Medicine 01/05/22 11/28/22 Buddy Shaw NP [address] [place] [address] PCP - General Family Practice 11/29/22 documented as of this encounter
--- OUTSIDE RECORDS SUMMARY | 2024-09-26 09:42 | XMS_ITS | Encounter Summary ---
Author Organization [facility] Address [address] [place] [address] Care Team Providers Care Glue Mill Operator Name Role Phone Celina Mann DO Primary Care Pro vider Unavailable Mercedes Han MD Primary Care Provider [phone] Callum Hernandez DO Primary Care Provider Lopez Lu MD Primary Care Provider Buddy Foy NP Primary Care Provider Unavail [facility] Pcp Primary Care Provider Buddy Marlow NP Primary Care Provider Unavail able Encounter Details Date Type Department Care Team Description 06/25/2019 Refill Adult Medicine [address] [address] Celina Mann DO Social History Tobacco Use [...] encounter Miscellaneous Notes * Telephone Encounter - Debby Sanders M.A. - 06/25/2019 1:59 PM EST Last office visit 04/06/19 documented in this encounter Plan of Treatment Not on file documented as of this encounter Visit Diagnoses Not on filedocumented in this encounter Care Teams Glue Mill Operator Relationship Specialty Start Date End Date Celina Mann DO PCP - General Internal Medicine 03/21/16 11/23/20 Mercedes Han MD [address] [place] [address] PCP - General Internal Medicine 11/24/20 01/11/21 Callum Hernandez DO [address] [place], [place] [phone] PCP - General Internal Medicine 01/12/21 03/19/21 Lopez Brennan MD [address] [place], [place] [phone] PCP - General Internal Medicine 03/20/21 10/19/21 Buddy Shaw NP [address] [place] [address] PCP - General Family Practice 10/20/21 01/04/[address] [address] PCP - General Internal Medicine 01/05/22 11/28/22 Buddy Shaw NP [address] [place] [address] PCP - General Family Practice 11/29/22 documented as of this encounter
--- OUTSIDE RECORDS SUMMARY | 2024-09-26 09:42 | XMS_ITS | Encounter Summary ---
Author Organization [employer] [facility] Address [address] [place] [address] Care Team Providers Care Emulsion Coater Name Role Phone Celina Mann DO Primary Care Pro vider Unavailable Mercedes Han MD Primary Care Provider [phone] Callum Hernandez DO Primary Care Provider Lopez Lu MD Primary Care Provider Buddy Foy NP Primary Care Provider Unavail [facility] Pcp Primary Care Provider Buddy Marlow NP Primary Care Provider Unavail able Encounter Details Date Type Department Care Team Description 06/21/2017 Capital Equipment Specialist Report Medical Records [address] [place] [address] Marko Ham I., PH.D Social History Tobacco [...] on filedocumented in this encounter Care Teams Emulsion Coater Relationship Specialty Start Date End Date Celina Mann DO PCP - General Internal Medicine 03/21/16 11/23/20 Mercedes Han MD [address] [place] [address] PCP - General Internal Medicine 11/24/20 01/11/21 Callum Hernandez DO [address] [place] [address] PCP - General Internal Medicine 01/12/21 03/19/21 Lopez Brennan MD [address] [place] [place] [address] PCP - General Internal Medicine 03/20/21 10/19/21 Buddy Shaw NP [address] [place] [place] [address] PCP - General Family Practice 10/20/21 01/04/22 [facility], Pcp [address] [place] [place] [address] PCP - General Internal Medicine 01/05/22 11/28/22 Buddy Shaw NP [address] [place] [address] PCP - General Family Practice 11/29/22 documented as of this encounter
--- OUTSIDE RECORDS SUMMARY | 2024-09-26 09:42 | XMS_ITS | Encounter Summary ---
Author Organization [employer] [facility] Address [address] [place] [address] Care Team Providers Care Clinical Trial Associate Name Role Phone Celina Mann DO Primary Care Pro vider Unavailable Mercedes Han MD Primary Care Provider Callum Hernandez DO Primary Care Provider Lopez Lu MD Primary Care Provider Buddy Foy NP Primary Care Provider Unavail able [facility], Pcp Primary Care Provider UnavailBuddy Stephen NP Primary Care Provider Unavail able Reason for Visit * Reason Comments E-prescribe Rx Request Encounter Details Date Type Department Care Team Description 05/14/2019 Refill Adult Medicine [address] [address] Celina Mann DO E-prescribe Rx Request Social [...] N/A Patients current insurance carrier is: Payor: [employer] / Plan: [employer] $20 [place] 1 / Product Type: HMO [id number] documented in this encounter Plan of Treatment Not on file documented as of this encounter Visit Diagnoses Not on filedocumented in this encounter Care Teams Clinical Trial Associate Relationship Specialty Start Date End Date Celina Mann DO PCP - General Internal Medicine 03/21/16 11/23/20 Mercedes Han MD [address] [place], [place] [phone] PCP - General Internal Medicine 11/24/20 01/11/21 Callum Hernandez DO [address] [place] [address] PCP - General Internal Medicine 01/12/21 03/19/21 Lopez Brennan MD [address] [place], [place] [phone] PCP - General Internal Medicine 03/20/21 10/19/21 Buddy Shaw NP [address] [place] [address] PCP - General Family Practice 10/20/21 01/04/22 [facility], [place] [phone] PCP - General Internal Medicine 01/05/22 11/28/22 Buddy Shaw NP [address] [place] [address] PCP - General Family Practice 11/29/22 documented as of this encounter
--- OUTSIDE RECORDS SUMMARY | 2024-09-26 09:42 | XMS_ITS | Encounter Summary ---
Author Organization [facility] Address [address] [place] [address] Care Team Providers Care Statuary Painter Name Role Phone Celina Mann DO Primary Care Pro vider Unavailable Mercedes Han MD Primary Care Provider [phone] Callum Hernandez DO Primary Care Provider Lopez Lu MD Primary Care Provider Buddy Foy NP Primary Care Provider Unavail able [facility] Pcp Primary Care Provider Buddy Marlow NP Primary Care Provider Unavail able Encounter Details Date Type Department Care Team Description 04/24/2019 Pt. Non Urgent Medic al Question Adult Medicine [address] [address] Celina Mann DO Social History Tobacco Use [...] EST Subject: Sciatica Dear Dr. I called [employer] and spoke with a nurse sample case porter for my pain management request. shesaid that [...] on filedocumented in this encounter Care Teams Statuary Painter Relationship Specialty Start Date End Date Celina Mann DO PCP - General Internal Medicine 03/21/16 11/23/20 Mercedes Han MD [address] [place] [address] PCP - General Internal Medicine 11/24/20 01/11/21 Callum Hernandez DO [address] [place] [address] PCP - General Internal Medicine 01/12/21 03/19/21 Lopez Brennan MD [address] [place] [address] PCP - General Internal Medicine 03/20/21 10/19/21 Buddy Shaw NP [address] [place] [address] PCP - General Family Practice 10/20/21 01/04/22 [facility], Jan [address] [place] [address] PCP - General Internal Medicine 01/05/22 11/28/22 Buddy Shaw NP [address] [place] [address] PCP - General Family Practice 11/29/22 documented as of this encounter
--- OUTSIDE RECORDS SUMMARY | 2024-09-26 09:43 | XMS_ITS | Encounter Summary ---
Author Organization [facility] Address [address] [place] [address] Care Team Providers Care Pony Ride Attendant Name Role Phone Luciano Skinner MD Primary Care Provider Katherine Blake Bourgeois MD Primary Care Provider Unavail able Celina Mann DO Primary Care Pro vider Unavailable Mercedes Han MD Primary Care Provider [phone] Celina Mann DO Primary Care Pro vider Unavailable Mercedes Han MD Primary Care Provider [phone] Callum Hernandez DO Primary Care Provider Katherine Lopez Aragon MD Primary Care Provider UnaBuddy Castellanos NP Primary Care Provider Unavail able [facility], Pcp Primary Care Provider UnavailBuddy Stephen NP Primary Care Provider Unavail able Encounter Details Date Type Department Care Team Description 09/07/2013 Patch Setter Report Medical Records [address] [place] [address] Nilton Kumar Social History Tobacco Use Types [...] on filedocumented in this encounter Care Teams Pony Ride Attendant Relationship Specialty Start Date End Date Luciano Skinner MD PCP - General 12/13/10 05/10/14 Blake Rivera MD PCP - General Internal Medicine 05/11/14 03/03/15 Celina Mann, DO PCP - General Internal Medicine 03/04/15 02/06/16 Mercedes Han MD [address] [place] [address] PCP - General Internal Medicine 02/07/16 03/20/16 Celina Mann, PCP - General Internal Medicine 03/21/16 11/23/20 Mercedes Han MD [address] [place] [address] PCP - General Internal Medicine 11/24/20 01/11/21 Callum Hernandez DO [address] [place] [address] PCP - General Internal Medicine 01/12/21 03/19/21 Lopez Brennan MD [address] [place] [address] PCP - General Internal Medicine 03/20/21 10/19/21 Buddy Shaw NP [address] [place] [address] PCP - General Family Practice 10/20/21 01/04/22 [facility], Pcp [address] [place] [address] PCP - General Internal Medicine 01/05/22 11/28/22 Buddy Shaw NP [address] [place] [address] PCP - General Family Practice 11/29/22 documented as of this encounter
--- OUTSIDE RECORDS SUMMARY | 2024-09-26 09:43 | XMS_ITS | Encounter Summary ---
Author Organization [facility] Address [address] [place] [address] Care Team Providers Care Senior Sourcing Manager Name Role Phone Celina Mann DO Primary Care Pro vider Unavailable Mercedes Han MD Primary Care Provider [phone] Callum Hernandez DO Primary Care Provider Lopez Lu MD Primary Care Provider Buddy Foy NP Primary Care Provider Unavail [facility] Primary Care Provider Buddy Marlow NP Primary Care Provider Unavail able Encounter Details Date Type Department Care Team Description 05/23/2020 Pairer Odds Report Medical Records [address] [place] [address] Raul German Social History Tobacco Use Types [...] or suspected to have Coronavirus / COVID-19? Unable to assess 05/18/2020 9:07 AM EST documented as of this encounter Plan of Treatment Not on file documented as of this encounter Visit Diagnoses Not on filedocumented in this encounter Care Teams Senior Sourcing Manager Relationship Specialty Start Date End Date Celina Mann DO PCP - General Internal Medicine 03/21/16 11/23/20 Mercedes Han MD [address] [place] [address] PCP - General Internal Medicine 11/24/20 01/11/21 Callum Hernandez DO [address] [place], [place] [phone] PCP - General Internal Medicine 01/12/21 03/19/21 Lopez Brennan MD [address] [place], [place] [phone] PCP - General Internal Medicine 03/20/21 10/19/21 Buddy Shaw NP [address] [place] [address] PCP - General Family Practice 10/20/21 01/04/22 [facility], Jan [address] [place], [place] [phone] PCP - General Internal Medicine 01/05/22 11/28/22 Buddy Shaw NP [address] [place] [address] PCP - General Family Practice 11/29/22 documented as of this encounter
--- OUTSIDE RECORDS SUMMARY | 2024-09-26 09:43 | XMS_ITS | Encounter Summary ---
Author Organization [facility] Address [address] [place] [address] Care Team Providers Care Clinical Project Leader Name Role Phone Luciano Skinner MD Primary Care Provider Katherine Blake Bourgeois MD Primary Care Provider Unavail able Celina Mann DO Primary Care Pro vider Unavailable Mercedes Han MD Primary Care Provider [phone] Celina Mann DO Primary Care Pro vider Unavailable Mercedes Han MD Primary Care Provider [phone] Callum Hernandez DO Primary Care Provider Katherine Lopez Aragon MD Primary Care Provider UnaBuddy Castellanos NP Primary Care Provider Unavail able [facility], Pcp Primary Care Provider UnavailBuddy Stephen NP Primary Care Provider Unavail able Encounter Details Date Type Department Care Team Description 04/23/2014 Publishing Agent Report Medical Records [address] [place] [address] Leandro Harvey V., DPM Social History Tobacco [...] filedocumented in this encounter Care Teams Clinical Project Leader Relationship Specialty Start Date End Date Luciano Skinner MD PCP - General 12/13/10 05/10/14 Blake Rivera MD PCP - General Internal Medicine 05/11/14 03/03/15 Celina Mann, PCP - General Internal Medicine 03/04/15 02/06/16 Mercedes Han MD [address] [place] [address] PCP - General Internal Medicine 02/07/16 03/20/16 Celina Mann, PCP - General Internal Medicine 03/21/16 11/23/20 Mercedes Han MD [address] [place] [address] PCP - General Internal Medicine 11/24/20 01/11/21 Callum Hernandez DO [address] [place] [address] PCP - General Internal Medicine 01/12/21 03/19/21 Lopez Brennan MD [address] [place] [address] PCP - General Internal Medicine 03/20/21 10/19/21 Buddy Shaw NP [address] [place] [address] PCP - General Family Practice 10/20/21 01/04/22 [facility], [address] [address] PCP - General Internal Medicine 01/05/22 11/28/22 Buddy Shaw NP [address] [place] [address] PCP - General Family Practice 11/29/22 documented as of this encounter
--- OUTSIDE RECORDS SUMMARY | 2024-09-26 09:43 | XMS_ITS | Encounter Summary ---
Author Organization [employer] [facility] Address [address] [place] [address] Care Team Providers Care Machine Greaser Name Role Phone Celina Mann DO Primary Care Pro vider Unavailable Mercedes Han MD Primary Care Provider [phone] Celina Mann DO Primary Care Pro vider Unavailable Mercedes Han MD Primary Care Provider [phone] Callum Hernandez DO Primary Care Provider Lopez Lu MD Primary Care Provider Buddy Foy NP Primary Care Provider Unavail [facility] Primary Care Provider Buddy Marlow NP Primary Care Provider Unavail [facility] Encounter Details Date Type Department Care Team Description 06/01/2015 Release of Information Medical Records [address] [place] [address] Abstract, Provider Social History Tobacco Use Types [...] filedocumented in this encounter Care Teams Machine Greaser Relationship Specialty Start Date End Date Celina Mann DO PCP - General Internal Medicine 03/04/15 02/06/16 Mercedes Han MD [address] [place] [address] PCP - General Internal Medicine 02/07/16 03/20/16 Celina Mann DO PCP - General Internal Medicine 03/21/16 11/23/20 Mercedes Han MD [address] [place] [address] PCP - General Internal Medicine 11/24/20 01/11/21 Callum Hernandez DO [address] [place] [address] PCP - General Internal Medicine 01/12/21 03/19/21 Lopez Brennan MD [address] [place] [address] PCP - General Internal Medicine 03/20/21 10/19/21 Buddy Shaw NP [address] [place] [address] PCP - General Family Practice 10/20/21 01/04/22 [facility], Pcp [address] [place] [address] PCP - General Internal Medicine 01/05/22 11/28/22 Buddy Shaw NP [address] [place] [address] PCP - General Family Practice 11/29/22 documented as of this encounter
--- OUTSIDE RECORDS SUMMARY | 2024-09-26 09:43 | XMS_ITS | Encounter Summary ---
Author Organization [facility] Address [address] [place] [address] Care Team Providers Care Collections Professional Name Role Phone Celina Mann DO Primary Care Pro vider Unavailable Mercedes Han MD Primary Care Provider [phone] Callum Hernandez DO Primary Care Provider Lopez Lu MD Primary Care Provider Buddy Foy NP Primary Care Provider Unavail [facility] Pcp Primary Care Provider Buddy Marlow NP Primary Care Provider Unavail able Encounter Details Date Type Department Care Team Description 04/27/2018 Release of Information Medical Records [address] [place] [address] Abstract, Provider Social History Tobacco Use Types [...] on filedocumented in this encounter Care Teams Collections Professional Relationship Specialty Start Date End Date Celina Mann DO PCP - General Internal Medicine 03/21/16 11/23/20 Mercedes Han MD [address] [place] [address] 31440 PCP - General Internal Medicine 11/24/20 01/11/21 Callum Hernandez DO [address] [place] [address] 40183 PCP - General Internal Medicine 01/12/21 03/19/21 Lopez Brennan MD [address] [place] [address] 81779 PCP - General Internal Medicine 03/20/21 10/19/21 Buddy Shaw NP [address] [place] [address] 10984 PCP - General Family Practice 10/20/21 01/04/22 [facility], Pcp [address] [place] [address] PCP - General Internal Medicine 01/05/22 11/28/22 Buddy Shaw NP [address] [place], [place] [phone] PCP - General Family Practice 11/29/22 documented as of this encounter
--- OUTSIDE RECORDS SUMMARY | 2024-09-26 09:43 | XMS_ITS | Encounter Summary ---
Author Organization [facility] Address [address] [place] [address] Care Team Providers Care Bobbin Marker Name Role Phone Celina Mann DO Primary [...] Description 04/11/2016 Release of Information Medical Records [address] [place] [id number] Abstract, Provider Social History Tobacco Use Types [...] on filedocumented in this encounter Care Teams Bobbin Marker Relationship Specialty Start Date End Date Celina Mann DO PCP - General Internal Medicine 03/21/16 11/23/20 Mercedes Han MD [address] [place] [address] PCP - General Internal Medicine 11/24/20 01/11/21 Callum Hernandez DO [address] [place] [address] PCP - General Internal Medicine 01/12/21 03/19/21 Lpoez Brennan MD [address] [place] [address] PCP - General Internal Medicine 03/20/21 10/19/21 Buddy Shaw NP [address] [place] [address] PCP - General Family Practice 10/20/21 01/04/22 [facility], Pcp [address] [place] [address] PCP - General Internal Medicine 01/05/22 11/28/22 Buddy Shaw NP [address] [place] [address] PCP - General Family Practice 11/29/22 documented as of this encounter
--- OUTSIDE RECORDS SUMMARY | 2024-09-26 09:43 | XMS_ITS | Encounter Summary ---
Author Organization [facility] Address [address] [place] [address] Care Team Providers Care Diamond Blender Name Role Phone Luciano Skinner MD Primary Care Provider Katherine Blake Bourgeois MD Primary Care Provider Unavail able Celina Mann DO Primary Care Pro vider Unavailable Mercedes Han MD Primary Care Provider [phone] Celina Mann DO Primary Care Pro vider Unavailable Mercedes Han MD Primary Care Provider [phone] Callum Hernandez DO Primary Care Provider Katherine Lopez Aragon MD Primary Care Provider UnaBuddy Castellanos NP Primary Care Provider Unavail able [facility], Pcp Primary Care Provider UnavailBuddy Stephen NP Primary Care Provider Unavail able Encounter Details Date Type Department Care Team Description 06/15/2011 Telephone Adult [address] [address] Luciano Skinner MD Social History Tobacco Use [...] on filedocumented in this encounter Care Teams Diamond Blender Relationship Specialty Start Date End Date Luciano Skinner MD PCP - General 12/13/10 05/10/14 Blake Rivera MD PCP - General Internal Medicine 05/11/14 03/03/15 Celina Mann DO PCP - General Internal Medicine 03/04/15 02/06/16 Mercedes Han MD [address] [place], [place] [phone] PCP - General Internal Medicine 02/07/16 03/20/16 Celina Mann, PCP - General Internal Medicine 03/21/16 11/23/20 Mercedes Han MD [address] [place] [address]61 PCP - General Internal Medicine 11/24/20 01/11/21 Callum Hernandez DO [address] [place] [address] 63058 PCP - General Internal Medicine 01/12/21 03/19/21 Lopez Brennan MD [address] [place] [address] 71597 PCP - General Internal Medicine 03/20/21 10/19/21 Buddy Shaw NP [address] [place] [address]662 PCP - General Family Practice 10/20/21 01/04/22 [facility], [address] [address] PCP - General Internal Medicine 01/05/22 11/28/22 Buddy Shaw NP [address] [place] [address] PCP - General Family Practice 11/29/22 documented as of this encounter
--- OUTSIDE RECORDS SUMMARY | 2024-09-26 09:43 | XMS_ITS | Encounter Summary ---
Author Organization [facility] Address [address] [place] [address] Care Team Providers Care Ferryboat Deckhand Name Role Phone Luciano kSinner MD Primary Care Provider Katherine Blake Bourgeois MD Primary Care Provider Unavail able Celina Mann DO Primary Care Pro vider Unavailable Mercedes Han MD Primary Care Provider [phone] Celina Mann DO Primary Care Pro vider Unavailable Mercedes Han MD Primary Care Provider [phone] Callum Hernandez DO Primary Care Provider Katherine Lopez Aragon MD Primary Care Provider UnaBuddy Castellanos NP Primary Care Provider Unavail able [facility], Pcp Primary Care Provider UnavailBuddy Stephen NP Primary Care Provider Unavail able Encounter Details Date Type Department Care Team Description 05/04/2013 Wool Sampler Report Medical Records [address] [place] [address] Nilton Kumar Social History Tobacco Use Types [...] on filedocumented in this encounter Care Teams Ferryboat Deckhand Relationship Specialty Start Date End Date Luciano Skinner MD PCP - General 12/13/10 05/10/14 Blake Rivera MD PCP - General Internal Medicine 05/11/14 03/03/15 Celina Mann, DO PCP - General Internal Medicine 03/04/15 02/06/16 Mercedes Han MD [address] [place] [address]98 PCP - General Internal Medicine 02/07/16 03/20/16 Celina Mann, PCP - General Internal Medicine 03/21/16 11/23/20 Mercedes Han MD [address] [place] [address] 64016 PCP - General Internal Medicine 11/24/20 01/11/21 Callum Hernandez DO [address] [place] [address] 86769 PCP - General Internal Medicine 01/12/21 03/19/21 Lopez Brennan MD [address] [place] [address] 43452 PCP - General Internal Medicine 03/20/21 10/19/21 Buddy Shaw NP [address] [place] [address] 44111 PCP - General Family Practice 10/20/21 01/04/22 [facility], Pcp [address] [place] [address] 35327 PCP - General Internal Medicine 01/05/22 11/28/22 Buddy Shaw NP [address] [place] [address] 82668 PCP - General Family Practice 11/29/22 documented as of this encounter
--- OUTSIDE RECORDS SUMMARY | 2024-09-26 09:43 | XMS_ITS | Encounter Summary ---
Author Organization [facility] Address [address] [place] [address] Care Team Providers Care Supervisor Color Making Name Role Phone Lopez Brennan MD Primary Care Provider Buddy Foy NP Primary Care Provider Unavail able [facility], Pcp Primary Care Provider Buddy Marlow NP Primary Care Provider Unavail able Encounter Details Date Type Department Care Team Description 10/10/2021 Orders Only [facility] Thoracic Surgery [place] [address] [facility] [address] [place] [phone] Simón Hamlin MD [address] [facility] [address] [place] [address] History of tobacco use, presenting hazards to [...] health documented in this encounter Care Teams Supervisor Color Making Relationship Specialty Start Date End Date Lopez Brennan MD PCP - General Internal Medicine 03/20/21 10/19/21 Buddy Shaw NP PCP - General Family Practice 10/20/21 01/04/22 [facility] PCP - General Internal Medicine 01/05/22 11/28/22 Buddy Shaw NP PCP - General Family Practice 11/29/22 documented as of this encounter
--- OUTSIDE RECORDS SUMMARY | 2024-09-26 09:43 | XMS_ITS | Encounter Summary ---
Author Organization [facility] Address [address] [place] [address] Care Team Providers Care Frame Expander Name Role Phone Celina Mann DO Primary Care Pro vider Unavailable Mercedes Han MD Primary Care Provider [phone] Callum Hernandez DO Primary Care Provider Lopez Lu MD Primary Care Provider Buddy Foy NP Primary Care Provider Unavail [facility] Pcp Primary Care Provider Buddy Marlow NP Primary Care Provider Unavail able Encounter Details Date Type Department Care Team Description 11/21/2020 Fire Medic Report Medical Records [address] [place] [address] Center, [facility] [address] [place] [address] Social History Tobacco Use Types Packs/Day Years [...] on filedocumented in this encounter Care Teams Frame Expander Relationship Specialty Start Date End Date Celina Mann DO PCP - General Internal Medicine 03/21/16 11/23/20 Mercedes Han MD [address] [place], [place] [phone] PCP - General Internal Medicine 11/24/20 01/11/21 Callum Hernandez DO [address] [place] [address] PCP - General Internal Medicine 01/12/21 03/19/21 Lopez Brennan MD [address] [place] [address] PCP - General Internal Medicine 03/20/21 10/19/21 Buddy Shaw NP [address] [place] [address] PCP - General Family Practice 10/20/21 01/04/22 [facility], Pcp [address] [place] [address] PCP - General Internal Medicine 01/05/22 11/28/22 Buddy Shaw NP [address] [place] [address] PCP - General Family Practice 11/29/22 documented as of this encounter
--- OUTSIDE RECORDS SUMMARY | 2024-09-26 09:43 | XMS_ITS | Encounter Summary ---
Author Organization [facility] Address [address] [place] [address] Care Team Providers Care Retort Load Expediter Name Role Phone Luciano Skinner MD Primary Care Provider Katherine Blake Bourgeois MD Primary Care Provider Unavail able Celina Mann DO Primary Care Pro vider Unavailable Mercedes Han MD Primary Care Provider [phone] Celina Mann DO Primary Care Pro vider Unavailable Mercedes Han MD Primary Care Provider [phone] Callum Hernandez DO Primary Care Provider Katherine Lopez Aragon MD Primary Care Provider UnaBuddy Castellanos NP Primary Care Provider Unavail able [facility], Pcp Primary Care Provider UnavailBuddy Stephen NP Primary Care Provider Unavail able Encounter Details Date Type Department Care Team Description 04/10/2013 Photoengraving Finisher Report Medical Records [address] [place] [address] Eric Ladd MD Social History Tobacco Use [...] on filedocumented in this encounter Care Teams Retort Load Expediter Relationship Specialty Start Date End Date Luciano Skinner MD PCP - General 12/13/10 05/10/14 Blake Rivera MD PCP - General Internal Medicine 05/11/14 03/03/15 Celina Mann, DO PCP - General Internal Medicine 03/04/15 02/06/16 Mercedes Han MD [address] [place] [address]396 PCP - General Internal Medicine 02/07/16 03/20/16 Celina Mann, PCP - General Internal Medicine 03/21/16 11/23/20 Mercedes Han MD [address] [place] [address] 06724 PCP - General Internal Medicine 11/24/20 01/11/21 Callum Hernandez, [address] [place] [address]37 PCP - General Internal Medicine 01/12/21 03/19/21 Lopez Brennan MD [address] [place] [address] 70921 PCP - General Internal Medicine 03/20/21 10/19/21 Buddy Shaw NP [address] [place] [address] 97477 PCP - General Family Practice 10/20/21 01/04/22 [facility], Pcp [address] [place] [address] 60539 PCP - General Internal Medicine 01/05/22 11/28/22 Buddy Shaw NP [address] [place] [address] 73[address] PCP - General Family Practice 11/29/22 documented as of this encounter
--- OUTSIDE RECORDS SUMMARY | 2024-09-26 09:43 | XMS_ITS | Encounter Summary ---
Author Organization [facility] Address [address] [place] [address] Care Team Providers Care Periodontal Assistant Name Role Phone Celina Mann DO Primary Care Pro vider Unavailable Mercedes Han MD Primary Care Provider [phone] Callum Hernandez DO Primary Care Provider Lopez Lu MD Primary Care Provider Buddy Foy NP Primary Care Provider Unavail [facility] Pcp Primary Care Provider Buddy Marlow NP Primary Care Provider Unavail able Encounter Details Date Type Department Care Team Description 04/10/2019 Pt. Non Urgent Medic al Question Adult Medicine [address] [address] Celina Mann DO Social History Tobacco Use [...] Miscellaneous Notes * Telephone Encounter - Kaylyn Carablalo M.A. - 04/13/2019 8:43 AM ESTFrom: Nereida [...] on filedocumented in this encounter Care Teams Periodontal Assistant Relationship Specialty Start Date End Date Celina Mann DO PCP - General Internal Medicine 03/21/16 11/23/20 Mercedes Han MD [address] [place] [address] PCP - General Internal Medicine 11/24/20 01/11/21 Callum Hernandez DO [address] [place] [address] PCP - General Internal Medicine 01/12/21 03/19/21 Loepz Brennan MD [address] [place] [address] PCP - General Internal Medicine 03/20/21 10/19/21 Buddy Shaw NP [address] [place] [address] PCP - General Family Practice 10/20/21 01/04/22 [facility], Pcp [address] [place], [place] [phone] PCP - General Internal Medicine 01/05/22 11/28/22 Buddy Shaw NP [address] [place] [address] PCP - General Family Practice 11/29/22 documented as of this encounter
--- OUTSIDE RECORDS SUMMARY | 2024-09-26 09:43 | XMS_ITS | Encounter Summary ---
Author Organization [facility] Address [address] [place] [address] Care Team Providers Care Emr Implementation Specialist Name Role Phone Celina Mann DO Primary Care Pro vider Unavailable Mercedes Han MD Primary Care Provider [phone] Callum Hernandez DO Primary Care Provider Lopez Lu MD Primary Care Provider Buddy Foy NP Primary Care Provider Unavail able [facility], Pcp Primary Care Provider UnavailBuddy Stephen NP Primary Care Provider Unavail able Reason for Visit * Reason Onset Date Comments Vacuum Bottle Assembler Feedback 07/28/2018 PVC Encounter Details Date Type Department Care Team Description 07/28/2018 Telephone Adult Medicine [address] [address] Celina Mann DO Vacuum Bottle Assembler Feedback (PVC) Social History Tobacco Use Types [...] referral required per patient's insurance. Order faxed [facility] [phone] and office notes can be pulled from the office by Epic Link [facility] Cardiology [phone] Notification letter mailed to patient, PVC will contact patient with appointment information documented in this encounter Plan of Treatment Not on file documented as of this encounter Visit Diagnoses Not on filedocumented in this encounter Care Teams Emr Implementation Specialist Relationship Specialty Start Date End Date Celina Mann DO PCP - General Internal Medicine 03/21/16 11/23/20 Mercedes Han MD [address] [place], [place] [phone] PCP - General Internal Medicine 11/24/20 01/11/21 Callum Hernandez DO [address] [place] [address] PCP - General Internal Medicine 01/12/21 03/19/21 Lopez Brennan MD [address] [place] [address] 63820 PCP - General Internal Medicine 03/20/21 10/19/21 Buddy Shaw NP [address] [place] [address] 61832 PCP - General Family Practice 10/20/21 01/04/[address] [address] PCP - General Internal Medicine 01/05/22 11/28/22 Buddy Shaw NP [address] [place] [address] PCP - General Family Practice 11/29/22 documented as of this encounter
--- OUTSIDE RECORDS SUMMARY | 2024-09-26 09:43 | XMS_ITS | Encounter Summary ---
Author Organization [employer] [facility] Address [address] [place] [address] Care Team Providers Care Inseam Leveler Name Role Phone Blake Rivera MD Primary Care Provider Unavail able Celina Mann DO Primary Care Pro vider Unavailable Mercedes Han MD Primary Care Provider [phone] Celina Mann DO Primary Care Pro vider Unavailable Mercedes Han MD Primary Care Provider [phone] Callum Hernandez DO Primary Care Provider Lopez Lu MD Primary Care Provider Buddy Foy NP Primary Care Provider Unavail [facility] Pcp Primary Care Provider UnavailBuddy Stephen NP Primary Care Provider Unavail able Encounter Details Date Type Department Care Team Description 07/21/2014 SUGAR SAMPLER/MassPat Report Medical Records [address] [place] [address] Abstract, Provider Social History Tobacco Use Types [...] on filedocumented in this encounter Care Teams Inseam Leveler Relationship Specialty Start Date End Date Blake Rivera MD PCP - General Internal Medicine 05/11/14 03/03/15 Celina Mann DO PCP - General Internal Medicine 03/04/15 02/06/16 Mercedes Han MD [address] [place] [address] PCP - General Internal Medicine 02/07/16 03/20/16 Celina Mann DO PCP - General Internal Medicine 03/21/16 11/23/20 Mercedes Han MD [address] [place] [address]3625 PCP - General Internal Medicine 11/24/20 01/11/21 Callum Hernandez DO [address] [place] [address]32 PCP - General Internal Medicine 01/12/21 03/19/21 Lopez Brennan MD [address] [place] [address] 90302 PCP - General Internal Medicine 03/20/21 10/19/21 Buddy Shaw NP [address] [place] [address]384 PCP - General Family Practice 10/20/21 [facility]/04/22 [facility] [address] [place] [address]56 PCP - General Internal Medicine 01/05/22 11/28/22 Buddy Shaw NP [address] [place] [address]6510 PCP - General Family Practice 11/29/22 documented as of this encounter
--- OUTSIDE RECORDS SUMMARY | 2024-09-26 09:43 | XMS_ITS | Encounter Summary ---
Author Organization [facility] Address [address] [place] [address] Care Team Providers Care Enterprise Software Developer Name Role Phone Celina Mann DO Primary Care Pro vider Unavailable Mercedes Han MD Primary Care Provider [phone] Callum Hernandez DO Primary Care Provider Lopez Lu MD Primary Care Provider Buddy Foy NP Primary Care Provider Unavail [facility] Pcp Primary Care Provider Buddy Marlow NP Primary Care Provider Unavail able Encounter Details Date Type Department Care Team Description 07/17/2016 Business Database Analyst Report Medical Records [address] [place] [address] Leandro Harvey V., DPHawa Social History Tobacco [...] on filedocumented in this encounter Care Teams Enterprise Software Developer Relationship Specialty Start Date End Date Celina Mann DO PCP - General Internal Medicine 03/21/16 11/23/20 Mercedes Han MD [address] [place] [address] [phone] PCP - General Internal Medicine 11/24/20 01/11/21 Callum Hernandez DO [address] [place] [address] PCP - General Internal Medicine 01/12/21 03/19/21 Lopez Brennan MD [address] [place] [address] PCP - General Internal Medicine 03/20/21 10/19/21 Buddy Shaw NP [address] [place] [address]681 PCP - General Family Practice 10/20/21 01/04/22 [facility], Pcp [address] [place] [address]96 PCP - General Internal Medicine 01/05/22 11/28/22 Buddy Shaw NP [address] [place] [address] PCP - General Family Practice 11/29/22 documented as of this encounter
--- OUTSIDE RECORDS SUMMARY | 2024-09-26 09:43 | XMS_ITS | Encounter Summary ---
Author Organization [facility] Address [address] [place] [address] Care Team Providers Care Lumber Tying Machine Operator Name Role Phone Celina Mann DO Primary Care Pro vider Unavailable Mercedes Han MD Primary Care Provider [phone] Callum Hernandez DO Primary Care Provider Lopez Lu MD Primary Care Provider Buddy Foy NP Primary Care Provider Unavail able [facility], Pcp Primary Care Provider UnavailBuddy Stephen NP Primary Care Provider Unavail able Reason for Visit * Reason Onset Date Comments DME Request 01/15/2018 Encounter Details Date Type Department Care Team Description 01/15/2018 Telephone Pulmonology - [place] [address] [facility] [address] [place] [address] [facility] [address] [place] [address] DME Request Social History Tobacco Use Types [...] the pt due to change in insurance [phone] documented in this encounter Plan of Treatment Not on file documented as of this encounter Visit Diagnoses Not on filedocumented in this encounter Care Teams Lumber Tying Machine Operator Relationship Specialty Start Date End Date Celina Mann DO PCP - General Internal Medicine 03/21/16 11/23/20 Mercedes Han MD [address] [place], [place] [phone] PCP - General Internal Medicine 11/24/20 01/11/21 Callum Hernandez DO [address] [place] [address] PCP - General Internal Medicine 01/12/21 03/19/21 Lopez Brennan MD [address] [place] [address] PCP - General Internal Medicine 03/20/21 10/19/21 Buddy Shaw NP [address] [place], [place] [phone] PCP - General Family Practice 10/20/21 01/04/22 [facility], Pcp [address] [place] [address] PCP - General Internal Medicine 01/05/22 11/28/22 Buddy Shaw NP [address] [place] [address] PCP - General Family Practice 11/29/22 documented as of this encounter
--- OUTSIDE RECORDS SUMMARY | 2024-09-26 09:43 | XMS_ITS | Encounter Summary ---
Author Organization [employer] [facility] Address [address] [place] [address] Care Team Providers Care Printed Circuit Photographer Name Role Phone Celina Mann DO Primary Care Pro vider Unavailable Mercedes Han MD Primary Care Provider [phone] Callum Hernandez DO Primary Care Provider Lopez Lu MD Primary Care Provider Buddy Foy NP Primary Care Provider Unavail able [facility] Pcp Primary Care Provider Buddy Marlow NP Primary Care Provider Unavail able Encounter Details Date Type Department Care Team Description 09/09/2018 Freight Flagman Report Medical Records [address] [place] [address] Nola Peacock PA-C [address] [place] [phone] Social History Tobacco Use Types Packs/Day [...] on filedocumented in this encounter Care Teams Printed Circuit Photographer Relationship Specialty Start Date End Date Celina Mann DO PCP - General Internal Medicine 03/21/16 11/23/20 Mercedes Han MD [address] [place] [address] PCP - General Internal Medicine 11/24/20 01/11/21 Callum Hernandez DO [address] [place] [address] PCP - General Internal Medicine 01/12/21 03/19/21 Lopez Brennan MD [address] [place], [place] [phone] PCP - General Internal Medicine 03/20/21 10/19/21 Buddy Shaw NP [address] [place] [address] PCP - General Family Practice 10/20/21 01/04/22 [facility] Pcp [address] [place] [address] PCP - General Internal Medicine 01/05/22 11/28/22 Buddy Shaw NP [address] [place] [address] PCP - General Family Practice 11/29/22 documented as of this encounter
--- OUTSIDE RECORDS SUMMARY | 2024-09-26 09:43 | XMS_ITS | Encounter Summary ---
Author Organization [facility] Address [address] [place] [address] Care Team Providers Care Blow Moulding Machine Operator Name Role Phone Celina Mann DO Primary Care Pro vider Unavailable Mercedes Han MD Primary Care Provider [phone] Callum Hernandez DO Primary Care Provider Lopez Lu MD Primary Care Provider Buddy Foy NP Primary Care Provider Unavail [facility] Pcp Primary Care Provider Buddy Marlow NP Primary Care Provider Unavail able Encounter Details Date Type Department Care Team Description 04/28/2018 Vp Scientific Affairs Report Medical Records [address] [place] [address] 12433 Tristen Díaz MD Social History Tobacco Use [...] on filedocumented in this encounter Care Teams Blow Moulding Machine Operator Relationship Specialty Start Date End Date Celina Mann DO PCP - General Internal Medicine 03/21/16 11/23/20 Mercedes Han MD [address] [place] [address] PCP - General Internal Medicine 11/24/20 01/11/21 Callum Hernandez DO [address] [place] [address] PCP - General Internal Medicine 01/12/21 03/19/21 Lopez Brennan MD [address] [place], [place] [phone] PCP - General Internal Medicine 03/20/21 10/19/21 Buddy Shaw NP [address] [place] [address] PCP - General Family Practice 10/20/21 01/04/22 [facility]ly [facility] [place] [id number] PCP - General Internal Medicine 01/05/22 11/28/22 Buddy Shaw NP [address] [place] [address] PCP - General Family Practice 11/29/22 documented as of this encounter
--- OUTSIDE RECORDS SUMMARY | 2024-09-26 09:43 | XMS_ITS | Encounter Summary ---
Author Organization [facility] Address [address] [place] [address] Care Team Providers Care Oncology Specialist Name Role Phone Luciano Skinner MD Primary Care Provider Katherine Blake Bourgeois MD Primary Care Provider Unavail able Celina Mann DO Primary Care Pro vider Unavailable Mercedes Han MD Primary Care Provider + [phone] Celina Mann DO Primary Care Pro vider Unavailable Mercedes Han MD Primary Care Provider + [phone] Callum Hernandez DO Primary Care Provider Katherine Lopez Aragon MD Primary Care Provider Buddy Foy NP Primary Care Provider Unavail able [facility] Primary Care Provider UnavailBuddy Stephen NP Primary Care Provider Unavail able Encounter Details Date Type Department Care Team Description 04/09/2013 Release of Information Medical Records [address] [place] [address] Abstract, Provider Social History Tobacco Use Types [...] on filedocumented in this encounter Care Teams Oncology Specialist Relationship Specialty Start Date End Date Luciano Skinner MD PCP - General 12/13/10 05/10/14 Blake Rivera MD PCP - General Internal Medicine 05/11/14 03/03/15 Celina Mann, DO PCP - General Internal Medicine 03/04/15 02/06/16 Mercedes Han MD [address] [place] [address] PCP - General Internal Medicine 02/07/16 03/20/16 Celina Mann, PCP - General Internal Medicine 03/21/16 11/23/20 Mercedes Han MD [address] [place] [address] 7[address]22 PCP - General Internal Medicine 11/24/20 01/11/21 Callum Hernandez DO [address] [place] [address] 90513 PCP - General Internal Medicine 01/12/21 03/19/21 Lopez Brennan MD [address] [place] [address] 93008 PCP - General Internal Medicine 03/20/21 10/19/21 Buddy Shaw NP [address] [place] [address] 68024 PCP - General Family Practice 10/20/21 01/04/22 [facility], Pcp [address] [place] [address] 37327 PCP - General Internal Medicine 01/05/22 11/28/22 Buddy Shaw NP [address] [place] [address] 20445 PCP - General Family Practice 11/29/22 documented as of this encounter
--- OUTSIDE RECORDS SUMMARY | 2024-09-26 09:43 | XMS_ITS | Encounter Summary ---
Author Organization [facility] Address [address] [place] [address] Care Team Providers Care Social Media Marketing Analyst Name Role Phone Celina Mann DO Primary Care Pro vider Unavailable Mercedes Han MD Primary Care Provider [phone] Callum Hernandez DO Primary Care Provider Lopez Lu MD Primary Care Provider Buddy Foy NP Primary Care Provider Unavail [facility] Pcp Primary Care Provider Buddy Marlow NP Primary Care Provider Unavail able Encounter Details Date Type Department Care Team Description 08/25/2018 Release of Information Medical Records [address] [place] [address]34 Abstract, Provider Social History Tobacco Use Types [...] on filedocumented in this encounter Care Teams Social Media Marketing Analyst Relationship Specialty Start Date End Date Celina Mann DO PCP - General Internal Medicine 03/21/16 11/23/20 Mercedes Han MD [address] [place] [address] 78646 PCP - General Internal Medicine 11/24/20 01/11/21 Callum Hernandez DO [address] [place] [address] 66132 PCP - General Internal Medicine 01/12/21 03/19/21 Lopez Brennan MD [address] [place] [address] 20878 PCP - General Internal Medicine 03/20/21 10/19/21 Buddy Shaw NP [address] [place] [address] 19801 PCP - General Family Practice 10/20/21 01/04/22 [facility], Pcp [address] [place] [address] 0[address]21 PCP - General Internal Medicine 01/05/22 11/28/22 Buddy Shaw NP [address] [place], [place] [phone] PCP - General Family Practice 11/29/22 documented as of this encounter
--- OUTSIDE RECORDS SUMMARY | 2024-09-26 09:43 | XMS_ITS | Encounter Summary ---
Author Organization [facility] Address [address] [place] [address] Care Team Providers Care Tax Clerk Name Role Phone Celina Mann DO Primary Care Pro vider Unavailable Mercedes Han MD Primary Care Provider [phone] Callum Hernandez DO Primary Care Provider Lopez Lu MD Primary Care Provider Buddy Foy NP Primary Care Provider Unavail able [facility] Pcp Primary Care Provider Buddy Marlow NP Primary Care Provider Unavail able Encounter Details Date Type Department Care Team Description 05/08/2016 Pt. Non Urgent Medic al Question Physiatry - [place] [address] [place] [address] Sammy Mcintyre DO Social History Tobacco Use [...] on filedocumented in this encounter Care Teams Tax Clerk Relationship Specialty Start Date End Date Celina Mann DO PCP - General Internal Medicine 03/21/16 11/23/20 Mercedes Han MD [address] [place] [address] PCP - General Internal Medicine 11/24/20 01/11/21 Callum Hernandez DO [address] [place] [address]87 PCP - General Internal Medicine 01/12/21 03/19/21 Lopez Brennan MD [address] [place] [address] 66449 PCP - General Internal Medicine 03/20/21 10/19/21 Buddy Shaw NP [address] [place] [address] 12318 PCP - General Family Practice 10/20/21 01/04/[address] [address] PCP - General Internal Medicine 01/05/22 11/28/22 Buddy Shaw NP [address] [place] [address] 25982 PCP - General Family Practice 11/29/22 documented as of this encounter
--- OUTSIDE RECORDS SUMMARY | 2024-09-26 09:43 | XMS_ITS | Encounter Summary ---
Author Organization [facility] Address [address] [place] [address] Care Team Providers Care Railroad Yard Worker Name Role Phone Celina Mann DO Primary Care Pro vider Unavailable Mercedes Han MD Primary Care Provider [phone] Callum Hernandez DO Primary Care Provider Lopez Lu MD Primary Care Provider Buddy Foy NP Primary Care Provider Unavail [facility] Pcp Primary Care Provider Buddy Marlow NP Primary Care Provider Unavail able Encounter Details Date Type Department Care Team Description 01/01/2020 Pt. Non Urgent Medic al Question Adult Medicine [address] [address] Celina Mann DO Social History Tobacco Use [...] on filedocumented in this encounter Care Teams Railroad Yard Worker Relationship Specialty Start Date End Date Celina Mann DO PCP - General Internal Medicine 03/21/16 11/23/20 Mercedes Han MD [address] [place] [address] PCP - General Internal Medicine 11/24/20 01/11/21 Callum Hernandez DO [address] [place] [address] PCP - General Internal Medicine 01/12/21 03/19/21 Lopez Brennan MD [address] [place] [address] PCP - General Internal Medicine 03/20/21 10/19/21 Buddy Shaw NP [address] [place] [address] PCP - General Family Practice 10/20/21 01/04/[address] [address] PCP - General Internal Medicine 01/05/22 11/28/22 Buddy Shaw NP [address] [place] [address] PCP - General Family Practice 11/29/22 documented as of this encounter
--- OUTSIDE RECORDS SUMMARY | 2024-09-26 09:43 | XMS_ITS | Encounter Summary ---
Author Organization [facility] Address [address] [place] [address] Care Team Providers Care Siding Applicator Name Role Phone Luciano Skinner MD Primary Care Provider Katherine Blake Bourgeois MD Primary Care Provider Unavail able Celina Mann DO Primary Care Pro vider Unavailable Mercedes Han MD Primary Care Provider + [phone] Celina Mann DO Primary Care Pro vider Unavailable Mercedes Han MD Primary Care Provider + [phone] Callum Hernandez DO Primary Care Provider Katherine Lopez Aragon MD Primary Care Provider Buddy Foy NP Primary Care Provider Unavail able [facility] Primary Care Provider UnavailBuddy Stephen NP Primary Care Provider Unavail able Encounter Details Date Type Department Care Team Description 03/15/2014 Engineering Group Leader Report Medical Records [address] [place] [address] Social History Tobacco Use Types Packs/Day Years [...] on filedocumented in this encounter Care Teams Siding Applicator Relationship Specialty Start Date End Date Luciano Skinner MD PCP - General 12/13/10 05/10/14 Blake Rivera MD PCP - General Internal Medicine 05/11/14 03/03/15 Celina Mann, DO PCP - General Internal Medicine 03/04/15 02/06/16 Mercedes Han MD [address] [place] [address] PCP - General Internal Medicine 02/07/16 03/20/16 Celina Mann, PCP - General Internal Medicine 03/21/16 11/23/20 Mercedes Han MD [address] [place] [address] PCP - General Internal Medicine 11/24/20 01/11/21 Callum Hernandez DO [address] [place] [address] 67[address] PCP - General Internal Medicine 01/12/21 03/19/21 Lopez Brennan MD [address] [place] [address]54 PCP - General Internal Medicine 03/20/21 10/19/21 Buddy Shaw NP [address] [place] [address] 35659 PCP - General Family Practice 10/20/21 01/04/22 [facility], Pcp [address] [place] [address]4042 PCP - General Internal Medicine 01/05/22 11/28/22 Buddy Shaw NP [address] [place] [address] PCP - General Family Practice 11/29/22 documented as of this encounter
--- OUTSIDE RECORDS SUMMARY | 2024-09-26 09:43 | XMS_ITS | Encounter Summary ---
Author Organization [facility] Address [address] [place] [address] Care Team Providers Care Making Department Preparer Name Role Phone Luciano Skinner MD Primary Care Provider Katherine Javed Lindsay MD Primary Care Provider UnaBlake Traore MD Primary Care Provider Unavail able Celina Mann DO Primary Care Pro vider Unavailable Mercedes Han MD Primary Care Provider [phone] Celina Mann DO Primary Care Pro vider Unavailable Mercedes Han MD Primary Care Provider [phone] Callum Hernandez DO Primary Care Provider Katherine Lopez Aragon MD Primary Care Provider Buddy Foy NP Primary Care Provider Unavail able [facility] Primary Care Provider UnavailBuddy Stephen NP Primary Care Provider Unavail able Encounter Details Date Type Department Care Team Description 06/28/2010 Manufacturing Engineering Technician Report Medical Records [address] [place] [address] Chi Pierre Social History Tobacco Use Types [...] on filedocumented in this encounter Care Teams Making Department Preparer Relationship Specialty Start Date End Date Brody, Luciano M., MD PCP - General 12/13/10 05/10/14 Javed Kulkarni MD PCP - General 03/15/00 12/12/10 Blake Rivera MD PCP - General Internal Medicine 05/11/14 03/03/15 Celina Mann, PCP - General Internal Medicine 03/04/15 02/06/16 Mercedes Han MD [address] [place] [address] PCP - General Internal Medicine 02/07/16 03/20/16 Celina Mann, DO PCP - General Internal Medicine 03/21/16 11/23/20 Mercedes Han MD [address] [place] [address] PCP - General Internal Medicine 11/24/20 01/11/21 Callum Hernandez DO [address] [place], [place] [phone] PCP - General Internal Medicine 01/12/21 03/19/21 Lopez Brennan MD [address] [place] [address] 62071 PCP - General Internal Medicine 03/20/21 10/19/21 Buddy Shaw NP [address] [place] [address] 33880 PCP - General Family Practice 10/20/21 01/04/22 [facility], Pcp [address] [place] [address] 29111 PCP - General Internal Medicine 01/05/22 11/28/22 Buddy Shaw NP [address] [place] [address] 10117 PCP - General Family Practice 11/29/22 documented as of this encounter
--- OUTSIDE RECORDS SUMMARY | 2024-09-26 09:43 | XMS_ITS | Encounter Summary ---
Author Organization [facility] Address [address] [place] [address] Care Team Providers Care Grain Sampler Name Role Phone Buddy Shaw DIRECTOR MEDICAL ECONOMICS Primary Care Provider Unavail able [facility], Pcp Primary Care Provider Unavailabl Buddy Irving DIRECTOR MEDICAL ECONOMICS Primary Care Provider Unavail able Reason for Visit * Reason Onset Date Comments DME Request 10/26/2021 Encounter Details Date Type Department Care Team Description 10/26/2021 Telephone Pulmonology - [place] [address] [facility] [address] [place] [address] [facility] [address] [place] [address] DME Request Social History Tobacco Use Types [...] encounter Miscellaneous Notes * Telephone Encounter - Shelleyporfirio Dewey - 10/26/2021 10:34 AM EDT Done faxed order to [facility] for replacement machine documented in this encounter Plan of Treatment Not on file documented as of this encounter Visit Diagnoses Not on filedocumented in this encounter Care Teams Grain Sampler Relationship Specialty Start Date End Date Buddy Shaw NP PCP - General Family Practice 10/20/21 01/04/22 [facility], Pcp PCP - General Internal Medicine 01/05/22 11/28/22 Buddy Shaw NP PCP - General Family Practice 11/29/22 documented as of this encounter
--- OUTSIDE RECORDS SUMMARY | 2024-09-26 09:43 | XMS_ITS | Encounter Summary ---
Author Organization [facility] Address [address] [place] [address] Care Team Providers Care Call Out Operator Name Role Phone Luciano Michelle MD Primary Care Provider Katherine Blake Bourgeois MD Primary Care Provider Unavail able Celina Mann DO Primary Care Pro vider Unavailable Mercedes Han MD Primary Care Provider [phone] Celina Mann DO Primary Care Pro vider Unavailable Mercedes Han MD Primary Care Provider [phone] Callum Hernandez DO Primary Care Provider Ktaherine Lopez Aragon MD Primary Care Provider UnaBuddy Castellanos NP Primary Care Provider Unavail able [facility], Pcp Primary Care Provider UnavailBuddy Stephen NP Primary Care Provider Unavail able Reason for Visit * Reason Onset Date Comments TEST RESULTS 03/29/2014 Encounter Details Date Type Department Care Team Description 03/29/2014 Telephone Adult Medicine [address] [address] Luciano Michelle MD TEST RESULTS Social History Tobacco Use Types Packs/Day Years [...] Miscellaneous Notes * Telephone Encounter - Luciano Michelle MD - 03/29/2014 3:26 PM EDT Please advise her x-ray was unremarkable * Telephone Encounter - Cristal Mccarthy - 03/29/2014 1:21 PM EDT Inform patient: ANY URGENT OR ABNORMAL RESULTS WIILL RESULT IN A CALL BACK TO THE PATIENT LAXMI. Type of test: :x-ray foot Date test was performed: 03-25-2014 Where was the test performed: [place] Who ordered this test?: dr michelle Is the doctor here today?: YES Can the message wait until the doctor returns?: NO IF PATIENT'S PCP IS NOT IN INSTRUCT PATIENT THAT THEY WILL RECEIVE A CALL BACK WHEN THE PCP IS IN THE OFFICE NEXT. documented in this encounter Plan of Treatment Not on file documented as of this encounter Visit Diagnoses Not on filedocumented in this encounter Care Teams Call Out Operator Relationship Specialty Start Date End Date Luciano Michelle MD PCP - General 12/13/10 05/10/14 Blake Rivera MD PCP - General Internal Medicine 05/11/14 03/03/15 Celina Mann DO PCP - General Internal Medicine 03/04/15 02/06/16 Mercedes Han MD [address] [place] [address] PCP - General Internal Medicine 02/07/16 03/20/16 Celina Mann DO PCP - General Internal Medicine 03/21/16 11/23/20 Mercedes Han MD [address] [place] [address] 10485 PCP - General Internal Medicine 11/24/20 01/11/21 Callum Hernandez DO [address] [place] [address]8783 PCP - General Internal Medicine 01/12/21 03/19/21 Lopez Brennan MD [address] [place] [address] PCP - General Internal Medicine 03/20/21 10/19/21 Buddy Shaw NP [address] [place] [address] PCP - General Family Practice 10/20/21 01/04/22 [facility], Pcp [address] [place] [address] PCP - General Internal Medicine 01/05/22 11/28/22 Buddy Shaw NP [address] [place] [address] PCP - General Family Practice 11/29/22 documented as of this encounter
--- OUTSIDE RECORDS SUMMARY | 2024-09-26 09:43 | XMS_ITS | Encounter Summary ---
Author Organization [facility] Address [address] [place] [address] Care Team Providers Care Hand Loom Weaver Name Role Phone Celina Mann DO Primary Care Pro vider Unavailable Mercedes Han MD Primary Care Provider [phone] Callum Hernandez DO Primary Care Provider Lopez Lu MD Primary Care Provider Buddy Foy NP Primary Care Provider Unavail able [facility], Pcp Primary Care Provider Buddy Marlow NP Primary Care Provider Unavail able Reason for Referral * EXTERNAL (Routine) - Authorized/Booked Specialty Diagnoses / Procedures Referred By Kailey dominguez Referred To Contact Neurology Procedures REFERRAL TO NEUROLOGY Celina Mann DO [address] [place] [address] Tristen Díaz MD Referral ID Status Reason Start Date Expiration Date V isits Requested Visits Authorized SEE NOTE Authorized/B ooked 09/12/2016 12/19/2016 1 1 Encounter Details Date Type Department Care Team Description 09/12/2016 Orders Only Adult Medicine [address] [phone] Celina Mann DO Social History Tobacco Use [...] on filedocumented in this encounter Care Teams Hand Loom Weaver Relationship Specialty Start Date End Date Celina Mann DO PCP - General Internal Medicine 03/21/16 11/23/20 Mercedes Han MD [address] [place] [address] PCP - General Internal Medicine 11/24/20 01/11/21 Callum Hernandez DO [address] [place] [address] PCP - General Internal Medicine 01/12/21 03/19/21 Lopez Brennan MD [address] [place] [address] PCP - General Internal Medicine 03/20/21 10/19/21 Buddy Shaw NP [address] [place] [address]853 PCP - General Family Practice 10/20/21 01/04/22 [place] [address] PCP - General Internal Medicine 01/05/22 11/28/22 Buddy Shaw NP [address] [place] [address] PCP - General Family Practice 11/29/22 documented as of this encounter
--- OUTSIDE RECORDS SUMMARY | 2024-09-26 09:43 | XMS_ITS | Encounter Summary ---
Author Organization [facility] Address [address] [place] [address] Care Team Providers Care Elementary School Music Teacher Name Role Phone Celina Mann DO Primary Care Pro vider Unavailable Mercedes Han MD Primary Care Provider [phone] Callum Hernandez DO Primary Care Provider Lopez Lu MD Primary Care Provider Buddy Foy NP Primary Care Provider Unavail able [facility] Pcp Primary Care Provider Buddy Marlow NP Primary Care Provider Unavail able Encounter Details Date Type Department Care Team Description 10/30/2019 Mathematics Instructor Report Medical Records [address] [place] [address] Megan Ramírez MD [address] [place] [address] Social History Tobacco Use Types Packs/Day Years [...] on filedocumented in this encounter Care Teams Elementary School Music Teacher Relationship Specialty Start Date End Date Celina Mann DO PCP - General Internal Medicine 03/21/16 11/23/20 Mercedes Han MD [address] [place], [place] [phone] PCP - General Internal Medicine 11/24/20 01/11/21 Callum Hernandez DO [address] [place], [place] [phone] PCP - General Internal Medicine 01/12/21 03/19/21 Lopez Brennan MD [address] [place], [place] [address] PCP - General Internal Medicine 03/20/21 10/19/21 Buddy Shaw NP [address] [place], [place] [phone] PCP - General Family Practice 10/20/21 01/04/22 [facility] [place] [address] PCP - General Internal Medicine 01/05/22 11/28/22 Buddy Shaw NP [address] [place] [address] PCP - General Family Practice 11/29/22 documented as of this encounter
--- OUTSIDE RECORDS SUMMARY | 2024-09-26 09:43 | XMS_ITS | Encounter Summary ---
Author Organization [facility] Address [address] [place] [address] Care Team Providers Care Fuel Pilot Engineer Name Role Phone Luciano Skinner MD Primary Care Provider Katherine Blake Bourgeois MD Primary Care Provider Unavail able Celina Mann DO Primary Care Pro vider Unavailable Mercedes Han MD Primary Care Provider [phone] Celina Mann DO Primary Care Pro vider Unavailable Mercedes Han MD Primary Care Provider + [phone] Callum Hernandez DO Primary Care Provider Katherine Lopez Aragon MD Primary Care Provider UnaBuddy Castellanos NP Primary Care Provider Unavail able [facility], Pcp Primary Care Provider UnavailBuddy Stephen NP Primary Care Provider Unavail able Encounter Details Date Type Department Care Team Description 06/07/2012 Pt. Non Urgent Medical Question Physiatry - [place] [address] [place] [address] Sammy Mcintyre DO Lumbar radiculitis (Primary Dx) [...] unspecified documented in this encounter Care Teams Fuel Pilot Engineer Relationship Specialty Start Date End Date Luciano Skinner MD PCP - General 12/13/10 05/10/14 Blake Rivera MD PCP - General Internal Medicine 05/11/14 03/03/15 Celina Mann DO PCP - General Internal Medicine 03/04/15 02/06/16 Mercedes Han MD [address] [place] [address] PCP - General Internal Medicine 02/07/16 03/20/16 Celina Mann DO PCP - General Internal Medicine 03/21/16 11/23/20 Mercedes Han MD [address] [place] [address] 65053 PCP - General Internal Medicine 11/24/20 01/11/21 Callum Hernandez DO [address] [place] [address] 20748 PCP - General Internal Medicine 01/12/21 03/19/21 Lopez Brennan MD [address] [place] [address] PCP - General Internal Medicine 03/20/21 10/19/21 Buddy Shaw NP [address] [place] [address] PCP - General Family Practice 10/20/21 01/04/22 [facility], Pcp [address] [place] [address] PCP - General Internal Medicine 01/05/22 11/28/22 Buddy Shaw NP [address] [place] [address] PCP - General Family Practice 11/29/22 documented as of this encounter
--- OUTSIDE RECORDS SUMMARY | 2024-09-26 09:43 | XMS_ITS | Encounter Summary ---
Author Organization [facility] Address [address] [place] [address] Care Team Providers Care Dental Technologist Name Role Phone Celina Mann DO Primary Care Pro vider Unavailable Mercedes Han MD Primary Care Provider [phone] Callum Hernandez DO Primary Care Provider Lopez Lu MD Primary Care Provider Buddy Foy NP Primary Care Provider Unavail able [facility], Pcp Primary Care Provider Buddy Marlow NP Primary Care Provider Unavail able Encounter Details Date Type Department Care Team Description 03/03/2018 Pt. Non Urgent Medical Question Pulmonology - [place] [address] [place] [phone] Eula Norris FNP [address] [place] [address] Social History Tobacco Use Types Packs/Day Years [...] of me also I spoke to the health underwriter and she said that there is really nothing available and that I should just keep trying everyday to see if there's a cancellation but in the meantime my headgear is all stretched out and I need new equipment I've reached out to a couple of different places that accept my insurance for equipmentbut they need my sleep apnea test from my cow tender documented in this encounter Plan of Treatment Not on file documented as of this encounter Visit Diagnoses Not on filedocumented in this encounter Care Teams Dental Technologist Relationship Specialty Start Date End Date Celina Mann DO PCP - General Internal Medicine 03/21/16 11/23/20 Mercedes Han MD [address] [place] [address] PCP - General Internal Medicine 11/24/20 01/11/21 Callum Hernandez DO [address] [place] [address] PCP - General Internal Medicine 01/12/21 03/19/21 Lopez Brennan MD [address] [place] [address] PCP - General Internal Medicine 03/20/21 10/19/21 Buddy Shaw NP [address] [place], [place] [id number] PCP - General Family Practice 10/20/21 01/04/22 [facility], [place] [id number] PCP - General Internal Medicine 01/05/22 11/28/22 Buddy Shaw NP [address] [place] [address] PCP - General Family Practice 11/29/22 documented as of this encounter
--- OUTSIDE RECORDS SUMMARY | 2024-09-26 09:43 | XMS_ITS | Encounter Summary ---
Author Organization [facility] Address [address] [place] [address] Care Team Providers Care Field Map Technician Name Role Phone Celina Mann DO Primary Care Pro vider Unavailable Mercedes Han MD Primary Care Provider [phone] Callum Hernandez DO Primary Care Provider Lopez Lu MD Primary Care Provider Buddy Foy NP Primary Care Provider Unavail able [facility], Pcp Primary Care Provider Buddy Marlow NP Primary Care Provider Unavail able Encounter Details Date Type Department Care Team Description 03/22/2018 Pt. Non Urgent Medical Question Pulmonology - [place] [address] [place] [phone] Eula Norris FNP [address] [place] [address] Social History Tobacco Use Types Packs/Day Years [...] filedocumented in this encounter Care Teams Field Map Technician Relationship Specialty Start Date End Date Celina Mann DO PCP - General Internal Medicine 03/21/16 11/23/20 Mercedes Han MD [address] [place] [address] PCP - General Internal Medicine 11/24/20 01/11/21 Callum Hernandez DO [address] [place] [address] PCP - General Internal Medicine 01/12/21 03/19/21 Lopez Brennan MD [address] [place] [address] PCP - General Internal Medicine 03/20/21 10/19/21 Buddy Shaw NP [address] [place] [address] PCP - General Family Practice 10/20/21 01/04/[address] [address] PCP - General Internal Medicine 01/05/22 11/28/22 Buddy Shaw NP [address] [place] [address] PCP - General Family Practice 11/29/22 documented as of this encounter
--- OUTSIDE RECORDS SUMMARY | 2024-09-26 09:43 | XMS_ITS | Encounter Summary ---
Author Organization [facility] Address [address] [place] [address] Care Team Providers Care Log Scaler Name Role Phone Celina Mann DO Primary Care Pro vider Unavailable Mercedes Han MD Primary Care Provider [phone] Callum Hernandez DO Primary Care Provider Lopez Lu MD Primary Care Provider Buddy Foy NP Primary Care Provider Unavail [facility] Pcp Primary Care Provider Buddy Marlow NP Primary Care Provider Unavail [facility] Encounter Details Date Type Department Care Team Description 11/10/2019 [facility] Medical Records [address] [place] [address] [facility] Social History Tobacco Use Types Packs/Day [...] on filedocumented in this encounter Care Teams Log Scaler Relationship Specialty Start Date End Date Celina Mann DO PCP - General Internal Medicine 03/21/16 11/23/20 Mercedes Han MD [address] [place] [address] PCP - General Internal Medicine 11/24/20 01/11/21 Callum Hernandez DO [address] [place] [address] PCP - General Internal Medicine 01/12/21 03/19/21 Lopez Brennan MD [address] [place] [address] PCP - General Internal Medicine 03/20/21 10/19/21 Buddy Shaw NP [address] [place] [address] PCP - General Family Practice 10/20/21 01/04/22 [facility], Pcp [address] [place] [address] PCP - General Internal Medicine 01/05/22 11/28/22 Buddy Shaw NP [address] [place] [address] PCP - General Family Practice 11/29/22 documented as of this encounter
--- OUTSIDE RECORDS SUMMARY | 2024-09-26 09:43 | XMS_ITS | Encounter Summary ---
Author Organization [facility] Address [address] [place] [address] Care Team Providers Care Preschool Head Teacher Name Role Phone Celina Mann DO Primary Care Pro vider Unavailable Mercedes Han MD Primary Care Provider [phone] Callum Hernandez DO Primary Care Provider Lopez Lu MD Primary Care Provider Buddy Foy NP Primary Care Provider Unavail able [facility], Pcp Primary Care Provider UnavailBuddy Stephen NP Primary Care Provider Unavail able Reason for Visit * Reason Onset Date Comments Prior Authorization 10/07/2019 Encounter Details Date Type Department Care Team Description 10/07/2019 Telephone Adult Medicine [address] [address] Celina Mann DO Prior Authorization Social History Tobacco Use Types Packs/Day Years [...] Miscellaneous Notes * Telephone Encounter - Celina Miller M.A. - 10/07/2019 3:11 PM EDT Insurance wants pt to try azelastine and nasacort before they will approved mometasone unless medical reason the 2 preferred medications cannot be used Please reply back to p [id number] Prior Auth pool Celina Miller M.A. [facility] Prior Authorizations Ext [phone] Fax: [phone] [place] p [phone] Prior [facility] * Telephone Encounter - Quinten Alvarado - 10/07/2019 2:26 PM EDT Prior Authorization for Medication-do not complete and send this encounter unless you have the fax from the pharmacy. Is this a Cover My Meds request: Yes -- Ramirez Code [id number] Name of Medication Mometasone Furoate Dose of Medication 50mcg/act suspension What is the RX # from the faxed refill? Not on form How does patient take this med? Not on form What Pharmacy did the fax come from: [facility] Pharmacy fax #: Not on form Third Democrat Information from fax: What Prescription Plan does the patient have? Not on form BIN/PCN if applicable: Not on form Cardholder ID:Not on form Person Code: Not on form Relationship Code: Not on form Help desk phone: Not on form documented in this encounter Plan of Treatment Not on file documented as of this encounter Visit Diagnoses Not on filedocumented in this encounter Care Teams Preschool Head Teacher Relationship Specialty Start Date End Date Celina Mann DO PCP - General Internal Medicine 03/21/16 11/23/20 Mercedes Han MD [address] [place] [address] PCP - General Internal Medicine 11/24/20 01/11/21 Callum Hernandez DO [address] [place] [address] PCP - General Internal Medicine 01/12/21 03/19/21 Lopez Brennan MD [address] [place] [address] PCP - General Internal Medicine 03/20/21 10/19/21 Buddy Shaw NP [address] [place] [address] PCP - General Family Practice 10/20/21 01/04/22 [facility], Pcp [address] [place] [address] PCP - General Internal Medicine 01/05/22 11/28/22 Buddy Shaw NP [address] [place] [address] PCP - General Family Practice 11/29/22 documented as of this encounter
--- OUTSIDE RECORDS SUMMARY | 2024-09-26 09:43 | XMS_ITS | Encounter Summary ---
Author Organization [facility] Address [address] [place] [address] Care Team Providers Care Infantry Operations Specialist Name Role Phone Luciano Skinner MD Primary Care Provider Katherine Javed Lindsay MD Primary Care Provider UnaBlake Traore MD Primary Care Provider Unavail able Celina Mann DO Primary Care Pro vider Unavailable Mercedes Han MD Primary Care Provider [phone] Celina Mann DO Primary Care Pro vider Unavailable Mercedes Han MD Primary Care Provider [phone] Callum Hernandez DO Primary Care Provider Katherine Lopez Aragon MD Primary Care Provider Buddy Foy NP Primary Care Provider Unavail able [facility] Primary Care Provider UnavailBuddy Stephen NP Primary Care Provider Unavail able Encounter Details Date Type Department Care Team Description 05/01/2010 Park Interpreter Report Medical Records [address] [place] [address] [place] Pierre Social History Tobacco Use Types [...] on filedocumented in this encounter Care Teams Infantry Operations Specialist Relationship Specialty Start Date End Date Brody, Luciano M., MD PCP - General 12/13/10 05/10/14 Javed Kulkarni MD PCP - General 03/15/00 12/12/10 Blake Rivera MD PCP - General Internal Medicine 05/11/14 03/03/15 Celina Mann, PCP - General Internal Medicine 03/04/15 02/06/16 Mercedes Han MD [address] [place] [address] PCP - General Internal Medicine 02/07/16 03/20/16 Celina Mann, DO PCP - General Internal Medicine 03/21/16 11/23/20 Mercedes Han MD [address] [place] [address] PCP - General Internal Medicine 11/24/20 01/11/21 Callum Hernandez DO [address] [place], [place] [phone] PCP - General Internal Medicine 01/12/21 03/19/21 Lopez Brennan MD [address] [place] [address] PCP - General Internal Medicine 03/20/21 10/19/21 Buddy Shaw NP [address] [place] [address] PCP - General Family Practice 10/20/21 01/04/22 [facility], Pcp [address] [place] [place] [address] PCP - General Internal Medicine 01/05/22 11/28/22 Buddy Shaw NP [address] [place] [address] PCP - General Family Practice 11/29/22 documented as of this encounter
--- OUTSIDE RECORDS SUMMARY | 2024-09-26 09:43 | XMS_ITS | Encounter Summary ---
Author Organization [facility] Address [address] [place] [address] Care Team Providers Care Edge Bander Operator Name Role Phone Celina Mann DO Primary Care Pro vider Unavailable Mercedes Han MD Primary Care Provider [phone] Callum Hernandez DO Primary Care Provider Lopez Lu MD Primary Care Provider Buddy Foy NP Primary Care Provider Unavail [facility] Pcp Primary Care Provider Buddy Marlow NP Primary Care Provider Unavail able Encounter Details Date Type Department Care Team Description 10/12/2019 Pt. Non Urgent Medic al Question Adult Medicine [address] [address] Celina Mann DO Social History Tobacco Use [...] on filedocumented in this encounter Care Teams Edge Bander Operator Relationship Specialty Start Date End Date Celina Mann DO PCP - General Internal Medicine 03/21/16 11/23/20 Mercedes Han MD [address] [place] [address] PCP - General Internal Medicine 11/24/20 01/11/21 Callum Hernandez DO [address] [place], [place] [address] PCP - General Internal Medicine 01/12/21 03/19/21 Lopez Brennan MD [address] [place], [place] [address] PCP - General Internal Medicine 03/20/21 10/19/21 Buddy Shaw NP [address] [place] [address] PCP - General Family Practice 10/20/21 01/04/22 [facility] [place] [address] PCP - General Internal Medicine 01/05/22 11/28/22 Buddy Shaw NP [address] [place] [address] PCP - General Family Practice 11/29/22 documented as of this encounter
--- OUTSIDE RECORDS SUMMARY | 2024-09-26 09:43 | XMS_ITS | Clinical Summary ---
Author Organization [facility] Address [address] [place] [address] Care Team Providers Care Cargo Service Agent Name Role Phone Buddy Shaw NP Primary [...] Recently Relevant to Health Maintenance Care Teams Cargo Service Agent Relationship Specialty Start Date End Date Buddy Shaw, OPEN HEARTH HELPER [address] [facility] RAQUEL Presley PCP - General 11/29/22
--- OUTSIDE RECORDS SUMMARY | 2024-09-26 09:43 | XMS_ITS | Encounter Summary ---
Author Organization [facility] Address [address] [place] [address] Care Team Providers Care Unix Architect Name Role Phone Lopez Brennan MD Primary Care Provider Buddy Foy NP Primary Care Provider Unavail able [facility], Pcp Primary Care Provider Buddy Marlow NP Primary Care Provider Unavail able Reason for Visit * Reason Onset Date Comments APPOINTMENT 10/09/2021 Encounter Details Date Type Department Care Team Description 10/09/[address] [facility] [address] [facility] [address] [place] [address] Leonarda Norris [facility] [address] [place] [address] APPOINTMENT Social History Tobacco Use Types Packs/Day [...] on filedocumented in this encounter Care Teams Unix Architect Relationship Specialty Start Date End Date Keily Brennan-MD Kranthi PCP - General Internal Medicine 03/20/21 10/19/21 Buddy Shaw NP PCP - General Family Practice 10/20/21 01/04/22 [facility], Pcp PCP - General Internal Medicine 01/05/22 11/28/22 Buddy Shaw NP PCP - General Family Practice 11/29/22 documented as of this encounter
--- OUTSIDE RECORDS SUMMARY | 2024-09-26 09:43 | XMS_ITS | Encounter Summary ---
Author Organization [facility] Address [address] [place] [address] Care Team Providers Care Pile Driver Name Role Phone Luciano Skinner MD Primary Care Provider Katherine Blake Bourgeois MD Primary Care Provider Unavail able Celina Mann DO Primary Care Pro vider Unavailable Mercedes Han MD Primary Care Provider [phone] Celina Mann DO Primary Care Pro vider Unavailable Mercedes Han MD Primary Care Provider [phone] Callum Hernandez DO Primary Care Provider Katherine Lopez Aragon MD Primary Care Provider UnaBuddy Castellanos NP Primary Care Provider Unavail able [facility], Pcp Primary Care Provider UnavailBuddy Stephen NP Primary Care Provider Unavail able Encounter Details Date Type Department Care Team Description 12/31/2013 Hospital Medical Records [address] [place] [address] Pamella Rodriguez MD Social History Tobacco Use [...] on filedocumented in this encounter Care Teams Pile Driver Relationship Specialty Start Date End Date Luciano Skinner MD PCP - General 12/13/10 05/10/14 Blake Rivera MD PCP - General Internal Medicine 05/11/14 03/03/15 Celina Mann, PCP - General Internal Medicine 03/04/15 02/06/16 Mercedes Han MD [address] [place] [address] PCP - General Internal Medicine 02/07/16 03/20/16 Celina Mann, PCP - General Internal Medicine 03/21/16 11/23/20 Mercedes Han MD [address] [place] [address] PCP - General Internal Medicine 11/24/20 01/11/21 Callum Hernandez DO [address] [place] [address] PCP - General Internal Medicine 01/12/21 03/19/21 Lopez Brennan MD [address] [place] [address] PCP - General Internal Medicine 03/20/21 10/19/21 Buddy Shaw NP [address] [place] [address] PCP - General Family Practice 10/20/21 01/04/22 [facility], Pcp [address] [place] [address] PCP - General Internal Medicine 01/05/22 11/28/22 Buddy Shaw NP [address] [place], [place] [address] PCP - General Family Practice 11/29/22 documented as of this encounter
--- OUTSIDE RECORDS SUMMARY | 2024-09-26 09:43 | XMS_ITS | Encounter Summary ---
Author Organization [facility] Address [address] [place] [address] Care Team Providers Care Foreclosure Specialist Name Role Phone Celina Mann DO Primary Care Pro vider Unavailable Mercedes Han MD Primary Care Provider [phone] Celina Mann DO Primary Care Pro vider Unavailable Mercedes Han MD Primary Care Provider [phone] Callum Hernandez DO Primary Care Provider Lopez Lu MD Primary Care Provider Buddy Foy NP Primary Care Provider Unavail [facility] Primary Care Provider Buddy Marlow NP Primary Care Provider Unavail [facility] Encounter Details Date Type Department Care Team Description 08/09/2015 DATA WAREHOUSE CONSULTANT/[employer] Report Medical Records [address] [place] [address] Abstract, Provider Social History Tobacco Use Types [...] on filedocumented in this encounter Care Teams Foreclosure Specialist Relationship Specialty Start Date End Date Celina Mann DO PCP - General Internal Medicine 03/04/15 02/06/16 Mercedes Han MD [address] [place] [address] PCP - General Internal Medicine 02/07/16 03/20/16 Celina Mann DO PCP - General Internal Medicine 03/21/16 11/23/20 Mercedes Han MD [address] [place] [address] PCP - General Internal Medicine 11/24/20 01/11/21 Callum Hernandez DO [address] [place] [address] PCP - General Internal Medicine 01/12/21 03/19/21 Lopez Brennan MD [address] [place] [address] PCP - General Internal Medicine 03/20/21 10/19/21 Buddy Shaw NP [address] [place] [address] PCP - General Family Practice 10/20/21 01/04/22 [facility], Pcp [address] [place] [address] PCP - General Internal Medicine 01/05/22 11/28/22 Buddy Shaw NP [address] [place] [address] PCP - General Family Practice 11/29/22 documented as of this encounter
--- OUTSIDE RECORDS SUMMARY | 2024-09-26 09:43 | XMS_ITS | Encounter Summary ---
Author Organization [facility] Address [address] [place] [address] Care Team Providers Care Automotive Lube Technician Name Role Phone Celina Mann DO Primary Care Pro vider Unavailable Mercedes Han MD Primary Care Provider [phone] Callum Hernandez DO Primary Care Provider Lopez Lu MD Primary Care Provider Buddy Foy NP Primary Care Provider Unavail able [facility], Pcp Primary Care Provider UnavailBuddy Stephen NP Primary Care Provider Unavail able Reason for Visit * Reason Onset Date Comments personal 04/20/2019 Encounter Details Date Type Department Care Team Description 04/20/2019 Telephone Adult [address] [address] Celina Mann DO personal Social History Tobacco [...] on filedocumented in this encounter Care Teams Automotive Lube Technician Relationship Specialty Start Date End Date Celina Mann DO PCP - General Internal Medicine 03/21/16 11/23/20 Mercedes Han MD [address] [place] [address] PCP - General Internal Medicine 11/24/20 01/11/21 Callum Hernandez DO [address] [place] [address] PCP - General Internal Medicine 01/12/21 03/19/21 Lopez Brennan MD [address] [place] [address] PCP - General Internal Medicine 03/20/21 10/19/21 Buddy Shaw NP [address] [place] [address] PCP - General Family Practice 10/20/21 01/04/22 [facility], [facility], [address] [address] PCP - General Internal Medicine 01/05/22 11/28/22 Buddy Shaw NP [address] [place] [address] PCP - General Family Practice 11/29/22 documented as of this encounter
--- OUTSIDE RECORDS SUMMARY | 2024-09-26 09:43 | XMS_ITS | Encounter Summary ---
Author Organization [facility] Address [address] [place] [address] Care Team Providers Care Academic Interventionist Name Role Phone Luciano Skinner MD Primary Care Provider Katherine Javed Lindsay MD Primary Care Provider UnaBlake Traore MD Primary Care Provider Unavail able Celina Mann DO Primary Care Pro vider Unavailable Mercedes Han MD Primary Care Provider [phone] Celina Mann DO Primary Care Pro vider Unavailable Mercedes Han MD Primary Care Provider + [phone] Callum Hernandez DO Primary Care Provider Lopez Lu MD Primary Care Provider Buddy Foy NP Primary Care Provider Unavail able [facility], [facility] Primary Care Provider UnavailBuddy Stephen NP Primary Care Provider Unavail able Encounter Details Date Type Department Care Team Description 12/12/2005 Hospital Medical Records [address] [place] [address] Olvin Joseph MD Social History Tobacco Use [...] on filedocumented in this encounter Care Teams Academic Interventionist Relationship Specialty Start Date End Date Luciano Skinner MD PCP - General 12/13/10 05/10/14 Javed Kulkarni MD PCP - General 03/15/00 12/12/10 Blake Rivera MD PCP - General Internal Medicine 05/11/14 03/03/15 Celina Mann, PCP - General Internal Medicine 03/04/15 02/06/16 Mercedes Han MD [address] [place] [address] PCP - General Internal Medicine 02/07/16 03/20/16 Celina Mann, PCP - General Internal Medicine 03/21/16 11/23/20 Mercedes Han MD [address] [place] [address] PCP - General Internal Medicine 11/24/20 01/11/21 Callum Hernandez, [address] [place] [address] PCP - General Internal Medicine 01/12/21 03/19/21 Lopez Brennan MD [address] [place] [address] PCP - General Internal Medicine 03/20/21 10/19/21 Buddy Shaw NP [address] [place] [address] PCP - General Family Practice 10/20/21 01/04/22 [facility], Pcp [address] [place] [address] PCP - General Internal Medicine 01/05/22 11/28/22 Buddy Shaw NP [address] [place] [address] PCP - General Family Practice 11/29/22 documented as of this encounter
--- OUTSIDE RECORDS SUMMARY | 2024-09-26 09:43 | XMS_ITS | Encounter Summary ---
Author Organization [facility] Address [address] [place] [address] Care Team Providers Care Leather Belt Shaper Name Role Phone Celina Mann DO Primary Care Pro vider Unavailable Mercedes Han MD Primary Care Provider [phone] Callum Hernandez DO Primary Care Provider Lopez Lu MD Primary Care Provider Buddy Foy NP Primary Care Provider Unavail [facility] Pcp Primary Care Provider Buddy Marlow NP Primary Care Provider Unavail [facility] Encounter Details Date Type Department Care Team Description 11/16/2019 Vice President Industrial Relations Report Medical Records [address] [place] [address] [address] [facility] Social History Tobacco Use Types Packs/Day Years [...] on filedocumented in this encounter Care Teams Leather Belt Shaper Relationship Specialty Start Date End Date Celina Mann DO PCP - General Internal Medicine 03/21/16 11/23/20 Mercedes Han MD [address] [place] [address] PCP - General Internal Medicine 11/24/20 01/11/21 Callum Hernandez DO [address] [place] [address] PCP - General Internal Medicine 01/12/21 03/19/21 Lopez Brennan MD [address] [place] [address] PCP - General Internal Medicine 03/20/21 10/19/21 Buddy Shaw NP [address] [place] [address] PCP - General Family Practice 10/20/21 01/04/22 [facility], Pcp [address] [place] [address] PCP - General Internal Medicine 01/05/22 11/28/22 Buddy Shaw NP [address] [place] [address] PCP - General Family Practice 11/29/22 documented as of this encounter
--- OUTSIDE RECORDS SUMMARY | 2024-09-26 09:43 | XMS_ITS | Encounter Summary ---
Author Organization [facility] Address [address] [place] [address] Care Team Providers Care Territory Manager General Sales Name Role Phone Celina Mann DO Primary Care Pro vider Unavailable Mercedes Han MD Primary Care Provider [phone] Callum Hernandez DO Primary Care Provider Lopez Lu MD Primary Care Provider Buddy Foy NP Primary Care Provider Unavail able [facility] Pcp Primary Care Provider Buddy Marlow NP Primary Care Provider Unavail able Encounter Details Date Type Department Care Team Description 12/02/2019 Rubber Cutter Report Medical Records [address] [place] [address] Megan Ramírez MD [address] [place] [address] Social History Tobacco Use Types Packs/Day Years [...] on filedocumented in this encounter Care Teams Territory Manager General Sales Relationship Specialty Start Date End Date Celina Mann DO PCP - General Internal Medicine 03/21/16 11/23/20 Mercedes Han MD [address] [place], [place] [id number] PCP - General Internal Medicine 11/24/20 01/11/21 Callum Hernandez DO [address] [place], [place] [phone] PCP - General Internal Medicine 01/12/21 03/19/21 Lopez Brennan MD [address] [place], [place] [phone] PCP - General Internal Medicine 03/20/21 10/19/21 Buddy Shaw NP [address] [place], [place] [phone] PCP - General Family Practice 10/20/21 01/04/22 [facility], [place] [address] PCP - General Internal Medicine 01/05/22 11/28/22 Buddy Shaw NP [address] [place] [address] PCP - General Family Practice 11/29/22 documented as of this encounter
--- OUTSIDE RECORDS SUMMARY | 2024-09-26 09:43 | XMS_ITS | Encounter Summary ---
Author Organization [facility] Address [address] [place] [address] Care Team Providers Care Upkeep Mechanic Name Role Phone Luciano Skinner MD Primary Care Provider Katherine Blake Bourgeois MD Primary Care Provider Unavail able Celina Mann DO Primary Care Pro vider Unavailable Mercedes Han MD Primary Care Provider + [phone] Celina Mann DO Primary Care Pro vider Unavailable Mercedes Han MD Primary Care Provider + [phone] Callum Hernandez DO Primary Care Provider Katherine Lopez Aragon MD Primary Care Provider UnaBuddy Castellanos NP Primary Care Provider Unavail able [facility], Pcp Primary Care Provider UnavailBuddy Stephen NP Primary Care Provider Unavail able Encounter Details Date Type Department Care Team Description 12/31/2013 Hospital Medical Records 4 [place] [address] Pamella Rodriguez MD Social History Tobacco Use [...] on filedocumented in this encounter Care Teams Upkeep Mechanic Relationship Specialty Start Date End Date Luciano Skinner MD PCP - General 12/13/10 05/10/14 Blake Rivera MD PCP - General Internal Medicine 05/11/14 03/03/15 Celina Mann, PCP - General Internal Medicine 03/04/15 02/06/16 Mercedes Han MD [address] [place] [address] PCP - General Internal Medicine 02/07/16 03/20/16 Celina Mann, PCP - General Internal Medicine 03/21/16 11/23/20 Mercedes Han MD [address] [place] [address] PCP - General Internal Medicine 11/24/20 01/11/21 Callum Hernandez DO [address] [place] [address] PCP - General Internal Medicine 01/12/21 03/19/21 Lopez Brennan MD [address] [place] [address] PCP - General Internal Medicine 03/20/21 10/19/21 Buddy Shaw NP [address] [place] [address] PCP - General Family Practice 10/20/21 01/04/22 [facility], Pcp [address] [place] [address] PCP - General Internal Medicine 01/05/22 11/28/22 Buddy Shaw NP [address] [place], [place] [phone] PCP - General Family Practice 11/29/22 documented as of this encounter
--- OUTSIDE RECORDS SUMMARY | 2024-09-26 09:43 | XMS_ITS | Encounter Summary ---
Author Organization [facility] Address [address] [place] [address] Care Team Providers Care Machine Clothing Man Name Role Phone Celina Mann DO Primary Care Pro vider Unavailable Mercedes Han MD Primary Care Provider [phone] Callum Hernandez DO Primary Care Provider Lopez Lu MD Primary Care Provider Buddy Foy NP Primary Care Provider [facility] Pcp Primary Care Provider Buddy Marlow NP Primary Care Provider Unavail [facility] Encounter Details Date Type Department Care Team Description 04/07/2020 Supervisor Testing Report Medical Records [address] [place] [address] Raul German Social History Tobacco Use Types [...] filedocumented in this encounter Care Teams Machine Clothing Man Relationship Specialty Start Date End Date Celina Mann DO PCP - General Internal Medicine 03/21/16 11/23/20 Mercedes Han MD [address] [place] [address] PCP - General Internal Medicine 11/24/20 01/11/21 Callum Hernandez DO [address] [place] [address] PCP - General Internal Medicine 01/12/21 03/19/21 Lopez Brennan MD [address] [place] [address] PCP - General Internal Medicine 03/20/21 10/19/21 Buddy Shaw NP [address] [place] [address] PCP - General Family Practice 10/20/21 01/04/22 [facility], Pcp [address] [place] [address] PCP - General Internal Medicine 01/05/22 11/28/22 Buddy Shaw NP [address] [place] [address] PCP - General Family Practice 11/29/22 documented as of this encounter
--- OUTSIDE RECORDS SUMMARY | 2024-09-26 09:43 | XMS_ITS | Clinical Summary ---
Author Organization [facility] Address [address] [place] [address] Care Team Providers Care Information Security Name Role Phone Buddy Shaw NP Primary Care Provider Unavail able Medications Medication Sig Dispensed Refills Start Date End Date Status MULTI-VITAMIN OR 1 tab daily 0 Active VITAMIN B-12 OR 1 tab daily 0 Active CALCIUM + D 600-200 MG-UNIT OR TABS 1 TABLET DAILY 0 Activ e CPAP Historical (HISTORICAL CPAP) Inhale into the lungs. J&L pressure 6-16 0 08/09/2015 Active [place]-3 Fatty Acids (FISH OIL OR) Take by mouth daily. 0 Active Cholecalciferol (VITAMIN D3) 3000 UNITS Tab Take 1 Tab by mouth daily. 0 Active ibuprofen (ADVIL,MOTRIN) 800 MG tablet Take 1 Tab by mouth 3 times daily (with meals). 0 12/16/2019 Active Triamcinolone Acetonide (NASACORT ALLERGY 24HR) 55 MCG/ACT Aerosol 1 [place] by Nasal route daily as needed (rhinitis [...] - 2022-2 4 season) 2024 10/04/2021, 07/25/2020 BMI CHECK/ADVISE 06/03/2024 08/12/2020, , 09/25/2019, Additional history exists INFLUENZA (Season Ended) 2025 021, 01/22/2020, 02/10/2018, Additional history exists CHOLESTEROL SCREENING 08/12/2025 08/12/2020 , 10/14/2019, 03/22/2018, Additional history exists HEPATITIS C SCREENING Completed 03/21/2013 Care Teams Information Security Relationship Specialty Start Date End Date Buddy Shaw NP PCP - General Family Practice 11/29/22
--- OUTSIDE RECORDS SUMMARY | 2024-09-26 09:44 | XMS_ITS | Encounter Summary ---
Author Organization [facility] Address [address] [place] [address] Care Team Providers Care Instructional Paraprofessional Name Role Phone Luciano Skinner MD Primary Care Provider Katherine Blake Bourgeois MD Primary Care Provider Unavail able Celina Mann DO Primary Care Pro vider Unavailable Mercedes Han MD Primary Care Provider [phone] Celina Mann DO Primary Care Pro vider Unavailable Mercedes Han MD Primary Care Provider [phone] Callum Hernandez DO Primary Care Provider Katherine Lopez Aragon MD Primary Care Provider UnaBuddy Castellanos NP Primary Care Provider Unavail able [facility], Pcp Primary Care Provider UnavailBuddy Stephen NP Primary Care Provider Unavail able Encounter Details Date Type Department Care Team Description 09/19/2012 Pt. Non Urgent Medical Question Adult Medicine [address] [address] Luciano Skinner MD Social History Tobacco Use [...] on filedocumented in this encounter Care Teams Instructional Paraprofessional Relationship Specialty Start Date End Date Luciano Skinner MD PCP - General 12/13/10 05/10/14 Blake Rivera MD PCP - General Internal Medicine 05/11/14 03/03/15 Celina Mann, PCP - General Internal Medicine 03/04/15 02/06/16 Mercedes Han MD [address] [place] [address] PCP - General Internal Medicine 02/07/16 03/20/16 Celina Mann, PCP - General Internal Medicine 03/21/16 11/23/20 Mercedes Han MD [address] [place] [address] PCP - General Internal Medicine 11/24/20 01/11/21 Callum Hernandez DO [address] [place] [address] PCP - General Internal Medicine 01/12/21 03/19/21 Lopez Brennan MD [address] [place] [address] PCP - General Internal Medicine 03/20/21 10/19/21 Buddy Shaw NP [address] [place] [address] PCP - General Family Practice 10/20/21 01/04/22 [facility], [address] [address] PCP - General Internal Medicine 01/05/22 11/28/22 Buddy Shaw NP [address] [place] [address] PCP - General Family Practice 11/29/22 documented as of this encounter
--- OUTSIDE RECORDS SUMMARY | 2024-09-26 09:44 | XMS_ITS | Encounter Summary ---
Author Organization [facility] Address [address] [place] [address] Care Team Providers Care Assistant General Manager Name Role Phone Luciano Skinner MD Primary Care Provider Katherine Blake Bourgeois MD Primary Care Provider Unavail able Celina Mann DO Primary Care Pro vider Unavailable Mercedes Han MD Primary Care Provider + [phone] Celina Mann DO Primary Care Pro vider Unavailable Mercedes Han MD Primary Care Provider + [phone] Callum Hernandez DO Primary Care Provider Katherine Lopez Aragon MD Primary Care Provider UnaBuddy Castellanos NP Primary Care Provider Unavail able [facility], Pcp Primary Care Provider UnavailBuddy Stephen NP Primary Care Provider Unavail able Encounter Details Date Type Department Care Team Description 11/05/2012 Hospital Medical Records [address] [place] [address] Lux Dodge Social History Tobacco Use Types [...] on filedocumented in this encounter Care Teams Assistant General Manager Relationship Specialty Start Date End Date Brody, Luciano M., MD PCP - General 12/13/10 05/10/14 Blake Rivera MD PCP - General Internal Medicine 05/11/14 03/03/15 Celina Mann, PCP - General Internal Medicine 03/04/15 02/06/16 Mercedes Han MD [address] [place] [address] PCP - General Internal Medicine 02/07/16 03/20/16 Celina Mann, PCP - General Internal Medicine 03/21/16 11/23/20 Mercedes Han MD [address] [place] [address] PCP - General Internal Medicine 11/24/20 01/11/21 Callum Hernandez DO [address] [place] [address] PCP - General Internal Medicine 01/12/21 03/19/21 Lopez Brennan MD [address] [place] [address] PCP - General Internal Medicine 03/20/21 10/19/21 Buddy Shaw NP [address] [place] [address] PCP - General Family Practice 10/20/21 01/04/22 [facility], Pcp [address] [place] [address] PCP - General Internal Medicine 01/05/22 11/28/22 Buddy Shaw NP [address] [place] [address] PCP - General Family Practice 11/29/22 documented as of this encounter
--- OUTSIDE RECORDS SUMMARY | 2024-09-26 09:44 | XMS_ITS | Encounter Summary ---
Author Organization [facility] Address [address] [place] [address] Care Team Providers Care Engraver Lettering Name Role Phone Luciano Skinner MD Primary Care Provider Katherine Blake Bourgeois MD Primary Care Provider Unavail able Celina Mann DO Primary Care Pro vider Unavailable Mercedes Han MD Primary Care Provider [phone] Celina Mann DO Primary Care Pro vider Unavailable Mercedes Han MD Primary Care Provider + [phone] Callum Hernandez DO Primary Care Provider Katherine Lopez Aragon MD Primary Care Provider UnaBuddy Castellanos NP Primary Care Provider Unavail able [facility], Pcp Primary Care Provider UnavailBuddy Stephen NP Primary Care Provider Unavail able Encounter Details Date Type Department Care Team Description 11/25/2012 Second Ride Fare Collector Report Medical Records [address] [place] [address] Jesús Martinez Social History Tobacco Use Types [...] on filedocumented in this encounter Care Teams Engraver Lettering Relationship Specialty Start Date End Date Luciano Skinner MD PCP - General 12/13/10 05/10/14 Blake Rivera MD PCP - General Internal Medicine 05/11/14 03/03/15 Celina Mann, DO PCP - General Internal Medicine 03/04/15 02/06/16 Mercedes Han MD [address] [place] [address] PCP - General Internal Medicine 02/07/16 03/20/16 Celina Mann, PCP - General Internal Medicine 03/21/16 11/23/20 Mercedes Han MD [address] [place] [address] PCP - General Internal Medicine 11/24/20 01/11/21 Callum Hernandez DO [address] [place] [address] PCP - General Internal Medicine 01/12/21 03/19/21 Lopez Brennan MD [address] [place] [address] PCP - General Internal Medicine 03/20/21 10/19/21 Buddy Shaw NP [address] [place] [address] PCP - General Family Practice 10/20/21 01/04/22 [facility], Pcp [address] [place] [address] PCP - General Internal Medicine 01/05/22 11/28/22 Buddy Shaw NP [address] [place] [address] PCP - General Family Practice 11/29/22 documented as of this encounter
--- OUTSIDE RECORDS SUMMARY | 2024-09-26 09:44 | XMS_ITS | Encounter Summary ---
Author Organization [facility] Address [address] [place] [address] Care Team Providers Care Mobile Mechanic Name Role Phone Luciano Skinner MD Primary Care Provider Katherine Blake Bourgeois MD Primary Care Provider Unavail able Celina Mann DO Primary Care Pro vider Unavailable Mercedes Han MD Primary Care Provider + [phone] Celina Mann DO Primary Care Pro vider Unavailable Mercedes Han MD Primary Care Provider + [phone] Callum Hernandez DO Primary Care Provider Katherine Lopez Aragon MD Primary Care Provider UnaBuddy Castellanos NP Primary Care Provider Unavail able [facility], Pcp Primary Care Provider UnavailBuddy Stephen NP Primary Care Provider Unavail able Encounter Details Date Type Department Care Team Description 08/26/2012 Hospital Medical Records [address] [place] [address] Pamela Shahid DO Social History Tobacco Use [...] on filedocumented in this encounter Care Teams Mobile Mechanic Relationship Specialty Start Date End Date Luciano Skinner MD PCP - General 12/13/10 05/10/14 Blake Rivera MD PCP - General Internal Medicine 05/11/14 03/03/15 Celina Mann, PCP - General Internal Medicine 03/04/15 02/06/16 Mercedes Han MD [address] [place] [address] PCP - General Internal Medicine 02/07/16 03/20/16 Celina Mann, PCP - General Internal Medicine 03/21/16 11/23/20 Mercedes Han MD [address] [place] [address] PCP - General Internal Medicine 11/24/20 01/11/21 Callum Hernandez DO [address] [place] [address] PCP - General Internal Medicine 01/12/21 03/19/21 Lopez Brennan MD [address] [place] [address] PCP - General Internal Medicine 03/20/21 10/19/21 Buddy Shaw NP [address] [place] [address] PCP - General Family Practice 10/20/21 01/04/22 [facility], [address] [address] PCP - General Internal Medicine 01/05/22 11/28/22 Buddy Shaw NP [address] [place] [address] PCP - General Family Practice 11/29/22 documented as of this encounter
--- OUTSIDE RECORDS SUMMARY | 2024-09-26 09:44 | XMS_ITS | Encounter Summary ---
Author Organization [facility] Address [address] [place] [address] Care Team Providers Care Group Chief Operator Name Role Phone Celina Mann DO Primary Care Pro vider Unavailable Mercedes Han MD Primary Care Provider [phone] Callum Hernandez DO Primary Care Provider Lopez Lu MD Primary Care Provider Buddy Foy NP Primary Care Provider Unavail [facility] Pcp Primary Care Provider Buddy Marlow NP Primary Care Provider Unavail able Encounter Details Date Type Department Care Team Description 11/02/2016 Opthalmic Tech Report Medical Records [address] [place] [address] Tristen Díaz MD Social History Tobacco Use [...] on filedocumented in this encounter Care Teams Group Chief Operator Relationship Specialty Start Date End Date Celina Mann DO PCP - General Internal Medicine 03/21/16 11/23/20 Mercedes Han MD [address] [place] [address] PCP - General Internal Medicine 11/24/20 01/11/21 Callum Hernandez DO [address] [place] [address] PCP - General Internal Medicine 01/12/21 03/19/21 Lopez Brennan MD [address] [place] [address] PCP - General Internal Medicine 03/20/21 10/19/21 Buddy Shaw NP [address] [place] [address] PCP - General Family Practice 10/20/21 01/04/22 [facility], Pcp [address] [place] [address] PCP - General Internal Medicine 01/05/22 11/28/22 Buddy Shaw NP [address] [place], [place] [phone] PCP - General Family Practice 11/29/22 documented as of this encounter
--- OUTSIDE RECORDS SUMMARY | 2024-09-26 09:44 | XMS_ITS | Encounter Summary ---
Author Organization [facility] Address [address] [place] [address] Care Team Providers Care Blood Bank Technologist Name Role Phone Luciano Skinner MD Primary Care Provider Katherine Blake Bourgeois MD Primary Care Provider Unavail able Celina Mann DO Primary Care Pro vider Unavailable Mercedes Han MD Primary Care Provider + [phone] Celina Mann DO Primary Care Pro vider Unavailable Mercedes Han MD Primary Care Provider + [phone] Callum Hernandez DO Primary Care Provider Katherine Lopez Aragon MD Primary Care Provider UnaBuddy Castellanos NP Primary Care Provider Unavail able [facility], Pcp Primary Care Provider UnavailBuddy Stephen NP Primary Care Provider Unavail able Encounter Details Date Type Department Care Team Description 08/27/2012 Hospital Medical Records [address] [place] [address] Pamela Shahid DO Social History Tobacco Use [...] on filedocumented in this encounter Care Teams Blood Bank Technologist Relationship Specialty Start Date End Date Luciano Skinner MD PCP - General 12/13/10 05/10/14 Blake Rivera MD PCP - General Internal Medicine 05/11/14 03/03/15 Celina Mann, PCP - General Internal Medicine 03/04/15 02/06/16 Mercedes Han MD [address] [place] [address] PCP - General Internal Medicine 02/07/16 03/20/16 Celina Mann, PCP - General Internal Medicine 03/21/16 11/23/20 Mercedes Han MD [address] [place] [address] PCP - General Internal Medicine 11/24/20 01/11/21 Callum Hernandez DO [address] [place] [address] PCP - General Internal Medicine 01/12/21 03/19/21 Lopez Brennan MD [address] [place] [address] PCP - General Internal Medicine 03/20/21 10/19/21 Buddy Shaw NP [address] [place] [address] PCP - General Family Practice 10/20/21 01/04/22 [facility], [address] [address] PCP - General Internal Medicine 01/05/22 11/28/22 Buddy Shaw NP [address] [place] [address] PCP - General Family Practice 11/29/22 documented as of this encounter
[2024-09-26 11:58] LABS: Appearance Urine Clear; Color Urine Yellow; Glucose Urine UA Negative (Negative); Leukocyte Esterase Urine Trace (Negative); Nitrite Urine Negative (Negative); Specific Gravity - Urine <= 1.005 (1.005-1.025); UMIC TRIGGER UA YES; Urine Blood Negative (Negative); Urine Ketones Negative (Negative); Urine Protein Negative (Neg-Trace)
[2024-09-26 12:12] LABS: Bacteria Urine None Seen (None Seen); Hyaline Casts Urine 0-2 /LPF (0-2); RBC Urine 0-2 /HPF (0-2); Squamous Epithelial Cell Urine 0-2 /HPF (0-2); WBC Urine 0-5 /HPF (0-5)
== END 2024-09-26 09:03 | disposition home or self-care (01) ==
LOC: HO.LAB 09:02
PROVIDERS: PCP Nurse Practitioner Family; Visit Provider Family Medicine
DX: R30.0 Dysuria (principal); R31.9 Hematuria, unspecified; R33.9 Retention of urine, unspecified
CPT/HCPCS: 81001; 81003; 87086; 99212

== ENCOUNTER 2024-09-30 09:48 | Outpatient (AMB) | payer MEDICARE, SELFPAY ==
--- NOTE | 2024-09-30 09:53 | A.OFFVIS_ITS ---
Intake Visit Reasons: 3 month/ PVR Intake Note: Patient presents to office today for a 3 month follow up/PVR Urology Medications: none Blood Thinner: none PVR:0ml Backup Sawyer Required: No Accompanied by: Self / Same As Patient Allergies No Known Allergies [No Known Allergies*] Allergy (Verified 09/30/24 16:46) Medication List - Last Reconciled 09/30/24 by LESVIA Levin- albuterol sulfate 90 mcg/actuation (Ventolin HFA) 2 puffs inhalation Q4-6H PRN atorvastatin 20 mg PO DAILY 90 days bupropion HCl XL 300 mg PO DAILY bupropion HCl XL 150 mg PO QAM clotrimazole 1% 1 appl topical BID 5 days duloxetine 60 mg PO DAILY levothyroxine 25 mcg PO DAILY lorazepam 0.5 mg PO BID PRN nitrofurantoin monohyd/m-cryst 100 mg (Macrobid) 100 mg PO BID 7 days omeprazole 40 mg PO DAILY 90 days terazosin 1 mg PO BEDTIME 30 days ziprasidone HCl 20 mg PO DAILY HPI Comments Details: Nereida Keller is a very pleasant 69-year-old female patient of Dr. Shaw. She has a past medical history of arthritis, SVT, sleep apnea, GERD, hypercholesteremia, depression, anxiety, chronic pain syndrome, and sacroiliitis. She presents to the office today for a follow up of her incomplete bladder emptying. In discussion with the patient today she reports since her last office visit here approximately 4 months ago she seeked urgent care services this past weekend for bladder pressure she had been experiencing. However in review of patient's chart it appears patient presented with dysuria and some hematuria however patient declines this to be accurate. She reports she was given antibiotics as well as Clomitrazole cream and has since been feeling better. She reports she continues on antibiotic therapy and is due to be completed within the next 2-3 days. In review of patient's chart it appears urine culture 09/25 no growth. We discussed discontinuation of antibiotic therapy. In office urinalysis results reviewed with the patient today. PVR 0 mL. She reports she has not needed to perform CIC in the last 3 days as she has been urinating with no difficulty. She reports typically her morning urination she experiences incomplete bladder emptying as well as weak urinary stream. Previous workup has included a retroperitoneal ultrasound 04/25 noting bilateral kidneys with no calculi or hydronephrosis noted. The bladder is well distended. Bilateral ureteral jets are demonstrated. Pre void bladder volume is approximately 380 mL. Postvoid bladder volume is approximately 75 mL. She currently denies any bothersome urinary issues. She denies hematuria, dysuria, foul smelling urine, changes to urinary stream, flank pain, fever, and or chills. She reports compliance with low-dose terazosin as prescribed. She otherwise offers no issues or concerns at this time. History of Present Illness The patient is a 69-year-old female presenting with urinary retention and associated symptoms. She reports a decreased utilization of catheterization since her last appointment. Recently, she experienced sharp pain upon ceasing urination, not during the act itself or with catheter insertion. A visit to urgent care involved a urinalysis with a negative dipstick for infection but subsequent lab tests detected a slight infection. She was prescribed an unspecified antibiotic. The sharp pain has subsided after intensive cranberry juice consumption and hydration. The patient reports urinating independently now, without catheterization for approximately three days. She had started catheterizing in the mornings when feeling incomplete bladder emptying. She mentions the inability to fully void in itially, often resulting in assistance with a catheter, particularly in the mornings when urine flow is notably slow. The patient has been maintaining her medication of Terazosin. Plan The patient is advised to continue taking Terazosin as prescribed and refrain from catheterization unless symptoms of incomplete bladder emptying return. The sharp urinary pain had resolved, possibly aided by cranberry juice intake and increase in hydration. Given the lack of growth in urine cultures from her recent infection episode, no further antibiotic course is required, but caution and immediate consultation are advised should symptoms recur. A three-month follow-up is scheduled to ensure symptom management is effective, promoting patient engagement in any future episodes. Reiteration of the importance of early communication with our office over the use of urgent care services was emphasized. Patient was informed and verbally consented to the use of an ambient scribe for clinic note documentation during this visit. Discussion Notes I reviewed with the patient the management options for her current urinary and bladder symptoms, emphasizing the importance of hydration and the self-administration of Terazosin to manage incomplete bladder emptying. We discussed the observed efficacy of cranberry juice in her symptom resolution, negating the need for further antibiotic use given the culture results. We agreed on a follow-up appointment in three months and process adaptations if her symptoms fluctuate, stressing open communication lines for any future complications. FORMERLY [facility], [facility] Medical History Allergic rhinitis Chronic pain syndrome SVT (supraventricular tachycardia) Elevated cholesterol Obstructive sleep apnea of adult Nicotine dependence, cigarettes, uncomplicated Osteopenia GERD (gastroesophageal reflux disease) Tubular adenoma Depression with anxiety Sacroiliitis Arthritis Swelling of knee joint, left Tardive dyskinesia Surgical History History of colonoscopy History of hysterectomy History of rotator cuff surgery History of hand surgery History of cardiac radiofrequency ablation (RFA) Family History Father Mental health disorder Paternal Grandfather Mental health disorder Daughter Mental health disorder Mother Lung cancer Social History Household Members Other:: daughter Housing: House Are you a primary child adolescent care to a significant other at home: No Do you presently have visiting nurse or other home services: No Patient Tobacco Use Status: Current everyday Tobacco user Tobacco use type: Cigarette Years Smoked: (onset 17yo, 1/2-1ppd x 50yrs, 35pyh) e-Cigarette/Vaping Use: Never Used Second Hand Smoke Exposure: No service: No Current occupational status: retired Current occupation: works part [email or web address] Current occupational exposures/hazards: No Cognitive needs: No Hearing needs: No Vision needs: Yes Review of Systems Const Reports as per HPI Eyes Reports no additional complaints ENT Reports no additional complaints Card Reports as per HPI Resp Reports as per HPI GI Reports as per HPI Reports as per HPI Musc Reports as per HPI Neuro Reports no additional complaints Psych Reports as per HPI Endo Reports no additional complaints Claudio/Lymph Reports no additional complaints Aller/Immun Reports no additional complaints Physical Exam Const General: cooperative, healthy appearing, comfortable, no acute distress, well developed, alert and awake Nutritional Appearance: overweight Orientation/consciousness: patient oriented x3 Limitations: no limitations HEENT Head: Yes normal to inspection, Yes normocephalic and Yes atraumatic Ears: hearing grossly normal bilaterally Eyes General: appearance normal, both eyes and all related structures Neck Neck: Yes normal visual inspection and Yes trachea midline Chest Chest palpation & inspection: normal inspection of the chest Resp Effort & Inspection: normal respiratory effort and able to speak in complete sentences Cardio Rate: regular rate GI Inspection: Yes normal to inspection General: Yes no CVA tenderness Back/Spine/Pelvis Back: no CVA tenderness Skin General skin exam: no rashes or lesions noted Neuro General: patient oriented x3 Extrem General: Yes normal to inspection Psych Appearance: grossly normal and well kempt Mental Status: mental status grossly normal Speech and movement: Normal speech and movement present and Clear speech present Affect: normal affect Attitude: cooperative Thought process: Normal thought process present Thought content: Normal thought content present Insight: Fair insight present (Psych) Judgement: Fair judgement present (Psych) Results AMB Urinalysis, Automated UA Leukoctes 0 Karime/uL Last Edit by Cuca Kellogg on 09/30/24 10:13 UA Nitrite Negative Last Edit by Cuca Kellogg on 09/30/24 10:13 UA Urobilinogen 0.2 mg/dL Last Edit by Cuca Kellogg on 09/30/24 10:13 UA Protein 0 mg/dL Last Edit by Cuca Kellogg on 09/30/24 10:13 UA pH 6.5 Last Edit by Cuca Kellogg on 09/30/24 10:13 UA Blood 0 Moises/uL Last Edit by Cuca Kellogg on 09/30/24 10:13 UA Specific [place] 1.015 Last Edit by Cuca Kellogg on 09/30/24 10:13 UA Ketone Negative Last Edit by Cuca Kellogg on 09/30/24 10:13 UA Bilirubin 0 mg/dL Last Edit by Cuca Kellogg on 09/30/24 10:13 UA Glucose 0 mg/dL Last Edit by Cuca Kellogg on 09/30/24 10:13 Results Reviewed Results Reviewed: Laboratory Last Values Urine pH (Auto) 6.5 09/30/24 08:10 Specific [place] (Auto) 1.015 09/30/24 08:10 Urine Protein (Auto) 0 mg/dL 09/30/24 08:10 Glucose (UA)(Auto) 0 mg/dL 09/30/24 08:10 Urine Ketones (Auto) Negative 09/30/24 08:10 Urine Blood (Auto) 0 Moises/uL 09/30/24 08:10 Urine Nitrite (Auto) Negative 09/30/24 08:10 Urine Bilirubin (Auto) 0 mg/dL 09/30/24 08:10 Urine Urobilinogen (Auto) 0.2 mg/dL 09/30/24 08:10 Leukocyte Esterase (Auto) 0 Karime/uL 09/30/24 08:10 Assessment & Plan Assessment & Plan (1) Incomplete bladder emptying: Code(s): R33.9 - Retention of urine, unspecified Category: Medical Plan In office urinalysis results reviewed with the patient today; as noted above. PVR 0 mL. Continue terazosin. We discussed discontinuation of antibiotic therapy Recent urine culture results reviewed with the patient today; as noted above. We discussed calling office and or seeking medical treatment if symptoms arise. Continue to CIC as discussed. Discussed potential causes of lower urinary tract symptoms patient was experiencing. Follow-up in 3 months with PVR; or sooner with any issues, concerns, and or questions. Orders: Orders AMB Urinalysis Automated Today Z13.9 - Encounter for screening, unspecified AMB Post Void Residual by ultrasound Today R30.0 - Dysuria Patient Instructions: The patient had an opportunity to ask questions regarding the treatment plan. All questions were answered. Physical exam, labs, and imaging were discussed and reviewed in detail. As well as risks, benefits, and discussion of treatment choices. No major barriers to understanding were identified. The patient expressed understanding and agreement with the above treatment plan. The patient was made aware they should contact our office by phone for worsening of their current condition, the appearance of new symptoms, or with any questions or concerns. Compliance is encouraged with any medications and follow up testing that is ordered. It is a privilege to be allowed the opportunity to participate in? your urological care.? Again, if you have any questions or concerns If you have any questions or concerns please do not hesitate to contact me. The office is [phone]. This note is constructed using voice recognition software. While every effort has been made to ensure accuracy metal coater operator errors may have been included. Yours sincerely, BRIAN Levin Coding Level of Care Code Est Pt Level 3 (10394) Complex EM visit Add On G2211 Diagnoses Incomplete bladder emptying R33.9
--- OUTSIDE RECORDS SUMMARY | 2024-09-30 10:42 | XMS_ITS ---
Author Organization [facility] Address [address] [place] [address] Care Team Providers Care Sample Mounter Name Role Phone Buddy Bolden Primary Care Provider Unav ailable Leandro Harvey Unavailable [phone] Martinez Encounters Encounter Location Date Provider Diagnosis [facility] [address] [place] [address] 03/10/2024 Leandro Harvey Plan Of Treatment No Information Progress Notes * Nereida MCBRIDE ADOB:[birth year] (69 yo F)Acc No.[id number]:03/10/2024 Progress Note Patient:?Nereida MCBRIDE Provider:?Leandro Harvey DPM [...] Harvey DPM Date:?2023 Generated for Gale rogers/Anais/Cassie on:?09/30/2024 10:42 AM EDT
--- OUTSIDE RECORDS SUMMARY | 2024-09-30 10:42 | XMS_ITS ---
Author Organization [facility] Address [address] [facility] [place] [address] Care Team Providers Care Finger Lift Operator Name Role Phone Buddy Bolden Primary Care Provider Unav ailable Leandro Harvey Unavailable [phone] Allergies Allergen (clinical drug ingredient) Drug/Non Drug [...] Active Encounters Encounter Location Date Provider Diagnosis [facility] [address] [place] [address] 06/05/2024 Leandro Harvey Plan Of Treatment No Information Progress Notes * Nereida MCBRIDE ADOB:[birth year] (69 yo F)Acc No.[id number]:06/05/2024 Progress Note Patient:?Nereida MCBRIDE Provider:?Leandro Harvey DPM :1955???Age:69 Y???Sex:Female D ate:06/05/2024 Address:[address] [place], [place] [address] Pcp:DEB Mcclure Subjective: * Chief Complaints: * [...] Harvey DPM Date:?2024 Generated for Gale rogers/Anais/Cassie on:?09/30/2024 10:42 AM EDT
--- OUTSIDE RECORDS SUMMARY | 2024-09-30 10:42 | XMS_ITS | Patient Health Record ---
[facility] Address [address] [facility] [place] [address] Care Team Providers Care Flavorer Name Role Phone Buddy Bolden Primary Care Provider Unav ailable Leandro Harvey Unavailable [phone] Allergies Allergen (clinical drug ingredient) Drug/Non Drug [...] W/U Status Risk Notes Problem Tinea unguium (878802400) Tinea unguium (B35.1) Active confirmed Response to treatment,Un resolved Problem Plantar wart (84662196) Plantar wart (B07.0) Active confirmed Vital Signs Height 5ft4in in 03/03/2024 Weight 208 lbs 03/03/2024 BMI 35.7 kg/m2 03/03/2024 Procedures Procedure Date Ordered Date Performed Result Body Sit e 95640-Smdl Destruction, 1-14 03/03/2024 N/A Encounters Encounter Location Date Provider Diagnosis [facility] [address] 03/03/2024 Leandro Harvey Tinea unguium B35.1 ; Pain in right toe(s) M79.674 ; Pain in left toe(s) M79.675 ; Plantar wart B07.0 and Left foot pain M79.672 [facility] [address] 06/05/2024 Leandro Harvey Assessments Encounter Date Diagnosis [...] Treatment Pending Test Test Name Order Date 60992-Udsd Destruction, 1-14 03/03/2024 81419- Removal of Foreign Body, Subcut 1 50,P7077-YMR TENDON SHEATH/LIGAMENT 1 50,A8475-LGM TENDON SHEATH/LIGAMENT 0 02/15/201416999,E4540-EQW TENDON SHEATH/LIGAMENT 0 02/23/201485830,C9470-ZGJ TENDON SHEATH/LIGAMENT 1 Insurance Providers Payer Name Payer Address Payer Phone Subscriber Number Group Number Insured Name Patient Relationship to Insured Coverage Start Date Coverage End Date Medicare National [employer] [address] [place] [address] [id number] Rae Nereida Self - patient is the insured [employer] [address] [place] [address] [phone] [id number] Nereida Mcbride Self - patient is the insured Medical (General) History Medical History History ICD Code Anxiety Arthritis Back,Hip,and Knee pain sinusitis Measles Mumps Chicken pox Joint implants/screws CAD (Cholesterol) Depression Surgical History Surgery Date(Month/Year) rods in both shoulders Left SQ Plantar Fibroma/S.T. Mass (Unspe c) 09/2014 rotator cuff 2006 colonoscopy
--- OUTSIDE RECORDS SUMMARY | 2024-09-30 10:42 | XMS_ITS | Clinical Summary ---
Author Organization [facility] Address [address] [place] [address] Care Team Providers Care Front Desk Manager Name Role Phone Buddy Shaw NP Primary Care Provider [phone] Surgical History Surgery Date Site/Laterality Comments ROTATOR [...] Recently Relevant to Health Maintenance Care Teams Front Desk Manager Relationship Specialty Start Date End Date Buddy Shaw, SPECIAL DELIVERY CARRIER [address] [facility] RAQUEL Presley PCP - General 11/29/22
--- OUTSIDE RECORDS SUMMARY | 2024-09-30 10:43 | XMS_ITS ---
Author Organization [facility] Address [address] [place] [address] Care Team Providers Care Fertilizing Machine Operator Name Role Phone Buddy Bolden Primary Care Provider Unav ailable Leandro Harvey Unavailable [phone] REASON FOR VISIT SD cx 1/3 Encounters Encounter Location Date Provider Diagnosis [facility] [address] [place] [address] 06/05/2024 Leandro Harvey Plan Of Treatment No Information Progress Notes * Nereida MCBRIDE ADOB:[birth year] (69 yo F)Acc No.[id number]:06/05/2024 Patient:?Nereida MCBRIDE :1955???Age:69 Y???Sex:Female Address:[address] [place], [address] * true * Date:? Generated for Printi sue/Anais/eTransmitting on:?09/30/2024 10:42 AM EDT
== END 2024-09-30 10:20 | disposition home or self-care (01) ==
LOC: HO.HUSH 09:49
PROVIDERS: PCP Nurse Practitioner Family; Visit Provider Nurse Practitioner Family
DX: Z13.9 Encounter for screening, unspecified (principal); R33.9 Retention of urine, unspecified
CPT/HCPCS: 99213; G2211

== ENCOUNTER → 2024-09-30 09:48 | Outpatient (BNVA) | payer MEDICARE, SELFPAY | PROVIDERS: PCP Nurse Practitioner Family; Visit Provider Nurse Practitioner Family | DX: R33.9 Retention of urine, unspecified (principal); R30.0 Dysuria | CPT/HCPCS: 81003; 99212 ==

== ENCOUNTER 2024-10-05 08:25 | Outpatient (AMB) | payer MEDICARE, SELFPAY ==
[2024-10-05 08:27] VITALS: BP 118/70; PULSE 76; O2SAT 97; BMI 36.4
--- NOTE | 2024-10-05 08:27 | A.OFFPC_ITS ---
Vital Signs 10/05/24 08:27 Height 5 ft 4 in Weight 212 lb BMI 36.4 BP 118/70 Blood Pressure Location Lt brachial Position Sitting Pulse 76 Pulse Source Pulse Oximeter Pulse Oximetry (%) 97 Oxygen Delivery Method Room Air Intake Visit Reasons: 3 month follow up Engineering And Development Director Required: No Accompanied by: Self / Same As Patient Allergies No Known Allergies [No Known Allergies*] Allergy (Verified 10/05/24 08:29) Medication List - Last Reconciled 10/05/24 by LESVIA Dowd- albuterol sulfate 90 mcg/actuation (Ventolin HFA) 2 puffs inhalation Q4-6H PRN atorvastatin 20 mg PO DAILY 90 days bupropion HCl XL 150 mg PO QAM clotrimazole 1% 1 appl topical BID 5 days duloxetine 60 mg PO DAILY levothyroxine 25 mcg PO DAILY lorazepam 0.5 mg PO BID PRN omeprazole 40 mg PO DAILY 90 days terazosin 1 mg PO BEDTIME 30 days ziprasidone HCl 20 mg PO DAILY Tobacco use date assessed: 06/11/24 Fall risk assessment: No Falls in past year Last assessed Fall Risk: 10/05/24 Dental Screening Dental Screen Date: 06/11/24 HPI 3 month follow up HPI Details Chief Complaint The patient reports difficulty sleeping as a result of restless leg syndrome and racing thoughts. History of Present Illness The patient is a 69-year-old female presenting with difficulty sleeping as a result of restless leg syndrome and racing thoughts. She reports that the sleeplessness stems from her legs feeling restless, accompanied by racing thoughts that hinder her ability to initiate sleep. This sleep disturbance has significantly impacted her nightly restfulness and daily function. The patient has not previously sought psychiatric assistance or medications aimed at mitigating these symptoms. Examination of contributory factors, such as her morbid obesity, which can worsen restless leg syndrome, and the pursuit of ferritin and iron studies, was discussed. Social History Health Maintenance - Ferritin and iron studies to evaluate potential deficiencies Review of Systems - Neurological: Reports restless legs at night - Psychiatric: Reports difficulty sleepi ng due to racing thoughts -denies any si or hi, denies any CP, SOB Physical Exam General: Cooperative, healthy appearing, comfortable, no acute distress and well developed, morbidly obese Orientation: Patient oriented x3 Limitations: No limitations Head: Normal to inspection Ears: Hearing grossly normal bilaterally Nose: Normal external nose present Face and sinus: Normal facial exam Eyes: Appearance normal, both eyes and all related structures Neck: Normal visual inspection and Yes full ROM Respiratory: Normal respiratory effort and able to speak in complete sentences. Clear to auscultation bilaterally Cardiovascular: Regular rate and rhythm. Normal S1 and S2 GI: Normal to inspection. Soft to palpation and nontender Skin: No rashes or lesions noted Neuro: Patient oriented x3 Extremities: Normal to inspection Results Plan We will start by evaluating the patient's ferritin and iron levels, as iron deficiency could potentially exacerbate restless leg syndrome. Addressing possible deficiencies will guide the consideration of iron supplementation. Discussions also emphasized the significance of addressing her morbid obesity, as weight loss could be beneficial in managing symptoms. We reviewed strategies to improve her sleep and mentioned the option of seeking psychiatric input if necessary for her insomnia. Discussion Notes I discussed with the patient the symptoms of restless leg syndrome and its possible contribution to her insomnia. We talked about the diagnostic need for ferritin and iron studies to rule out iron deficiency. I explained the benefits and risks of potential treatments, including iron supplementation if needed. We also reviewed the importance of managing her obesity and the potential benefits of weight loss. The patient's understanding and consent for the proposed initial workup were obtained. The plan to consider psychiatric consultation for persistent insomnia was noted as a possible next step. Patient Instructions - Attend the lab for ferritin and iron s tudies as discussed. - Implement weight management strategies as feasible. - Contact a psychiatrist if sleep issues persist. - Return for follow-up based on lab resu lts and ongoing symptoms. [facility] Medical History Allergic rhinitis Chronic pain syndrome SVT (supraventricular tachycardia) Elevated cholesterol Obstructive sleep apnea of adult Nicotine dependence, cigarettes, uncomplicated Osteopenia GERD (gastroesophageal reflux disease) Tubular adenoma Depression with anxiety Sacroiliitis Arthritis Swelling of knee joint, left Tardive dyskinesia Surgical History History of colonoscopy History of hysterectomy History of rotator cuff surgery History of hand surgery History of cardiac radiofrequency ablation (RFA) Family History Father Mental health disorder Paternal Grandfather Mental health disorder Daughter Mental health disorder Mother Lung cancer Social History Household Members Other:: daughter Housing: House Are you a primary career and transition teacher to a significant other at home: No Do you presently have visiting nurse or other home services: No Patient Tobacco Use Status: Current everyday Tobacco user Tobacco use type: Cigarette Years Smoked: (onset 17yo, 1/2-1ppd x 50yrs, 35pyh) e-Cigarette/Vaping Use: Never Used Second Hand Smoke Exposure: No service: No Current occupational status: retired Current occupation: works part [employer] Current occupational exposures/hazards: No Cognitive needs: No Hearing needs: No Vision needs: Yes Questionnaire Thrive Questionnaire Date Thrive assessed: 06/04/24 I am a: Patient What is your living situation today?: I have a place to live, but I am worried about losing it in the future Within the past 12 months, did the food you bought not last and you didn't have the money to get more?: Often true Within the past 12 months, did you worry whether your food would run out before you got money to buy more?: Often true Do you have trouble paying for medicines?: Yes Do you have trouble getting transportation to medical appointments?: No Do you have trouble paying your heating and electricity bill?: Yes Do you have trouble taking care of your child, family member or friend?: No Do you have trouble with day-to-day activities such as bathing, preparing meals, shopping, managing finances, etc.?: No Are you currently unemployed and looking for a job?: No Are you interested in more education?: No Please select the resources that you would like help with: Paying for medicine Currently or been in a relationship where the following occur: No concerns reported THRIVE Score: 4 AUDIT C Alcohol Use Questionnaire (AUDIT-C) 1. How often do you have a drink containing alcohol?: Monthly or less 2. How many drinks containing alcohol do you have on a typical day when you are drinking?: 1 or 2 3. How often do you have six or more drinks on one occasion?: Never Total Score: 1 Score Reviewed/Action Taken: Yes GIBRAN-7 AMB Questionnaire GIBRAN-7 Date GIBRAN - 7 assessed: 06/11/24 Source: Developed by Drs. Callum Valdivia, Sarah Roberts, Jaime Harrison and colleagues, with an educational sigrid from [employer]. Physical exam (Primary Care) Vital Signs: Last Vital Signs Pulse 76 10/05/24 08:27 BP 118/70 10/05/24 08:27 Pulse Ox 97 10/05/24 08:27 Oxygen Delivery Method Room Air 10/05/24 08:27 BMI result Body Mass Index 36.4 Tobacco/Smoking Status: Tobacco use Status Tobacco use date assessed 06/11/24 10/05/24 08:30 Patient Tobacco Use Status Current everyday Tobacco 10/05/24 08:30 Tobacco use type Cigarette 10/05/24 08:30 e-Cigarette/Vaping Use Never Used 10/05/24 08:30 Thrive Assessment: Date of Thrive Assessment Date Thrive assessed 06/04/24 10/05/24 08:30 Currently or been in a relationship where the following occur: No concerns rep orted Coding Level of Care Code Est Pt Level 3 (59518) Diagnoses Restless leg G2 Assessment & Plan Assessment & Plan (1) Restless leg: Code(s): G2.81 - Restless legs syndrome Category: Medical Plan . Orders: Orders Complete Blood Count Auto Diff Today G2. - Restless legs syndrome Comprehensive Met. Panel Today G2 - Restless legs syndrome TSH reflex Free T4 Today G2. - Restless legs syndrome IRON PROFILE Today G2. - Restless legs syndrome Ferritin Today G2. - Restless legs syndrome
--- OUTSIDE RECORDS SUMMARY | 2024-10-05 08:42 | XMS_ITS | Encounter Summary ---
Author Organization [facility] Address [address] [place] [address] Care Team Providers Care Tool Specialist Name Role Phone Celina Mann DO Primary Care Pro vider Unavailable Mercedes Han MD Primary Care Provider [phone] Callum Hernandez DO Primary Care Provider Lopez Lu MD Primary Care Provider Buddy Foy NP Primary Care Provider Unavail [facility] Pcp Primary Care Provider Buddy Marlow NP Primary Care Provider Unavail [facility] Encounter Details Date Type Department Care Team Description 05/15/2017 Architectural Technologist Report Medical Records [address] [place] [id number] Fletcher Holliday MD Social History Tobacco Use [...] on filedocumented in this encounter Care Teams Tool Specialist Relationship Specialty Start Date End Date Celina Mann DO PCP - General Internal Medicine 03/21/16 11/23/20 Mercedes Han MD [address] [place] [address] [id number] PCP - General Internal Medicine 11/24/20 01/11/21 Callum Hernandze DO [address] [place] [address] PCP - General Internal Medicine 01/12/21 03/19/21 Lopez Brennan MD [address] [place] [address] PCP - General Internal Medicine 03/20/21 10/19/21 Buddy Shaw NP [address] [place] [address]65 PCP - General Family Practice 10/20/21 01/04/22 [facility], Pcp [address] [place] [address] PCP - General Internal Medicine 01/05/22 11/28/22 Buddy Shaw NP [address] [id number] PCP - General Family Practice 11/29/22 documented as of this encounter
--- OUTSIDE RECORDS SUMMARY | 2024-10-05 08:42 | XMS_ITS | Encounter Summary ---
Author Organization [facility] Address [address] [place] [address] Care Team Providers Care Handle Machine Operator Name Role Phone Celina Mann DO Primary Care Pro vider Unavailable Mercedes Han MD Primary Care Provider [phone] Callum Hernandez DO Primary Care Provider Lopez Lu MD Primary Care Provider Buddy Foy NP Primary Care Provider Unavail able [facility], Pcp Primary Care Provider UnavailBuddy Stephen NP Primary Care Provider Unavail able Reason for Visit * Reason Onset Date Comments skin problems 10/05/2019 Encounter Details Date Type Department Care Team Description 10/05/2019 Pt. Non Urgent Medic al Question Adult Medicine [address] [address] Celina Mann DO Social History Tobacco Use [...] on filedocumented in this encounter Care Teams Handle Machine Operator Relationship Specialty Start Date End Date Celina Mann DO PCP - General Internal Medicine 03/21/16 11/23/20 Mercedes Han MD [address] [place] [address] PCP - General Internal Medicine 11/24/20 01/11/21 Callum Hernandez DO [address] [place], [place] [id number] PCP - General Internal Medicine 01/12/21 03/19/21 Lopez Brennan MD [address] [place] [address] PCP - General Internal Medicine 03/20/21 10/19/21 Buddy Shaw NP [address] [place], [place] [id number] PCP - General Family Practice 10/20/21 01/04/[address] [address] PCP - General Internal Medicine 01/05/22 11/28/22 Buddy Shaw NP [address] [place], [place] [id number] PCP - General Family Practice 11/29/22 documented as of this encounter
--- OUTSIDE RECORDS SUMMARY | 2024-10-05 08:42 | XMS_ITS | Encounter Summary ---
Author Organization [facility] Address [address] [place] [address] Care Team Providers Care Waterway Traffic Checker Name Role Phone Blake Rivera MD Primary Care Provider Unavail able Celina Mann DO Primary Care Pro vider Unavailable Mercedes Han MD Primary Care Provider [phone] Celina Mann DO Primary Care Pro vider Unavailable Mercedes Han MD Primary Care Provider [phone] Callum Hernandez DO Primary Care Provider Lopez Lu MD Primary Care Provider Buddy Foy NP Primary Care Provider Unavail [facility] Pcp Primary Care Provider UnavailBuddy Stephen NP Primary Care Provider Unavail able Encounter Details Date Type Department Care Team Description 01/28/2015 Product Builder Report Medical Records [address] [place] [address] Marko Ham I., PH.D Social History Tobacco [...] on filedocumented in this encounter Care Teams Waterway Traffic Checker Relationship Specialty Start Date End Date Blake Rivera MD PCP - General Internal Medicine 05/11/14 03/03/15 Celina Mann DO PCP - General Internal Medicine 03/04/15 02/06/16 Mercedes Han MD [address] [place] [address] PCP - General Internal Medicine 02/07/16 03/20/16 Celina Mann DO PCP - General Internal Medicine 03/21/16 11/23/20 Mercedes Han MD [address] [place] [address] PCP - General Internal Medicine 11/24/20 01/11/21 Callum Hernandez DO [address] [place] [address] PCP - General Internal Medicine 01/12/21 03/19/21 Lopez Brennan MD [address] [place] [address] PCP - General Internal Medicine 03/20/21 10/19/21 Buddy Shaw NP [address] [place] [address] PCP - General Family Practice 10/20/21 01/04/22 [facility], Pcp [address] [place] [address] PCP - General Internal Medicine 01/05/22 11/28/22 Buddy Shaw NP [address] [place] [address] PCP - General Family Practice 11/29/22 documented as of this encounter
--- OUTSIDE RECORDS SUMMARY | 2024-10-05 08:42 | XMS_ITS | Encounter Summary ---
Author Organization [facility] Address [address] [place] [address] Care Team Providers Care Pegger Dobby Looms Name Role Phone Celina Mann DO Primary Care Pro vider Unavailable Mercedes Han MD Primary Care Provider [phone] Callum Hernandez DO Primary Care Provider Lopez Lu MD Primary Care Provider Buddy Foy NP Primary Care Provider Unavail able [facility], Pcp Primary Care Provider UnavailBuddy Stephen NP Primary Care Provider Unavail able Reason for Visit * Reason Comments E-prescribe Rx Request Encounter Details Date Type Department Care Team Description 10/07/2017 Refill Adult Medicine [address] [address] Celina Mann DO E-prescribe Rx Request Social [...] an upcoming appointment? [facility] to [facility]ill request. Appt due (THE MEDICATION REQUESTED IS ON THE MED LIST ABOVE) All of the medications requested were on the CURRENT MEDS list Did you check the Pharmacy information above?: YES Patient wants: 30 -day supply Is this a mail order prescription request ? NO Patients current insurance carrier is: Payor: [employer] / Plan: [place] $20 [employer] [id number] / Product Type: XeebelO [id number] documented in this encounter Plan of Treatment Not on file documented as of this encounter Visit Diagnoses Not on filedocumented in this encounter Care Teams Pegger Dobby Looms Relationship Specialty Start Date End Date Celina Mann DO PCP - General Internal Medicine 03/21/16 11/23/20 Mercedes Han MD [address] [place] [address] PCP - General Internal Medicine 11/24/20 01/11/21 Callum Hernandez DO [address] [place] [address] PCP - General Internal Medicine 01/12/21 03/19/21 Lopez Brennan MD [address] [place] [address] PCP - General Internal Medicine 03/20/21 10/19/21 Buddy Shaw NP [address] [place] [address] PCP - General Family Practice 10/20/21 01/04/22 Jan Infante [address] [place] [address] PCP - General Internal Medicine 01/05/22 11/28/22 Buddy Shaw NP [address] [place] [address] PCP - General Family Practice 11/29/22 documented as of this encounter
--- OUTSIDE RECORDS SUMMARY | 2024-10-05 08:42 | XMS_ITS | Encounter Summary ---
Author Organization [facility] Address [address] [place] [address] Care Team Providers Care Plant Sprayer Name Role Phone Celina Mann DO Primary Care Pro vider Unavailable Mercedes Han MD Primary Care Provider [phone] Callum Hernandez DO Primary Care Provider Lopez Lu MD Primary Care Provider Buddy Foy NP Primary Care Provider Unavail able [facility], Pcp Primary Care Provider UnavailBuddy Stephen NP Primary Care Provider Unavail able Reason for Visit * Reason Comments E-prescribe Rx Request Encounter Details Date Type Department Care Team Description 05/14/2019 Refill Adult Medicine [address] [address] Celina Mann DO E-prescribe Rx Request Social [...] N/A Patients current insurance carrier is: Payor: [employer] / Plan: Swapsee[employer] $20 BURTON 1 / Product Type: HMO [id number] documented in this encounter Plan of Treatment Not on file documented as of this encounter Visit Diagnoses Not on filedocumented in this encounter Care Teams Plant Sprayer Relationship Specialty Start Date End Date Celina Mann DO PCP - General Internal Medicine 03/21/16 11/23/20 Mercedes Han MD [address] [place], [place] [phone] PCP - General Internal Medicine 11/24/20 01/11/21 Callum Hernandez DO [address] [place] [address] PCP - General Internal Medicine 01/12/21 03/19/21 Lopez Brennan MD [address] [place], [place] [phone] PCP - General Internal Medicine 03/20/21 10/19/21 Buddy Shaw NP [address] [place] [address] PCP - General Family Practice 10/20/21 01/04/22 [facility], [place] [id number] PCP - General Internal Medicine 01/05/22 11/28/22 Buddy Shaw NP [address] [place] [address] PCP - General Family Practice 11/29/22 documented as of this encounter
--- OUTSIDE RECORDS SUMMARY | 2024-10-05 08:42 | XMS_ITS | Encounter Summary ---
Author Organization [facility] Address [address] [place] [address] Care Team Providers Care Salary Manager Name Role Phone Celina Mann DO Primary Care Pro vider Unavailable Mercedes Han MD Primary Care Provider [phone] Callum Hernandez DO Primary Care Provider Lopez Lu MD Primary Care Provider Buddy Foy NP Primary Care Provider Unavail [facility] Pcp Primary Care Provider Buddy Marlow NP Primary Care Provider Unavail able Encounter Details Date Type Department Care Team Description 06/21/2017 Customer Operations Representative Report Medical Records [address] [place] [address] Marko Ham I., PH.D Social History Tobacco [...] on filedocumented in this encounter Care Teams Salary Manager Relationship Specialty Start Date End Date Celina Mann DO PCP - General Internal Medicine 03/21/16 11/23/20 Mercedes Han MD [address] [place] [address] PCP - General Internal Medicine 11/24/20 01/11/21 Callum Hernandez DO [address] [place] [address] PCP - General Internal Medicine 01/12/21 03/19/21 Lopez Brennan MD [address] [place] [address] PCP - General Internal Medicine 03/20/21 10/19/21 Buddy Shaw NP [address] [place] [address] PCP - General Family Practice 10/20/21 01/04/22 [facility], Pcp [address] [place] [address] PCP - General Internal Medicine 01/05/22 11/28/22 Buddy Shaw NP [address] [place] [address] PCP - General Family Practice 11/29/22 documented as of this encounter
--- OUTSIDE RECORDS SUMMARY | 2024-10-05 08:43 | XMS_ITS | Clinical Summary ---
Author Organization [facility] Address [address] [place] [address] Care Team Providers Care Television Maintenance Worker Name Role Phone Buddy Shaw NP Primary Care Provider Unavail able Medications Medication Sig Dispensed Refills Start Date End Date Status MULTI-VITAMIN OR 1 tab daily 0 Active VITAMIN B-12 OR 1 tab daily 0 Active CALCIUM + D 600-200 MG-UNIT OR TABS 1 TABLET DAILY 0 Activ e CPAP Historical (HISTORICAL CPAP) Inhale into the lungs. J&L pressure 6-16 0 08/09/2015 Active Jamul-3 Fatty Acids (FISH OIL OR) Take by mouth daily. 0 Active Cholecalciferol (VITAMIN D3) 3000 UNITS Tab Take 1 Tab by mouth daily. 0 Active ibuprofen (ADVIL,MOTRIN) 800 MG tablet Take 1 Tab by mouth 3 times daily (with meals). 0 12/16/2019 Active Triamcinolone Acetonide (NASACORT ALLERGY 24HR) 55 MCG/ACT Aerosol 1 [place] by Nasal route daily as needed (rhinitis [...] HEPATITIS C SCREENING Completed 03/21/2013 Care Teams Television Maintenance Worker Relationship Specialty Start Date End Date Buddy Shaw NP PCP - General Family Practice 11/29/22
--- OUTSIDE RECORDS SUMMARY | 2024-10-05 08:43 | XMS_ITS | Encounter Summary ---
Author Organization [facility] Address [address] [place] [address] Care Team Providers Care Cloth Designer Name Role Phone Luciano Skinner MD Primary Care Provider Katherine Blake Bourgeois MD Primary Care Provider Unavail able Celina Mann DO Primary Care Pro vider Unavailable Mercedes Han MD Primary Care Provider [phone] Celina Mann DO Primary Care Pro vider Unavailable Mercedes Han MD Primary Care Provider [phone] Callum Hernandez DO Primary Care Provider Katherine Lopez Aragon MD Primary Care Provider UnaBuddy Castellanos NP Primary Care Provider Unavail able [facility], Pcp Primary Care Provider UnavailBuddy Stephen NP Primary Care Provider Unavail able Encounter Details Date Type Department Care Team Description 09/07/2013 Hospital Medical Records [address] [place] [address] Nilton Kumar Social History Tobacco Use Types [...] on filedocumented in this encounter Care Teams Cloth Designer Relationship Specialty Start Date End Date Luciano Skinner MD PCP - General 12/13/10 05/10/14 Blake Rivera MD PCP - General Internal Medicine 05/11/14 03/03/15 Celina Mann, PCP - General Internal Medicine 03/04/15 02/06/16 Mercedes Han MD [address] [place] [address] PCP - General Internal Medicine 02/07/16 03/20/16 Celina Mann, PCP - General Internal Medicine 03/21/16 11/23/20 Mercedes Han MD [address] [place] [address] PCP - General Internal Medicine 11/24/20 01/11/21 Callum Hernandez DO [address] [place] [address] PCP - General Internal Medicine 01/12/21 03/19/21 Lopez Brennan MD [address] [place] [address] PCP - General Internal Medicine 03/20/21 10/19/21 Buddy Shaw NP [address] [place] [address] PCP - General Family Practice 10/20/21 01/04/22 [facility], [address] [address] PCP - General Internal Medicine 01/05/22 11/28/22 Buddy Shaw NP [address] [place] [address] PCP - General Family Practice 11/29/22 documented as of this encounter
--- OUTSIDE RECORDS SUMMARY | 2024-10-05 08:43 | XMS_ITS | Encounter Summary ---
Author Organization [facility] Address [address] [place] [address] Care Team Providers Care Clinical Laboratory Technician Name Role Phone Luciano Skinner MD Primary Care Provider Katherine Blake Bourgeois MD Primary Care Provider Unavail able Celina Mann DO Primary Care Pro vider Unavailable Mercedes Han MD Primary Care Provider [phone] Celina Mann DO Primary Care Pro vider Unavailable Mercedes Han MD Primary Care Provider [phone] Callum Hernandez DO Primary Care Provider Katherine Lopez Aragon MD Primary Care Provider UnaBuddy Castellanos NP Primary Care Provider Unavail able [facility], Pcp Primary Care Provider UnavailBuddy Stephen NP Primary Care Provider Unavail able Encounter Details Date Type Department Care Team Description 04/10/2013 Assembler Faucets Report Medical Records [address] [place] [address] Eric Ladd MD Social History Tobacco Use [...] filedocumented in this encounter Care Teams Clinical Laboratory Technician Relationship Specialty Start Date End Date Luciano Skinner MD PCP - General 12/13/10 05/10/14 Blake Rivera MD PCP - General Internal Medicine 05/11/14 03/03/15 Celina Mann, DO PCP - General Internal Medicine 03/04/15 02/06/16 Mercedes Han MD [address] [place] [address] PCP - General Internal Medicine 02/07/16 03/20/16 Celina Mann, PCP - General Internal Medicine 03/21/16 11/23/20 Mercedes Han MD [address] [place] [address] 66228 PCP - General Internal Medicine 11/24/20 01/11/21 Callum Hernandez, [address] [place] [address]61 PCP - General Internal Medicine 01/12/21 03/19/21 Lopez Brennan MD [address] [place] [address] 46441 PCP - General Internal Medicine 03/20/21 10/19/21 Buddy Shaw NP [address] [place] [address] 62479 PCP - General Family Practice 10/20/21 01/04/22 [facility], Pcp [address] [place] [address] 15964 PCP - General Internal Medicine 01/05/22 11/28/22 Buddy Shaw NP [address] [place] [address] 6[address]93 PCP - General Family Practice 11/29/22 documented as of this encounter
--- OUTSIDE RECORDS SUMMARY | 2024-10-05 08:43 | XMS_ITS | Encounter Summary ---
Author Organization [facility] Address [address] [place] [address] Care Team Providers Care Environmental Project Manager Name Role Phone Celina Mann DO Primary Care Pro vider Unavailable Mercedes Han MD Primary Care Provider [phone] Callum Hernandez DO Primary Care Provider Lopez Lu MD Primary Care Provider Buddy Foy NP Primary Care Provider Unavail [facility] Pcp Primary Care Provider Buddy Marlow NP Primary Care Provider Unavail able Encounter Details Date Type Department Care Team Description 11/16/2019 Glass Cut Off Supervisor Report Medical Records [address] [place] [address] [facility] Social History Tobacco Use [...] filedocumented in this encounter Care Teams Environmental Project Manager Relationship Specialty Start Date End Date Celina Mann DO PCP - General Internal Medicine 03/21/16 11/23/20 Mercedes Han MD [address] [place] [address] PCP - General Internal Medicine 11/24/20 01/11/21 Callum Hernandez DO [address] [place] [address] PCP - General Internal Medicine 01/12/21 03/19/21 Lopez Brennan MD [address] [place] [address] PCP - General Internal Medicine 03/20/21 10/19/21 Buddy Shaw NP [address] [place] [address] PCP - General Family Practice 10/20/21 01/04/22 [facility], Pcp [address] [place] [address] PCP - General Internal Medicine 01/05/22 11/28/22 Buddy Shaw NP [address] [place] [address] PCP - General Family Practice 11/29/22 documented as of this encounter
--- OUTSIDE RECORDS SUMMARY | 2024-10-05 08:43 | XMS_ITS | Encounter Summary ---
Author Organization [facility] Address [address] [place] [address] Care Team Providers Care Consulting Software Engineer Name Role Phone Celina Mann DO Primary Care Pro vider Unavailable Mercedes Han MD Primary Care Provider [phone] Callum Hernandez DO Primary Care Provider Lopez Lu MD Primary Care Provider Buddy Foy NP Primary Care Provider Unavail able [facility], Pcp Primary Care Provider UnavailBuddy Stephen NP Primary Care Provider Unavail able Reason for Visit * Reason Onset Date Comments DME Request 01/15/2018 Encounter Details Date Type Department Care Team Description 01/15/2018 Telephone Pulmonology - [place] [address] [facility] [address] [place] [address] [facility] [address] [place] [address] DME Request Social History Tobacco Use Types [...] the pt due to change in insurance [phone] documented in this encounter Plan of Treatment Not on file documented as of this encounter Visit Diagnoses Not on filedocumented in this encounter Care Teams Consulting Software Engineer Relationship Specialty Start Date End Date Celina Mann DO PCP - General Internal Medicine 03/21/16 11/23/20 Mercedes Han MD [address] [place], [place] [phone] PCP - General Internal Medicine 11/24/20 01/11/21 Callum Hernandez DO [address] [place] [address] PCP - General Internal Medicine 01/12/21 03/19/21 Lopez Brennan MD [address] [place] [address] PCP - General Internal Medicine 03/20/21 10/19/21 Buddy Shaw NP [address] [place], [place] [phone] PCP - General Family Practice 10/20/21 01/04/22 [facility], Pcp [address] [place] [address] PCP - General Internal Medicine 01/05/22 11/28/22 Buddy Shaw NP [address] [place] [address] PCP - General Family Practice 11/29/22 documented as of this encounter
--- OUTSIDE RECORDS SUMMARY | 2024-10-05 08:43 | XMS_ITS | Encounter Summary ---
Author Organization [facility] Address [address] [place] [address] Care Team Providers Care Maintenance Shop Welder Name Role Phone Celina Mann DO Primary Care Pro vider Unavailable Mercedes Han MD Primary Care Provider [phone] Callum Hernandez DO Primary Care Provider Lopez Lu MD Primary Care Provider Buddy Foy NP Primary Care Provider Unavail able [facility], Pcp Primary Care Provider Buddy Marlow NP Primary Care Provider Unavail able Reason for Visit * Reason Onset Date Comments Provider Call Back 02/10/2018 APPOINTMENT 02/10/2018 1st attempt APPOINTMENT 02/10/2018 2nd attempt APPOINTMENT 02/10/2018 3rd attempt Encounter Details Date Type Department Care Team Description 02/10/2018 Telephone Gastroenterology - [address] [address] Ignacio Mcleod MD Provider Call Back; APPOINTMENT [...] on filedocumented in this encounter Care Teams Maintenance Shop Welder Relationship Specialty Start Date End Date Celina Mann DO PCP - General Internal Medicine 03/21/16 11/23/20 Mercedes Han MD [address] [place] [address] PCP - General Internal Medicine 11/24/20 01/11/21 Callum Hernandez DO [address] [place] [address] PCP - General Internal Medicine 01/12/21 03/19/21 Lopez Brennan MD [address] [place], [place] [phone] PCP - General Internal Medicine 03/20/21 10/19/21 Buddy Shaw NP [address] [place] [address] PCP - General Family Practice 10/20/21 01/04/22 [place] [address] PCP - General Internal Medicine 01/05/22 11/28/22 Buddy Shaw NP [address] [place] [address] PCP - General Family Practice 11/29/22 documented as of this encounter
--- OUTSIDE RECORDS SUMMARY | 2024-10-05 08:43 | XMS_ITS | Encounter Summary ---
Author Organization [facility] Address [address] [place] [address] Care Team Providers Care Benzene Washer Name Role Phone Celina Mann DO Primary Care Pro vider Unavailable Mercedes Han MD Primary Care Provider [phone] Celina Mann DO Primary Care Pro vider Unavailable Mercedes Han MD Primary Care Provider [phone] Callum Hernandez DO Primary Care Provider Lopez Lu MD Primary Care Provider Buddy Foy NP Primary Care Provider Unavail [facility] Primary Care Provider Buddy Marlow NP Primary Care Provider Unavail [facility] Encounter Details Date Type Department Care Team Description 08/09/2015 COMPUTER ARCHITECT/Mass[place] Report Medical Records [address] [place] [address] Abstract, Provider Social History Tobacco Use Types [...] on filedocumented in this encounter Care Teams Benzene Washer Relationship Specialty Start Date End Date Celina Mann DO PCP - General Internal Medicine 03/04/15 02/06/16 Mercedes Han MD [address] [place] [address] PCP - General Internal Medicine 02/07/16 03/20/16 Celina Mann DO PCP - General Internal Medicine 03/21/16 11/23/20 Mercedes Han MD [address] [place] [address]697 PCP - General Internal Medicine 11/24/20 01/11/21 Callum Hernandez DO [address] [place] [address] PCP - General Internal Medicine 01/12/21 03/19/21 Lopez Brennan MD [address] [place] [address] PCP - General Internal Medicine 03/20/21 10/19/21 Buddy Shaw NP [address] [place] [address] 13967 PCP - General Family Practice 10/20/21 01/04/22 [facility], Pcp [address] [place] [address]349 PCP - General Internal Medicine 01/05/22 11/28/22 Buddy Shaw NP [address] [place] [address]199 PCP - General Family Practice 11/29/22 documented as of this encounter
--- OUTSIDE RECORDS SUMMARY | 2024-10-05 08:43 | XMS_ITS | Encounter Summary ---
Author Organization [facility] Address [address] [place] [address] Care Team Providers Care Water Systems Designer Name Role Phone Celina Mann DO Primary Care Pro vider Unavailable Mercedes Han MD Primary Care Provider [phone] Callum Hernandez DO Primary Care Provider Lopez Lu MD Primary Care Provider Buddy Foy NP Primary Care Provider Unavail able [facility] Pcp Primary Care Provider Buddy Marlow NP Primary Care Provider Unavail able Encounter Details Date Type Department Care Team Description 04/24/2019 Pt. Non Urgent Medic al Question Adult Medicine [address] [address] Celina Mann DO Social History Tobacco Use [...] EST Subject: Sciatica Dear Dr. I called [facility] and spoke with a nurse case management coordinator for my pain management request. shesaid that [...] on filedocumented in this encounter Care Teams Water Systems Designer Relationship Specialty Start Date End Date Celina Mann DO PCP - General Internal Medicine 03/21/16 11/23/20 Mercedes Han MD [address] [place] [address] PCP - General Internal Medicine 11/24/20 01/11/21 Callum Hernandez DO [address] [place] [address] PCP - General Internal Medicine 01/12/21 03/19/21 Lopez Brennan MD [address] [place] [address] PCP - General Internal Medicine 03/20/21 10/19/21 Buddy Shaw NP [address] [place] [address] PCP - General Family Practice 10/20/21 01/04/22 Naresh, Jan [address] [place] [address] 32310 PCP - General Internal Medicine 01/05/22 11/28/22 Buddy Shaw NP [address] [place] [address] PCP - General Family Practice 11/29/22 documented as of this encounter
--- OUTSIDE RECORDS SUMMARY | 2024-10-05 08:43 | XMS_ITS | Encounter Summary ---
Author Organization [facility] Address [address] [place] [address] Care Team Providers Care Pneumatic Tube Repairer Name Role Phone Celina Mann DO Primary Care Pro vider Unavailable Mercedes Han MD Primary Care Provider [phone] Callum Hernandez DO Primary Care Provider Lopez Lu MD Primary Care Provider Buddy Foy NP Primary Care Provider Unavail able [facility] Pcp Primary Care Provider Buddy Marlow NP Primary Care Provider Unavail able Encounter Details Date Type Department Care Team Description 04/10/2019 Pt. Non Urgent Medic al Question Adult Medicine [address] [address] Celina Mann DO Social History Tobacco Use [...] filedocumented in this encounter Care Teams Pneumatic Tube Repairer Relationship Specialty Start Date End Date Celina Mann DO PCP - General Internal Medicine 03/21/16 11/23/20 Mercedes Han MD [address] [place] [address] PCP - General Internal Medicine 11/24/20 01/11/21 Callum Hernandez DO [address] [place] [address] PCP - General Internal Medicine 01/12/21 03/19/21 Lopez Brennan MD [address] [place] [address] PCP - General Internal Medicine 03/20/21 10/19/21 Buddy Shaw NP [address] [place] [address] PCP - General Family Practice 10/20/21 01/04/22 [facility], Pcp [address] [place], [place] [phone] PCP - General Internal Medicine 01/05/22 11/28/22 Buddy Shaw NP [address] [place] [address] PCP - General Family Practice 11/29/22 documented as of this encounter
--- OUTSIDE RECORDS SUMMARY | 2024-10-05 08:43 | XMS_ITS | Encounter Summary ---
Author Organization [facility] Address [address] [place] [address] Care Team Providers Care Hvac Engineering Technician Name Role Phone Celina Mann DO Primary Care Pro vider Unavailable Mercedes Han MD Primary Care Provider [phone] Callum Hernandez DO Primary Care Provider Lopez Lu MD Primary Care Provider Buddy Foy NP Primary Care Provider Unavail [facility] Pcp Primary Care Provider Budyd Marlow NP Primary Care Provider Unavail able Encounter Details Date Type Department Care Team Description 03/18/2017 Release of Information Medical Records [address] [place] [address] Abstract, Provider Social History Tobacco Use Types [...] on filedocumented in this encounter Care Teams Hvac Engineering Technician Relationship Specialty Start Date End Date Celina Mann DO PCP - General Internal Medicine 03/21/16 11/23/20 Mercedes Han MD [address] [place] [address] PCP - General Internal Medicine 11/24/20 01/11/21 Callum Hernandez DO [address] [place] [address] PCP - General Internal Medicine 01/12/21 03/19/21 Lopez Brennan MD [address] [place] [address] PCP - General Internal Medicine 03/20/21 10/19/21 Buddy Shaw NP [address] [place] [address] PCP - General Family Practice 10/20/21 01/04/22 [facility], Pcp [address] [place] [address] PCP - General Internal Medicine 01/05/22 11/28/22 Buddy Shaw NP [address] [place] [address] PCP - General Family Practice 11/29/22 documented as of this encounter
--- OUTSIDE RECORDS SUMMARY | 2024-10-05 08:43 | XMS_ITS | Encounter Summary ---
Author Organization [facility] Address [address] [place] [address] Care Team Providers Care Animal Pathologist Name Role Phone Celina Mann DO Primary Care Pro vider Unavailable Mercedes Han MD Primary Care Provider [phone] Callum Hernandez DO Primary Care Provider Lopez Lu MD Primary Care Provider Buddy Foy NP Primary Care Provider Unavail able [facility], Pcp Primary Care Provider UnavailBuddy Stephen NP Primary Care Provider Unavail able Reason for Visit * Reason Comments E-prescribe Rx Request Encounter Details Date Type Department Care Team Description 07/12/2020 Refill Adult Medicine [address] [address] Celina Mann DO E-prescribe Rx Request Social [...] encounter Miscellaneous Notes * Telephone Encounter - Nisha Jernigan - 07/12/2020 2:23 PM EST Patient would like script to be: E-PRESCRIBED/FAXED TO PHARMACY WHEN WAS THE PATIENT'S LAST APPOINTMENT IN ADULT MEDICINE? 05/18/2020 WHEN WAS THE LAST TIME THE PATIENT SAW THEIR PCP? 09/25/2019 Does patient have an upcoming appointment? No- patient will call to book appointment (THE MEDICATION REQUESTED IS ON THE MED LIST ABOVE) All of the medications requested were on the CURRENT MEDS list Did you check the Pharmacy information above?: YES Patient wants: 90 -day supply Is this a mail order prescription request ? NO If the refill is from a FAXED refill request what is the RX # listed on the fax? N/A Patients current insurance carrier is: Payor: [employer] [place] / Plan: [facility] $20 [employer] 1 / Product Type: MetafusedO [id number] documented in this encounter Plan of Treatment Not on file documented as of this encounter Visit Diagnoses Not on filedocumented in this encounter Care Teams Animal Pathologist Relationship Specialty Start Date End Date Celina Mann DO PCP - General Internal Medicine 03/21/16 11/23/20 Mercedes Han MD [address] [place] [address] PCP - General Internal Medicine 11/24/20 01/11/21 Callum Hernandez DO [address] [place] [address] PCP - General Internal Medicine 01/12/21 03/19/21 Loepz Brennan MD [address] [place] [address] PCP - General Internal Medicine 03/20/21 10/19/21 Buddy Shaw NP [address] [place] [address] PCP - General Family Practice 10/20/21 01/04/22 [facility] [address] [place] [address] PCP - General Internal Medicine 01/05/22 11/28/22 Buddy Shaw NP [address] [place] [address] PCP - General Family Practice 11/29/22 documented as of this encounter
--- OUTSIDE RECORDS SUMMARY | 2024-10-05 08:43 | XMS_ITS | Encounter Summary ---
Author Organization [facility] Address [address] [place] [address] Care Team Providers Care Auto Travel Counselor Name Role Phone Celina Mann DO Primary Care Pro vider Unavailable Mercedes Han MD Primary Care Provider [phone] Callum Hernandez DO Primary Care Provider Lopez Lu MD Primary Care Provider Buddy Foy NP Primary Care Provider Unavail able [facility], Pcp Primary Care Provider UnavailBuddy Stephen NP Primary Care Provider Unavail able Reason for Visit * Reason Onset Date Comments personal 04/20/2019 Encounter Details Date Type Department Care Team Description 04/20/2019 Telephone Adult [address] [address] Celina Mann DO personal Social History Tobacco [...] on filedocumented in this encounter Care Teams Auto Travel Counselor Relationship Specialty Start Date End Date Celina Mann DO PCP - General Internal Medicine 03/21/16 11/23/20 Mercedes Han MD [address] [place] [address] PCP - General Internal Medicine 11/24/20 01/11/21 Callum Hernandez DO [address] [place] [address] PCP - General Internal Medicine 01/12/21 03/19/21 Lopez Brennan MD [address] [place] [address]878 PCP - General Internal Medicine 03/20/21 10/19/21 Buddy Shaw NP [address] [place] [address]99 PCP - General Family Practice 10/20/21 01/04/22 [facility], [address] [address] PCP - General Internal Medicine 01/05/22 11/28/22 Buddy Shaw NP [address] [place] [address] PCP - General Family Practice 11/29/22 documented as of this encounter
--- OUTSIDE RECORDS SUMMARY | 2024-10-05 08:43 | XMS_ITS | Encounter Summary ---
Author Organization [facility] Address [address] [place] [address] Care Team Providers Care Sql Programmer Name Role Phone Celina Mann DO Primary Care Pro vider Unavailable Mercedes Han MD Primary Care Provider [phone] Celina Mann DO Primary Care Pro vider Unavailable Mercedes Han MD Primary Care Provider [phone] Callum Hernandez DO Primary Care Provider Lopez Lu MD Primary Care Provider Buddy Foy NP Primary Care Provider Unavail [facility] Primary Care Provider Buddy Marlow NP Primary Care Provider Unavail [facility] Encounter Details Date Type Department Care Team Description 06/01/2015 Release of Information Medical Records [address] [place] [id number] Abstract, Provider Social History Tobacco Use Types [...] on filedocumented in this encounter Care Teams Sql Programmer Relationship Specialty Start Date End Date Celina Mann DO PCP - General Internal Medicine 03/04/15 02/06/16 Mercedes Han MD [address] [place] [address] PCP - General Internal Medicine 02/07/16 03/20/16 Celina Mann DO PCP - General Internal Medicine 03/21/16 11/23/20 Mercedes Han MD [address] [place] [address]6 PCP - General Internal Medicine 11/24/20 01/11/21 Callum Hernandez DO [address] [place] [address]67 PCP - General Internal Medicine 01/12/21 03/19/21 Lopez Brennan MD [address] [place] [address] PCP - General Internal Medicine 03/20/21 10/19/21 Buddy Shaw NP [address] [place] [address] PCP - General Family Practice 10/20/21 01/04/22 [facility], Pcp [address] [place] [address] PCP - General Internal Medicine 01/05/22 11/28/22 Buddy Shaw NP [address] [place] [address] PCP - General Family Practice 11/29/22 documented as of this encounter
--- OUTSIDE RECORDS SUMMARY | 2024-10-05 08:43 | XMS_ITS | Encounter Summary ---
Author Organization [facility] Address [address] [place] [address] Care Team Providers Care Certified Physical Therapist Assistant Name Role Phone Celina Mann DO Primary Care Pro vider Unavailable Mercedes Han MD Primary Care Provider [phone] Callum Hernandez DO Primary Care Provider Lopez Lu MD Primary Care Provider Buddy Foy NP Primary Care Provider Unavail [facility] Pcp Primary Care Provider Buddy Marlow NP Primary Care Provider Unavail [facility] Encounter Details Date Type Department Care Team Description 11/10/2019 [facility] Medical Records [address] [place] [address] [facility] Social History Tobacco Use Types Packs/Day [...] on filedocumented in this encounter Care Teams Certified Physical Therapist Assistant Relationship Specialty Start Date End Date Celina Mann DO PCP - General Internal Medicine 03/21/16 11/23/20 Mercedes Han MD [address] [place] [address] PCP - General Internal Medicine 11/24/20 01/11/21 Callum Hernandez DO [address] [place] [address] PCP - General Internal Medicine 01/12/21 03/19/21 Lopez Brennan MD [address] [place] [address] PCP - General Internal Medicine 03/20/21 10/19/21 Buddy Shaw NP [address] [place] [address] PCP - General Family Practice 10/20/21 01/04/22 [facility], Pcp [address] [place] [address] PCP - General Internal Medicine 01/05/22 11/28/22 Buddy Shaw NP [address] [place] [address] PCP - General Family Practice 11/29/22 documented as of this encounter
--- OUTSIDE RECORDS SUMMARY | 2024-10-05 08:43 | XMS_ITS | Encounter Summary ---
Author Organization [facility] Address [address] [place] [address] Care Team Providers Care Pharmacy Messenger Name Role Phone Celina Mann DO Primary Care Pro vider Unavailable Mercedes Han MD Primary Care Provider [phone] Callum Hernandez DO Primary Care Provider Lopez Lu MD Primary Care Provider Buddy Foy NP Primary Care Provider Unavail [facility] Pcp Primary Care Provider Buddy Marlow NP Primary Care Provider Unavail able Encounter Details Date Type Department Care Team Description 10/29/2019 Head Gauge Unit Operator Report Medical Records [address] [place] [address] [facility] Social History Tobacco Use Types Packs/Day Years [...] on filedocumented in this encounter Care Teams Pharmacy Messenger Relationship Specialty Start Date End Date Celina Mann DO PCP - General Internal Medicine 03/21/16 11/23/20 Mercedes Han MD [address] [place] [address] PCP - General Internal Medicine 11/24/20 01/11/21 Callum Hernandez DO [address] [place] [address] PCP - General Internal Medicine 01/12/21 03/19/21 Lopez Brennan MD [address] [place] [address] PCP - General Internal Medicine 03/20/21 10/19/21 Buddy Shaw NP [address] [place] [address] PCP - General Family Practice 10/20/21 01/04/22 [facility], Pcp [address] [place] [address] PCP - General Internal Medicine 01/05/22 11/28/22 Buddy Shaw NP [address] [place] [address] PCP - General Family Practice 11/29/22 documented as of this encounter
--- OUTSIDE RECORDS SUMMARY | 2024-10-05 08:43 | XMS_ITS | Encounter Summary ---
Author Organization [employer] [facility] Address [address] [place] [address] Care Team Providers Care Printing Roller Polisher Name Role Phone Celina Mann DO Primary Care Pro vider Unavailable Mercedes Han MD Primary Care Provider [phone] Callum Hernandez DO Primary Care Provider Lopez Lu MD Primary Care Provider Buddy Foy NP Primary Care Provider Unavail able [facility] Pcp Primary Care Provider Buddy Marlow NP Primary Care Provider Unavail able Encounter Details Date Type Department Care Team Description 10/30/2019 Hemotherapist Report Medical Records [address] [place] [address] Megan Ramírez MD [address] [place] [address] Social History Tobacco Use Types Packs/Day Years [...] on filedocumented in this encounter Care Teams Printing Roller Polisher Relationship Specialty Start Date End Date Celina Mann DO PCP - General Internal Medicine 03/21/16 11/23/20 Mercedes Han MD [address] [place], [place] [id number] PCP - General Internal Medicine 11/24/20 01/11/21 Callum Hernandez DO [address] [place], [place] [phone] PCP - General Internal Medicine 01/12/21 03/19/21 Lopez Brennan MD [address] [place], [place] [phone] PCP - General Internal Medicine 03/20/21 10/19/21 Buddy Shaw NP [address] [place], [place] [address] PCP - General Family Practice 10/20/21 01/04/22 [facility] [place] [address] PCP - General Internal Medicine 01/05/22 11/28/22 Buddy Shaw NP [address] [place] [address] PCP - General Family Practice 11/29/22 documented as of this encounter
--- OUTSIDE RECORDS SUMMARY | 2024-10-05 08:43 | XMS_ITS | Encounter Summary ---
Author Organization [facility] Address [address] [place] [address] Care Team Providers Care Medical Physics Teacher Name Role Phone Celina Mann DO Primary Care Pro vider Unavailable Mercedes Han MD Primary Care Provider [phone] Callum Hernandez DO Primary Care Provider Lopez Lu MD Primary Care Provider Buddy Foy NP Primary Care Provider Unavail [facility] Pcp Primary Care Provider Buddy Marlow NP Primary Care Provider Unavail [facility] Encounter Details Date Type Department Care Team Description 04/07/2020 Dairy Frozen Manager Report Medical Records [address] [place] [address] Raul German Social History Tobacco Use Types [...] on filedocumented in this encounter Care Teams Medical Physics Teacher Relationship Specialty Start Date End Date Celina Mann DO PCP - General Internal Medicine 03/21/16 11/23/20 Mercedes Han MD [address] [place] [address] PCP - General Internal Medicine 11/24/20 01/11/21 Callum Hernandez DO [address] [place] [address] PCP - General Internal Medicine 01/12/21 03/19/21 Lopez Brennan MD [address] [place] [address] PCP - General Internal Medicine 03/20/21 10/19/21 Buddy Shaw NP [address] [place] [address] PCP - General Family Practice 10/20/21 01/04/22 [facility], Pcp [address] [place] [address] PCP - General Internal Medicine 01/05/22 11/28/22 Buddy Shaw NP [address] [place] [address] PCP - General Family Practice 11/29/22 documented as of this encounter
--- OUTSIDE RECORDS SUMMARY | 2024-10-05 08:43 | XMS_ITS | Encounter Summary ---
Author Organization [facility] Address [address] [place] [address] Care Team Providers Care Eap Specialist Name Role Phone Luciano Skinner MD Primary Care Provider Katherine Blake Bourgeois MD Primary Care Provider Unavail able Celina Mann DO Primary Care Pro vider Unavailable Mercedes Han MD Primary Care Provider [phone] Celina Mann DO Primary Care Pro vider Unavailable Mercedes Han MD Primary Care Provider [phone] Callum Hernandez DO Primary Care Provider Katherine Lopez Aragon MD Primary Care Provider UnaBuddy Castellanos NP Primary Care Provider Unavail able [facility], Pcp Primary Care Provider UnavailBuddy Stephen NP Primary Care Provider Unavail able Encounter Details Date Type Department Care Team Description 01/27/2013 Freight Traffic Consultant Report Medical Records [address] [place] [address] Jesús Martinez Social History Tobacco Use Types [...] on filedocumented in this encounter Care Teams Eap Specialist Relationship Specialty Start Date End Date Luciano Skinner MD PCP - General 12/13/10 05/10/14 Blake Rivera MD PCP - General Internal Medicine 05/11/14 03/03/15 Celina Mann, DO PCP - General Internal Medicine 03/04/15 02/06/16 Mercedes Han MD [address] [place] [address] PCP - General Internal Medicine 02/07/16 03/20/16 Celina Mann, PCP - General Internal Medicine 03/21/16 11/23/20 Mercedes Han MD [address] [place] [address] PCP - General Internal Medicine 11/24/20 01/11/21 Callum Hernandez DO [address] [place] [address] PCP - General Internal Medicine 01/12/21 03/19/21 Lopez Brennan MD [address] [place] [address] PCP - General Internal Medicine 03/20/21 10/19/21 Buddy Shaw NP [address] [place] [address] PCP - General Family Practice 10/20/21 01/04/22 [facility], Pcp [address] [place] [address] PCP - General Internal Medicine 01/05/22 11/28/22 Buddy Shwa NP [address] [place] [address] PCP - General Family Practice 11/29/22 documented as of this encounter
--- OUTSIDE RECORDS SUMMARY | 2024-10-05 08:43 | XMS_ITS | Encounter Summary ---
Author Organization [facility] Address [address] [place] [address] Care Team Providers Care Scheduling Specialist Name Role Phone Luciano Skinner MD Primary Care Provider Katherine Blake Bourgeois MD Primary Care Provider Unavail able Celina Mann DO Primary Care Pro vider Unavailable Mercedes Han MD Primary Care Provider [phone] Celina Mann DO Primary Care Pro vider Unavailable Mercedes Han MD Primary Care Provider [phone] Callum Hernandez DO Primary Care Provider Katherine Lopez Aragon MD Primary Care Provider UnaBuddy Castellanos NP Primary Care Provider Unavail able [facility], Pcp Primary Care Provider UnavailBuddy Stephen NP Primary Care Provider Unavail able Encounter Details Date Type Department Care Team Description 02/24/2013 Boiler Shop Mechanic Report Medical Records [address] [place] [address] Jesús Martinez Social History Tobacco Use Types [...] on filedocumented in this encounter Care Teams Scheduling Specialist Relationship Specialty Start Date End Date Luciano Skinner MD PCP - General 12/13/10 05/10/14 Blake Rivera MD PCP - General Internal Medicine 05/11/14 03/03/15 Celina Mann, DO PCP - General Internal Medicine 03/04/15 02/06/16 Mercedes Han MD [address] [place] [address] PCP - General Internal Medicine 02/07/16 03/20/16 Celina Mann, PCP - General Internal Medicine 03/21/16 11/23/20 Mercedes Han MD [address] [place] [address] PCP - General Internal Medicine 11/24/20 01/11/21 Callum Hernandez DO [address] [place] [address] PCP - General Internal Medicine 01/12/21 03/19/21 Lopez Brennan MD [address] [place] [address] PCP - General Internal Medicine 03/20/21 10/19/21 Buddy Shaw NP [address] [place] [address] PCP - General Family Practice 10/20/21 01/04/22 [facility], Pcp [address] [place] [address] PCP - General Internal Medicine 01/05/22 11/28/22 Buddy Shaw NP [address] [place] [address] PCP - General Family Practice 11/29/22 documented as of this encounter
--- OUTSIDE RECORDS SUMMARY | 2024-10-05 08:43 | XMS_ITS | Encounter Summary ---
Author Organization [facility] Address [address] [place] [address] Care Team Providers Care Research And Insights Executive Name Role Phone Celina Mann DO Primary Care Pro vider Unavailable Mercedes Han MD Primary Care Provider [phone] Callum Hernandez DO Primary Care Provider Lopez Lu MD Primary Care Provider Buddy Foy NP Primary Care Provider Unavail able [facility], Pcp Primary Care Provider Buddy Marlow NP Primary Care Provider Unavail able Reason for Referral * EXTERNAL (Routine) - Authorized/Booked Specialty Diagnoses / Procedures Referred By Kailey dominguez Referred To Contact PAIN MANAGEMENT / Pain Management Procedures REFERRAL TO PAIN MANAGEMENT Jo Ann Clinton PA-C [address] [place] [address] Maddy Iraheta NP [address] [place] [address] Referral ID Status Reason Start Date Expiration Date V isits Requested Visits Authorized SEE NOTE Authorized/B ooked 04/20/2019 07/24/2019 1 1 Reason for Visit * Reason Onset Date Comments 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 Encounter Details Date Type Department Care Team Description 04/20/2019 Telephone Adult Medicine [facility] [address] [place] [address] Celina Mann DO Window Air Conditioner Installer Feedback (pain management referral ) Social History [...] filedocumented in this encounter Care Teams Research And Insights Executive Relationship Specialty Start Date End Date Celina Mann DO PCP - General Internal Medicine 03/21/16 11/23/20 Mercedes Han MD [address] [place] [address] PCP - General Internal Medicine 11/24/20 01/11/21 Callum Hernandez DO [address] [place] [address] PCP - General Internal Medicine 01/12/21 03/19/21 Lopez Brennan MD [address] [place] [address] PCP - General Internal Medicine 03/20/21 10/19/21 Buddy Shaw NP [address] [place] [address] PCP - General Family Practice 10/20/21 01/04/22 [facility], Pcp [address] [place] [address] PCP - General Internal Medicine 01/05/22 11/28/22 Buddy Shaw NP [address] [place] [address] PCP - General Family Practice 11/29/22 documented as of this encounter
--- OUTSIDE RECORDS SUMMARY | 2024-10-05 08:43 | XMS_ITS | Encounter Summary ---
Author Organization [facility] Address [address] [place] [address] Care Team Providers Care Sole Painter Name Role Phone Celina Mann DO Primary Care Pro vider Unavailable Mercedes Han MD Primary Care Provider [phone] Callum Hernandez DO Primary Care Provider Lopez Lu MD Primary Care Provider Buddy Foy NP Primary Care Provider Unavail able [facility], Pcp Primary Care Provider Buddy Marlow NP Primary Care Provider Unavail able Reason for Visit * Reason Comments E-prescribe Rx Request Encounter Details Date Type Department Care Team Description 10/23/2019 Refill Adult Medicine [address] [address] Celina Mann DO E-prescribe Rx Request Social [...] N/A Patients current insurance carrier is: Payor: [employer] [place] / Plan: [employer] $20 SHENANDOAH 1 / Product Type: HMO [id number] documented in this encounter Plan of Treatment Not on file documented as of this encounter Visit Diagnoses Not on filedocumented in this encounter Care Teams Sole Painter Relationship Specialty Start Date End Date Celina Mann DO PCP - General Internal Medicine 03/21/16 11/23/20 Mercedes Han MD [address] [place] [address] PCP - General Internal Medicine 11/24/20 01/11/21 Callum Hernandez DO [address] [place] [address] PCP - General Internal Medicine 01/12/21 03/19/21 Lopez Brennan MD [address] [place] [address]22 PCP - General Internal Medicine 03/20/21 10/19/21 Buddy Shaw NP [address] [place] [address] PCP - General Family Practice 10/20/21 01/04/22 [facility], Pcp [address] [place] [address] PCP - General Internal Medicine 01/05/22 11/28/22 Buddy Shaw NP [address] [place] [address] PCP - General Family Practice 11/29/22 documented as of this encounter
--- OUTSIDE RECORDS SUMMARY | 2024-10-05 08:43 | XMS_ITS | Encounter Summary ---
Author Organization [facility] Address [address] [place] [address] Care Team Providers Care Materials Analyst Name Role Phone Celina Mann DO Primary Care Pro vider Unavailable Mercedes Han MD Primary Care Provider [phone] Callum Hernandez DO Primary Care Provider Lopez Lu MD Primary Care Provider Buddy Foy NP Primary Care Provider Unavail able [facility] Pcp Primary Care Provider UnavailBuddy Stephen NP Primary Care Provider Unavail able Reason for Visit * Reason Comments E-prescribe Rx Request Encounter Details Date Type Department Care Team Description 03/21/2019 Refill Adult Medicine [address] [address] Sophia Cervantes NP E-prescribe Rx Request Social [...] N/A Patients current insurance carrier is: Payor: [employer] [place] / Plan: [employer] A/S $20 MARKS 1 / Product Type: [employer] [id number] documented in this encounter Plan of Treatment Not on file documented as of this encounter Visit Diagnoses Not on filedocumented in this encounter Care Teams Materials Analyst Relationship Specialty Start Date End Date Celina Mann DO PCP - General Internal Medicine 03/21/16 11/23/20 Mercedes Han MD [address] [place] [address] PCP - General Internal Medicine 11/24/20 01/11/21 Callum Hernandez DO [address] [place], [place] [phone] PCP - General Internal Medicine 01/12/21 03/19/21 Lopez Brennan MD [address] [place] [address] PCP - General Internal Medicine 03/20/21 10/19/21 Buddy Shaw NP [address] [place] [address] PCP - General Family Practice 10/20/21 01/04/22 [facility] [address] [place] [address] PCP - General Internal Medicine 01/05/22 11/28/22 Buddy Shaw NP [address] [place] [address] PCP - General Family Practice 11/29/22 documented as of this encounter
--- OUTSIDE RECORDS SUMMARY | 2024-10-05 08:43 | XMS_ITS | Encounter Summary ---
Author Organization [facility] Address [address] [place] [address] Care Team Providers Care Plug Drill Operator Name Role Phone Luciano Skinner MD Primary Care Provider Katherine Blake Bourgeois MD Primary Care Provider Unavail able Celina Mann DO Primary Care Pro vider Unavailable Mercedes Han MD Primary Care Provider [phone] Celina Mann DO Primary Care Pro vider Unavailable Mercedes Han MD Primary Care Provider [phone] Callum Hernandez DO Primary Care Provider Katherine Lopez Aragon MD Primary Care Provider Buddy Foy NP Primary Care Provider Unavail able [facility] Primary Care Provider UnavailBuddy Stephen NP Primary Care Provider Unavail able Encounter Details Date Type Department Care Team Description 04/09/2013 Release of Information Medical Records [address] [place] [id number] Abstract, Provider Social History Tobacco Use Types [...] on filedocumented in this encounter Care Teams Plug Drill Operator Relationship Specialty Start Date End Date Luciano Skinner MD PCP - General 12/13/10 05/10/14 Blake Rivera MD PCP - General Internal Medicine 05/11/14 03/03/15 Celina Mann, DO PCP - General Internal Medicine 03/04/15 02/06/16 Mercedes Han MD [address] [place] [address] PCP - General Internal Medicine 02/07/16 03/20/16 Celina Mann, PCP - General Internal Medicine 03/21/16 11/23/20 Mercedes Han MD [address] [place] [address] PCP - General Internal Medicine 11/24/20 01/11/21 Callum Hernandez DO [address] [place] [address] PCP - General Internal Medicine 01/12/21 03/19/21 Lopez Brennan MD [address] [place] [address] PCP - General Internal Medicine 03/20/21 10/19/21 Buddy Shaw NP [address] [place] [address]156 PCP - General Family Practice 10/20/21 01/04/22 [facility], Pcp [address] [place] [address] PCP - General Internal Medicine 01/05/22 11/28/22 Buddy Shaw NP [address] [place] [address] PCP - General Family Practice 11/29/22 documented as of this encounter
--- OUTSIDE RECORDS SUMMARY | 2024-10-05 08:43 | XMS_ITS | Encounter Summary ---
Author Organization [facility] Address [address] [place] [address] Care Team Providers Care Assistant Product Manager Name Role Phone Celina Mann DO Primary Care Pro vider Unavailable Mercedes Han MD Primary Care Provider Callum Hernandez DO Primary Care Provider Lopez Lu MD Primary Care Provider Buddy Foy NP Primary Care Provider Unavail able [facility], Pcp Primary Care Provider UnavailBuddy Stephen NP Primary Care Provider Unavail able Reason for Visit * Reason Onset Date Comments Prior Authorization 10/07/2019 Encounter Details Date Type Department Care Team Description 10/07/2019 Telephone Adult Medicine [address] [address] Celina Mann DO Prior Authorization Social History [...] be used Please reply back to p [id number] Prior Auth pool Celina Miller M.A. [facility] Prior Authorizations Ext [phone] Fax: [phone] reply back to p [phone] Prior [facility] * Telephone Encounter - Quinten Alvarado - 10/07/2019 2:26 PM EDT Prior Authorization for Medication-do not complete and send this encounter unless you have the fax from the pharmacy. Is this a Cover My Meds request: Yes -- Ramirez Code [id number] Name of Medication Mometasone Furoate Dose of Medication 50mcg/act suspension What is the RX # from the faxed refill? Not on form How does patient take this med? Not on form What Pharmacy [facility] fax #: Not on form Third [employer] Party Information from fax: What Prescription Plan does [...] filedocumented in this encounter Care Teams Assistant Product Manager Relationship Specialty Start Date End Date Celina Mann DO PCP - General Internal Medicine 03/21/16 11/23/20 Mercedes Han MD [address] [place] [address] PCP - General Internal Medicine 11/24/20 01/11/21 Callum Hernandez DO [address] [place] [address] PCP - General Internal Medicine 01/12/21 03/19/21 Lopez Brennan MD [address] [place] [address] PCP - General Internal Medicine 03/20/21 10/19/21 Buddy Shaw NP [address] [place] [address] PCP - General Family Practice 10/20/21 01/04/22 [facility], Pcp [address] [place] [address] PCP - General Internal Medicine 01/05/22 11/28/22 Buddy Shaw NP [address] [place] [address] PCP - General Family Practice 11/29/22 documented as of this encounter
--- OUTSIDE RECORDS SUMMARY | 2024-10-05 08:43 | XMS_ITS | Encounter Summary ---
Author Organization [facility] Address [address] [place] [address] Care Team Providers Care Scroll Assembler Name Role Phone Celina Mann DO Primary Care Pro vider Unavailable Mercedes Han MD Primary Care Provider [phone] Callum Hernandez DO Primary Care Provider Lopez Lu MD Primary Care Provider Buddy Foy NP Primary Care Provider Unavail able [facility], Pcp Primary Care Provider Buddy Marlow NP Primary Care Provider Unavail able Encounter Details Date Type Department Care Team Description 03/22/2018 Pt. Non Urgent Medical Question Pulmonology - [place] [address] [place] [phone] Eula [place] FNP [address] [place] [address] Social History Tobacco Use Types Packs/Day Years [...] on filedocumented in this encounter Care Teams Scroll Assembler Relationship Specialty Start Date End Date Celina Mann DO PCP - General Internal Medicine 03/21/16 11/23/20 Mercedes Han MD [address] [place] [address] PCP - General Internal Medicine 11/24/20 01/11/21 Callum Hernandez DO [address] [place] [address] PCP - General Internal Medicine 01/12/21 03/19/21 Lopez Brennan MD [address] [place] [address] PCP - General Internal Medicine 03/20/21 10/19/21 Buddy Shaw NP [address] [place] [address] PCP - General Family Practice 10/20/21 01/04/[address] [address] PCP - General Internal Medicine 01/05/22 11/28/22 Buddy Shaw NP [address] [place] [address] PCP - General Family Practice 11/29/22 documented as of this encounter
--- OUTSIDE RECORDS SUMMARY | 2024-10-05 08:43 | XMS_ITS | Encounter Summary ---
Author Organization [facility] Address [address] [place] [address] Care Team Providers Care General Administrator Name Role Phone Celina Mann DO Primary Care Pro vider Unavailable Mercedes Han MD Primary Care Provider [phone] Callum Hernandez DO Primary Care Provider Lopez Lu MD Primary Care Provider Buddy Foy NP Primary Care Provider Unavail able [facility], Pcp Primary Care Provider UnavailBuddy Stephen NP Primary Care Provider Unavail able Reason for Visit * Reason Onset Date Comments Sweating, Excessive 01/19/2018 Encounter Details Date Type Department Care Team Description 01/19/2018 Pt. Non Urgent Medic al Question Adult Medicine [address] [address] Celina Mann DO Social History Tobacco Use [...] on filedocumented in this encounter Care Teams General Administrator Relationship Specialty Start Date End Date Celina Mann DO PCP - General Internal Medicine 03/21/16 11/23/20 Mercedes Han MD [address] [place] [address] PCP - General Internal Medicine 11/24/20 01/11/21 Callum Hernandez DO [address] [place] [address] PCP - General Internal Medicine 01/12/21 03/19/21 Lopez Brennan MD [address] [place] [address]31 PCP - General Internal Medicine 03/20/21 10/19/21 Buddy Shaw NP [address] [place] [address]86 PCP - General Family Practice 10/20/21 01/04/22 [facility], Pcp [address] [place] [address] PCP - General Internal Medicine 01/05/22 11/28/22 Buddy Shaw NP [address] [place] [address] PCP - General Family Practice 11/29/22 documented as of this encounter
--- OUTSIDE RECORDS SUMMARY | 2024-10-05 08:43 | XMS_ITS | Encounter Summary ---
Author Organization [facility] Address [address] [place] [address] Care Team Providers Care Mcat Instructor Name Role Phone Celina Mann DO Primary Care Pro vider Unavailable Mercedes Han MD Primary Care Provider [phone] Callum Hernandez DO Primary Care Provider Lopez Lu MD Primary Care Provider Buddy Foy NP Primary Care Provider Unavail [facility] Pcp Primary Care Provider Buddy Marlow NP Primary Care Provider Unavail able Encounter Details Date Type Department Care Team Description 11/24/2018 [facility] Medical Records [address] [place] [address] Carina Luo Social History Tobacco Use Types [...] on filedocumented in this encounter Care Teams Mcat Instructor Relationship Specialty Start Date End Date Celina Mann DO PCP - General Internal Medicine 03/21/16 11/23/20 Mercedes Han MD [address] [place] [address] PCP - General Internal Medicine 11/24/20 01/11/21 Callum Hernandez DO [address] [place] [address] PCP - General Internal Medicine 01/12/21 03/19/21 Lopez Brennan MD [address] [place] [address] PCP - General Internal Medicine 03/20/21 10/19/21 Buddy Shaw NP [address] [place] [address] PCP - General Family Practice 10/20/21 01/04/22 [facility], Pcp [address] [place] [address] PCP - General Internal Medicine 01/05/22 11/28/22 Buddy Shaw NP [address] [place], [place] [address] PCP - General Family Practice 11/29/22 documented as of this encounter
--- OUTSIDE RECORDS SUMMARY | 2024-10-05 08:43 | XMS_ITS | Encounter Summary ---
Author Organization [facility] Address [address] [place] [address] Care Team Providers Care Family Law Paralegal Name Role Phone Luciano Skinner MD Primary Care Provider Katherine Blake Bourgeois MD Primary Care Provider Unavail able Celina Mann DO Primary Care Pro vider Unavailable Mercedes Han MD Primary Care Provider [phone] Celina Mann DO Primary Care Pro vider Unavailable Mercedes Han MD Primary Care Provider [phone] Callum Hernandez DO Primary Care Provider Katherine Lopez Aragon MD Primary Care Provider UnaBuddy Castellanos NP Primary Care Provider Unavail able [facility], Pcp Primary Care Provider UnavailBuddy Stephen NP Primary Care Provider Unavail able Encounter Details Date Type Department Care Team Description 06/15/2011 Telephone Adult [address] [address] Luciano Skinner MD Social History Tobacco Use [...] on filedocumented in this encounter Care Teams Family Law Paralegal Relationship Specialty Start Date End Date Luciano Skinner MD PCP - General 12/13/10 05/10/14 Blake Rivera MD PCP - General Internal Medicine 05/11/14 03/03/15 Celina Mann DO PCP - General Internal Medicine 03/04/15 02/06/16 Mercedes Han MD [address] [place], [place] [id number] PCP - General Internal Medicine 02/07/16 03/20/16 Celina Mann, PCP - General Internal Medicine 03/21/16 11/23/20 Mercedes Han MD [address] [place] [address] PCP - General Internal Medicine 11/24/20 01/11/21 Callum Hernandez DO [address] [place] [address] PCP - General Internal Medicine 01/12/21 03/19/21 Lopez Brennan MD [address] [place] [address] PCP - General Internal Medicine 03/20/21 10/19/21 Buddy Shaw NP [address] [place] [address] PCP - General Family Practice 10/20/21 01/04/22 [facility], [address] [address] PCP - General Internal Medicine 01/05/22 11/28/22 Buddy Shaw NP [address] [place] [address] PCP - General Family Practice 11/29/22 documented as of this encounter
--- OUTSIDE RECORDS SUMMARY | 2024-10-05 08:43 | XMS_ITS | Encounter Summary ---
Author Organization [facility] Address [address] [place] [address] Care Team Providers Care Engineering Programmer Name Role Phone Luciano Skinner MD Primary Care Provider Katherine Blaek Bourgeois MD Primary Care Provider Unavail able Celina Mann DO Primary Care Pro vider Unavailable Mercedes Han MD Primary Care Provider + [phone] Celina Mann DO Primary Care Pro vider Unavailable Mercedes Han MD Primary Care Provider + [phone] Callum Hernandez DO Primary Care Provider Katherine Lopez Aragon MD Primary Care Provider UnaBuddy Castellanos NP Primary Care Provider Unavail able [facility], Pcp Primary Care Provider UnavailBuddy Stephen NP Primary Care Provider Unavail able Encounter Details Date Type Department Care Team Description 02/17/2013 Hospital Medical Records [address] [place] [address] Nilton Kumar Social History Tobacco Use Types [...] on filedocumented in this encounter Care Teams Engineering Programmer Relationship Specialty Start Date End Date Luciano Skinner MD PCP - General 12/13/10 05/10/14 Blake Rivera MD PCP - General Internal Medicine 05/11/14 03/03/15 Celina Mann, PCP - General Internal Medicine 03/04/15 02/06/16 Mercedes Han MD [address] [place] [address] PCP - General Internal Medicine 02/07/16 03/20/16 Celina Mann, PCP - General Internal Medicine 03/21/16 11/23/20 Mercedes Han MD [address] [place] [address] PCP - General Internal Medicine 11/24/20 01/11/21 Callum Hernandez DO [address] [place] [address] PCP - General Internal Medicine 01/12/21 03/19/21 Lopez Brennan MD [address] [place] [address] PCP - General Internal Medicine 03/20/21 10/19/21 Buddy Shaw NP [address] [place] [address] PCP - General Family Practice 10/20/21 01/04/22 [facility], [address] [address] PCP - General Internal Medicine 01/05/22 11/28/22 Buddy Shaw NP [address] [place] [address] PCP - General Family Practice 11/29/22 documented as of this encounter
--- OUTSIDE RECORDS SUMMARY | 2024-10-05 08:43 | XMS_ITS | Encounter Summary ---
Author Organization [facility] Address [address] [place] [address] Care Team Providers Care Drying And Winding Supervisor Name Role Phone Celina Mann DO Primary Care Pro vider Unavailable Mercedes Han MD Primary Care Provider [phone] Callum Hernandez DO Primary Care Provider Lopez Lu MD Primary Care Provider Buddy Foy NP Primary Care Provider Unavail able [facility], Pcp Primary Care Provider Buddy Marlow NP Primary Care Provider Unavail able Encounter Details Date Type Department Care Team Description 03/03/2018 Pt. Non Urgent Medical Question Pulmonology - [place] [address] [place] [phone] Eula Norris FNP [address] [place] [address] Social History Tobacco Use Types Packs/Day Years [...] Lujan - 03/03/2018 8:08 PM EDTFrom: Nereida Godadrd To: LESVIA Lujan Sent: 03/03/2018 6:11 PM EDT Subject: CPAP equipment Dear Eula I've been trying to reach you last week and a good part of this morning I had a tough time trying to get through I realize you've been trying to get ahold of me also I spoke to the hotel receptionist and she said that there is really nothing available and that I should just keep trying everyday to see if there's a cancellation but in the meantime my headgear is all stretched out and I need new equipment I've reached out to a couple of different places that accept my insurance for equipmentbut they need my sleep apnea test from my radiology nurse documented in this encounter Plan of Treatment Not on file documented as of this encounter Visit Diagnoses Not on filedocumented in this encounter Care Teams Drying And Winding Supervisor Relationship Specialty Start Date End Date Celina Mann DO PCP - General Internal Medicine 03/21/16 11/23/20 Mercedes Han MD [address] [place] [address] PCP - General Internal Medicine 11/24/20 01/11/21 Callum Hernandez DO [address] [place] [address] PCP - General Internal Medicine 01/12/21 03/19/21 Lopez Brennan MD [address] [place] [address] PCP - General Internal Medicine 03/20/21 10/19/21 Bdudy Shaw NP [address] [place], [place] [phone] PCP - General Family Practice 10/20/21 01/04/22 [facility], [place] [phone] PCP - General Internal Medicine 01/05/22 11/28/22 Buddy Shaw NP [address] [place] [address] PCP - General Family Practice 11/29/22 documented as of this encounter
--- OUTSIDE RECORDS SUMMARY | 2024-10-05 08:44 | XMS_ITS | Encounter Summary ---
Author Organization [facility] Address [address] [place] [address] Care Team Providers Care Retaining Room Cutter Name Role Phone Buddy Shaw HEALTH PROFESSOR Primary Care Provider Unavail able [facility], Pcp Primary Care Provider Unavailabl Buddy Irving HEALTH PROFESSOR Primary Care Provider Unavail able Reason for Visit * Reason Onset Date Comments DME Request 10/26/2021 Encounter Details Date Type Department Care Team Description 10/26/2021 Telephone Pulmonology - [place] [address] [facility] [address] [place] [address] [facility] [address] [place] [address] DME Request Social History Tobacco Use Types [...] on filedocumented in this encounter Care Teams Retaining Room Cutter Relationship Specialty Start Date End Date Buddy Shaw NP PCP - General Family Practice 10/20/21 01/04/22 [facility], Pcp PCP - General Internal Medicine 01/05/22 11/28/22 Buddy hSaw NP PCP - General Family Practice 11/29/22 documented as of this encounter
--- OUTSIDE RECORDS SUMMARY | 2024-10-05 08:44 | XMS_ITS | Encounter Summary ---
Author Organization [facility] Address [address] [place] [address] Care Team Providers Care Pantograph Machine Operator Name Role Phone Celina Mann DO Primary Care Pro vider Unavailable Mercedes Hna MD Primary Care Provider [phone] Callum Hernandez DO Primary Care Provider Lopez Lu MD Primary Care Provider Buddy Foy NP Primary Care Provider Unavail able [facility] Pcp Primary Care Provider Buddy Marlow NP Primary Care Provider Unavail able Encounter Details Date Type Department Care Team Description 09/09/2018 Orange Picker Machine Operator Report Medical Records [address] [place] [address] Nola Peacock PA-C [address] [place] [phone] Social History Tobacco Use Types Packs/Day [...] on filedocumented in this encounter Care Teams Pantograph Machine Operator Relationship Specialty Start Date End Date Celina Mann DO PCP - General Internal Medicine 03/21/16 11/23/20 Mercedes Han MD [address] [place] [address] PCP - General Internal Medicine 11/24/20 01/11/21 Callum Hernandez DO [address] [place] [address] PCP - General Internal Medicine 01/12/21 03/19/21 Lopez Brennan MD [address] [place], [place] [phone] PCP - General Internal Medicine 03/20/21 10/19/21 Buddy Shaw NP [address] [place] [address] PCP - General Family Practice 10/20/21 01/04/22 [facility], Pcp [address] [place] [address] PCP - General Internal Medicine 01/05/22 11/28/22 Buddy Shaw NP [address] [place] [address] PCP - General Family Practice 11/29/22 documented as of this encounter
--- OUTSIDE RECORDS SUMMARY | 2024-10-05 08:44 | XMS_ITS | Encounter Summary ---
Author [facility] Address [address] [place] [address] Care Team Providers Care Manager Market Intelligence Name Role Phone Lopez Brennan MD Primary Care Provider Buddy Foy NP Primary Care Provider Unavail able [facility], Pcp Primary Care Provider Buddy Marlow GASTROENTEROLOGY TEACHER Primary Care Provider Unavail able Encounter Details Date Type Department Care Team Description 07/11/2021 Telephone Adult [address] [address] Lopez Brennan MD Social History Tobacco Use Types Packs/Day [...] filedocumented in this encounter Care Teams Manager Market Intelligence Relationship Specialty Start Date End Date Lopez Brennan MD PCP - General Internal Medicine 03/20/21 10/19/21 Buddy Shaw NP PCP - General Family Practice 10/20/21 01/04/22 [facility], Pcp PCP - General Internal Medicine 01/05/22 11/28/22 Buddy Shaw NP PCP - General Family Practice 11/29/22 documented as of this encounter
--- OUTSIDE RECORDS SUMMARY | 2024-10-05 08:44 | XMS_ITS | Encounter Summary ---
Author Organization [facility] Address [address] [place] [address] Care Team Providers Care Project Archivist Name Role Phone Lopez Brennan MD Primary Care Provider Buddy Foy NP Primary Care Provider Unavail able [facility], Pcp Primary Care Provider Adrianaabl Buddy Irving NP Primary Care Provider Unavail able Reason for Visit * Reason Onset Date Comments APPOINTMENT 10/09/2021 Encounter Details Date Type Department Care Team Description 10/09/2021 Telephone Pulmonology - [place] [address] [facility] [address] [place] [address] Leonarda Norris [facility] [address] [place] [address] APPOINTMENT Social History Tobacco Use Types Packs/Day [...] on filedocumented in this encounter Care Teams Project Archivist Relationship Specialty Start Date End Date Keily Brennan-MD Kranthi PCP - General Internal Medicine 03/20/21 10/19/21 Buddy Shaw NP PCP - General Family Practice 10/20/21 01/04/22 [facility], Pcp PCP - General Internal Medicine 01/05/22 11/28/22 Buddy Shaw NP PCP - General Family Practice 11/29/22 documented as of this encounter
--- OUTSIDE RECORDS SUMMARY | 2024-10-05 08:44 | XMS_ITS | Encounter Summary ---
Author [facility] Address [address] [place] [address] Care Team Providers Care Cloth Baler Name Role Phone Luciano Skinner MD Primary Care Provider Katherine Blake Bourgeois MD Primary Care Provider Unavail able Celina Mann DO Primary Care Pro vider Unavailable Mercedes Han MD Primary Care Provider [phone] Celina Mann DO Primary Care Pro vider Unavailable Mercedes Han MD Primary Care Provider [phone] Callum Hernandez DO Primary Care Provider Katherine Lopez Aragon MD Primary Care Provider UnaBuddy Castellanos NP Primary Care Provider Unavail able [facility], Pcp Primary Care Provider UnavailBuddy Stephen NP Primary Care Provider Unavail able Encounter Details Date Type Department Care Team Description 04/18/2011 [place] Machine Operator Report Medical Records [address] [place] [address] Chi Pierre Social History Tobacco Use Types [...] filedocumented in this encounter Care Teams Cloth Baler Relationship Specialty Start Date End Date Luciano Skinner MD PCP - General 12/13/10 05/10/14 Blake Rivera MD PCP - General Internal Medicine 05/11/14 03/03/15 Celina Mann, PCP - General Internal Medicine 03/04/15 02/06/16 Mercedes Han MD [address] [place] [address] PCP - General Internal Medicine 02/07/16 03/20/16 Celina Mann, PCP - General Internal Medicine 03/21/16 11/23/20 Mercedes Han MD [address] [place] [address] PCP - General Internal Medicine 11/24/20 01/11/21 Callum Hernandez DO [address] [place] [address] PCP - General Internal Medicine 01/12/21 03/19/21 Lopez Brennan MD [address] [place] [address] PCP - General Internal Medicine 03/20/21 10/19/21 Buddy Shaw NP [address] [place] [address] PCP - General Family Practice 10/20/21 01/04/22 [facility], Pcp [address] [place] [address] PCP - General Internal Medicine 01/05/22 11/28/22 Buddy Shaw NP [address] [place] [address] PCP - General Family Practice 11/29/22 documented as of this encounter
--- OUTSIDE RECORDS SUMMARY | 2024-10-05 08:44 | XMS_ITS ---
Author Organization [facility] Address [address] [place] [address] Care Team Providers Care Transit Clerk Name Role Phone Buddy Bolden Primary Care Provider Unav ailable Leandro Harvey Unavailable [phone] REASON FOR VISIT SD cx 1/3 Encounters Encounter Location Date Provider Diagnosis [facility] [address] [place] [address] 06/05/2024 Leandro Harvey Plan Of Treatment No Information Progress Notes * Nereida MCBRIDE ADOB:[birth year] (69 yo F)Acc No.[id number]:06/05/2024 Patient:?Nereida MCBRIDE :1955???Age:69 Y???Sex:Female Address:[address] [place], [address] * true * Date:? Generated for Printi sue/Anais/eTransmitting on:?10/05/2024 08:43 AM EDT
--- OUTSIDE RECORDS SUMMARY | 2024-10-05 08:44 | XMS_ITS | Encounter Summary ---
[facility] Organization [facility] Address [address] [place] [address] Care Team Providers Care Nuclear Medicine Physician Name Role Phone Lopez Brennan MD Primary Care Provider Buddy Foy NP Primary Care Provider Unavail able [facility], Pcp Primary Care Provider Buddy Marlow DIELECTRIC TESTER Primary Care Provider Unavail able Encounter Details Date Type Department Care Team Description 03/30/2021 Glass Block Bender Report Medical Records [address] [place] [address] Shell Day DPM Social History Tobacco Use [...] on filedocumented in this encounter Care Teams Nuclear Medicine Physician Relationship Specialty Start Date End Date Lopez Brennan MD PCP - General Internal Medicine 03/20/21 10/19/21 Buddy Shaw NP PCP - General Family Practice 10/20/21 01/04/22 [facility] License [facility], Pcp PCP - General Internal Medicine 01/05/22 11/28/22 Buddy Shaw NP PCP - General Family Practice 11/29/22 documented as of this encounter
--- OUTSIDE RECORDS SUMMARY | 2024-10-05 08:44 | XMS_ITS ---
Author Organization [facility] Address [address] [place] [address] Care Team Providers Care Research Interviewer Name Role Phone Buddy Bolden Primary Care Provider Unav ailable Leandro Harvey Unavailable [phone] Martinez Encounters Encounter Location Date Provider Diagnosis [facility] [address] [place] [address] 03/10/2024 Leandro Harvey Plan Of Treatment No Information Progress Notes * Nereida MCBRIDE ADOB:[birth year] (69 yo F)Acc No.[id number]:03/10/2024 Progress Note Patient:?Nereida MCBRIDE Provider:?Leandro Harvey DPM [...] Harvey DPM Date:?2023 Generated for Gale rogers/Anais/Cassie on:?10/05/2024 08:44 AM EDT
--- OUTSIDE RECORDS SUMMARY | 2024-10-05 08:44 | XMS_ITS | Encounter Summary ---
Author Organization [facility] Address [address] [place] [address] Care Team Providers Care Machine Farmworker Name Role Phone Luciano Skinner MD Primary Care Provider Katherine Javed Lindsay MD Primary Care Provider UnaBlake Traore MD Primary Care Provider Unavail able Celina Mann DO Primary Care Pro vider Unavailable Mercedes Han MD Primary Care Provider + [phone] Celina Mann DO Primary Care Pro vider Unavailable Mercedes Han MD Primary Care Provider + [phone] Callum Hernandez DO Primary Care Provider Katherine Lopez Aragon MD Primary Care Provider Buddy Foy NP Primary Care Provider Unavail able [facility], [facility] Primary Care Provider UnavailBuddy Stephen NP Primary Care Provider Unavail able Encounter Details Date Type Department Care Team Description 06/28/2010 Flame Burner Report Medical Records [address] [place] [address] Chi Pierre Social History Tobacco Use Types [...] filedocumented in this encounter Care Teams Machine Farmworker Relationship Specialty Start Date End Date Brody, Luciano M., MD PCP - General 12/13/10 05/10/14 Javed Kulkarni MD PCP - General 03/15/00 12/12/10 Blake Rivera MD PCP - General Internal Medicine 05/11/14 03/03/15 Celina Mann, PCP - General Internal Medicine 03/04/15 02/06/16 Mercedes Han MD [address] [place] [address] PCP - General Internal Medicine 02/07/16 03/20/16 Celina Mann, DO PCP - General Internal Medicine 03/21/16 11/23/20 Mercedes Han MD [address] [place] [address] PCP - General Internal Medicine 11/24/20 01/11/21 Callum Hernandez DO [address] [place], [place] [phone] PCP - General Internal Medicine 01/12/21 03/19/21 Lopez Brennan MD [address] [place] [address] PCP - General Internal Medicine 03/20/21 10/19/21 Buddy Shaw NP [address] [place] [address] PCP - General Family Practice 10/20/21 01/04/22 [facility], Pcp [address] [place] [address] PCP - General Internal Medicine 01/05/22 11/28/22 Buddy Shaw NP [address] [place] [address] PCP - General Family Practice 11/29/22 documented as of this encounter
--- OUTSIDE RECORDS SUMMARY | 2024-10-05 08:44 | XMS_ITS | Encounter Summary ---
Author Organization [facility] Address [address] [place] [address] Care Team Providers Care Bumper Operator Name Role Phone Luciano Skinner MD Primary Care Provider Katherine Blake Bourgeois MD Primary Care Provider Unavail able Celina Mann DO Primary Care Pro vider Unavailable Mercedes Han MD Primary Care Provider + [phone] Celina Mann DO Primary Care Pro vider Unavailable Mercedes Han MD Primary Care Provider + [phone] Callum Hernandez DO Primary Care Provider Katherine Lopez Aragon MD Primary Care Provider UnaBuddy Castellanos NP Primary Care Provider Unavail able [facility], Pcp Primary Care Provider UnavailBuddy Stephen NP Primary Care Provider Unavail able Encounter Details Date Type Department Care Team Description 02/12/2011 Diamond Sander Report Medical Records [address] [place] [address] Chi Pierre Social History Tobacco Use Types [...] on filedocumented in this encounter Care Teams Bumper Operator Relationship Specialty Start Date End Date Luciano Skinner MD PCP - General 12/13/10 05/10/14 Blake Rivera MD PCP - General Internal Medicine 05/11/14 03/03/15 Celina Mann, PCP - General Internal Medicine 03/04/15 02/06/16 Mercedes Han MD [address] [place] [address] PCP - General Internal Medicine 02/07/16 03/20/16 Celina Mann, PCP - General Internal Medicine 03/21/16 11/23/20 Mercedes Han MD [address] [place] [address] PCP - General Internal Medicine 11/24/20 01/11/21 Callum Hernandez DO [address] [place] [address] PCP - General Internal Medicine 01/12/21 03/19/21 Lopez Brennan MD [address] [place] [address] PCP - General Internal Medicine 03/20/21 10/19/21 Buddy Shaw NP [address] [place] [address] PCP - General Family Practice 10/20/21 01/04/22 [facility], Pcp [address] [place] [address] PCP - General Internal Medicine 01/05/22 11/28/22 Buddy Shaw NP [address] [place] [address] PCP - General Family Practice 11/29/22 documented as of this encounter
--- OUTSIDE RECORDS SUMMARY | 2024-10-05 08:44 | XMS_ITS ---
Author Organization [facility] Address [address] [facility] [place] [address] Care Team Providers Care Mill Hand Plate Mill Name Role Phone Buddy Bolden Primary Care Provider Unav ailable Leandro Harvey Unavailable [phone] Allergies Allergen (clinical drug ingredient) Drug/Non Drug [...] Active Encounters Encounter Location Date Provider Diagnosis [facility] [address] [place] [address] 06/05/2024 Leandro Harvey Plan Of Treatment No Information Progress Notes * Nereida MCBRIDE ADOB:[birth year] (69 yo F)Acc No.[id number]:06/05/2024 Progress Note Patient:?Nereida MCBRIDE Provider:?Leandro Harvey DPM :1955???Age:69 Y???Sex:Female D ate:06/05/2024 Address:[address] [place], [place] [address] Pcp:DEB Mcclure Subjective: * Chief Complaints: * [...] Harvey DPM Date:?2024 Generated for Gale rogers/Anais/Cassie on:?10/05/2024 08:44 AM EDT
--- OUTSIDE RECORDS SUMMARY | 2024-10-05 08:45 | XMS_ITS | Encounter Summary ---
Author Organization [facility] Address [address] [place] [address] Care Team Providers Care Dry Color Mixer Name Role Phone Celina Mann DO Primary Care Pro vider Unavailable Mercedes Han MD Primary Care Provider [phone] Callum Hernandez DO Primary Care Provider Lopez Lu MD Primary Care Provider Buddy Foy NP Primary Care Provider Unavail [facility] Pcp Primary Care Provider Buddy Marlow NP Primary Care Provider Unavail able Encounter Details Date Type Department Care Team Description 11/21/2020 Federal Judicial Law Clerk Report Medical Records [address] [place] [address] Center[facility] [address] [place] [address] Social History Tobacco Use Types Packs/Day Years [...] on filedocumented in this encounter Care Teams Dry Color Mixer Relationship Specialty Start Date End Date Celina Mann DO PCP - General Internal Medicine 03/21/16 11/23/20 Mercedes Han MD [address] [place], [place] [phone] PCP - General Internal Medicine 11/24/20 01/11/21 Callum Hernandez DO [address] [place] [address] PCP - General Internal Medicine 01/12/21 03/19/21 Lopez Brennan MD [address] [place] [address] PCP - General Internal Medicine 03/20/21 10/19/21 Buddy Shaw NP [address] [place] [address] PCP - General Family Practice 10/20/21 01/04/22 [facility], Pcp [address] [place] [address] PCP - General Internal Medicine 01/05/22 11/28/22 Buddy Shaw NP [address] [place] [address] PCP - General Family Practice 11/29/22 documented as of this encounter
--- OUTSIDE RECORDS SUMMARY | 2024-10-05 08:45 | XMS_ITS | Encounter Summary ---
Author Organization [facility] Address [address] [place] [address] Care Team Providers Care Post Doctoral Fellow Name Role Phone Luciano Skinner MD Primary Care Provider Katherine Blake Bourgeois MD Primary Care Provider Unavail able Celina Mann DO Primary Care Pro vider Unavailable Mercedes Han MD Primary Care Provider [phone] Celina Mann DO Primary Care Pro vider Unavailable Mercedes Han MD Primary Care Provider + [phone] Callum Hernandez DO Primary Care Provider Katherine Lopez Aragon MD Primary Care Provider UnaBuddy Castellanos NP Primary Care Provider Unavail able [facility], Pcp Primary Care Provider UnavailBuddy Stephen NP Primary Care Provider Unavail able Encounter Details Date Type Department Care Team Description 04/02/2014 University Librarian Report Medical Records [address] [place] [address] Leandro Harvey V., DPM Social History Tobacco [...] on filedocumented in this encounter Care Teams Post Doctoral Fellow Relationship Specialty Start Date End Date Luciano Skinner MD PCP - General 12/13/10 05/10/14 Blake Rivera MD PCP - General Internal Medicine 05/11/14 03/03/15 Celina Mann, PCP - General Internal Medicine 03/04/15 02/06/16 Mercedes Han MD [address] [place] [address] PCP - General Internal Medicine 02/07/16 03/20/16 Celina Mann, PCP - General Internal Medicine 03/21/16 11/23/20 Mercedes Han MD [address] [place] [address] PCP - General Internal Medicine 11/24/20 01/11/21 Callum Hernandez DO [address] [place] [address] PCP - General Internal Medicine 01/12/21 03/19/21 Lopez Brennan MD [address] [place] [address] PCP - General Internal Medicine 03/20/21 10/19/21 Buddy Shaw NP [address] [place] [address] 20368 PCP - General Family Practice 10/20/21 01/04/22 [facility], [address] [address] PCP - General Internal Medicine 01/05/22 11/28/22 Buddy Shaw NP [address] [place] [address] PCP - General Family Practice 11/29/22 documented as of this encounter
--- OUTSIDE RECORDS SUMMARY | 2024-10-05 08:45 | XMS_ITS | Patient Health Record ---
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
--- OUTSIDE RECORDS SUMMARY | 2024-10-05 08:45 | XMS_ITS | Encounter Summary ---
Author Organization [facility] Address [address] [place] [address] Care Team Providers Care Magisterial District Judge Name Role Phone Celina Mann DO Primary Care Pro vider Unavailable Mercedes Han MD Primary Care Provider [phone] Callum Hernandez DO Primary Care Provider Lopez Lu MD Primary Care Provider Buddy Foy NP Primary Care Provider Unavail [facility] Pcp Primary Care Provider Buddy Marlow NP Primary Care Provider Unavail able Encounter Details Date Type Department Care Team Description 07/24/2018 Pt. Non Urgent Medic al Question Adult Medicine [address] [address] Celina Mann DO Social History Tobacco Use [...] on filedocumented in this encounter Care Teams Magisterial District Judge Relationship Specialty Start Date End Date Celina Mann DO PCP - General Internal Medicine 03/21/16 11/23/20 Mercedes Han MD [address] [place] [address] PCP - General Internal Medicine 11/24/20 01/11/21 Callum Hernandez DO [address] [place], [place] [address] PCP - General Internal Medicine 01/12/21 03/19/21 Lopez Brennan MD [address] [place], [place] [address] PCP - General Internal Medicine 03/20/21 10/19/21 Buddy Shaw NP [address] [place] [address] PCP - General Family Practice 10/20/21 01/04/22 [facility], [place] [address] PCP - General Internal Medicine 01/05/22 11/28/22 Buddy Shaw NP [address] [place] [address] PCP - General Family Practice 11/29/22 documented as of this encounter
--- OUTSIDE RECORDS SUMMARY | 2024-10-05 08:45 | XMS_ITS | Patient Health Record ---
Author Organization [facility] Address [address] [facility] [place] [address] Care Team Providers Care Automobile Club Information Clerk Name Role Phone Buddy Bolden Primary Care Provider Unav ailable Leandro Harvey Unavailable [phone] Allergies Allergen (clinical drug ingredient) Drug/Non Drug [...] W/U Status Risk Notes Problem Tinea unguium (306444145) Tinea unguium (B35.1) Active confirmed Response to treatment,Un resolved Problem Plantar wart (50751047) Plantar wart (B07.0) Active confirmed Vital Signs Height 5ft4in in 03/03/2024 Weight 208 lbs 03/03/2024 BMI 35.7 kg/m2 03/03/2024 Procedures Procedure Date Ordered Date Performed Result Body Sit e 26127-Lzjw Destruction, 1-14 03/03/2024 N/A Encounters Encounter Location Date Provider Diagnosis [facility] [address] 03/03/2024 Leandro Harvey Tinea unguium B35.1 ; Pain in right toe(s) M79.674 ; Pain in left toe(s) M79.675 ; Plantar wart B07.0 and Left foot pain M79.672 [facility] [address] 06/05/2024 Leandro Harvey Assessments Encounter Date Diagnosis [...] Treatment Pending Test Test Name Order Date 06103-Zrai Destruction, 1-14 03/03/2024 99183- Removal of Foreign Body, Subcut 1 50,U5398-LIC TENDON SHEATH/LIGAMENT 1 50,N3607-ZUM TENDON SHEATH/LIGAMENT 0 02/15/201493072,E2043-SHD TENDON SHEATH/LIGAMENT 0 02/23/201408739,L6538-LVK TENDON SHEATH/LIGAMENT 1 Insurance Providers Payer Name Payer Address Payer Phone Subscriber Number Group Number Insured Name Patient Relationship to Insured Coverage Start Date Coverage End Date Medicare National [employer] [address] [place] [address] [id number] Rae Nereida Self - patient is the insured [employer] [address] [place] [address] [id number] Nereida Mcbride Self - patient is the insured Medical (General) History Medical History History ICD Code Anxiety Arthritis Back,Hip,and Knee pain sinusitis Measles Mumps Chicken pox Joint implants/screws CAD (Cholesterol) Depression Surgical History Surgery Date(Month/Year) rods in both shoulders Left SQ Plantar Fibroma/S.T. Mass (Unspe c) 09/2014 rotator cuff 2006 colonoscopy
--- OUTSIDE RECORDS SUMMARY | 2024-10-05 08:45 | XMS_ITS | Encounter Summary ---
Author Organization [facility] Address [address] [place] [address] Care Team Providers Care Weeder Name Role Phone Celina Mann DO Primary Care Pro vider Unavailable Mercedes Han MD Primary Care Provider [phone] Callum Hernandez DO Primary Care Provider Lopez Lu MD Primary Care Provider Buddy Foy NP Primary Care Provider Unavail [facility] Pcp Primary Care Provider Buddy Marlow NP Primary Care Provider Unavail able Encounter Details Date Type Department Care Team Description 04/28/2018 Lock Master Report Medical Records [address] [place] [address] Tristen Díaz MD Social History Tobacco Use [...] on filedocumented in this encounter Care Teams Weeder Relationship Specialty Start Date End Date Celina Mann DO PCP - General Internal Medicine 03/21/16 11/23/20 Mercedes Han MD [address] [place] [address] PCP - General Internal Medicine 11/24/20 01/11/21 Callum Hernandez DO [address] [place] [address] PCP - General Internal Medicine 01/12/21 03/19/21 Lopez Brennan MD [address] [place], [place] [phone] PCP - General Internal Medicine 03/20/21 10/19/21 Buddy Shaw NP [address] [place] [address] PCP - General Family Practice 10/20/21 01/04/22 [facility], [place] [address]28[address] PCP - General Internal Medicine 01/05/22 11/28/22 Buddy Shaw NP [address] [place] [address] PCP - General Family Practice 11/29/22 documented as of this encounter
--- OUTSIDE RECORDS SUMMARY | 2024-10-05 08:45 | XMS_ITS | Encounter Summary ---
Author Organization [facility] Address [address] [place] [address] Care Team Providers Care Thermal Cutter Helper Name Role Phone Luciano Skinner MD Primary Care Provider Katherine Blake Bourgeois MD Primary Care Provider Unavail able Celina Mann DO Primary Care Pro vider Unavailable Mercedes Han MD Primary Care Provider [phone] Celina Mann DO Primary Care Pro vider Unavailable Mercedes Han MD Primary Care Provider + [phone] Callum Hernandez DO Primary Care Provider Katherine Lopez Aragon MD Primary Care Provider UnaBuddy Castellanos NP Primary Care Provider Unavail able [facility] Pcp Primary Care Provider UnavailBuddy Stephen NP Primary Care Provider Unavail able Encounter Details Date Type Department Care Team Description 12/21/2011 Pt. Non Urgent Medical Question Adult Medicine [address] [address] Luciano Skinner MD Social History Tobacco Use [...] on filedocumented in this encounter Care Teams Thermal Cutter Helper Relationship Specialty Start Date End Date Luciano Skinner MD PCP - General 12/13/10 05/10/14 Blake Rivera MD PCP - General Internal Medicine 05/11/14 03/03/15 Celina Mann DO PCP - General Internal Medicine 03/04/15 02/06/16 Mercedes Han MD [address] [place] [address] PCP - General Internal Medicine 02/07/16 03/20/16 Celina Mann DO PCP - General Internal Medicine 03/21/16 11/23/20 Mercedes Han MD [address] [place] [address] PCP - General Internal Medicine 11/24/20 01/11/21 Callum Hernandez, [address] [place] [address] PCP - General Internal Medicine 01/12/21 03/19/21 Lopez Brennan MD [address] [place] [address] PCP - General Internal Medicine 03/20/21 10/19/21 Buddy Shaw NP [address] [place] [address] PCP - General Family Practice 10/20/21 01/04/22 [facility], [address] [address] PCP - General Internal Medicine 01/05/22 11/28/22 Buddy Shaw NP [address] [place] [address] PCP - General Family Practice 11/29/22 documented as of this encounter
--- OUTSIDE RECORDS SUMMARY | 2024-10-05 08:45 | XMS_ITS | Encounter Summary ---
Author Organization [employer] [facility] Address [address] [place] [address] Care Team Providers Care Edgerman Name Role Phone Mercedes Han MD Primary Care Provider [phone] Celina Mann DO Primary Care Pro vider Unavailable Mercedes Han MD Primary Care Provider [phone] Callum Hernandez DO Primary Care Provider Lopez Lu MD Primary Care Provider Buddy Foy NP Primary Care Provider Unavail [facility] Primary Care Provider Buddy Marlow NP Primary Care Provider Unavail able Encounter Details Date Type Department Care Team Description 03/07/2016 Release of Information Medical Records [address] [place] [address] Abstract, Provider Social History Tobacco Use Types [...] on filedocumented in this encounter Care Teams Edgerman Relationship Specialty Start Date End Date Mercedes Han MD [address] [place], [place] [id number] PCP - General Internal Medicine 02/07/16 03/20/16 Celina Mann, DO [address] [place] [address] PCP - General Internal Medicine 03/21/16 11/23/20 Mercedes Han MD [address] [place] [address] PCP - General Internal Medicine 11/24/20 01/11/21 Callum Hernandez, [address] [place], [place] [address] PCP - General Internal Medicine 01/12/21 03/19/21 Lopez Brennan MD [address] [place] [address] PCP - General Internal Medicine 03/20/21 10/19/21 Buddy Shaw NP [address] [place] [address] PCP - General Family Practice 10/20/21 01/04/22 [facility], Pcp [address] [place] [address] PCP - General Internal Medicine 01/05/22 11/28/22 Buddy Shaw NP [address] [place] [address] PCP - General Family Practice 11/29/22 documented as of this encounter
--- OUTSIDE RECORDS SUMMARY | 2024-10-05 08:45 | XMS_ITS | Encounter Summary ---
Author Organization [facility] Address [address] [place] [address] Care Team Providers Care Lace Weaver Name Role Phone Luciano Skinner MD Primary Care Provider Katherine Blake Bourgeois MD Primary Care Provider Unavail able Celina Mann DO Primary Care Pro vider Unavailable Mercedes Han MD Primary Care Provider [phone] Celina Mann DO Primary Care Pro vider Unavailable Mercedes Han MD Primary Care Provider + [phone] Callum Hernandez DO Primary Care Provider Katherine Lopez Aragon MD Primary Care Provider UnaBuddy Castellanos NP Primary Care Provider Unavail able [facility] Pcp Primary Care Provider UnavailBuddy Stephen NP Primary Care Provider Unavail able Encounter Details Date Type Department Care Team Description 12/19/2011 Release of Information Medical Records [address] [place] [address] Abstract, Provider Social History Tobacco Use Types [...] on filedocumented in this encounter Care Teams Lace Weaver Relationship Specialty Start Date End Date Luciano Skinner MD PCP - General 12/13/10 05/10/14 Blake Rivera MD PCP - General Internal Medicine 05/11/14 03/03/15 Celina Mann, PCP - General Internal Medicine 03/04/15 02/06/16 Mercedes Han MD [address] [place] [address] PCP - General Internal Medicine 02/07/16 03/20/16 Celina Mann, PCP - General Internal Medicine 03/21/16 11/23/20 Mercedes Han MD [address] [place] [address] PCP - General Internal Medicine 11/24/20 01/11/21 Callum Hernandez DO [address] [place] [address] PCP - General Internal Medicine 01/12/21 03/19/21 Lopez Brennan MD [address] [place] [address] PCP - General Internal Medicine 03/20/21 10/19/21 Buddy Shaw NP [address] [place] [address] PCP - General Family Practice 10/20/21 01/04/22 [facility] Pcp [address] [place] [address] PCP - General Internal Medicine 01/05/22 11/28/22 Buddy Shaw NP [address] [place] [address] PCP - General Family Practice 11/29/22 documented as of this encounter
--- OUTSIDE RECORDS SUMMARY | 2024-10-05 08:45 | XMS_ITS | Encounter Summary ---
Author Organization [facility] Address [address] [place] [address] Care Team Providers Care Crop Grain Or Livestock Farmer Name Role Phone Celina Mann DO Primary Care Pro vider Unavailable Mercedes Han MD Primary Care Provider [phone] Callum Hernandez DO Primary Care Provider Lopez Lu MD Primary Care Provider Buddy Foy NP Primary Care Provider Unavail able [facility] Pcp Primary Care Provider Buddy Marlow NP Primary Care Provider Unavail able Encounter Details Date Type Department Care Team Description 05/08/2016 Pt. Non Urgent Medic al Question Physiatry - [place] [address] [place] [address] Sammy Mcintyre DO Social History Tobacco Use [...] on filedocumented in this encounter Care Teams Crop Grain Or Livestock Farmer Relationship Specialty Start Date End Date Celina Mann DO PCP - General Internal Medicine 03/21/16 11/23/20 Mercedes Han MD [address] [place] [address] PCP - General Internal Medicine 11/24/20 01/11/21 Callum Hernandez DO [address] [place] [address] PCP - General Internal Medicine 01/12/21 03/19/21 Lopez Brennan MD [address] [place] [address] PCP - General Internal Medicine 03/20/21 10/19/21 Buddy Shaw NP [address] [place] [address] PCP - General Family Practice 10/20/21 01/04/[address] [address] PCP - General Internal Medicine 01/05/22 11/28/22 Buddy Shaw NP [address] [place] [address] PCP - General Family Practice 11/29/22 documented as of this encounter
--- OUTSIDE RECORDS SUMMARY | 2024-10-05 08:45 | XMS_ITS | Encounter Summary ---
Author Organization [facility] Address [address] [place] [address] Care Team Providers Care Brake Repairer Air Name Role Phone Luciano Skinner MD Primary Care Provider Katherine Blake Bourgeois MD Primary Care Provider Unavail able Celina Mann DO Primary Care Pro vider Unavailable Mercedes Han MD Primary Care Provider + [phone] Celina Mann DO Primary Care Pro vider Unavailable Mercedes Han MD Primary Care Provider + [phone] Callum Hernandez DO Primary Care Provider Katherine Lopez Aargon MD Primary Care Provider UnaBuddy Castellanos NP Primary Care Provider Unavail able [facility], Pcp Primary Care Provider UnavailBuddy Stephen NP Primary Care Provider Unavail able Encounter Details Date Type Department Care Team Description 06/07/2012 Pt. Non Urgent Medical Question Physiatry - [place] [address] [place] [address] Sammy Mcintyre DO Lumbar radiculitis (Primary Dx) [...] unspecified documented in this encounter Care Teams Brake Repairer Air Relationship Specialty Start Date End Date Luciano Skinner MD PCP - General 12/13/10 05/10/14 Blake Rivera MD PCP - General Internal Medicine 05/11/14 03/03/15 Celina Mann DO PCP - General Internal Medicine 03/04/15 02/06/16 Mercedes Han MD [address] [place] [address] PCP - General Internal Medicine 02/07/16 03/20/16 Celina Mann DO PCP - General Internal Medicine 03/21/16 11/23/20 Mercedes Han MD [address] [place] [address] PCP - General Internal Medicine 11/24/20 01/11/21 Callum Hernandez DO [address] [place] [address] PCP - General Internal Medicine 01/12/21 03/19/21 Lopez Brennan MD [address] [place] [address] PCP - General Internal Medicine 03/20/21 10/19/21 Buddy Shaw NP [address] [place] [address] PCP - General Family Practice 10/20/21 01/04/22 [facility], Pcp [address] [place] [address] PCP - General Internal Medicine 01/05/22 11/28/22 Buddy Shaw NP [address] [place] [address] PCP - General Family Practice 11/29/22 documented as of this encounter
--- OUTSIDE RECORDS SUMMARY | 2024-10-05 08:45 | XMS_ITS | Encounter Summary ---
Author Organization [employer] [facility] Address [address] [place] [address] Care Team Providers Care Customs Appraiser Name Role Phone Blake Rivera MD Primary Care Provider Unavail able Celina Mann DO Primary Care Pro vider Unavailable Mercedes Han MD Primary Care Provider [phone] Celina Mann DO Primary Care Pro vider Unavailable Mercedes Han MD Primary Care Provider [phone] Callum Hernandez DO Primary Care Provider Lopez Lu MD Primary Care Provider Buddy Foy NP Primary Care Provider Unavail [facility] Pcp Primary Care Provider UnavailBuddy Stephen NP Primary Care Provider Unavail able Encounter Details Date Type Department Care Team Description 07/21/2014 RADIOLOGICAL EQUIPMENT SPECIALIST/[facility] Report Medical Records [address] [place] [address] Abstract, Provider Social History Tobacco Use Types [...] on filedocumented in this encounter Care Teams Customs Appraiser Relationship Specialty Start Date End Date Blake Rivera MD PCP - General Internal Medicine 05/11/14 03/03/15 Celina Mann DO PCP - General Internal Medicine 03/04/15 02/06/16 Mercedes Han MD [address] [place] [address] PCP - General Internal Medicine 02/07/16 03/20/16 Celina Mann DO PCP - General Internal Medicine 03/21/16 11/23/20 Mercedes Han MD [address] [place] [address] PCP - General Internal Medicine 11/24/20 01/11/21 Callum Hernandez DO [address] [place] [address] PCP - General Internal Medicine 01/12/21 03/19/21 Lopez Brennan MD [address] [place] [address] PCP - General Internal Medicine 03/20/21 10/19/21 Buddy Shaw NP [address] [place] [address] PCP - General Family Practice 10/20/21 01/04/22 [facility], Pcp [address] [place] [address] PCP - General Internal Medicine 01/05/22 11/28/22 Buddy Shaw NP [address] [place] [address] PCP - General Family Practice 11/29/22 documented as of this encounter
--- OUTSIDE RECORDS SUMMARY | 2024-10-05 08:45 | XMS_ITS | Encounter Summary ---
Author Organization [employer] [facility] Address [address] [place] [address] Care Team Providers Care Milk Route Supervisor Name Role Phone Celina Mann DO Primary Care Pro vider Unavailable Mercedes Han MD Primary Care Provider [phone] Callum Hernandez DO Primary Care Provider Lopez Lu MD Primary Care Provider Buddy Foy NP Primary Care Provider Unavail [facility] Pcp Primary Care Provider Buddy Marlow NP Primary Care Provider Unavail able Encounter Details Date Type Department Care Team Description 08/23/2020 Orders Only Adult Medicine [address] [address] Celina Mann DO Social History Tobacco Use [...] on filedocumented in this encounter Care Teams Milk Route Supervisor Relationship Specialty Start Date End Date Celina Mann DO PCP - General Internal Medicine 03/21/16 11/23/20 Mercedes Han MD [address] [place], [place] [address] PCP - General Internal Medicine 11/24/20 01/11/21 Callum Hernandez DO [address] [place], [place] [address] PCP - General Internal Medicine 01/12/21 03/19/21 Lopez Brennan MD [address] [place] [address] PCP - General Internal Medicine 03/20/21 10/19/21 Buddy Shaw NP [address] [place] [address] PCP - General Family Practice 10/20/21 01/04/[address] [address] PCP - General Internal Medicine 01/05/22 11/28/22 Buddy Shaw NP [address] [place] [address] PCP - General Family Practice 11/29/22 documented as of this encounter
--- OUTSIDE RECORDS SUMMARY | 2024-10-05 08:45 | XMS_ITS | Encounter Summary ---
Author Organization [facility] Address [address] [place] [address] Care Team Providers Care Conciliator Name Role Phone Celina Mann DO Primary Care Pro vider Unavailable Mercedes Han MD Primary Care Provider [phone] Callum Hernandez DO Primary Care Provider Lopez Lu MD Primary Care Provider Buddy Foy NP Primary Care Provider Unavail [facility] Pcp Primary Care Provider Buddy Marlow NP Primary Care Provider Unavail able Encounter Details Date Type Department Care Team Description 08/25/2018 Release of Information Medical Records [address] [place] [address] Abstract, Provider Social History Tobacco Use Types [...] on filedocumented in this encounter Care Teams Conciliator Relationship Specialty Start Date End Date Celina Mann DO PCP - General Internal Medicine 03/21/16 11/23/20 eMrcedes Han MD [address] [place] [address] PCP - General Internal Medicine 11/24/20 01/11/21 Callum Hernandez DO [address] [place] [address] PCP - General Internal Medicine 01/12/21 03/19/21 Lopez Brennan MD [address] [place] [address] PCP - General Internal Medicine 03/20/21 10/19/21 Buddy Shaw NP [address] [place] [address] PCP - General Family Practice 10/20/21 01/04/22 [facility], Pcp [address] [place] [address] PCP - General Internal Medicine 01/05/22 11/28/22 Buddy Shaw NP [address] [place], [place] [address] PCP - General Family Practice 11/29/22 documented as of this encounter
--- OUTSIDE RECORDS SUMMARY | 2024-10-05 08:45 | XMS_ITS | Encounter Summary ---
[facility] Organization [facility] Address [address] [place] [address] Care Team Providers Care Tail Board Worker Name Role Phone Celina Mann DO Primary Care Pro vider Unavailable Mercedes Han MD Primary Care Provider [phone] Callum Hernandez DO Primary Care Provider Lopez Lu MD Primary Care Provider Buddy Foy NP Primary Care Provider Unavail able [facility], Pcp Primary Care Provider Buddy Marlow NP Primary Care Provider Unavail able Reason for Referral * EXTERNAL (Routine) - Authorized/Booked Specialty Diagnoses / Procedures Referred By Kailey dominguez Referred To Contact Neurology Procedures REFERRAL TO NEUROLOGY Celina Mann DO [address] [place] [address] Tristen Díaz MD Referral ID Status Reason Start Date Expiration Date V isits Requested Visits Authorized SEE NOTE Authorized/B ooked 09/12/2016 12/19/2016 1 1 Encounter Details Date Type Department Care Team Description 09/12/2016 Orders Only Adult Medicine [address] [id number] Celina Mann DO Social History Tobacco Use [...] on filedocumented in this encounter Care Teams Tail Board Worker Relationship Specialty Start Date End Date Celina Mann DO PCP - General Internal Medicine 03/21/16 11/23/20 Mercedes Han MD [address] [place] [address] PCP - General Internal Medicine 11/24/20 01/11/21 Callum Hernandez DO [address] [place] [address] PCP - General Internal Medicine 01/12/21 03/19/21 Lopez Brennan MD [address] [place] [address] PCP - General Internal Medicine 03/20/21 10/19/21 Buddy Shaw NP [address] [place] [address] PCP - General Family Practice 10/20/21 01/04/22 [place] [address] PCP - General Internal Medicine 01/05/22 11/28/22 Buddy Shaw NP [address] [place] [address] PCP - General Family Practice 11/29/22 documented as of this encounter
--- OUTSIDE RECORDS SUMMARY | 2024-10-05 08:45 | XMS_ITS | Encounter Summary ---
Author Organization [facility] Address [address] [place] [address] Care Team Providers Care Snack Steward Name Role Phone Celina Mann DO Primary Care Pro vider Unavailable Mercedes Han MD Primary Care Provider [phone] Callum Hernandez DO Primary Care Provider Lopez Lu MD Primary Care Provider Buddy Foy NP Primary Care Provider Unavail able [facility], Pcp Primary Care Provider Buddy Marlow NP Primary Care Provider Unavail able Encounter Details Date Type Department Care Team Description 08/19/2020 Pt. Non Urgent Medic al Question Adult Medicine [address] [address] Celina Mann DO Social History Tobacco Use [...] on filedocumented in this encounter Care Teams Snack Steward Relationship Specialty Start Date End Date Celina Mann DO PCP - General Internal Medicine 03/21/16 11/23/20 Mercedes Han MD [address] [place] [address] PCP - General Internal Medicine 11/24/20 01/11/21 Callum Hernandez DO [address] [place] [address] PCP - General Internal Medicine 01/12/21 03/19/21 Lopez Brennan MD [address] [place] [address] PCP - General Internal Medicine 03/20/21 10/19/21 Buddy Shaw NP [address] [place] [address] PCP - General Family Practice 10/20/21 01/04/22 [facility], Pcp [address] [place] [address] PCP - General Internal Medicine 01/05/22 11/28/22 Buddy Shaw NP [address] [place] [address] PCP - General Family Practice 11/29/22 documented as of this encounter
--- OUTSIDE RECORDS SUMMARY | 2024-10-05 08:45 | XMS_ITS | Encounter Summary ---
[facility] Address [address] [place] [address] Care Team Providers Care Capture Manager Name Role Phone Celina Mann DO Primary Care Pro vider Unavailable Mercedes Han MD Primary Care Provider [phone] Callum Hernandez DO Primary Care Provider Lopez Lu MD Primary Care Provider Buddy Foy NP Primary Care Provider Unavail able [facility], Pcp Primary Care Provider UnavailBuddy Stephen NP Primary Care Provider Unavail able Reason for Visit * Reason Onset Date Comments Mac Developer Feedback 07/28/2018 PVC Encounter Details Date Type Department Care Team Description 07/28/2018 Telephone Adult Medicine [address] [address] Celina Mann DO Mac Developer Feedback (PVC) Social History Tobacco Use Types [...] referral required per patient's insurance. Order faxed [facility] [phone] and office notes can be pulled from the office by Epic Link [facility] Cardiology [phone] Notification letter mailed to patient, PVC will contact patient with appointment information documented in this encounter Plan of Treatment Not on file documented as of this encounter Visit Diagnoses Not on filedocumented in this encounter Care Teams Capture Manager Relationship Specialty Start Date End Date Celina Mann DO PCP - General Internal Medicine 03/21/16 11/23/20 Mercedes Han MD [address] [place], [place] [phone] PCP - General Internal Medicine 11/24/20 01/11/21 Callum Hernandez DO [address] [place] [address] PCP - General Internal Medicine 01/12/21 03/19/21 Lopez Brennan MD [address] [place] [address] PCP - General Internal Medicine 03/20/21 10/19/21 Buddy Shaw NP [address] [place] [address] PCP - General Family Practice 10/20/21 01/04/[address] [address] PCP - General Internal Medicine 01/05/22 11/28/22 Buddy Shaw NP [address] [place] [address] PCP - General Family Practice 11/29/22 documented as of this encounter
--- OUTSIDE RECORDS SUMMARY | 2024-10-05 08:45 | XMS_ITS | Encounter Summary ---
Author Organization [facility] Address [address] [place] [address] Care Team Providers Care Floor Cleaner Name Role Phone Luciano Skinner MD Primary Care Provider Katherine Javed Lindsay MD Primary Care Provider UnaBlake Traore MD Primary Care Provider Unavail able Celina Mann DO Primary Care Pro vider Unavailable Mercedes Han MD Primary Care Provider [phone] Celina Mann DO Primary Care Pro vider Unavailable Mercedes Han MD Primary Care Provider [phone] Callum Hernandez DO Primary Care Provider Lopez Lu MD Primary Care Provider Buddy Foy NP Primary Care Provider Unavail able [facility], [facility] Primary Care Provider UnavailBuddy Stephen NP Primary Care Provider Unavail able Encounter Details Date Type Department Care Team Description 12/12/2005 Hospital Medical Records [address] [place] [address] Olvin Joseph MD Social History Tobacco Use [...] filedocumented in this encounter Care Teams Floor Cleaner Relationship Specialty Start Date End Date Luciano Skinner MD PCP - General 12/13/10 05/10/14 Javed Kulkarni MD PCP - General 03/15/00 12/12/10 Blake Rivera MD PCP - General Internal Medicine 05/11/14 03/03/15 Celina Mann, PCP - General Internal Medicine 03/04/15 02/06/16 Mercedes Han MD [address] [place] [address] PCP - General Internal Medicine 02/07/16 03/20/16 Celina Mann, PCP - General Internal Medicine 03/21/16 11/23/20 Mercedes Han MD [address] [place] [address] PCP - General Internal Medicine 11/24/20 01/11/21 Callum Hernandez, [address] [place] [address] PCP - General Internal Medicine 01/12/21 03/19/21 Lopez Brennan MD [address] [place] [address] PCP - General Internal Medicine 03/20/21 10/19/21 Buddy Shaw NP [address] [place] [address] PCP - General Family Practice 10/20/21 01/04/22 [facility], Pcp [address] [place] [address] PCP - General Internal Medicine 01/05/22 11/28/22 Buddy Shaw NP [address] [place] [address] PCP - General Family Practice 11/29/22 documented as of this encounter
--- OUTSIDE RECORDS SUMMARY | 2024-10-05 08:46 | XMS_ITS | Encounter Summary ---
Author Organization [facility] Address [address] [place] [address] Care Team Providers Care Driver'S Education Instructor Name Role Phone Luciano Skinner MD Primary Care Provider Katherine Javed Lindsay MD Primary Care Provider UnaBlake Traore MD Primary Care Provider Unavail able Celina Mann DO Primary Care Pro vider Unavailable Mercedes Han MD Primary Care Provider [phone] Celina Mann DO Primary Care Pro vider Unavailable Mercedes Han MD Primary Care Provider [phone] Callum Hernandez DO Primary Care Provider Lopez Lu MD Primary Care Provider Buddy Foy NP Primary Care Provider Unavail able [facility], [facility] Primary Care Provider UnavailBuddy Stephen NP Primary Care Provider Unavail able Encounter Details Date Type Department Care Team Description 08/03/2008 Hospital Medical Records [address] [place] [address] Chi Pierre Social History Tobacco Use Types [...] on filedocumented in this encounter Care Teams Driver'S Education Instructor Relationship Specialty Start Date End Date Luciano Skinner MD PCP - General 12/13/10 05/10/14 Javed Kulkarni MD PCP - General 03/15/00 12/12/10 Blake Rivera MD PCP - General Internal Medicine 05/11/14 03/03/15 Celina Mann, PCP - General Internal Medicine 03/04/15 02/06/16 Mercedes Han MD [address] [place] [address] PCP - General Internal Medicine 02/07/16 03/20/16 Celina Mann, PCP - General Internal Medicine 03/21/16 11/23/20 Mercedes Han MD [address] [place] [address] PCP - General Internal Medicine 11/24/20 01/11/21 Callum Hernandez, [address] [place] [address] PCP - General Internal Medicine 01/12/21 03/19/21 Lopez Brennan MD [address] [place] [address] PCP - General Internal Medicine 03/20/21 10/19/21 Buddy Shaw NP [address] [place] [address] PCP - General Family Practice 10/20/21 01/04/22 [facility], Pcp [address] [place] [address] PCP - General Internal Medicine 01/05/22 11/28/22 Buddy Shaw NP [address] [place] [address] PCP - General Family Practice 11/29/22 documented as of this encounter
--- OUTSIDE RECORDS SUMMARY | 2024-10-05 08:46 | XMS_ITS | Encounter Summary ---
[facility] Address [address] [place] [address] Care Team Providers Care Washing Machine Loader And Puller Name Role Phone Luciano Skinner MD Primary Care Provider Katherine Blake Bourgeois MD Primary Care Provider Unavail able Celina Mann DO Primary Care Pro vider Unavailable Mercedes Han MD Primary Care Provider [phone] Celina Mann DO Primary Care Pro vider Unavailable Mercedes Han MD Primary Care Provider + [phone] Callum Hernandez DO Primary Care Provider Katherine Lopez Aragon MD Primary Care Provider UnaBuddy Castellanos NP Primary Care Provider Unavail able [facility], Pcp Primary Care Provider UnavailBuddy Stephen NP Primary Care Provider Unavail able Encounter Details Date Type Department Care Team Description 08/27/2012 Hospital Medical Records [address] [place] [address] Pamela Shahid DO Social History Tobacco Use [...] on filedocumented in this encounter Care Teams Washing Machine Loader And Puller Relationship Specialty Start Date End Date Luciano Skinner MD PCP - General 12/13/10 05/10/14 Blake Rivera MD PCP - General Internal Medicine 05/11/14 03/03/15 Celina Mann, PCP - General Internal Medicine 03/04/15 02/06/16 Mercedes Han MD [address] [place] [address] PCP - General Internal Medicine 02/07/16 03/20/16 Celina aMnn, PCP - General Internal Medicine 03/21/16 11/23/20 Mercedes Han MD [address] [place] [address] PCP - General Internal Medicine 11/24/20 01/11/21 Callum Hernandez DO [address] [place] [address] PCP - General Internal Medicine 01/12/21 03/19/21 Lopez Brennan MD [address] [place] [address] PCP - General Internal Medicine 03/20/21 10/19/21 Buddy Shaw NP [address] [place] [address] PCP - General Family Practice 10/20/21 01/04/22 [facility], [address] [address] PCP - General Internal Medicine 01/05/22 11/28/22 Buddy Shaw NP [address] [place] [address] PCP - General Family Practice 11/29/22 documented as of this encounter
--- OUTSIDE RECORDS SUMMARY | 2024-10-05 08:46 | XMS_ITS | Clinical Summary ---
Author Organization [facility] Address [address] [place] [address] Care Team Providers Care Security Installation Sales Technician Name Role Phone Buddy Shaw NP Primary [...] Recently Relevant to Health Maintenance Care Teams Security Installation Sales Technician Relationship Specialty Start Date End Date Buddy Shaw, BOTTLE CAPPING MACHINE OPERATOR [address] Presley PCP - General 11/29/22
--- OUTSIDE RECORDS SUMMARY | 2024-10-05 08:46 | XMS_ITS | Encounter Summary ---
Author Organization [facility] Address [address] [place] [address] Care Team Providers Care Press Box Custodian Name Role Phone Luciano Skinner MD Primary Care Provider Katherine Blake Bourgeois MD Primary Care Provider Unavail able Celina Mann DO Primary Care Pro vider Unavailable Mercedes Han MD Primary Care Provider + [phone] Celina Mann DO Primary Care Pro vider Unavailable Mercdees Han MD Primary Care Provider + [phone] Callum Hernandez DO Primary Care Provider Katherine Lopez Aragon MD Primary Care Provider UnaBuddy Castellanos NP Primary Care Provider Unavail able [facility], Pcp Primary Care Provider UnavailBuddy Stephen NP Primary Care Provider Unavail able Encounter Details Date Type Department Care Team Description 08/26/2012 Hospital Medical Records [address] [place] [address] Pamela Shahid DO Social History Tobacco Use [...] on filedocumented in this encounter Care Teams Press Box Custodian Relationship Specialty Start Date End Date Luciano Skinner MD PCP - General 12/13/10 05/10/14 Blake Rivera MD PCP - General Internal Medicine 05/11/14 03/03/15 Celina Mann, PCP - General Internal Medicine 03/04/15 02/06/16 Mercedes Han MD [address] [place] [address] PCP - General Internal Medicine 02/07/16 03/20/16 Celina Mann, PCP - General Internal Medicine 03/21/16 11/23/20 Mercedes Han MD [address] [place] [address] PCP - General Internal Medicine 11/24/20 01/11/21 Callum Hernandez DO [address] [place] [address] PCP - General Internal Medicine 01/12/21 03/19/21 Lopez Brennan MD [address] [place] [address] PCP - General Internal Medicine 03/20/21 10/19/21 Buddy Shaw NP [address] [place] [address] PCP - General Family Practice 10/20/21 01/04/22 [facility], [address] [address] PCP - General Internal Medicine 01/05/22 11/28/22 Buddy Shaw NP [address] [place] [address] PCP - General Family Practice 11/29/22 documented as of this encounter
--- OUTSIDE RECORDS SUMMARY | 2024-10-05 08:46 | XMS_ITS | Encounter Summary ---
Author [facility] Address [address] [place] [address] Care Team Providers Care Souvenir Assembler Name Role Phone Luciano Skinner MD Primary Care Provider Katherine Blake Bourgeois MD Primary Care Provider Unavail able Celina Mann DO Primary Care Pro vider Unavailable Mercedes Han MD Primary Care Provider + [phone] Celina Mann DO Primary Care Pro vider Unavailable Mercedes Han MD Primary Care Provider + [phone] Callum Hernandez DO Primary Care Provider Katherine Lopez Aragon MD Primary Care Provider UnaBuddy Castellanos NP Primary Care Provider Unavail able [facility], Pcp Primary Care Provider UnavailBuddy Stephen NP Primary Care Provider Unavail able Encounter Details Date Type Department Care Team Description 11/14/2012 Clinical Sales Consultant Report Medical Records [address] [place] [address] Jesús Martinez Social History Tobacco Use Types Packs/Day Years Used Date Smoking Tobacco: Every Day Cigarettes 25 Smokeless Tobacco: Never Comments:1 cig per day Alcohol Use Standard Drinks/Week [...] on filedocumented in this encounter Care Teams Souvenir Assembler Relationship Specialty Start Date End Date Luciano Skinner MD PCP - General 12/13/10 05/10/14 Blake Rivera MD PCP - General Internal Medicine 05/11/14 03/03/15 Celina Mann, DO PCP - General Internal Medicine 03/04/15 02/06/16 Mercedes Han MD [address] [place] [address] PCP - General Internal Medicine 02/07/16 03/20/16 Celina Mann, PCP - General Internal Medicine 03/21/16 11/23/20 Mercedes Han MD [address] [place] [address] 19759 PCP - General Internal Medicine 11/24/20 01/11/21 Callum Hernandez DO [address] [place] [address]606 PCP - General Internal Medicine 01/12/21 03/19/21 Lopez Brennan MD [address] [place] [address]277 PCP - General Internal Medicine 03/20/21 10/19/21 Buddy Shaw NP [address] [place] [address] PCP - General Family Practice 10/20/21 01/04/22 [facility], Pcp [address] [place] [address] PCP - General Internal Medicine 01/05/22 11/28/22 Buddy Shaw NP [address] [place] [address] PCP - General Family Practice 11/29/22 documented as of this encounter
--- OUTSIDE RECORDS SUMMARY | 2024-10-05 08:46 | XMS_ITS | Encounter Summary ---
Author Organization [facility] Address [address] [place] [address] Care Team Providers Care Antique Furniture Restorer Name Role Phone Celina Mann DO Primary Care Pro vider Unavailable Mercedes Han MD Primary Care Provider [phone] Callum Hernandez DO Primary Care Provider Lopez Lu MD Primary Care Provider Buddy Foy NP Primary Care Provider Unavail [facility] Pcp Primary Care Provider Buddy Marlow NP Primary Care Provider Unavail able Encounter Details Date Type Department Care Team Description 11/02/2016 Uranium Processing Supervisor Report Medical Records [address] [place] [address] Tristen Díaz MD Social History Tobacco Use [...] on filedocumented in this encounter Care Teams Antique Furniture Restorer Relationship Specialty Start Date End Date Celina Mann DO PCP - General Internal Medicine 03/21/16 11/23/20 Mercedes Han MD [address] [place] [address] PCP - General Internal Medicine 11/24/20 01/11/21 Callum Hernandez DO [address] [place] [address] PCP - General Internal Medicine 01/12/21 03/19/21 Lopez Brennan MD [address] [place] [address] PCP - General Internal Medicine 03/20/21 10/19/21 Buddy Shaw NP [address] [place] [address] PCP - General Family Practice 10/20/21 01/04/22 [facility], Pcp [address] [place] [address] PCP - General Internal Medicine 01/05/22 11/28/22 Buddy Shaw NP [address] [place], [place] [phone] PCP - General Family Practice 11/29/22 documented as of this encounter
--- OUTSIDE RECORDS SUMMARY | 2024-10-05 08:46 | XMS_ITS | Encounter Summary ---
Author Organization [facility] Address [address] [place] [address] Care Team Providers Care Medical Equipment Sales Name Role Phone Luciano Skinner MD Primary Care Provider Katherine Blake Bourgeois MD Primary Care Provider Unavail able Celina Mann DO Primary Care Pro vider Unavailable Mercedes Han MD Primary Care Provider [phone] Celina Mann DO Primary Care Pro vider Unavailable Mercedes Han MD Primary Care Provider + [phone] Callum Hernandez DO Primary Care Provider Katherine Lopez Aragon MD Primary Care Provider UnaBuddy Castellanos NP Primary Care Provider Unavail able [facility], Pcp Primary Care Provider UnavailBuddy Stephen NP Primary Care Provider Unavail able Encounter Details Date Type Department Care Team Description 09/19/2012 Pt. Non Urgent Medical Question Adult Medicine [address] [address] Luciano Skinner MD Social History Tobacco Use [...] filedocumented in this encounter Care Teams Medical Equipment Sales Relationship Specialty Start Date End Date Luciano Skinner MD PCP - General 12/13/10 05/10/14 Blake Rivera MD PCP - General Internal Medicine 05/11/14 03/03/15 Celina Mann, PCP - General Internal Medicine 03/04/15 02/06/16 Mercedes Han MD [address] [place] [address] PCP - General Internal Medicine 02/07/16 03/20/16 Celina Mann, PCP - General Internal Medicine 03/21/16 11/23/20 Mercedes Han MD [address] [place] [address] PCP - General Internal Medicine 11/24/20 01/11/21 Callum Hernandez DO [address] [place] [address]651 PCP - General Internal Medicine 01/12/21 03/19/21 Lopez Brennan MD [address] [place] [address]896 PCP - General Internal Medicine 03/20/21 10/19/21 Buddy Shaw NP [address] [place] [address]853 PCP - General Family Practice 10/20/21 01/04/22 [facility], [address] [address] PCP - General Internal Medicine 01/05/22 11/28/22 Buddy Shaw NP [address] [place] [address] PCP - General Family Practice 11/29/22 documented as of this encounter
== END 2024-10-05 09:38 | disposition home or self-care (01) ==
LOC: HO.HMCC 08:25
PROVIDERS: PCP Nurse Practitioner Family; Visit Provider Nurse Practitioner Family
DX: G25.81 Restless legs syndrome (principal)

== ENCOUNTER 2024-10-05 08:25 | Outpatient (REF) | payer MEDICARE, SELFPAY ==
[2024-10-05 10:12] LABS: MANUAL DIFF FLAG NO
[2024-10-05 10:29] LABS: Appearance Urine Clear; Color Urine Yellow; Glucose Urine UA Negative (Negative); Leukocyte Esterase Urine Negative (Negative); Nitrite Urine Negative (Negative); Specific Gravity - Urine 1.015 (1.005-1.025); Urine Blood Negative (Negative); Urine Ketones Negative (Negative); Urine Protein Negative (Neg-Trace)
[2024-10-05 10:30] LABS: Basophils Absolute Auto 0.1 X10*3/uL (0.0-0.2); Basophils Percent Auto 1.1 % (0-2); Eosinophils Absolute Auto 0.2 X10*3/uL (0.0-0.4); Eosinophils Percent Auto 2.7 % (0-4); Hematocrit 42.4 % (37.0-47.0); Hemoglobin 14.3 g/dl (12.0-16.0); Imm Gran Abs Auto 0.02 X10*3/uL (0.00-0.03); Imm Gran Pct Auto 0.3 % (0.0-0.4); Lymphocytes Absolute Auto 1.4 X10*3/uL (1.2-4.9); Lymphocytes Percent Auto 22.6 % (20-40); Mean Corpuscular HGB Conc 33.7 g/dl (31.0-35.0); Mean Corpuscular Hemoglobin 31.8 pg (27.0-33.0); Mean Corpuscular Volume 94.4 fL (80.0-98.0); Mean Platelet Volume 11.2 fL (9.4-12.3); Monocytes Absolute Auto 0.5 X10*3/uL (0.1-1.2); Monocytes Percent Auto 8.1 % (2-11); Neutrophils Absolute Auto 4.1 x10*3/uL (2.0-8.3); Neutrophils Percent Auto 65.2 % (45-73); Platelet Count 256 X10*3/uL (160-400); Red Blood Count 4.49 X10*6/uL (4.20-5.50); Red Cell Distribution Width 12.7 % (11.0-16.0); White Blood Count 6.3 X10*3/uL (4.8-10.8)
[2024-10-05 11:00] LABS: Alanine Aminotransferase 23 U/L (0-31); Albumin Level 4.2 g/dL (3.5-5.0); Alkaline Phosphatase 85 U/L (39-117); Anion Gap 11 (12-20); Aspartate Amino Transferase 23 U/L (5-31); Bilirubin Total 0.3 mg/dL (0.0-1.0); Blood Urea Nitrogen 16 mg/dL (9-16); Carbon Dioxide 23 mmol/L (22-29); Chloride 109 mmol/L (96-108); Estimated Glomerular Filt Rate > 60; Ferritin 44 ng/mL (10-250); Glucose Random 102 mg/dL (60-115); Iron 109 mcg/dL (30-160); Percent Iron Saturation 38 % (15-50); Potassium 4.2 mmol/L (3.3-5.1); Sodium 139 mmol/L (135-145); TSH reflex Free T4 2.54 uIU/mL (0.32-4.0); Total Iron Binding Capacity 290 mcg/dL (228-428); Total Protein 7.1 g/dL (6.5-8.0); Unsaturated Iron Binding 181 ug/dL
== END 2024-10-05 08:26 | disposition home or self-care (01) ==
LOC: HO.HMGCLDS 08:25
PROVIDERS: PCP Nurse Practitioner Family; Visit Provider Nurse Practitioner Family
DX: G25.81 Restless legs syndrome (principal); R79.89 Other specified abnormal findings of blood chemistry; R30.0 Dysuria
CPT/HCPCS: 36415; 80053; 81003; 82728; 83540; 84443; 85025; 99212

== ENCOUNTER 2024-11-04 08:46 | Outpatient (AMB) | payer MEDICARE, SELFPAY ==
--- NOTE | 2024-11-04 09:06 | MHC.OFFVIS ---
Vital Signs 11/04/24 09:07 Height 5 ft 4 in Weight 212 lb BMI 36.4 Intake Visit Reasons: OV- Right Dupuytrens contracture Intake Note: Nereida Javier 69 yr old lt hand dominant female presents today for her follow up visit to review EMG and discuss right hand dupuytrens contracture. Patients states she is having soreness and minor weakness in her rt hand. She is s/p Left Hand & RF Partial Dup. Fac. 06/07/22 [place] EMG done 08/2024 IMPRESSION: 1. This is a normal study. 2. There is no electrodiagnostic evidence for median neuropathy, ulnar neuropathy, brachial plexopathy, or cervical radiculopathy. Allergies No Known Allergies [No Known Allergies*] Allergy (Verified 10/05/24 08:29) HPI HPI OV- Right Dupuytrens contracture: Details: Nereida is a 69 year old left hand dominant woman who returns for a NCS review of her bilateral hand numbness & right hand pain. She complains of pain in her right hand, along with more weakness. She localizes her pain mostly to the base of her thumb. She also complains of numbness in her median nerve distribution, along with weakness in flower stripper strength. Symptoms intermittent, but daily. She says she works part-time in a [employer] and often uses her hands for heavy lifting & gripping. She has a known Dupuytrens cord in her right hand. She has a Hx of a left ring finger partial fasciectomy, DOS: 06/07/22. She is happy with the results of her surgery. [facility] Medical History Allergic rhinitis Chronic pain syndrome SVT (supraventricular tachycardia) Elevated cholesterol Obstructive sleep apnea of adult Nicotine dependence, cigarettes, uncomplicated Osteopenia GERD (gastroesophageal reflux disease) Tubular adenoma Depression with anxiety Sacroiliitis Arthritis Swelling of knee joint, left Tardive dyskinesia Surgical History History of colonoscopy History of hysterectomy History of rotator cuff surgery History of hand surgery History of cardiac radiofrequency ablation (RFA) Family History Father Mental health disorder Paternal Grandfather Mental health disorder Daughter Mental health disorder Mother Lung cancer Social History Household Members Other:: daughter Housing: House Are you a primary progressive care manager to a significant other at home: No Do you presently have visiting nurse or other home services: No Patient Tobacco Use Status: Current everyday Tobacco user Tobacco use type: Cigarette Years Smoked: (onset 17yo, 1/2-1ppd x 50yrs, 35pyh) e-Cigarette/Vaping Use: Never Used Second Hand Smoke Exposure: No service: No Current occupational status: retired Current occupation: works part [employer] Current occupational exposures/hazards: No Cognitive needs: No Hearing needs: No Vision needs: Yes Review of Systems Const All systems reviewed & are unremarkable except as noted in HPI and below Physical Exam Vital Signs: BMI result Body Mass Index 36.4 Const General: no acute distress and alert Orientation/consciousness: patient oriented x3 Neuro General: patient oriented x3 Extrem Other: Evaluation of Bilateral Upper Extremity: The patient is alert, oriented, and in no acute distress Neuro: Decreased subjective sensation in the right median nerve distribution, normal sensation in the left median nerve distribution. Normal sensation in the ulnar nerve distribution bilaterally No thenar or intrinsic wasting Good APB muscle belly firing and good finger cross Vascular: Cap refill brisk ROM: She can make a fist and extend all her digits No locking or catching, no A1 kailey tenderness. No subluxation of the extensor tendons when she makes a fist. She is most Tender over the right basal joint No tenderness over the 1st dorsal compartment, or MCP joint or A1 kailey. Right hand: There is a Dupuytrens cord in the right hand, extending from the mid-palm to the middle finger There is a Dupuytrens cord in the right hand, extending from the mid-palm to the ring finger Middle finger: MCP 5/PIP 0 Ring finger: MCP 5/PIP 0 Left hand: Ring finger: MCP 0/PIP 0 Nerve Conduction Study: IMPRESSION: 1. This is a normal study. 2. There is no electrodiagnostic evidence for median neuropathy, ulnar neuropathy, brachial plexopathy, or cervical radiculopathy. Sarai Dooley MD, ROYER 08/26/24 Psych Appearance: grossly normal Affect: normal affect Attitude: cooperative Assessment & Plan Assessment & Plan (1) Arthritis of carpometacarpal (CMC) joint of right thumb: Code(s): M18.11 - Unilateral primary osteoarthritis of first carpometacarpal joint, right hand Category: Medical (2) Bilateral hand numbness: Code(s): R20.0 - Anesthesia of skin Category: Medical (3) Dupuytren's contracture of right hand: Code(s): M72.0 - Palmar fascial fibromatosis [Dupuytren] Category: Medical Plan Assessment & Plan: 1. Right basal joint arthritis Based on history & PE I educated her about this condition I discussed operative and non operative treatment options. I am not recommending surgery at this time and she does not want surgery. I discussed activity modification at length, they should limit or avoid any heavy or repetitive pinching or gripping activities She was fitted for a comfort cool brace to wear with daily activity She should work on ROM exercises, and avoid any gripping or strengthening activities I discussed the use of assistive devices for daily activity She can follow up prn, confirm with X-rays 3V R hand to confirm basal joint arthritis at her next appointment 2. Bilateral hand numbness In the median nerve distribution, unsure about small finger involvement Symptoms intermittent, but daily, worse at night & becoming more frequent Decreased subjective sensation in the right median nerve distribution Her NCS from 08/26/24 was negative for any peripheral nerve compression 3. Right middle finger Dupuytrens contracture MCP 5/PIP 0 4. Right ring finger Dupuytrens contracture MCP 5/PIP 0 5. Right thumb Dupuytren's nodules Roughly at the palmar digital crease and extending into the 1st webspace. No contractures at this time. We will manage this non-operatively at this time She can follow up to discuss possible treatment options in the future I encouraged her to continue working on ROM, including flattening her palm on a hard surface and other stretching exercises 6. . Left Dupuytrens contracture of ring finger, S/P partial fasciectomy Pre-operatively: MCP 45/PIP 0 Postoperatively: MCP 0/PIP 0 Doing well, no complaints Scribed for Radha Green MD by Pillo Winter, medical reception specialist, on 11/04/24 at 9:30 AM, EST. Coding Level of Care Code Est Pt Level 4 (40250) Diagnoses Arthritis of carpometacarpal (CMC) joint of right thumb M18.11 Bilateral hand numbness R20.0 Dupuytren's contracture of right hand M72.0
--- OUTSIDE RECORDS SUMMARY | 2024-11-04 09:06 | XMS_ITS | Clinical Summary ---
Author Organization [employer] [facility] Address [address] [place] [address] Care Team Providers Care Indirect Fire Infantryman Name Role Phone Buddy Shaw NP Primary Care Provider [phone] Surgical History Surgery Date Site/Laterality Comments ROTATOR [...] 02/21/1976 Zoster Vaccines (1 of 2) 02/21/1976 DTaP,Tdap,and Td Vaccines (3 - Td or [...] 2025 01/22/2020, 02/10/2018, 02/22/2017, Additional history exists RSV Immunization Adult Patients (1 - 1-dose 75+ series) 02/21/2032 HIB Vaccines Aged Out No longer eligi [...] evidence of malignancy. BI-RADS 1 - negative Buddy Shaw NP IMG XR PROCEDURES Final Resu lt from Last 3 Months or Most Recently Relevant to Health Maintenance Care Teams Indirect Fire Infantryman Relationship Specialty Start Date End Date Buddy Shaw, MUKUL [address] [facility] RAQUEL Presley PCP - General 11/29/22
[2024-11-04 09:07] VITALS: BMI 36.4
== END 2024-11-04 09:58 | disposition home or self-care (01) ==
LOC: HO.HOS 08:49
PROVIDERS: PCP Nurse Practitioner Family; Visit Provider Orthopaedic Surgery
DX: M18.11 Unilateral primary osteoarthritis of first carpometacarpal joint, right hand (principal); R20.0 Anesthesia of skin; M72.0 Palmar fascial fibromatosis [Dupuytren]
CPT/HCPCS: 99213

== ENCOUNTER → 2024-11-04 08:46 | Outpatient (BNVA) | payer MEDICARE, SELFPAY | PROVIDERS: PCP Nurse Practitioner Family; Visit Provider Orthopaedic Surgery | DX: M72.0 Palmar fascial fibromatosis [Dupuytren] (principal); M18.11 Unilateral primary osteoarthritis of first carpometacarpal joint, right hand; R20.0 Anesthesia of skin | CPT/HCPCS: 99212 ==

== ENCOUNTER 2024-12-30 08:58 | Outpatient (AMB) | payer MEDICARE, SELFPAY ==
--- NOTE | 2024-12-30 09:06 | A.OFFPC_ITS ---
Intake Visit Reasons: AWV Allergies No Known Allergies (No Known Allergies*) Allergy (Verified 10/05/24 08:29) Tobacco use date assessed: 06/11/24 Dental Screening Dental Screen Date: 06/11/24 [facility] Medical History Allergic rhinitis Chronic pain syndrome SVT (supraventricular tachycardia) Elevated cholesterol Obstructive sleep apnea of adult Nicotine dependence, cigarettes, uncomplicated Osteopenia GERD (gastroesophageal reflux disease) Tubular adenoma Depression with anxiety Sacroiliitis Arthritis Swelling of knee joint, left Tardive dyskinesia Surgical History History of colonoscopy History of hysterectomy History of rotator cuff surgery History of hand surgery History of cardiac radiofrequency ablation (RFA) Family History Father Mental health disorder Paternal Grandfather Mental health disorder Daughter Mental health disorder Mother Lung cancer Social History Household Members Other:: daughter Housing: House Are you a primary respiratory care faculty to a significant other at home: No Do you presently have visiting nurse or other home services: No Patient Tobacco Use Status: Current everyday Tobacco user Tobacco use type: Cigarette Years Smoked: (onset 17yo, 1/2-1ppd x 50yrs, 35pyh) e-Cigarette/Vaping Use: Never Used Second Hand Smoke Exposure: No service: No Current occupational status: retired Current occupation: works part [employer] Current occupational exposures/hazards: No Cognitive needs: No Hearing needs: No Vision needs: Yes Questionnaire PHQ-9 Over the last 2 weeks, how often have you been bothered by any of the following problems? 2. Feeling down, depressed, or hopeless: not at all 3. Trouble falling or staying asleep, or sleeping too much: not at all 4. Feeling tired or having little energy: not at all 5. Poor appetite or overeating: not at all 6. Feeling bad about yourself - or that you are a failure or have let yourself or your family down: not at all 7. Trouble concentrating on things, such as reading the newspaper or watching television: not at all 8. Moving or speaking so slowly that other people could have noticed. Or the opposite - being so fidgety or restless that you have been moving around a lot more than usual: not at all 9. Thoughts that you would be better off or of hurting yourself in some way: not at all Source: Developed by Drs. Callum Valdivia, Sarah Roberts, Jaime Harrison and colleagues, with an educational sigrid from [employer]. Thrive Questionnaire Date Thrive assessed: 06/04/24 I am a: Patient What is your living situation today?: I have a place to live, but I am worried about losing it in the future Within the past 12 months, did the food you bought not last and you didn't have the money to get more?: Often true Within the past 12 months, did you worry whether your food would run out before you got money to buy more?: Often true Do you have trouble paying for medicines?: Yes Do you have trouble getting transportation to medical appointments?: No Do you have trouble paying your heating and electricity bill?: Yes Do you have trouble taking care of your child, family member or friend?: No Do you have trouble with day-to-day activities such as bathing, preparing meals, shopping, managing finances, etc.?: No Are you currently unemployed and looking for a job?: No Are you interested in more education?: No Please select the resources that you would like help with: Paying for medicine Currently or been in a relationship where the following occur: No concerns reported THRIVE Score: 4 GIBRAN-7 AMB Questionnaire GIBRAN-7 Date GIBRAN - 7 assessed: 06/11/24 Source: Developed by Drs. Callum Valdivia, Sarah Roberts, Jaime Harrison and colleagues, with an educational sigrid from [employer]. Physical exam (Primary Care) Tobacco/Smoking Status: Tobacco use Status Tobacco use date assessed 06/11/24 10/12/24 08:50 Patient Tobacco Use Status Current everyday Tobacco 10/12/24 08:50 Tobacco use type Cigarette 10/12/24 08:50 e-Cigarette/Vaping Use Never Used 10/12/24 08:50 Thrive Assessment: Date of Thrive Assessment Date Thrive assessed 06/04/24 12/23/24 13:08 Currently or been in a relationship where the following occur: No concerns reported Coding
[2024-12-30 09:11] VITALS: BP 114/74; PULSE 77; RESP 16; TEMP 37; O2SAT 96; BMI 35.9
--- NOTE | 2024-12-30 09:17 | AM.OFFVISMDC ---
Intake Vital Signs 12/30/24 09:11 12/30/24 09:20 Height 5 ft 4 in Weight 209 lb BMI 35.9 35.9 BP 114/74 Blood Pressure Location Rt brachial Position Sitting Respiration 16 Pulse 77 Pulse Source Pulse Oximeter Temp 98.6 F Temp Source Oral Pulse Oximetry (%) 96 Oxygen Delivery Method Room Air Intake Visit Reasons: AWV Technical Designer Required: No Accompanied by: Self / Same As Patient Allergies No Known Allergies (No Known Allergies*) Allergy (Verified 12/30/24 09:15) Medication List - Last Reconciled 12/30/24 by Buddy Shaw, GAS TRUCK DRIVER- albuterol sulfate 90 mcg/actuation (Ventolin HFA) 2 puffs inhalation Q4-6H PRN atorvastatin 20 mg PO DAILY 90 days bupropion HCl XL 150 mg PO QAM duloxetine 60 mg PO DAILY levothyroxine 25 mcg PO DAILY lorazepam 0.5 mg PO BID PRN omeprazole 40 mg PO DAILY 90 days terazosin 1 mg PO BEDTIME 30 days ziprasidone HCl 20 mg PO DAILY HPI AWV HPI Details AWV: CCC and PPP in scan pile HPI Comments History of Present Illness Details dyslipidemia: on a statin, will cont to monitor (labs) [facility] Medical History Allergic rhinitis Chronic pain syndrome SVT (supraventricular tachycardia) Elevated cholesterol Obstructive sleep apnea of adult Nicotine dependence, cigarettes, uncomplicated Osteopenia GERD (gastroesophageal reflux disease) Tubular adenoma Depression with anxiety Sacroiliitis Arthritis Swelling of knee joint, left Tardive dyskinesia Surgical History History of colonoscopy History of hysterectomy History of rotator cuff surgery History of hand surgery History of cardiac radiofrequency ablation (RFA) Family History Father Mental health disorder Paternal Grandfather Mental health disorder Daughter Mental health disorder Mother Lung cancer Social History Household Members Other:: daughter Housing: House Are you a primary healthcare liaison to a significant other at home: No Do you presently have visiting nurse or other home services: No Patient Tobacco Use Status: Current everyday Tobacco user Tobacco use type: Cigarette Years Smoked: (onset 17yo, 1/2-1ppd x 50yrs, 35pyh) e-Cigarette/Vaping Use: Never Used Second Hand Smoke Exposure: No service: No Current occupational status: retired Current occupation: works part [employer] Current occupational exposures/hazards: No Cognitive needs: No Hearing needs: No Vision needs: Yes Questionnaire Medicare Wellness Checkup What [age] 65-69 What gender do you identify with?: female During the past 4 weeks, how much have you been bothered by emotional problems such as feeling anxious, depressed, irritable, sad or downhearted, and blue?: slightly During the past 4 weeks, has your physical & emotional health limited your social activities with family, friends, neighbors, or groups?: not at all During the past 4 weeks, how much bodily pain have you generally had?: mild pain During the past 4 weeks, was someone available to help you if you needed & wanted help?: yes, as much as I wanted During the past 4 weeks, what was the hardest physical activity you could do for at least 2 minutes?: moderate Can you get to places out of walking distance without help? (For eg., can you travel alone on buses, taxis or drive your car?): Yes Can you go shopping for groceries or clothes without someone's help?: Yes Can you prepare your own meals?: Yes Can you do your housework without help?: Yes Because of any health problems, do you need the help of another person with your personal care needs such as eating, bathing, dressing or getting around the house?: No Can you handle your own money without help?: Yes During the past 4 weeks, how would you rate your health in general?: excellent During the past 4 weeks how have things been going for you?: pretty well Are you having difficulties driving your car?: no Do you always fasten your seat belt when you are in a car?: yes, usually During past 4 weeks, have you been bothered by the following: never: Falling or dizzy when standing up, Sexual problems?, Trouble eating well?, Teeth or denture problems?, Problems using the telephone? and Tiredness or fatigue? Have you fallen 2 or more times in the past year?: No Are you afraid of falling?: Yes Are you a smoker?: yes, and I might quit During the past 4 weeks, how many drinks of wine, beer, or other alcoholic beverages did you have?: 1 drink or less per week Do you exercise for about 20 minutes 3 or more times a week?: yes, most of the time Have you been given information to help with the following?: no: Hazards in your house that might hurt you? and no: Keeping track of your medications? How often do you have trouble taking medicines the way you have been told to take them?: I always take medicine as prescribed How confident are you that you can control & manage most of your health problems?: very confident What is your race?: White Mini Mental State Exam (MMSE) Orientation What is the (year) (season) (date) (day) (month)?: year, season, date, day and month Where are we (state) (county) (town or city) (hospital) (floor)?: state, county and town or city Registration Name of 3 unrelated objects clearly and slowly, then ask patient to repeat all 3 of them. (1st repeat determines score. Make sure they can repeat all three): object 1, object 2 and object 3 Attention & Calculation (CHOOSE ONE) Spell WORLD backwards (DLROW): 5 letters Recall Ask patient to repeat the 3 items from question #3.: object 1, object 2 and object 3 Language Show patient a wristwatch & ask what it is. Repeat for pencil.: watch and pencil Ask the patient to repeat the phrase 'No ifs, ands, or buts' after you.: correct Ask the patient to 'take a piece of paper with their right hand' 'fold paper in half' 'place paper on floor': take paper in right hand, fold paper in half and place paper on floor Print the sentence 'CLOSE YOUR EYES' on a piece. If patient actually closes eyes then score.: followed written direction Give patient a blank piece of paper & ask to write a sentence. Score if it contains a noun & verb.: sentence contains subject and verb Ask patient to copy figure of intersecting pentagons exactly. Score if all 10 angles & 2 intersects are included.: all 10 angles present & 2 are intersected Score Score: 28 Activity of Daily Living Bathing - sponge bath, tub bath or shower: receives no assistance (gets in/out by self, if usual bathing means Dressing - getting clothes from closets & drawers, including inner/outer garments & fasteners.: gets clothes & gets completely dressed without help Toileting - going to the 'toilet room' for urine/bowel elimination & cleaning self/arranging clothes: goes to toilet room, cleans self, arranges clothes without help Transfer: moves in & out of bed and chair without help (may use support object) Continence: controls urination/bowel movements completely by self Feeding: feeds self without help Total Score: 0 Information obtained from: patient Using telephone: independent Traveling: independent Shopping: independent Preparing meals: independent Housework: independent Taking medicine: independent Managing money: independent PHQ-9 Over the last 2 weeks, how often have you been bothered by any of the following problems? 1. Little interest or pleasure in doing things: not at all 2. Feeling down, depressed, or hopeless: not at all 3. Trouble falling or staying asleep, or sleeping too much: not at all 4. Feeling tired or having little energy: not at all 5. Poor appetite or overeating: not at all 6. Feeling bad about yourself - or that you are a failure or have let yourself or your family down: several days 7. Trouble concentrating on things, such as reading the newspaper or watching television: not at all 8. Moving or speaking so slowly that other people could have noticed. Or the opposite - being so fidgety or restless that you have been moving around a lot more than usual: not at all 9. Thoughts that you would be better off or of hurting yourself in some way: several days Total score: 2 Depression Screening Interpretation: Negative Depression Screening Done: Yes 88172 - PHQ-9 Billing: Yes Source: Developed by Drs. Callum Valdivia, Sarah Roberts, Jaime Harrison and colleagues, with an educational sigrid from [employer]. Physical Exam Vital Signs: Last Vital Signs Temp 98.6 F 12/30/24 09:11 Pulse 77 12/30/24 09:11 Resp 16 12/30/24 09:11 BP 114/74 12/30/24 09:11 Pulse Ox 96 12/30/24 09:11 Oxygen Delivery Method Room Air 12/30/24 09:11 BMI result Body Mass Index 35.9 Neuro Other: neg rhombereg, able to tandem walk, able to stand from sitting position, passed whisper test Assessment & Plan Assessment & Plan (1) Immunizations incomplete: Code(s): Z28.39 - Other underimmunization status (2) Dyslipidemia: Code(s): E78.5 - Hyperlipidemia, unspecified (3) Vitamin D deficiency: Code(s): E55.9 - Vitamin D deficiency, unspecified Plan . Orders: Orders Comprehensive [facility]. Panel Fast Today E78.5 - Hyperlipidemia, unspecified TSH reflex Free T4 Today E78.5 - Hyperlipidemia, unspecified UA CC w/rflx Micro + Cult Today E78.5 - Hyperlipidemia, unspecified Hepatitis A,B,C Profile Today Z28.39 - Other underimmunization status Complete Blood Count Auto Diff Today E78.5 - Hyperlipidemia, unspecified Lipid Panel Today E78.5 - Hyperlipidemia, unspecified Vitamin D 25-OH Total Today E55.9 - Vitamin D deficiency, unspecified Quality Reporting (2019) Depression/Bipolar (159/160/161/177) PHQ-9: Total score: 2 Coding Level of Care Code Medicare Subsequent (G0439) Diagnoses Immunizations incomplete Z.39 Dyslipidemia E78.5 Vitamin D deficiency E55.9 CPT Codes Advance Care Planning - Time spent: 1-15 minutes, on File ([id number]) Additional Codes PHQ-9 - 20630 - PHQ-9 Billing: Yes ([id number]) Advance Care Planning Forms completed: Health Care Proxy (filled out), MOLST (filled out) and Living will (encourage to do) Time spent: 1-15 minutes, on File Actual minutes spent: 12
[2024-12-30 09:20] VITALS: BMI 35.9
--- OUTSIDE RECORDS SUMMARY | 2024-12-30 09:25 | XMS_ITS | Clinical Summary ---
Author Organization [facility] Address [address] [place] [address] Care Team Providers Care Train Inspector Name Role Phone Buddy Shaw NP Primary Care Provider [phone] Surgical History Surgery Date Site/Laterality Comments ROTATOR [...] PCV) 02/21/1976 Zoster Vaccines (1 of 2) 2007 DTaP,Tdap,and Td Vaccines (3 - Td or Tdap) 03/20/2020 03/20/2010, 04/26/1999 Cholesterol Screening (Lipid Panel) 05/12/2022 Colorectal Cancer Screening: Colonoscopy 05/12/2022 Falls Risk Assessment 05/12/2022 Hepatitis C Screening 05/12/2022 Osteoporosis Screening (Bone Density Screening) 05/12/2022 Social Influencers of Health Screening 05/12/2022 Breast Cancer Screening 11/29/2023 11/29/19 22, 09/17/2020, 02/21/2019, Additional history exists COVID-19 Vaccine ( season) 2024 10/04/2021, 07/25/2020 Depression Screening 06/03/2024 Influenza Vaccine (#1) 2025 0, 02/10/2018, 02/22/2017, Additional history exists RSV Immunization [...] interpreted with the aid of computer-aided detection. Comparison is made with 09/17/2020 and as far back as 02/02/2017. Breast parenchyma is composed of scattered fibroglandular densities. No new suspicious mass, architectural distortion, or suspicious [...] Recently Relevant to Health Maintenance Care Teams Train Inspector Relationship Specialty Start Date End Date Buddy Shaw, MUKUL [facility] [place] P[facility] - General 11/29/22
--- OUTSIDE RECORDS SUMMARY | 2024-12-30 09:25 | XMS_ITS | Patient Health Record ---
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
--- OUTSIDE RECORDS SUMMARY | 2024-12-30 09:25 | XMS_ITS | Patient Health Record ---
Author Organization [facility] Address [address] [facility] [place] [address] Care Team Providers Care Sign Language Translator Name Role Phone Buddy Bolden Primary Care Provider Unav ailable Leandro Harvey Unavailable [phone] Allergies Allergen (clinical drug ingredient) Drug/Non Drug Allergy documented on EMR Reaction Allergy Type Onset Date Status pregabalin Lyrica dizziness Drug Allergy Active Reason For Referral No Information Medications Medication SIG (Take, Route, Frequency, Duration) Notes Start Date End Date Status Atorvastatin Calcium 20 MG 1 tablet Orally Once a day; Duration: 30 day(s) Active buPROPion HCl ER (XL) 300 MG 1 tablet in the morning Orally Once a day; Duration: 30 day(s) Active Premarin 0.3 MG 1 [...] a day; Duration: 30 day(s) both Not-Taking Geodon 80 MG [...] W/U Status Risk Notes Problem Tinea unguium (471861974) Tinea unguium (B35.1) Active confirmed Response to treatment,Un resolved Problem Plantar wart (13601369) Plantar wart (B07.0) Active confirmed Vital Signs Height 5ft4in in 03/03/2024 Weight 208 lbs 03/03/2024 BMI 35.7 kg/m2 03/03/2024 Procedures Procedure Date Ordered Date Performed Result Body Sit e 26948-Hjru Destruction, 1-14 03/03/2024 N/A Encounters Encounter Location Date Provider Diagnosis [facility] [address] [address] 03/03/2024 Leandro Harvey Tinea unguium B35.1 ; Pain in right toe(s) M79.674 ; Pain in left toe(s) M79.675 ; Plantar wart B07.0 and Left foot pain M79.[address] [facility] [address] 06/05/2024 Leandro Harvey Assessments Encounter Date Diagnosis [...] Treatment Pending Test Test Name Order Date 87776-Sayp Destruction, 1-14 03/03/2024 22218- Removal of Foreign Body, Subcut 1 50,[id number] TENDON SHEATH/LIGAMENT 1 50,[id number]-KUE TENDON SHEATH/LIGAMENT 0 02/15/[id number],[id number] TENDON SHEATH/LIGAMENT 0 02/23/[id number],[id number] TENDON SHEATH/LIGAMENT 1 Next Appt Details Provider Name:Leandro Harvey , 01/05/2025 09:00:00 AM, [address] [place] [address], [phone], Insurance Providers Payer Name Payer Address Payer Phone Subscriber Number Group Number Insured Name Patient Relationship to Insured Coverage Start Date Coverage End Date Medicare National Govt Svcs Inc [address] [place] [address] [id number] Nereida Mcbride Self - patient is the insured [facility] [address] [place] [address] [phone] [id number] Nereida Mcbride Self - patient is the insured Medical (General) History Medical History History ICD Code Anxiety Arthritis Back,Hip,and Knee pain sinusitis Measles Mumps Chicken pox Joint implants/screws CAD (Cholesterol) Depression Surgical History Surgery Date(Month/Year) rods in both shoulders Left SQ Plantar Fibroma/S.T. Mass (Unspe c) 09/2014 rotator cuff 2006 colonoscopy
== END 2024-12-30 09:56 | disposition home or self-care (01) ==
LOC: HO.HMCC 08:59
PROVIDERS: Visit Provider Nurse Practitioner Family
DX: Z00.00 Encounter for general adult medical examination without abnormal findings (principal); E78.5 Hyperlipidemia, unspecified; Z28.39 Other underimmunization status; E55.9 Vitamin D deficiency, unspecified

== ENCOUNTER → 2024-12-30 08:58 | Outpatient (BNVA) | payer MEDICARE, SELFPAY | PROVIDERS: Visit Provider Nurse Practitioner Family | DX: Z00.01 Encounter for general adult medical examination with abnormal findings (principal); R33.9 Retention of urine, unspecified; R39.12 Poor urinary stream; E78.5 Hyperlipidemia, unspecified; E55.9 Vitamin D deficiency, unspecified | CPT/HCPCS: 51798; 81003; 96127; 99212 ==

== ENCOUNTER 2024-12-30 12:37 | Outpatient (AMB) | payer MEDICARE, SELFPAY ==
--- NOTE | 2024-12-30 12:46 | MHC.OFFVIS ---
Intake Visit Reasons: 3M follow up/ PVR Intake Note: Patient is present for 3M/ PVR Urology Medication:TERAZOSIN Antibiotic Allergy:NONE Blood Thinner:NONE Last PVR:0ML'S Todays PVR:53ML'S Rn Dialysis Required: No Allergies No Known Allergies (No Known Allergies*) Allergy (Verified 12/30/24 13:23) Medication List - Last Reconciled 12/30/24 by LESVIA Levin- albuterol sulfate 90 mcg/actuation (Ventolin HFA) 2 puffs inhalation Q4-6H PRN atorvastatin 20 mg PO DAILY 90 days bethanechol chloride 50 mg PO BID 30 days bupropion HCl XL 150 mg PO QAM duloxetine 60 mg PO DAILY levothyroxine 25 mcg PO DAILY lorazepam 0.5 mg PO BID PRN ziprasidone HCl 20 mg PO DAILY HPI Comments Details: Nereida Keller is a very pleasant 69-year-old female patient of Dr. Shaw. She has a past medical history of arthritis, SVT, sleep apnea, GERD, hypercholesteremia, depression, anxiety, chronic pain syndrome, and sacroiliitis. She presents to the office today for a follow up of her incomplete bladder emptying. In discussion with the patient today she reports to be doing and feeling well. She reports that although she is compliant with her terazosin at bedtime she does continue to feel episodes of incomplete bladder emptying. She does have a previous history of performing CIC in the past for incomplete bladder emptying however had been having decreased postvoid residuals and has been emptying her bladder independently with the assistance of urological medications. We did discuss trial of bethanechol. In office urinalysis results reviewed with the patient today. PVR 53 mL. Previous workup has included a retroperitoneal ultrasound 04/25 noting bilateral kidneys with no calculi or hydronephrosis noted. The bladder is well distended. Bilateral ureteral jets are demonstrated. Pre void bladder volume is approximately 380 mL. Postvoid bladder volume is approximately 75 mL. She denies hematuria, dysuria, foul smelling urine, flank pain, fever, and or chills. We did discussed potential causes of incomplete bladder emptying as well as further treatment options and risks and benefits of these treatment options. All questions were answered. She otherwise offers no other issues or concerns at this time. [facility] Medical History Allergic rhinitis Chronic pain syndrome SVT (supraventricular tachycardia) Elevated cholesterol Obstructive sleep apnea of adult Nicotine dependence, cigarettes, uncomplicated Osteopenia GERD (gastroesophageal reflux disease) Tubular adenoma Depression with anxiety Sacroiliitis Arthritis Swelling of knee joint, left Tardive dyskinesia Surgical History History of colonoscopy History of hysterectomy History of rotator cuff surgery History of hand surgery History of cardiac radiofrequency ablation (RFA) Family History Father Mental health disorder Paternal Grandfather Mental health disorder Daughter Mental health disorder Mother Lung cancer Social History Household Members Other:: daughter Housing: House Are you a primary medicare interviewer to a significant other at home: No Do you presently have visiting nurse or other home services: No Patient Tobacco Use Status: Current everyday Tobacco user Tobacco use type: Cigarette Years Smoked: (onset 17yo, 1/2-1ppd x 50yrs, 35pyh) e-Cigarette/Vaping Use: Never Used Second Hand Smoke Exposure: No service: No Current occupational status: retired Current occupation: works part [employer] Current occupational exposures/hazards: No Cognitive needs: No Hearing needs: No Vision needs: Yes Review of Systems Const Reports as per HPI Eyes Reports no additional complaints ENT Reports no additional complaints Card Reports as per HPI Resp Reports as per [facility] GI Reports as per HPI Reports as per [facility] Musc Reports as per HPI Neuro Reports no additional complaints Psych Reports as per HPI Endo Reports no additional complaints Claudio/Lymph Reports no additional complaints Aller/Immun Reports no additional complaints Physical Exam Const General: cooperative, healthy appearing, comfortable, no acute distress, well developed, alert and awake Nutritional Appearance: overweight Orientation/consciousness: patient oriented x3 Limitations: no limitations HEENT Head: Yes normal to inspection, Yes normocephalic and Yes atraumatic Ears: hearing grossly normal bilaterally Eyes General: appearance normal, both eyes and all related structures Neck Neck: Yes normal visual inspection and Yes trachea midline Chest Chest palpation & inspection: normal inspection of the chest Resp Effort & Inspection: normal respiratory effort and able to speak in complete sentences Cardio Rate: regular rate GI Inspection: Yes normal to inspection General: Yes no CVA tenderness Back/Spine/Pelvis Back: no CVA tenderness Skin General skin exam: no rashes or lesions noted Neuro General: patient oriented x3 Extrem General: Yes normal to inspection Psych Appearance: grossly normal and well kempt Mental Status: mental status grossly normal Speech and movement: Normal speech and movement present and Clear speech present Affect: normal affect Attitude: cooperative Thought process: Normal thought process present Thought content: Normal thought content present Insight: Fair insight present (Psych) Judgement: Fair judgement present (Psych) Office Procedures Post Void Residual Post Residual Void Post Void Residual (PVR): 53 43058-Zazx Void Residual by ultrasound Results AMB Urinalysis, Automated UA Leukoctes 0 Karime/uL Last Edit by Jose De Jesus Miller [facility] on 12/30/24 13:06 UA Nitrite Negative Last Edit by Jose De Jesus Miller [facility] on 12/30/24 13:06 UA Urobilinogen 0.2 mg/dL Last Edit by Jose De Jesus Miller [facility] on 12/30/24 13:06 UA Protein 15 mg/dL Last Edit by Jose De Jesus Miller [facility] on 12/30/24 13:06 UA pH 7.0 Last Edit by Jose De Jesus Miller [facility] on 12/30/24 13:06 UA Blood 0 Moises/uL Last Edit by Jose De Jesus Miller [facility] on 12/30/24 13:06 UA Specific [place] 1.010 Last Edit by Jose De Jesus Miller CCM on 12/30/24 13:06 UA Ketone Negative Last Edit by Jose De Jesus Miller [facility] on 12/30/24 13:06 UA Bilirubin 0 mg/dL Last Edit by Jose De Jesus Miller [facility] on 12/30/24 13:06 UA Glucose 0 mg/dL Last Edit by Jose De Jesus Miller [facility] on 12/30/24 13:06 Assessment & Plan Assessment & Plan (1) Incomplete bladder emptying: Code(s): R33.9 - Retention of urine, unspecified Category: Medical (2) Weak urinary stream: Code(s): R39.12 - Poor urinary stream Category: Medical Plan In office urinalysis results reviewed with the patient today; as noted above. PVR 56 mL. We did discussed potential causes and further treatment options of incomplete bladder emptying. All questions were answered. Stop terazosin. Start bethanechol as discussed and prescribed. We discussed attempting to double void to assist with bladder emptying. We also discussed pelvic floor therapy and or exercises; information provided. Follow-up in 3 months with PVR; or sooner with any issues, concerns, and or questions. Orders: Orders AMB Urinalysis Automated Today Z13.9 - Encounter for screening, unspecified Medications: New bethanechol chloride 50 mg PO BID 60 tabs 3RF 30 days N39.0 - Urinary tract infection, site not specified Discontinued terazosin Discontinued Reason: Doctor's Order 1 mg PO BEDTIME 30 caps 3RF 30 days R39.12 - Poor urinary stream Patient Instructions: The patient had an opportunity to ask questions regarding the treatment plan. All questions were answered. Physical exam, labs, and imaging were discussed and reviewed in detail. As well as risks, benefits, and discussion of treatment choices. No major barriers to understanding were identified. The patient expressed understanding and agreement with the above treatment plan. The patient was made aware they should contact our office by phone for worsening of their current condition, the appearance of new symptoms, or with any questions or concerns. Compliance is encouraged with any medications and follow up testing that is ordered. It is a privilege to be allowed the opportunity to participate in? your urological care.? Again, if you have any questions or concerns If you have any questions or concerns please do not hesitate to contact me. The office is [phone]. This note is constructed using voice recognition software. While every effort has been made to ensure accuracy document preparer microfilming errors may have been included. Yours sincerely, BRIAN Levin Coding Level of Care Code Est Pt Level 4 (38849) Complex EM visit Add On G2211 Diagnoses Incomplete bladder emptying R33.9 Weak urinary stream R39.12 CPT Codes Post Residual Void - PVR CPT Code: 24016-Nfgz Void Residual by ultrasound ([id number])
== END 2024-12-30 13:25 | disposition home or self-care (01) ==
LOC: HO.HUSH 12:38
PROVIDERS: PCP Nurse Practitioner Family; Visit Provider Nurse Practitioner Family
DX: R33.9 Retention of urine, unspecified (principal); R39.12 Poor urinary stream; Z13.9 Encounter for screening, unspecified
CPT/HCPCS: 99214; G2211

== ENCOUNTER 2025-01-14 07:46 | Outpatient (REF) | payer MEDICARE, SELFPAY ==
--- NOTE | ~2025-01-14 | MM_ITS ---
EXAMINATION: MM SCREENING DIGITAL BREAST TOMOSYNTHESIS, BILATERAL CLINICAL INFORMATION: Screening. Asymptomatic. COMPARISON: Comparison made to multiple prior, most recent January 09, 2024, and most remote February 21, 2019. TECHNIQUE: Digital breast tomosynthesis is performed in both the craniocaudal and mediolateral oblique views along with computer-aided detection (CAD). FINDINGS: BREAST COMPOSITION: There are scattered areas of fibroglandular density (ACR BI-RADS breast composition Category b). BILATERAL BREASTS: No significant masses, suspicious calcifications or other abnormalities are seen in either breast. MM/MM tomosynthesis screening BI IMPRESSION: BILATERAL BREASTS: Negative, no mammographic evidence of malignancy. Normal interval follow-up is recommended in 12 months. ASSESSMENT: BI-RADS 1 - Negative RECOMMENDATION: Routine annual mammography screening. FOLLOW-UP: 1 year F/U This examination should not preclude the clinical evaluation of a suspicious palpable abnormality. This patient's information was entered into a reminder system with a target due date for their next mammogram. Electronically signed by: Jesse Fleming MD 01/18/2025 08:50 PM EDT
--- OUTSIDE RECORDS SUMMARY | 2025-01-14 07:48 | XMS_ITS ---
Author Name [facility] Organization Unknown Care Team Organization Name Specialty Phone Email Start Date End Da te [facility] Termed, PROVIDER Primary Care 04/10/202201/01
--- OUTSIDE RECORDS SUMMARY | 2025-01-14 07:49 | XMS_ITS | Patient Health Record ---
Author Organization [facility] Address [address] [facility] [address] [place] [address] Care Team Providers Care Correctional Casework Specialist Name Role Phone Annette Fong Primary [...] needed Orally Three times a day Active [place] Fatty Acids-Vitamins Active DULoxetine HCl 60 MG [...] Insured Coverage Start Date Coverage End Date [facility] [address] [place] [address] [id number] Nereida Mcbride Self - patient is the [...]
--- OUTSIDE RECORDS SUMMARY | 2025-01-14 07:49 | XMS_ITS | Patient Health Record ---
Author Organization [facility] Address [address] [facility] [place] [address] Care Team Providers Care Reefer Truck Driver Name Role Phone Buddy Bolden Primary Care Provider Unav ailable Leandro Harvey Unavailable [phone] Allergies Allergen (clinical drug ingredient) Drug/Non Drug Allergy documented on EMR Reaction Allergy Type Onset Date Status pregabalin Lyrica dizziness Drug Allergy Active Reason For Referral No Information Medications Medication SIG (Take, Route, Frequency, Duration) Notes Start Date End Date Status Geodon 80 MG as directed Orally Not-Taking Claritin 10 MG 1 tablet Orally Once a day Not-Taking Flonase 50 MCG/ACT 1 spray in each nost ril Nasally Once a day Not-Taking Premarin 0.3 MG 1 tablet Orally Vira y for Three Weeks, 1 Week off Not-Taking DULoxetine HCl 30 MG 1 capsule Orally On ce a day; Duration: 30 day(s) both Not-Taking LORazepam 1 MG 1 tablet Orally Twic e a day Active Ciclopirox 0.77 % 1 application to affected area Externally Twice a day to effected nails; Duration: 30 days Active Levothyroxine Sodium Active Wellbutrin 75 MG 2 tablets Orally Thr ee times a day Not-Taking Atorvastatin Calcium 20 MG 1 tablet Orally Once a day; Duration: 30 day(s) Active buPROPion HCl ER (XL) 300 MG 1 tablet in the morning Orally Once a day; Duration: 30 day(s) 150mg Active DULoxetine HCl 60 MG 1 capsule Orally On ce a day; Duration: 30 day(s) both Active Immunizations Vaccine Route Administration Date Status Comme nts Influenza Unknown 03/03/2024 Administered COVID-19 Moderna Vaccine Unknown 10/04/2021 Administered 1st 07/19/20 2nd 08/16/20 3rd 03/25/21 Social History Tobacco Use: Social History Observation Description Date Details (start date - stop date) Current Smoker 01/01/1975 - NA Alcohol Screen Question Answer Notes Did you have a drink contain ing alcohol in the past year? Yes How often did you have 6 or more drinks on one occasion in the past year? Less than monthly (1 point) Points 1 Interpretation Negative Tobacco use other than smoking: Question Answer Notes Are you an other tobacco user? No Tobacco Control (Standard) Question Answer Notes Tobacco use: Current smoker When did you start smoking? 01/01/1975 How often do you smoke cigarettes? Every day How many cigarettes a day do you smoke? 6-10 How soon after you wake up d o you smoke your first cigarette? 6-30 minutes Are you interested in quitting? Thinking about q uitting Additional Findings: Tobacco user Modera te cigarette smoker (10-19 cigs/day) AUDIT-C (Standard) Question Answer Notes Did you have a drink containing alcohol in the p ast year? No Points 0 Interpretation Negative Problems Problem Type SNOMED Code ICD Code Onset Dates Problem Status W/U Status Risk Notes Problem Tinea unguium (153271375) Tinea unguium (B35.1) Active confirmed Response to treatment,Un resolved Vital Signs Blood pressure diastolic 65 mm Hg 01/05/2025 Height 5ft4in in 01/05/2025 Blood pressure systolic 128 mm Hg 01/05/2025 Weight 208 lbs 01/05/2025 BMI 35.7 kg/m2 01/05/2025 Procedures Procedure Date Ordered Date Performed Result Body Sit e 10687-Cvwg Destruction, 1-14 03/03/2024 N/A Encounters Encounter Location Date [facility] [address] [place] [address] 03/03/2024 Leandro Harvey Tinea unguium B35.1 ; Pain in right toe(s) M79.674 ; Pain in left toe(s) M79.675 ; Plantar wart B07.0 and Left foot pain M79.672 [facility] [address] [address] 01/05/2025 Lenadro Harvey Tinea unguium B35.1 ; Pain in right toe(s) M79.674 and Pain in left toe(s) M79.[address] [facility] [address] 06/05/2024 Leandro Harvey Assessments Encounter Date Diagnosis (ICD Code) Assessment Notes Treatment Notes Treatment Clinical Notes Section Notes 03/03/2024 Tinea unguium (ICD-10 - B35.1) Response to treatment,Unres olved 03/03/2024 Pain in right toe(s) (ICD-10 - M79.674) 01/05/2025 Tinea unguium (ICD-10 - B35.1) Response to treatment,Unres olved 01/05/2025 Pain in right toe(s) (ICD-10 - M79.674) 01/05/2025 Pain in left toe(s) (ICD-10 - M79.675) 03/03/2024 Pain in left toe(s) (ICD-10 - M79.675) 03/03/2024 Plantar wart (ICD-10 - B07.0) 03/03/2024 Left foot pain (ICD-10 - M79.672) Plan Of Treatment Pending Test Test Name Order Date 62273-Cvlh Destruction, 1-14 03/03/2024 66182- Removal of Foreign Body, Subcut 1 50,U9401-TFM TENDON SHEATH/LIGAMENT 1 50,Z6402-TSI TENDON SHEATH/LIGAMENT 0 02/15/201488638,G1258-DLH TENDON SHEATH/LIGAMENT 0 02/23/201495981,B8235-UMQ TENDON SHEATH/LIGAMENT 1 Next Appt Details Provider Name:Leandro Harvey , 04/23/2025 08:45:00 AM, [address] [place] [address], [phone], Insurance Providers Payer Name Payer Address Payer Phone Subscriber Number Group Number Insured Name Patient Relationship to Insured Coverage Start Date Coverage End Date Medicare National Govt Svcs Inc [address] [place] [address] [id number] Nereida Mcbride Self - patient is the insured [employer] [address] [place] [address] [phone] [id number] Nereida Mcbride Self - patient is the insured Medical (General) History Medical History History ICD Code Anxiety Arthritis Back,Hip,and Knee pain sinusitis Measles Mumps Chicken pox Joint implants/screws CAD (Cholesterol) Depression Surgical History Surgery Date(Month/Year) rods in both shoulders Left SQ Plantar Fibroma/S.T. Mass (Unspe c) 09/2014 rotator cuff 2006 colonoscopy
== END 2025-01-14 07:47 | disposition home or self-care (01) ==
LOC: HO.MAMMO 07:46
PROVIDERS: Visit Provider Nurse Practitioner Family
DX: Z12.31 Encounter for screening mammogram for malignant neoplasm of breast (principal)
CPT/HCPCS: 77063; 77067

== ENCOUNTER → 2025-01-14 08:00 | Outpatient (BNV) | payer MEDICARE, SELFPAY | PROVIDERS: Visit Provider Radiology Body Imaging | DX: Z12.31 Encounter for screening mammogram for malignant neoplasm of breast (principal) | CPT/HCPCS: 77063; 77067 ==

== ENCOUNTER 2025-01-25 06:54 | Outpatient (REF) | payer MEDICARE, SELFPAY ==
--- OUTSIDE RECORDS SUMMARY | 2024-06-05 05:15 | XMS_ITS ---
Author Organization [facility] Address [address] [place] [address] Care Team Providers Care Supervisor Inspection Room Name Role Phone Buddy Bolden Primary Care Provider Unav ailable Leandro Harvey Unavailable [phone] Allergies Allergen (clinical drug ingredient) Drug/Non Drug [...] Active Encounters Encounter Location Date Provider Diagnosis [facility] [address] [address] 06/05/2024 Leandrochrissy Hellerier Plan Of Treatment Next Appt Details Provider Name:Leandro Harvey , 04/23/2025 08:45:00 AM, [address] [place], [address], Progress Notes * Nereida MCBRIDE ADOB:[birth year] (69 yo F)Acc No.[id number]:06/05/2024 Progress Note Patient: Nereida ARRIOLA Provider: Beth Harvey DPM :1955 A ge:69 Y S ex:Female Date:06/05/2024 Address:[address] [place], [place] [id number] Pcp:Buddy Shaw NP-ALLEN Subjective: * Chief Complaints: [...] 0 06/05/2024 Generated for Gale rogers/Anais/Cassie on: 0 01/25/2025 06:57 AM EDT
--- OUTSIDE RECORDS SUMMARY | 2025-01-25 06:57 | XMS_ITS | Encounter Summary ---
Author Organization [employer] [facility] Address [address] [place] [address] Care Team Providers Care Human Resources Executive Assistant Name Role Phone Celina Mann DO Primary Care Pro vider Unavailable Mercedes Han MD Primary Care Provider [phone] Callum Hernandez DO Primary Care Provider Lopez Lu MD Primary Care Provider Buddy Foy NP Primary Care Provider Unavail able [facility], Pcp Primary Care Provider UnavailBuddy Stephen NP Primary Care Provider Unavail able Reason for Visit * Reason Comments E-prescribe Rx Request Encounter Details Date Type Department Care Team Description 10/07/2017 Refill Adult Medicine [address] [address] Celina Mann DO E-prescribe Rx Request Social [...] an upcoming appointment? No-[facility] to refill request. Appt due (THE MEDICATION REQUESTED IS ON THE MED LIST ABOVE) All of the medications requested were on the CURRENT MEDS list Did you check the Pharmacy information above?: YES Patient wants: 30 -day supply Is this a mail order prescription request ? NO Patients current insurance carrier is: Payor: [employer] / Plan: [employer] $20 [employer]iv[employer]HELLE[employer]aviar [id number] / Product Type: InventergyO Myb-mkf-Uxhuvaj documented in this encounter Plan of Treatment Not on file documented as of this encounter Visit Diagnoses Not on filedocumented in this encounter Care Teams Human Resources Executive Assistant Relationship Specialty Start Date End Date Celina Mann DO PCP - General Internal Medicine 03/21/16 11/23/20 Mercedes Han MD [address] [place] [address] PCP - General Internal Medicine 11/24/20 01/11/21 Callum Hernandez DO [address] [place] [address] PCP - General Internal Medicine 01/12/21 03/19/21 Lopez Brennan MD [address] [place] [address] PCP - General Internal Medicine 03/20/21 10/19/21 Buddy Shaw NP [address] [place] [address] PCP - General Family Practice 10/20/21 01/04/22 Jan Infante [address] [place] [address] PCP - General Internal Medicine 01/05/22 11/28/22 Buddy Shaw NP [address] [place] [address] PCP - General Family Practice 11/29/22 documented as of this encounter
--- OUTSIDE RECORDS SUMMARY | 2025-01-25 06:57 | XMS_ITS | Patient Health Record ---
Author Organization [facility] Address [address] [facility] [address] [place] [address] Care Team Providers Care Production Team Member Name Role Phone Annette Fong Primary Care [...] needed Orally Three times a day Active [place] Fatty Acids-Vitamins Active DULoxetine HCl 60 MG [...] Insured Coverage Start Date Coverage End Date [facility] [address] [facility] [address] [place] [address] [id number] Nereida Mcbride Self - patient is the [...]
--- OUTSIDE RECORDS SUMMARY | 2025-01-25 06:57 | XMS_ITS | Clinical Summary ---
Author Organization [employer] [facility] Address [address] [place] [address] Care Team Providers Care Director Sales And Trade Marketing Name Role Phone Buddy Shaw NP Primary [...] Recently Relevant to Health Maintenance Care Teams Director Sales And Trade Marketing Relationship Specialty Start Date End Date Buddy Shaw, [facility]UL [address] [facility] [place] PCP - General 11/29/22
[2025-01-25 07:12] LABS: MANUAL DIFF FLAG NO
[2025-01-25 07:52] LABS: Hematocrit 44.3 % (37.0-47.0); Hemoglobin 14.8 g/dl (12.0-16.0); Imm Gran Abs Auto 0.02 X10*3/uL (0.00-0.03); Imm Gran Pct Auto 0.3 % (0.0-0.4); Lymphocytes Absolute Auto 2.0 X10*3/uL (1.2-4.9); Mean Corpuscular HGB Conc 33.4 g/dl (31.0-35.0); Mean Corpuscular Hemoglobin 31.7 pg (27.0-33.0); Mean Corpuscular Volume 94.9 fL (80.0-98.0); NRBC Abs Auto 0.000 X10*3/uL (0.0-0.012); NRBC Pct Auto 0.0 /100WBC (0.0-0.2); Platelet Count 273 X10*3/uL (160-400); Red Blood Count 4.67 X10*6/uL (4.20-5.50); White Blood Count 7.0 X10*3/uL (4.8-10.8)
[2025-01-25 08:19] LABS: Appearance Urine Clear; Glucose Urine UA Negative (Negative); PH 6.5 (5.0-9.0); Specific Gravity - Urine 1.015 (1.005-1.025); UMIC TRIGGER UACC YES
[2025-01-25 08:25] LABS: Alanine Aminotransferase 21 U/L (0-31); Albumin Level 4.5 g/dL (3.5-5.0); Alkaline Phosphatase 94 U/L (39-117); Anion Gap 14 (12-20); Aspartate Amino Transferase 22 U/L (5-31); Blood Urea Nitrogen 18 mg/dL (9-16); Calcium 9.5 mg/dL (8.4-10.2); Carbon Dioxide 28 mmol/L (22-29); Chloride 105 mmol/L (96-108); Cholesterol 167 mg/dL (<200); Estimated Glomerular Filt Rate > 60; HDL Cholesterol 57 mg/dL (>40); Potassium 4.8 mmol/L (3.3-5.1); Sodium 142 mmol/L (135-145); Total Protein 7.4 g/dL (6.5-8.0); Triglycerides 81 mg/dL (<150)
[2025-01-25 08:40] LABS: HBS Num1 0.80 mIU/mL (0-7.99); HBc Num1 0.19 S/CO (0.00-0.79); HBsAGNum1 0.42 S/CO (0.00-0.99); Hepatitis A Antibody IgM 0.21 Index (0-0.79); Hepatitis B Surface Antigen Negative (Negative); ~HepC Num1 0.09 S/CO (0.00-0.79); ~Hepatitis A Antibody IgM Nonreactive (Nonreactive); ~Hepatitis B Surface Antibody NONREACTIVE (Nonreactive); ~Hepatitis C Antibody Nonreactive (Nonreactive)
[2025-01-25 09:23] LABS: Free T4 (Free Thyroxine) 0.95 ng/dL (0.71-1.85)
== END 2025-01-25 06:55 | disposition home or self-care (01) ==
LOC: HO.LAB 06:54
PROVIDERS: PCP Nurse Practitioner Family; Visit Provider Nurse Practitioner Family
DX: E78.5 Hyperlipidemia, unspecified (principal); E55.9 Vitamin D deficiency, unspecified; Z28.39 Other underimmunization status
CPT/HCPCS: 36415; 80053; 80061; 81001; 81003; 82306; 84439; 84443; 85025; 86704; 86706; 86709; 86803; 87340

== ENCOUNTER 2025-02-22 13:32 | Outpatient (REF) | payer MEDICARE, SELFPAY ==
[2025-02-22 14:44] LABS: Appearance Urine Clear; Glucose Urine UA Negative (Negative); PH 6.0 (5.0-9.0); Specific Gravity - Urine 1.015 (1.005-1.025)
--- OUTSIDE RECORDS SUMMARY | 2025-02-22 16:01 | XMS_ITS | Patient Health Record ---
Author Organization [facility] Address [address] [address] Care Team Providers Care Pivot End Polisher Name Role Phone Annette Fong Primary Care Provi celestine Unavailable Allergies Allergen (clinical drug
== END 2025-02-22 13:33 | disposition home or self-care (01) ==
LOC: HO.LAB 13:32
PROVIDERS: PCP Nurse Practitioner Family; Visit Provider Nurse Practitioner Family
DX: R79.89 Other specified abnormal findings of blood chemistry (principal); R33.9 Retention of urine, unspecified; Z13.29 Encounter for screening for other suspected endocrine disorder
CPT/HCPCS: 36415; 81003; 84443

== ENCOUNTER 2025-04-07 08:20 | Outpatient (AMB) | payer MEDICARE, SELFPAY ==
--- OUTSIDE RECORDS SUMMARY | 2024-03-10 03:45 | XMS_ITS ---
Author Organization [facility] Address [address] [place] [address] Care Team Providers Care Design Painter Name Role Phone Buddy Bolden Primary Care Provider Unav ailable Leandro Harvey Unavailable [phone] Martinez Encounters Encounter Location Date Provider Diagnosis [address] [address] 03/10/2024 Leandro Harvey Plan Of Treatment Next Appt Details Provider Name:Leandro Harvey , 04/23/2025 08:45:00 AM, [address] [place], [address], Progress Notes * Nereida MCBRIDE ADOB:[birth year] (70 yo F)Acc No.[id number]:03/10/2024 Progress Note Patient: Nereida ARRIOLA Provider: Beth Harvey DPM :1955 A ge:69 Y S ex:Female Date:03/10/2024 Address:[address] [id number] Pcp:DEB Mcclure Subjective: * Chief Complaints: * [address] Martinez[address] * Medical History: Objective: * Vitals: Assessment: Plan: * Treatment: * Images: * The named appointment provid er may or may not be the originator of this progress note, and it is not deemed complete until electronically signed by the appointment provider. Sign off status: Pending * Provider: Beth Harvey DPM Date: Generated for Gale Cabrales on: 06/07/2024 08:29 AM EST
--- OUTSIDE RECORDS SUMMARY | 2024-06-05 04:15 | XMS_ITS ---
Author Organization [facility] Address [address] [facility] [place] [address] Care Team Providers Care Animal Control Specialist Name Role Phone Buddy Bolden Primary Care Provider Unav ailable Leandro Harvey Unavailable [phone] Allergies Allergen (clinical drug ingredient) Drug/Non Drug [...] Active Encounters Encounter Location Date Provider Diagnosis [facility] [address] [address] 06/05/2024 Leandrochrissy Hellerier Plan Of Treatment Next Appt Details Provider Name:Leandro Harvey , 04/23/2025 08:45:00 AM, [address] [place], [address], Progress Notes * Nereida MCBRIDE ADOB:[birth year] (70 yo F)Acc No.[id number]:06/05/2024 Progress Note Patient: Nereida ARRIOLA Provider: Beth Harvey DPM :1955 A ge:69 Y S ex:Female Date:06/05/2024 Address:[address] [place], [place] [id number] Pcp:Buddy Shaw NP-ALLEN Subjective: * Chief Complaints: [...] 0 06/05/2024 Generated for Gale rogers/Anais/Cassie on: 06/07/2024 08:29 AM EST
--- NOTE | 2025-04-07 08:28 | MHC.OFFVIS ---
Intake Visit Reasons: 3m/PVR Intake Note: Patient is present for 3M/PVR Urology Medication:BETHANECHOL Antibiotic Allergy:NONE Blood Thinner:NONE Last PVR:35ML'S Todays PVR:0ML'S [place] Planning Manager Required: No Allergies No Known Allergies (No Known Allergies*) Allergy (Verified 04/07/25 09:03) Medication List - Last Reconciled 04/07/25 by LESVIA Levin-ALLEN albuterol sulfate 90 mcg/actuation (Ventolin HFA) 2 puffs inhalation Q4-6H PRN atorvastatin 20 mg PO DAILY 90 days bethanechol chloride 50 mg PO BID 30 days bupropion HCl XL 150 mg PO QAM duloxetine 60 mg PO DAILY fluconazole 150 mg PO Q3D 2 doses levothyroxine 50 mcg PO DAILY lorazepam 0.5 mg PO BID PRN omeprazole 20 mg PO DAILY sulfamethoxazole-trimethoprim 800-160 mg (Bactrim DS) 1 tab PO BID 7 days terazosin 1 mg PO BEDTIME 30 days ziprasidone HCl 20 mg PO DAILY HPI Comments Details: Nereida Keller is a very pleasant 70-year-old female patient of Dr. Shaw. She has a past medical history of arthritis, SVT, sleep apnea, GERD, hypercholesteremia, depression, anxiety, chronic pain syndrome, and sacroiliitis. She presents to the office today for a follow up of her incomplete bladder emptying. In discussion with the patient today she reports she initiated bethanechol as prescribed during last office visit however started experiencing severe abdominal pain and has since discontinued the medication. She reports she restarted terazosin however has not found this helpful. She reports since her last office visit here she had been experiencing UTI like symptoms at which time a urine culture was obtained however no growth was noted. UTI like symptoms persisted in a microgen was then collected. Microgen 03/27 noted 99% Ecoli. She has since completed Bactrim therapy as prescribed. She currently denies any UTI like symptoms however she does continue to experience issues with incomplete bladder emptying, weak urinary stream, and nocturia. Previous workup has included a retroperitoneal ultrasound 04/25 noting bilateral kidneys with no calculi or hydronephrosis noted. The bladder is well distended. Bilateral ureteral jets are demonstrated. Pre void bladder volume is approximately 380 mL. Postvoid bladder volume is approximately 75 mL. She denies hematuria, dysuria, foul smelling urine, flank pain, fever, and or chills. We did discussed potential causes of lower urinary tract symptoms patient is experiencing as well as further treatment options we did discuss in office urodynamics verses trial of InterStim. We did discuss risks and benefits of these interventions. All questions were answered. She otherwise offers no other issues or concerns at this time. [facility] Medical History Allergic rhinitis Chronic pain syndrome SVT (supraventricular tachycardia) Elevated cholesterol Obstructive sleep apnea of adult Nicotine dependence, cigarettes, uncomplicated Osteopenia GERD (gastroesophageal reflux disease) Tubular adenoma Depression with anxiety Sacroiliitis Arthritis Swelling of knee joint, left Tardive dyskinesia Surgical History History of colonoscopy History of hysterectomy History of rotator cuff surgery History of hand surgery History of cardiac radiofrequency ablation (RFA) Family History Father Mental health disorder Paternal Grandfather Mental health disorder Daughter Mental health disorder Mother Lung cancer Social History Household Members Other:: daughter Housing: House Are you a primary customer care representative to a significant other at home: No Do you presently have visiting nurse or other home services: No Patient Tobacco Use Status: Current everyday Tobacco user Tobacco use type: Cigarette Years Smoked: (onset 17yo, 1/2-1ppd x 50yrs, 35pyh) e-Cigarette/Vaping Use: Never Used Second Hand Smoke Exposure: No service: No Current occupational status: retired Current occupation: works part [employer] Current occupational exposures/hazards: No Cognitive needs: No Hearing needs: No Vision needs: Yes Review of Systems Const Reports as per HPI Eyes Reports no additional complaints ENT Reports no additional complaints Card Reports as per HPI Resp Reports as per HPI GI Reports as per HPI Reports as per HPI Musc Reports as per HPI Neuro Reports no additional complaints Psych Reports as per HPI Endo Reports no additional complaints Claudio/Lymph Reports no additional complaints Aller/Immun Reports no additional complaints Physical Exam Const General: cooperative, healthy appearing, comfortable, no acute distress, well developed, alert and awake Nutritional Appearance: overweight Orientation/consciousness: patient oriented x3 Limitations: no limitations HEENT Head: Yes normal to inspection, Yes normocephalic and Yes atraumatic Ears: hearing grossly normal bilaterally Eyes General: appearance normal, both eyes and all related structures Neck Neck: Yes normal visual inspection and Yes trachea midline Chest Chest palpation & inspection: normal inspection of the chest Resp Effort & Inspection: normal respiratory effort and able to speak in complete sentences Cardio Rate: regular rate GI Inspection: Yes normal to inspection General: Yes no CVA tenderness Back/Spine/Pelvis Back: no CVA tenderness Skin General skin exam: no rashes or lesions noted Neuro General: patient oriented x3 Extrem General: Yes normal to inspection Psych Appearance: grossly normal and well kempt Mental Status: mental status grossly normal Speech and movement: Normal speech and movement present and Clear speech present Affect: normal affect Attitude: cooperative Thought process: Normal thought process present Thought content: Normal thought content present Insight: Fair insight present (Psych) Judgement: Fair judgement present (Psych) Office Procedures Post Void Residual Post Residual Void Post Void Residual (PVR): 0 24416-[id number] Void Residual by ultrasound Results AMB Urinalysis, Automated UA Leukoctes 0 Karime/uL Last Edit by ISIDRO Casas on 04/07/25 09:06 UA Nitrite Negative Last Edit by ISIDRO Casas on 04/07/25 09:06 UA Urobilinogen 0.2 mg/dL Last Edit by ISIDRO Casas on 04/07/25 09:06 UA Protein 0 mg/dL Last Edit by ISIDRO Casas on 04/07/25 09:06 UA pH 6.0 Last Edit by ISIDRO Casas on 04/07/25 09:06 UA Blood 0 Moises/uL Last Edit by ISIDRO Casas on 04/07/25 09:06 UA Specific [place] 1.010 Last Edit by ISIDRO Casas on 04/07/25 09:06 UA Ketone Negative Last Edit by ISIDRO Casas on 04/07/25 09:06 UA Bilirubin 0 mg/dL Last Edit by ISIDRO Casas on 04/07/25 09:06 UA Glucose 0 mg/dL Last Edit by ISIDRO Casas on 04/07/25 09:06 Results Reviewed Results Reviewed: Laboratory Last Values Urine pH (Auto) 6.0 04/07/25 09:05 Specific [place] (Auto) 1.010 04/07/25 09:05 Urine Protein (Auto) 0 mg/dL 04/07/25 09:05 Glucose (UA)(Auto) 0 mg/dL 04/07/25 09:05 Urine Ketones (Auto) Negative 04/07/25 09:05 Urine Blood (Auto) 0 Moises/uL 04/07/25 09:05 Urine Nitrite (Auto) Negative 04/07/25 09:05 Urine Bilirubin (Auto) 0 mg/dL 04/07/25 09:05 Urine Urobilinogen (Auto) 0.2 mg/dL 04/07/25 09:05 Leukocyte Esterase (Auto) 0 Karime/uL 04/07/25 09:05 Assessment & Plan Assessment & Plan (1) Hematuria: Code(s): R31.9 - Hematuria, unspecified Category: Medical (2) Incomplete bladder emptying: Code(s): R33.9 - Retention of urine, unspecified Category: Medical (3) Dysuria: Code(s): R30.0 - Dysuria Category: Medical (4) Weak urinary stream: Code(s): R39.12 - Poor urinary stream Category: Medical (5) Nocturia: Code(s): R35.1 - Nocturia Category: Medical (6) Urinary tract infection: Code(s): N39.0 - Urinary tract infection, site not specified Category: Medical Plan: Risks, benefits and alternatives to therapy were discussed. These include but are not limited to infection, bleeding, damage to local organs and tissues, need for further interventions. ? Anesthetic risks regarding cardiac arrhythmia, blood clots, and potential mortality were discussed. The patient understands the typical recovery time and the outpatient nature of the procedure. After consideration of these risks the patient gives full informed consent and they wish to move ahead with the procedure. Plan In office urinalysis results reviewed with the patient today; as noted above. PVR 0 mL. We did discussed at length potential causes of lower urinary tract symptoms patient is experiencing as well as further treatment options and risks and benefits of these treatment options. We did discuss InterStim verses obtaining in office urodynamics for further assessment evaluation. Start Estrace cream as discussed and prescribed. Will obtain sleep study for further assessment evaluation. She currently denies any UTI like symptoms. All questions were answered. Will schedule for InterStim as discussed. Follow-up per doctor's orders; or sooner with any issues, concerns, and or questions. Orders: Orders AMB Urinalysis Automated Today Z13.9 - Encounter for screening, unspecified RT home sleep study Today R35.1 - Nocturia Medications: New estradiol 0.01%(0.1mg/gram) Apply a pea-sized amount to urethra daily x1 month and then 3 times per week thereafter 42.5 grams 0RF 30 days R32 - Unspecified urinary incontinence Discontinued sulfamethoxazole-trimethoprim 800-160 mg (Bactrim DS) Discontinued Reason: Patient Completed Course 1 tab PO BID 7 days 14 tabs 0RF N39.0 - Urinary tract infection, site not specified bethanechol chloride Discontinued Reason: Patient Completed Course 50 mg PO BID 30 days 60 tabs 3RF N39.0 - Urinary tract infection, site not specified Patient Instructions: The patient had an opportunity to ask questions regarding the treatment plan. All questions were answered. Physical exam, labs, and imaging were discussed and reviewed in detail. As well as risks, benefits, and discussion of treatment choices. No major barriers to understanding were identified. The patient expressed understanding and agreement with the above treatment plan. The patient was made aware they should contact our office by phone for worsening of their current condition, the appearance of new symptoms, or with any questions or concerns. Compliance is encouraged with any medications and follow up testing that is ordered. It is a privilege to be allowed the opportunity to participate in? your urological care.? Again, if you have any questions or concerns If you have any questions or concerns please do not hesitate to contact me. The office is [phone]. This note is constructed using voice recognition software. While every effort has been made to ensure accuracy licensed occupational therapist errors may have been included. Yours sincerely, BRIAN Levin Coding Level of Care Code Est Pt Level 4 (18402) Complex EM visit Add On G2211 Diagnoses Hematuria R31.9 Incomplete bladder emptying R33.9 Dysuria R30.0 Weak urinary stream R39.12 Nocturia R35.1 Urinary tract infection N39.0 CPT Codes Post Residual Void - PVR CPT Code: 84395-[id number] Void Residual by ultrasound ([id number])
--- OUTSIDE RECORDS SUMMARY | 2025-04-07 08:29 | XMS_ITS | Clinical Summary ---
Author Organization [facility] Address [address] [place] [address] Care Team Providers Care Metal Patternmaker Apprentice Name Role Phone Buddy Shaw NP Primary [...] Health Maintenance Due Date Last Done Comments Colorectal Cancer Screening: Colonoscopy 1957 Pneumococcal Vaccine: 50+ Years (1 of 2 - PCV) 02/21/1976 Zoster Vaccines (1 of 2) 2007 DTaP,Tdap,and Td Vaccines (3 - Td or Tdap) 03/20/2020 03/20/2010, 04/26/1999 Cholesterol Screening (Lipid Panel) 05/12/2022 Falls Risk Assessment 05/12/2022 Hepatitis C Screening 05/12/2022 Osteoporosis Screening (Bone Density Screening) 05/12/2022 Social Influencers of Health Screening 05/12/2022 Breast Cancer Screening 11/29/2023 11/29/19, 09/17/2020, 02/21/2019, Additional history exists Depression Screening 06/03/2024 COVID-19 Vaccine ( season) 2025 10/04/2021, 07/25/2020 Influenza Vaccine (#1) 2025 0, 02/10/2018, 02/22/2017, [...] Recently Relevant to Health Maintenance Care Teams Metal Patternmaker Apprentice Relationship Specialty Start Date End Date Buddy Shaw, MUKUL [address] [facility] [place] PCP - General 11/29/22
--- OUTSIDE RECORDS SUMMARY | 2025-04-07 08:30 | XMS_ITS | Patient Health Record ---
Author Organization [facility] Address [address] [place] [address] Care Team Providers Care Baby Stroller Rental Clerk Name Role Phone Buddy Bolden Primary Care Provider Unav ailable Leandro Harvey Unavailable [phone] Allergies Allergen (clinical drug ingredient) Drug/Non Drug [...] W/U Status Risk Notes Problem Tinea unguium (280713557) Tinea unguium (B35.1) Active confirmed Response to treatment,Un resolved Vital Signs Blood pressure diastolic 65 mm Hg 01/05/2025 Height 5ft4in in 01/05/2025 Blood pressure systolic 128 mm Hg 01/05/2025 Weight 208 lbs 01/05/2025 BMI 35.7 kg/m2 01/05/2025 Encounters Encounter Location Date Provider Diagnosis [facility] [place] [address] [place] [address] 01/05/2025 Leandro Harvey Tinea unguium B35.1 ; Pain in right toe(s) M79.674 and Pain in left toe(s) M79.675 [facility] [address] [place] [address] 06/05/2024 Leandro Harvey Assessments Encounter Date Diagnosis (ICD Code) Assessment Notes Treatment Notes Treatment Clinical Notes Section Notes 01/05/2025 Tinea unguium (ICD-10 - B35.1) Response to treatment,Unres olved 01/05/2025 Pain in right toe(s) (ICD-10 - M79.674) 01/05/2025 Pain in left toe(s) (ICD-10 - M79.675) Plan Of Treatment Pending Test Test Name Order Date [id number] Destruction, 1-14 03/03/2024 42938- Removal of Foreign Body, Subcut 1 50,[id number] TENDON SHEATH/LIGAMENT 1 50,[id number] TENDON SHEATH/LIGAMENT 0 02/15/201450947,[id number] TENDON SHEATH/LIGAMENT 0 02/23/201422536,[id number] TENDON SHEATH/LIGAMENT 1 Next Appt Details Provider Name:Leandro Harvey , 04/23/2025 08:45:00 AM, [address] [place], [address], Insurance Providers Payer Name Payer Address Payer Phone Subscriber Number Group Number Insured Name Patient Relationship to Insured Coverage Start Date Coverage End Date Medicare [facility] [address] [place] [address] [id number] Rae Nereida Self - patient is the insured [employer] [address] [place] [address] [id number] Rae Nereida Self - patient is the insured Medical (General) History Medical History History ICD Code Anxiety Arthritis Back,Hip,and Knee pain sinusitis Measles Mumps Chicken pox Joint implants/screws CAD (Cholesterol) Depression Surgical History Surgery Date(Month/Year) rods in both shoulders Left SQ Plantar Fibroma/S.T. Mass (Unspe c) 09/2014 rotator cuff 2006 colonoscopy
--- OUTSIDE RECORDS SUMMARY | 2025-04-07 08:30 | XMS_ITS | Patient Health Record ---
Author Organization [facility] Address [address] [facility] [address] [place] [address] Care Team Providers Care Auto Body Service Mechanic Name Role Phone Annette Fong Primary Care [...] needed Orally Three times a day Active [place] Fatty Acids-Vitamins Active DULoxetine HCl 60 MG 1 capsule Orally On ce a day Active Multivitamin Active Problems Problem Type SNOMED Code ICD Code Onset Dates Problem Status W/U Status Risk Notes Problem Polyneuropathy (77042455) Other specified polyneuropathies (G62.89) Active confirmed Plan Of Treatment No Information Insurance Providers Payer Name Payer Address Payer Phone Subscriber Number Group Number Insured Name Patient Relationship to Insured Coverage Start Date Coverage End Date [facility] [address] [place] [address] [phone] [id number] Nereida Mcbride Self - patient is the [...]
== END 2025-04-07 09:12 | disposition home or self-care (01) ==
LOC: HO.HUSH 08:21
PROVIDERS: Visit Provider Nurse Practitioner Family
DX: R31.9 Hematuria, unspecified (principal); R33.9 Retention of urine, unspecified; R30.0 Dysuria; R39.12 Poor urinary stream; R35.1 Nocturia; N39.0 Urinary tract infection, site not specified; Z13.9 Encounter for screening, unspecified
CPT/HCPCS: 99214; G2211

== ENCOUNTER → 2025-04-07 08:20 | Outpatient (BNVA) | payer MEDICARE, SELFPAY | PROVIDERS: Visit Provider Nurse Practitioner Family | DX: R33.9 Retention of urine, unspecified (principal); R30.0 Dysuria; R39.12 Poor urinary stream; R31.9 Hematuria, unspecified; R35.1 Nocturia; R39.0 Extravasation of urine; Z72.0 Tobacco use | CPT/HCPCS: 51798; 81003; 99212 ==

== ENCOUNTER 2025-04-14 07:17 | Outpatient (REF) | payer MEDICARE, SELFPAY ==
--- OUTSIDE RECORDS SUMMARY | 2024-03-10 03:45 | XMS_ITS ---
Author Organization [facility] Address [address] [place] [address] Care Team Providers Care Horse Trader Name Role Phone Buddy Bolden Primary Care Provider Unav ailable Leandro Harvey Unavailable [phone] Martinez Encounters Encounter Location Date Provider Diagnosis [address] [address] 03/10/2024 Leandro Harvey Plan Of Treatment Next Appt Details Provider Name:Leandro Harvey , 04/23/2025 08:45:00 AM, [address] [place], [address], Progress Notes * Nereida MCBRIDE ADOB:[birth year] (70 yo F)Acc No.[id number]:03/10/2024 Progress Note Patient: Nereida ARRIOLA Provider: Beth [...] DPM Date: Generated for Gale Cabrales on: 06/14/2024 07:20 AM EST
--- OUTSIDE RECORDS SUMMARY | 2024-06-05 04:15 | XMS_ITS ---
Author Organization [facility] Address [address] [facility] [place] [address] Care Team Providers Care Director Of Planning Name Role Phone Buddy Bolden Primary Care Provider Unav ailable Leandro Harvey Unavailable [phone] Allergies Allergen (clinical drug ingredient) Drug/Non Drug Allergy documented on EMR Reaction Allergy Type Onset Date Status pregabalin Lyrica dizziness Drug Allergy Active Medications Medication SIG (Take, Route, Frequency, Duration) Notes Start Date End Date Status Premarin 0.3 MG 1 tablet Orally Vira y for Three Weeks, 1 Week off Not-Taking Wellbutrin 75 MG 2 tablets Orally Thr ee times a day Not-Taking Claritin 10 MG 1 tablet Orally Once a day Not-Taking Flonase 50 MCG/ACT 1 spray in each nost ril Nasally Once a day Not-Taking Geodon 80 MG as directed Orally Not-Taking buPROPion HCl ER (XL) 300 MG 1 tablet in the morning Orally Once a day; Duration: 30 day(s) Active DULoxetine HCl 30 MG 1 capsule Orally On ce a day; Duration: 30 day(s) both Not-Taking Ciclopirox 0.77 % 1 application to affected area Externally Twice a day to effected nails; Duration: 30 days Active DULoxetine HCl 60 MG 1 capsule Orally On ce a day; Duration: 30 day(s) both Active LORazepam 1 MG 1 tablet Orally Twic e a day Active Atorvastatin Calcium 20 MG 1 tablet Orally Once a day; Duration: 30 day(s) Active Levothyroxine Sodium Active Encounters Encounter Location Date Provider Diagnosis [facility] [address] [address] 06/05/2024 Leandrochrissy Hellerier Plan Of Treatment Next Appt Details Provider Name:Leandro Harvey , 04/23/2025 08:45:00 AM, [address] [place], [address], Progress Notes * Nereida MCBRIDE ADOB:[birth year] (70 yo F)Acc No.[id number]:06/05/2024 Progress Note Patient: Nereida ARRIOLA Provider: Beth Harvey DPM :1955 A ge:69 Y S ex:Female Date:06/05/2024 Address:[address] [place], [place] [id number] Pcp:Buddy Shaw NP-ALLEN Subjective: * Chief Complaints: * * Medical History: A nxiety, Arthritis, Back,Hip,and Knee pain, sinusitis, Measles, Mumps, Chicken pox, Joint implants/screws, CAD (Cholesterol), Depression. * Medications: T aking Levothyroxine Sodium , Taking Atorvastatin Calcium 20 MG Tablet 1 tablet Orally Once a day , Taking buPROPion HCl ER (XL) 300 MG Tablet Extended Release 24 Hour 1 tablet in the morning Orally Once a day , Taking DULoxetine HCl 60 MG Capsule Delayed Release Particles 1 capsule Orally Once a day , Notes to Pharmacist: both, Taking LORazepam 1 MG Tablet 1 tablet Orally Twice a day , Taking Ciclopirox 0.77 % Gel 1 application to affected area Externally Twice a day to effected nails , Not-Taking/PRN DULoxetine HCl 30 MG Capsule Delayed Release Particles 1 capsule Orally Once a day , Notes to Pharmacist: both, Not-Taking/PRN Geodon 80 MG Capsule as directed Orally , Not-Taking/PRN Claritin 10 MG Tablet 1 tablet Orally Once a day , Not-Taking/PRN Flonase 50 MCG/ACT Suspension 1 spray in each nostril Nasally Once a day , Not-Taking/PRN Premarin 0.3 MG Tablet 1 tablet Orally Daily for Three Weeks, 1 Week off , Not-Taking/PRN Wellbutrin 75 MG Tablet 2 tablets Orally Three times a day * Allergies: L yrica: dizziness. Objective: * Vitals: Assessment: Plan: * Treatment: * Images: * The named appointment provid er may or may not be the originator of this progress note, and it is not deemed complete until electronically signed by the appointment provider. Sign off status: Pending * Provider: Beth Harvey DPM Date: 0 06/05/2024 Generated for Gale rogers/Anais/Cassie on: 06/14/2024 07:19 AM EST
--- NOTE | ~2025-04-14 | CT_ITS ---
EXAMINATION: CT LUNG SCREENING HISTORY: F17.210 - Nicotine dependence, cigarettes, uncomplicated TECHNIQUE: Low dose axial images were obtained from the sternal notch to upper abdomen without IV contrast per standard departmental protocol. Sagittal and coronal reformatted images were also obtained and reviewed. One or more of the following techniques was used for dose reduction: Automated exposure control, adjustment of the mA and/or kV according to patient size, use of iterative reconstruction technique. DLP: 52 mGy-cm COMPARISON: Previous chest CT March 2024 FINDINGS: Lung nodules: Stable 2 mm perifissural right middle lobe nodule axial image 54 series 6. No new or increasing pulmonary nodule. Central airways are clear. Minimal linear scarring or subsegmental atelectasis in the anterior left upper lobe Emphysema: mild Coronary Calcification: mild Aortic Arch Calcification: mild Potentially Significant Incidentals : none Additional Chest Findings: Normal heart size. There is no pleural or pericardial effusion. No mediastinal or axillary lymphadenopathy is identified. Thyroid gland not well seen. No chest wall mass or axillary adenopathy. Visualized upper abdomen: The visualized portions of the liver, spleen, and adrenals have an unremarkable unenhanced appearance. Degenerative changes of the thoracic spine. Surgical tacks or anchors in both humeral heads. Mild degenerative changes of the shoulders. CT/CT lung screening IMPRESSION: Mild emphysema. Stable right perifissural nodule probably representing a peripheral or subpleural lymph node. LUNG-RADS ASSESSMENT: Lung-RADS 2: Benign MANAGEMENT: Continue annual screening with LDCT in 12 months Category S: N/A Electronically signed by: Lisa Mar MD 04/14/2025 09:11 AM [facility]
--- OUTSIDE RECORDS SUMMARY | 2025-04-14 07:19 | XMS_ITS | Patient Health Record ---
Author Organization [facility] Address [address] [facility] [place] [address] Care Team Providers Care Accounting Consultant Name Role Phone Buddy Bolden Primary Care Provider Unav ailable Leandro Harvey Unavailable [phone] Allergies Allergen (clinical drug ingredient) Drug/Non Drug [...] W/U Status Risk Notes Problem Tinea unguium (741686674) Tinea unguium (B35.1) Active confirmed Response to treatment,Un resolved Vital Signs Blood pressure diastolic 65 mm Hg 01/05/2025 Height 5ft4in in 01/05/2025 Blood pressure systolic 128 mm Hg 01/05/2025 Weight 208 lbs 01/05/2025 BMI 35.7 kg/m2 01/05/2025 Encounters Encounter Location Date Provider Diagnosis [facility] [place] [address] [place] [address] 01/05/2025 Leandro Harvey Tinea unguium B35.1 ; Pain in right toe(s) M79.674 and Pain in left toe(s) M79.675 [facility] [address] [place] [address] 06/05/2024 Leandro Harvey Assessments Encounter Date Diagnosis (ICD Code) Assessment Notes Treatment Notes Treatment Clinical Notes Section Notes 01/05/2025 Tinea unguium (ICD-10 - B35.1) Response to treatment,Unres olved 01/05/2025 Pain in right toe(s) (ICD-10 - M79.674) 01/05/2025 Pain in left toe(s) (ICD-10 - M79.675) Plan Of Treatment Pending Test Test Name Order Date [id number] Destruction, 1-14 03/03/2024 08941- Removal of Foreign Body, Subcut 1 50,[id number] TENDON SHEATH/LIGAMENT 1 50,[id number] TENDON SHEATH/LIGAMENT 0 02/15/201480177,[id number] TENDON SHEATH/LIGAMENT 0 02/23/201432398,[id number] TENDON SHEATH/LIGAMENT 1 Next Appt Details Provider Name:Leandro Harvey , 04/23/2025 08:45:00 AM, [address] [place], [address], Insurance Providers Payer Name Payer Address Payer Phone Subscriber Number Group Number Insured Name Patient Relationship to Insured Coverage Start Date Coverage End Date Medicare [facility] [address] [place] [address] [phone] [id number] Rae Nereida Self - patient is the insured [employer] [address] [place] [address] [id number] 4 Rae Nereida Self - patient is the insured Medical (General) History Medical History History ICD Code Anxiety Arthritis Back,Hip,and Knee pain sinusitis Measles Mumps Chicken pox Joint implants/screws CAD (Cholesterol) Depression Surgical History Surgery Date(Month/Year) rods in both shoulders Left SQ Plantar Fibroma/S.T. Mass (Unspe c) 09/2014 rotator cuff 2006 colonoscopy
--- OUTSIDE RECORDS SUMMARY | 2025-04-14 07:19 | XMS_ITS | Clinical Summary ---
Author Organization [facility] Address [address] [place] [address] Care Team Providers Care Boilerhouse Mechanic Name Role Phone Buddy Shaw NP Primary [...] DX:Neurogenic bladder; COMMENT: self-cath qid/ Dr. Pierre FIORDALZIA positive DX:FIORDALIZA positive CINDY on CPAP DX:CINDY [...] Date Smoking Tobacco: Light Smoker Cigarettes 0 Last attempted t o quit: 1974 Smokeless [...] 11/29/19 22, 09/17/2020, 02/21/2019, Additional history exists Depression Screening [...] of malignancy. BI-RADS 1 - negative us Bdudy Shaw NP IMG XR PROCEDURES Final Resu lt from Last 3 Months or Most Recently Relevant to Health Maintenance Care Teams Boilerhouse Mechanic Relationship Specialty Start Date End Date Buddy Shaw, MUKUL [address] [facility] [place], [place] PCP - General 11/29/22
--- OUTSIDE RECORDS SUMMARY | 2025-04-14 07:20 | XMS_ITS | Patient Health Record ---
Author Organization [facility] Address [address] [facility] [address] [place] [address] Care Team Providers Care Picture Painter Name Role Phone Annette Fong Primary Care [...] needed Orally Three times a day Active [place] Fatty Acids-Vitamins Active DULoxetine HCl 60 MG 1 capsule Orally On ce a day Active Multivitamin Active Problems Problem Type SNOMED Code ICD Code Onset Dates Problem Status W/U Status Risk Notes Problem Polyneuropathy (41546197) Other specified polyneuropathies (G62.89) Active confirmed Plan Of Treatment No Information Insurance Providers Payer Name Payer Address Payer Phone Subscriber Number Group Number Insured Name Patient Relationship to Insured Coverage Start Date Coverage End Date [facility] [address] [place] [phone] [id number] Nereida Mcbride Self - patient is the [...]
== END 2025-04-14 07:18 | disposition home or self-care (01) ==
LOC: HO.CT 07:17
PROVIDERS: PCP Nurse Practitioner Family; Visit Provider Physician Assistant Medical
DX: Z12.2 Encounter for screening for malignant neoplasm of respiratory organs (principal); F17.210 Nicotine dependence, cigarettes, uncomplicated
CPT/HCPCS: 71271

== ENCOUNTER → 2025-04-14 07:19 | Outpatient (BNV) | payer MEDICARE, SELFPAY | PROVIDERS: PCP Nurse Practitioner Family; Visit Provider Radiology Diagnostic Radiology | DX: Z12.2 Encounter for screening for malignant neoplasm of respiratory organs (principal); Z87.891 Personal history of nicotine dependence; J43.9 Emphysema, unspecified | CPT/HCPCS: 71271 ==

== ENCOUNTER 2025-05-18 13:10 | Outpatient (REF) | payer MEDICARE, SELFPAY ==
--- OUTSIDE RECORDS SUMMARY | 2025-05-18 17:56 | XMS_ITS | Encounter Summary ---
Author Organization [facility] Prior to 04/03/2024 Address [address] [place] [address] Care Team Providers Care Group Director Name Role Phone Celina Mann DO Primary Care Pro vider Unavailable Mercedes Han MD Primary Care Provider [phone] Callum Hernandez DO Primary Care Provider Lopez Lu MD Primary Care Provider Buddy Foy NP Primary Care Provider Unavail able [facility], Pcp Primary Care Provider Buddy Marlow NP Primary Care Provider Unavail able Encounter Details Date Type Department Care Team Description 04/15/2017 Pt. Non Urgent Medic al Question Adult Medicine [address] [address] Celina Mann DO Social History Tobacco Use [...] filedocumented in this encounter Care Teams Group Director Relationship Specialty Start Date End Date Celina Mann DO PCP - General Internal Medicine 03/21/16 11/23/20 Mercedes Han MD [address] [place] [address] PCP - General Internal Medicine 11/24/20 01/11/21 Callum Hernandez DO [address] [place] [address] PCP - General Internal Medicine 01/12/21 03/19/21 Lopez Brennan MD [address] [place] [address] PCP - General Internal Medicine 03/20/21 10/19/21 Buddy Shaw NP [address] [place] [address] PCP - General Family Practice 10/20/21 01/04/[address] [address] PCP - General Internal Medicine 01/05/22 11/28/22 Buddy Shaw NP [address] [place] [address] PCP - General Family Practice 11/29/22 documented as of this encounter
--- OUTSIDE RECORDS SUMMARY | 2025-05-18 17:56 | XMS_ITS | Encounter Summary ---
Author Organization [facility] Prior to 04/03/2024 Address [address] [place] [address] Care Team Providers Care Puttier Name Role Phone Celina Mann DO Primary Care Pro vider Unavailable Mercedes Han MD Primary Care Provider Callum Hernandez DO Primary Care Provider Lopez Lu MD Primary Care Provider Buddy Foy NP Primary Care Provider Unavail able [facility] Primary Care Provider Buddy Marlow NP Primary Care Provider Unavail able Encounter Details Date Type Department Care Team Description 05/23/2020 Director Of Intelligence Report Medical Records [address] [place] [id number] Raul German Social History Tobacco Use Types [...] on filedocumented in this encounter Care Teams Puttier Relationship Specialty Start Date End Date KraCelina Starr DO PCP - General Internal Medicine 03/21/16 11/23/20 Mercedes Han MD [address] [place], [place] [id number] PCP - General Internal Medicine 11/24/20 01/11/21 Callum Hernandez DO [address] [place], [place] [phone] PCP - General Internal Medicine 01/12/21 03/19/21 Lopez Brennan MD [address] [place], [place] [phone] PCP - General Internal Medicine 03/20/21 10/19/21 Buddy Shaw NP [address] [place] [address] PCP - General Family Practice 10/20/21 01/04/22 [facility], [address] [address] PCP - General Internal Medicine 01/05/22 11/28/22 Buddy Shaw NP [address] [place] [address] PCP - General Family Practice 11/29/22 documented as of this encounter
--- OUTSIDE RECORDS SUMMARY | 2025-05-18 17:56 | XMS_ITS | Encounter Summary ---
Author Organization [facility] Prior to 04/03/2024 Address [address] [place] [address] Care Team Providers Care Plugging Machine Operator Name Role Phone Celina Mann DO Primary Care Pro vider Unavailable Mercedes Han MD Primary Care Provider [phone] Callum Hernandez DO Primary Care Provider Lopez Lu MD Primary Care Provider Buddy Foy NP Primary Care Provider Unavail [facility] Primary Care Provider Buddy Marlow NP Primary Care Provider Unavail [facility] Encounter Details Date Type Department Care Team Description 01/21/2020 Pulmonary Care Nurse Report Medical Records [address] [place] [address] Raul German Social History Tobacco Use Types [...] on filedocumented in this encounter Care Teams Plugging Machine Operator Relationship Specialty Start Date End Date Celina Mann DO PCP - General Internal Medicine 03/21/16 11/23/20 Mercedes Han MD [address] [place] [address] PCP - General Internal Medicine 11/24/20 01/11/21 Callum Hernandez DO [address] [place] [address] PCP - General Internal Medicine 01/12/21 03/19/21 Lopez Brennan MD [address] [place], [place] [phone] PCP - General Internal Medicine 03/20/21 10/19/21 Buddy Shaw NP [address] [place] [address] PCP - General Family Practice 10/20/21 01/04/22 [facility], Pcp [address] [place] [address] PCP - General Internal Medicine 01/05/22 11/28/22 Buddy Shaw NP [address] [place] [address] PCP - General Family Practice 11/29/22 documented as of this encounter
--- OUTSIDE RECORDS SUMMARY | 2025-05-18 17:56 | XMS_ITS | Encounter Summary ---
Author Organization [facility] Prior to 04/03/2024 Address [address] [place] [address] Care Team Providers Care Whitewasher Name Role Phone Celina Mann DO Primary Care Pro vider Unavailable Mercedes Han MD Primary Care Provider [phone] Callum Hernandez DO Primary Care Provider Lopez Lu MD Primary Care Provider Buddy Foy NP Primary Care Provider Unavail [facility] Primary Care Provider Buddy Marlow NP Primary Care Provider Unavail able Encounter Details Date Type Department Care Team Description 10/29/2019 Land Mobile Radio Technician Report Medical Records [address] [place] [id number] [place] [address] Social History Tobacco Use Types Packs/Day Years [...] on filedocumented in this encounter Care Teams Whitewasher Relationship Specialty Start Date End Date Celina Mann DO PCP - General Internal Medicine 03/21/16 11/23/20 Mercedes Han MD [address] [place] [address] PCP - General Internal Medicine 11/24/20 01/11/21 Callum Hernandez DO [address] [place] [address] PCP - General Internal Medicine 01/12/21 03/19/21 Lopez Brennan MD [address] [place], [place] [phone] PCP - General Internal Medicine 03/20/21 10/19/21 Buddy Shaw NP [address] [place] [address] PCP - General Family Practice 10/20/21 01/04/22 [facility], Pcp [address] [place] [address] PCP - General Internal Medicine 01/05/22 11/28/22 Buddy Shaw NP [address] [place] [address] PCP - General Family Practice 11/29/22 documented as of this encounter
--- OUTSIDE RECORDS SUMMARY | 2025-05-18 17:56 | XMS_ITS | Encounter Summary ---
Author Organization [facility] Prior to 04/03/2024 Address [address] [place] [address] Care Team Providers Care Lei Seller Name Role Phone Celina Mann DO Primary Care Pro vider Unavailable Mercedes Han MD Primary Care Provider [phone] Callum Hernandez DO Primary Care Provider Lopez Lu MD Primary Care Provider Buddy Foy NP Primary Care Provider Unavail able [facility], Pcp Primary Care Provider UnavailBuddy Stephen NP Primary Care Provider Unavail able Reason for Visit * Reason Comments E-prescribe Rx Request Encounter Details Date Type Department Care Team Description 07/12/2020 Refill Adult Medicine [address] [address] Celina Mann DO E-prescribe Rx Request Social [...] N/A Patients current insurance carrier is: Payor: [employer] / Plan: [employer] $20 PARKER 1 / Product Type: [employer] [id number] documented in this encounter Plan of Treatment Not on file documented as of this encounter Visit Diagnoses Not on filedocumented in this encounter Care Teams Lei Seller Relationship Specialty Start Date End Date Celina Mann DO PCP - General Internal Medicine 03/21/16 11/23/20 Mercedes Han MD [address] [place] [address] PCP - General Internal Medicine 11/24/20 01/11/21 Callum Hernandez DO [address] [place], [place] [phone] PCP - General Internal Medicine 01/12/21 03/19/21 Lopez Brennan MD [address] [place], [place] [phone] PCP - General Internal Medicine 03/20/21 10/19/21 Buddy Shaw NP [address] [place] [address] PCP - General Family Practice 10/20/21 01/04/22 [facility], Pcp [address] [place] [address] PCP - General Internal Medicine 01/05/22 11/28/22 Buddy Shaw NP [address] [place] [address] PCP - General Family Practice 11/29/22 documented as of this encounter
--- OUTSIDE RECORDS SUMMARY | 2025-05-18 17:56 | XMS_ITS | Encounter Summary ---
Author Organization [facility] Prior to 04/03/2024 Address [address] [place] [address] Care Team Providers Care Mill Roll Operator Name Role Phone Luciano Skinner MD Primary Care Provider Katheirne Blake Bourgeois MD Primary Care Provider Unavail able Celina Mann DO Primary Care Pro vider Unavailable Mercedes Han MD Primary Care Provider [phone] Celina Mann DO Primary Care Pro vider Unavailable Mercedes Han MD Primary Care Provider [phone] Callum Hernandez DO Primary Care Provider Katherine Lopez Aragon MD Primary Care Provider Buddy Foy NP Primary Care Provider Unavail able [facility], Pcp Primary Care Provider UnavailBuddy Stephen NP Primary Care Provider Unavail able Encounter Details Date Type Department Care Team Description 05/04/2013 Drilling And Production Superintendent Report Medical Records [address] [place] [address] Nilton Kumar Social History Tobacco Use Types [...] on filedocumented in this encounter Care Teams Mill Roll Operator Relationship Specialty Start Date End Date Brody, Luciano M., MD PCP - General 12/13/10 05/10/14 Blake Rivera MD PCP - General Internal Medicine 05/11/14 03/03/15 Celina Mann, PCP - General Internal Medicine 03/04/15 02/06/16 Mercedes Han MD [address] [place] [address] PCP - General Internal Medicine 02/07/16 03/20/16 Celina Mann, PCP - General Internal Medicine 03/21/16 11/23/20 Mercedes Han MD [address] [place] [address] PCP - General Internal Medicine 11/24/20 01/11/21 Callum Hernandez DO [address] [place] [address] PCP - General Internal Medicine 01/12/21 03/19/21 Lopez Brennan MD [address] [place] [address] PCP - General Internal Medicine 03/20/21 10/19/21 Buddy Shaw NP [address] [place] [address] PCP - General Family Practice 10/20/21 01/04/22 [facility], Pcp [address] [place] [address] PCP - General Internal Medicine 01/05/22 11/28/22 Buddy Shaw NP [address] [place] [address] PCP - General Family Practice 11/29/22 documented as of this encounter
--- OUTSIDE RECORDS SUMMARY | 2025-05-18 17:56 | XMS_ITS | Encounter Summary ---
Author Organization [employer] [facility] Prior to 04/03/2024 Address [address] [place] [address] Care Team Providers Care Electric Motor Winder Name Role Phone Celina Mann DO Primary Care Pro vider Unavailable Mercedes Han MD Primary Care Provider [phone] Callum Hernandez DO Primary Care Provider Lopez Lu MD Primary Care Provider Buddy Foy NP Primary Care Provider Unavail able [facility], Pcp Primary Care Provider UnavailBuddy Stephen NP Primary Care Provider Unavail able Reason for Visit * Reason Onset Date Comments Medication 2018 Encounter Details Date Type Department Care Team Description 2018 Refill Gastroenterology - [address] [address] Ignacio Mcleod MD Medication Social History Tobacco [...] on filedocumented in this encounter Care Teams Electric Motor Winder Relationship Specialty Start Date End Date Celina Mann DO PCP - General Internal Medicine 03/21/16 11/23/20 Mercedes Han MD [address] [place] [address] PCP - General Internal Medicine 11/24/20 01/11/21 Callum Hernandez DO [address] [place], [place] [phone] PCP - General Internal Medicine 01/12/21 03/19/21 Lopez Brennan MD [address] [place] [address] PCP - General Internal Medicine 03/20/21 10/19/21 Buddy Shaw NP [address] [place] [address] PCP - General Family Practice 10/20/21 01/04/[address] [address] PCP - General Internal Medicine 01/05/22 11/28/22 Buddy Shaw NP [address] [place] [address] PCP - General Family Practice 11/29/22 documented as of this encounter
--- OUTSIDE RECORDS SUMMARY | 2025-05-18 17:56 | XMS_ITS | Encounter Summary ---
Author Organization [facility] Prior to 04/03/2024 Address [address] [place] [address] Care Team Providers Care Analyst Competitive Intelligence Name Role Phone Celina Mann DO Primary Care Pro vider Unavailable Mercedes Han MD Primary Care Provider [phone] Celina Mann DO Primary Care Pro vider Unavailable Mercedes Han MD Primary Care Provider [phone] Callum Hernandez DO Primary Care Provider Lopez Lu MD Primary Care Provider Buddy Foy NP Primary Care Provider Unavail [facility] Pcp Primary Care Provider Buddy Marlow NP Primary Care Provider Unavail [facility] Encounter Details Date Type Department Care Team Description 06/01/2015 Release of Information Medical Records [address] [place] [address] Abstract, Provider Social History Tobacco Use Types [...] on filedocumented in this encounter Care Teams Analyst Competitive Intelligence Relationship Specialty Start Date End Date Celina Mann DO PCP - General Internal Medicine 03/04/15 02/06/16 Mercedes Han MD [address] [place] [address]149 PCP - General Internal Medicine 02/07/16 03/20/16 Celina Mann DO PCP - General Internal Medicine 03/21/16 11/23/20 Mercedes Han MD [address] [place] [address] 89126 PCP - General Internal Medicine 11/24/20 01/11/21 Callum Hernandez DO [address] [place] [address] 12497 PCP - General Internal Medicine 01/12/21 03/19/21 Lopez Brennan MD [address] [place] [address] 94692 PCP - General Internal Medicine 03/20/21 10/19/21 Buddy Shaw NP [address] [place] [address] 43092 PCP - General Family Practice 10/20/21 01/04/22 [facility], [address] [address] PCP - General Internal Medicine 01/05/22 11/28/22 Buddy Shaw NP [address] [place] [address] PCP - General Family Practice 11/29/22 documented as of this encounter
--- OUTSIDE RECORDS SUMMARY | 2025-05-18 17:56 | XMS_ITS | Encounter Summary ---
Author Organization [facility] Prior to 04/03/2024 Address [address] [place] [address] Care Team Providers Care Factory Hand Name Role Phone Luciano Skinner MD Primary Care Provider Katherine Javed Lindsay MD Primary Care Provider Unav Blake Pulido MD Primary Care Provider Unavail able Celina Mann DO Primary Care Pro vider Unavailable Mercedes Han MD Primary Care Provider [phone] Celina Mann DO Primary Care Pro vider Unavailable Mercedes Han MD Primary Care Provider [phone] Callum Hernandez DO Primary Care Provider Katherine Lopez Aragon MD Primary Care Provider Buddy Foy NP Primary Care Provider Unavail able [facility], [facility] Primary Care Provider UnavailBuddy Stephen NP Primary Care Provider Unavail able Encounter Details Date Type Department Care Team Description 05/01/2010 Physical Ther Report Medical Records [address] [place] [address] Chi Pierre Social History Tobacco Use Types [...] on filedocumented in this encounter Care Teams Factory Hand Relationship Specialty Start Date End Date Luciano Skinner MD PCP - General 12/13/10 05/10/14 Javed Kulkarni MD PCP - General 03/15/00 12/12/10 Blake Rivera MD PCP - General Internal Medicine 05/11/14 03/03/15 eClina Mann, PCP - General Internal Medicine 03/04/15 02/06/16 Mercedes Han MD [address] [place] [address] PCP - General Internal Medicine 02/07/16 03/20/16 Celina Mann, PCP - General Internal Medicine 03/21/16 11/23/20 Mercedes Han MD [address] [place] [address] 40440 PCP - General Internal Medicine 11/24/20 01/11/21 Callum Hernandez, [address] [place] [address]92 PCP - General Internal Medicine 01/12/21 03/19/21 Lopez Brennan MD [address] [place] [address] 58251 PCP - General Internal Medicine 03/20/21 10/19/21 Buddy Shaw NP [address] [place] [address] 61147 PCP - General Family Practice 10/20/21 01/04/22 [facility], [address] [address] PCP - General Internal Medicine 01/05/22 11/28/22 Buddy Shaw NP [address] [place] [address]778 PCP - General Family Practice 11/29/22 documented as of this encounter
--- OUTSIDE RECORDS SUMMARY | 2025-05-18 17:56 | XMS_ITS | Encounter Summary ---
Author Organization [facility] Prior to 04/03/2024 Address [address] [place] [address] Care Team Providers Care Sheet Turner Name Role Phone Luciano Skinner MD Primary Care Provider Katherine Blake Bourgeois MD Primary Care Provider Unavail able Celina Mann DO Primary Care Pro vider Unavailable Mercedes Han MD Primary Care Provider [phone] Celina Mann DO Primary Care Pro vider Unavailable Mercedes Han MD Primary Care Provider [phone] Callum Hernandez DO Primary Care Provider Katherine Lopez Aragon MD Primary Care Provider Buddy Foy NP Primary Care Provider Unavail able [facility], Pcp Primary Care Provider UnavailBuddy Stephen NP Primary Care Provider Unavail able Encounter Details Date Type Department Care Team Description 10/01/2013 Hospital Medical Records [address] [place] [address] Nilton Kumar Social History Tobacco Use Types [...] on filedocumented in this encounter Care Teams Sheet Turner Relationship Specialty Start Date End Date Luciano Skinner MD PCP - General 12/13/10 05/10/14 Blake Rivera MD PCP - General Internal Medicine 05/11/14 03/03/15 Celina Mann, PCP - General Internal Medicine 03/04/15 02/06/16 Mercedes Han MD [address] [place], [place] [phone] PCP - General Internal Medicine 02/07/16 03/20/16 Celina Mann, PCP - General Internal Medicine 03/21/16 11/23/20 Mercedes Han MD [address] [place] [address] PCP - General Internal Medicine 11/24/20 01/11/21 Callum Hernandez DO [address] [place], [place] [phone] PCP - General Internal Medicine 01/12/21 03/19/21 Lopez Brennan MD [address] [place] [address] PCP - General Internal Medicine 03/20/21 10/19/21 Buddy Shaw NP [address] [place] [address] 89854 PCP - General Family Practice 10/20/21 01/04/22 [facility], Pcp [address] [place] [address]334 PCP - General Internal Medicine 01/05/22 11/28/22 Buddy Shaw NP [address] [place], [place] [phone] PCP - General Family Practice 11/29/22 documented as of this encounter
--- OUTSIDE RECORDS SUMMARY | 2025-05-18 17:56 | XMS_ITS | Encounter Summary ---
Author Organization [employer] [facility] Prior to 04/03/2024 Address [address] [place] [address] Care Team Providers Care Submarine Operator Name Role Phone Celina Mann DO Primary Care Pro vider Unavailable Mercedes Han MD Primary Care Provider [phone] Celina Mann DO Primary Care Pro vider Unavailable Mercedes Han MD Primary Care Provider [phone] Callum Hernandez DO Primary Care Provider Lopez Lu MD Primary Care Provider Buddy Foy NP Primary Care Provider Unavail [facility] Pcp Primary Care Provider Buddy Marlow NP Primary Care Provider Unavail [facility] Encounter Details Date Type Department Care Team Description 08/09/2015 FACILITIES OPERATOR/[place] Report Medical Records [address] [place] [address] Abstract, Provider Social History Tobacco Use Types [...] on filedocumented in this encounter Care Teams Submarine Operator Relationship Specialty Start Date End Date Celina Mann DO PCP - General Internal Medicine 03/04/15 02/06/16 Mercedes Han MD [address] [place] [address] PCP - General Internal Medicine 02/07/16 03/20/16 Celina Mann DO PCP - General Internal Medicine 03/21/16 11/23/20 Mercedes Han MD [address] [place] [address]709 PCP - General Internal Medicine 11/24/20 01/11/21 Callum Hernandez DO [address] [place] [address]66 PCP - General Internal Medicine 01/12/21 03/19/21 Lopez Brennan MD [address] [place] [address] PCP - General Internal Medicine 03/20/21 10/19/21 Buddy Shaw NP [address] [place] [address] PCP - General Family Practice 10/20/21 01/04/22 [facility], [address] [address] PCP - General Internal Medicine 01/05/22 11/28/22 Buddy Shaw NP [address] [place] [address]117 PCP - General Family Practice 11/29/22 documented as of this encounter
--- OUTSIDE RECORDS SUMMARY | 2025-05-18 17:56 | XMS_ITS | Clinical Summary ---
Author Organization [facility] Prior to 04/03/2024 Address [address] [place] [address] Care Team Providers Care Reverse Unit Operator Fisherman Name Role Phone Buddy Shaw NP Primary Care Provider Unavail able Medications Medication Sig Dispensed Refills Start Date End Date Status MULTI-VITAMIN OR 1 tab daily 0 Active VITAMIN B-12 OR 1 tab daily 0 Active CALCIUM + D 600-200 MG-UNIT OR TABS 1 TABLET DAILY 0 Activ e CPAP Historical (HISTORICAL CPAP) Inhale into the lungs. J&L pressure 6-16 0 08/09/2015 Active [place]-3 Fatty Acids (FISH OIL OR) Take by mouth daily. 0 Active Cholecalciferol (VITAMIN D3) 3000 UNITS Tab Take 1 Tab by mouth daily. 0 Active ibuprofen (ADVIL,MOTRIN) 800 MG tablet Take 1 Tab by mouth 3 times daily (with meals). 0 12/16/2019 Active Triamcinolone Acetonide (NASACORT ALLERGY 24HR) 55 MCG/ACT Aerosol 1 Allow[place] by Nasal route daily as needed (rhinitis [...] 85 08/12/2020 2:25 PM EST Temperature 36.7 C (98 F) 12/28/2019 2:53 PM EDT Respiratory Rate 16 [...] 01/06/2024 01/05/2022, 10/10/2021, 08/04/2021, Additional history exists BMI CHECK/ADVISE 06/03/2024 08/12/2020, , 09/25/2019, Additional history exists Covid-19 Vaccine (3 2022-2 4 season) 2025 10/04/2021, 07/25/2020 INFLUENZA (#1) 2025 2021, 0806/2019, 02/10/2018, Additional history exists CHOLESTEROL SCREENING 08/12/2025 08/12/2020 , 10/14/2019, 03/22/2018, Additional history exists HEPATITIS C SCREENING Completed 03/21/2013 Care Teams Reverse Unit Operator Fisherman Relationship Specialty Start Date End Date Buddy Shaw NP PCP - General Family Practice 11/29/22
--- OUTSIDE RECORDS SUMMARY | 2025-05-18 17:56 | XMS_ITS | Encounter Summary ---
Author Organization [employer] [facility] Prior to 04/03/2024 Address [address] [place] [address] Care Team Providers Care Cigar Packer And Shader Name Role Phone Luciano Skinner MD Primary Care Provider Katherine Blake Bourgeois MD Primary Care Provider Unavail able Celina Mann DO Primary Care Pro vider Unavailable Mercedes Han MD Primary Care Provider [phone] Celina Mann DO Primary Care Pro vider Unavailable Mercedes Han MD Primary Care Provider [phone] Callum Hernandez DO Primary Care Provider Katherine Lopez Aragon MD Primary Care Provider Buddy Foy NP Primary Care Provider Unavail able On License Of [facility], Pcp Primary Care Provider UnavailBuddy Stephen NP Primary Care Provider Unavail able Encounter Details Date Type Department Care Team Description 06/15/2011 Telephone Adult [address] [address] Luciano Skinner MD Social History Tobacco Use [...] 06/15/2011 9:28 AM EST Pt booked appoinment trhough my chart documented in this encounter Plan of Treatment Not on file documented as of this encounter Visit Diagnoses Not on filedocumented in this encounter Care Teams Cigar Packer And Shader Relationship Specialty Start Date End Date Luciano Skinner MD PCP - General 12/13/10 05/10/14 Blake Rivera MD PCP - General Internal Medicine 05/11/14 03/03/15 Celina Mann, PCP - General Internal Medicine 03/04/15 02/06/16 Mercedes Han MD [address] [place] [address] PCP - General Internal Medicine 02/07/16 03/20/16 Celina Mann, PCP - General Internal Medicine 03/21/16 11/23/20 Mercedes Han MD [address] [place] [address]0009 PCP - General Internal Medicine 11/24/20 01/11/21 Callum Hernandez DO [address] [place] [address]72 PCP - General Internal Medicine 01/12/21 03/19/21 Lopez Brennan MD [address] [place] [address] 68095 PCP - General Internal Medicine 03/20/21 10/19/21 Buddy Shaw NP [address] [place] [address] 61042 PCP - General Family Practice 10/20/21 01/04/22 On License Of [facility], [address] [address] PCP - General Internal Medicine 01/05/22 11/28/22 Buddy Shaw NP [address] [place] [address]239 PCP - General Family Practice 11/29/22 documented as of this encounter
--- OUTSIDE RECORDS SUMMARY | 2025-05-18 17:56 | XMS_ITS | Encounter Summary ---
Author Organization [employer] [facility] Prior to 04/03/2024 Address [address] [place] [address] Care Team Providers Care Folding Rules Printing Machine Operator Name Role Phone Celina Mann DO Primary Care Pro vider Unavailable Mercedes Han MD Primary Care Provider [phone] Callum Hernandez DO Primary Care Provider Lopez Lu MD Primary Care Provider Buddy Foy NP Primary Care Provider Unavail able [facility] Pcp Primary Care Provider Buddy Marlow NP Primary Care Provider Unavail able Encounter Details Date Type Department Care Team Description 03/18/2017 Release of Information Medical Records [address] [place] [address] Abstract, Provider Social History Tobacco Use Types [...] on filedocumented in this encounter Care Teams Folding Rules Printing Machine Operator Relationship Specialty Start Date End Date Celina Mann DO PCP - General Internal Medicine 03/21/16 11/23/20 Mercedes Han MD [address] [place] [address] PCP - General Internal Medicine 11/24/20 01/11/21 Callum Hernandez DO [address] [place] [address] PCP - General Internal Medicine 01/12/21 03/19/21 Lopez Brennan MD [address] [place] [address] PCP - General Internal Medicine 03/20/21 10/19/21 Buddy Shaw NP [address] [place] [address] 22647 PCP - General Family Practice 10/20/21 01/04/22 [facility], Pcp [address] [place] [address]68 PCP - General Internal Medicine 01/05/22 11/28/22 Buddy Shaw NP [address] [place], [place] [phone] PCP - General Family Practice 11/29/22 documented as of this encounter
--- OUTSIDE RECORDS SUMMARY | 2025-05-18 17:56 | XMS_ITS | Encounter Summary ---
Author Organization [employer] [facility] Prior to 04/03/2024 Address [address] [place] [address] Care Team Providers Care Application Integration Specialist Name Role Phone Celina Mann DO Primary Care Pro vider Unavailable Mercedes Han MD Primary Care Provider [phone] Callum Hernandez DO Primary Care Provider Lopez Lu MD Primary Care Provider Buddy Foy NP Primary Care Provider Unavail able [facility], Pcp Primary Care Provider UnavailBuddy Stephen NP Primary Care Provider Unavail able Reason for Visit * Reason Onset Date Comments Sweating, Excessive 01/19/2018 Encounter Details Date Type Department Care Team Description 01/19/2018 Pt. Non Urgent Medic al Question Adult Medicine [address] [address] Celina Mann DO Social History Tobacco Use [...] filedocumented in this encounter Care Teams Application Integration Specialist Relationship Specialty Start Date End Date Celina Mann DO PCP - General Internal Medicine 03/21/16 11/23/20 Mercedes Han MD [address] [place] [address] PCP - General Internal Medicine 11/24/20 01/11/21 Callum Hernandez DO [address] [place] [address] PCP - General Internal Medicine 01/12/21 03/19/21 Lopez Brennan MD [address] [place] [address] 79661 PCP - General Internal Medicine 03/20/21 10/19/21 Buddy Shaw NP [address] [place] [address] PCP - General Family Practice 10/20/21 01/04/22 [facility], [address] [address] PCP - General Internal Medicine 01/05/22 11/28/22 Buddy Shaw NP [address] [place] [address] PCP - General Family Practice 11/29/22 documented as of this encounter
--- OUTSIDE RECORDS SUMMARY | 2025-05-18 17:56 | XMS_ITS | Encounter Summary ---
Author Organization [email or web address] [facility] Prior to 04/03/2024 Address [address] [place] [address] Care Team Providers Care Records Management Technician Name Role Phone Blake Rivera MD Primary Care Provider Unavail able Celina Mann DO Primary Care Pro vider Unavailable Mercedes Han MD Primary Care Provider [phone] Arabella Ulloa, Celina DO Primary Care Pro vider Unavailable Mercedes Han MD Primary Care Provider [phone] Callum Hernandez DO Primary Care Provider Lopez uL MD Primary Care Provider Buddy Foy NP Primary Care Provider Unavail able [facility] Pcp Primary Care Provider UnavailBuddy Stephen NP Primary Care Provider Unavail able Encounter Details Date Type Department Care Team Description 01/28/2015 Auger Operator Report Medical Records [address] [place] [address] Marko Ham I., PH.D Social History Tobacco [...] on filedocumented in this encounter Care Teams Records Management Technician Relationship Specialty Start Date End Date Blake Rivera MD PCP - General Internal Medicine 05/11/14 03/03/15 Celina Mann DO PCP - General Internal Medicine 03/04/15 02/06/16 Mercedes Han MD [address] [place] [address] PCP - General Internal Medicine 02/07/16 03/20/16 Celina Mann DO PCP - General Internal Medicine 03/21/16 11/23/20 Mercedes Han MD [address] [place] [address] PCP - General Internal Medicine 11/24/20 01/11/21 Callum Hernandez DO [address] [place] [address]30 PCP - General Internal Medicine 01/12/21 03/19/21 Lopez Brennan MD [address] [place] [address]60 PCP - General Internal Medicine 03/20/21 10/19/21 Buddy Shaw NP [address] [place] [address]393 PCP - General Family Practice 10/20/21 01/04/22 [facility], Pcp [address] [place] [address] PCP - General Internal Medicine 01/05/22 11/28/22 Buddy Shaw NP [address] [place] [address] PCP - General Family Practice 11/29/22 documented as of this encounter
--- OUTSIDE RECORDS SUMMARY | 2025-05-18 17:56 | XMS_ITS | Encounter Summary ---
Author Organization [facility] [facility] Prior to 04/03/2024 Address [address] [place] [address] Care Team Providers Care Senior Software Engineer Name Role Phone Celina Mann DO Primary Care Pro vider Unavailable Mercedes Han MD Primary Care Provider [phone] Callum Hernandez DO Primary Care Provider Lopez Lu MD Primary Care Provider Buddy Foy NP Primary Care Provider Unavail able [facility], Pcp Primary Care Provider Buddy Marlow NP Primary Care Provider Unavail able Reason for Visit * Reason Onset Date Comments Call From Hospital 02/28/2017 Encounter Details Date Type Department Care Team Description 02/28/2017 Telephone Adult [address] [address] Celina Mann DO Call From Hospital Social [...] pt she is on her way to [facility], * Telephone Encounter - Darlenemanas Marquezno - 02/28/2017 11:27 AM EDT Alisha a Public Health nurse in [place] gave following info Symptoms patient is presenting: low leg swelling ,tingling in hands 3lb weight gain since last night per alisha. Alisha states she instructing pt to go to [facility] fyi Pt can be reached @ [phone] If pain or injury related was it due to an accident at work or from a motor vehicle accident? no Date of accident/Injury: NA How long has patient had these symptoms?: last night PCP: Celina Fong Payor: [employer] [place] / Plan: [employer] $25 [place] 1 / Product Type: HMO [id number] documented in this encounter Plan of Treatment Not on file documented as of this encounter Visit Diagnoses Not on filedocumented in this encounter Care Teams Senior Software Engineer Relationship Specialty Start Date End Date Celina Mann DO PCP - General Internal Medicine 03/21/16 11/23/20 Mercedes Han MD [address] [place] [address] PCP - General Internal Medicine 11/24/20 01/11/21 Callum Hernandez DO [address] [place] [address]471 PCP - General Internal Medicine 01/12/21 03/19/21 Lopez Brennan MD [address] [place] [address] PCP - General Internal Medicine 03/20/21 10/19/21 Buddy Shaw NP [address] [place], [place] [phone] PCP - General Family Practice 10/20/21 01/04/22 [facility], Pcp [address] [place] [address]507 PCP - General Internal Medicine 01/05/22 11/28/22 Buddy Shaw NP [address] [place], [place] [phone] PCP - General Family Practice 11/29/22 documented as of this encounter
--- OUTSIDE RECORDS SUMMARY | 2025-05-18 17:56 | XMS_ITS | Encounter Summary ---
Author Organization [employer] [facility] Prior to 04/03/2024 Address [address] [place] [address] Care Team Providers Care Sales Assistants And Salespersons Name Role Phone Celina Mann DO Primary Care Pro vider Unavailable Mercedes Han MD Primary Care Provider [phone] Callum Hernandez DO Primary Care Provider Lopez Lu MD Primary Care Provider Buddy Foy NP Primary Care Provider Unavail able [facility] Pcp Primary Care Provider Buddy Marlow NP Primary Care Provider Unavail able Encounter Details Date Type Department Care Team Description 10/12/2019 Pt. Non Urgent Medic al Question Adult Medicine [address] [address] Celina Mann DO Social History Tobacco Use [...] on filedocumented in this encounter Care Teams Sales Assistants And Salespersons Relationship Specialty Start Date End Date Celina Mann DO PCP - General Internal Medicine 03/21/16 11/23/20 Mercedes Han MD [address] [place], [place] [phone] PCP - General Internal Medicine 11/24/20 01/11/21 Callum Hernandez DO [address] [place], [place] [phone] PCP - General Internal Medicine 01/12/21 03/19/21 Lopez Brennan MD [address] [place] [address] PCP - General Internal Medicine 03/20/21 10/19/21 Buddy Shaw NP [address] [place] [address] PCP - General Family Practice 10/20/21 01/04/22 [facility], [place] [phone] PCP - General Internal Medicine 01/05/22 11/28/22 Buddy Shaw NP [address] [place] [address] PCP - General Family Practice 11/29/22 documented as of this encounter
--- OUTSIDE RECORDS SUMMARY | 2025-05-18 17:56 | XMS_ITS | Encounter Summary ---
Author Organization [employer] [facility] Prior to 04/03/2024 Address [address] [place] [address] Care Team Providers Care Classics Professor Name Role Phone Celina Mann DO Primary Care Pro vider Unavailable Mercedes Han MD Primary Care Provider [phone] Callum Hernandez DO Primary Care Provider Lopez Lu MD Primary Care Provider Buddy Foy NP Primary Care Provider Unavail able [facility], Pcp Primary Care Provider UnavailBuddy Stephen NP Primary Care Provider Unavail able Reason for Visit * Reason Onset Date Comments Special Procedure 12/06/2017 10 yr repeat c olon Encounter Details Date Type Department Care Team Description 12/06/2017 Telephone Gastroenterology - [address] [address] Ignacio Mcleod MD Special Procedure (10 yr repeat colon) Social History Tobacco Use Types Packs/Day Years Used Date Smoking Tobacco: Light Smoker Cigarettes 25 Smokeless Tobacco: Never Comments:4 cigarettes daily Alcohol Use Standard Drinks/Week Comments No 0 (1 standard drink = 0.6 oz pur e alcohol) rare Sex Assigned at Date Recorded Not on file Job Start Date Occupation Industry Not on file Not on file Not on file documented as of this encounter Miscellaneous Notes * Telephone Encounter - Maribeth Ibarra MD - 12/09/2017 8:52 AM EDT She may be scheduled here at [facility] for her screening colon. * Telephone Encounter - Ronna Hernandez - 12/06/2017 3:01 PM EDT Patient is due for her [address] Mcleod. Please review patient's Problem list. Should patient be scheduled here or hospital? documented in this encounter Plan of Treatment Not on file documented as of this encounter Visit Diagnoses Not on filedocumented in this encounter Care Teams Classics Professor Relationship Specialty Start Date End Date Celina Mann DO PCP - General Internal Medicine 03/21/16 11/23/20 Mercedes Han MD [address] [place] [address] PCP - General Internal Medicine 11/24/20 01/11/21 Callum Hernandez DO [address] [place] [address] PCP - General Internal Medicine 01/12/21 03/19/21 Lopez Brennan MD [address] [place] [address] PCP - General Internal Medicine 03/20/21 10/19/21 Buddy Shaw NP [address] [place] [address] PCP - General Family Practice 10/20/21 01/04/22 [facility], [place] [id number] PCP - General Internal Medicine 01/05/22 11/28/22 Buddy Shaw NP [address] [place] [address] PCP - General Family Practice 11/29/22 documented as of this encounter
--- OUTSIDE RECORDS SUMMARY | 2025-05-18 17:56 | XMS_ITS | Encounter Summary ---
Author Organization [employer] [facility] Prior to 04/03/2024 Address [address] [place] [address] Care Team Providers Care Cloth Bleaching Range Back Tender Name Role Phone Celina Mann DO Primary Care Pro vider Unavailable Mercedes Han MD Primary Care Provider [phone] Callum Hernandez DO Primary Care Provider Lopez Lu MD Primary Care Provider Buddy Foy NP Primary Care Provider Unavail able [facility] Primary Care Provider Buddy Marlow NP Primary Care Provider Unavail able Encounter Details Date Type Department Care Team Description 09/09/2018 Restoration Silversmith Report Medical Records [address] [place] [address] Nola Peacock PA-C [address] [place] [phone] Social History Tobacco Use Types Packs/Day [...] filedocumented in this encounter Care Teams Cloth Bleaching Range Back Tender Relationship Specialty Start Date End Date Celina Mann DO PCP - General Internal Medicine 03/21/16 11/23/20 Mercedes Han MD [address] [place] [address] PCP - General Internal Medicine 11/24/20 01/11/21 Callum Hernandez DO [address] [place], [place] [phone] PCP - General Internal Medicine 01/12/21 03/19/21 Lopez Brennan MD [address] [place], [place] [phone] PCP - General Internal Medicine 03/20/21 10/19/21 Buddy Shaw NP [address] [place] [address] PCP - General Family Practice 10/20/21 01/04/22 [facility] [address] [place], [place] [phone] PCP - General Internal Medicine 01/05/22 11/28/22 Buddy Shaw NP [address] [place] [address] PCP - General Family Practice 11/29/22 documented as of this encounter
--- OUTSIDE RECORDS SUMMARY | 2025-05-18 17:56 | XMS_ITS | Encounter Summary ---
Author Organization [facility] [facility] Prior to 04/03/2024 Address [address] [place] [address] Care Team Providers Care Environmental Studies Faculty Member Name Role Phone Celina Mann DO Primary Care Pro vider Unavailable Mercedes Han MD Primary Care Provider [phone] Callum Hernandez DO Primary Care Provider Lopez Lu MD Primary Care Provider Buddy Foy NP Primary Care Provider Unavail [facility] Primary Care Provider Buddy Marlow NP Primary Care Provider Unavail [facility] Encounter Details Date Type Department Care Team Description 11/16/2019 Order Manager Report Medical Records [address] [place] [address] Abstract, Provider Social History Tobacco Use Types [...] filedocumented in this encounter Care Teams Environmental Studies Faculty Member Relationship Specialty Start Date End Date Celina Mann DO PCP - General Internal Medicine 03/21/16 11/23/20 Mercedes Han MD [address] [place] [address] PCP - General Internal Medicine 11/24/20 01/11/21 Callum Hernandez DO [address] [place] [address] PCP - General Internal Medicine 01/12/21 03/19/21 Lopez Brennan MD [address] [place], [place] [phone] PCP - General Internal Medicine 03/20/21 10/19/21 Buddy Shaw NP [address] [place] [address] PCP - General Family Practice 10/20/21 01/04/22 [facility], [place] [id number] PCP - General Internal Medicine 01/05/22 11/28/22 Buddy Shaw NP [address] [place] [address] PCP - General Family Practice 11/29/22 documented as of this encounter
--- OUTSIDE RECORDS SUMMARY | 2025-05-18 17:56 | XMS_ITS | Encounter Summary ---
Author Organization [employer] [facility] Prior to 04/03/2024 Address [address] [place] [address] Care Team Providers Care Furrier Designer Name Role Phone Lopez Brennan MD Primary Care Provider Buddy Foy NP Primary Care Provider Unavail able [facility], Pcp Primary Care Provider Buddy Marlow NP Primary Care Provider Unavail able Reason for Visit * Reason Onset Date Comments DME Request 06/13/2021 Encounter Details Date Type Department Care Team Description 06/13/2021 Telephone Pulmonology - [place] [address] [facility] [address] [place] [address] [facility] [address] [place] [address] DME Request Social History Tobacco Use Types [...] on filedocumented in this encounter Care Teams Furrier Designer Relationship Specialty Start Date End Date Lopez Brennan MD PCP - General Internal Medicine 03/20/21 10/19/21 Buddy Shaw NP PCP - General Family Practice 10/20/21 01/04/22 [facility], [facility] PCP - General Internal Medicine 01/05/22 11/28/22 Buddy Shaw NP PCP - General Family Practice 11/29/22 documented as of this encounter
--- OUTSIDE RECORDS SUMMARY | 2025-05-18 17:56 | XMS_ITS | Encounter Summary ---
Author Organization [employer] [facility] Prior to 04/03/2024 Address [address] [place] [address] Care Team Providers Care Beater Out Leveling Machine Name Role Phone Celina Mann DO Primary Care Pro vider Unavailable Mercedes Han MD Primary Care Provider [phone] Callum Hernandez DO Primary Care Provider Lopez Lu MD Primary Care Provider Buddy Foy NP Primary Care Provider Unavail able [facility], Pcp Primary Care Provider Buddy Marlow NP Primary Care Provider Unavail able Encounter Details Date Type Department Care Team Description 04/10/2019 Pt. Non Urgent Medic al Question Adult Medicine [address] [address] Celina Mann DO Social History Tobacco Use [...] on filedocumented in this encounter Care Teams Beater Out Leveling Machine Relationship Specialty Start Date End Date Celina Mann DO PCP - General Internal Medicine 03/21/16 11/23/20 Mercedes Han MD [address] [place] [address] PCP - General Internal Medicine 11/24/20 01/11/21 Callum Hernandez DO [address] [place], [place] [address] PCP - General Internal Medicine 01/12/21 03/19/21 Lopez Brennan MD [address] [place] [address] PCP - General Internal Medicine 03/20/21 10/19/21 Buddy Shaw NP [address] [place], [place] [address] PCP - General Family Practice 10/20/21 01/04/22 [facility], Pcp [address] [place] [address] PCP - General Internal Medicine 01/05/22 11/28/22 Buddy Shaw NP [address] [place] [address] PCP - General Family Practice 11/29/22 documented as of this encounter
--- OUTSIDE RECORDS SUMMARY | 2025-05-18 17:56 | XMS_ITS | Encounter Summary ---
Author Organization [employer] [facility] Prior to 04/03/2024 Address [address] [place] [address] Care Team Providers Care Spotter Name Role Phone Celina Mann DO Primary Care Pro vider Unavailable Mercedes Han MD Primary Care Provider [phone] Callum Hernandez DO Primary Care Provider Lopez Lu MD Primary Care Provider Buddy Foy NP Primary Care Provider Unavail able [facility], Pcp Primary Care Provider UnavailBuddy Stephen NP Primary Care Provider Unavail able Reason for Visit * Reason Onset Date Comments REFERRAL 03/15/2018 Encounter Details Date Type Department Care Team Description 03/15/2018 Telephone Gastroenterology - [address] [address] Ignacio Mcleod MD REFERRAL Social History Tobacco [...] on filedocumented in this encounter Care Teams Spotter Relationship Specialty Start Date End Date Celina Mann DO PCP - General Internal Medicine 03/21/16 11/23/20 Mercedes Han MD [address] [place] [address] PCP - General Internal Medicine 11/24/20 01/11/21 Callum Hernandez DO [address] [place] [address] PCP - General Internal Medicine 01/12/21 03/19/21 Lopez Brennan MD [address] [place] [address] PCP - General Internal Medicine 03/20/21 10/19/21 Buddy Shaw NP [address] [place] [address] PCP - General Family Practice 10/20/21 01/04/22 [facility], [address] [address] PCP - General Internal Medicine 01/05/22 11/28/22 Buddy Shaw NP [address] [place] [address] PCP - General Family Practice 11/29/22 documented as of this encounter
--- OUTSIDE RECORDS SUMMARY | 2025-05-18 17:56 | XMS_ITS | Encounter Summary ---
Author Organization [facility] Prior to 04/03/2024 Address [address] [place] [address] Care Team Providers Care Campus Recruiter Name Role Phone Buddy Shaw CLOTH WEIGHER Primary Care Provider Unavail able [facility], Pcp Primary Care Provider Unavailabl e Buddy Shaw CLOTH WEIGHER Primary Care Provider Unavail able Reason for Visit * Reason Onset Date Comments DME Request 10/26/2021 Encounter Details Date Type Department Care Team Description 10/26/2021 Telephone Pulmonology [facility] [address] [facility] [address] [place] [address] [facility] [address] [place] [address] DME Request Social History Tobacco Use Types [...] * Telephone Encounter - Shelley Dewey - 10/26/2021 10:34 AM EDT Done faxed order to [facility] for replacement machine documented in this encounter Plan of Treatment Not on file documented as of this encounter Visit Diagnoses Not on filedocumented in this encounter Care Teams Campus Recruiter Relationship Specialty Start Date End Date Buddy Shaw NP PCP - General Family Practice 10/20/21 01/04/22 [facility], Pcp PCP - General Internal Medicine 01/05/22 11/28/22 Buddy Shaw NP PCP - General Family Practice 11/29/22 documented as of this encounter
--- OUTSIDE RECORDS SUMMARY | 2025-05-18 17:56 | XMS_ITS | Encounter Summary ---
Author Organization [facility] Prior to 04/03/2024 Address [address] [place] [address] Care Team Providers Care History Card Clerk Name Role Phone Community, Pcp Primary Care Provider Buddy Marlow NP Primary Care Provider Unavail able Encounter Details Date Type Department Care Team Description 11/05/2022 Orders Only [facility] Lung Screening Program [place] [address] [facility] [address] [place] [phone] Simón Hamlin MD [address] [facility] [address] [place] [address] Pulmonary nodule/lesion, solitary (Primary Dx); Encounter for [...] health documented in this encounter Care Teams History Card Clerk Relationship Specialty Start Date End Date Community, Pcp PCP - General Internal Medicine 01/05/22 11/28/22 Buddy Shaw NP PCP - General Family Practice 11/29/22 documented as of this encounter
--- OUTSIDE RECORDS SUMMARY | 2025-05-18 17:56 | XMS_ITS | Encounter Summary ---
Author Organization [employer] [facility] Prior to 04/03/2024 Address [address] [place] [address] Care Team Providers Care Adult Literacy Instructor Name Role Phone Celina Mann DO Primary Care Pro vider Unavailable Mercedes Han MD Primary Care Provider [phone] Callum Hernandez DO Primary Care Provider Lopez Lu MD Primary Care Provider Buddy Foy NP Primary Care Provider Unavail able [facility], Pcp Primary Care Provider UnavailBuddy Stephen NP Primary Care Provider Unavail able Reason for Visit * Reason Comments E-prescribe Rx Request Encounter Details Date Type Department Care Team Description 10/07/2017 Refill Adult Medicine [address] [address] Celina Mann DO E-prescribe Rx Request Social [...] an upcoming appointment? No-unable to reach left [facility] to call for appointment due to refill request. Appt due (THE MEDICATION REQUESTED IS ON THE MED LIST ABOVE) All of the medications requested were on the CURRENT MEDS list Did you check the Pharmacy information above?: YES Patient wants: 30 -day supply Is this a mail order prescription request ? NO Patients current insurance carrier is: Payor: [employer] / Plan: [employer] $20 [employer] [id number] / Product Type: StremorO [id number] documented in this encounter Plan of Treatment Not on file documented as of this encounter Visit Diagnoses Not on filedocumented in this encounter Care Teams Adult Literacy Instructor Relationship Specialty Start Date End Date Celina Mann DO PCP - General Internal Medicine 03/21/16 11/23/20 Mercedes Han MD [address] [place] [address] PCP - General Internal Medicine 11/24/20 01/11/21 Callum Hernandez DO [address] [place] [address] PCP - General Internal Medicine 01/12/21 03/19/21 Lopez Brennan MD [address] [place] [address] PCP - General Internal Medicine 03/20/21 10/19/21 Buddy Shaw NP [address] [place], [place] [address] PCP - General Family Practice 10/20/21 01/04/22 [place] [address] PCP - General Internal Medicine 01/05/22 11/28/22 Buddy Shaw NP [address] [facility] [place] [address] PCP - General Family Practice 11/29/22 documented as of this encounter
--- OUTSIDE RECORDS SUMMARY | 2025-05-18 17:56 | XMS_ITS | Encounter Summary ---
Author Organization [employer] [facility] Prior to 04/03/2024 Address [address] [place] [address] Care Team Providers Care Pipe Fitter Gas Pipe Name Role Phone Celina Mann DO Primary Care Pro vider Unavailable Mercedes Han MD Primary Care Provider Callum Hernandez DO Primary Care Provider Lopez Lu MD Primary Care Provider Buddy Foy NP Primary Care Provider Unavail able [facility], Pcp Primary Care Provider UnavailBuddy Stephen NP Primary Care Provider Unavail able Reason for Visit * Reason Comments E-prescribe Rx Request Encounter Details Date Type Department Care Team Description 05/14/2019 Refill Adult Medicine [address] [address] Celina Mann DO E-prescribe Rx Request Social [...] Ann 04/06/19 * Telephone Encounter - Arin Solano - 05/14/2019 8:56 AM EST Patient would [...] N/A Patients current insurance carrier is: Payor: [employer] / Plan: HMO $20 MEYERS CHUCK 1 / Product Type: HMO [id number] documented in this encounter Plan of Treatment Not on file documented as of this encounter Visit Diagnoses Not on filedocumented in this encounter Care Teams Pipe Fitter Gas Pipe Relationship Specialty Start Date End Date Celina Mann DO PCP - General Internal Medicine 03/21/16 11/23/20 Mercedes Han MD [address] [place], [place] [phone] PCP - General Internal Medicine 11/24/20 01/11/21 Callum Hernandez DO [address] [place] [address] PCP - General Internal Medicine 01/12/21 03/19/21 Lopez Brennan MD [address] [place], [place] [phone] PCP - General Internal Medicine 03/20/21 10/19/21 Buddy Shaw NP [address] [place] [address] PCP - General Family Practice 10/20/21 01/04/22 [facility], Pcp [address] [place] [address] PCP - General Internal Medicine 01/05/22 11/28/22 Buddy Shaw NP [address] [place] [address] PCP - General Family Practice 11/29/22 documented as of this encounter
--- OUTSIDE RECORDS SUMMARY | 2025-05-18 17:56 | XMS_ITS | Encounter Summary ---
Author Organization [employer] [facility] Prior to 04/03/2024 Address [address] [place] [address] Care Team Providers Care Bag Liner Name Role Phone Celina Mann DO Primary Care Pro vider Unavailable Mercedes Han MD Primary Care Provider [phone] Callum Hernandez DO Primary Care Provider Lopez Lu MD Primary Care Provider Buddy Foy NP Primary Care Provider Unavail [facility] Primary Care Provider Buddy Marlow NP Primary Care Provider Unavail [facility] Encounter Details Date Type Department Care Team Description 08/27/2019 Geriatric Social Worker Report Medical Records [address] [place] [address] Abstract, Provider Social History Tobacco Use Types [...] on filedocumented in this encounter Care Teams Bag Liner Relationship Specialty Start Date End Date Celina Mann DO PCP - General Internal Medicine 03/21/16 11/23/20 Mercedes Han MD [address] [place] [address] PCP - General Internal Medicine 11/24/20 01/11/21 Callum Hernandez DO [address] [place] [address] PCP - General Internal Medicine 01/12/21 03/19/21 Lopez Brennan MD [address] [place], [place] [phone] PCP - General Internal Medicine 03/20/21 10/19/21 uBddy Shaw NP [address] [place] [address] PCP - General Family Practice 10/20/21 01/04/22 [facility], [place] [phone] PCP - General Internal Medicine 01/05/22 11/28/22 Buddy Shaw NP [address] [place] [address] PCP - General Family Practice 11/29/22 documented as of this encounter
--- OUTSIDE RECORDS SUMMARY | 2025-05-18 17:56 | XMS_ITS | Encounter Summary ---
Author Organization [employer] [facility] Prior to 04/03/2024 Address [address] [place] [address] Care Team Providers Care Air Hole Driller Name Role Phone Luciano Skinner MD Primary Care Provider Katherine Blake Bourgeois MD Primary Care Provider Unavail able Celina Mann DO Primary Care Pro vider Unavailable Mercedes Han MD Primary Care Provider [phone] Celina Mann DO Primary Care Pro vider Unavailable Mercedes Han MD Primary Care Provider [phone] Callum Hernandez DO Primary Care Provider Katherine Lopez Aragon MD Primary Care Provider Buddy Foy NP Primary Care Provider Unavail able [facility], Pcp Primary Care Provider UnavailBuddy Stephen NP Primary Care Provider Unavail able Encounter Details Date Type Department Care Team Description 01/27/2013 Teleradiologist Report Medical Records [address] [place] [address] Jesús Martinez Social History Tobacco Use Types [...] on filedocumented in this encounter Care Teams Air Hole Driller Relationship Specialty Start Date End Date Brody, Luciano M., MD PCP - General 12/13/10 05/10/14 Blake Rivera MD PCP - General Internal Medicine 05/11/14 03/03/15 Celina Mann, PCP - General Internal Medicine 03/04/15 02/06/16 Mercedes Han MD [address] [place] [address] PCP - General Internal Medicine 02/07/16 03/20/16 Celina Mann, PCP - General Internal Medicine 03/21/16 11/23/20 Mercedes Han MD [address] [place] [address] PCP - General Internal Medicine 11/24/20 01/11/21 Callum Hernandez DO [address] [place] [address] PCP - General Internal Medicine 01/12/21 03/19/21 Lopez Brennan MD [address] [place] [address] PCP - General Internal Medicine 03/20/21 10/19/21 Buddy Shaw NP [address] [place] [address] PCP - General Family Practice 10/20/21 01/04/22 [facility], Pcp [address] [place] [address] PCP - General Internal Medicine 01/05/22 11/28/22 Buddy Shaw NP [address] [place] [address] PCP - General Family Practice 11/29/22 documented as of this encounter
--- OUTSIDE RECORDS SUMMARY | 2025-05-18 17:56 | XMS_ITS | Encounter Summary ---
Author Organization [employer] [facility] Prior to 04/03/2024 Address [address] [place] [address] Care Team Providers Care Shelver Name Role Phone Celina Mann DO Primary Care Pro vider Unavailable Mercedes Han MD Primary Care Provider [phone] Callum Hernandez DO Primary Care Provider Lopez Lu MD Primary Care Provider Buddy Foy NP Primary Care Provider Unavail [facility] Primary Care Provider Buddy Marlow NP Primary Care Provider Unavail able Encounter Details Date Type Department Care Team Description 11/16/2019 Laser Beam Cutter Report Medical Records [address] [place] [address] [facility] Social History Tobacco Use Types Packs/Day [...] on filedocumented in this encounter Care Teams Shelver Relationship Specialty Start Date End Date Celina Mann DO PCP - General Internal Medicine 03/21/16 11/23/20 Mercedes Han MD [address] [place] [address] PCP - General Internal Medicine 11/24/20 01/11/21 Callum Hernandez DO [address] [place] [address] PCP - General Internal Medicine 01/12/21 03/19/21 Lopez Brennan MD [address] [place] [address] PCP - General Internal Medicine 03/20/21 10/19/21 Buddy Shaw NP [address] [place], [place] [phone] PCP - General Family Practice 10/20/21 01/04/22 [facility], Pcp [address] [place] [address] PCP - General Internal Medicine 01/05/22 11/28/22 Buddy Shaw NP [address] [place] [address] PCP - General Family Practice 11/29/22 documented as of this encounter
--- OUTSIDE RECORDS SUMMARY | 2025-05-18 17:56 | XMS_ITS | Encounter Summary ---
Author Organization [employer] [facility] Prior to 04/03/2024 Address [address] [place] [address] Care Team Providers Care Timing Machine Operator Name Role Phone Lopez Brennan MD Primary Care Provider Buddy Foy NP Primary Care Provider Unavail able [facility], Pcp Primary Care Provider Buddy Marlow NP Primary Care Provider Unavail able Reason for Visit * Reason Onset Date Comments APPOINTMENT 10/09/2021 Encounter Details Date Type Department Care Team Description 10/09/2021 Telephone Pulmonology [facility] [address] [facility] [address] [place] [address] [address] [address] [address] [place] [address] APPOINTMENT Social History Tobacco Use Types Packs/Day [...] on filedocumented in this encounter Care Teams Timing Machine Operator Relationship Specialty Start Date End Date Keily Brennan-MD Kranthi PCP - General Internal Medicine 03/20/21 10/19/21 Buddy Shaw NP PCP - General Family Practice 10/20/21 01/04/22 [facility], Pcp PCP - General Internal Medicine 01/05/22 11/28/22 Buddy Shaw NP PCP - General Family Practice 11/29/22 documented as of this encounter
--- OUTSIDE RECORDS SUMMARY | 2025-05-18 17:56 | XMS_ITS | Encounter Summary ---
Author Organization [employer] [facility] Prior to 04/03/2024 Address [address] [place] [address] Care Team Providers Care Coroner'S Juror Name Role Phone Luciano Skinner MD Primary Care Provider Katherine Blake Bourgeois MD Primary Care Provider Unavail able Celina Mann DO Primary Care Pro vider Unavailable Mercedes Han MD Primary Care Provider [phone] Celina Mann DO Primary Care Pro vider Unavailable Mercedes Han MD Primary Care Provider + [phone] Callum Heranndez DO Primary Care Provider Katherine Lopez Aragon MD Primary Care Provider Buddy Foy NP Primary Care Provider Unavail able [facility], Pcp Primary Care Provider UnavailBuddy Stephen NP Primary Care Provider Unavail able Encounter Details Date Type Department Care Team Description 02/17/2013 [facility] Medical Records [address] [place] [address] Nilton Kumar Social History Tobacco Use Types [...] on filedocumented in this encounter Care Teams Coroner'S Juror Relationship Specialty Start Date End Date Luciano Skinner MD PCP - General 12/13/10 05/10/14 Blake Rivera MD PCP - General Internal Medicine 05/11/14 03/03/15 Celina Mann, PCP - General Internal Medicine 03/04/15 02/06/16 Mercedes Han MD [address] [place], [place] [id number] PCP - General Internal Medicine 02/07/16 03/20/16 Celina Mann, PCP - General Internal Medicine 03/21/16 11/23/20 Mercedes Han MD [address] [place] [address] 32788 PCP - General Internal Medicine 11/24/20 01/11/21 Callum Hernandez DO [address] [place], [place] [id number] PCP - General Internal Medicine 01/12/21 03/19/21 Lopez Brennan MD [address] [place] [address] 17123 PCP - General Internal Medicine 03/20/21 10/19/21 Buddy Shaw NP [address] [place] [address] 48503 PCP - General Family Practice 10/20/21 01/04/22 [facility], Pcp [address] [place] [address] 27795 PCP - General Internal Medicine 01/05/22 11/28/22 Buddy Shaw NP [address] [place], [place] [id number] PCP - General Family Practice 11/29/22 documented as of this encounter
--- OUTSIDE RECORDS SUMMARY | 2025-05-18 17:56 | XMS_ITS | Encounter Summary ---
Author Organization [employer] [facility] Prior to 04/03/2024 Address [address] [place] [address] Care Team Providers Care Hospice Physician Name Role Phone Luciano Skinner MD Primary Care Provider Katherine Blake Bourgeois MD Primary Care Provider Unavail able Celina Mann DO Primary Care Pro vider Unavailable Mercedes Han MD Primary Care Provider [phone] Celina Mann DO Primary Care Pro vider Unavailable Mercedes Han MD Primary Care Provider + [phone] Callum Hernandez DO Primary Care Provider Katherine Lopez Aragon MD Primary Care Provider Buddy Foy NP Primary Care Provider Unavail able [facility], Pcp Primary Care Provider UnavailBuddy Stephen NP Primary Care Provider Unavail able Encounter Details Date Type Department Care Team Description 10/02/2013 Hospital Medical Records [address] [place] [address] Danica Rojo Social History Tobacco Use Types [...] on filedocumented in this encounter Care Teams Hospice Physician Relationship Specialty Start Date End Date Luciano Skinner MD PCP - General 12/13/10 05/10/14 Blake Rivera MD PCP - General Internal Medicine 05/11/14 03/03/15 Celina Mann, PCP - General Internal Medicine 03/04/15 02/06/16 Mercedes Han MD [address] [place] [address] PCP - General Internal Medicine 02/07/16 03/20/16 Celina Mann, PCP - General Internal Medicine 03/21/16 11/23/20 Mercedes Han MD [address] [place] [address] PCP - General Internal Medicine 11/24/20 01/11/21 Callum Hernandez DO [address] [place], [place] [address] PCP - General Internal Medicine 01/12/21 03/19/21 Lopez Brennan MD [address] [place] [address] 23791 PCP - General Internal Medicine 03/20/21 10/19/21 Buddy Shaw NP [address] [place] [address] 42795 PCP - General Family Practice 10/20/21 01/04/22 [facility], Pcp [address] [place] [address] 80106 PCP - General Internal Medicine 01/05/22 11/28/22 Buddy Shaw NP [address] [place], [place] [address] PCP - General Family Practice 11/29/22 documented as of this encounter
--- OUTSIDE RECORDS SUMMARY | 2025-05-18 17:56 | XMS_ITS | Encounter Summary ---
Author Organization [facility] [facility] Prior to 04/03/2024 Address [address] [place] [address] Care Team Providers Care Manufacturing Engineering Director Name Role Phone Luciano Skinner MD Primary Care Provider Katherine Blake Bourgeois MD Primary Care Provider Unavail able Celina Mann DO Primary Care Pro vider Unavailable Mercedes Han MD Primary Care Provider + [phone] Celina Mann DO Primary Care Pro vider Unavailable Mercedes Han MD Primary Care Provider + [phone] Callum Hernandez DO Primary Care Provider Katherine Lopez Aragon MD Primary Care Provider Buddy Foy NP Primary Care Provider Unavail able [facility], Pcp Primary Care Provider UnavailBuddy Stephen NP Primary Care Provider Unavail able Encounter Details Date Type Department Care Team Description 04/18/2011 Proposal Consultant Report Medical Records [address] [place] [address] Chi Pierre Social History Tobacco Use Types [...] on filedocumented in this encounter Care Teams Manufacturing Engineering Director Relationship Specialty Start Date End Date Luciano Skinner MD PCP - General 12/13/10 05/10/14 Blake Rivera MD PCP - General Internal Medicine 05/11/14 03/03/15 Celina Mann, PCP - General Internal Medicine 03/04/15 02/06/16 Mercedes Han MD [address] [place] [address] 24955 PCP - General Internal Medicine 02/07/16 03/20/16 Celina Mann, PCP - General Internal Medicine 03/21/16 11/23/20 Mercedes Han MD [address] [place] [address] 19850 PCP - General Internal Medicine 11/24/20 01/11/21 Callum Hernandez DO [address] [place] [address] 40264 PCP - General Internal Medicine 01/12/21 03/19/21 Lopez Brennan MD [address] [place] [address] 66077 PCP - General Internal Medicine 03/20/21 10/19/21 Buddy Shaw NP [address] [place] [address] 01157 PCP - General Family Practice 10/20/21 01/04/22 [facility], Pcp [address] [place] [address] 43680 PCP - General Internal Medicine 01/05/22 11/28/22 Buddy Shaw NP [address] [place] [address] 99938 PCP - General Family Practice 11/29/22 documented as of this encounter
--- OUTSIDE RECORDS SUMMARY | 2025-05-18 17:56 | XMS_ITS | Encounter Summary ---
Author Organization [facility] Prior to 04/03/2024 Address [address] [place] [address] Care Team Providers Care Weatherization Specialist Name Role Phone Celina Mann DO Primary Care Pro vider Unavailable Mercedes Han MD Primary Care Provider [phone] Callum Hernandez DO Primary Care Provider Lopez Lu MD Primary Care Provider Buddy Foy NP Primary Care Provider Unavail able [facility], Pcp Primary Care Provider Buddy Marlow NP Primary Care Provider Unavail able Reason for Referral * EXTERNAL (Routine) - Authorized/Booked Specialty Diagnoses / Procedures Referred By Kailey dominguez Referred To Contact PAIN MANAGEMENT / Pain Management Procedures REFERRAL TO PAIN MANAGEMENT Jo Ann Clinton PA-C [address] [place] [address] Maddy Iraheta NP [address] [place] [address] [place] [id number] Referral ID Status Reason Start Date Expiration Date V isits Requested Visits Authorized SEE NOTE Authorized/B ooked 04/20/2019 07/24/2019 1 1 Reason for Visit * Reason Onset Date Comments Repairer Evaporator Feedback 04/20/2019 pain management referral Encounter Details Date Type Department Care Team Description 04/20/2019 Telephone Adult Medicine [address] [address] Celina Mann DO Repairer Evaporator Feedback (pain management referral ) Social History [...] on filedocumented in this encounter Care Teams Weatherization Specialist Relationship Specialty Start Date End Date Celina Mann DO PCP - General Internal Medicine 03/21/16 11/23/20 Mercedes Han MD [address] [place] [address] 470[address] PCP - General Internal Medicine 11/24/20 01/11/21 Callum Hernandez DO [address] [place] [address] 01489 PCP - General Internal Medicine 01/12/21 03/19/21 Lopez Brennan MD [address] [place] [address] 11175 PCP - General Internal Medicine 03/20/21 10/19/21 Buddy Shaw NP [address] [place] [address] 38628 PCP - General Family Practice 10/20/21 01/04/22 [facility], Pcp [address] [place] [address] PCP - General Internal Medicine 01/05/22 11/28/22 Buddy Shaw NP [address] [place] [address] PCP - General Family Practice 11/29/22 documented as of this encounter
--- OUTSIDE RECORDS SUMMARY | 2025-05-18 17:56 | XMS_ITS | Encounter Summary ---
Author Organization [facility] Prior to 04/03/2024 Address [address] [place] [address] Care Team Providers Care Highway Maintainer Name Role Phone Lopez Brennan MD Primary Care Provider Buddy Foy NP Primary Care Provider Unavail able [facility], Pcp Primary Care Provider Buddy Marlow NP Primary Care Provider Unavail able Encounter Details Date Type Department Care Team Description 10/10/2021 Orders Only [facility] Thoracic Surgery [place] [address] [facility] [address] [place] [address] [id number] Simón Hamlin MD [address] [facility] [address] [place] [address] History of tobacco use, presenting hazards to [...] health documented in this encounter Care Teams Highway Maintainer Relationship Specialty Start Date End Date Lopez Brennan MD PCP - General Internal Medicine 03/20/21 10/19/21 Buddy Shaw NP PCP - General Family Practice 10/20/21 01/04/22 [facility] PCP - General Internal Medicine 01/05/22 11/28/22 Buddy Shaw NP PCP - General Family Practice 11/29/22 documented as of this encounter
--- OUTSIDE RECORDS SUMMARY | 2025-05-18 17:56 | XMS_ITS | Encounter Summary ---
Author Organization [facility] Prior to 04/03/2024 Address [address] [place] [address] Care Team Providers Care Email Specialist Name Role Phone Luciano Skinner MD Primary Care Provider Katherine Blake Bourgeois MD Primary Care Provider Unavail able Celina Mann DO Primary Care Pro vider Unavailable Mercedes Han MD Primary Care Provider + [phone] Celina Mann DO Primary Care Pro vider Unavailable Mercedes Han MD Primary Care Provider + [phone] Callum Hernandez DO Primary Care Provider Katherine Lopez Aragon MD Primary Care Provider Buddy Foy NP Primary Care Provider Unavail able [facility], Pcp Primary Care Provider UnavailBuddy Stephen NP Primary Care Provider Unavail able Encounter Details Date Type Department Care Team Description 09/07/2013 Cotton Stomper Report Medical Records [address] [place] [address] Nilton Kumar Social History Tobacco Use Types [...] on filedocumented in this encounter Care Teams Email Specialist Relationship Specialty Start Date End Date Brody, Luciano M., MD PCP - General 12/13/10 05/10/14 Blake Rivera MD PCP - General Internal Medicine 05/11/14 03/03/15 Celina Mann, PCP - General Internal Medicine 03/04/15 02/06/16 Mercedes Han MD [address] [place] [address] PCP - General Internal Medicine 02/07/16 03/20/16 Celina Mann, PCP - General Internal Medicine 03/21/16 11/23/20 Mercedes Han MD [address] [place] [address] PCP - General Internal Medicine 11/24/20 01/11/21 Callum Hernandez DO [address] [place] [address] PCP - General Internal Medicine 01/12/21 03/19/21 Lopez Brennan MD [address] [place] [address] 78265 PCP - General Internal Medicine 03/20/21 10/19/21 Buddy Shaw NP [address] [place] [address] 86339 PCP - General Family Practice 10/20/21 01/04/22 [facility], Pcp [address] [place] [address]44 PCP - General Internal Medicine 01/05/22 11/28/22 Buddy Shaw NP [address] [place] [address] 18268 PCP - General Family Practice 11/29/22 documented as of this encounter
[2025-05-18 17:57] LABS: Resp Syncy Virus RNA Qual PCR NEGATIVE (Negative); SARS COV2 PCR INHOUSE NEGATIVE (Negative)
--- OUTSIDE RECORDS SUMMARY | 2025-05-18 17:57 | XMS_ITS | Encounter Summary ---
Author Organization [facility] Prior to 04/03/2024 Address [address] [place] [address] Care Team Providers Care Coconut Cooker Name Role Phone Luciano Skinner MD Primary Care Provider Katherine Javed Lindsay MD Primary Care Provider Unav Blake Pulido MD Primary Care Provider Unavail able Celina Mann DO Primary Care Pro vider Unavailable Mercedes Han MD Primary Care Provider [phone] Celina Mann DO Primary Care Pro vider Unavailable Mercedes Han MD Primary Care Provider [phone] Callum Hernandez DO Primary Care Provider Katherine Lopez Aragon MD Primary Care Provider Buddy Foy NP Primary Care Provider Unavail able [facility] Primary Care Provider UnavailBuddy Stephen NP Primary Care Provider Unavail able Encounter Details Date Type Department Care Team Description 12/12/2005 Hospital Medical Records [address] [place] [address] Olvin Joseph MD Social History Tobacco Use [...] on filedocumented in this encounter Care Teams Coconut Cooker Relationship Specialty Start Date End Date Luciano Skinner MD PCP - General 12/13/10 05/10/14 Javed Kulkarni MD PCP - General 03/15/00 12/12/10 Blake Rivera MD PCP - General Internal Medicine 05/11/14 03/03/15 Celina Mann, PCP - General Internal Medicine 03/04/15 02/06/16 Mercedes Han MD [address] [place] [address] PCP - General Internal Medicine 02/07/16 03/20/16 Celina Mann, PCP - General Internal Medicine 03/21/16 11/23/20 Mercedes Han MD [address] [place] [address] 46095 PCP - General Internal Medicine 11/24/20 01/11/21 Callum Hernandez DO [address] [place] [address] 79685 PCP - General Internal Medicine 01/12/21 03/19/21 Lopez Brennan MD [address] [place] [address] 34092 PCP - General Internal Medicine 03/20/21 10/19/21 Buddy Shaw NP [address] [place] [address] 00760 PCP - General Family Practice 10/20/21 01/04/22 [facility], [address] [address] PCP - General Internal Medicine 01/05/22 11/28/22 Buddy Shaw NP [address] [place] [address] PCP - General Family Practice 11/29/22 documented as of this encounter
--- OUTSIDE RECORDS SUMMARY | 2025-05-18 17:57 | XMS_ITS | Encounter Summary ---
Author Organization [facility] Prior to 04/03/2024 Address [address] [place] [address] Care Team Providers Care Lining Caser Name Role Phone Luciano Skinner MD Primary Care Provider Katherine Blake Bourgeois MD Primary Care Provider Unavail able Celina Mann DO Primary Care Pro vider Unavailable Mercedes Han MD Primary Care Provider [phone] Celina Mann DO Primary Care Pro vider Unavailable Mercedes Han MD Primary Care Provider [phone] Callum Hernandez DO Primary Care Provider Katherine Lopez Aragon MD Primary Care Provider Buddy Foy NP Primary Care Provider Unavail able [facility], Pcp Primary Care Provider UnavailBuddy Stephen NP Primary Care Provider Unavail able Reason for Visit * Reason Onset Date Comments Provider Call Back 07/03/2011 Encounter Details Date Type Department Care Team Description 07/03/2011 Telephone Physiatry - [place] [address] [place] [address] Sammy Mcintyre DO Provider Call Back Social [...] degenerative changes. * Telephone Encounter - Kaylyn Lyons - 07/03/2011 8:59 AM EST Patient calling stating she had xrays and was to hear from Dr. Mcintyre about the results. Please call work number till 4:30 documented in this encounter Plan of Treatment Not on file documented as of this encounter Visit Diagnoses Not on filedocumented in this encounter Care Teams Lining Caser Relationship Specialty Start Date End Date Luciano Skinner MD PCP - General 12/13/10 05/10/14 Blake Rivera MD PCP - General Internal Medicine 05/11/14 03/03/15 Celina Mann, PCP - General Internal Medicine 03/04/15 02/06/16 Mercedes Han MD [address] [place] [address] PCP - General Internal Medicine 02/07/16 03/20/16 Celina Mann, PCP - General Internal Medicine 03/21/16 11/23/20 Mercedes Han MD [address] [place] [address] 05995 PCP - General Internal Medicine 11/24/20 01/11/21 Callum Hernandez DO [address] [place] [address] 09451 PCP - General Internal Medicine 01/12/21 03/19/21 Lopez Brennan MD [address] [place] [address] 23338 PCP - General Internal Medicine 03/20/21 10/19/21 Buddy Shaw NP [address] [place] [address] 54003 PCP - General Family Practice 10/20/21 01/04/22 [facility], Pcp [address] [place] [address] PCP - General Internal Medicine 01/05/22 11/28/22 Buddy Shaw NP [address] [place] [address] PCP - General Family Practice 11/29/22 documented as of this encounter
--- OUTSIDE RECORDS SUMMARY | 2025-05-18 17:57 | XMS_ITS | Encounter Summary ---
Author Organization [facility] [employer] [facility] Prior to 04/03/2024 Address [address] [place] [address] Care Team Providers Care Candle Wrapping Machine Operator Name Role Phone Luciano Skinner MD Primary Care Provider Katherine Blake Bourgeois MD Primary Care Provider Unavail able Celina Mann DO Primary Care Pro vider Unavailable Mercedes Han MD Primary Care Provider [phone] Celina Mann DO Primary Care Pro vider Unavailable Mercedes Han MD Primary Care Provider [phone] Callum Hernandez DO Primary Care Provider Katherine Lopez Aragon MD Primary Care Provider Buddy Foy NP Primary Care Provider Unavail able [facility], Pcp Primary Care Provider UnavailBuddy Stephen NP Primary Care Provider Unavail able Encounter Details Date Type Department Care Team Description 12/21/2011 Pt. Non Urgent Medical Question Adult Medicine [address] [address] Luciano Skinner MD Social History Tobacco Use [...] M.A. - 12/21/2011 10:56 AM EDTFrom: NEREIDA VILLAFUERTE To: Luciano Skinner MD Sent: SatDec 21, 2011 10:53 AM Subject: MRI I returned home yesterday from vac. and I got your message, I can not tell you how relieved I am. Iguess my anxiety is making me crazy? my question is do I keep my appointment with Dr. Marion Luna (Neurologist) on December 26,? Thank you Arianna Clineney documented in this encounter Plan of Treatment Not on file documented as of this encounter Visit Diagnoses Not on filedocumented in this encounter Care Teams Candle Wrapping Machine Operator Relationship Specialty Start Date End Date Luciano Skinner MD PCP - General 12/13/10 05/10/14 Blake Rivera MD PCP - General Internal Medicine 05/11/14 03/03/15 Celina Mann DO PCP - General Internal Medicine 03/04/15 02/06/16 Mercedes Han MD [address] [place] [address] PCP - General Internal Medicine 02/07/16 03/20/16 Celina Mann DO PCP - General Internal Medicine 03/21/16 11/23/20 Mercedes Han MD [address] [place] [address] PCP - General Internal Medicine 11/24/20 01/11/21 Callum Hernandez DO [address] [place] [address] 70629 PCP - General Internal Medicine 01/12/21 03/19/21 Lopez Brennan MD [address] [place] [address] 66883 PCP - General Internal Medicine 03/20/21 10/19/21 Buddy Shaw NP [address] [place] [address] 25659 PCP - General Family Practice 10/20/21 01/04/22 [facility], Pcp [address] [place] [address] 19842 PCP - General Internal Medicine 01/05/22 11/28/22 Buddy Shaw NP [address] [facility] [place] [address] PCP - General Family Practice 11/29/22 documented as of this encounter
--- OUTSIDE RECORDS SUMMARY | 2025-05-18 17:57 | XMS_ITS | Encounter Summary ---
Author Organization [employer] [facility] Prior to 04/03/2024 Address [address] [place] [address] Care Team Providers Care Forward Air Controller/Air Officer Name Role Phone Celina Mann DO Primary Care Pro vider Unavailable Mercedes Han MD Primary Care Provider [phone] Callum Hernandez DO Primary Care Provider Lopez Lu MD Primary Care Provider Buddy Foy NP Primary Care Provider Unavail able [facility] Pcp Primary Care Provider Buddy Marlow NP Primary Care Provider Unavail able Encounter Details Date Type Department Care Team Description 04/11/2016 Release of Information Medical Records [address] [place] [address] Abstract, Provider Social History Tobacco Use Types [...] on filedocumented in this encounter Care Teams Forward Air Controller/Air Officer Relationship Specialty Start Date End Date Celina Mann DO PCP - General Internal Medicine 03/21/16 11/23/20 Mercedes Han MD [address] [place] [address]75 PCP - General Internal Medicine 11/24/20 01/11/21 Callum Hernandez DO [address] [place] [address] PCP - General Internal Medicine 01/12/21 03/19/21 Lopez Brennan MD [address] [place] [address]64 PCP - General Internal Medicine 03/20/21 10/19/21 Buddy Shaw NP [address] [place] [address] 22992 PCP - General Family Practice 10/20/21 01/04/22 [facility], Pcp [address] [place] [address] 68290 PCP - General Internal Medicine 01/05/22 11/28/22 Buddy Shaw NP [address] [place], [place] [phone] PCP - General Family Practice 11/29/22 documented as of this encounter
--- OUTSIDE RECORDS SUMMARY | 2025-05-18 17:57 | XMS_ITS | Encounter Summary ---
Author Organization [facility] Prior to 04/03/2024 Address [address] [place] [address] Care Team Providers Care City Bailiff Name Role Phone Luciano Skinner MD Primary Care Provider Katherine Blake Bourgeois MD Primary Care Provider Unavail able Celina Mann DO Primary Care Pro vider Unavailable Mercedes Han MD Primary Care Provider [phone] Celina Mann DO Primary Care Pro vider Unavailable Mercedes Han MD Primary Care Provider [phone] Callum Hernandez DO Primary Care Provider Katherine Lopez Aragon MD Primary Care Provider Buddy Foy NP Primary Care Provider Unavail able [facility], Pcp Primary Care Provider UnavailBuddy Stephen NP Primary Care Provider Unavail able Reason for Visit * Reason Onset Date Comments medication problems 03/19/2012 Encounter Details Date Type Department Care Team Description 03/19/2012 Telephone Adult Medicine [address] [address] Luciano Skinner MD medication problems Social History [...] EDT Call * Telephone Encounter - Cristal Mcacrthy - 03/19/2012 9:40 AM EDT Patient given hydrocodone 5/500 mg For pain . Patient states after one dose it did not help with pain , kept her up all night, and now she has a headache . Please advise [phone] documented in this encounter Plan of Treatment Not on file documented as of this encounter Visit Diagnoses Not on filedocumented in this encounter Care Teams City Bailiff Relationship Specialty Start Date End Date Luciano Skinner MD PCP - General 12/13/10 05/10/14 Blake Rivera MD PCP - General Internal Medicine 05/11/14 03/03/15 Celina Mann DO PCP - General Internal Medicine 03/04/15 02/06/16 Mercedes Han MD [address] [place], [place] [id number] PCP - General Internal Medicine 02/07/16 03/20/16 Celina Mann DO PCP - General Internal Medicine 03/21/16 11/23/20 Mercedes Han MD [address] [place] [address] PCP - General Internal Medicine 11/24/20 01/11/21 Callum Hernandez DO [address] [place] [address]272 PCP - General Internal Medicine 01/12/21 03/19/21 Lopez Brennan MD [address] [place] [address] 49722 PCP - General Internal Medicine 03/20/21 10/19/21 Buddy Shaw NP [address] [place], [place] [address] PCP - General Family Practice 10/20/21 01/04/22 [facility], Pcp [address] [place] [address] PCP - General Internal Medicine 01/05/22 11/28/22 Buddy Shaw NP [address] [place] [address] PCP - General Family Practice 11/29/22 documented as of this encounter
--- OUTSIDE RECORDS SUMMARY | 2025-05-18 17:57 | XMS_ITS | Encounter Summary ---
Author Organization [employer] [facility] Prior to 04/03/2024 Address [address] [place] [address] Care Team Providers Care Race Car Mechanic Name Role Phone Luciano Skinner MD Primary Care Provider Katherine Blake Bourgeois MD Primary Care Provider Unavail able Celina Mann DO Primary Care Pro vider Unavailable Mercedes Han MD Primary Care Provider [phone] Celina Mann DO Primary Care Pro vider Unavailable Mercedes Han MD Primary Care Provider + [phone] Callum Hernandez DO Primary Care Provider Katherine Lopez Aragon MD Primary Care Provider Buddy Foy NP Primary Care Provider Unavail able [facility]cp Primary Care Provider UnavailBuddy Stephen NP Primary Care Provider Unavail able Encounter Details Date Type Department Care Team Description 11/25/2012 Division Director Report Medical Records [address] [place] [address] Jesús Martinez Social History Tobacco Use Types [...] on filedocumented in this encounter Care Teams Race Car Mechanic Relationship Specialty Start Date End Date Brody, Luciano M., MD PCP - General 12/13/10 05/10/14 Blake Rivera MD PCP - General Internal Medicine 05/11/14 03/03/15 Celina Mann, PCP - General Internal Medicine 03/04/15 02/06/16 Mercedes Han MD [address] [place] [address] PCP - General Internal Medicine 02/07/16 03/20/16 Celina Mann, PCP - General Internal Medicine 03/21/16 11/23/20 Mercedes Han MD [address] [place] [address] PCP - General Internal Medicine 11/24/20 01/11/21 Callum Hernandez DO [address] [place] [address] PCP - General Internal Medicine 01/12/21 03/19/21 Lopez Brennan MD [address] [place] [address] 00369 PCP - General Internal Medicine 03/20/21 10/19/21 Buddy Shaw NP [address] [place] [address]165 PCP - General Family Practice 10/20/21 01/04/22 [facility] Pcp [address] [place] [address] 35795 PCP - General Internal Medicine 01/05/22 11/28/22 Buddy Shaw NP [address] [place] [address] PCP - General Family Practice 11/29/22 documented as of this encounter
--- OUTSIDE RECORDS SUMMARY | 2025-05-18 17:57 | XMS_ITS | Encounter Summary ---
Author Organization [facility] [employer] [facility] Prior to 04/03/2024 Address [address] [place] [address] Care Team Providers Care Side Gluer Name Role Phone Luciano Skinner MD Primary Care Provider Katherine Blake Bourgeois MD Primary Care Provider Unavail able Celina Mann DO Primary Care Pro vider Unavailable Mercedes Han MD Primary Care Provider [phone] Celina Mann DO Primary Care Pro vider Unavailable Mercedes Han MD Primary Care Provider + [phone] Callum Hernandez DO Primary Care Provider Katherine Lopez Aragon MD Primary Care Provider Buddy Foy NP Primary Care Provider Unavail able [facility], Pcp Primary Care Provider UnavailBuddy Stephen NP Primary Care Provider Unavail able Encounter Details Date Type Department Care Team Description 06/07/2012 Pt. Non Urgent Medical Question Physiatry - [place] [address] [place] [address] Sammy Mcintyre DO Lumbar radiculitis (Primary Dx) [...] unspecified documented in this encounter Care Teams Side Gluer Relationship Specialty Start Date End Date Luciano Skinner MD PCP - General 12/13/10 05/10/14 Blake Rivera MD PCP - General Internal Medicine 05/11/14 03/03/15 Celina Mann DO PCP - General Internal Medicine 03/04/15 02/06/16 Mercedes Han MD [address] [place] [address] PCP - General Internal Medicine 02/07/16 03/20/16 Celina Mann DO PCP - General Internal Medicine 03/21/16 11/23/20 Mercedes Han MD [address] [place] [address] 20961 PCP - General Internal Medicine 11/24/20 01/11/21 Callum Hernandez DO [address] [place] [address] PCP - General Internal Medicine 01/12/21 03/19/21 Lopez Brennan MD [address] [place] [address]71 PCP - General Internal Medicine 03/20/21 10/19/21 Buddy Shaw NP [address] [place] [address] PCP - General Family Practice 10/20/21 01/04/22 [facility], Pcp [address] [place] [address] 89484 PCP - General Internal Medicine 01/05/22 11/28/22 Buddy Shaw NP [address] [place] [address] PCP - General Family Practice 11/29/22 documented as of this encounter
--- OUTSIDE RECORDS SUMMARY | 2025-05-18 17:57 | XMS_ITS | Encounter Summary ---
Author Organization [facility] Prior to 04/03/2024 Address [address] [place] [address] Care Team Providers Care Unscrambler Name Role Phone Luciano Skinner MD Primary Care Provider Katherine Blake Bourgeois MD Primary Care Provider Unavail able Celina Mann DO Primary Care Pro vider Unavailable Mercedes Han MD Primary Care Provider + [phone] Celina Mann DO Primary Care Pro vider Unavailable Mercedes Han MD Primary Care Provider + [phone] Callum Hernandez DO Primary Care Provider Katherine Lopez Aragon MD Primary Care Provider UnaBuddy Castellanos NP Primary Care Provider Unavail able [facility], Pcp Primary Care Provider UnavailBuddy Stephen NP Primary Care Provider Unavail able Reason for Referral * Specialist (Routine) - Authorized/Booked Specialty Diagnoses / Procedures Referred By Contac t Referred To Contact Neurology Procedures REFERRAL TO NEUROLOGY Luciano Skinner MD [address] [place] [address] External Neurology Referral ID Status Reason Start Date Expiration Date V isits Requested Visits Authorized SEE REVIEW 12/11/11 Authorized/ Booked 12/10/2011 03/12/2012 1 1 Encounter Details Date Type Department Care Team Description 12/07/2011 Pt. Non Urgent Medical Question Adult Medicine [address] [place] [address] Luciano Skinner MD Abnormal CT scan of [...] loss documented in this encounter Care Teams Unscrambler Relationship Specialty Start Date End Date Luciano Skinner MD PCP - General 12/13/10 05/10/14 Blake Rivera MD PCP - General Internal Medicine 05/11/14 03/03/15 Celina Mann DO PCP - General Internal Medicine 03/04/15 02/06/16 Mercedes Han MD [address] [place] [address] PCP - General Internal Medicine 02/07/16 03/20/16 Celina Mann DO PCP - General Internal Medicine 03/21/16 11/23/20 Mercedes Han MD [address] [place] [address] PCP - General Internal Medicine 11/24/20 01/11/21 Callum Hernandez DO [address] [place] [address] 97095 PCP - General Internal Medicine 01/12/21 03/19/21 Lopez Brennan MD [address] [place] [address] PCP - General Internal Medicine 03/20/21 10/19/21 Buddy Shaw NP [address] [place] [address] PCP - General Family Practice 10/20/21 01/04/22 [facility], Pcp [address] [place] [address]654 PCP - General Internal Medicine 01/05/22 11/28/22 Buddy Shaw NP [address] [place] [address] PCP - General Family Practice 11/29/22 documented as of this encounter
--- OUTSIDE RECORDS SUMMARY | 2025-05-18 17:57 | XMS_ITS | Encounter Summary ---
Author Organization [employer] [facility] Prior to 04/03/2024 Address [address] [place] [address] Care Team Providers Care Cash Management Associate Name Role Phone Luciano Skinner MD Primary Care Provider Katherine Blake Bourgeois MD Primary Care Provider Unavail able Celina Mann DO Primary Care Pro vider Unavailable Mercedes Han MD Primary Care Provider + [phone] Celina Mann DO Primary Care Pro vider Unavailable Mercedes Han MD Primary Care Provider + [phone] aCllum Hernandez DO Primary Care Provider Katherine Lopez Aragon MD Primary Care Provider Buddy Foy NP Primary Care Provider Unavail able [facility], Pcp Primary Care Provider UnavailBuddy Stephen NP Primary Care Provider Unavail able Encounter Details Date Type Department Care Team Description 12/19/2011 Release of Information Medical Records [address] [place] [address] Abstract, Provider Social History Tobacco Use Types [...] on filedocumented in this encounter Care Teams Cash Management Associate Relationship Specialty Start Date End Date Luciano Skinner MD PCP - General 12/13/10 05/10/14 Blake Rivera MD PCP - General Internal Medicine 05/11/14 03/03/15 Celina Mann, PCP - General Internal Medicine 03/04/15 02/06/16 Mercedes Han MD [address] [place] [address] PCP - General Internal Medicine 02/07/16 03/20/16 Celina Mann, PCP - General Internal Medicine 03/21/16 11/23/20 Mercedes Han MD [address] [place] [address] 6[address]19 PCP - General Internal Medicine 11/24/20 01/11/21 Callum Hernandez DO [address] [place] [address] 91200 PCP - General Internal Medicine 01/12/21 03/19/21 Lopez Brennan MD [address] [place] [address] 90029 PCP - General Internal Medicine 03/20/21 10/19/21 Buddy Shaw NP [address] [place] [address] 26590 PCP - General Family Practice 10/20/21 01/04/22 [facility], Pcp [address] [place] [address]141 PCP - General Internal Medicine 01/05/22 11/28/22 Buddy Shaw NP [address] [place] [address] PCP - General Family Practice 11/29/22 documented as of this encounter
--- OUTSIDE RECORDS SUMMARY | 2025-05-18 17:57 | XMS_ITS | Encounter Summary ---
Author Organization [employer] [facility] Prior to 04/03/2024 Address [address] [place] [address] Care Team Providers Care Parquet Floor Layer Name Role Phone Blake Rivera MD Primary Care Provider Unavail able Celina Mann DO Primary Care Pro vider Unavailable Mercedes Han MD Primary Care Provider [phone] Arabella Ulloa, Celina DO Primary Care Pro vider Unavailable Mercedes Han MD Primary Care Provider [phone] Callum Hernandez DO Primary Care Provider Lopez Lu MD Primary Care Provider Buddy Foy NP Primary Care Provider Unavail able [facility] Primary Care Provider Buddy Marlow NP Primary Care Provider Unavail able Encounter Details Date Type Department Care Team Description 06/28/2014 Timers Inspector Report Medical Records [address] [place] [address] Abstract, Provider Social History Tobacco Use Types [...] on filedocumented in this encounter Care Teams Parquet Floor Layer Relationship Specialty Start Date End Date Blake Rivera MD PCP - General Internal Medicine 05/11/14 03/03/15 Celina Mann DO PCP - General Internal Medicine 03/04/15 02/06/16 Mercedes Han MD [address] [place] [address] PCP - General Internal Medicine 02/07/16 03/20/16 Celina Mann, PCP - General Internal Medicine 03/21/16 11/23/20 Mercedes Han MD [address] [place] [address] PCP - General Internal Medicine 11/24/20 01/11/21 Callum Hernandez DO [address] [place] [address] 77073 PCP - General Internal Medicine 01/12/21 03/19/21 Lopez Brennan MD [address] [place] [address] 08204 PCP - General Internal Medicine 03/20/21 10/19/21 Buddy Shaw NP [address] [place] [address] 04698 PCP - General Family Practice 10/20/21 01/04/22 [facility] Pcp [address] [place] [address] 46957 PCP - General Internal Medicine 01/05/22 11/28/22 Buddy Shaw NP [address] [place] [address] 9[address]21 PCP - General Family Practice 11/29/22 documented as of this encounter
--- OUTSIDE RECORDS SUMMARY | 2025-05-18 17:57 | XMS_ITS | Encounter Summary ---
Author Organization [employer] [facility] Prior to 04/03/2024 Address [address] [place] [address] Care Team Providers Care Refractory Tile Helper Name Role Phone Luciano Skinner MD Primary Care Provider Katherine Blake Bourgeois MD Primary Care Provider Unavail able Celina Mann DO Primary Care Pro vider Unavailable Mercedes Han MD Primary Care Provider [phone] Celina Mann DO Primary Care Pro vider Unavailable Mercedes Han MD Primary Care Provider [phone] Callum Hernandez DO Primary Care Provider Katherine Lopez Aragon MD Primary Care Provider Buddy Foy NP Primary Care Provider Unavail able [facility], Pcp Primary Care Provider UnavailBuddy Stephen NP Primary Care Provider Unavail able Encounter Details Date Type Department Care Team Description 09/19/2012 Pt. Non Urgent Medical Question Adult Medicine [address] [address] Luciano Skinner MD Social History Tobacco Use [...] on filedocumented in this encounter Care Teams Refractory Tile Helper Relationship Specialty Start Date End Date Luciano Skinner MD PCP - General 12/13/10 05/10/14 Blake Rivera MD PCP - General Internal Medicine 05/11/14 03/03/15 Celina Mann DO PCP - General Internal Medicine 03/04/15 02/06/16 Mercedes Han MD [address] [place] [address] PCP - General Internal Medicine 02/07/16 03/20/16 Celina Mann DO PCP - General Internal Medicine 03/21/16 11/23/20 Mercedes Han MD [address] [place] [address] PCP - General Internal Medicine 11/24/20 01/11/21 Callum Hernandez DO [address] [place] [address]684 PCP - General Internal Medicine 01/12/21 03/19/21 Lopez Brennan MD [address] [place] [address] 09718 PCP - General Internal Medicine 03/20/21 10/19/21 Bdudy Shaw NP [address] [place] [address] 67969 PCP - General Family Practice 10/20/21 01/04/22 [facility], Pcp [address] [place] [address] 15497 PCP - General Internal Medicine 01/05/22 11/28/22 Buddy Shaw NP [address] [place] [address] 94003 PCP - General Family Practice 11/29/22 documented as of this encounter
--- OUTSIDE RECORDS SUMMARY | 2025-05-18 17:57 | XMS_ITS | Encounter Summary ---
Author Organization [email or web address] [facility] Prior to 04/03/2024 Address [address] [place] [address] Care Team Providers Care Sack Filler Name Role Phone Celina Mann DO Primary Care Pro vider Unavailable Mercedes Han MD Primary Care Provider [phone] Callum Hernandez DO Primary Care Provider Lopez Lu MD Primary Care Provider Buddy Foy NP Primary Care Provider Unavail able [facility], Pcp Primary Care Provider UnavailBuddy Stephen NP Primary Care Provider Unavail able Reason for Visit * Reason Comments E-prescribe Rx Request Encounter Details Date Type Department Care Team Description 09/04/2018 Refill Adult Medicine [address] [address] Sophia Cervantes NP E-prescribe Rx Request Social [...] encounter Miscellaneous Notes * Telephone Encounter - Shiela Slaughter - 09/04/2018 8:41 AM EDT Patient would like script to be: E-PRESCRIBED/FAXED TO PHARMACY WHEN WAS THE PATIENT'S LAST APPOINTMENT IN ADULT MEDICINE? 08/17/18 WHEN WAS THE LAST TIME THE PATIENT SAW THEIR PCP? 07/28/18 Does patient have an upcoming appointment? No-patient [...] N/A Patients current insurance carrier is: Payor: KEILY / Plan: [employer] $20 LILIDahu [id number] / Product Type: [employer] [id number] documented in this encounter Plan of Treatment Not on file documented as of this encounter Visit Diagnoses Not on filedocumented in this encounter Care Teams Sack Filler Relationship Specialty Start Date End Date Celina Mann DO PCP - General Internal Medicine 03/21/16 11/23/20 Mercedes Han MD [address] [place] [address] PCP - General Internal Medicine 11/24/20 01/11/21 Callum Hernandez DO [address] [employer] [employer], [place] [phone] PCP - General Internal Medicine 01/12/21 03/19/21 Lopez Brennan MD [address] [employer] [employer], [place] [address] PCP - General Internal Medicine 03/20/21 10/19/21 Buddy Shaw NP [address] [place] [address] PCP - General Family Practice 10/20/21 01/04/22 [facility], Pcp [address] [place] [address] PCP - General Internal Medicine 01/05/22 11/28/22 Buddy Shaw NP [address] [place] [address] PCP - General Family Practice 11/29/22 documented as of this encounter
--- OUTSIDE RECORDS SUMMARY | 2025-05-18 17:57 | XMS_ITS | Encounter Summary ---
Author Organization [facility] Prior to 04/03/2024 Address [address] [place] [address] Care Team Providers Care Easement Man Name Role Phone Luciano Skinner MD Primary Care Provider Katherine Javed Lindsay MD Primary Care Provider Unav Blake Pulido MD Primary Care Provider Unavail able Celina Mann DO Primary Care Pro vider Unavailable Mercedes Han MD Primary Care Provider [phone] Celina Mann DO Primary Care Pro vider Unavailable Mercedes Han MD Primary Care Provider [phone] Callum Hernandez DO Primary Care Provider Katherine Lopez Aragon MD Primary Care Provider uBddy Foy NP Primary Care Provider Unavail able [facility] Primary Care Provider UnavailBuddy Stephen NP Primary Care Provider Unavail able Encounter Details Date Type Department Care Team Description 08/03/2008 Hospital Medical Records [address] [place] [address] Chi Pierre Social History Tobacco Use Types [...] on filedocumented in this encounter Care Teams Easement Man Relationship Specialty Start Date End Date Luciano Skinner MD PCP - General 12/13/10 05/10/14 Javed Kulkarni MD PCP - General 03/15/00 12/12/10 Blake Rivera MD PCP - General Internal Medicine 05/11/14 03/03/15 Celina Mann, PCP - General Internal Medicine 03/04/15 02/06/16 Mercedes Han MD [address] [place] [address]60 PCP - General Internal Medicine 02/07/16 03/20/16 Celina Mann, PCP - General Internal Medicine 03/21/16 11/23/20 Mercedes Han MD [address] [place] [address] 29005 PCP - General Internal Medicine 11/24/20 01/11/21 Callum Hernandez DO [address] [place] [address] 42842 PCP - General Internal Medicine 01/12/21 03/19/21 Lopez Brennan MD [address] [place] [address] 39148 PCP - General Internal Medicine 03/20/21 10/19/21 Buddy Shaw NP [address] [place] [address] 76331 PCP - General Family Practice 10/20/21 01/04/22 [facility], [address] [address] PCP - General Internal Medicine 01/05/22 11/28/22 Buddy Shaw NP [address] [place] [address] 65565 PCP - General Family Practice 11/29/22 documented as of this encounter
--- OUTSIDE RECORDS SUMMARY | 2025-05-18 17:57 | XMS_ITS | Encounter Summary ---
Author Organization [employer] [facility] Prior to 04/03/2024 Address [address] [place] [address] Care Team Providers Care Hemodialysis Charge Nurse Name Role Phone Celina Mann DO Primary Care Pro vider Unavailable Mercedes Han MD Primary Care Provider [phone] Callum Hernandez DO Primary Care Provider Lopez Lu MD Primary Care Provider Buddy Foy NP Primary Care Provider Unavail able [facility] Primary Care Provider Buddy Marlow NP Primary Care Provider Unavail able Encounter Details Date Type Department Care Team Description 08/25/2018 Release of Information Medical Records [address] [place] [address] Abstract, Provider Social History Tobacco Use Types [...] on filedocumented in this encounter Care Teams Hemodialysis Charge Nurse Relationship Specialty Start Date End Date Celina Mann DO PCP - General Internal Medicine 03/21/16 11/23/20 Mercedes Han MD [address] [place] [address] PCP - General Internal Medicine 11/24/20 01/11/21 Callum Hernandez DO [address] [place] [address] PCP - General Internal Medicine 01/12/21 03/19/21 Lopez Brennan MD [address] [place], [place] [phone] PCP - General Internal Medicine 03/20/21 10/19/21 Buddy Shaw NP [address] [place] [address] PCP - General Family Practice 10/20/21 01/04/22 [facility] [place] [id number] PCP - General Internal Medicine 01/05/22 11/28/22 Buddy Shaw NP [address] [place] [address] PCP - General Family Practice 11/29/22 documented as of this encounter
--- OUTSIDE RECORDS SUMMARY | 2025-05-18 17:57 | XMS_ITS | Encounter Summary ---
Author Organization [employer] [facility] Prior to 04/03/2024 Address [address] [place] [address] Care Team Providers Care Rivet Tester Name Role Phone Luciano Skinner MD Primary Care Provider Katherine Blake Bourgeois MD Primary Care Provider Unavail able Celina Mann DO Primary Care Pro vider Unavailable Mercedes Han MD Primary Care Provider [phone] Celina Mann DO Primary Care Pro vider Unavailable Mercedes Han MD Primary Care Provider + [phone] Callum Hernandez DO Primary Care Provider Katherine Lopez Aragon MD Primary Care Provider Buddy Foy NP Primary Care Provider Unavail able [facility], Pcp Primary Care Provider UnavailBuddy Stephen NP Primary Care Provider Unavail able Encounter Details Date Type Department Care Team Description 08/26/2012 Hospital Medical Records [address] [place] [address] Pamela Shahid DO Social History Tobacco Use [...] on filedocumented in this encounter Care Teams Rivet Tester Relationship Specialty Start Date End Date Luciano Skinner MD PCP - General 12/13/10 05/10/14 Blake Rivera MD PCP - General Internal Medicine 05/11/14 03/03/15 Celina Mann, PCP - General Internal Medicine 03/04/15 02/06/16 Mercedes Han MD [address] [place] [address] PCP - General Internal Medicine 02/07/16 03/20/16 Celina Mann, PCP - General Internal Medicine 03/21/16 11/23/20 Mercedes Han MD [address] [place] [address] PCP - General Internal Medicine 11/24/20 01/11/21 Callum Hernandez DO [address] [place], [place] [phone] PCP - General Internal Medicine 01/12/21 03/19/21 Lopez Brennan MD [address] [place] [address] PCP - General Internal Medicine 03/20/21 10/19/21 Buddy Shaw NP [address] [place] [address] 56744 PCP - General Family Practice 10/20/21 01/04/22 [facility], Pcp [address] [place] [address] PCP - General Internal Medicine 01/05/22 11/28/22 Buddy Shaw NP [address] [place], [place] [phone] PCP - General Family Practice 11/29/22 documented as of this encounter
--- OUTSIDE RECORDS SUMMARY | 2025-05-18 17:57 | XMS_ITS | Encounter Summary ---
Author Organization [employer] [facility] Prior to 04/03/2024 Address [address] [place] [address] Care Team Providers Care Resistance Welding Machine Operator Name Role Phone Celina Mann DO Primary Care Pro vider Unavailable Mercedes Han MD Primary Care Provider [phone] Callum Hernandez DO Primary Care Provider Lopez Lu MD Primary Care Provider Buddy Foy NP Primary Care Provider Unavail able [facility], Pcp Primary Care Provider Buddy Marlow NP Primary Care Provider Unavail able Encounter Details Date Type Department Care Team Description 07/24/2018 Pt. Non Urgent Medic al Question Adult Medicine [address] [address] Celina Mann DO Social History [...] on filedocumented in this encounter Care Teams Resistance Welding Machine Operator Relationship Specialty Start Date End Date Celina Mann DO PCP - General Internal Medicine 03/21/16 11/23/20 Mercedes Han MD [address] [place], [place] [phone] PCP - General Internal Medicine 11/24/20 01/11/21 Callum Hernandez DO [address] [place], [place] [address] PCP - General Internal Medicine 01/12/21 03/19/21 Lopez Brennan MD [address] [place] [address] PCP - General Internal Medicine 03/20/21 10/19/21 Buddy Shaw NP [address] [place] [address] PCP - General Family Practice 10/20/21 01/04/22 [facility], [place] [phone] PCP - General Internal Medicine 01/05/22 11/28/22 uBddy Shaw NP [address] [place] [address] PCP - General Family Practice 11/29/22 documented as of this encounter
--- OUTSIDE RECORDS SUMMARY | 2025-05-18 17:57 | XMS_ITS | Encounter Summary ---
Author Organization [facility] Prior to 04/03/2024 Address [address] [place] [address] Care Team Providers Care Crown Attacher Name Role Phone Luciano Skinner MD Primary Care Provider Katherine Blake Bourgeois MD Primary Care Provider Unavail able Celina Mann DO Primary Care Pro vider Unavailable Mercedes Han MD Primary Care Provider [phone] Celina Mann DO Primary Care Pro vider Unavailable Mercedes Han MD Primary Care Provider [phone] Callum Hernandez DO Primary Care Provider Katherine [place] Aragon MD Primary Care Provider Buddy Foy NP Primary Care Provider Unavail able [facility], Pcp Primary Care Provider UnavailBuddy Stephen NP Primary Care Provider Unavail able Encounter Details Date Type Department Care Team Description 11/14/2012 Plastic Panel Installer Report Medical Records [address] [place] [address] Jesús Martinez Social History Tobacco Use Types [...] on filedocumented in this encounter Care Teams Crown Attacher Relationship Specialty Start Date End Date Brody, Luciano M., MD PCP - General 12/13/10 05/10/14 Blake Rivera MD PCP - General Internal Medicine 05/11/14 03/03/15 Celina Mann, PCP - General Internal Medicine 03/04/15 02/06/16 Mercedes Han MD [address] [place] [address] PCP - General Internal Medicine 02/07/16 03/20/16 Celina Mann, PCP - General Internal Medicine 03/21/16 11/23/20 Mercedes Han MD [address] [place] [address] PCP - General Internal Medicine 11/24/20 01/11/21 Callum Hernandez DO [address] [place] [address] PCP - General Internal Medicine 01/12/21 03/19/21 [place] Brennan MD [address] [place] [address] PCP - General Internal Medicine 03/20/21 10/19/21 Buddy Shaw NP [address] [place] [address] PCP - General Family Practice 10/20/21 01/04/22 [facility], Pcp [address] [place] [address] PCP - General Internal Medicine 01/05/22 11/28/22 Buddy Shaw NP [address] [place] [address] PCP - General Family Practice 11/29/22 documented as of this encounter
--- OUTSIDE RECORDS SUMMARY | 2025-05-18 17:57 | XMS_ITS | Encounter Summary ---
Author Organization [facility] Prior to 04/03/2024 Address [address] [place] [address] Care Team Providers Care Medical Research Tech Name Role Phone Luciano Skinner MD Primary Care Provider Katherine Blake Bourgeois MD Primary Care Provider Unavail able Celina Mann DO Primary Care Pro vider Unavailable Mercedes Han MD Primary Care Provider [phone] Celina Mann DO Primary Care Pro vider Unavailable Mercedes Han MD Primary Care Provider [phone] Callum Hernandez DO Primary Care Provider Katherine [place] Aragon MD Primary Care Provider [place]dy Foy NP Primary Care Provider Unavail able [facility], Pcp Primary Care Provider UnavailBuddy Stephen NP Primary Care Provider Unavail able Encounter Details Date Type Department Care Team Description 12/31/2013 Hospital Medical Records [address] [place] [address] Chao Falcon Social History Tobacco Use Types [...] filedocumented in this encounter Care Teams Medical Research Tech Relationship Specialty Start Date End Date Luciano Skinner MD PCP - General 12/13/10 05/10/14 Blake Rivera MD PCP - General Internal Medicine 05/11/14 03/03/15 Celina Mann, PCP - General Internal Medicine 03/04/15 02/06/16 Mercedes Han MD [address] [place], [place] [id number] PCP - General Internal Medicine 02/07/16 03/20/16 Celina Mann, PCP - General Internal Medicine 03/21/16 11/23/20 Mercedes Han MD [address] [place] [address] PCP - General Internal Medicine 11/24/20 01/11/21 Callum Hernandez DO [address] [place], [place] [phone] PCP - General Internal Medicine 01/12/21 03/19/21 [place] Brennan MD [address] [place] [address] PCP - General Internal Medicine 03/20/21 10/19/21 Buddy Shaw NP [address] [place] [address] PCP - General Family Practice 10/20/21 01/04/22 [facility], Pcp [address] [place] [address] PCP - General Internal Medicine 01/05/22 11/28/22 Buddy Shaw NP [address] [place], [place] [phone] PCP - General Family Practice 11/29/22 documented as of this encounter
--- OUTSIDE RECORDS SUMMARY | 2025-05-18 17:57 | XMS_ITS | Encounter Summary ---
Author Organization [facility] Prior to 04/03/2024 Address [address] [place] [address] Care Team Providers Care Gear Straightener Name Role Phone Celina Mann DO Primary Care Pro vider Unavailable Mercedes Han MD Primary Care Provider [phone] Callum Hernandze DO Primary Care Provider [place] Lu MD Primary Care Provider [place]dy Foy NP Primary Care Provider Unavail [facility] Pcp Primary Care Provider [place]dy Marlow NP Primary Care Provider Unavail able Encounter Details Date Type Department Care Team Description 11/02/2016 Hide Stretcher Hand Report Medical Records [address] [place] [address] Tristen Díaz MD Social History Tobacco Use [...] on filedocumented in this encounter Care Teams Gear Straightener Relationship Specialty Start Date End Date Celina Mann DO PCP - General Internal Medicine 03/21/16 11/23/20 Mercedes Han MD [address] [place] [address] PCP - General Internal Medicine 11/24/20 01/11/21 Callum Hernandez DO [address] [place] [address] PCP - General Internal Medicine 01/12/21 03/19/21 [place] Brennan MD [address] [place] [address] PCP - General Internal Medicine 03/20/21 10/19/21 [place]dy Shaw NP [address] [place] [phone] PCP - General Family Practice 10/20/21 01/04/22 [facility], Pcp [address] [place] [address] PCP - General Internal Medicine 01/05/22 11/28/22 Buddy Shaw NP [address] [place], [place] [phone] PCP - General Family Practice 11/29/22 documented as of this encounter
--- OUTSIDE RECORDS SUMMARY | 2025-05-18 17:57 | XMS_ITS | Encounter Summary ---
Author Organization [facility] Prior to 04/03/2024 Address [address] [place] [address] Care Team Providers Care Bibliographic Services Specialist Name Role Phone Luciano Michelle MD Primary Care Provider Katherine Blake Bourgeois MD Primary Care Provider Unavail able Celina Mann DO Primary Care Pro vider Unavailable Mercedes Han MD Primary Care Provider [phone] Celina Mann DO Primary Care Pro vider Unavailable Mercedes Han MD Primary Care Provider [phone] Callum Hernandez DO Primary Care Provider Ktaherine [place] Aragon MD Primary Care Provider [place]dy Foy NP Primary Care Provider Unavail able [facility], Pcp Primary Care Provider UnavailBuddy Stephen NP Primary Care Provider Unavail able Reason for Visit * Reason Onset Date Comments TEST RESULTS 03/29/2014 Encounter Details Date Type Department Care Team Description 03/29/2014 Telephone Adult Medicine [address] [address] Luciano Michelle MD TEST RESULTS Social History [...] performed: 03-25-2014 Where was the test performed: [facility] Who ordered this test?: dr michelle Is [...] on filedocumented in this encounter Care Teams Bibliographic Services Specialist Relationship Specialty Start Date End Date Luciano Michelle MD PCP - General 12/13/10 05/10/14 [place] Rivera MD PCP - General Internal Medicine 05/11/14 03/03/15 Celina Mann DO PCP - General Internal Medicine 03/04/15 02/06/16 Mercedes Han MD [address] [place] [address] PCP - General Internal Medicine 02/07/16 03/20/16 Celina Mann DO PCP - General Internal Medicine 03/21/16 11/23/20 Mercedes Han MD [address] [place] [address] PCP - General Internal Medicine 11/24/20 01/11/21 Callum Hernandez DO [address] [place] [address] PCP - General Internal Medicine 01/12/21 03/19/21 [place] Brennan MD [address] [place] [address] PCP - General Internal Medicine 03/20/21 10/19/21 Buddy Shaw NP [address] [place] [address] PCP - General Family Practice 10/20/21 01/04/22 [facility], Pcp [address] [place] [address] PCP - General Internal Medicine 01/05/22 11/28/22 Buddy Shaw NP [address] [place] [address] PCP - General Family Practice 11/29/22 documented as of this encounter
--- OUTSIDE RECORDS SUMMARY | 2025-05-18 17:57 | XMS_ITS | Encounter Summary ---
Author Organization [facility] Prior to 04/03/2024 Address [address] [place] [address] Care Team Providers Care Health Officer Name Role Phone Celina Mann DO Primary Care Pro vider Unavailable Mercedes Han MD Primary Care Provider [phone] Callum Hernandez DO Primary Care Provider [place] Lu MD Primary Care Provider Buddy Foy NP Primary Care Provider Unavail able [facility] Primary Care Provider Buddy Marlow NP Primary Care Provider Unavail able Reason for Referral * EXTERNAL (Priority) - Authorized/Booked Specialty Diagnoses / Procedures Referred By Kailey dominguez Referred To Contact Rheumatology Procedures REFERRAL TO RHEUMATOLOGY Celina Mann DO [address] [place] [id number] [place] [id number] Referral ID Status Reason Start Date Expiration Date V isits Requested Visits Authorized SEE NOTE Authorized/B ooked 08/04/2018 11/05/2018 1 1 Encounter Details Date Type Department Care Team Description 08/04/2018 Orders Only Adult Medicine [address] [address] Celina Mann DO Social History Tobacco Use [...] on filedocumented in this encounter Care Teams Health Officer Relationship Specialty Start Date End Date Celina Mann DO PCP - General Internal Medicine 03/21/16 11/23/20 Mercedes Han MD [address] [place] [address] PCP - General Internal Medicine 11/24/20 01/11/21 Callum Hernandez DO [address] [place] [address] PCP - General Internal Medicine 01/12/21 03/19/21 [place] Brennan MD [address] [place] [address] PCP - General Internal Medicine 03/20/21 10/19/21 Buddy Shaw NP [address] [place] [address] PCP - General Family Practice 10/20/21 01/04/[address] [address] PCP - General Internal Medicine 01/05/22 11/28/22 [place] Shaw NP [address] [place] [address] PCP - General Family Practice 11/29/22 documented as of this encounter
--- OUTSIDE RECORDS SUMMARY | 2025-05-18 17:57 | XMS_ITS | Encounter Summary ---
Author Organization [facility] Prior to 04/03/2024 Address [address] [place] [address] Care Team Providers Care Rechecker Name Role Phone Celina Mann DO Primary Care Pro vider Unavailable Mercedes Han MD Primary Care Provider [phone] Callum Hernandez DO Primary Care Provider [place] Lu MD Primary Care Provider Buddy Foy NP Primary Care Provider Unavail able [facility] Primary Care Provider [place]dy Marlow NP Primary Care Provider Unavail able Encounter Details Date Type Department Care Team Description 11/21/2020 Carpenter Railcar Report Medical Records [address] [place] [address] Center[facility] [address] [place] [address] Social History Tobacco Use Types Packs/Day Years [...] on filedocumented in this encounter Care Teams Rechecker Relationship Specialty Start Date End Date Celina Mann DO PCP - General Internal Medicine 03/21/16 11/23/20 Mercedes Han MD [address] [place], [place] [phone] PCP - General Internal Medicine 11/24/20 01/11/21 Callum Hernandez DO [address] [place], [place] [address] PCP - General Internal Medicine 01/12/21 03/19/21 [place] Brennan MD [address] [place] [address] PCP - General Internal Medicine 03/20/21 10/19/21 [place]dy Shaw NP [address] [place], [place] [address] PCP - General Family Practice 10/20/21 01/04/22 [facility], [address] [address] PCP - General Internal Medicine 01/05/22 11/28/22 [place]dy Shaw NP [address] [place] [address] PCP - General Family Practice 11/29/22 documented as of this encounter
--- OUTSIDE RECORDS SUMMARY | 2025-05-18 17:57 | XMS_ITS | Encounter Summary ---
Author Organization [employer] [facility] Prior to 04/03/2024 Address [address] [place] [address] Care Team Providers Care Calculation Clerk Name Role Phone Luciano Skinner MD Primary Care Provider Katherine Blake Bourgeois MD Primary Care Provider Unavail able Celina Mann DO Primary Care Pro vider Unavailable Mercedes Han MD Primary Care Provider [phone] Celina Mann DO Primary Care Pro vider Unavailable Mercedes Han MD Primary Care Provider [phone] Callum Hernandez DO Primary Care Provider Katherine [place] Aragon MD Primary Care Provider Buddy Foy NP Primary Care Provider Unavail able [facility], Pcp Primary Care Provider UnavailBuddy Stephen NP Primary Care Provider Unavail able Encounter Details Date Type Department Care Team Description 03/15/2014 Seam Steamer Report Medical Records [address] [place] [address] Social History Tobacco Use Types Packs/Day Years [...] on filedocumented in this encounter Care Teams Calculation Clerk Relationship Specialty Start Date End Date Luciano Skinner MD PCP - General 12/13/10 05/10/14 [place] Rivera MD PCP - General Internal Medicine 05/11/14 03/03/15 Celina Mann, DO PCP - General Internal Medicine 03/04/15 02/06/16 Mercedes Han MD [address] [place] [address] PCP - General Internal Medicine 02/07/16 03/20/16 Celina Mann, PCP - General Internal Medicine 03/21/16 11/23/20 Mercedes Han MD [address] [place] [address] PCP - General Internal Medicine 11/24/20 01/11/21 Callum Hernandez DO [address] [place] [address] PCP - General Internal Medicine 01/12/21 03/19/21 [place] Brennan MD [address] [place] [address] PCP - General Internal Medicine 03/20/21 10/19/21 Buddy Shaw NP [address] [place] [address] PCP - General Family Practice 10/20/21 01/04/22 [facility], Pcp [address] [place] [address] PCP - General Internal Medicine 01/05/22 11/28/22 Buddy Shaw NP [address] [place] [address] PCP - General Family Practice 11/29/22 documented as of this encounter
--- OUTSIDE RECORDS SUMMARY | 2025-05-18 17:57 | XMS_ITS | Encounter Summary ---
Author Organization [employer] [facility] Prior to 04/03/2024 Address [address] [place] [address] Care Team Providers Care Crane Operator Cab Name Role Phone Celina Mann DO Primary Care Pro vider Unavailable Mercedes Han MD Primary Care Provider [phone] Callum Hernandez DO Primary Care Provider [place] Lu MD Primary Care Provider Buddy Foy NP Primary Care Provider Unavail able [facility], Pcp Primary Care Provider Buddy Marlow NP Primary Care Provider Unavail able Encounter Details Date Type Department Care Team Description 12/11/2016 Pt. Non Urgent Medical Question Pulmonology [address] [place] [address] Eula Norris FNP [address] [place] [address] Social History Tobacco Use Types Packs/Day Years [...] as of this encounter Progress Notes * Marj Jacobson L.P.N. - 12/11/2016 8:42 AM EDTFrom: Nereida Goddard To: LESVIA Lujan Sent: 12/11/2016 8:37 AM EDT Subject: Dozing off during the day good morning Eula, this is Nereida Goddard I'm calling because I have some concerns about my sleeppattern I've been dozing more and more during the day my eyes just close without my realizing it and what scared me yesterday was I was on the phone with a customer and it happened on the phone I don't know if I should be talking to my neurologist but I'm kind of scared if you could give me a call or text me back I'd appreciate it thank you documented in this encounter Plan of Treatment Not on file documented as of this encounter Visit Diagnoses Not on filedocumented in this encounter Care Teams Crane Operator Cab Relationship Specialty Start Date End Date Celina Mann DO PCP - General Internal Medicine 03/21/16 11/23/20 Mercedes Han MD [address] [place] [address] PCP - General Internal Medicine 11/24/20 01/11/21 Callum Hernandez DO [address] [place] [address] PCP - General Internal Medicine 01/12/21 03/19/21 [place] Brennan MD [address] [place] [address] PCP - General Internal Medicine 03/20/21 10/19/21 Buddy Shaw NP [address] [place], [place] [address] PCP - General Family Practice 10/20/21 01/04/[address] [address] PCP - General Internal Medicine 01/05/22 11/28/22 Buddy Shaw NP [address] [place] [address] PCP - General Family Practice 11/29/22 documented as of this encounter
--- OUTSIDE RECORDS SUMMARY | 2025-05-18 17:57 | XMS_ITS | Encounter Summary ---
Author Organization [facility] Prior to 04/03/2024 Address [address] [place] [address] Care Team Providers Care Metallurgical Inspector Name Role Phone Celina Mann DO Primary Care Pro vider Unavailable Mercedes Han MD Primary Care Provider [phone] Callum Hernandez DO Primary Care Provider [place] Lu MD Primary Care Provider Buddy Foy NP Primary Care Provider Unavail able [facility] Primary Care Provider Buddy Marlow NP Primary Care Provider Unavail able Encounter Details Date Type Department Care Team Description 04/27/2018 Release of Information Medical Records [address] [place] [address] Abstract, Provider Social History Tobacco Use Types [...] on filedocumented in this encounter Care Teams Metallurgical Inspector Relationship Specialty Start Date End Date Celina Mann DO PCP - General Internal Medicine 03/21/16 11/23/20 Mercedes Han MD [address] [place] [address] PCP - General Internal Medicine 11/24/20 01/11/21 Callum Hernandez DO [address] [place] [address] PCP - General Internal Medicine 01/12/21 03/19/21 [place] Brennan MD [address] [place], [place] [phone] PCP - General Internal Medicine 03/20/21 10/19/21 Buddy Shaw NP [address] [place] [address] PCP - General Family Practice 10/20/21 01/04/22 [facility], [place] [id number] PCP - General Internal Medicine 01/05/22 11/28/22 Buddy Shaw NP [address] [place] [address] PCP - General Family Practice 11/29/22 documented as of this encounter
--- OUTSIDE RECORDS SUMMARY | 2025-05-18 17:57 | XMS_ITS | Encounter Summary ---
Author Organization [facility] Prior to 04/03/2024 Address [address] [place] [address] Care Team Providers Care Adolescent Medicine Specialist Name Role Phone Celina Mann DO Primary Care Pro vider Unavailable Mercedes Han MD Primary Care Provider [phone] Callum Hernandez DO Primary Care Provider [place] Lu MD Primary Care Provider [place]dy Foy NP Primary Care Provider Unavail able [facility], Pcp Primary Care Provider UnavailBuddy Stephen NP Primary Care Provider Unavail able Reason for Visit * Reason Onset Date Comments Pug Machine Operator Feedback 07/28/2018 PVC Encounter Details Date Type Department Care Team Description 07/28/2018 Telephone Adult [address] [address] Celina Mann DO Pug Machine Operator Feedback (PVC) Social History Tobacco Use Types [...] referral required per patient's insurance. Order faxed [facility] Cardiology [phone] and office notes can be pulled from the office by Epic Link [facility] Cardiology [phone] Notification letter mailed to patient, PVC will contact patient with appointment information documented in this encounter Plan of Treatment Not on file documented as of this encounter Visit Diagnoses Not on filedocumented in this encounter Care Teams Adolescent Medicine Specialist Relationship Specialty Start Date End Date Celina Mann DO PCP - General Internal Medicine 03/21/16 11/23/20 Mercedes Han MD [address] [place] [address] PCP - General Internal Medicine 11/24/20 01/11/21 Callum Hernandez DO [address] [place] [address] PCP - General Internal Medicine 01/12/21 03/19/21 [place] Brennan MD [address] [place] [address] PCP - General Internal Medicine 03/20/21 10/19/21 Buddy Shaw NP [address] [place] [address] PCP - General Family Practice 10/20/21 01/04/[address] [address] PCP - General Internal Medicine 01/05/22 11/28/22 Buddy Shaw NP [address] [place] [address] PCP - General Family Practice 11/29/22 documented as of this encounter
== END 2025-05-18 13:11 | disposition home or self-care (01) ==
LOC: HO.LAB 13:10
PROVIDERS: Physician Assistant Medical; PCP Nurse Practitioner Family
DX: Z03.818 Encounter for observation for suspected exposure to other biological agents ruled out (principal)
CPT/HCPCS: 87637; 99212

== ENCOUNTER 2025-05-18 13:10 | Outpatient (AMB) | payer MEDICARE, SELFPAY ==
--- OUTSIDE RECORDS SUMMARY | 2024-03-10 03:45 | XMS_ITS ---
[facility] Address [address] [place] [address] Care Team Providers Care Sawmill Relief Worker Name Role Phone Buddy Bolden Primary Care Provider Unav ailable Leandro Harvey Unavailable [phone] Martinez Encounters Encounter Location Date Provider Diagnosis [address] [address] 03/10/2024 Leandro Harvey Plan Of Treatment Next Appt Details Provider Name:Heidy monroy, 06/09/2025 10:15:00 AM, [address] [place] [address], [phone], Provider Name:Leandro Harvey , 07/27/2025 09:00:00 AM, [address] [place] [address], [phone], Progress Notes * Nereida MCBRIDE ADOB:[birth year] (70 yo F)Acc No.[id number]:03/10/2024 Progress Note Patient: Nereida ARRIOLA Provider: Beth Harvey DPM :1955 A ge:69 Y S ex:Female Date:03/10/2024 [address] [id number] Pcp:DEB Mcclure Subjective: * Chief Complaints: [...] Beth Harvey DPM Date: Generated for Gale rogers/Anais/Cassie on: 07/19/2024 05:09 PM EST
--- OUTSIDE RECORDS SUMMARY | 2024-06-05 04:15 | XMS_ITS ---
Author Organization [facility] Address [address] [facility] [place] [address] Care Team Providers Care Milk Route Supervisor Name Role Phone Buddy Bolden Primary Care Provider Unav ailable Leandro Harvey Unavailable [phone] Allergies Allergen (clinical drug ingredient) Drug/Non Drug [...] Active Encounters Encounter Location Date Provider Diagnosis [facility] [address] [address] 06/05/2024 Leandro Harvey Plan Of Treatment Next Appt Details Provider Name:Heidy Juan David monroy, 06/09/2025 10:15:00 AM, [address] [place] [address], [phone], Provider Name:Leandro Harvey , 07/27/2025 09:00:00 AM, [address] [place] [address], [address], Progress Notes * Nereida MCBRIDE ADOB:[birth year] (70 yo F)Acc No.[id number]:06/05/2024 Progress Note Patient: Nereida ARRIOLA Provider: Beth Harvey DPM :1955 A ge:69 Y S ex:Female Date:06/05/2024 Address:[address] [place] [id number] Pcp:Buddy Shaw NP-ALLEN Subjective: * Chief Complaints: [...] DPM Date: 0 06/05/2024 Generated for Gale rogers/Pia on: 07/19/2024 05:09 PM EST
[2025-05-18 13:16] VITALS: BP 110/62; PULSE 82; TEMP 36.7; O2SAT 98; BMI 35.5
--- NOTE | 2025-05-18 13:16 | AM.OFFWIN_ITS ---
Intake Vital Signs 05/18/25 13:16 Height 5 ft 4 in Weight 207 lb BMI 35.5 BP 110/62 Blood Pressure Location Lt brachial Position Sitting Pulse 82 Pulse Source Pulse Oximeter Temp 98.1 F Temp Source Oral Pulse Oximetry (%) 98 Oxygen Delivery Method Room Air Intake Visit Reasons: EP-nauseas, dizziness, light head, dry eyes Intake Note: Patient presents c/o dry eyes, eye pressure, no energy, lack of appetite, dizziness, nausea for a couple days. Patient Tobacco Use Status: Current everyday Tobacco user Allergies No Known Allergies (No Known Allergies*) Allergy (Verified 05/18/25 13:22) HPI HPI Comments History of Present Illness Details History of Present Illness - The patient is a 70-year-old female pr esenting with vertigo, nausea, and a sty on her eye. - Her symptoms began on night w ith an itchy and dry eye, followed by the development of a sty. - She used an OTC stye kit at home and s he had some discharge and relief. - She reports feeling overtired and slee ping all weekend. - This morning, upon sitting up in bed, she experienced an acute onset of vertigo, describing it as the room spinning, which led to nausea without emesis. - She also feels completely uneasy on he r feet and reports a loss of appetite. - She has congestion and pressure behind her eyes. - She has loss of taste, which is usual when she has a sinus infection. - The patient has been using an over-the -counter sty kit, and notes the sty appears to be improving. - She has persistent dry eyes despite us ing drops and feels intermittent pressure in her right eye. - She has a lifelong history of sinusiti s, typically experiencing about three episodes a year. - Past treatments for sinus infections h ave included amoxicillin. - She was seen for a sinus infection las t April and for allergic rhinitis in August. - She has no sick contacts. - She did not vomit. - She denies CP, SOB, URIAS, syncope, abd p ain, sore throat, cough, or ear pain. Physical Exam General: Cooperative, healthy appearing, comfortable, no acute distress and well developed Orientation: Patient oriented x3 Limitations: No limitations Head: Normal to inspection Ears: Hearing grossly normal bilaterally. Erythema noted in the right ear canal. Nose: Normal external nose present Face and sinus: Normal facial exam. TTP of facial tenderness. Eyes: Appearance normal, both eyes and all related structures. PERRLA. EOMI. Small area of erythema noted on the left upper lid. No nystagmus noted. Neck: Normal visual inspection and Yes full ROM Respiratory: Normal respiratory effort and able to speak in complete sentences. Clear to auscultation bilaterally. No w/r/r noted. Cardiovascular: Regular rate and rhythm. Normal S1 and S2. No m/r/g noted. GI: Normal to inspection. Soft to palpation and nontender. No guarding noted. Skin: No rashes or lesions noted Neuro: Patient oriented x3. CN II-XII intact. Patient was informed and verbally consented to the use of an ambient scribe for clinic note documentation during this visit. [facility] Medical History Allergic rhinitis Chronic pain syndrome SVT (supraventricular tachycardia) Elevated cholesterol Obstructive sleep apnea of adult Nicotine dependence, cigarettes, uncomplicated Osteopenia GERD (gastroesophageal reflux disease) Tubular adenoma Depression with anxiety Sacroiliitis Arthritis Swelling of knee joint, left Tardive dyskinesia Surgical History History of colonoscopy History of hysterectomy History of rotator cuff surgery History of hand surgery History of cardiac radiofrequency ablation (RFA) Family History Father Mental health disorder Paternal Grandfather Mental health disorder Daughter Mental health disorder Mother Lung cancer Social History Household Members Other:: daughter Housing: House Are you a primary health care aide to a significant other at home: No Do you presently have visiting nurse or other home services: No Patient Tobacco Use Status: Current everyday Tobacco user Tobacco use type: Cigarette Years Smoked: (onset 17yo, 1/2-1ppd x 50yrs, 35pyh) e-Cigarette/Vaping Use: Never Used Second Hand Smoke Exposure: No service: No Current occupational status: retired Current occupation: works part [employer] Current occupational exposures/hazards: No Cognitive needs: No Hearing needs: No Vision needs: Yes Review of Systems Const All systems reviewed & are unremarkable except as noted in HPI and below Physical Exam Vital Signs: Last Vital Signs Temp 98.1 F 05/18/25 13:16 Pulse 82 05/18/25 13:16 BP 110/62 05/18/25 13:16 Pulse Ox 98 05/18/25 13:16 Oxygen Delivery Method Room Air 05/18/25 13:16 BMI result Body Mass Index 35.5 Assessment & Plan Assessment & Plan (1) Sinus congestion: Code(s): R09.81 - Nasal congestion (2) Dizziness: Code(s): R42 - Dizziness and giddiness Plan Most likely Acute Sinusitis vs allergic rhinitis vs viral illness plan - The patient's symptoms of vertigo, nausea, and eye pressure are attributed to an acute sinus infection, given her history and exam findings. - A 5-day course of prednisone and an antibiotic will be prescribed. - The patient is advised to continue using Flonase and to utilize steam showers. - A nasal swab for COVID-19 and influenza was collected. - The patient should return for re-evaluation if her symptoms do not resolve within 24 to 48 hours of starting medication. - A prescription for an anti-nausea medication will be sent to the pharmacy in case it is needed. - follow up with PCP Orders: Orders SARS-CoV2/FLU/RSV Today R09.89 - Other specified symptoms and signs involving the circulatory and respiratory systems Medications: New amoxicillin-pot clavulanate 875-125 mg 1 tab PO Q12H 14 tabs 0RF ondansetron 4 mg PO Q8H PRN 10 tabs 0RF nausea and vomiting prednisone 40 mg (2 x 20 mg) PO DAILY 10 tabs 0RF 5 days Coding Level of Care Code Est Pt Level 3 (20408) Diagnoses Sinus congestion R09.81 Dizziness R42
--- OUTSIDE RECORDS SUMMARY | 2025-05-18 17:12 | XMS_ITS | Patient Health Record ---
Author Organization [facility] Address [address] [place] [address] Care Team Providers Care Construction Job Cost Estimator Name Role Phone Annette Fong Primary Care [...] needed Orally Three times a day Active [place] Fatty Acids-Vitamins Active DULoxetine HCl 60 MG 1 capsule Orally On ce a day Active Multivitamin Active Problems Problem Type SNOMED Code ICD Code Onset Dates Problem Status W/U Status Risk Notes Problem Polyneuropathy (56078157) Other specified polyneuropathies (G62.89) Active confirmed Plan Of Treatment No Information Insurance Providers Payer Name Payer Address Payer Phone Subscriber Number Group Number Insured Name Patient Relationship to Insured Coverage Start Date Coverage End Date [facility] [address] [place] [phone] [id number] Nereida Mcbride Self - patient is the [...]
--- OUTSIDE RECORDS SUMMARY | 2025-05-18 17:12 | XMS_ITS | Patient Health Record ---
Author Organization [facility] Address [address] [place] [address] Care Team Providers Care Vice President Planning Name Role Phone Buddy Bolden Primary Care Provider Unav ailable Leandro Harvey Unavailable [phone] Allergies Allergen (clinical drug ingredient) Drug/Non Drug Allergy documented on EMR Reaction Allergy Type Onset Date Status pregabalin Lyrica dizziness Drug Allergy Active Reason For Referral No Information Medications Medication SIG (Take, Route, Frequency, Duration) Notes Start Date End Date Status Ciclopirox 0.77 % 1 application to affected area Externally Twice a day to effected nails; Duration: 30 days Not-Taking DULoxetine HCl 30 MG 1 capsule [...] Status Comme nts Influenza Unknown 03/03/2024 Administered Influenza Unknown 03/05/2025 Administered COVID-19 Moderna Vaccine Unknown 10/04/2021 Administered 1st 07/19/20 2nd 08/16/20 3rd 03/25/21 Social History Tobacco Use: Social History Observation Description Date Details (start date - stop date) Current Smoker 01/01/1975 - NA Tobacco use other than smoking: Question Answer [...] W/U Status Risk Notes Problem Tinea unguium (974980607) Tinea unguium (B35.1) Active confirmed Response to treatment,U nresolved Problem 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 Vital Signs Blood pressure diastolic 60 mm Hg 04/23/2025 Height 5ft4in in 04/23/2025 Blood pressure systolic 130 mm Hg 04/23/2025 Weight 208 lbs 04/23/2025 BMI 35.7 kg/m2 04/23/2025 Encounters Encounter Location Date Provider Diagnosis [facility] [address] [address] 01/05/2025 Leandro Wes Tinea unguium B35.1 ; Pain in right toe(s) M79.674 and Pain in left toe(s) M79.[address] [facility] [address] [address] 04/23/2025 Leandro Wes Tinea unguium B35.1 ; Pain in right toe(s) M79.674 ; Pain in left toe(s) M79.675 ; Pain in right foot M79.671 ; Plantar fibromatosis M72.2 and 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.21 [facility] [address] [address] 06/05/2024 Leandro Harvey Assessments Encounter Date Diagnosis (ICD Code) Assessment Notes Treatment Notes Treatment Clinical Notes Section Notes 04/23/2025 Tinea unguium (ICD-10 - B35.1) Response to treatment,Unres olved 04/23/2025 Pain in right toe(s) (ICD-10 - M79.674) 01/05/2025 Tinea unguium (ICD-10 - B35.1) Response to treatment,Unres olved 01/05/2025 Pain in right toe(s) (ICD-10 - M79.674) 01/05/2025 Pain in left toe(s) (ICD-10 - M79.675) 04/23/2025 Pain in left toe(s) (ICD-10 - M79.675) 04/23/2025 Pain in right foot (ICD-10 - M79.671) 04/23/2025 Plantar fibromatosis (ICD-10 - M72.2) 04/23/2025 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 (ICD-10 - D21.21) Plan Of Treatment Pending Test Test Name Order Date 13023-Afyx Destruction, 1-14 03/03/2024 31754- Removal of Foreign Body, Subcut 1 50,[id number] TENDON SHEATH/LIGAMENT 1 [id number] TENDON SHEATH/LIGAMENT 0 02/15/2014 [id number] TENDON SHEATH/LIGAMENT 0 02/23/201479792,[id number] TENDON SHEATH/LIGAMENT 1 Next Appt Details Provider Name:Heidy monroy, 06/09/2025 10:15:00 AM, [address] [place] [address], [phone], Provider Name:Leandro Harvey , 07/27/2025 09:00:00 AM, [address] [place] [address], [phone], Insurance Providers Payer Name Payer Address Payer Phone Subscriber Number Group Number Insured Name Patient Relationship to Insured Coverage Start Date Coverage End Date Medicare [facility] [address] [place] [address] [id number] Nereida Mcbride Self - patient is the insured [employer] [address] [place] [address] [id number] Nereida Mcbride Self - patient is the insured Medical (General) History Medical History History ICD Code Anxiety Arthritis Back,Hip,and Knee pain sinusitis Measles Mumps Chicken pox Joint implants/screws CAD (Cholesterol) Depression Surgical History Surgery Date(Month/Year) rods in both shoulders Left SQ Plantar Fibroma/S.T. Mass (Unspe c) 09/2014 rotator cuff 2006 colonoscopy
--- OUTSIDE RECORDS SUMMARY | 2025-05-18 17:12 | XMS_ITS | Clinical Summary ---
Author Organization [facility] Address [address] [place] [address] Care Team Providers Care Forensic Specialist Name Role Phone Buddy Shaw NP Primary [...] on file Sexual Orientation Not on file Plan of Treatment Health Maintenance Due Date [...] Recently Relevant to Health Maintenance Care Teams Forensic Specialist Relationship Specialty Start Date End Date Buddy Shaw, [facility] [address] [facility] [place] P[facility] - General 11/29/22
== END 2025-05-18 14:51 | disposition home or self-care (01) ==
PROVIDERS: PCP Nurse Practitioner Family; Visit Provider Physician Assistant Medical
DX: R09.81 Nasal congestion (principal); R42 Dizziness and giddiness